=== PATIENT | male | born 1965 | race Caucasian/White ===

== ENCOUNTER 2016-03-21 06:15 | Emergency (ER) | payer OTHER, BC ==
[~2016-03-21] VITALS: Ht 177.8 cm; Wt 83.9 kg
[2016-03-21 06:28] VITALS: TEMP 36.5; Ht 177.8 cm; Wt 83.9 kg
--- NOTE | 2016-03-21 07:27 | DIAGNOSTIC IMAGING REPORT ---
CT SCAN OF THE BRAIN WITHOUT IV CONTRAST CLINICAL HISTORY: Trauma. Fall. COMPARISON STUDY: CT scan of the brain dated 04/27/2013. TECHNIQUE: Unenhanced axial CT scan of the brain is performed from the vertex to the skull base. Automated dose control exposure was utilized. CT DOSE: 537.48 mGy.cm FINDINGS: Brain parenchyma: There are age-advanced involutional changes noting mild subcortical and periventricular microangiopathic disease. There is no hemorrhage, mass effect, or evidence of acute territorial ischemia by CT criteria. Robert-white matter is preserved. No extra-axial fluid collection is seen. Cerebellar calcifications are again noted. Ventricles, sulci, cisterns: Prominent secondary to involutional change. Intracranial vasculature: There is advanced atherosclerotic calcification of the cavernous carotid and vertebral arteries. Calvarium: There is no depressed calvarial fracture. Soft tissues: There is a small frontal scalp contusion. Sinuses and mastoids: The visualized paranasal sinuses are clear. The mastoid air cells are well pneumatized. Orbits: The bony orbits are grossly intact. There are bilateral ocular lens implants. IMPRESSION: 1. There is no hemorrhage, mass effect, or evidence of acute territorial ischemia by CT criteria. 2. Frontal scalp contusion. No depressed calvarial fracture is seen. Electronically signed by: David Lindo M.D. 03/21/2016 7:24 AM
[2016-03-21 08:05] VITALS: BP 117/90; PULSE 88; O2SAT 95
--- NOTE | 2016-03-21 08:08 | EMERGENCY ROOM VISIT NOTE ---
History Report prepared by Vivianibeleuterio: Velvet Ferris Under the Supervision of: Dr. Denny Ugalde D.O. First contact with patient: 06:35 Chief Complaint: HYPOGLYCEMIA Stated Complaint: HYPOGLYCEMIA/FALL Nursing Triage Summary: Patient arrived ALS for evaluation s/p fall related to hypoglycemia. Patient had unwitnessed fall out of wheelchair. Patients found him on the floor and called 911. Upon EMS arrival, patients blood glucose was 22. Patient was given glucagon which elevated glucose and patient became alert and oriented. Patient was then given 1 bag of D10. Patient has skin tear to center of forehead, reports pain 5/10. History of Present Illness The patient is a 50 year old male who presents to the Emergency Room with complaints of sudden hypoglycemia that occurred this morning. The patient came to the ED via ambulance from home. He had an unwitnessed fall out of his wheelchair this morning. His found him on the floor and called 911. EMS reports that the patient's blood sugar was 22 upon arrival. EMS gave him glucagon and he became alert and oriented. He was also given one bag of D10. He is currently experiencing pain in his forehead where he has an abrasion from falling. Otherwise, he denies any pain. He has not eaten anything yet this morning. He adds that he had an IV placed in his artery which was removed when he got into the ED and covered with gauze. Source of History: patient, EMS Onset: this morning Position: other (generalized ) Quality: other (hypoglycemia) Timing: other (sudden) Note: pain in forehead with abrasion Review of Systems See HPI for pertinent positives & negatives. A total of 10 systems reviewed and were otherwise negative. 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 (13) End-stage renal disease on hemodialysis (14) Gram-positive cocci bacteremia (15) History of diabetic ulcer of foot (16) Hyperparathyroidism due to renal insufficiency (17) Hypertension (18) Hypothyroidism (19) infected hematoma R thigh (20) Loss of sensation (21) multipel pna, sepsis (22) multipel pna, sepsis (23) Pneumonia (24) Pulmonary edema (25) Tracheomalacia (26) venous stenosis AVF Family History FH: heart disease Social History Smoking Status: Never Smoker Alcohol Use: none Drug Use: none Marital Status: Housing Status: lives with family Occupation Status: disabled Current/Historical Medications Scheduled Amlodipine Besylate (Norvasc), 2.5 MG PO 4XWK Atorvastatin (Atorvastatin Calcium), 40 MG PO DAILY Bupropion HCl (Bupropion HCl Sr), 150 MG PO DAILY Cinacalcet (Sensipar), 30 MG PO DAILY Clopidogrel Bisulfate (Clopidogrel), 75 MG PO Q2D Fluticasone Furoate-Vilanterol (Breo Ellipta 200-25 Mcg/INH), 1 PUFF INH DAILY Furosemide (Furosemide), 80 MG PO BID Gabapentin (Gabapentin), 100 MG PO BID Insulin Aspart (novoLOG INSULIN PUMP ), 1 EA N/A UD Levothyroxine Sodium (Levothyroxine Sodium), 112 MCG PO DAILY Lidocaine-Prilocaine (Emla), 1 APPLN TOP UD Metoprolol Tartrate (Lopressor) (Lopressor), 50 MG PO BID Sevelamer Carbonate (Renvela), 1,600 MG PO TIDM Umeclidinium [place] (Incruse Ellipta), 1 PUFF INH DAILY Allergies Coded Allergies: Tigecycline (Verified Allergy, Mild, ?RASH, 03/21/16) Penicillins (Verified Allergy, Unknown, PT HAS HAD MEFOXIN W/OUT A PROBLEM , 03/21/16) HAD MEFOXIN W/O PROBLEM Ciprofloxacin (Verified Adverse Reaction, Intermediate, nausea,vomiting, generalized weakness, 03/21/16) Morphine (Verified Adverse Reaction, Intermediate, TREMBLING,NAUSEA AND VOMITING, 03/21/16) Opioid Analgesics (Verified Adverse Reaction, Intermediate, "ALL RX PAIN MEDS CAUSE SEVERE NAUSEA", 03/21/16) Codeine (Verified Adverse Reaction, Mild, NAUSEA AND VOMITING, 03/21/16) QUESTIONABLE ALLERGY Levofloxacin (Verified Adverse Reaction, Mild, Cipro/Levaquin (IV & po) = N & V, 03/21/16) Oxycodone (Verified Adverse Reaction, Unknown, N/V/D, 03/21/16) SPOKE WITH PATIENT ON 07/29/15, DOES NOT REMEMBER ANY DIFFICULTY BREATHING JUST HIT HIM HARD. Physical Exam Vital Signs Date Time Temp Pulse Resp B/P Pulse Ox O2 Delivery O2 Flow Rate FiO2 03/21/16 08:05 88 16 117/90 95 Room Air 03/21/16 06:28 36.5 82 18 164/99 94 Room Air Physical Exam CONSTITUTIONAL/VITAL SIGNS: Reviewed / noted above. GENERAL: Non-toxic in appearance. INTEGUMENTARY: Warm, dry, and [place]. HEAD: Normocephalic. 3 cm non-gaping skin tear/laceration to frontal area with underlying hematoma which does not require repair. EYES: without scleral icterus or trauma. ENT/OROPHARYNX: clear and moist. LYMPHADENOPATHY/NECK: Is supple without lymphadenopathy or meningismus. RESPIRATORY: Lungs clear and equal. CARDIOVASCULAR: Regular rate and rhythm. GI/ABDOMEN: Soft and nontender. No organomegaly or pulsatile mass. No rebound or guarding. Normal bowel sounds. EXTREMITIES: Warm and well perfused. BACK: No CVA tenderness. NEUROLOGICAL: Intact without focal deficits. PSYCHIATRIC: normal affect. MUSCULOSKELETAL: Normally developed with good muscle tone. Medical Decision & Procedures ER Provider Diagnostic Interpretation: CT results as stated below per my review and radiologist interpretation: CT SCAN OF THE BRAIN WITHOUT IV CONTRAST CLINICAL HISTORY: Trauma. Fall. COMPARISON STUDY: CT scan of the brain dated 04/27/2013. TECHNIQUE: Unenhanced axial CT scan of the brain is performed from the vertex to the skull base. Automated dose control exposure was utilized. CT DOSE: 537.48 mGy.cm FINDINGS: Brain parenchyma: There are age-advanced involutional changes noting mild subcortical and periventricular microangiopathic disease. There is no hemorrhage, mass effect, or evidence of acute territorial ischemia by CT criteria. Robert-white matter is preserved. No extra-axial fluid collection is seen. Cerebellar calcifications are again noted. Ventricles, sulci, cisterns: Prominent secondary to involutional change. Intracranial vasculature: There is advanced atherosclerotic calcification of the cavernous carotid and vertebral arteries. Calvarium: There is no depressed calvarial fracture. Soft tissues: There is a small frontal scalp contusion. Sinuses and mastoids: The visualized paranasal sinuses are clear. The mastoid air cells are well pneumatized. Orbits: The bony orbits are grossly intact. There are bilateral ocular lens implants. IMPRESSION: 1. There is no hemorrhage, mass effect, or evidence of acute territorial ischemia by CT criteria. 2. Frontal scalp contusion. No depressed calvarial fracture is seen. Electronically signed by: David Lindo M.D. 03/21/2016 7:24 AM Laboratory Results Test 03/21/16 06:26 Bedside Glucose 133 mg/dl (70-99) Laboratory results as stated above per my review. ED Course 0638: Previous medical records were reviewed. The patient was evaluated in room A2. A complete history and physical examination was performed. 0812: On reevaluation, the patient is doing well. I discussed the results and findings with the patient. He verbalized agreement of the treatment plan. He was discharged home. Medical Decision Differential includes close head injury, intracranial bleed, facial trauma, cervical spine trauma, chest and thoracic trauma, abdominal and intra-abdominal trauma, spine neurologic trauma, extremity trauma. This is a 50-year-old male who presents to the ED after falling out of his wheelchair. The patient was found to be hypoglycemic by EMS with a blood sugar of 22. He was treated for this by EMS. On my evaluation, he is awake, alert and oriented. He has a hematoma and non-gaping skin tear/laceration to the forehead. This does not require repair. The patient was fed here. A CT scan of the brain did not show any acute injury. The patient was felt stable for discharge. Impression Primary Impression: Contusion of head Additional Impressions: Traumatic hematoma of forehead, Hypoglycemia Scribe Attestation The scribe's documentation has been prepared under my direction and personally reviewed by me in its entirety. I confirm that the note above accurately reflects all work, treatment, procedures, and medical decision making performed by me. Departure Information Dispostion Home / Self-Care Referrals Devendra Bland M.D. (PCP) Forms HOME CARE DOCUMENTATION FORM, IMPORTANT VISIT INFORMATION, WORK / SCHOOL INSTRUCTIONS Patient Instructions A Signature Page, ED Contusion Face, My [facility] Additional Instructions Follow-up with your doctor for further care and evaluation in 1-2 days. Return to the emergency department for worsening or new symptoms or any concerns. You have been examined and treated today on an emergency basis only. This is not a substitute for, or an effort to provide, complete comprehensive medical care. It is impossible to recognize and treat all injuries or illnesses in a single emergency department visit. It is therefore important that you follow up closely with your doctor. Call as soon as possible for an appointment.
[2016-03-22] MEDS ORDERED: CEFD300C2 PO (20:09)
[2016-03-29] MEDS ORDERED: LIDO1CRE24 TOP (16:09)
[2016-06-07] MEDS ORDERED: FLUT1INH7 INH (06:04)
[2016-06-07] MEDS ORDERED: UMEC1INH INH (06:04)
[2016-06-07] MEDS ORDERED: CINA0.42 PO (06:04)
[2016-06-07] MEDS ORDERED: SEVE800T7 PO ×2 (08:12→17:37)
[2016-06-07] MEDS ORDERED: METO50TA16 PO (13:43)
[2016-06-07] MEDS ORDERED: LPT40 PO (14:47)
[2016-06-07] MEDS ORDERED: LEVO112T4 PO (15:25)
[2016-06-07] MEDS ORDERED: PLV75 PO (17:20)
[2016-06-07] MEDS ORDERED: NRN100 PO (17:24)
[2016-06-07] MEDS ORDERED: WLLSR150 PO (17:24)
[2016-06-07] MEDS ORDERED: INSPMPNVLG (17:30)
[2016-06-07] MEDS ORDERED: AMLO2.5T PO (17:34)
[2016-07-01] MEDS ORDERED: TRAM-10 PO (13:47)
[2017-02-21] MEDS ORDERED: AZIT-57 PO (11:04)
[2017-02-21] MEDS ORDERED: GFNSR600 PO (11:04)
== END 2016-03-21 08:23 | disposition home or self-care (01) ==
LOC: EDBD 06:15 → C.EDA 06:16
DX: S00.93XA Contusion of unspecified part of head, initial encounter (principal); E11.649 Type 2 diabetes mellitus with hypoglycemia without coma; W05.0XXA Fall from non-moving wheelchair, initial encounter; F31.9 Bipolar disorder, unspecified; E03.9 Hypothyroidism, unspecified; N18.6 End stage renal disease; I12.0 Hypertensive chronic kidney disease with stage 5 chronic kidney disease or end stage renal disease; J44.9 Chronic obstructive pulmonary disease, unspecified

== ENCOUNTER 2016-03-22 17:23 | Emergency (ER) | payer OTHER, BC ==
[~2016-03-22] VITALS: Ht 177.8 cm; Wt 80.9 kg
[2016-03-22 17:30] VITALS: TEMP 37.8; Ht 177.8 cm; Wt 80.9 kg
--- NOTE | 2016-03-22 18:22 | DIAGNOSTIC IMAGING REPORT ---
CHEST ONE VIEW PORTABLE CLINICAL HISTORY: CHEST PAIN dyspnea COMPARISON STUDY: 01/21/2016 FINDINGS: Parenchymal infiltrate left base superimposed upon pre-existing fibrotic change. Mild chronic prominence of pulmonary vasculature. Potential interstitial infiltrate right base. IMPRESSION: Small bibasilar parenchymal infiltrates. Chronic pulmonary vascular congestion. Electronically signed by: Clive Reilly M.D. 03/22/2016 6:21 PM
--- NOTE | 2016-03-22 18:29 | EMERGENCY ROOM VISIT NOTE ---
History Report prepared by Cece: Arlene Almonte Under the Supervision of: Dr. Srikanth Lyons M.D. First contact with patient: 17:37 Chief Complaint: HYPOGLYCEMIA Stated Complaint: HYPOGLYCEMIA Nursing Triage Summary: initial Bsg at home was 21, was given D10 in field, transported to hospital, refusing to have all proceedures done, refuse EKG current bsg is 91, pt. has insulin pump, bilateral fistulas, pt. bsg at 1300 today was 280 left foot dressed, Dr. Thomas took off his toes on left foot, january 20, had an appt. to see Dr. 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 The patient states that the last thing he remembers is washing his hands at the sink, knowing he needed a snack and to check his BSG. He lost consciousness and his called an ambulance. When EMS arrived the patient's BSG was 21. He was given D10 en route to the ED. The patient denies missing any meals today. He is complaining of a cough but does not have any other complaints at this time. He was here yesterday for evaluation after a fall and states that he is recovering well from that. The patient denies fevers and recent illness. He is a dialysis patient and has not missed any dialysis. 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 A total of 10 systems reviewed and were otherwise negative. 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 Nurse's notes were reviewed and I agree with. Family History FH: heart disease Social History Smoking Status: Former Smoker Alcohol Use: none Drug Use: none Marital Status: Housing Status: lives with family Occupation Status: disabled Current/Historical Medications Scheduled Amlodipine Besylate (Norvasc), 2.5 MG PO 4XWK Atorvastatin (Atorvastatin Calcium), 40 MG PO DAILY Bupropion HCl (Bupropion HCl Sr), 150 MG PO DAILY Cefdinir (Omnicef), 1 CAP PO Q2D Cinacalcet (Sensipar), 30 MG PO DAILY Clopidogrel Bisulfate (Clopidogrel), 75 MG PO Q2D Fluticasone Furoate-Vilanterol (Breo Ellipta 200-25 Mcg/INH), 1 PUFF INH DAILY Furosemide (Furosemide), 80 MG PO BID Gabapentin (Gabapentin), 100 MG PO BID Insulin Aspart (novoLOG INSULIN PUMP ), 1 EA N/A UD Levothyroxine Sodium (Levothyroxine Sodium), 112 MCG PO DAILY Lidocaine-Prilocaine (Emla), 1 APPLN TOP UD Metoprolol Tartrate (Lopressor) (Lopressor), 50 MG PO BID Sevelamer Carbonate (Renvela), 1,600 MG PO TIDM Umeclidinium [place] (Incruse Ellipta), 1 PUFF INH DAILY Allergies Coded Allergies: Tigecycline (Verified Allergy, Mild, ?RASH, 03/21/16) Penicillins (Verified Allergy, Unknown, PT HAS HAD MEFOXIN W/OUT A PROBLEM , 03/21/16) HAD MEFOXIN W/O PROBLEM Ciprofloxacin (Verified Adverse Reaction, Intermediate, nausea,vomiting, generalized weakness, 03/21/16) Morphine (Verified Adverse Reaction, Intermediate, TREMBLING,NAUSEA AND VOMITING, 03/21/16) Opioid Analgesics (Verified Adverse Reaction, Intermediate, "ALL RX PAIN MEDS CAUSE SEVERE NAUSEA", 03/21/16) Codeine (Verified Adverse Reaction, Mild, NAUSEA AND VOMITING, 03/21/16) QUESTIONABLE ALLERGY Levofloxacin (Verified Adverse Reaction, Mild, Cipro/Levaquin (IV & po) = N & V, 03/21/16) Oxycodone (Verified Adverse Reaction, Unknown, N/V/D, 03/21/16) SPOKE WITH PATIENT ON 07/29/15, DOES NOT REMEMBER ANY DIFFICULTY BREATHING JUST HIT HIM HARD. Physical Exam Vital Signs Date Time Temp Pulse Resp B/P Pulse Ox O2 Delivery O2 Flow Rate FiO2 03/22/16 20:31 82 18 157/98 96 Room Air 03/22/16 17:30 37.8 76 18 162/100 98 Room Air Physical Exam General: Well developed well nourished chronically ill appearing middle aged male in no acute distress, breathing comfortably on room air. Normal speech HEENT: Normal cephalic atraumatic. Pupils are equal round and reactive to light. Extraocular movements are intact. Oropharynx is pink with moist mucous membranes. No swelling of the mouth lips or tongue. Neck: Supple with a midline trachea. No meningeal signs or stiffness, no JVD or bruits. No Stridor. Chest: Rhonchorous breath sounds bilaterally. Good air movement. No increased work of breathing. Heart: regular rate and rhythm. Abdomen: Soft nontender, nondistended without rebound guarding or rigidity. Extremities: No cyanosis clubbing or edema. No calf tenderness or assymetry. Fistula in the left arm that has a palpable thrill. Spine/Back. Non tender to palpation. No CVA tenderness Skin: Good turgor without rashes. Neurologic exam: Cranial nerves two through 12 are intact. Motor and sensation are intact and symmetrical throughout. Medical Decision & Procedures ER Provider Diagnostic Interpretation: Radiology results as stated below per my review and radiologist interpretation: CHEST ONE VIEW PORTABLE CLINICAL HISTORY: CHEST PAIN dyspnea COMPARISON STUDY: 01/21/2016 FINDINGS: Parenchymal infiltrate left base superimposed upon pre-existing fibrotic change. Mild chronic prominence of pulmonary vasculature. Potential interstitial infiltrate right base. IMPRESSION: Small bibasilar parenchymal infiltrates. Chronic pulmonary vascular congestion. Electronically signed by: Clive Reilly M.D. 03/22/2016 6:21 PM Laboratory Results 03/22/16 18:55 Red Blood Count 4.09, Mean Corpuscular Volume 99.8, Mean Corpuscular Hemoglobin 32.8, Mean Corpuscular Hemoglobin Concent 32.8, Mean Platelet Volume 9.2, Neutrophils (%) (Auto) 66.7, Lymphocytes (%) (Auto) 17.5, Monocytes (%) (Auto) 12.2, Eosinophils (%) (Auto) 2.4, Basophils (%) (Auto) 0.9, Neutrophils # (Auto ) 7.04, Lymphocytes # (Auto) 1.84, Monocytes # (Auto) 1.28, Eosinophils # (Auto ) 0.25, Basophils # (Auto) 0.09 03/22/16 18:55 Test 03/22/16 18:55 03/22/16 20:13 White Blood Count 10.53 K/uL (4.8-10.8) Red Blood Count 4.09 M/uL (4.7-6.1) Hemoglobin 13.4 g/dL (14.0-18.0) Hematocrit 40.8 % (42-52) Mean Corpuscular Volume 99.8 fL (80-100) Mean Corpuscular Hemoglobin 32.8 pg (25-34) Mean Corpuscular Hemoglobin Concent 32.8 g/dl (32-36) Platelet Count 269 K/uL (130-400) Mean Platelet Volume 9.2 fL (7.4-10.4) Neutrophils (%) (Auto) 66.7 % Lymphocytes (%) (Auto) 17.5 % Monocytes (%) (Auto) 12.2 % Eosinophils (%) (Auto) 2.4 % Basophils (%) (Auto) 0.9 % Neutrophils # (Auto) 7.04 K/uL (1.4-6.5) Lymphocytes # (Auto) 1.84 K/uL (1.2-3.4) Monocytes # (Auto) 1.28 K/uL (0.11-0.59) Eosinophils # (Auto) 0.25 K/uL (0-0.5) Basophils # (Auto) 0.09 K/uL (0-0.2) RDW Standard Deviation 53.7 fL (36.4-46.3) RDW Coefficient of Variation 14.9 % (11.5-14.5) Immature Granulocyte % (Auto) 0.3 % Immature Granulocyte # (Auto) 0.03 K/uL (0.00-0.02) Anion Gap 14.0 mmol/L (3-11) Est Creatinine Clear Calc Drug Dose 9.7 ml/min Estimated GFR () 6.7 Estimated GFR (Non- 5.8 BUN/Creatinine Ratio 6.6 (10-20) Calcium Level 8.8 mg/dl (8.5-10.1) Total Bilirubin 0.4 mg/dl (0.2-1) Direct Bilirubin 0.1 mg/dl (0-0.2) Aspartate Amino Transf (AST/SGOT) 21 U/L (15-37) Alanine Aminotransferase (ALT/SGPT) 26 U/L (12-78) Alkaline Phosphatase 133 U/L (45-117) Total Protein 8.7 gm/dl (6.4-8.2) Albumin 3.4 gm/dl (3.4-5.0) Lipase 258 U/L (73-393) Bedside Glucose 135 mg/dl (70-99) Laboratory studies as stated above per my review. Medications Administered Medications (Trade) Dose Ordered Sig/Etta Route Start Time Stop Time Status Last Admin Dose Admin Cefdinir (Omnicef Susp) 300 mg TODAY@1999 PO 03/22/16 20:00 03/22/16 21:00 DC 03/22/16 20:29 300 MG ED Course 1737: Past medical records reviewed. The patient was evaluated in room C6, and a complete history and physical examination were performed. 1848: I reassessed the patient at this time. He is feeling fine and eating dinner. 1935: I reassessed the patient at this time. He is feeling better and resting comfortably. I updated the patient. 1937: Cefdinir 300 mg PO 1999: Cefdinir 300 mg PO 2026: I reassessed the patient at this time. He is resting comfortably. His repeat BSG was 133. I discussed the results and treatment plan with the patient. I answered all pertaining questions that he had. He expressed understanding and verbalized agreement. The patient will be discharged home. Medical Decision Differential diagnoses includes hypoglycemia, infection, dehydration, electrolyte or metabolic abnormality. This patient comes in as described above. He had a hypoglycemic episode but now feels better. He is seen very frequently with hypoglycemia and was seen yesterday in fact and had a CAT scan of his head after falling and was negative. He says he feels fine. He was given some food in the ED here and we did check some blood work. IV access had been previously established initially , he did not want to do any workup but to go home. I did convince him to have blood work and a chest x-ray and food. He was reassessed frequently. His meal tray was ordered but took a while to get here and his blood sugars seemed to drop down again on his blood work. He did eat a significant amount of food and when rechecked, his blood sugar was in the 130s and rechecked about half hour after was in the 260s. His chest x-ray shows a possible infiltrate in the base. I will put him on Omnicef 300 mg by mouth here and then 300 every other day after dialysis. This was as per recommendation of our ED pharmacist and given his dialysis status and allergies. He's done well with cephalosporins before looking through his records. He has no significant electrolyte or metabolic abnormalities otherwise. He is feeling much better and up to going home. I think he is trying to keep his blood sugar a little too tight and tends to bottom his sugar out. I told to try to run a little bit on the high side so he does not keep getting hypoglycemic. He should check his blood sugar frequently especially before bedtime and eat an extra snack before bedtime. He was encouraged to follow-up with his area captain in the next 1 -2 days for recheck and return if: worsening symptoms, any further problems with blood sugar , any new problems or concerns. Impression Primary Impression: Hypoglycemia Additional Impression: Pneumonia Scribe Attestation The scribe's documentation has been prepared under my direction and personally reviewed by me in its entirety. I confirm that the note above accurately reflects all work, treatment, procedures, and medical decision making performed by me. Departure Information Dispostion Home / Self-Care Prescriptions Cefdinir (OMNICEF) 300 Mg Cap 1 CAP PO Q2D for 10 Days, #5 CAP Prov: Srikanth Lyons M.D. 03/22/16 Referrals Devendra Bland M.D. (PCP) Forms HOME CARE DOCUMENTATION FORM, IMPORTANT VISIT INFORMATION, WORK / SCHOOL INSTRUCTIONS Patient Instructions A Signature Page, My [facility] Additional Instructions Rest. Drink plenty of fluids. Check your blood sugar frequently especially before bedtime. Run a little bit on the high side today especially before bedtime Call your area captain tomorrow to get in this week You may have an early pneumonia and I amgoing to start on Omnicef 300 mg take every other day after dialysis for 10 days Return to the ER if: Further problems with her blood sugar, fever or chills, worsening symptoms, any new problems or concerns.
[2016-03-22 19:09] LABS: BASO % 0.9 %; BASO ABS # 0.09 K/uL (0-0.2); COMPLETE YES; EOS % 2.4 %; HEMATOCRIT 40.8 % (42-52); IG% 0.3 %; LYMPH % 17.5 %; LYMPH ABS # 1.84 K/uL (1.2-3.4); MEAN CELL VOLUME 99.8 fL (80-100); MEAN CORPUSCULAR HEMOGLOBIN 32.8 pg (25-34); MEAN CORPUSCULAR HGB CONC 32.8 g/dl (32-36); MEAN PLATELET VOLUME 9.2 fL (7.4-10.4); MONO % 12.2 %; NEUT % 66.7 %; PLATELET COUNT 269 K/uL (130-400); RED BLOOD COUNT 4.09 M/uL (4.7-6.1); WHITE BLOOD COUNT 10.53 K/uL (4.8-10.8)
[2016-03-22 19:38] LABS: BUN/CREATININE RATIO 6.6 (10-20); CALCIUM 8.8 mg/dl (8.5-10.1); POTASSIUM 3.5 mmol/L (3.5-5.1)
[2016-03-22] MEDS ORDERED: CEFDINIR 125 MG/5 ML 60 ML BTL PO STA (19:38)
[2016-03-22 19:40] LABS: CREATININE 9.4 mg/dl (0.60-1.40)
[2016-03-22] MEDS ORDERED: CEFDINIR 125 MG/5 ML 60 ML BTL PO SCH (20:00)
[2016-03-22] MEDS ORDERED: CEFD300C2 PO (20:09)
[2016-03-22 20:31] VITALS: BP 157/98; PULSE 82; O2SAT 96
[2016-03-29] MEDS ORDERED: LIDO1CRE24 TOP (16:09)
[2016-06-07] MEDS ORDERED: UMEC1INH INH (06:04)
[2016-06-07] MEDS ORDERED: FLUT1INH7 INH (06:04)
[2016-06-07] MEDS ORDERED: CINA0.42 PO (06:04)
[2016-06-07] MEDS ORDERED: SEVE800T7 PO ×2 (08:12→17:37)
[2016-06-07] MEDS ORDERED: METO50TA16 PO (13:43)
[2016-06-07] MEDS ORDERED: LPT40 PO (14:47)
[2016-06-07] MEDS ORDERED: LEVO112T4 PO (15:25)
[2016-06-07] MEDS ORDERED: PLV75 PO (17:20)
[2016-06-07] MEDS ORDERED: WLLSR150 PO (17:24)
[2016-06-07] MEDS ORDERED: NRN100 PO (17:24)
[2016-06-07] MEDS ORDERED: INSPMPNVLG (17:30)
[2016-06-07] MEDS ORDERED: AMLO2.5T PO (17:34)
[2016-07-01] MEDS ORDERED: TRAM-10 PO (13:47)
[2017-02-21] MEDS ORDERED: AZIT-57 PO (11:04)
[2017-02-21] MEDS ORDERED: GFNSR600 PO (11:04)
== END 2016-03-22 21:15 | disposition home or self-care (01) ==
LOC: EDBD 17:23 → C.EDC 17:25
DX: E10.649 Type 1 diabetes mellitus with hypoglycemia without coma (principal); J18.9 Pneumonia, unspecified organism; E10.22 Type 1 diabetes mellitus with diabetic chronic kidney disease; N18.6 End stage renal disease; I12.0 Hypertensive chronic kidney disease with stage 5 chronic kidney disease or end stage renal disease; Z99.2 Dependence on renal dialysis; Z79.4 Long term (current) use of insulin; Z79.899 Other long term (current) drug therapy

== ENCOUNTER 2016-03-23 08:00 | Emergency (ER) | payer OTHER, BC ==
[~2016-03-23] VITALS: Ht 177.8 cm; Wt 76.2 kg
[~2016-03-23 08:00] MED LIST: CEFD300C2 PO
[2016-03-23 08:14] VITALS: TEMP 36.1; Ht 177.8 cm; Wt 76.2 kg
--- NOTE | 2016-03-23 08:28 | EMERGENCY ROOM VISIT NOTE ---
History First contact with patient: 08:07 Chief Complaint: HYPOGLYCEMIA Stated Complaint: HYPOGLYCEMIA History of Present Illness The patient is a 50 year old male who presents to the Emergency Room with complaints of hypoglycemia He checked his blood sugar at 3:30am, measured to be 121 He was drinking soda and half a serving of crackers (11g carb crackers + 40 g from soda), so he calculated his glucose compensation as 5.1 units of insulin as he works on a 1 unit insulin for every 10 g of carb. To be safe, he only gave himself 4.5units in attempt to prevent hypoglycemia. His pump is fixed at 0.65 units insulin per hour At 5 am, he was sitting at hos computer, ,and he remembers thinking he still had 30min to next BS testing. This is the last thing he remembers found him face down in the kitchen, fallen off his wheelchair, around ~7am Patient was confused and regained consciousness in the ambulance Currently patient feels he is shivering and has pain in head from - reopened wound (previous lesion) He is on Plavix every other day (last dose taken on Tuesday, , missed today's , next dose due Tue) Review of Systems See HPI for pertinent positives and negatives. A total of ten systems were reviewed and were otherwise negative. 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 (13) End-stage renal disease on hemodialysis (14) Gram-positive cocci bacteremia (15) History of diabetic ulcer of foot (16) Hyperparathyroidism due to renal insufficiency (17) Hypertension (18) Hypothyroidism (19) infected hematoma R thigh (20) Loss of sensation (21) multipel pna, sepsis (22) multipel pna, sepsis (23) Pneumonia (24) Pulmonary edema (25) Tracheomalacia (26) venous stenosis AVF Family History FH: heart disease Social History Smoking Status: Former Smoker Alcohol Use: none Drug Use: none Marital Status: Housing Status: lives with family Occupation Status: disabled Current/Historical Medications Scheduled Amlodipine Besylate (Norvasc), 2.5 MG PO 4XWK Atorvastatin (Atorvastatin Calcium), 40 MG PO DAILY Bupropion HCl (Bupropion HCl Sr), 150 MG PO DAILY Cefdinir (Omnicef), 1 CAP PO Q2D Cinacalcet (Sensipar), 30 MG PO DAILY Clopidogrel Bisulfate (Clopidogrel), 75 MG PO Q2D Fluticasone Furoate-Vilanterol (Breo Ellipta 200-25 Mcg/INH), 1 PUFF INH DAILY Furosemide (Furosemide), 80 MG PO BID Gabapentin (Gabapentin), 100 MG PO BID Insulin Aspart (novoLOG INSULIN PUMP ), 1 EA N/A UD Levothyroxine Sodium (Levothyroxine Sodium), 112 MCG PO DAILY Lidocaine-Prilocaine (Emla), 1 APPLN TOP UD Metoprolol Tartrate (Lopressor) (Lopressor), 50 MG PO BID Sevelamer Carbonate (Renvela), 1,600 MG PO TIDM Umeclidinium [place] (Incruse Ellipta), 1 PUFF INH DAILY Allergies Coded Allergies: Tigecycline (Verified Allergy, Mild, ?RASH, 03/23/16) Penicillins (Verified Allergy, Unknown, PT HAS HAD MEFOXIN W/OUT A PROBLEM , 03/23/16) HAD MEFOXIN W/O PROBLEM Ciprofloxacin (Verified Adverse Reaction, Intermediate, nausea,vomiting, generalized weakness, 03/23/16) Morphine (Verified Adverse Reaction, Intermediate, TREMBLING,NAUSEA AND VOMITING, 03/23/16) Opioid Analgesics (Verified Adverse Reaction, Intermediate, "ALL RX PAIN MEDS CAUSE SEVERE NAUSEA", 03/23/16) Codeine (Verified Adverse Reaction, Mild, NAUSEA AND VOMITING, 03/23/16) QUESTIONABLE ALLERGY Levofloxacin (Verified Adverse Reaction, Mild, Cipro/Levaquin (IV & po) = N & V, 03/23/16) Oxycodone (Verified Adverse Reaction, Unknown, N/V/D, 03/23/16) SPOKE WITH PATIENT ON 07/29/15, DOES NOT REMEMBER ANY DIFFICULTY BREATHING JUST HIT HIM HARD. Physical Exam Vital Signs Date Time Temp Pulse Resp B/P Pulse Ox O2 Delivery O2 Flow Rate FiO2 03/23/16 09:00 88 16 168/89 94 03/23/16 08:14 36.1 89 20 184/99 96 Nasal Cannula 4.0 Physical Exam GENERAL: alert, well appearing, thin, sitting in bed, no acute distress, non- toxic HEAD: Normocephalic, traumatic hematoma/laceration on center of forehead. No sinus tenderness. [Fontanels soft] EYES: PERRL, EOMI, normal conjunctiva OROPHARYNX: no exudate, no erythema, lips, buccal mucosa, and tongue normal and mucous membranes are dry NECK: supple, no nuchal rigidity, no adenopathy, non-tender LUNGS: Clear to auscultation. Normal chest wall mechanics, good air entry. No crepitations, crackles, or wheezes HEART: no murmurs, S1 normal and S2 normal CHEST: No reproducible tenderness. ABDOMEN: abdomen soft, non-tender, normo-active bowel sounds, no masses, no rebound or guarding. SKIN: Warm, pink, dry. No erythema, rashes, or bruising. Dry blood around laceration on forehead. EXTREMITIES: Grossly normal. No pitting edema. Calves non tender. NEURO: Alert, Ox3. No focal deficits. Normal sensorium, cranial nerves II-XII grossly intact, normal speech. PSYCH: Mood and affect appropriate. Medical Decision & Procedures Laboratory Results Test 03/23/16 08:11 Bedside Glucose 57 mg/dl (70-99) Medications Administered Medications (Trade) Dose Ordered Sig/Etta Route Start Time Stop Time Status Last Admin Dose Admin Lidocaine/ Prilocaine (Emla 2.5% Crm) 1 ea STK-MED ONCE .ROUTE 03/23/16 08:50 03/23/16 08:51 DC 03/23/16 08:55 1 EA Medical Decision 50 year old male presented with fall secondary to hypoglycemia The patient was evaluated in room A9. A complete history and physical exam was performed. Differential diagnosis includes etiologies such as vasovagal event, infection, hypoglycemia, electrolyte abnormalities, cardiac sources, intracerebral event, toxicologic, neurologic, as well as others were entertained. Patient was given three glucose tubes by EMS and on arrival to hospital, blood sugar level was 57. Patient's wound was cleaned. He was provided with a meal that should improve glucose levels. Transport to his dialysis center was re-arranged from the hospital instead of from home Advised to follow up with endocrinologists to discuss necessary changes in insulin regimen, given the number of recurrences of hypoglycemia. Patient understands and agreeable with care plan. Patient discharged home well. Impression Primary Impression: Hypoglycemia Additional Impression: Forehead laceration Departure Information Dispostion Home / Self-Care Condition FAIR Referrals Devendra Bland M.D. (PCP) Patient Instructions A Signature Page, My [facility] Additional Instructions You were seen in ED today because of a hypoglycemic episode. You were given three glucose tubes by EMS and on arrival to hospital, your blood sugar was 57. Since then we have provided you with a meal that should improve your glucose levels. Given the number of recurrences of hypoglycemia, it would be advisable to see your endocrinologists to discuss necessary changes in insulin regimen. You have been examined and treated today on an emergency basis only. This is not a substitute for, or an effort to provide, complete comprehensive medical care. It is impossible to recognize and treat all injuries or illnesses in a single emergency department visit. It is therefore important that you make a follow up with your physician for close monitoring. Return for worsening symptoms or if you develop fever, vomiting, or any other concerning symptoms.
[2016-03-23] MEDS ORDERED: LIDOCAINE/PRILOCAINE 2.5% EA CRM ONE (08:50)
[2016-03-23 09:00] VITALS: BP 168/89; PULSE 88; O2SAT 94
--- NOTE | 2016-03-23 10:41 | EMERGENCY ROOM VISIT NOTE ---
History Report prepared by Cece: Juanita Chamberlain Under the Supervision of: Dr. Denny Ugalde D.O. First contact with patient: 08:07 Chief Complaint: HYPOGLYCEMIA Stated Complaint: HYPOGLYCEMIA Nursing Triage Summary: Patient to hospital via EMS. found patient on kitchen floor face down at approximately 0630. Patient was confused. called EMS. Last BSG last night was 121. Upon EMS arrival BSG was 50. Glucose tube x2 given. BSG recheck 41. Glucose tube x1 given. BSG recheck 58. BSG check upon arrival to ED 57. Clotted and dried blood noted to patients forehead. EMS states believed laceration that was treated in ED on Tuesday reopened. EMS states patient was A&Ox4. Patient is on plavix. Dialysis patient. To get dialysis today. Left AV fistula noted. History of Present Illness The patient is a 50 year old male with a history of type 2 diabetes arriving by ambulance who presents to the Emergency Room with complaints of hypoglycemia. Patient states that he last checked his BSG at 0330 and it was at 121. He then drank soda and ate a half of a serving of crackers (51 g carbohydrates), and then gave himself 4.5 units (1 unit per 10 g carbs) of insulin at 0.65 units per hour via pump. Patient states that he was doing well and was sitting at his computer with 30 minutes until his next blood sugar testing, however, he was then found face down on the kitchen floor at 1.5 hours later (0700) by his . Upon arrival of EMS, patient's BSG was at 50. He was given tube x 2 of glucose PO but BSG still read at 41. Another tube of glucose PO was given and BSG increased to 57. Patient then regained consciousness in the ambulance. Patient states that he has pain in his head secondary to the fall. He states that his wound on his forehead that he obtained from a similar episode/fall 2 nights prior, reopened when he fell and his his head this morning. He denies other injuries or complaints secondary to this episode this morning. Patient is currently on Plavix with his last dose 2 days prior. He is a dialysis patient and is due for his procedure this morning. Source of History: patient, EMS Onset: 0700 Position: head Quality: other (hypoglycemia ) Timing: other (improving) Modifying Factors (Relieving): other (glucose) Associated Symptoms: + headache Review of Systems See HPI for pertinent positives & negatives. A total of 10 systems reviewed and were otherwise negative. 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 (13) End-stage renal disease on hemodialysis (14) Gram-positive cocci bacteremia (15) History of diabetic ulcer of foot (16) Hyperparathyroidism due to renal insufficiency (17) Hypertension (18) Hypothyroidism (19) infected hematoma R thigh (20) Loss of sensation (21) multipel pna, sepsis (22) multipel pna, sepsis (23) Pneumonia (24) Pulmonary edema (25) Tracheomalacia (26) venous stenosis AVF Family History FH: heart disease Social History Smoking Status: Former Smoker Alcohol Use: none Drug Use: none Marital Status: Housing Status: lives with family Occupation Status: disabled Current/Historical Medications Scheduled Amlodipine Besylate (Norvasc), 2.5 MG PO 4XWK Atorvastatin (Atorvastatin Calcium), 40 MG PO DAILY Bupropion HCl (Bupropion HCl Sr), 150 MG PO DAILY Cefdinir (Omnicef), 1 CAP PO Q2D Cinacalcet (Sensipar), 30 MG PO DAILY Clopidogrel Bisulfate (Clopidogrel), 75 MG PO Q2D Fluticasone Furoate-Vilanterol (Breo Ellipta 200-25 Mcg/INH), 1 PUFF INH DAILY Furosemide (Furosemide), 80 MG PO BID Gabapentin (Gabapentin), 100 MG PO BID Insulin Aspart (novoLOG INSULIN PUMP ), 1 EA N/A UD Levothyroxine Sodium (Levothyroxine Sodium), 112 MCG PO DAILY Lidocaine-Prilocaine (Emla), 1 APPLN TOP UD Metoprolol Tartrate (Lopressor) (Lopressor), 50 MG PO BID Sevelamer Carbonate (Renvela), 1,600 MG PO TIDM Umeclidinium [place] (Incruse Ellipta), 1 PUFF INH DAILY Allergies Coded Allergies: Tigecycline (Verified Allergy, Mild, ?RASH, 03/23/16) Penicillins (Verified Allergy, Unknown, PT HAS HAD MEFOXIN W/OUT A PROBLEM , 03/23/16) HAD MEFOXIN W/O PROBLEM Ciprofloxacin (Verified Adverse Reaction, Intermediate, nausea,vomiting, generalized weakness, 03/23/16) Morphine (Verified Adverse Reaction, Intermediate, TREMBLING,NAUSEA AND VOMITING, 03/23/16) Opioid Analgesics (Verified Adverse Reaction, Intermediate, "ALL RX PAIN MEDS CAUSE SEVERE NAUSEA", 03/23/16) Codeine (Verified Adverse Reaction, Mild, NAUSEA AND VOMITING, 03/23/16) QUESTIONABLE ALLERGY Levofloxacin (Verified Adverse Reaction, Mild, Cipro/Levaquin (IV & po) = N & V, 03/23/16) Oxycodone (Verified Adverse Reaction, Unknown, N/V/D, 03/23/16) SPOKE WITH PATIENT ON 07/29/15, DOES NOT REMEMBER ANY DIFFICULTY BREATHING JUST HIT HIM HARD. Physical Exam Vital Signs Date Time Temp Pulse Resp B/P Pulse Ox O2 Delivery O2 Flow Rate FiO2 03/23/16 09:00 88 16 168/89 94 03/23/16 08:14 36.1 89 20 184/99 96 Nasal Cannula 4.0 Physical Exam CONSTITUTIONAL/VITAL SIGNS: Reviewed / noted above. GENERAL: Non-toxic in appearance. INTEGUMENTARY: Warm, dry, and [place]. HEAD: Hematoma on the forehead that was present from his fall 2 days prior, although the skin wound appears to have reopened slightly. No active bleeding. No evidence of infection. EYES: without scleral icterus or trauma. ENT/OROPHARYNX: clear and moist. LYMPHADENOPATHY/NECK: Is supple without lymphadenopathy or meningismus. RESPIRATORY: Lungs clear and equal. CARDIOVASCULAR: Regular rate and rhythm. GI/ABDOMEN: Soft and nontender. No organomegaly or pulsatile mass. No rebound or guarding. Normal bowel sounds. EXTREMITIES: Warm and well perfused. BACK: No CVA tenderness. NEUROLOGICAL: Intact without focal deficits. PSYCHIATRIC: normal affect. MUSCULOSKELETAL: Normally developed with good muscle tone. Medical Decision & Procedures Laboratory Results Test 03/23/16 08:11 Bedside Glucose 57 mg/dl (70-99) Laboratory results as stated above per my review. Medications Administered Medications (Trade) Dose Ordered Sig/Etta Route Start Time Stop Time Status Last Admin Dose Admin Lidocaine/ Prilocaine (Emla 2.5% Crm) 1 ea STK-MED ONCE .ROUTE 03/23/16 08:50 03/23/16 08:51 DC 03/23/16 08:55 1 EA ED Course 0807: Previous medical records were reviewed. The patient was evaluated in room A9. A complete history and physical examination was performed. 0815: A meal tray was ordered for the patient. He will go to dialysis when he is finished eating and his BSG is stable. 0850: Lidocaine/Prilocaine 1 ea Route was ordered. 0915: Upon reevaluation, the patient was doing well and was feeling better after eating breakfast. His blood sugar has increased. He will now go to dialysis. Patient verbalized his understanding and agreement with the treatment plan, and he is now ready for disposition. Medical Decision Differential diagnosis: Etiologies such as metabolic, infection, hypo/hyperglycemia, electrolyte abnormalities, cardiac sources, intracerebral event, toxicologic, neurologic, as well as others were entertained. This is a 50-year-old male who presents to the ED with a chief complaint of hypoglycemic episode and a fall. The patient was seen 2 days ago by myself for the same symptoms. The patient became hypoglycemic and fell out of his wheelchair hitting his forehead. The patient did the same today. A CT scan was done at that time did not show any intracranial pathology. The patient's symptoms today seemed to have resolved after improving his blood glucose. He was fed here. The head wound appears about the same other than the small amount of opening of the previous skin injury. There is no active bleeding. No contamination. The patient is due for dialysis this morning. He is felt to be stable for discharge to dialysis at this time. He is awake, alert and oriented. Denies any specific complaints. Impression Primary Impression: Hypoglycemia Scribe Attestation The scribe's documentation has been prepared under my direction and personally reviewed by me in its entirety. I confirm that the note above accurately reflects all work, treatment, procedures, and medical decision making performed by me. Departure Information Dispostion Other (Dialysis) Referrals Devendra Bland M.D. (PCP) Forms HOME CARE DOCUMENTATION FORM, IMPORTANT VISIT INFORMATION Patient Instructions A Signature Page, My [facility]
[2016-03-29] MEDS ORDERED: LIDO1CRE24 TOP (16:09)
[2016-06-07] MEDS ORDERED: UMEC1INH INH (06:04)
[2016-06-07] MEDS ORDERED: FLUT1INH7 INH (06:04)
[2016-06-07] MEDS ORDERED: CINA0.42 PO (06:04)
[2016-06-07] MEDS ORDERED: SEVE800T7 PO ×2 (08:12→17:37)
[2016-06-07] MEDS ORDERED: METO50TA16 PO (13:43)
[2016-06-07] MEDS ORDERED: LPT40 PO (14:47)
[2016-06-07] MEDS ORDERED: LEVO112T4 PO (15:25)
[2016-06-07] MEDS ORDERED: PLV75 PO (17:20)
[2016-06-07] MEDS ORDERED: WLLSR150 PO (17:24)
[2016-06-07] MEDS ORDERED: NRN100 PO (17:24)
[2016-06-07] MEDS ORDERED: INSPMPNVLG (17:30)
[2016-06-07] MEDS ORDERED: AMLO2.5T PO (17:34)
[2016-07-01] MEDS ORDERED: TRAM-10 PO (13:47)
== END 2016-03-23 09:03 | disposition home or self-care (01) ==
LOC: EDBD 08:00 → C.EDA 08:01
DX: E10.649 Type 1 diabetes mellitus with hypoglycemia without coma (principal); S01.81XA Laceration without foreign body of other part of head, initial encounter; W19.XXXA Unspecified fall, initial encounter; Z96.41 Presence of insulin pump (external) (internal); F31.9 Bipolar disorder, unspecified; E10.40 Type 1 diabetes mellitus with diabetic neuropathy, unspecified; N18.6 End stage renal disease; I12.0 Hypertensive chronic kidney disease with stage 5 chronic kidney disease or end stage renal disease; E21.1 Secondary hyperparathyroidism, not elsewhere classified; E03.9 Hypothyroidism, unspecified; Z87.01 Personal history of pneumonia (recurrent); Z87.891 Personal history of nicotine dependence; Z79.4 Long term (current) use of insulin; Z79.899 Other long term (current) drug therapy

== ENCOUNTER → 2016-03-26 | Outpatient (CLI) | payer OTHER, BC ==
[~2016-03-26] MED LIST changes: +AMLO2.5T PO; +BUPR200T2 PO; +CINA0.42 PO; +FLUT1INH7 INH; +INSPMPNVLG; +LEVO112T4 PO; +LIDO1CRE16 TOP; +LIDO1CRE24 TOP; +LPT40 PO; +LSX40 PO; +LSX80 PO; +METO50TA16 PO; +NRN100 PO; +PLV75 PO; +SEVE800T7 PO; +TRAM-10 PO; +UMEC1INH INH; +WLLSR150 PO
--- NOTE | 2016-03-26 10:35 | DIAGNOSTIC IMAGING REPORT ---
CT OF THE CHEST WITHOUT IV CONTRAST CLINICAL HISTORY: Chronic bronchitis. Pseudomonas infection. COPD COMPARISON STUDY: 07/07/2015 CT DOSE: 489.88 mGy.cm TECHNIQUE: CT of the thorax was performed from the thoracic inlet to the lung bases. Images are reviewed in the axial, sagittal, and coronal planes. IV contrast was not administered for this examination. FINDINGS: Thyroid: Imaged portions of the thyroid gland are normal in appearance. Thoracic aorta: The thoracic aorta is normal in course and caliber, noting standard 3 vessel arch anatomy. Heart: The heart is mildly enlarged. There are coronary artery calcifications present. Lungs and pleural spaces: There is lower lobe bronchiectasis and dense bilateral lower lobe consolidation. There are diffuse bilateral upper lobe acinar opacities. The findings are consistent with a bilateral pneumonitis. Mediastinum: There is mild mediastinal lymphadenopathy, slightly progressive when compared the prior study and likely reactive. Hilar nodes are difficult to assess given the lack of intravenous contrast. There is no pathologic axillary adenopathy Upper abdomen: The kidneys appear atrophic and partially calcified. Skeletal structures: The bones appear somewhat chalky suggesting renal osteodystrophy. IMPRESSION: 1. Progressive bilateral pulmonary airspace opacities, with lower lobe bronchiectatic change and dense lower lobe consolidation. The findings are consistent with a pneumonitis 2. Mild mediastinal lymphadenopathy likely reactive Electronically signed by: Issac Harrell M.D. 03/26/2016 10:33 AM Dictated Date/Time: 03/26/2016 10:28 AM
[2016-03-26 11:24] LABS: PROSTATE SPECIFIC ANTIGEN 0.928 ng/ml (0.000-4.000)
--- NOTE | 2016-03-30 10:36 | CODING QUERY MEDICAL NECESSITY ---
SUPPORTING DIAGNOSIS NEEDED A supporting diagnosis is required for the test/procedure performed on this patient in order for us to be reimbursed by the patient's insurance. Please provide a supporting diagnosis for the following test/procedure listed below next to the test name along with your signature. *If there is no additional diagnosis for this patient that would support the following test/procedure please document that below next to the test/procedure. Test(s)/Procedure(s) that require a supporting diagnosis: DOS 03/26 * PSA DIAGNOSIS: * Lipids DIAGNOSIS: Provider Signature: Date: Thank you Fauzia Hannon Health Information Management Once completed, please kindly fax back to [phone] For questions please call [phone]
== END | disposition home or self-care (01) ==
LOC: C.CTS 09:49
PROVIDERS: ATTEND Internal Medicine Pulmonary Disease
DX: J42 Unspecified chronic bronchitis (principal); B96.5 Pseudomonas (aeruginosa) (mallei) (pseudomallei) as the cause of diseases classified elsewhere; J44.9 Chronic obstructive pulmonary disease, unspecified; R93.8 Abnormal findings on diagnostic imaging of other specified body structures

== ENCOUNTER 2016-06-07 17:43 | Emergency (ER) | payer OTHER, BC ==
[~2016-06-07] VITALS: Ht 2900.7 cm; Wt 82.5 kg
[~2016-06-07 17:43] MED LIST changes: -BUPR200T2 PO; -CEFD300C2 PO; -LIDO1CRE16 TOP; -LSX40 PO; -LSX80 PO; -TRAM-10 PO
[2016-06-07] MEDS ORDERED: LIDO1CRE16 TOP (17:53)
[2016-06-07 17:55] VITALS: TEMP 36.7; Ht 2900.7 cm; Wt 82.5 kg
[2016-06-07 18:32] LABS: BASO % 0.9 %; BASO ABS # 0.08 K/uL (0-0.2); COMPLETE YES; EOS % 2.5 %; HEMATOCRIT 37.9 % (42-52); IG% 0.2 %; LYMPH % 24.4 %; LYMPH ABS # 2.11 K/uL (1.2-3.4); MEAN CELL VOLUME 100.5 fL (80-100); MEAN CORPUSCULAR HEMOGLOBIN 32.9 pg (25-34); MEAN CORPUSCULAR HGB CONC 32.7 g/dl (32-36); MEAN PLATELET VOLUME 9.4 fL (7.4-10.4); PLATELET COUNT 303 K/uL (130-400); RED BLOOD COUNT 3.77 M/uL (4.7-6.1); WHITE BLOOD COUNT 8.65 K/uL (4.8-10.8)
[2016-06-07 19:05] LABS: ALB/GLOB RATIO 0.7 (0.9-2); BUN/CREATININE RATIO 3.7 (10-20); CALCIUM 8.9 mg/dl (8.5-10.1); CREATININE 8.9 mg/dl (0.60-1.40); POTASSIUM 3.2 mmol/L (3.5-5.1)
[2016-06-07] MEDS ORDERED: LSX40 PO (20:24)
[2016-06-07 21:47] VITALS: BP 116/72; PULSE 78; O2SAT 99
--- NOTE | 2016-06-08 02:23 | EMERGENCY ROOM VISIT NOTE ---
History Report prepared by Cece: Hal Coyle Under the Supervision of: Dr. Justice Shepherd M.D. First contact with patient: 17:47 Chief Complaint: HYPOGLYCEMIA Stated Complaint: HYPOGLYCEMIA History of Present Illness The patient is a 50 year old male who presents to the Emergency Room with complaints of sudden hypoglycemia occurring prior to arrival. Per the nursing staff, the patient was unresponsive when the ambulance got there, and he was given D-10 because his blood sugars were low. The patient states that he has been snacking all day. He states that he is supposed to get dialysis tomorrow, and he states that he changed his pump site today. He states that two hours after he changes his pump site, his blood sugar usually crashes, and he states that it was changed around 1100 today. He additionally states that he had a cough starting this morning. The patient states that he uses a percussion vest twice a day, and he denies using any nebulizer. Pt denies LOC, headache, fevers , chills, diaphoresis, visual changes, neck pain, chest pain, breathing difficulties, nausea, vomiting, abdominal pain, back pain, melena, hematochezia , urinary symptoms, numbness, weakness, lymphadenopathy, rash, or other complaints. Source of History: patient, nursing staff Onset: prior to arrival Position: other (global) Quality: other (hypoglycemia) Timing: other (sudden) Associated Symptoms: + cough Review of Systems See HPI for pertinent positives and negatives. A total of ten systems were reviewed and were otherwise negative. 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 (13) End-stage renal disease on hemodialysis (14) Gram-positive cocci bacteremia (15) History of diabetic ulcer of foot (16) Hyperparathyroidism due to renal insufficiency (17) Hypertension (18) Hypothyroidism (19) infected hematoma R thigh (20) Loss of sensation (21) multipel pna, sepsis (22) multipel pna, sepsis (23) Pneumonia (24) Pulmonary edema (25) Tracheomalacia (26) venous stenosis AVF Family History FH: heart disease Social History Smoking Status: Former Smoker Alcohol Use: none Drug Use: none Marital Status: Housing Status: lives with family Occupation Status: disabled Current/Historical Medications Scheduled Amlodipine Besylate (Norvasc), 2.5 MG PO 4XWK Atorvastatin (Atorvastatin Calcium), 40 MG PO DAILY Bupropion HCl (Bupropion HCl Sr), 150 MG PO DAILY Cinacalcet (Sensipar), 30 MG PO DAILY Clopidogrel Bisulfate (Clopidogrel), 75 MG PO Q2D Fluticasone Furoate-Vilanterol (Breo Ellipta 200-25 Mcg/INH), 1 PUFF INH DAILY Furosemide (Furosemide), 80 MG PO BID Gabapentin (Gabapentin), 100 MG PO BID Insulin Aspart (novoLOG INSULIN PUMP ), 1 EA N/A UD Levothyroxine Sodium (Levothyroxine Sodium), 112 MCG PO DAILY Lidocaine-Prilocaine (Lidocaine/Prilocaine), 1 APPLN TOP UD Metoprolol Tartrate (Lopressor) (Lopressor), 50 MG PO BID Sevelamer Carbonate (Renvela), 1,600 MG PO TIDM Sevelamer Carbonate (Renvela), 800 MG PO DAILY Umeclidinium [place] (Incruse Ellipta), 1 PUFF INH DAILY Allergies Coded Allergies: Tigecycline (Verified Allergy, Mild, ?RASH, 06/07/16) Penicillins (Verified Allergy, Unknown, PT HAS HAD MEFOXIN W/OUT A PROBLEM , 06/07/16) HAD MEFOXIN W/O PROBLEM Ciprofloxacin (Verified Adverse Reaction, Intermediate, nausea,vomiting, generalized weakness, 06/07/16) Morphine (Verified Adverse Reaction, Intermediate, TREMBLING,NAUSEA AND VOMITING, 06/07/16) Opioid Analgesics (Verified Adverse Reaction, Intermediate, "ALL RX PAIN MEDS CAUSE SEVERE NAUSEA", 06/07/16) Codeine (Verified Adverse Reaction, Mild, NAUSEA AND VOMITING, 06/07/16) QUESTIONABLE ALLERGY Levofloxacin (Verified Adverse Reaction, Mild, Cipro/Levaquin (IV & po) = N & V, 06/07/16) Oxycodone (Verified Adverse Reaction, Unknown, N/V/D, 06/07/16) SPOKE WITH PATIENT ON 07/29/15, DOES NOT REMEMBER ANY DIFFICULTY BREATHING JUST HIT HIM HARD. Physical Exam Vital Signs Date Time Temp Pulse Resp B/P Pulse Ox O2 Delivery O2 Flow Rate FiO2 06/07/16 21:47 78 116/72 99 Room Air 06/07/16 17:55 36.7 67 18 122/76 97 Room Air Physical Exam GENERAL: Awake, alert, tired-appearing, in no distress HENT: Normocephalic, atraumatic. Oropharynx unremarkable. EYES: Normal conjunctiva. Sclera non-icteric. NECK: Supple. No nuchal rigidity. FROM. No JVD. RESPIRATORY: Some scattered rhonchi CARDIAC: Regular rate, normal rhythm. Extremities warm and well perfused. Pulses equal. ABDOMEN: Soft, non-distended. No tenderness to palpation. No rebound or guarding. No masses. RECTAL: Deferred. MUSCULOSKELETAL: Chest examination reveals no tenderness. The back is symmetrical on inspection without obvious abnormality. There is no CVA tenderness to palpation. No joint edema. LOWER EXTREMITIES: Chronic miscoloration in the lower extremities. 1+ edema worse on the right side, and he states that this is chronic. NEURO: Normal sensorium. No sensory or motor deficits noted. SKIN: No rash or jaundice noted. Medical Decision & Procedures Laboratory Results 06/07/16 18:18 Red Blood Count 3.77, Mean Corpuscular Volume 100.5, Mean Corpuscular Hemoglobin 32.9, Mean Corpuscular Hemoglobin Concent 32.7, Mean Platelet Volume 9.4, Neutrophils (%) (Auto) 63.0, Lymphocytes (%) (Auto) 24.4, Monocytes (%) ( Auto) 9.0, Eosinophils (%) (Auto) 2.5, Basophils (%) (Auto) 0.9, Neutrophils # ( Auto) 5.44, Lymphocytes # (Auto) 2.11, Monocytes # (Auto) 0.78, Eosinophils # ( Auto) 0.22, Basophils # (Auto) 0.08 06/07/16 18:18 Test 06/07/16 18:18 06/07/16 21:25 White Blood Count 8.65 K/uL (4.8-10.8) Red Blood Count 3.77 M/uL (4.7-6.1) Hemoglobin 12.4 g/dL (14.0-18.0) Hematocrit 37.9 % (42-52) Mean Corpuscular Volume 100.5 fL (80-100) Mean Corpuscular Hemoglobin 32.9 pg (25-34) Mean Corpuscular Hemoglobin Concent 32.7 g/dl (32-36) Platelet Count 303 K/uL (130-400) Mean Platelet Volume 9.4 fL (7.4-10.4) Neutrophils (%) (Auto) 63.0 % Lymphocytes (%) (Auto) 24.4 % Monocytes (%) (Auto) 9.0 % Eosinophils (%) (Auto) 2.5 % Basophils (%) (Auto) 0.9 % Neutrophils # (Auto) 5.44 K/uL (1.4-6.5) Lymphocytes # (Auto) 2.11 K/uL (1.2-3.4) Monocytes # (Auto) 0.78 K/uL (0.11-0.59) Eosinophils # (Auto) 0.22 K/uL (0-0.5) Basophils # (Auto) 0.08 K/uL (0-0.2) RDW Standard Deviation 56.3 fL (36.4-46.3) RDW Coefficient of Variation 15.4 % (11.5-14.5) Immature Granulocyte % (Auto) 0.2 % Immature Granulocyte # (Auto) 0.02 K/uL (0.00-0.02) Anion Gap 10.0 mmol/L (3-11) Est Creatinine Clear Calc Drug Dose 11.6 ml/min Estimated GFR () 7.2 Estimated GFR (Non- 6.2 BUN/Creatinine Ratio 3.7 (10-20) Calcium Level 8.9 mg/dl (8.5-10.1) Total Bilirubin 0.6 mg/dl (0.2-1) Aspartate Amino Transf (AST/SGOT) 24 U/L (15-37) Alanine Aminotransferase (ALT/SGPT) 28 U/L (12-78) Alkaline Phosphatase 129 U/L (45-117) Total Protein 8.2 gm/dl (6.4-8.2) Albumin 3.3 gm/dl (3.4-5.0) Globulin 4.9 gm/dl (2.5-4.0) Albumin/Globulin Ratio 0.7 (0.9-2) Bedside Glucose 143 mg/dl (70-99) Laboratory results reviewed by me ED Course 1746: The patient was evaluated in room B9. A complete history and physical exam was performed. 2020: I reevaluated the patient, and he was doing well and resting. 2129: I reevaluated the patient, and he was comfortable, and his sugar was 143. Discussed results and discharge instructions: He verbalized understanding and agreement. The patient is ready for discharge. Medical Decision Triage Nursing notes reviewed. The patient's presentation and history were concerning for hypoglycemia. Etiologies such as metabolic, infection, hypo/hyperglycemia, electrolyte abnormalities, cardiac sources, intracerebral event, toxicologic, neurologic, as well as others were entertained. The patient was evaluated. He has a frequent history for hypoglycemia. He was recovering after receiving IV dextrose. He was without complaints. He states he was in good health for him prior to the episode. The patient was given dinner. His glucose was rechecked. It remained normal. He felt well. He desired discharge. His CBC showed a mild anemia. Chem panel revealed an elevated creatinine consistent with his known renal failure. Since he is doing well and desires discharge he will follow-up closely as an outpatient. By the evaluation outlined above other emergent etiologies such as those listed in the differential, as well as others, were deemed relatively unlikely. The patient was informed about the findings as listed above. All questions were answered and he was pleased with the treatment. Return instructions were outlined and the patient was discharged in stable condition. The patient was referred to his PCP for follow-up this week for a recheck of the current condition. The chart was completed utilizing [employer] Speech voice recognition software. Grammatical errors, random word insertions, pronoun errors, and incomplete sentences are an occasional consequence of this system due to software limitations, ambient noise, and hardware issues. Any formal questions or concerns about the content, text, or information contained within the body of this dictation should be directly addressed to the physician for clarification. Impression Primary Impression: Hypoglycemia Scribe Attestation The scribe's documentation has been prepared under my direction and personally reviewed by me in its entirety. I confirm that the note above accurately reflects all work, treatment, procedures, and medical decision making performed by me. Departure Information Dispostion Home / Self-Care Referrals Devendra Bland M.D. (PCP) Forms WORK / SCHOOL INSTRUCTIONS, HOME CARE DOCUMENTATION FORM, IMPORTANT VISIT INFORMATION Patient Instructions My [facility] [employer] Additional Instructions Continue current medications. Continue current diabetic care. Follow-up with your primary care physician in 2 to 3 days for a recheck of your current condition. Continue dialysis as scheduled. Return to the ER for worsening sugar problems, chest pain, difficulty breathing , fevers, vomiting, worsening of your condition, or as needed.
[2016-07-01] MEDS ORDERED: TRAM-10 PO (13:47)
== END 2016-06-07 22:12 | disposition home or self-care (01) ==
LOC: EDBD 17:43 → C.EDB 17:46
DX: E11.649 Type 2 diabetes mellitus with hypoglycemia without coma (principal); I12.0 Hypertensive chronic kidney disease with stage 5 chronic kidney disease or end stage renal disease; N18.6 End stage renal disease; F31.9 Bipolar disorder, unspecified; Z87.891 Personal history of nicotine dependence; E03.9 Hypothyroidism, unspecified

== ENCOUNTER 2016-07-01 10:18 | Day surgery (SDC) | payer OTHER, BC ==
[~2016-07-01] VITALS: Ht 177.8 cm; Wt 80.2 kg
--- NOTE | 2016-07-01 10:10 | History and Physical ---
History & Physical Date of Service Jul 01, 2016. 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 He denies any bleeding from this ulcer. Allergies: Coded Allergies: Codeine (Verified Allergy, Mild, QUESTIONABLE, 12/08/09) QUESTIONABLE ALLERGY Morphine (Verified Adverse Reaction, Intermediate, TREMBLING, 12/08/09) Penicillins (Verified Allergy, Unknown, PT HAS HAD MEFOXIN W/OUT A PROBLEM , 12/08/09) HAD MEFOXIN W/O PROBLEM Opioid Analgesics (Verified Adverse Reaction, Intermediate, "ALL RX PAIN MEDS CAUSE SEVERE NAUSEA", 12/08/09) Surgical/medical Hx: Hx Cardiac Surgery: No Hx Abdominal Surgery: Yes (APPY) Hx Cancer Surgery: No Hx Thoracic Surgery: No Hx Orthopedic: Yes (LEFT KNEE MENISCUS) Hx Urinary Tract Surgery: No HX Other Surgery: Yes (CATARACT/RETINOPATHY/L AND R ARM AVF) Past Medical History: Arthritis, Depression, Diabetes, Hypertension, Kidney Disease, Thyroid Disease Social Hx: Smoking Status: Current every day smoker Review of Systems: Constitutional: No chills, No diaphoresis, No fever, No malaise, No weakness, No weight gain, No weight loss, No sweats, No fatigue, No problem reported Skin: No change in color, No change in hair/nails, No dryness, No lesions, No lumps, No rash, No abnormal mole, No problem reported Eyes: No discharge, No blurred vision, No double vision, No eye pain, No tearing , No itching, No photophobia, No redness, No visual changes, No dryness, No irritation, No problem reported ENMT: No dental pain, No loss of hearing, No epistaxis, No ear discharge, No ear pain, No gum swelling, No mouth pain, No mouth swelling, No nasal congestion , No nasal pain, No rhinorrhea, No stridor, No tinnitus, No sore throat, No throat swelling, No problem reported Respiratory: No cough, No cyanosis, No LEE, No hemoptysis, No orthopnea, No PND , No short of breath, No sputum production, No stridor, No wheezing, No dyspnea , No problem reported Cardiovascular: No chest pain, No chest tightness, No chest pressure, No palpitations, No syncope, No diaphoresis, No edema, No intermittent claudication , No orthopnea, No cyanosis, No mumur, No lightheadedness, No paroxysmal nocturnal dyspnea, No problem reported Gastrointestinal: No abdominal pain, No constipation, No diarrhea, No nausea, No vomiting, No anorexia, No appetite changes, No belching, No flatulence, No food intolerance, No hematemesis, No hemorrhoids, No hematochezia, No stool changes, No heartburn, No indigestion, No dysphagia, No rectal bleeding, No problem reported Genitourinary - Male: + problem reported (renal failure) Musculoskeletal: No back pain, No gout, No joint pain, No joint swelling, No muscle pain, No muscle stiffness, No muscle weakness, No neck pain, No problem reported Psychiatric: No anxiety, No alcohol abuse, No auditory hallucinations, No depression, No drug abuse, No homicidal ideation, No mood changes, No suicidal ideation, No visual hallucinations, No problem reported Phsical Exam: Constitutional: General Apperance: heathly-appearing, well-nourished, well-developed Level of Distress: NAD Ambulation: ambulating normal Psychiatric: Mental Status: active & alert, normal mood, normal affect Orientation: oriented except where noted, to time, to place, to person Memory: recent memory normal, remote memory normal Eyes: EOM: EOMI ENMT: normal ENT inspection Neck: supple, trachea midline Lungs: Auscuitation: breath sounds normal Cardiovascular: Heart Auscultation: RRR Peripheral Pulses: Superficial Temporal Artery: normal on the left, normal on the right Carotid Pulse: normal on the left, normal on the right Radial Pulse: normal on the left, normal on the right Femoral Pulse: normal on the left, normal on the right Popliteal Pulse: absent on the left, absent on the right Posterior Tibialis Pulse: absent on the left, present on the right Dorsalis Pedis Pulse: absent on the left, absent on the right Abdomen: Inspection & Palpation: soft Extremities: Upper Right: no cyanosis, no edema, no varicosities, no palpable cord, no clubbing, no ulcers, no mottling Upper Left: no cyanosis, no edema, no varicosities, no palpable cord, no clubbing, no ulcers, no mottling, good thrill and bruit. large venous aneurysm with small ulcer overlying it. Lower Right: no cyanosis, no edema, no varicosities, no palpable cord, no clubbing, no ulcers, no mottling Lower Left: non healing ischemic ulcer left foot Neurologic: Cranial Nerves: grossly intact Sensation: grossly intact Assessment and Plan: Imp: Venous aneurysm of left forearm fistula Plan: Recommend a revision of his left forearm fistula. He understands the risks options and benefits and agrees to the procedure.
[~2016-07-01 10:18] MED LIST changes: +CLINDAMYCIN 600 MG/54 ML D5W IV SCH; +LIDO1CRE16 TOP; -LIDO1CRE24 TOP; +LSX40 PO; +SODIUM CHLORIDE 0.9% 1000ML 1,000 ML IV SCH
--- NOTE | 2016-07-01 10:42 | DIAGNOSTIC IMAGING REPORT ---
CHEST ONE VIEW PORTABLE HISTORY: Preop. COMPARISON: Chest 03/22/2016. FINDINGS: No pneumothorax. No pleural effusions. The heart remains mildly enlarged. Mild diffuse interstitial thickening most pronounced within the lung bases persist. Bibasilar densities remain unchanged. There is dextroscoliosis of the lumbar spine. IMPRESSION: 1. No change in the diffuse interstitial thickening with bibasilar densities. This could be chronic or due to a long-standing atypical pneumonitis. 2. Stable mild cardiomegaly. Electronically signed by: Vance Henriquez M.D. 07/01/2016 10:40 AM Dictated Date/Time: 07/01/2016 10:38 AM
[2016-07-01 10:45] VITALS: BP 94/64; PULSE 79; TEMP 36.8; O2SAT 92; Ht 177.8 cm; Wt 80.2 kg
[2016-07-01 11:11] LABS: PARTIAL THROMBOPLASTIN RATIO 1.3
[2016-07-01 11:51] LABS: CREATININE 4.8 mg/dl (0.60-1.40); POTASSIUM 3.3 mmol/L (3.5-5.1)
[2016-07-01] MEDS ORDERED: ONDANSETRON INJ 2 MG/ML 2 ML VIAL IV PRN (12:00)
[2016-07-01] MEDS ORDERED: FENTANYL CITRATE INJ 50 MCG/1 ML 2 ML VIAL IV PRN (12:00)
[2016-07-01] MEDS ORDERED: FLUMAZENIL 0.1 MG/1 ML 10 ML VIAL IV PRN (12:00)
[2016-07-01] MEDS ORDERED: EpHEDrine SULFATE INJ 50 MG/ML AMP IV PRN (12:00)
[2016-07-01] MEDS ORDERED: NALOXONE HCL 0.4 MG/1 ML VIAL/CARP IV PRN (12:00)
[2016-07-01] MEDS ORDERED: LABETALOL HCL IV 5 MG/ML 20ML IV PRN (12:00)
[2016-07-01] MEDS ORDERED: MEPERIDINE HCL 25 MG/ML CARP IV PRN (12:00)
[2016-07-01] MEDS ORDERED: ATROPINE SULFATE 0.1 MG/ML 5ML SYR IV PRN (12:00)
[2016-07-01] MEDS ORDERED: THROMBIN FOR SOLN 20000 UNIT KIT ONE (12:12)
[2016-07-01] MEDS ORDERED: BUPIVACAINE/EPINEPHRINE 0.5% MPF 1:200,000 30 ML VIAL ONE (12:12)
[2016-07-01] MEDS ORDERED: LIDOCAINE HCL 1% 20 ML VIAL ONE (12:12)
[2016-07-01] MEDS ORDERED: GELATIN SPONGE 12-7MM ONE (12:12)
[2016-07-01] MEDS ORDERED: HEPARIN SOD (PORCINE) 1000 UNIT/ML 10 ML VIAL ONE ×2 (12:13→13:55)
[2016-07-01] MEDS ORDERED: FENTANYL CITRATE INJ 50 MCG/1 ML 2 ML VIAL ONE (12:29)
[2016-07-01] MEDS ORDERED: MIDAZOLAM HCL 1 MG/ML 2ML VIAL ONE ×2 (12:29→12:32)
[2016-07-01] MEDS ORDERED: KETAMINE HCL INJ 50 MG/ML 10 ML VIAL ONE (12:55)
[2016-07-01] MEDS ORDERED: TRAM-10 PO (13:47)
--- NOTE | 2016-07-01 13:50 | [facility] Post Operative Brief Note ---
Immediate Operative Summary Operative Date Jul 01, 2016. Pre-Operative Diagnosis Malfunctioning Left Forearm Arteriovenous Fistula Post-Operative Diagnosis Malfunctioning Left Forearm Arteriovenous Fistula Procedure(s) Performed Revision Left Forearm Arteriovenous Fistula with Venorrhaphy Surgeon Dr. Noah Thomas Art Studio Teacher Surgeon(s) Martha Rea MD PGY 4 Estimated Blood Loss 50mL Findings good thrill Specimens none, Per Surgeon Anesthesia MAC Complication(s) None Disposition Recovery Room / PACU
--- NOTE | 2016-07-01 13:53 | Discharge Instructions ---
Discharge Instructions Date of Service Jul 01, 2016. Visit Reason for Visit: Venous Aneurysm Left Arm Arteriovenous Fistula Discharge Discharge Diagnosis / Problem: Venous aneurysm with ulceration Discharge Goals Goal(s): Therapeutic intervention Activity Recommendations Activity Limitations: per Instructions/Follow-up section Anesthesia . Post Anesthesia Instructions: If you have had General Anesthesia or IV Sedation: * Do not drive today. * Resume driving when surgeon permits. * Do not make important decisions or sign legal documents today. * Call surgeon for: 1. Temperature elevations greater than 101 degrees F. 2. Uncontrollable pain. 3. Excessive bleeding. 4. Persistent nausea and vomiting. 5. Medication intolerance (nausea, vomiting or rash). * For nausea and vomiting use only clear liquids such as: tea, soda, bouillon until nausea subsides, then gradually increase diet as tolerated. * If you have any concerns or questions, call your surgeon's office. If physician is unavailable and it is an emergency, call 911 or go to the nearest emergency room. . Instructions / Follow-Up Instructions / Follow-Up ACTIVITY RECOMMENDATIONS: See Above SPECIAL CARE INSTRUCTIONS: Call your doctor if: * Temperature above 101 degrees * Pain not relieved by pain medicine ordered * There is increased drainage or redness from any incision * You have any unanswered questions or concerns. Diet Recommendations Recommended Home Diet: resume previous diet Procedures Procedures Performed: Revision Left Forearm Arteriovenous Fistula with Venorrhaphy Pending Studies Studies pending at discharge: no Medical Emergencies . Who to Call and When: Medical Emergencies: If at any time you feel your situation is an emergency, please call 911 immediately. . Non-Emergent Contact Non-Emergency issues call your: Surgeon . . "Provider Documentation" section prepared by Noah Thomas. [place] Drug Monitoring Program Search Results: patient reviewed within database, no issues identified
[2016-07-01] MEDS ORDERED: LIDOCAINE HCL 2% 2 ML VIAL (20MG/ML) ONE (13:55)
[2016-07-01] MEDS ORDERED: PROPOFOL IV EMULSION 10 MG/ML 20 ML VIAL IV ONE (13:55)
[2016-07-01] MEDS ORDERED: ONDANSETRON INJ 2 MG/ML 2 ML VIAL ONE (13:55)
[2016-07-01] MEDS ORDERED: PHENYLEPHRINE 100MCG/ML 5ML SYR ONE (13:55)
--- NOTE | 2016-07-01 14:09 | Medical Student: [facility] ---
Immediate Operative Summary Operative Date Jul 01, 2016. Pre-Operative Diagnosis Malfunctioning left forearm AV fistula Post-Operative Diagnosis same Procedure(s) Performed Revision of left forearm AV fistula with venorrhaphy Surgeon Dr. Thomas Garment Fitter Surgeon(s) Dr. Rea Estimated Blood Loss 50cc Findings Left forearm AV fistula w overlying scab. Palpable thrill over left forearm AV fistula post-op. Specimens none Anesthesia general Complication(s) None Disposition Recovery Room / PACU
[2016-07-01] MEDS: PHENYLEPHRINE 100MCG/ML 5ML SYR IV PRN ×2 (14:24→14:30)
--- NOTE | 2016-07-01 14:35 | OPERATIVE REPORT ---
DATE OF OPERATION: 07/01/2016 PREOPERATIVE DIAGNOSIS: Ulcerated venous aneurysm in his left forearm arteriovenous fistula. POSTOPERATIVE DIAGNOSIS: Same. PROCEDURE: Revision of left forearm AV fistula with venography. SURGEON: Dr. Noah Thomas. DYE TUB OPERATOR: Dr. Martha Rea. ANESTHESIA: Local plus conscious sedation. FLUIDS: 400 mL. URINE OUTPUT: Not recorded. ESTIMATED BLOOD LOSS: 50 mL. COMPLICATIONS: None apparent. CONDITION: Stable to PACU. INDICATIONS: Mr. Gino Clark is a 50-year-old gentleman who has end-stage renal disease and insulin-dependent diabetes mellitus who has Tuesday, and Tuesday hemodialysis via a left forearm AV fistula. He states he has had this fistula placed for approximately 10 years. He has 2 aneurysmal portions of this fistula and he said that starting last Tuesday he developed an ulcer on the more distal aneurysm. Due to this he was told he needed urgent revision to decrease the risk of bleeding. He agreed to undergo the procedure. PROCEDURE: The patient was brought into the operative suite. He was prepped and draped in the usual fashion. A timeout occurred. Incision was made over the distal aneurysm in an ellipse that encompassed the ulceration. This was deepened through the dermis. Aneurysm was identified and dissected circumferentially. The fistula was dissected proximally and distally to have an area of clamp site; 3000 of heparin was instilled. DeBakey clamps were placed proximally and distally. The ellipse of ulceration and the portion of the aneurysm were resected out. The aneurysm was then repaired primarily. Then a venography was performed and the fistula was repaired primarily. Hemostasis was obtained and the incision was then closed with a running 3-0 and 4-0 Vicryl and Dermabond was applied. The patient was then transported to the PACU in stable condition. Dr. Noah Thomas was present and scrubbed for the entirety of this case. I attest to the content of the Intraoperative Record and any orders documented therein. Any exceptions are noted below. I, Dr. Thomas was present and scurbbed for the entire procedure. [facility]
--- NOTE | 2016-07-01 14:47 | Anesthesiology Progress Note ---
Anesthesia Post Op Note Date & Time Jul 01, 2016 at 14:47 Vital Signs Pain Intensity: 0 Vital Signs Past 12 Hours Date Time Temp Pulse Resp B/P Pulse Ox O2 Delivery O2 Flow Rate FiO2 07/01/16 14:40 36.3 68 16 101/69 96 Room Air 07/01/16 14:30 69 16 117/73 97 Room Air 07/01/16 14:20 68 16 95/65 95 Room Air 07/01/16 14:10 60 16 83/53 100 Mask 10 07/01/16 14:04 36.6 61 16 76/53 100 Mask 10 07/01/16 10:45 36.8 79 20 94/64 92 Room Air Notes Mental Status: alert / awake / arousable, participated in evaluation Pt Amnestic to Procedure: Yes Nausea / Vomiting: adequately controlled Pain: adequately controlled Airway Patency, RR, SpO2: stable & adequate BP & HR: stable & adequate Hydration State: stable & adequate Anesthetic Complications: no major complications apparent The patient is awake and at his baseline.
[2016-07-01 14:55] VITALS: BP 94/64; PULSE 69; TEMP 36.6; O2SAT 94
[2016-07-01 15:25] VITALS: BP 103/61; PULSE 67; TEMP 36.5; O2SAT 96
[2016-07-01 16:00] VITALS: BP 93/67; PULSE 63; O2SAT 96
[2017-02-21] MEDS ORDERED: AZIT-57 PO (11:04)
[2017-02-21] MEDS ORDERED: GFNSR600 PO (11:04)
== END 2016-07-01 17:45 | disposition home or self-care (01) ==
LOC: C.ACU 10:18
PROVIDERS: ATTEND Surgery Vascular Surgery
DX: T82.590A Other mechanical complication of surgically created arteriovenous fistula, initial encounter (principal); F17.210 Nicotine dependence, cigarettes, uncomplicated; Z79.899 Other long term (current) drug therapy; X58.XXXA Exposure to other specified factors, initial encounter

== ENCOUNTER → 2016-07-26 | Outpatient (CLI) | payer OTHER, BC ==
[~2016-07-26] MED LIST changes: +AZIT-57 PO; +BUPR200T2 PO; -CLINDAMYCIN 600 MG/54 ML D5W IV SCH; +GFNSR600 PO; +LSX80 PO; -SODIUM CHLORIDE 0.9% 1000ML 1,000 ML IV SCH; +TRAM-10 PO
[2016-07-26 16:42] LABS: C-REACTIVE PROTEIN 1.41 mg/dl (0-0.29); RHEUMATOID FACTOR 11.9 U/mL (0-15)
[2016-07-30 07:07] LABS: ANTI-CENTROMERE AB <1.0 NEG AI (<1.0 NEG); ANTI-SS-A <1.0 NEG AI (<1.0 NEG); ANTI-SS-B <1.0 NEG AI (<1.0 NEG); DNA ds CRITHIDIA NEGATIVE (NEGATIVE); JO-1 ANTIBODY TC 5810X <1.0 NEG AI (<1.0 NEG); MYELOPEROXIDASE AB <1.0 AI (<1.0); Sm Antibody <1.0 NEG AI (<1.0 NEG)
== END | disposition home or self-care (01) ==
LOC: C.LAB1850 14:58
PROVIDERS: ATTEND Internal Medicine Rheumatology
DX: J39.8 Other specified diseases of upper respiratory tract (principal); J84.9 Interstitial pulmonary disease, unspecified

== ENCOUNTER 2016-07-29 03:22 | Emergency (ER) | payer OTHER, BC ==
[~2016-07-29] VITALS: Ht 182.9 cm; Wt 99.3 kg
[~2016-07-29 03:22] MED LIST changes: -AZIT-57 PO; -BUPR200T2 PO; -GFNSR600 PO; -LSX80 PO
[2016-07-29 03:30] VITALS: Ht 182.9 cm; Wt 99.3 kg
[2016-07-29] MEDS ORDERED: GLUCAGON FOR INJ 1 MG VIAL ONE (03:35)
[2016-07-29] MEDS ORDERED: GLUCOSE 40% GEL 15 GM TUBE PO STA (03:49)
--- NOTE | 2016-07-29 04:02 | EMERGENCY ROOM VISIT NOTE ---
History First contact with patient: 03:23 Chief Complaint: HYPOGLYCEMIA Stated Complaint: HYPOGLYCEMIA Nursing Triage Summary: Pt doesn't think he took evening medicine. He went to bed planning on getting awake about 0100 to take meds. Slept until 3 and blood sugar is low. History of Present Illness The patient is a 50 year old male who presents to the Emergency Room with complaints of hypoglycemic episode is now resolved. Patient states this is a recurrent episode for him. He was out of his dextrose at home. Patient states his sugar dropped and he struck as well as pelvic 911. He was given IM and Dextrose by Mouth. Patient States He Had No More Dextrose in His House. Patient states he feels back to baseline own like to leave. He has dialysis at 8:30 this morning and is requesting to be able to attend this. Patient states is no current complaints and is requesting to leave. Patient denies chest pain , dyspnea, fever, chills, cough, congestion or any other medical complaints. Patient states he thought he took the extra amount of insulin today as he did have a Mountain Dew but is not sure if he took the exact dose. Review of Systems See HPI for pertinent positives & negatives. A total of 10 systems reviewed and were otherwise negative. 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 (13) End-stage renal disease on hemodialysis (14) Gram-positive cocci bacteremia (15) History of diabetic ulcer of foot (16) Hyperparathyroidism due to renal insufficiency (17) Hypertension (18) Hypothyroidism (19) infected hematoma R thigh (20) Loss of sensation (21) multipel pna, sepsis (22) multipel pna, sepsis (23) Pneumonia (24) Pulmonary edema (25) Tracheomalacia (26) venous stenosis AVF Family History FH: heart disease Social History Smoking Status: Former Smoker Alcohol Use: none Drug Use: none Marital Status: Housing Status: lives with family Occupation Status: disabled Current/Historical Medications Scheduled Amlodipine Besylate (Norvasc), 2.5 MG PO 4XWK Atorvastatin (Atorvastatin Calcium), 40 MG PO DAILY Bupropion HCl (Bupropion HCl Sr), 150 MG PO DAILY Cinacalcet (Sensipar), 30 MG PO DAILY Clopidogrel Bisulfate (Clopidogrel), 75 MG PO Q2D Fluticasone Furoate-Vilanterol (Breo Ellipta 200-25 Mcg/INH), 1 PUFF INH DAILY Furosemide (Furosemide), 80 MG PO BID Gabapentin (Gabapentin), 100 MG PO BID Insulin Aspart (novoLOG INSULIN PUMP ), 1 EA N/A UD Levothyroxine Sodium (Levothyroxine Sodium), 112 MCG PO DAILY Lidocaine-Prilocaine (Lidocaine/Prilocaine), 1 APPLN TOP UD Metoprolol Tartrate (Lopressor) (Lopressor), 50 MG PO BID Sevelamer Carbonate (Renvela), 1,600 MG PO TIDM Sevelamer Carbonate (Renvela), 800 MG PO DAILY Umeclidinium [place] (Incruse Ellipta), 1 PUFF INH DAILY Scheduled PRN Tramadol (Ultram), 50 MG PO Q4H PRN for Pain Allergies Coded Allergies: Tigecycline (Verified Allergy, Mild, ?RASH, 07/01/16) Penicillins (Verified Allergy, Unknown, PT HAS HAD MEFOXIN W/OUT A PROBLEM , 07/01/16) HAD MEFOXIN W/O PROBLEM Ciprofloxacin (Verified Adverse Reaction, Intermediate, nausea,vomiting, generalized weakness, 07/01/16) Morphine (Verified Adverse Reaction, Intermediate, TREMBLING,NAUSEA AND VOMITING, 07/01/16) Opioid Analgesics (Verified Adverse Reaction, Intermediate, "ALL RX PAIN MEDS CAUSE SEVERE NAUSEA", 07/01/16) Codeine (Verified Adverse Reaction, Mild, NAUSEA AND VOMITING, 07/01/16) QUESTIONABLE ALLERGY Levofloxacin (Verified Adverse Reaction, Mild, Cipro/Levaquin (IV & po) = N & V, 07/01/16) Oxycodone (Verified Adverse Reaction, Unknown, N/V/D, 07/01/16) SPOKE WITH PATIENT ON 07/29/15, DOES NOT REMEMBER ANY DIFFICULTY BREATHING JUST HIT HIM HARD. Physical Exam Vital Signs Date Time Temp Pulse Resp B/P Pulse Ox O2 Delivery O2 Flow Rate FiO2 07/29/16 03:30 36.6 85 16 115/69 88 Room Air 07/29/16 03:30 94 Room Air 07/29/16 03:27 85 Physical Exam VITALS: Vitals are noted on the nurse's note and reviewed by myself. Vital signs stable. GENERAL: Pleasant male answering questions appropriately, in no acute distress, nondiaphoretic, well-developed well-nourished. SKIN: The skin was without rashes, erythema, edema, or bruising. There is no tenting of the skin. Capillary reflex less than 2 seconds. HEAD: Normocephalic atraumatic. EARS: External auditory canals clear, tympanic membranes pearly ozuna without erythema or effusion bilaterally. EYES: Pupils equal round and reactive to light and accommodation. Conjunctivae without injection, sclerae without icterus. Extraocular movements intact. NOSE: Patent, turbinates without inflammation or discharge. MOUTH: Mucous membranes moist. Pharynx without erythema or exudate. Uvula midline. Airway patent. Tongue does not deviate. NECK: Supple without nuchal rigidity. No lymphadenopathy. No thyromegaly. Cervical spine is nontender. No JVD. HEART: Regular rate and rhythm without murmurs gallops or rubs. LUNGS: Clear to auscultation bilaterally without wheezes, rales or rhonchi. No dullness to percussion. No retractions or accessory muscle use. ABDOMEN: Positive bowel sounds x 4. Normal tympanic percussion. Soft, nontender, without masses or organomegaly. Trujillo sign negative. No guarding or rebound tenderness. MUSCULOSKELETAL: No muscle atrophy, erythema, or edema noted. NEURO: Patient was alert and oriented to person place and time. Normal sensation to light and sharp touch. No focal neurological deficits. Medical Decision & Procedures ED Course Prior records/ancillary studies reviewed and summarized above. Nursing notes reviewed. Additional history obtained from EMS The patient's history was concerning for hypoglycemia. Differential diagnosis: Etiologies such as metabolic, infection, hypo/hyperglycemia, electrolyte abnormalities, cardiac sources, intracerebral event, toxicologic, neurologic, as well as others were entertained. Physical examination: As above. ER treatment provided: By mouth fluids On reassessment the patient felt better. Diagnostics interpretation by me: The labs revealed glucose 101 and repeat blood sugar was stable Exam and history seem consistent with recurrent hypoglycemic episode. Patient might have accidentally taken too much insulin when he was compensating for his Mountain Dew that he drank. His blood sugars are stable here. He questioned to leave and I felt this is reasonable. He was given dextrose to go home with as he was out at home. He does have dialysis in a few hours. He was advised to attend this. Patient had no medical complaints and was back to baseline per patient. He did not want further workup and I felt this is regional. Patient is well-known to this ER for frequent hypoglycemic episodes and refusal's.By the evaluation outlined above emergent etiologies such as infection, electrolyte abnormalities, cardiac sources, intracerebral event, toxologic, neurologic, metabolic, as well as others were deemed relatively unlikely. The pt informed about the findings as listed above. All questions were answered and pleased with the treatment. Return instructions were outlined and the patient was discharged in stable condition. Outpatient prescription management: Dextrose Referral: The patient was referred back to primary care physician for follow-up in 2 to 3 days for a recheck of the current condition. Medical Decision As above Impression Primary Impression: Hypoglycemia Departure Information Dispostion Home / Self-Care Condition GOOD Referrals Devendra Bland M.D. (PCP) Patient Instructions My [email or web address] Additional Instructions Monitor your blood sugar frequently. Take your medications as directed. Go to dialysis as scheduled today. Follow-up family care or endocrinology in 1-2 days. Return to ER sooner for chest pain, difficulty breathing, problems with your blood sugar, worsening signs or symptoms or as needed.
[2016-07-29 04:14] VITALS: BP 115/69; PULSE 85; TEMP 36.6; O2SAT 94
[2017-02-21] MEDS ORDERED: AZIT-57 PO (11:04)
[2017-02-21] MEDS ORDERED: GFNSR600 PO (11:04)
== END 2016-07-29 04:16 | disposition home or self-care (01) ==
LOC: EDBD 03:22 → C.EDB 03:23
DX: E10.649 Type 1 diabetes mellitus with hypoglycemia without coma (principal); E10.22 Type 1 diabetes mellitus with diabetic chronic kidney disease; N18.6 End stage renal disease; I12.0 Hypertensive chronic kidney disease with stage 5 chronic kidney disease or end stage renal disease; E10.40 Type 1 diabetes mellitus with diabetic neuropathy, unspecified; D64.9 Anemia, unspecified; F31.9 Bipolar disorder, unspecified; J44.9 Chronic obstructive pulmonary disease, unspecified; N25.81 Secondary hyperparathyroidism of renal origin; E03.9 Hypothyroidism, unspecified; J39.8 Other specified diseases of upper respiratory tract; Z99.2 Dependence on renal dialysis; Z79.4 Long term (current) use of insulin; Z87.891 Personal history of nicotine dependence

== ENCOUNTER → 2016-08-06 | Outpatient (CLI) | payer OTHER, BC ==
[~2016-08-06] MED LIST changes: +AZIT-57 PO; +BUPR200T2 PO; +GFNSR600 PO; +LSX80 PO
--- NOTE | 2016-08-06 10:17 | DIAGNOSTIC IMAGING REPORT ---
RIGHT HAND MIN 3 VIEWS ROUTINE CLINICAL HISTORY: INTERSTITIAL LUNG DISEASE, TRACHEOMALACIA Right pain COMPARISON: None. DISCUSSION: Mild degenerative change of the interphalangeal joints throughout. Soft tissue vascular calcification. Several marginal erosions. No significant periarticular osteopenia. There is no evidence for soft tissue swelling. IMPRESSION: Moderate degenerative change including scattered periarticular and subchondral cysts. No significant osteopenia or periarticular osteopenia.. Electronically signed by: Clive Reilly M.D. 08/06/2016 10:15 AM Dictated Date/Time: 08/06/2016 10:14 AM
--- NOTE | 2016-08-06 10:23 | DIAGNOSTIC IMAGING REPORT ---
LEFT HAND MIN 3 VIEWS ROUTINE CLINICAL HISTORY: INTERSTITIAL LUNG DISEASE, TRACHEOMALACIA COMPARISON: None. DISCUSSION: Mild degenerative change of the interphalangeal joints. Several marginal erosions in the absence of articular osteopenia. Soft tissue vascular calcifications. There is no evidence for soft tissue swelling. IMPRESSION: Mild degenerative change. Electronically signed by: Clive Reilly M.D. 08/06/2016 10:22 AM Dictated Date/Time: 08/06/2016 10:16 AM
== END | disposition home or self-care (01) ==
LOC: C.RAD1850 09:53
PROVIDERS: ATTEND Internal Medicine Rheumatology
DX: J84.9 Interstitial pulmonary disease, unspecified (principal); J39.8 Other specified diseases of upper respiratory tract

== ENCOUNTER 2016-08-31 01:55 | Emergency (ER) | payer OTHER, BC ==
[~2016-08-31] VITALS: Ht 177.8 cm; Wt 88.4 kg
[~2016-08-31 01:55] MED LIST changes: -AZIT-57 PO; -BUPR200T2 PO; -GFNSR600 PO; -LSX80 PO
[2016-08-31 02:18] VITALS: TEMP 36.5; Ht 177.8 cm; Wt 88.4 kg
[2016-08-31] MEDS: LIDOCAINE/EPINEPH/TETRACAINE 1 EA SYR EXT STA ×2 (02:30→03:04)
[2016-08-31] MEDS ORDERED: LIDO/EPINEPHRINE/SOD BICARB 20 ML VIAL INFIL ONE (03:06)
[2016-08-31] MEDS ORDERED: LIDOCAINE/EPINEPHRINE 1% 20 ML VIAL INFIL ONE (03:15)
[2016-08-31 03:47] LABS: HEMATOCRIT 42.7 % (42-52); MEAN CELL VOLUME 101.2 fL (80-100); MEAN CORPUSCULAR HEMOGLOBIN 32.9 pg (25-34); MEAN CORPUSCULAR HGB CONC 32.6 g/dl (32-36); MEAN PLATELET VOLUME 9.4 fL (7.4-10.4); PLATELET COUNT 251 K/uL (130-400); RED BLOOD COUNT 4.22 M/uL (4.7-6.1); WHITE BLOOD COUNT 26.22 K/uL (4.8-10.8)
[2016-08-31] MEDS ORDERED: LSX80 PO (04:01)
[2016-08-31 04:03] LABS: BASO % 0.3 %; BASO ABS # 0.07 K/uL (0-0.2); COMPLETE YES; EOS % 0.5 %; IG% 0.4 %; LYMPH ABS # 1.06 K/uL (1.2-3.4); MONO % 6.2 %; NEUT % 88.6 %
[2016-08-31 04:19] LABS: BUN/CREATININE RATIO 4.9 (10-20); CALCIUM 8.8 mg/dl (8.5-10.1); POTASSIUM 3.6 mmol/L (3.5-5.1)
--- NOTE | 2016-08-31 04:41 | EMERGENCY ROOM VISIT NOTE ---
ED Visit Note First contact with patient: 02:02 I have personally evaluated and examined this patient. I agree with assessment and plan of Mary Sloan PA-C. 50 yr old chronically unwell patient well known to us arrives for evaluation of hypoglycemia. Aware, alert, eating food without complaint. Head injury negative for bleed. Elevated WBC though without symptoms of infection nor fever. Denies cough, shob, fevers, chills, abdominal pain. Feels fine and comfortable with discharge.
--- NOTE | 2016-08-31 04:55 | EMERGENCY ROOM VISIT NOTE ---
History First contact with patient: 02:02 Chief Complaint: HYPOGLYCEMIA Stated Complaint: HYPOGLYCEMIA Nursing Triage Summary: Pt was found unresponsive from hitting his head on table at home. Pt's BSG on scene was 30. Pt has laceration to middle forehead. Insulin pump turned off by EMS. History of Present Illness The patient is a 50 year old male who presents to the Emergency Room with complaints of hypoglycemic event. Patient has a recurrent problem with this. He is well-known to this ER for frequent hypoglycemic events and also to EMS for this. Patient states he's been eating and drinking normally. He's been taking his insulin as directed. Patient states he passed out and hit his head. EMS gave him glucagon IM. Blood sugar now is 94. On scene was 30. Patient plans of a mild 2 out of 10 headache. He states his tetanus is current. He has a laceration to his forehead. Patient denies neck pain, facial pain, dental pain, chest pain, dyspnea, abdominal pain, numbness, tingling, vision problems, fever, chills, cold symptoms. He is tolerating by mouth fluids and food. No other complains per patient. Patient states he has a history of a high white count. Review of Systems See HPI for pertinent positives & negatives. A total of 10 systems reviewed and were otherwise negative. 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 (13) End-stage renal disease on hemodialysis (14) Gram-positive cocci bacteremia (15) History of diabetic ulcer of foot (16) Hyperparathyroidism due to renal insufficiency (17) Hypertension (18) Hypothyroidism (19) infected hematoma R thigh (20) Loss of sensation (21) multipel pna, sepsis (22) multipel pna, sepsis (23) Pneumonia (24) Pulmonary edema (25) Tracheomalacia (26) venous stenosis AVF Family History FH: heart disease Social History Smoking Status: Former Smoker Alcohol Use: none Drug Use: none Marital Status: Housing Status: lives with family Occupation Status: disabled Current/Historical Medications Scheduled Amlodipine Besylate (Norvasc), 2.5 MG PO 4XWK Atorvastatin (Atorvastatin Calcium), 40 MG PO DAILY Bupropion HCl (Bupropion HCl Sr), 150 MG PO DAILY Cinacalcet (Sensipar), 30 MG PO DAILY Clopidogrel Bisulfate (Clopidogrel), 75 MG PO Q2D Fluticasone Furoate-Vilanterol (Breo Ellipta 200-25 Mcg/INH), 1 PUFF INH DAILY Furosemide (Furosemide), 80 MG PO BID Gabapentin (Gabapentin), 100 MG PO BID Insulin Aspart (novoLOG INSULIN PUMP ), 1 EA N/A UD Levothyroxine Sodium (Levothyroxine Sodium), 112 MCG PO DAILY Lidocaine-Prilocaine (Lidocaine/Prilocaine), 1 APPLN TOP UD Metoprolol Tartrate (Lopressor) (Lopressor), 50 MG PO BID Sevelamer Carbonate (Renvela), 1,600 MG PO TIDM Sevelamer Carbonate (Renvela), 800 MG PO DAILY Umeclidinium [place] (Incruse Ellipta), 1 PUFF INH DAILY Scheduled PRN Tramadol (Ultram), 50 MG PO Q4H PRN for Pain Allergies Coded Allergies: Tigecycline (Verified Allergy, Mild, ?RASH, 08/31/16) Penicillins (Verified Allergy, Unknown, PT HAS HAD MEFOXIN W/OUT A PROBLEM , 08/31/16) HAD MEFOXIN W/O PROBLEM Ciprofloxacin (Verified Adverse Reaction, Intermediate, nausea,vomiting, generalized weakness, 08/31/16) Morphine (Verified Adverse Reaction, Intermediate, TREMBLING,NAUSEA AND VOMITING, 08/31/16) Opioid Analgesics (Verified Adverse Reaction, Intermediate, "ALL RX PAIN MEDS CAUSE SEVERE NAUSEA", 08/31/16) Codeine (Verified Adverse Reaction, Mild, NAUSEA AND VOMITING, 08/31/16) QUESTIONABLE ALLERGY Levofloxacin (Verified Adverse Reaction, Mild, Cipro/Levaquin (IV & po) = N & V, 08/31/16) Oxycodone (Verified Adverse Reaction, Unknown, N/V/D, 08/31/16) SPOKE WITH PATIENT ON 07/29/15, DOES NOT REMEMBER ANY DIFFICULTY BREATHING JUST HIT HIM HARD. Physical Exam Vital Signs Date Time Temp Pulse Resp B/P (MAP) Pulse Ox O2 Delivery O2 Flow Rate FiO2 08/31/16 03:56 77 18 155/92 94 Room Air 08/31/16 02:18 36.5 71 18 152/95 94 Room Air Physical Exam PHYSICAL EXAM: VITALS: Vitals are noted on the nurse's note and reviewed by myself. Vital signs stable. GENERAL: Pleasant male, in no acute distress, nondiaphoretic, well-developed well-nourished. SKIN: 3 cm forehead laceration with contusion that is gaping and appears clean The rest of the skin was without obvious lacerations or abrasions. Capillary reflex less than 2 seconds. HEAD: Normocephalic EARS: External auditory canals clear, tympanic membranes pearly ozuna without erythema or effusion bilaterally. No hemotympanums. No winston sign. No mastoid tenderness. EYES: Pupils equal round and reactive to light and accommodation. Conjunctivae without injection, sclerae without icterus. Extraocular movements intact. NOSE: Patent, turbinates without inflammation or discharge. No sinus tenderness. No septal hematoma or bleeding. FACE: No facial bone tenderness. Full range of motion of the jaw without tenderness. MOUTH: Mucous membranes moist. Pharynx without erythema or exudate. Uvula midline. Airway patent. Tongue does not deviate. NECK: Supple without nuchal rigidity. Cervical spine is nontender. Full range of motion of the neck without tenderness. No JVD. HEART: Regular rate and rhythm LUNGS: Clear to auscultation bilaterally without wheezes, rales or rhonchi. No dullness to percussion. No retractions or accessory muscle use. No chest wall tenderness. ABDOMEN: Positive bowel sounds x 4. Normal tympanic percussion. Soft, nontender, without masses or organomegaly. No guarding or rebound tenderness. MUSCULOSKELETAL: No tenderness of the thoracic or lumbar spine. Full range of motion without tenderness to palpation in all extremities. Normal gait. Strength 5/5 throughout. Peripheral pulses 2+. NEURO: Patient was alert and oriented to person place and time. Normal Mini- Mental status exam. Normal sensation to light and sharp touch. Negative Romberg and pronator drift. Cerebellar function intact. No focal neurological deficits. Medical Decision & Procedures Laboratory Results 08/31/16 03:38 Red Blood Count 4.22, Mean Corpuscular Volume 101.2, Mean Corpuscular Hemoglobin 32.9, Mean Corpuscular Hemoglobin Concent 32.6, Mean Platelet Volume 9.4, Neutrophils (%) (Auto) 88.6, Lymphocytes (%) (Auto) 4.0, Monocytes (%) ( Auto) 6.2, Eosinophils (%) (Auto) 0.5, Basophils (%) (Auto) 0.3, Neutrophils # ( Auto) 23.24, Lymphocytes # (Auto) 1.06, Monocytes # (Auto) 1.62, Eosinophils # ( Auto) 0.12, Basophils # (Auto) 0.07 08/31/16 03:38 Test 08/31/16 03:38 08/31/16 04:40 White Blood Count 26.22 K/uL (4.8-10.8) Red Blood Count 4.22 M/uL (4.7-6.1) Hemoglobin 13.9 g/dL (14.0-18.0) Hematocrit 42.7 % (42-52) Mean Corpuscular Volume 101.2 fL (80-100) Mean Corpuscular Hemoglobin 32.9 pg (25-34) Mean Corpuscular Hemoglobin Concent 32.6 g/dl (32-36) Platelet Count 251 K/uL (130-400) Mean Platelet Volume 9.4 fL (7.4-10.4) Neutrophils (%) (Auto) 88.6 % Lymphocytes (%) (Auto) 4.0 % Monocytes (%) (Auto) 6.2 % Eosinophils (%) (Auto) 0.5 % Basophils (%) (Auto) 0.3 % Neutrophils # (Auto) 23.24 K/uL (1.4-6.5) Lymphocytes # (Auto) 1.06 K/uL (1.2-3.4) Monocytes # (Auto) 1.62 K/uL (0.11-0.59) Eosinophils # (Auto) 0.12 K/uL (0-0.5) Basophils # (Auto) 0.07 K/uL (0-0.2) RDW Standard Deviation 53.1 fL (36.4-46.3) RDW Coefficient of Variation 14.3 % (11.5-14.5) Immature Granulocyte % (Auto) 0.4 % Immature Granulocyte # (Auto) 0.11 K/uL (0.00-0.02) Anion Gap 13.0 mmol/L (3-11) Est Creatinine Clear Calc Drug Dose 9.9 ml/min Estimated GFR () 6.3 Estimated GFR (Non- 5.4 BUN/Creatinine Ratio 4.9 (10-20) Calcium Level 8.8 mg/dl (8.5-10.1) Bedside Glucose 164 mg/dl (70-99) Medications Administered Medications (Trade) Dose Ordered Sig/Etta Route Start Time Stop Time Status Last Admin Dose Admin Tetracaine/ Epinephrine/ Lidocaine (L.e.t. Gel 4%/ 1:100/0.5%) 1 ea NOW STAT EXT 08/31/16 02:06 08/31/16 02:08 DC 08/31/16 02:30 1 EA Procedure Location: Forehead Total length: 3 cm Complexity: Simple Verbal consent was obtained after the risks and benefits were explained, including but not limited to bleeding, scarring, infection, pain, and bone/joint /nerve damage. At this time, the risks of the procedure are less than the risks of NOT performing the procedure. A time out was taken and the correct patient and site identified. The skin was prepped with betadine. The target area was anesthetized with 2 ml of 1% lidocaine with epinephrine. Copious irrigation was performed using NS. The skin was re-prepped with betadine and a sterile field set. The wound was explored for foreign bodies and none found. Examination revealed no injury to deep structures such as tendons, bone, or significant blood vessels. Debridement was not performed. The wound edges were approximated using 5, 6-0 simple interrupted nylon sutures. Hemostasis and excellent approximation was achieved. Antibacterial ointment and a sterile dressing applied. Detailed wound care instructions and signs and symptoms of infection reviewed with the pt. No complications and the patient tolerated the procedure well. ED Course Prior records/ancillary studies reviewed. Triage Nursing notes reviewed. Additional history obtained from EMS. The patient's history was concerning for traumatic head injury and hypoglycemia Differential diagnosis: Etiologies such as hypoglycemia, overuse of insulin, infection, electrolyte abnormality, concussion, contusion, fracture, subdural hematoma, epidural hematoma, intraparenchymal hemorrhage, as well as other traumatic pathologies were entertained. Physical examination findings: As above. ER treatment provided: Laceration was repaired as above. Patient was given peanut butter and crackers and orange juice On reassessment the patient felt better. Diagnostics interpreted by me: The labs revealed leukocytosis, most likely stress reaction. Patient had a leukocytosis before. He is advised follow-up family care for this. No signs of sepsis or infection on exam. He had no other complaints. He felt better and requested to leave. Creatinines 10. Patient is a dialysis patient. He is due for dialysis today at 8:30 AM. He states this is weekend off. This is day #3 without dialysis. He dialyzes Tuesday and Tuesday Imaging studies: Head CT was negative for intracranial bleed per radiology It appears the patient has a hypoglycemic event which resulted in a head injury with forehead laceration. The patient did have a leukocytosis. He states he knows he has a leukocytosis. He is well aware this. He is advised to see family care for further workup for this. No signs of infection. Patient has had multiple hypoglycemic events and takes too much of his insulin. He is well- known to this ER and EMS. He is advised to follow-up with his family care doctor and ekg/ecg technician in a few days or here in the ER sooner for headache, fevers, low blood sugar, worsening signs or symptoms or as needed. By the evaluation outlined above emergent etiologies such as fracture, subdural hematoma, epidural hematoma, intraparenchymal hemorrhage, as well as others were deemed relatively unlikely. Patient was neurovascularly and neurologically intact. His blood sugar was stable. He was well-appearing. Patient states he will go to dialysis today. Patient is requesting to leave. I felt this is reasonable. He was discharged home in stable condition. The pt informed about the findings as listed above. All questions were answered and pleased with the treatment. Return instructions were outlined and the patient was discharged in stable condition. Referral: The patient was referred back to their primary care physician for follow-up in 2 to 3 days for a recheck of the current condition. Case reviewed with my attending. Medical Decision as above Impression Primary Impression: Closed head injury Additional Impressions: Hypoglycemia Forehead laceration Leukocytosis Departure Information Dispostion Home / Self-Care Condition GOOD Referrals Devendra Bland M.D. (PCP) Patient Instructions My [facility] Additional Instructions Go straight to dialysis today. Your white count as high today. Recheck this with the family care doctor. Closely monitor your blood sugars. Eat regular meals. Keep wound clean and dry. Do not allow any crusting or dried blood to accumulate on sutures. If this occurs, use a 1:1 solution of hydrogen peroxide/ water on a Q-tip to clean the wound. Use an antibiotic ointment for 3-4 days, then let wound dry. Suture removal in 5-7 days. Return sooner for any signs of infection (increasing redness, swelling, drainage). Ice and elevate for swelling and pain. Keep covered when in sun until sutures removed then SPF 50 or higher for one year. Vitamin E oil if desired two weeks after suture removal for reduction of scar Read head injury handout and return for any symptoms. Tylenol 1000 mg as needed for pain (Maximum 3000 mg Tylenol in 24 hr period). Avoid alcohol and contact sports/activities for one week and follow up with family doctor prior to returning to these activities if still symptomatic. Ice and elevate head. If your symptoms persist more than a week then follow up with the concussion clinic. Call [phone]. Return to ER sooner for headache, fevers, confusion, worsening signs or symptoms or as needed. Follow-up family care DrJosé Manuel in one to 2 days. Problem Qualifiers Primary Impression: Closed head injury Encounter type: initial encounter Qualified Codes: S09.90XA - Unspecified injury of head, initial encounter Additional Impressions: Forehead laceration Encounter type: initial encounter Qualified Codes: S01.81XA - Laceration without foreign body of other part of head, initial encounter Leukocytosis Leukocytosis type: unspecified Qualified Codes: D72.829 - Elevated white blood cell count, unspecified
[2016-08-31 05:11] VITALS: BP 134/80; PULSE 79; O2SAT 96
--- NOTE | 2016-08-31 07:15 | DIAGNOSTIC IMAGING REPORT ---
HEAD CT NONCONTRAST CT DOSE: 537.48 mGy.cm HISTORY: Trauma head injury TECHNIQUE: Multiaxial CT images of the head were performed without the use of intravenous contrast. Comparison: None. Findings: The paranasal sinuses and mastoid air cells are clear. The calvarium and skull base are intact. The ventricles and sulci are within normal limits. There is no mass, hematoma, midline shift, or acute infarct.] Frontal extracranial soft tissue edema Impression: No acute intracranial abnormality. Prefrontal extracranial soft tissue edema Electronically signed by: Clive Reilly M.D. 08/31/2016 7:14 AM Dictated Date/Time: 08/31/2016 7:12 AM
[2017-02-21] MEDS ORDERED: AZIT-57 PO (11:04)
[2017-02-21] MEDS ORDERED: GFNSR600 PO (11:04)
== END 2016-08-31 05:18 | disposition home or self-care (01) ==
LOC: EDBD 01:55 → C.EDA 01:56
DX: S01.81XA Laceration without foreign body of other part of head, initial encounter (principal); W22.8XXA Striking against or struck by other objects, initial encounter; E10.42 Type 1 diabetes mellitus with diabetic polyneuropathy; I12.0 Hypertensive chronic kidney disease with stage 5 chronic kidney disease or end stage renal disease; N18.6 End stage renal disease; E03.9 Hypothyroidism, unspecified; J44.9 Chronic obstructive pulmonary disease, unspecified; F31.9 Bipolar disorder, unspecified; N25.81 Secondary hyperparathyroidism of renal origin; D64.9 Anemia, unspecified; Z98.890 Other specified postprocedural states; Z87.891 Personal history of nicotine dependence; Z79.4 Long term (current) use of insulin; Z79.899 Other long term (current) drug therapy; Z88.0 Allergy status to penicillin; Z88.2 Allergy status to sulfonamides; Z88.5 Allergy status to narcotic agent; Z88.8 Allergy status to other drugs, medicaments and biological substances; Z82.49 Family history of ischemic heart disease and other diseases of the circulatory system

== ENCOUNTER 2016-09-02 03:30 | Emergency (ER) | payer OTHER, BC ==
[~2016-09-02] VITALS: Ht 177.8 cm; Wt 88.3 kg
[~2016-09-02 03:30] MED LIST changes: -LSX40 PO; +LSX80 PO
[2016-09-02 03:45] VITALS: TEMP 36.4; Ht 177.8 cm; Wt 88.3 kg
--- NOTE | 2016-09-02 04:12 | EMERGENCY ROOM VISIT NOTE ---
History Report prepared by Cece: Padmini Douglas Under the Supervision of: Dr. Gretel Renae D.O. First contact with patient: 03:34 Chief Complaint: HYPOGLYCEMIA Stated Complaint: UNRESPONSIVE/DIABETIC/HYPOGLYCEMIC History of Present Illness The patient is a 50 year old male who presents to the Emergency Room via EMS with complaints of hypoglycemia occurring tonight. He fell into the litter box and hit his head. Patient's blood sugar level was 31 when EMS arrived. He was given Glucagon without relief. He was also given D10 250 cc in route by EMS which increased his blood sugar level to 78. He was evaluated in the Emergency Room 2 days go for similar symptoms because he became hypoglycemia and hit his head on the computer table. He currently denies any pain. He denies fevers, chills, or any other complaints. He has a chronic cough. He is supposed to have dialysis today. Source of History: patient, EMS Onset: tonight Position: other (global) Symptom Intensity: Initial blood sugar level of 31 Quality: other (hypoglycemia) Modifying Factors (Relieving): other (Glucagon without relief; D10 250 cc with relief) Associated Symptoms: + cough (chronic ), No fevers, No chills Review of Systems See HPI for pertinent positives & negatives. A total of 10 systems reviewed and were otherwise negative. 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 (13) End-stage renal disease on hemodialysis (14) Gram-positive cocci bacteremia (15) History of diabetic ulcer of foot (16) Hyperparathyroidism due to renal insufficiency (17) Hypertension (18) Hypothyroidism (19) infected hematoma R thigh (20) Loss of sensation (21) multipel pna, sepsis (22) multipel pna, sepsis (23) Pneumonia (24) Pulmonary edema (25) Tracheomalacia (26) venous stenosis AVF Family History FH: heart disease Social History Smoking Status: Former Smoker Alcohol Use: none Drug Use: none Marital Status: Housing Status: lives with family Occupation Status: disabled Current/Historical Medications Scheduled Amlodipine Besylate (Norvasc), 2.5 MG PO 4XWK Atorvastatin (Atorvastatin Calcium), 40 MG PO DAILY Bupropion HCl (Bupropion HCl Sr), 150 MG PO DAILY Cinacalcet (Sensipar), 30 MG PO DAILY Clopidogrel Bisulfate (Clopidogrel), 75 MG PO Q2D Fluticasone Furoate-Vilanterol (Breo Ellipta 200-25 Mcg/INH), 1 PUFF INH DAILY Furosemide (Furosemide), 80 MG PO BID Gabapentin (Gabapentin), 100 MG PO BID Insulin Aspart (novoLOG INSULIN PUMP ), 1 EA N/A UD Levothyroxine Sodium (Levothyroxine Sodium), 112 MCG PO DAILY Lidocaine-Prilocaine (Lidocaine/Prilocaine), 1 APPLN TOP UD Metoprolol Tartrate (Lopressor) (Lopressor), 50 MG PO BID Sevelamer Carbonate (Renvela), 1,600 MG PO TIDM Sevelamer Carbonate (Renvela), 800 MG PO DAILY Umeclidinium Karthaus (Incruse Ellipta), 1 PUFF INH DAILY Scheduled PRN Tramadol (Ultram), 50 MG PO Q4H PRN for Pain Allergies Coded Allergies: Tigecycline (Verified Allergy, Mild, ?RASH, 09/02/16) Penicillins (Verified Allergy, Unknown, PT HAS HAD MEFOXIN W/OUT A PROBLEM , 09/02/16) HAD MEFOXIN W/O PROBLEM Ciprofloxacin (Verified Adverse Reaction, Intermediate, nausea,vomiting, generalized weakness, 09/02/16) Morphine (Verified Adverse Reaction, Intermediate, TREMBLING,NAUSEA AND VOMITING, 09/02/16) Opioid Analgesics (Verified Adverse Reaction, Intermediate, "ALL RX PAIN MEDS CAUSE SEVERE NAUSEA", 09/02/16) Codeine (Verified Adverse Reaction, Mild, NAUSEA AND VOMITING, 09/02/16) QUESTIONABLE ALLERGY Levofloxacin (Verified Adverse Reaction, Mild, Cipro/Levaquin (IV & po) = N & V, 09/02/16) Oxycodone (Verified Adverse Reaction, Unknown, N/V/D, 09/02/16) SPOKE WITH PATIENT ON 07/29/15, DOES NOT REMEMBER ANY DIFFICULTY BREATHING JUST HIT HIM HARD. Physical Exam Vital Signs Date Time Temp Pulse Resp B/P (MAP) Pulse Ox O2 Delivery O2 Flow Rate FiO2 09/02/16 05:03 84 20 129/87 93 Room Air 09/02/16 03:45 36.4 20 161/98 Room Air Physical Exam General: Covered in cat litter. HEENT: Head - normocephalic. Midline laceration to his forehead with sutures in place. Pupils are equal, round, and reactive to light. Extraocular eye muscles are intact, and sclera are anicteric. Nose - moist nasal mucosa without discharge. Mouth - moist buccal mucosa. Oropharynx is nonerythematous and there is no tonsillar exudate or edema noted. Neck: Supple; no JVD, nuchal rigidity, cervical lymphadenopathy,. Heart: Regular rate and rhythm. There is a normal S1 and S2 with no murmurs, clicks, or gallops appreciated. Lungs: Rhonchi in all lung infante. Abdomen: Soft, completely nontender, nondistended, with good bowel sounds. There are no palpable pulsatile masses or hepatosplenomegaly. There is no guarding, rigidity, or rebound noted. Extremities: No evidence of cyanosis, clubbing, or edema. There are easily palpable peripheral pulses. New contusion over his right eye. Fistula in the left arm Skin: warm and dry with good turgor and no rashes. Medical Decision & Procedures ER Provider Diagnostic Interpretation: CT results as stated below per my review and radiologist interpretation: CT HEAD Comparison: CT head 08/31/16 No acute intracranial abnormality. No ICH, mass effect or edema. No skull fracture. Mild frontal scalp swelling, similar to prior. Radiologist: Elliott Blanchard MD X-ray results as stated below per interpretation by me: CHEST X-RAY Cardiomegaly, peribronchial cuffing, chronic interstitial findings unchanged from July 15, 2016. Laboratory Results Test 09/02/16 05:09 Bedside Glucose 183 mg/dl (70-99) Laboratory results per my review. ED Course 0334: Past medical records reviewed. The patient was evaluated in room B06. A complete history and physical exam was performed. 0351: I reviewed previous lab and radiology studies from 2 days ago. The patient went for a repeat CT scan of the brain because of the new trauma today. The patient was noted to have significant cough on physical exam and therefore went for chest x-ray which was unchanged. 0504: I reviewed CT and X-ray findings with the patient. I recommended that he not dose himself with extra insulin and only use his basal rate on insulin pump. He became angry and defensive, and refused to follow my instructions. He was discharged home. 0510: The patient's blood sugar prior to discharge was 183. Medical Decision This patient presents to the Emergency Room with the chief complaint of hypoglycemia. Differential diagnosis includes but is not limited to hypoglycemia , closed head injury, skull fracture, pneumonia. I attest that I have personally reviewed the patient's current medication list. Patient was found to have an elevated blood pressure and was referred to their primary doctor for recheck and further treatment. This is a 50-year-old male patient who is very well-known to this emergency department. He's had multiple previous episodes of hypoglycemia including one just 2 days ago. Tonight, the patient had an episode of hypoglycemia and fell face first into the cat liter. EMS arrived on scene and attempted to administer glucagon to the patient but his blood sugar did not elevate significantly. In route to the emergency department, EMS was able to obtain IV access and administered D10. This improved the patient's mental status when he arrived here in the emergency department. I spent some time talking to the patient about the hazards associated with overdosing himself on insulin and having episodes of hypoglycemia which lead to head trauma. The patient was not interested in listening to my suggestions and advice. This is been ongoing problem for this patient. It does not appear that he suffered any additional head injury with the fall tonight. Impression Primary Impression: Hypoglycemia Additional Impression: Fall Scribe Attestation The scribe's documentation has been prepared under my direction and personally reviewed by me in its entirety. I confirm that the note above accurately reflects all work, treatment, procedures, and medical decision making performed by me. Departure Information Dispostion Home / Self-Care Referrals Devendra Bland M.D. (PCP) Forms HOME CARE DOCUMENTATION FORM, IMPORTANT VISIT INFORMATION, WORK / SCHOOL INSTRUCTIONS Patient Instructions My [facility] Additional Instructions I am suggestiing that you do NOT administer additional insulin because you are causing episodes of hypoglycemia. You have traumatized your head twice in one week. You may if you become hypoglycemic and no one finds you or if you hit your head hard enough Problem Qualifiers Additional Impression: Fall Encounter type: initial encounter Qualified Codes: W19.XXXA - Unspecified fall, initial encounter
[2016-09-02 05:03] VITALS: BP 129/87; PULSE 84; O2SAT 93
--- NOTE | 2016-09-02 06:33 | DIAGNOSTIC IMAGING REPORT ---
CT HEAD WITHOUT CONTRAST (CT) CLINICAL HISTORY: Head pain status post trauma COMPARISON STUDY: 08/31/2016 TECHNIQUE: Axial CT of the brain is performed from the vertex to the skull base. IV contrast was not administered for this examination. CT DOSE: 614.27 mGy.cm FINDINGS: No intra or extra-axial mass lesions are visualized. There is no CT evidence of acute cortical infarction. There is no evidence of midline shift. There is no acute hemorrhage. No calvarial fractures are visualized. There are minimal white matter hypodensities likely on a small vessel basis. There is no evidence of pathologic ventricular dilatation. There is mild frontal scalp edema. Dense bilateral cerebellar calcifications remain similar. There is no evidence of acute sinusitis IMPRESSION: No acute intracranial findings Electronically signed by: Issac Harrell M.D. 09/02/2016 6:32 AM Dictated Date/Time: 09/02/2016 6:30 AM
--- NOTE | 2016-09-02 08:16 | DIAGNOSTIC IMAGING REPORT ---
CHEST 2 VIEWS ROUTINE CLINICAL HISTORY: severe cough COMPARISON STUDY: 07/01/2016 FINDINGS: The heart remains enlarged. There is diffuse interstitial thickening. There are bilateral lower lobe bronchiectatic changes with bronchial wall thickening. There is minor blunting of the costophrenic angle suggesting small effusions.[ There is no overt failure. There is a scoliosis. IMPRESSION: 1. Slight progression in diffuse interstitial thickening. Bilateral lower lobe bronchiectasis with bronchial wall thickening. Small pleural effusions. Electronically signed by: Issac Harrell M.D. 09/02/2016 8:15 AM Dictated Date/Time: 09/02/2016 8:14 AM
[2017-02-21] MEDS ORDERED: AZIT-57 PO (11:04)
[2017-02-21] MEDS ORDERED: GFNSR600 PO (11:04)
== END 2016-09-02 05:30 | disposition home or self-care (01) ==
LOC: EDBD 03:30 → C.EDB 03:30
DX: E10.649 Type 1 diabetes mellitus with hypoglycemia without coma (principal); I12.0 Hypertensive chronic kidney disease with stage 5 chronic kidney disease or end stage renal disease; E10.22 Type 1 diabetes mellitus with diabetic chronic kidney disease; N18.6 End stage renal disease; Z99.2 Dependence on renal dialysis; E03.9 Hypothyroidism, unspecified; J44.9 Chronic obstructive pulmonary disease, unspecified; D64.9 Anemia, unspecified; F31.9 Bipolar disorder, unspecified; Z98.890 Other specified postprocedural states; Z79.4 Long term (current) use of insulin; Z79.899 Other long term (current) drug therapy; Z88.0 Allergy status to penicillin; Z88.2 Allergy status to sulfonamides; Z88.5 Allergy status to narcotic agent; Z88.8 Allergy status to other drugs, medicaments and biological substances; Z82.49 Family history of ischemic heart disease and other diseases of the circulatory system

== ENCOUNTER → 2016-09-08 | Outpatient (CLI) | payer OTHER, BC ==
[~2016-09-08] MED LIST changes: +AZIT-57 PO; +BUPR200T2 PO; +GFNSR600 PO
--- NOTE | 2016-09-08 15:10 | ECHOCARDIOGRAM REPORT ---
*NOTICE TO RECEIVING DEMOCRAT AGENCY This information is strictly Confidential and protected under [place] law. [place] law prohibits you from making any further disclosure of this information unless further disclosure is expressly permitted by the written consent of the person to whom it pertains or is authorized by law. A general authorization for the release of medical or other information is not sufficient for this purpose. Hospital accepts no responsibility if the information is made available to any other person, INCLUDING THE PATIENT. Interpretation Summary * Name: YU HOOK Study Date: 09/08/2016 12:51 PM BP: 127/79 mmHg * Patient Location: [facility] HR: 74 * : 1965 (M/d/yyyy) Gender: Male Height: 70 in * Age: 50 yrs Ethnicity: [place] Weight: 181 lb * Ordering Physician: Lizzeth Mcclellan * Referring Physician: Lizzeth Mcclellan PA-C * Performed By: Talisha Cox RDCS * * Reason For Study: * BSA: 2.0 m2 * -- Conclusions -- * There is mild concentric left ventricular hypertrophy. * Grade I diastolic dysfunction, (abnormal relaxation pattern). * There are regional wall motion abnormalities as specified. * Moderate valvular aortic stenosis. * There is moderate mitral annular calcification. * There is mild mitral stenosis. * Left ventricular systolic function is low normal. * Compared to a study from 2016, there has been no progression in the degree of aortic stenosis. * The systolic function is not as vigorous as the prior study and there appears to be an inferior wall motion abnormalitiy. Procedure Details * A complete two-dimensional transthoracic echocardiogram was performed (2D, M-mode, Doppler and color flow Doppler). Left Ventricle * The left ventricle is grossly normal size. * There is mild concentric left ventricular hypertrophy. * Ejection Fraction = 50-55%. * Grade I diastolic dysfunction, (abnormal relaxation pattern). * Left ventricular systolic function is low normal. * There are regional wall motion abnormalities as specified. * Inferior wall from base to mid-ventricle is hypokinetic Right Ventricle * The right ventricle is not well visualized. Atria * The left atrial size is normal. * Right atrium not well visualized. Mitral Valve * There is moderate mitral annular calcification. * The mitral valve leaflets appear thickened, but open well. * There is mild mitral stenosis. * There is no mitral regurgitation noted. Tricuspid Valve * The tricuspid valve is not well visualized, but is grossly normal. Aortic Valve * Moderate valvular aortic stenosis. Pericardium/Pleural * There is no pericardial effusion. MMode 2D Measurements and Calculations IVSd 1.6 cm IVSs 2.0 cm LVIDd 4.5 cm LVIDs 3.4 cm LVPWd 1.2 cm LVPWs 1.6 cm IVS/LVPW 1.3 FS 24.2 % EDV(Teich) 94.8 ml ESV(Teich) 49.0 ml EF(Teich) 48.3 % EDV(cubed) 94.1 ml ESV(cubed) 40.9 ml EF(cubed) 56.5 % % IVS thick 25.8 % % LVPW thick 28.7 % LV mass(C)d 256.7 grams LV mass(C)dI 128.4 grams/m\S\2 LV mass(C)s 257.4 grams LV mass(C)sI 128.7 grams/m\S\2 SV(Teich) 45.8 ml SI(Teich) 22.9 ml/m\S\2 SV(cubed) 53.2 ml SI(cubed) 26.6 ml/m\S\2 LA dimension 3.8 cm LVOT diam 2.0 cm LVOT area 3.2 cm\S\2 LVAd ap4 37.2 cm\S\2 LVLd ap4 8.4 cm EDV(MOD-sp4) 138.0 ml EDV(sp4-el) 140.9 ml LVAs ap4 24.7 cm\S\2 LVLs ap4 7.1 cm ESV(MOD-sp4) 71.5 ml ESV(sp4-el) 73.3 ml EF(MOD-sp4) 48.2 % EF(sp4-el) 48.0 % SV(MOD-sp4) 66.5 ml SI(MOD-sp4) 33.3 ml/m\S\2 SV(sp4-el) 67.6 ml SI(sp4-el) 33.8 ml/m\S\2 Doppler Measurements and Calculations MV E max charly 121.8 cm/sec MV A max charly 159.0 cm/sec MV E/A 0.77 MV dec time 0.34 sec Ao V2 max 296.6 cm/sec Ao max PG 35.2 mmHg Ao max PG (full) 32.4 mmHg Ao V2 mean 217.0 cm/sec Ao mean PG 20.8 mmHg Ao mean PG (full) 19.3 mmHg Ao V2 VTI 67.6 cm PETER(I,A) 0.89 cm\S\2 PETER(I,D) 0.89 cm\S\2 PETER(V,A) 0.91 cm\S\2 PETER(V,D) 0.91 cm\S\2 LV V1 max PG 2.8 mmHg LV V1 mean PG 1.4 mmHg LV V1 max 83.9 cm/sec LV V1 mean 56.6 cm/sec LV V1 VTI 18.7 cm SV(LVOT) 60.3 ml SI(LVOT) 30.2 ml/m\S\2
== END | disposition home or self-care (01) ==
LOC: C.CPL 12:25
PROVIDERS: ATTEND Physician Assistant
DX: I35.8 Other nonrheumatic aortic valve disorders (principal); J44.9 Chronic obstructive pulmonary disease, unspecified; J98.4 Other disorders of lung

== ENCOUNTER → 2016-09-10 | Outpatient (CLI) | payer OTHER, BC ==
--- NOTE | 2016-09-10 12:15 | SWALLOWING EVALUATION ---
HISTORY: This 50 year-old man, from home, who was referred for a VFSS at [facility]. He has a PMH significant for lung disease, COPD, diabetes I, and CPAP at night. Currently the patient's diet level is regular with thins. Pt reports that he doesn't thins he has a problem with aspiration but that this testing evolved from his reporting that he possibly aspirated while she was giving his meds when he was in a less than conscious state. Pt. was seen bedside 08/25/2016 with reduced laryngeal elevation, anterior spillage, oral residue with cough 1x. PROCEDURE: The patient was seen in the Radiology Department of [facility] for the VFSS. Cursory examination of the oral cavity revealed adequate dentition. Movement of the articulators was WNL. The patient was seated in a wheel chair and was viewed in both the Anterior-Posterior (A-P) and Lateral planes. Volitional phonation exercises completed in the A-P plane revealed bilateral vocal fold movement and vocal intensity within functional limits. In the lateral plane, the patient was given the following barium-infused boluses: 1 tsp thin barium with oral hold 1x, self presented single cup swallow-thin barium 1x, self presented serial cup swallow 1x. 1 tsp nectar thick barium with oral hold 1x, self presented single cup swallow- nectar thick barium 1x, 1 tsp barium pudding-self presented 2x. 1/2 Cracker with barium paste. In the A-P view, pt was given 1 tsp barium pudding with esophageal scan. Note that pt. was initially very concerned about barium consumption secondary to dialysis. He was fully educated on amounts that he will need to consume to complete this study and agreed to conduct testing. RESULTS: Oral Phase:Pt. had adequate lip closure and no labial escape of any food or liquid items presented. Pt. had adequate tongue control and bolus hold by demonstrating a cohesive bolus between tongue and palatal seal. Bolus preparation and mastication was WFL as timely and efficient chewing and mashing was observed with all consistencies. Bolus transport and lingual motion were functional as pt. demonstrated brisk tongue motion and no oral residue resulting in complete oral clearance. Initiation of pharyngeal swallow began with bolus head at posterior angle of ramus. * Overall WFL for oral phase of swallow. *Note- with large sequential swallows of thins and nectars swallow initiation was initiated when bolus head entered the pyriforms. Pharyngeal Phase:Soft Palate Elevation was complete for all boluses and no bolus was between the soft palate and the pharyngeal wall. Laryngeal elevation was WFL showing complete superior movement of the thyroid cartilage with complete approximation of arytenoids to epiglottic base. Anterior Hyoid excursion was observed with complete anterior movement as well as complete epiglottic inversion. Laryngeal Vestibular closure was complete and no air or barium was noted in laryngeal vestibule. Pharyngeal stripping wave was present and complete. Pharyngeal contraction was complete for all tested items. Pharyngoesophageal segment opening was also WFL showing complete distension and complete duration with no obstruction of flow. Tongue base retraction was noted with all consistencies and tongue base made effective contact with posterior pharyngeal wall throughout study. There was no Pharyngeal residue resulting in complete pharyngeal clearance of all tested items. *Overall WFL for pharyngeal stage of the swallow. * No aspiration or penetration was observed throughout this study. Esophageal Phase:Opening and closing of the UES was timely and efficient. Did note some mild esophageal retention with the beginning of some possible retrograde motion. SUMMARY/RECOMMENDATIONS: Overall pt. presents with NO oral or pharyngeal dysphagia. NO aspiration and NO penetration occurred throughout this study. Recommendin. Regular diet with thin liquids 2. Safe Swallow Strategies (small bites, small sips, slow rate) All results and recommendations were discussed with the pt. and he voiced understanding. Thank you for referral of this patient. Please contact me at if any additional information is needed.
--- NOTE | 2016-09-10 13:08 | DIAGNOSTIC IMAGING REPORT ---
VIDEO SWALLOW STUDY CLINICAL HISTORY: Interstitial lung disease. COMPARISON STUDY: No priors. Fluoroscopy time: 2.6 minutes. FINDINGS: Fluoroscopic guidance is provided to the Department of Speech Pathology in performing a video swallow study. The patient consumed barium-impregnated pudding, nectar thick liquid, and thin barium while the swallowing mechanism was observed in real-time. No penetration or aspiration was seen. Esophageal dysmotility is observed. IMPRESSION: 1. No penetration or aspiration was identified. 2. A subtle dysmotility is observed. 3. See dedicated speech pathology report for detailed findings and recommendations. Dictated: 09/10/2016 11:58 AM Transcribed: 09/10/2016 1:07 PM [email or web address] Electronically signed by: David Lindo M.D. 09/10/2016 1:13 PM Dictated Date/Time: 09/10/2016 11:58 AM
--- NOTE | 2016-09-15 06:06 | CODING QUERY MEDICAL NECESSITY ---
SUPPORTING DIAGNOSIS NEEDED A supporting diagnosis is required for the test/procedure performed on this patient in order for us to be reimbursed by the patient's insurance. Please provide a supporting diagnosis for the following test/procedure listed below next to the test name along with your signature. *If there is no additional diagnosis for this patient that would support the following test/procedure please document that below next to the test/procedure. Test(s)/Procedure(s) that require a supporting diagnosis: *VIDEO SWALLOW DIAGNOSIS: Provider Signature: Date: Thank you Lizzeth [employer] Once completed, please kindly fax back to [phone] For questions please call [phone]
== END | disposition home or self-care (01) ==
LOC: C.RAD 10:48
PROVIDERS: ATTEND Physician Assistant
DX: Z87.09 Personal history of other diseases of the respiratory system (principal); K22.4 Dyskinesia of esophagus; J39.8 Other specified diseases of upper respiratory tract; J42 Unspecified chronic bronchitis

== ENCOUNTER 2016-09-20 14:50 | Emergency (ER) | payer OTHER, BC ==
[~2016-09-20] VITALS: Ht 170.2 cm; Wt 85.5 kg
[~2016-09-20 14:50] MED LIST changes: -AZIT-57 PO; -BUPR200T2 PO; -GFNSR600 PO; +GLUCOSE 40% GEL 15 GM TUBE ONE
[2016-09-20] MEDS ORDERED: GLUCOSE 10 TABS/TUBE ONE (15:00)
[2016-09-20 15:02] VITALS: TEMP 36.7; Ht 170.2 cm; Wt 85.5 kg
[2016-09-20 16:20] VITALS: BP 165/87; PULSE 77; O2SAT 95
--- NOTE | 2016-09-20 17:14 | Pharmacy Progress Note ---
ED Pharmacist Counseling Note Date of Service: Sep 20, 2016. I spent 20 minutes with the patient discussing insulin regimen / pump settings. Discussed basal settings, carb ratio, sliding scale, site rotation, BSG monitoring, and day differences to regimen at length. Patient notes his basal setting has been constant for many years. Patient is followed by Dr. Savage for his diabetes care. Patient outlined his insulin regimen in detail , but also frequently noted that Dr. Savage believes that he "over-boluses" himself, which the patient denies. Hesitant to adjust settings/regimen significantly, especially as this is a chronic problem that is being managed by diabetes experts. However, strongly encouraged the patient to discuss the feeling of pain/pinching he experiences often when bolusing himself with insulin with Dr. Savage as the volume of injection should not likely cause this sensation when bolused from a pump and may indicate that his site may not be appropriate.
--- NOTE | 2016-09-20 20:29 | EMERGENCY ROOM VISIT NOTE ---
History Report prepared by Cece: Ronaldo Stone Under the Supervision of: Dr. Shadi Dennis M.D. First contact with patient: 15:59 Chief Complaint: HYPOGLYCEMIA Stated Complaint: 11 Nursing Triage Summary: in speech lab with therapy and passed out blood sugar was 23 gave him some gel and come up to 35 sent to Er History of Present Illness The patient is a 50 year old male who presents to the Emergency Room with complaints of an episode of hypoglycemia that occurred a couple hours ago. The patient says that he was eating an egg salad sandwich in the speech lab for speech therapy when his blood sugar dropped to 32. Per the speech pathologist, the patient became unresponsive at that point but did not pass out. The patient was given glucose gel there and his sugars went up to 35. He was then sent here , and when he got here, his sugars were 38. He was then given 3 sugar tablets here, per the nursing staff, as well as apple juice and a candy bar. The patient 's sugars went up to 58 after the tablets, and went up to 145 after the candy bar. The patient says that he currently feels fine, and denies any recent illnesses, fevers, chest pain, shortness of breath, abdominal pain, vomiting, or diarrhea. He did not fall when he became unresponsive. The patient states that his sugars have been dropping frequently recently, and was here 2 weeks ago for another episode. He adds that his doctor has told him that he gives himself too much insulin. The patient says that his insulin pump has been working normally. His last dialysis was 2 days ago. Source of History: patient, nursing staff, other (speech pathologist) Onset: A couple hours ago Position: other (global - hypoglycemia) Symptom Intensity: sugars dropped to 32 Timing: other (episode) Modifying Factors (Relieving): other (glucose tablets, food) Associated Symptoms: No fevers, No chest pain, No SOB, No vomiting, No abdominal pain, No diarrhea Note: Associated symptoms: Became unresponsive at speech lab. Denies recent illnesses. Review of Systems See HPI for pertinent positives & negatives. A total of 10 systems reviewed and were otherwise negative. 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 (13) End-stage renal disease on hemodialysis (14) Gram-positive cocci bacteremia (15) History of diabetic ulcer of foot (16) Hyperparathyroidism due to renal insufficiency (17) Hypertension (18) Hypothyroidism (19) infected hematoma R thigh (20) Loss of sensation (21) multipel pna, sepsis (22) multipel pna, sepsis (23) Pneumonia (24) Pulmonary edema (25) Tracheomalacia (26) venous stenosis AVF Family History FH: heart disease Social History Smoking Status: Former Smoker Alcohol Use: none Drug Use: none Marital Status: Housing Status: lives with family Occupation Status: disabled Current/Historical Medications Scheduled Amlodipine Besylate (Norvasc), 2.5 MG PO 4XWK Atorvastatin (Atorvastatin Calcium), 40 MG PO DAILY Bupropion HCl (Bupropion HCl Sr), 150 MG PO DAILY Cinacalcet (Sensipar), 30 MG PO DAILY Clopidogrel Bisulfate (Clopidogrel), 75 MG PO Q2D Fluticasone Furoate-Vilanterol (Breo Ellipta 200-25 Mcg/INH), 1 PUFF INH DAILY Furosemide (Furosemide), 80 MG PO BID Gabapentin (Gabapentin), 100 MG PO BID Insulin Aspart (novoLOG INSULIN PUMP ), 1 EA N/A UD Levothyroxine Sodium (Levothyroxine Sodium), 112 MCG PO DAILY Lidocaine-Prilocaine (Lidocaine/Prilocaine), 1 APPLN TOP UD Metoprolol Tartrate (Lopressor) (Lopressor), 50 MG PO BID Sevelamer Carbonate (Renvela), 1,600 MG PO TIDM Sevelamer Carbonate (Renvela), 800 MG PO DAILY Umeclidinium [place] (Incruse Ellipta), 1 PUFF INH DAILY Scheduled PRN Tramadol (Ultram), 50 MG PO Q4H PRN for Pain Allergies Coded Allergies: Tigecycline (Verified Allergy, Mild, ?RASH, 09/02/16) Penicillins (Verified Allergy, Unknown, PT HAS HAD MEFOXIN W/OUT A PROBLEM , 09/02/16) HAD MEFOXIN W/O PROBLEM Ciprofloxacin (Verified Adverse Reaction, Intermediate, nausea,vomiting, generalized weakness, 09/02/16) Morphine (Verified Adverse Reaction, Intermediate, TREMBLING,NAUSEA AND VOMITING, 09/02/16) Opioid Analgesics (Verified Adverse Reaction, Intermediate, "ALL RX PAIN MEDS CAUSE SEVERE NAUSEA", 09/02/16) Codeine (Verified Adverse Reaction, Mild, NAUSEA AND VOMITING, 09/02/16) QUESTIONABLE ALLERGY Levofloxacin (Verified Adverse Reaction, Mild, Cipro/Levaquin (IV & po) = N & V, 09/02/16) Oxycodone (Verified Adverse Reaction, Unknown, N/V/D, 09/02/16) SPOKE WITH PATIENT ON 07/29/15, DOES NOT REMEMBER ANY DIFFICULTY BREATHING JUST HIT HIM HARD. Physical Exam Vital Signs Date Time Temp Pulse Resp B/P (MAP) Pulse Ox O2 Delivery O2 Flow Rate FiO2 09/20/16 16:20 77 20 165/87 95 Room Air 09/20/16 15:02 36.7 74 20 162/90 97 Room Air Physical Exam Constitutional: Vital signs reviewed. Eyes: Pupils are equal round reactive to light. Conjunctiva are noninjected. ENT: Pharynx is clear without erythema or exudate. Mucous membranes are moist. Neck supple without meningeal signs. Respiratory: Clear to auscultation bilaterally. Breath sounds are equal bilaterally. Cardiovascular: Regular rate and rhythm. No rubs or gallops. GI: Soft, nondistended and nontender. Bowel sounds are present. Musculoskeletal: No peripheral edema. No lower extremity tenderness. AV fistula left forearm. Integumentary: No cyanosis. Neurological: The patient is awake and alert. No focal deficits. Psychiatric: Normal affect. Medical Decision & Procedures Laboratory Results Test 09/20/16 16:54 Bedside Glucose 337 mg/dl (70-99) Medications Administered Medications (Trade) Dose Ordered Sig/Etta Route Start Time Stop Time Status Last Admin Dose Admin Glucose (Glucose Chew Tab) 10 tabs STK-MED ONCE .ROUTE 09/20/16 15:00 09/20/16 15:01 DC 09/20/16 15:24 10 TABS ED Course 1603: The patient was evaluated in room A1. A complete history and physical exam was performed. The patient verbally expressed understanding and agreement with the treatment plan. The patient will be discharged. 1626: Repeat BSG was 243. 1629: I had the ED pharmacist talk to the patient about insulin dosing. Medical Decision This is a 50-year-old male who presents with hypoglycemia. I did perform a limited focused review of portions of the patient's old chart on the electronic medical record. The patient was here September 02 for hypoglycemia. His glucose was 31. Blood Pressure Screening: Patient was found to have an elevated blood pressure and was referred to their primary doctor for recheck and further treatment. Medication Reconciliation: I attest that I have personally reviewed the patient' s current medication list. I did evaluate the patient as noted above. His blood sugar is normal now. He was given glucose tablets here. He did not wish to have any blood work or any evaluation. We rechecked his blood sugar was over 200. He has had this problem frequently. I did have the pharmacist talked to him about insulin dosing. He was discharged and advised follow up with his doctor. He will check his blood sugars hourly today. Impression Primary Impression: Hypoglycemia Scribe Attestation The scribe's documentation has been prepared under my direct and personally reviewed by me in its entirety. I confirm that the note above accurately reflects all work, treatment, procedures, and medical decision making performed by me. Departure Information Dispostion Home / Self-Care Referrals Devendra Bland M.D. (PCP) Patient Instructions ED Diabetes Hypoglycemia Insulin React, My [facility] Additional Instructions You have been examined and treated today on an emergency basis only. This is not a substitute for, or an effort to provide, complete comprehensive medical care. It is impossible to recognize and treat all injuries or illnesses in a single emergency department visit. It is therefore important that you follow up closely with your physician. Call as soon as possible for an appointment. Return for worsening symptoms or if you develop dizziness, sweating, chest pain , shortness of breath, fever, vomiting, or any other concerning symptoms. Check your blood sugars hourly today.
== END 2016-09-20 17:10 | disposition home or self-care (01) ==
LOC: EDBD 14:50 → EDSEX 14:50 → C.ED 14:53
DX: E10.649 Type 1 diabetes mellitus with hypoglycemia without coma (principal); Z96.41 Presence of insulin pump (external) (internal); Z99.2 Dependence on renal dialysis; N18.6 End stage renal disease; I12.0 Hypertensive chronic kidney disease with stage 5 chronic kidney disease or end stage renal disease; E10.40 Type 1 diabetes mellitus with diabetic neuropathy, unspecified; N25.81 Secondary hyperparathyroidism of renal origin; Z87.01 Personal history of pneumonia (recurrent); F31.9 Bipolar disorder, unspecified; E03.9 Hypothyroidism, unspecified; Z87.891 Personal history of nicotine dependence; Z79.4 Long term (current) use of insulin; Z79.899 Other long term (current) drug therapy; R59.0 Localized enlarged lymph nodes

== ENCOUNTER → 2016-10-11 | Day surgery (SDC) | payer OTHER, BC ==
[~2016-10-11] MED LIST changes: +BUPR200T2 PO; -GLUCOSE 40% GEL 15 GM TUBE ONE
--- NOTE | 2016-10-11 08:25 | History and Physical ---
History & Physical Date Oct 11, 2016. Chief Complaint Start 50-year-old gentleman here for bronchoscopy evaluation of relapsing polychondritis/tracheobronchial malacia, progressive atelectasis, severe COPD and progressive dyspnea/atelectasis. He has a PmHx: significant for prevsiously noted illnesses as well as a PEA arrest with associated PE and cardiomyopathy. history of pulmonary embolism: 1. Atelectasis: There is progression of patient's bronchiectasis and atelectasis when comparing CTs of the chest from June 2015 to March 2016. The patient has had multiple admissions to the hospital for pneumonia and at this time we will move forward with bronchoscopy to evaluate for any under diagnosis infection as well as possible foreign body or other etiologies of progressive atelectasis. 2. Relapsing polychondritis: Patient's CT scan shows signs of tracheobronchial malacia but his most recent evaluation by Dr. Latoya culver of the Rheumatology Department shows no active signs of a rheumatologic flare. We will further evaluate tracheobronchial malacia with bronchoscopy. 3. Pulmonary embolism: Patient had a pulmonary embolism status post PEA arrest at [facility] and was treated with anticoagulation. This was discontinued in July of [address] Arias cheema of the Hematology Oncology Department. Due to the patient's severe peripheral arterial disease the patient continues on Plavix at this time. 4. Infectious Disease: The patient has grown out Achromobacter Xylosoxidans the previous cultures as well as a history of pseudomonal infection. Once again will perform bronchoscopy for further evaluation. 5. Aspiration: The patient has undergone barium swallow as well as speech pathology evaluation. At this time the speech pathologist do recommend performing video swallow evaluation for definitive workup. 6. Deconditioning: At this time I will also place a consult for physical therapy as the patient will need aggressive physical therapy to help with his unsteady gait. This will also benefit his notable atelectasis. History of Present Illness The patient is a 50 year old male with complaints of 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 (13) End-stage renal disease on hemodialysis (14) Gram-positive cocci bacteremia (15) History of diabetic ulcer of foot (16) Hyperparathyroidism due to renal insufficiency (17) Hypertension (18) Hypothyroidism (19) infected hematoma R thigh (20) Loss of sensation (21) multipel pna, sepsis (22) multipel pna, sepsis (23) Pneumonia (24) Pulmonary edema (25) Tracheomalacia (26) venous stenosis AVF Additional History Hepatic Disease: No Endocrine Disorder: Yes Kidney Disease: Yes Hypertension: Yes Heart Disease: Yes Bleeding Tendencies: Yes Infectious Diseases: Yes Allergies Coded Allergies: Tigecycline (Verified Allergy, Mild, ?RASH, 09/02/16) Penicillins (Verified Allergy, Unknown, PT HAS HAD MEFOXIN W/OUT A PROBLEM , 09/02/16) HAD MEFOXIN W/O PROBLEM Ciprofloxacin (Verified Adverse Reaction, Intermediate, nausea,vomiting, generalized weakness, 09/02/16) Morphine (Verified Adverse Reaction, Intermediate, TREMBLING,NAUSEA AND VOMITING, 09/02/16) Opioid Analgesics (Verified Adverse Reaction, Intermediate, "ALL RX PAIN MEDS CAUSE SEVERE NAUSEA", 09/02/16) Codeine (Verified Adverse Reaction, Mild, NAUSEA AND VOMITING, 09/02/16) QUESTIONABLE ALLERGY Levofloxacin (Verified Adverse Reaction, Mild, Cipro/Levaquin (IV & po) = N & V, 09/02/16) Oxycodone (Verified Adverse Reaction, Unknown, N/V/D, 09/02/16) SPOKE WITH PATIENT ON 07/29/15, DOES NOT REMEMBER ANY DIFFICULTY BREATHING JUST HIT HIM HARD. Home Medications Scheduled Amlodipine Besylate (Norvasc), 2.5 MG PO 4XWK Atorvastatin (Atorvastatin Calcium), 40 MG PO DAILY Bupropion HCl (Bupropion HCl Sr), 150 MG PO DAILY Cinacalcet (Sensipar), 30 MG PO DAILY Clopidogrel Bisulfate (Clopidogrel), 75 MG PO Q2D Fluticasone Furoate-Vilanterol (Breo Ellipta 200-25 Mcg/INH), 1 PUFF INH DAILY Furosemide (Furosemide), 80 MG PO BID Gabapentin (Gabapentin), 100 MG PO BID Insulin Aspart (novoLOG INSULIN PUMP ), 1 EA N/A UD Levothyroxine Sodium (Levothyroxine Sodium), 112 MCG PO DAILY Lidocaine-Prilocaine (Lidocaine/Prilocaine), 1 APPLN TOP UD Metoprolol Tartrate (Lopressor) (Lopressor), 50 MG PO BID Sevelamer Carbonate (Renvela), 1,600 MG PO TIDM Sevelamer Carbonate (Renvela), 800 MG PO DAILY Umeclidinium [place] (Incruse Ellipta), 1 PUFF INH DAILY Scheduled PRN Tramadol (Ultram), 50 MG PO Q4H PRN for Pain Physical Examination Skin: warm/dry Eyes: normal inspection, EOMI, sclerae normal ENT: normal ENT inspection, pharynx normal Head: normocephalic, atraumatic Neck: supple, no adenopathy, trachea midline Respiratory/Chest: + pertinent finding (decreased BS at the basis bilaterally ) Cardiovascular: + systolic murmur, + pertinent finding (LUE shunt with bruit) Abdomen / GI: normal bowel sounds, non tender Back: normal inspection Extremities: normal inspection, normal range of motion, + pertinent finding ( AKA) Genitourinary - Male: normal male genitalia Neurologic/Psych: no motor/sensory deficits, alert, normal reflexes, oriented x 3 Diagnosis Chronic cough and progressive dyspnea with associated atelectasis, mediastinal lymphadenopathy, dyspnea, possible aspiration ASA Classification: ASA Class IV Plan of Treatment Bronchoscopy with BAL
--- NOTE | 2016-10-11 09:17 | Pulmonology Progress Note ---
Pulmonary Progress Note Date of Service Oct 11, 2016. Attending Dr. Ojeda Subjective Patient noted he feels "hypoglycemic". He presented for his bronchoscopy today to [facility] and his pre-procedural finger stick glucose levels where 49 & 50. The patient noted easy irritability, fatigue but denied: fever, chills, chest pain and productive cough. Objective The patient is doing well at this time with no fever, chills, chest pain pleurisy or productive cough. PE: VS: stable with on-sight HR of 44 but no hemodynamic instability. RESPI: no changes with rhonchi in the L>>R lower lobes CARDL S1S2 RRR with 4/6 systolic murmur best appreciated over the right upper sternal border ABD: soft, nontender, no rebound SKIN: in signs of tissue break-down Assessment & Plan The patient is here for bronchoscopic evaluation of his Atelectasis, Relapsing polychondritis, chronic bronchiectasis: Plan: 1) Bronchoscopy: will d/c the bronchoscopy at this time and monitor the patient. 2) Hypoglycemia: The patient is stable at this time and as he has had numerous episodes of hypoglycemia and he notes no sever side effects I will not push and IV glucose but will feed him at this time and monitor him for the next 3-4 hours. I will also obtain a serum/blood glucose to check for correlation with his finger stick. Data Laboratory Results: Last 24 Hours Test 10/11/16 08:14 10/11/16 08:35 10/11/16 09:07 Bedside Glucose 49 mg/dl 50 mg/dl
--- NOTE | 2016-10-11 11:20 | Discharge Instructions ---
Discharge Instructions Date of Service Oct 11, 2016. Admission Reason for Admission: Pulmonary Emboli, Abnormal Ct Scan Discharge Discharge Diagnosis / Problem: chronic bronchiectasis, tracheobronchial malacia , chronic dyspnea, chronic Discharge Goals Goal(s): Diagnostic testing Activity Recommendations Activity Limitations: resume your previous activity . Current Hospital Diet Patient's current hospital diet: Renal Diet, Diabetes Type 2 Diet Discharge Diet Recommended Diet: Regular Diet Procedures Procedures Performed: None Pending Studies Studies pending at discharge: no Medical Emergencies . Who to Call and When: Medical Emergencies: If at any time you feel your situation is an emergency, please call 911 immediately. . Non-Emergent Contact Non-Emergency issues call your: Inserting Machine Operator, Principal Quality Engineer Call Non-Emergent contact if: temperature is above 101.5 . . "Provider Documentation" section prepared by Shadi Ojeda. . VTE Core Measure Inpt VTE Proph given/why not?: Other Anticoagulation
== END | disposition home or self-care (01) ==
LOC: C.ACU 07:38
PROVIDERS: ATTEND Internal Medicine Critical Care Medicine
DX: J98.11 Atelectasis (principal); Z53.8 Procedure and treatment not carried out for other reasons; M94.1 Relapsing polychondritis; J44.9 Chronic obstructive pulmonary disease, unspecified; Z86.711 Personal history of pulmonary embolism

== ENCOUNTER → 2016-10-22 | Outpatient (CLI) | payer OTHER, BC ==
--- NOTE | 2016-10-22 12:37 | DIAGNOSTIC IMAGING REPORT ---
VIDEO SWALLOW STUDY CLINICAL HISTORY: Aspiration pneumonia. COMPARISON STUDY: Video swallow study dated 09/10/2016. Fluoroscopy time: 2.8 minutes. FINDINGS: Fluoroscopic guidance provided to the department of speech pathology in performing a video swallow study. The patient consumed barium-impregnated pudding, cracker with paste, nectar thick liquids, and thin barium while the swallowing mechanism was observed in real time. No penetration or aspiration was seen with any of the sampled textures. Esophageal dysmotility was observed. IMPRESSION: No penetration or aspiration was seen with any of the sampled textures. See dedicated speech pathology report for detailed findings and recommendations. Dictated: 10/22/2016 12:14 PM Transcribed: 10/22/2016 12:36 PM [email or web address] Electronically signed by: David Lindo M.D. 10/22/2016 12:55 PM Dictated Date/Time: 10/22/2016 12:14 PM
--- NOTE | 2016-10-22 13:08 | SWALLOWING EVALUATION ---
HISTORY: This 50 year old man was referred for a video swallow study at [facility] in order to rule out aspiration and identify the safest consistencies for optimal oral intake. The patient had an unresponsive episode during an outpatient speech therapy session, where her blood sugars were found to be 23 and required treatment in the emergency department. He also participated in a previous video swallow study on 09/10/16 that reported normal oropharyngeal swallowing and evidence of esophageal dysphagia. The patient reported that the physician is concerned about possible aspiration for reflux as well. PMH is significant for DM I with insulin pump, hypoglycemia, asthma, SOB, CHF, pneumonia, hypoxia, seizures, trachea-malacia, COPD, and bipolar disorder. Current diet is regular. PROCEDURE: The patient was seen in the Radiology Department of [facility] for the VFSS. Cursory examination of the oral cavity revealed natural dentition in good condition. Oral motor function was wnl. The patient was seated in a wheelchair and was viewed in both the Anterior-Posterior (A-P) and Lateral planes. Volitional phonation exercises completed in the A-P plane revealed bilateral vocal fold movement and vocal intensity within functional limits. In the lateral plane, the patient was given the following boluses: 1 tsp. thin liquid barium x 2, single swallow thin liquid barium self-presented from a cup, sequential swallows of thin liquid barium self-presented from a cup, 1 tsp. nectar-thick liquid barium, single swallow nectar-thick liquid barium self-presented from a cup, 1 tsp. barium pudding, and 1 club cracker coated in barium pudding. The patient was then repositioned into the A-P plane and given the following boluses: 1 tsp. nectar thick barium and 1 tsp. barium pudding. RESULTS: Oral Stage: Lip closure was adequate. The patient was able to maintain a cohesive liquid bolus in the oral cavity upon command during the liquid bolus hold task. Mastication was timely and efficient. Lingual motion for bolus transport was noted to be slow. There was retention lining the tongue and palate after the swallow. The initiation of the pharyngeal swallow was delayed and triggered when the bolus head reached the valleculae. Pharyngeal Stage: Soft palate elevation was complete. Laryngeal elevation revealed complete superior movement of the thyroid cartilage with complete approximation of the arytenoids to the epiglottic base. Anterior hyoid excursion was complete as was epiglottic deflection. Laryngeal vestibular closure was complete. The pharyngeal stripping wave was present and complete. There was complete distention and duration of the opening to the pharyngoesophageal segment (PES). Tongue base retraction was wnl with complete contact of the tongue base and pharyngeal wall during the swallow. There was trace retention located along the tongue base and in the valleculae after the swallow. There was no evidence of laryngeal penetration or aspiration during the study. Esophageal stage: There was esophageal retention throughout the mid and distal esophagus. A liquid wash assisted to clear some of this retention. These findings are suggestive of esophageal dysmotility. No retrograde motion toward the PES was noted for this study. SUMMARY/RECOMMENDATIONS: This patient presents with normal nasim-pharyngeal dysphagia. He has s/s of esophageal dysfunction. The following is recommended: 1. Regular diet and thin liquids. 2. Aspiration and GERD (reflux) precautions. Fully upright while eating and 30 minutes after meals. Head of the bed should be elevated to 30 degrees at all times to include while asleep. 3. Safe swallow strategies: Avoid foods that are dry, thick, pasty, or doughy. Rest breaks while eating. Alternate solids and liquids. 4. Follow up with PCP as needed. Consider medication management for s/s of reflux along with a consultation with a floor scrubber as needed with any increased discomfort while eating. A summary of the results and recommendations was discussed with the patient immediately following the study with verbal understanding. The patient was also provided with verbal education regarding a "slippery" diet for improved comfort while eating (avoiding foods that are dry, thick, pasty, or doughy) as needed. He verbalized understanding to this and is very aware of foods he can/cannot tolerate. Thank you for referral of this patient. Please contact me at if any additional information is needed.
== END | disposition home or self-care (01) ==
LOC: C.RAD 10:32
PROVIDERS: ATTEND Internal Medicine Critical Care Medicine
DX: J69.0 Pneumonitis due to inhalation of food and vomit (principal); R93.8 Abnormal findings on diagnostic imaging of other specified body structures

== ENCOUNTER → 2016-11-05 | Day surgery (SDC) | payer OTHER, BC ==
[~2016-11-05] VITALS: Ht 177.8 cm; Wt 83.5 kg
[~2016-11-05] MED LIST changes: +CEFAZOLIN 1000MG/55 ML D5W IV SCH; +CLINDAMYCIN 600 MG/54 ML D5W IV ONE; +D5W AND 1/4NSS 1,000 ML IV SCH; +FENTANYL CITRATE INJ 50 MCG/1 ML 2 ML VIAL IV ONE; +FENTANYL CITRATE INJ 50 MCG/1 ML 2 ML VIAL ONE; +LIDOCAINE HCL 1% 20 ML VIAL INJ ONE; +MIDAZOLAM HCL 1 MG/ML 2ML VIAL IV ONE; +MIDAZOLAM HCL 1 MG/ML 2ML VIAL ONE; +NURSING VERBAL MED ORDER ONE; +OPTIRAY 300 IV ONE
--- NOTE | 2016-11-05 06:10 | History and Physical ---
History & Physical Date of Service Nov 05, 2016. History & Physical Chief Complaint: Malfunctioning left upper arm fistula History of Present Illness: The patient is a 46 year old male who has had trouble with his dialysis runs via his woody fistula. Allergies: Coded Allergies: Codeine (Verified Allergy, Mild, QUESTIONABLE, 12/08/09) QUESTIONABLE ALLERGY Morphine (Verified Adverse Reaction, Intermediate, TREMBLING, 12/08/09) Penicillins (Verified Allergy, Unknown, PT HAS HAD MEFOXIN W/OUT A PROBLEM , 12/08/09) HAD MEFOXIN W/O PROBLEM Opioid Analgesics (Verified Adverse Reaction, Intermediate, "ALL RX PAIN MEDS CAUSE SEVERE NAUSEA", 12/08/09) Surgical/medical Hx: Hx Cardiac Surgery: No Hx Abdominal Surgery: Yes (APPY) Hx Cancer Surgery: No Hx Thoracic Surgery: No Hx Orthopedic: Yes (LEFT KNEE MENISCUS) Hx Urinary Tract Surgery: No HX Other Surgery: Yes (CATARACT/RETINOPATHY/L AND R ARM AVF) Past Medical History: Arthritis, Depression, Diabetes, Hypertension, Kidney Disease, Thyroid Disease Social Hx: Smoking Status: Current every day smoker Review of Systems: Constitutional: No chills, No diaphoresis, No fever, No malaise, No weakness, No weight gain, No weight loss, No sweats, No fatigue, No problem reported Skin: No change in color, No change in hair/nails, No dryness, No lesions, No lumps, No rash, No abnormal mole, No problem reported Eyes: No discharge, No blurred vision, No double vision, No eye pain, No tearing , No itching, No photophobia, No redness, No visual changes, No dryness, No irritation, No problem reported ENMT: No dental pain, No loss of hearing, No epistaxis, No ear discharge, No ear pain, No gum swelling, No mouth pain, No mouth swelling, No nasal congestion , No nasal pain, No rhinorrhea, No stridor, No tinnitus, No sore throat, No throat swelling, No problem reported Respiratory: No cough, No cyanosis, No LEE, No hemoptysis, No orthopnea, No PND , No short of breath, No sputum production, No stridor, No wheezing, No dyspnea , No problem reported Cardiovascular: No chest pain, No chest tightness, No chest pressure, No palpitations, No syncope, No diaphoresis, No edema, No intermittent claudication , No orthopnea, No cyanosis, No mumur, No lightheadedness, No paroxysmal nocturnal dyspnea, No problem reported Gastrointestinal: No abdominal pain, No constipation, No diarrhea, No nausea, No vomiting, No anorexia, No appetite changes, No belching, No flatulence, No food intolerance, No hematemesis, No hemorrhoids, No hematochezia, No stool changes, No heartburn, No indigestion, No dysphagia, No rectal bleeding, No problem reported Genitourinary - Male: + problem reported (renal failure) Musculoskeletal: No back pain, No gout, No joint pain, No joint swelling, No muscle pain, No muscle stiffness, No muscle weakness, No neck pain, No problem reported Psychiatric: No anxiety, No alcohol abuse, No auditory hallucinations, No depression, No drug abuse, No homicidal ideation, No mood changes, No suicidal ideation, No visual hallucinations, No problem reported Phsical Exam: Constitutional: General Apperance: heathly-appearing, well-nourished, well-developed Level of Distress: NAD Ambulation: ambulating normal Psychiatric: Mental Status: active & alert, normal mood, normal affect Orientation: oriented except where noted, to time, to place, to person Memory: recent memory normal, remote memory normal Eyes: EOM: EOMI ENMT: normal ENT inspection Neck: supple, trachea midline Lungs: Auscuitation: breath sounds normal Cardiovascular: Heart Auscultation: RRR Peripheral Pulses: Superficial Temporal Artery: normal on the left, normal on the right Carotid Pulse: normal on the left, normal on the right Radial Pulse: normal on the left, normal on the right Femoral Pulse: normal on the left, normal on the right Popliteal Pulse: absent on the left, absent on the right Posterior Tibialis Pulse: absent on the left, present on the right Dorsalis Pedis Pulse: absent on the left, absent on the right Abdomen: Inspection & Palpation: soft Extremities: Upper Right: no cyanosis, no edema, no varicosities, no palpable cord, no clubbing, no ulcers, no mottling Upper Left: no cyanosis, no edema, no varicosities, no palpable cord, no clubbing, no ulcers, no mottling Lower Right: no cyanosis, no edema, no varicosities, no palpable cord, no clubbing, no ulcers, no mottling Lower Left: non healing ischemic ulcer left foot Neurologic: Cranial Nerves: grossly intact Sensation: grossly intact Assessment and Plan: Imp: Malfunctioning woody avf Plan: Recommend a fistulogram with possible intervention if needed. He understands the risks options and benefits and agrees to the procedure.
[2016-11-05 08:46] VITALS: BP 159/62; PULSE 81; TEMP 37.1; O2SAT 100; Ht 177.8 cm; Wt 83.5 kg
--- NOTE | 2016-11-05 10:05 | History & Physical Bridge Note ---
H&P Re-Evaluation Bridge Note: I have examined the patient, reviewed the History & Physical and in the interval since the performance of the History & Physical I have noted the following changes of clinical significance: No changes noted
--- NOTE | 2016-11-05 10:06 | Procedure Note ---
Pre-Mod Sedation Assessment General Date of Moderate Sedation: Nov 05, 2016. Vital Signs: Vital Signs Past 12 Hours Date Time Temp Pulse Resp B/P (MAP) Pulse Ox O2 Delivery O2 Flow Rate FiO2 11/05/16 08:46 37.1 81 18 159/62 (94) 100 Room Air Pre-Sedation Airway Assessment Smoking Status: Former Smoker Mallampati Classification: Class I ASA Classification: Class III Notes The planned sedation has been discussed with the patient and consent obtained. I have identified the patient, determined the appropriateness of sedation and have assessed the patient immediately prior to the procedure. All medicine(s) and interventions are by my order.
[2016-11-05 11:23] VITALS: PULSE 75
--- NOTE | 2016-11-05 11:25 | Procedure Note ---
Post-Moderate Sedation Plan General Date of Moderate Sedation Nov 05, 2016. Vital Signs: Vital Signs Past 12 Hours Date Time Temp Pulse Resp B/P (MAP) Pulse Ox O2 Delivery O2 Flow Rate FiO2 11/05/16 11:23 75 16 120/78 98 Nasal Cannula 4 11/05/16 08:46 37.1 81 18 159/62 (94) 100 Room Air Review - Discharge Plan Post Moderate Sedation Plan: On clinical assessment, the patient appears to have tolerated the conscious sedation without complications. Patient is recovering as anticipated. Patient will continue to be monitored by nursing and may be discharged when conscious sedation discharge criteria are met.
--- NOTE | 2016-11-05 11:26 | [facility] Post Operative Brief Note ---
Immediate Operative Summary Operative Date Nov 05, 2016. Pre-Operative Diagnosis malfunctioning fistula Post-Operative Diagnosis same Procedure(s) Performed Fistulogram, Percutaneous Transluminal Angioplasty Venous, Moderate Concious Sedation [address] Thomas Track Fitter Surgeon(s) Jose Reynolds Estimated Blood Loss 3 ml Findings stenosis outflow vein Specimens none Anesthesia Local with sedation Complication(s) None Disposition
--- NOTE | 2016-11-05 11:27 | Discharge Instructions ---
Discharge Instructions Date of Service Nov 05, 2016. Visit Reason for Visit: Malfunctioning Anterior Venous Fistula Discharge Discharge Diagnosis / Problem: Malfunctioning fistula Discharge Goals Goal(s): Therapeutic intervention Activity Recommendations Activity Limitations: resume your previous activity Anesthesia . Post Anesthesia Instructions: If you have had General Anesthesia or IV Sedation: * Do not drive today. * Resume driving when surgeon permits. * Do not make important decisions or sign legal documents today. * Call surgeon for: 1. Temperature elevations greater than 101 degrees F. 2. Uncontrollable pain. 3. Excessive bleeding. 4. Persistent nausea and vomiting. 5. Medication intolerance (nausea, vomiting or rash). * For nausea and vomiting use only clear liquids such as: tea, soda, bouillon until nausea subsides, then gradually increase diet as tolerated. * If you have any concerns or questions, call your surgeon's office. If physician is unavailable and it is an emergency, call 911 or go to the nearest emergency room. . Instructions / Follow-Up Instructions / Follow-Up Call [phone] with any questions or concerns. SPECIAL CARE INSTRUCTIONS: Medications: * Continue to take your medications as directed. If you have been given a prescription for Plavix, please fill it immediately and take as directed. Incision Care: * Your puncture site may have some bruising and minor swelling for about one week. * You will have a small dressing covering your puncture site. You may remove the dressing after 24 hours and shower. You may let the warm soapy water run over it, but be sure to dry the puncture site well and keep it dry. * DO NOT IMMERSE THE INCISION IN A TUB/POOL/etc. UNTIL HEALED. * Puncture sites should be kept covered with a band-aid until it begins to heal. Restrictions: * Depending on whether you leg or arm was punctured to access the arteries, you will be required to lay flat, hold your arm still, or both, for about 4 hours after the procedure to prevent bleeding. * Limit your activity for the first 48 hours. You may walk and go up and down steps. Avoid excessive bending or movement at the puncture site. Possible Complications: * Excessive Swelling - after blood flow is improved you may notice increased swelling in the lower legs. This is a normal response. This usually depends on the amount of blockages in the leg, how long they have been there prior to your procedure and how much blood flow was restored. Elevating your legs will help to improve this. Please notify our office ([phone] ) if the swelling does not go away after lying in bed overnight. * Infection/Drainage/Bleeding - Drainage or bleeding from the puncture site should be minimal. If you have excessive bleeding or drainage, call our office ([phone]) right away. * Pain - You may experience some mild pain or soreness at your puncture site. If your pain does not improve, please contact our office ([phone]). Call your doctor and seek emergent treatment if you develop: * Temperature above 101 degrees * Any fever or chills * Any redness or purulent drainage from the puncture site * Any new dusky/blue colored toes or feet with coolness or sharp or aching pain. SKIN IRRITATION: * You may experience some redness and/or swelling in the area where radiation was administered. If any skin irritation occurs, please contact your family physician. FOLLOW UP VISIT: Keep any scheduled doctor appointments. Diet Recommendations Recommended Home Diet: resume previous diet Procedures Procedures Performed: Fistulogram, Percutaneous Transluminal Angioplasty Venous, Moderate Concious Sedation 1059 to 1122 Pending Studies Studies pending at discharge: no Medical Emergencies . Who to Call and When: Medical Emergencies: If at any time you feel your situation is an emergency, please call 911 immediately. . Non-Emergent Contact Non-Emergency issues call your: Surgeon . . "Provider Documentation" section prepared by Noah Thomas. .
--- NOTE | 2016-11-05 11:29 | [facility] Operative Report ---
Operative Report Operative Date Nov 05, 2016. Pre-Operative Diagnosis End-stage renal disease with a malfunctioning AV fistula Post-Operative Diagnosis End-stage renal disease with a malfunctioning AV fistula Procedure(s) Performed Fistulogram, Percutaneous Transluminal Angioplasty Venous, Moderate Concious Sedation 1059 to 1122 Surgeon Thomas Environmental Management Specialist Surgeon(s) Jose Haas Estimated Blood Loss 3ml Findings Patient had a pulsatile fistula at the beginning of the case. Pulsatility significantly improved following the procedure and the patient had a good thrill in the fistula. Patient had 2 areas of stenosis in the venous outflow. Patient also had a small area of aneurysmal dilation of the AV fistula. There was no central stenosis appreciated. Contrast dose 10 mGy Fluoroscopy time 2.2 minutes Contrast dose 30 mL. Fluids 20cc Specimens none Drains none Anesthesia Concious Sedation with local Complication(s) None Disposition Recovery Room / PACU Indications 46 year old male who has had trouble with his dialysis runs via his woody fistula Description of Procedure Patient was brought to the operating room and placed on the operating table in supine position with left upper extremity extended on a side board. The left upper extremity was prepped and draped in a sterile fashion. Moderate sedation was obtained using Versed and fentanyl. The patient was on a monitor for the entirety of the procedure. Percent lidocaine was used to anesthetize the area on the left upper extremity over the AV fistula. [place] micropuncture needle was used to access the fistula and a micropuncture sheath was placed over a wire. The micropuncture sheath was used to obtain a fistulogram showing 2 areas of stenosis just distal to the AV fistula and outflow. A 0.035 angled Glidewire was advanced across the areas of stenosis in the outflow of the AV fistula. A 6 x 40 mm [place] balloon was advanced over the wire and balloon angioplasty of the stenotic areas was completed. A follow-up fistulogram was completed showing a good result however some residual stenosis was noted. A 7 x 100 mm [place] balloon was then exchanged over the wire and advanced across the areas of stenosis and inflated. A fistulogram was completed showing a excellent result with no residual stenosis. The sheath and wire were removed and light pressure over the site of the access was applied. Patient tolerated the procedure well at the end of the case had a nice thrill AV fistula. Patient was taken to the recovery room with no complications. Dr. Thomas was present for the entirety of the case. I, Dr. Thomas was present and scrubbed for the entire procedure. I attest to the content of the Intraoperative Record and any orders documented therein. Any exceptions are noted below.
[2016-11-05 11:30] VITALS: BP 140/86; TEMP 37; O2SAT 98
[2016-11-05 12:00] VITALS: BP 120/78; TEMP 37.1; O2SAT 98
== END | disposition home or self-care (01) ==
LOC: C.ACU 08:16
PROVIDERS: ATTEND Surgery Vascular Surgery
DX: T82.590A Other mechanical complication of surgically created arteriovenous fistula, initial encounter (principal); E11.22 Type 2 diabetes mellitus with diabetic chronic kidney disease; N18.9 Chronic kidney disease, unspecified; Y83.2 Surgical operation with anastomosis, bypass or graft as the cause of abnormal reaction of the patient, or of later complication, without mention of misadventure at the time of the procedure; F17.210 Nicotine dependence, cigarettes, uncomplicated; Z79.899 Other long term (current) drug therapy

== ENCOUNTER 2016-11-30 07:47 | Emergency (ER) | payer OTHER, BC ==
[~2016-11-30] VITALS: Ht 177.8 cm; Wt 87.2 kg
[~2016-11-30 07:47] MED LIST changes: -BUPR200T2 PO; -CEFAZOLIN 1000MG/55 ML D5W IV SCH; -CLINDAMYCIN 600 MG/54 ML D5W IV ONE; -D5W AND 1/4NSS 1,000 ML IV SCH; -FENTANYL CITRATE INJ 50 MCG/1 ML 2 ML VIAL IV ONE; -FENTANYL CITRATE INJ 50 MCG/1 ML 2 ML VIAL ONE; -LIDO1CRE16 TOP; -LIDOCAINE HCL 1% 20 ML VIAL INJ ONE; -MIDAZOLAM HCL 1 MG/ML 2ML VIAL IV ONE; -MIDAZOLAM HCL 1 MG/ML 2ML VIAL ONE; -NURSING VERBAL MED ORDER ONE; -OPTIRAY 300 IV ONE; -TRAM-10 PO
[2016-11-30 07:54] VITALS: TEMP 36.5; Ht 177.8 cm; Wt 87.2 kg
[2016-11-30 08:02] VITALS: O2SAT 93
--- NOTE | 2016-11-30 08:16 | EMERGENCY ROOM VISIT NOTE ---
History Report prepared by Cece: Talisha Terry Under the Supervision of: Dr. Radha Garcia M.D. First contact with patient: 07:59 Chief Complaint: HYPOGLYCEMIA Stated Complaint: HYPOGLYCEMIA Nursing Triage Summary: pt arrived via bls from home for hyperglycemia, pt found by in chair minimally responsive. EMS arrived, BSG 35 at the time, pt given 1mg glucagon in pt LUE. Pt to have dialysis this AM in [place]. History of Present Illness The patient is a 51 year old male who presents to the Emergency Room with complaints of persistent hypoglycemia that began this morning prior to arrival. Per nursing notes, the patient arrives via BLS from home. Nursing notes report that the patient was found to have a blood glucose of 35. Nursing notes report that the patient was given 1 mg of Glucagon and then brought into the emergency department. The patient denies any recent illness. He reports being on dialysis, noting that he is scheduled for dialysis this morning. The patient states that it typically takes 30-45 minutes for him to respond to Glucagon. Source of History: patient, nursing staff Onset: this morning prior to arrival Position: other (global) Symptom Intensity: 35 Quality: other (hypoglycemia) Timing: other (persistent) Review of Systems See HPI for pertinent positives & negatives. A total of 10 systems reviewed and were otherwise negative. 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 (13) End-stage renal disease on hemodialysis (14) Gram-positive cocci bacteremia (15) History of diabetic ulcer of foot (16) Hyperparathyroidism due to renal insufficiency (17) Hypertension (18) Hypothyroidism (19) infected hematoma R thigh (20) Loss of sensation (21) multipel pna, sepsis (22) multipel pna, sepsis (23) Pneumonia (24) Pulmonary edema (25) Tracheomalacia (26) venous stenosis AVF Family History FH: heart disease Social History Smoking Status: Former Smoker Alcohol Use: none Drug Use: none Marital Status: Housing Status: lives with family Occupation Status: disabled Current/Historical Medications Scheduled Amlodipine Besylate (Norvasc), 2.5 MG PO 4XWK Atorvastatin (Atorvastatin Calcium), 40 MG PO DAILY Bupropion HCl (Bupropion HCl Sr), 150 MG PO DAILY Cinacalcet (Sensipar), 30 MG PO DAILY Clopidogrel Bisulfate (Clopidogrel), 75 MG PO Q2D Fluticasone Furoate-Vilanterol (Breo Ellipta 200-25 Mcg/INH), 1 PUFF INH DAILY Furosemide (Furosemide), 80 MG PO BID Gabapentin (Gabapentin), 100 MG PO BID Insulin Aspart (novoLOG INSULIN PUMP ), 1 EA N/A UD Levothyroxine Sodium (Levothyroxine Sodium), 112 MCG PO DAILY Metoprolol Tartrate (Lopressor) (Lopressor), 50 MG PO BID Sevelamer Carbonate (Renvela), 1,600 MG PO TIDM Sevelamer Carbonate (Renvela), 800 MG PO DAILY Umeclidinium Stout (Incruse Ellipta), 1 PUFF INH DAILY Allergies Coded Allergies: Tigecycline (Verified Allergy, Mild, ?RASH, 11/30/16) Penicillins (Verified Allergy, Unknown, PT HAS HAD MEFOXIN W/OUT A PROBLEM , 11/30/16) HAD MEFOXIN W/O PROBLEM Ciprofloxacin (Verified Adverse Reaction, Intermediate, nausea,vomiting, generalized weakness, 11/30/16) Morphine (Verified Adverse Reaction, Intermediate, TREMBLING,NAUSEA AND VOMITING, 11/30/16) Opioid Analgesics (Verified Adverse Reaction, Intermediate, "ALL RX PAIN MEDS CAUSE SEVERE NAUSEA", 11/30/16) Codeine (Verified Adverse Reaction, Mild, NAUSEA AND VOMITING, 11/30/16) QUESTIONABLE ALLERGY Levofloxacin (Verified Adverse Reaction, Mild, Cipro/Levaquin (IV & po) = N & V, 11/30/16) Oxycodone (Verified Adverse Reaction, Unknown, N/V/D, 11/30/16) SPOKE WITH PATIENT ON 07/29/15, DOES NOT REMEMBER ANY DIFFICULTY BREATHING JUST HIT HIM HARD. Physical Exam Vital Signs Date Time Temp Pulse Resp B/P (MAP) Pulse Ox O2 Delivery O2 Flow Rate FiO2 11/30/16 09:42 87 20 137/78 91 11/30/16 09:03 88 20 143/93 93 Nasal Cannula 4.0 11/30/16 08:06 79 11/30/16 08:02 93 Nasal Cannula 4.0 11/30/16 08:02 93 Nasal Cannula 4.0 11/30/16 07:54 36.5 80 20 153/94 92 Nasal Cannula 4.0 Physical Exam Vital signs reviewed. General: Chronically ill-appearing male, disheveled, diaphoretic. HEENT: No scleral icterus, PERRLA, neck supple. Atraumatic. Cardiovascular: high pitched ejection murmur. Regular rate and rhythm. Pulmonary: Coarse breath sounds bilaterally, normal work of breathing. Abdomen: Soft, nontender, nondistended, positive bowel sounds. Musculoskeletal: Post surgical changes noted in bilateral upper extremities, no peripheral edema. Neurologic: Patient awake alert and oriented x 3, full strength in all 4 extremities. Cranial nerves 2 through 12 grossly intact. Skin: Warm, dry, no rash Medical Decision & Procedures Laboratory Results Test 11/30/16 07:56 Bedside Glucose 120 mg/dl (70-99) Laboratory results per my review. ED Course 0811: Past medical records reviewed. The patient was evaluated in room A3. A complete history and physical examination was performed. 0950: Case Management assisted on providing arrangements to transport the patient to dialysis. He was well at the time of discharge. Medical Decision The patient is a 51 year old male who presents to the ED with complaints of hypoglycemia. Differentials include medication noncompliance, dietary noncompliance, dehydration, infectious etiology This patient was evaluated and appeared to be in no significant distress. He did receive glucagon prior to my evaluation. The patient was alert and speaking with me. He requested clean clothes and a shower which was provided. A breakfast tray was ordered for the patient. He was feeling well and was sent directly to dialysis for treatment. The patient is frequently hypoglycemic and contacted EMS regularly for low blood sugar/AMS episodes. He is comfortable with the plan and does not wish to be hospitalized. He'll follow-up with his PCP/endocrinology and return to the ER for worsening of symptoms or any medical concerns. Medication Reconcilliation Current Medication List: was personally reviewed by me Blood Pressure Screening Patient's blood pressure: Elevated blood pressure Blood pressure disposition: Elevated BP felt to be situational Impression Primary Impression: Hypoglycemia Scribe Attestation The scribe's documentation has been prepared under my direction and personally reviewed by me in its entirety. I confirm that the note above accurately reflects all work, treatment, procedures, and medical decision making performed by me. Departure Information Dispostion Home / Self-Care Referrals Devendra Bland M.D. (PCP) Forms HOME CARE DOCUMENTATION FORM, IMPORTANT VISIT INFORMATION, WORK / SCHOOL INSTRUCTIONS Patient Instructions [facility] Additional Instructions Diagnosis: Hypoglycemia You were given glucagon by EMS today. Continue to check your blood sugar frequently and eat frequent small meals. Drink plenty of clear fluids. Go directly to dialysis for your treatment today. Return to the emergency department for worsening of symptoms or any medical concerns.
[2016-11-30 09:42] VITALS: BP 137/78; PULSE 87; O2SAT 91
== END 2016-11-30 09:43 | disposition home or self-care (01) ==
LOC: EDBD 07:47 → C.EDA 07:49
DX: E10.649 Type 1 diabetes mellitus with hypoglycemia without coma (principal); E10.22 Type 1 diabetes mellitus with diabetic chronic kidney disease; N18.6 End stage renal disease; I12.0 Hypertensive chronic kidney disease with stage 5 chronic kidney disease or end stage renal disease; E10.21 Type 1 diabetes mellitus with diabetic nephropathy; D64.9 Anemia, unspecified; F31.9 Bipolar disorder, unspecified; J44.9 Chronic obstructive pulmonary disease, unspecified; N25.81 Secondary hyperparathyroidism of renal origin; J81.1 Chronic pulmonary edema; J39.8 Other specified diseases of upper respiratory tract; I87.1 Compression of vein; Z79.4 Long term (current) use of insulin; Z87.891 Personal history of nicotine dependence; Z99.2 Dependence on renal dialysis

== ENCOUNTER 2016-12-07 03:30 | Emergency (ER) | payer OTHER, BC ==
[~2016-12-07] VITALS: Ht 177.8 cm; Wt 84.0 kg
--- NOTE | 2016-12-07 03:40 | EMERGENCY ROOM VISIT NOTE ---
History Report prepared by Vivianibeleuterio: Judy Graham Under the Supervision of: Dr. Juan Bernal M.D. First contact with patient: 03:30 Chief Complaint: HYPOGLYCEMIA Stated Complaint: HYPOGLYCEMIA History of Present Illness The patient is a 51 year old male who presents to the Emergency Room with complaints of persistent hypoglycemia. He was brought to the ED via EMS. The patient reports he passed out in his wheelchair this evening, so his checked his blood sugar and called EMS. His first BSG was in the 30's. He was given Glucagon in the field which provided relief. The patient has an insulin pump in place. He complains of feeling cold and shaky here in the ED. He notes he has chronic breathing difficulty which remains unchanged. 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 A total of 10 systems reviewed and were otherwise negative. 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 (13) End-stage renal disease on hemodialysis (14) Gram-positive cocci bacteremia (15) History of diabetic ulcer of foot (16) Hyperparathyroidism due to renal insufficiency (17) Hypertension (18) Hypothyroidism (19) infected hematoma R thigh (20) Loss of sensation (21) multipel pna, sepsis (22) multipel pna, sepsis (23) Pneumonia (24) Pulmonary edema (25) Tracheomalacia (26) venous stenosis AVF Family History FH: heart disease Social History Smoking Status: Former Smoker Alcohol Use: none Drug Use: none Marital Status: Housing Status: lives with family Occupation Status: disabled Current/Historical Medications Scheduled Amlodipine Besylate (Norvasc), 2.5 MG PO 4XWK Atorvastatin (Atorvastatin Calcium), 40 MG PO DAILY Bupropion Hcl (Wellbutrin Sr), 200 MG PO DAILY Cinacalcet (Sensipar), 30 MG PO DAILY Clopidogrel Bisulfate (Clopidogrel), 75 MG PO Q2D Fluticasone Furoate-Vilanterol (Breo Ellipta 200-25 Mcg/INH), 1 PUFF INH DAILY Furosemide (Furosemide), 80 MG PO BID Gabapentin (Gabapentin), 100 MG PO BID Insulin Aspart (novoLOG INSULIN PUMP ), 1 EA N/A UD Levothyroxine Sodium (Levothyroxine Sodium), 112 MCG PO DAILY Metoprolol Tartrate (Lopressor) (Lopressor), 50 MG PO BID Sevelamer Carbonate (Renvela), 1,600 MG PO TIDM Sevelamer Carbonate (Renvela), 800 MG PO DAILY Umeclidinium [place] (Incruse Ellipta), 1 PUFF INH DAILY Allergies Coded Allergies: Tigecycline (Verified Allergy, Mild, ?RASH, 12/07/16) Penicillins (Verified Allergy, Unknown, PT HAS HAD MEFOXIN W/OUT A PROBLEM , 12/07/16) HAD MEFOXIN W/O PROBLEM Ciprofloxacin (Verified Adverse Reaction, Intermediate, nausea,vomiting, generalized weakness, 12/07/16) Morphine (Verified Adverse Reaction, Intermediate, TREMBLING,NAUSEA AND VOMITING, 12/07/16) Opioid Analgesics (Verified Adverse Reaction, Intermediate, "ALL RX PAIN MEDS CAUSE SEVERE NAUSEA", 12/07/16) Codeine (Verified Adverse Reaction, Mild, NAUSEA AND VOMITING, 12/07/16) QUESTIONABLE ALLERGY Levofloxacin (Verified Adverse Reaction, Mild, Cipro/Levaquin (IV & po) = N & V, 12/07/16) Oxycodone (Verified Adverse Reaction, Unknown, N/V/D, 12/07/16) SPOKE WITH PATIENT ON 07/29/15, DOES NOT REMEMBER ANY DIFFICULTY BREATHING JUST HIT HIM HARD. Physical Exam Vital Signs Date Time Temp Pulse Resp B/P (MAP) Pulse Ox O2 Delivery O2 Flow Rate FiO2 12/07/16 05:45 80 16 160/97 98 Room Air 12/07/16 03:44 36.5 64 20 177/106 98 Room Air Physical Exam GENERAL: Patient is chronically unwell appearing and in minimal distress. HEENT: No acute trauma, normocephalic atraumatic, mucous membranes moist, no nasal congestion, no scleral icterus. NECK: No stridor, no adenopathy, no meningismus, trachea is midline. LUNGS: Junky breath sounds though out. Non-productive cough, states chronic. HEART: Regular rate and rhythm. No murmurs, rubs, gallops appreciated. ABDOMEN: Soft, nontender, bowel sounds positive, no masses appreciated, no peritonitis. BACK: No midline tenderness, no CVA tenderness EXTREMITIES: Normal motion all extremities, no cyanosis, no edema. NEUROLOGIC: Alert and oriented, no acute motor or sensory deficits, no focal weakness, cranial nerves grossly intact. SKIN: No rash, no jaundice, no diaphoresis. Medical Decision & Procedures Laboratory Results Test 12/07/16 06:15 Bedside Glucose 240 mg/dl (70-99) Laboratory results as reviewed by me. ED Course 0332: The patient was evaluated in room B6. A complete history and physical exam was performed. 30: I reevaluated the patient. He feels fine and would like to go home. His last BSG was 200. I discussed her results and discharge instructions and she verbalized complete understanding and agreement. Medical Decision 51 yr old male well known to department for frequent issues with hypoglycemia. Hypoglycemic this morning at home at which time EMS arrived, gave IM glucagon and patient now back to baseline. BSGs OK and eating food. Stable after several hours and wishes to go home. Declines any other testing than BSG stating this is his normal episode of hypoglycemia. Will follow up with his PCP. Well aware of things to monitor for. Medication Reconcilliation Current Medication List: was personally reviewed by me Blood Pressure Screening Patient's blood pressure: Elevated blood pressure Blood pressure disposition: Referred to PCP Impression Primary Impression: Hypoglycemia Additional Impression: Hypertension Scribe Attestation The scribe's documentation has been prepared under my direction and personally reviewed by me in its entirety. I confirm that the note above accurately reflects all work, treatment, procedures, and medical decision making performed by me. Departure Information Dispostion Home / Self-Care Referrals Devendra Bland M.D. (PCP) Patient Instructions ED Diabetes Hypoglycemia Insulin React, My [facility] Additional Instructions Your blood pressure was elevated during this visit. This is quite common in many people who are being evaluated in the Emergency Department for many reasons. However, it is important that you have your Primary Care Provider recheck your blood pressure and discuss whether treatment will be needed. senior living elevated blood pressure can lead to strokes, heart attacks, kidney failure amongst other medical issues. If you develop severe headaches, chest pain, weakness in arms or legs, or other concerning symptoms call 911. Problem Qualifiers
[2016-12-07 03:44] VITALS: TEMP 36.5; Ht 177.8 cm; Wt 84.0 kg
[2016-12-07] MEDS ORDERED: BUPR200T2 PO (04:07)
[2016-12-07 05:45] VITALS: BP 160/97; PULSE 80; O2SAT 98
== END 2016-12-07 06:37 | disposition home or self-care (01) ==
LOC: C.EDB 03:30
DX: E10.649 Type 1 diabetes mellitus with hypoglycemia without coma (principal); Z96.41 Presence of insulin pump (external) (internal); F31.9 Bipolar disorder, unspecified; N18.6 End stage renal disease; I12.0 Hypertensive chronic kidney disease with stage 5 chronic kidney disease or end stage renal disease; E10.40 Type 1 diabetes mellitus with diabetic neuropathy, unspecified; Z99.2 Dependence on renal dialysis; N25.81 Secondary hyperparathyroidism of renal origin; E03.9 Hypothyroidism, unspecified; Z87.01 Personal history of pneumonia (recurrent); Z87.891 Personal history of nicotine dependence; Z79.899 Other long term (current) drug therapy

== ENCOUNTER 2016-12-14 16:37 | Emergency (ER) | payer OTHER, BC ==
[~2016-12-14 16:37] MED LIST changes: +BUPR200T2 PO; -WLLSR150 PO
[2016-12-14 16:51] VITALS: TEMP 36.4
--- NOTE | 2016-12-14 17:16 | EMERGENCY ROOM VISIT NOTE ---
History Report prepared by Cece: Ashley Quinones Under the Supervision of: Dr. Denny Fisher M.D. 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 The patient has a history of insulin dependent diabetes. The patient was found by his son on the toilet with a blood sugar of 23. The patient was brought to the ED by EMS. He was given glucagon in route. He does not want to be here. He was diaphoretic. He denies any symptoms besides low blood sugar. 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 Review of Systems See HPI for pertinent positives & negatives. A total of 10 systems reviewed and were otherwise negative. 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 (13) End-stage renal disease on hemodialysis (14) Gram-positive cocci bacteremia (15) History of diabetic ulcer of foot (16) Hyperparathyroidism due to renal insufficiency (17) Hypertension (18) Hypothyroidism (19) infected hematoma R thigh (20) Loss of sensation (21) multipel pna, sepsis (22) multipel pna, sepsis (23) Pneumonia (24) Pulmonary edema (25) Tracheomalacia (26) venous stenosis AVF Family History FH: heart disease Social History Smoking Status: Never Smoker Alcohol Use: none Drug Use: none Marital Status: Housing Status: lives with family Occupation Status: disabled Current/Historical Medications Scheduled Amlodipine Besylate (Norvasc), 2.5 MG PO 4XWK Atorvastatin (Atorvastatin Calcium), 40 MG PO DAILY Bupropion Hcl (Wellbutrin Sr), 200 MG PO DAILY Cinacalcet (Sensipar), 30 MG PO DAILY Clopidogrel Bisulfate (Clopidogrel), 75 MG PO Q2D Fluticasone Furoate-Vilanterol (Breo Ellipta 200-25 Mcg/INH), 1 PUFF INH DAILY Furosemide (Furosemide), 80 MG PO BID Gabapentin (Gabapentin), 100 MG PO BID Insulin Aspart (novoLOG INSULIN PUMP ), 1 EA N/A UD Levothyroxine Sodium (Levothyroxine Sodium), 112 MCG PO DAILY Metoprolol Tartrate (Lopressor) (Lopressor), 50 MG PO BID Sevelamer Carbonate (Renvela), 1,600 MG PO TIDM Umeclidinium [place] (Incruse Ellipta), 1 PUFF INH DAILY Allergies Coded Allergies: Tigecycline (Verified Allergy, Mild, ?RASH, 12/14/16) Penicillins (Verified Allergy, Unknown, PT HAS HAD MEFOXIN W/OUT A PROBLEM , 12/14/16) HAD MEFOXIN W/O PROBLEM Ciprofloxacin (Verified Adverse Reaction, Intermediate, nausea,vomiting, generalized weakness, 12/14/16) Morphine (Verified Adverse Reaction, Intermediate, TREMBLING,NAUSEA AND VOMITING, 12/14/16) Opioid Analgesics (Verified Adverse Reaction, Intermediate, "ALL RX PAIN MEDS CAUSE SEVERE NAUSEA", 12/14/16) Codeine (Verified Adverse Reaction, Mild, NAUSEA AND VOMITING, 12/14/16) QUESTIONABLE ALLERGY Levofloxacin (Verified Adverse Reaction, Mild, Cipro/Levaquin (IV & po) = N & V, 12/14/16) Oxycodone (Verified Adverse Reaction, Unknown, N/V/D, 12/14/16) SPOKE WITH PATIENT ON 07/29/15, DOES NOT REMEMBER ANY DIFFICULTY BREATHING JUST HIT HIM HARD. Physical Exam Vital Signs Date Time Temp Pulse Resp B/P (MAP) Pulse Ox O2 Delivery O2 Flow Rate FiO2 12/14/16 18:36 77 16 102/75 92 12/14/16 16:51 36.4 73 18 132/70 98 Physical Exam GENERAL: Patient is a healthy-appearing well-nourished male HEAD: Normocephalic atraumatic EYES: Ocular movements intact pupils equal and react to light OROPHARYNX mucous membranes are moist no exudates present no erythema or edema present NECK: Supple no nuchal rigidity CHEST: Good equal expansion LUNGS: Clear and equal to auscultation CARDIAC: Normal S1 and S2 ABDOMEN: Soft nontender no guarding BACK: No CVA tenderness EXTREMITIES: No pain upon palpation normal muscle strength in all groups no clubbing cyanosis or edema fistula in the left arm NEURO: Patient is following commands and answering questions appropriately. Alert and oriented x3 Cranial Nerves 2-12 grossly intact Medical Decision & Procedures Laboratory Results Test 12/14/16 18:35 Bedside Glucose 218 mg/dl (70-99) Labs reviewed by ED physician. ED Course 164: Past medical records reviewed. The patient was evaluated in room C11B. A complete history and physical examination was performed. 1747: I reevaluated the patient. He is feeling better. 1839: Upon reexamination the patient is resting comfortably. I discussed results and treatment plan with the patient. He verbalizes agreement and understanding. The patient is ready for discharge. Medical Decision Differential diagnosis: Etiologies such as metabolic, infection, hypo/hyperglycemia, electrolyte abnormalities, cardiac sources, intracerebral event, toxicologic, neurologic, as well as others were entertained. This is a 51-year-old male who presents emergency department complaining of low blood sugar. The patient is angry is here and has not consented to an exam or laboratory work. He was given food. He wishes to be discharged home. I feel this is reasonable as his blood sugars continue to trend up. Medication Reconcilliation Current Medication List: was personally reviewed by me Blood Pressure Screening Patient's blood pressure: Normal blood pressure Blood pressure disposition: Did not require urgent referral Impression Primary Impression: Hypoglycemia Scribe Attestation The scribe's documentation has been prepared under my direction and personally reviewed by me in its entirety. I confirm that the note above accurately reflects all work, treatment, procedures, and medical decision making performed by me. Departure Information Dispostion Home / Self-Care Referrals Devendra Bland M.D. (PCP) Forms HOME CARE DOCUMENTATION FORM, IMPORTANT VISIT INFORMATION, WORK / SCHOOL INSTRUCTIONS Patient Instructions Hypoglycemia, My [facility] Additional Instructions Increase Protein intake You have been examined and treated today on an emergency basis only. This is not a substitute for, or an effort to provide, complete comprehensive medical care. It is impossible to recognize and treat all injuries or illnesses in a single emergency department visit. It is therefore important that you follow up closely with Dr Bland. Call as soon as possible for an appointment. Thank you for your time and consideration. I look forward to speaking with you again soon. Please don't hesitate to call us if you have any questions.
[2016-12-14 18:36] VITALS: BP 102/75; PULSE 77; O2SAT 92
== END 2016-12-14 18:44 | disposition home or self-care (01) ==
LOC: EDBD 16:37 → C.EDC 16:38
DX: E16.2 Hypoglycemia, unspecified (principal); D64.9 Anemia, unspecified; I10 Essential (primary) hypertension; E10.9 Type 1 diabetes mellitus without complications; N18.6 End stage renal disease; Z99.2 Dependence on renal dialysis; E03.9 Hypothyroidism, unspecified; Z82.49 Family history of ischemic heart disease and other diseases of the circulatory system; Z79.4 Long term (current) use of insulin

== ENCOUNTER 2016-12-17 14:27 | Emergency (ER) | payer OTHER, BC ==
[~2016-12-17] VITALS: Ht 177.8 cm; Wt 84.0 kg
[2016-12-17 14:36] VITALS: TEMP 36.6; Ht 177.8 cm; Wt 84.0 kg
--- NOTE | 2016-12-17 15:08 | EMERGENCY ROOM VISIT NOTE ---
History First contact with patient: 14:52 Chief Complaint: HYPOGLYCEMIA Stated Complaint: HYPOGLYCEMIA Nursing Triage Summary: PT HERE VIA ALS FROM HOME , FOUND PT UNRESP PER EMS BSG READ LOW, WAS GIVEN D10 IN ROUTE. PT WAS TOO COMBATIVE IN ROUTE TO RECHECK SUGAR. PT DIAPHORETIC UPON ARRIVAL, ALERT AND ORIENTED UPON ARRIVAL. PT STATES PAIN ALL OVER. History of Present Illness The patient is a 51 year old male who presents to the Emergency Room with complaints of hypoglycemia. Per EMS, the patient was found unresponsive by his and she checked his blood sugar and the meter read "low." She called 911 and the patient was given D10 en route. The patient became combative and diaphoretic. He states he is feeling much better at this time. He frequently has low blood sugars and saw his primary care provider yesterday regarding this. He recently changed his pump site due to hyperglycemia and feels this is what caused his hypoglycemia today. The patient denies any recent illnesses. He is a dialysis patient and is scheduled for dialysis tomorrow. He denies missing any of his recent dialysis appointments. He denies any chest pain, shortness of breath or headache. Review of Systems A complete 10 point review of systems was reviewed with the patient with pertinent positives and negatives as per history of present illness. All else were negative. 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 (13) End-stage renal disease on hemodialysis (14) Gram-positive cocci bacteremia (15) History of diabetic ulcer of foot (16) Hyperparathyroidism due to renal insufficiency (17) Hypertension (18) Hypothyroidism (19) infected hematoma R thigh (20) Loss of sensation (21) multipel pna, sepsis (22) multipel pna, sepsis (23) Pneumonia (24) Pulmonary edema (25) Tracheomalacia (26) venous stenosis AVF Family History FH: heart disease Social History Smoking Status: Former Smoker Alcohol Use: none Drug Use: none Marital Status: Housing Status: lives with family Occupation Status: disabled Current/Historical Medications Scheduled Amlodipine Besylate (Norvasc), 2.5 MG PO 4XWK Atorvastatin (Atorvastatin Calcium), 40 MG PO DAILY Bupropion Hcl (Wellbutrin Sr), 200 MG PO DAILY Cinacalcet (Sensipar), 30 MG PO DAILY Clopidogrel Bisulfate (Clopidogrel), 75 MG PO Q2D Fluticasone Furoate-Vilanterol (Breo Ellipta 200-25 Mcg/INH), 1 PUFF INH DAILY Furosemide (Furosemide), 80 MG PO BID Gabapentin (Gabapentin), 100 MG PO BID Insulin Aspart (novoLOG INSULIN PUMP ), 1 EA N/A UD Levothyroxine Sodium (Levothyroxine Sodium), 112 MCG PO DAILY Metoprolol Tartrate (Lopressor) (Lopressor), 50 MG PO BID Sevelamer Carbonate (Renvela), 1,600 MG PO TIDM Umeclidinium [place] (Incruse Ellipta), 1 PUFF INH DAILY Physical Exam Vital Signs Date Time Temp Pulse Resp B/P (MAP) Pulse Ox O2 Delivery O2 Flow Rate FiO2 12/17/16 17:49 83 151/89 95 12/17/16 16:26 73 176/105 98 Room Air 12/17/16 14:36 36.6 70 16 154/100 97 Room Air Physical Exam VITALS: Vitals are noted on the nurse's note and reviewed by myself. Vital signs stable. GENERAL: This is a 51-year-old male, sitting up in bed, in no acute distress, well-developed well-nourished. SKIN: The skin was without rashes, erythema, edema, or bruising. HEAD: Normocephalic atraumatic. EARS: External auditory canals clear, tympanic membranes pearly ozuna without erythema or effusion bilaterally. EYES: Pupils equal round and reactive to light and accommodation. Conjunctivae without injection, sclerae without icterus. Extraocular movements intact. MOUTH: Mucous membranes moist. Tonsils are not enlarged. Pharynx without erythema or exudate. NECK: Supple without nuchal rigidity. HEART: Regular rate and rhythm, systolic murmur noted. LUNGS: Clear to auscultation bilaterally without wheezes, rales or rhonchi. ABDOMEN: Soft, nondistended and nontender. MUSCULOSKELETAL: Full range of motion throughout. NEURO: Patient was alert and oriented to person place and time. Medical Decision & Procedures Laboratory Results Test 12/17/16 17:26 Bedside Glucose 191 mg/dl (70-99) Medications Administered Medications (Trade) Dose Ordered Sig/Etta Route Start Time Stop Time Status Last Admin Dose Admin Glucagon (Glucagon Inj) 1 mg NOW STAT SQ 12/17/16 15:51 12/17/16 15:52 DC 12/17/16 15:59 1 MG ED Course The patient was evaluated as above. A meal tray was ordered. Prior to the patient receiving a meal tray, he became diaphoretic. Blood sugar was rechecked and was 29. Glucagon was given. Patient was reevaluated and was feeling better. Blood sugar was rechecked and was 58. Patient was encouraged to eat and drink juice. Patient was reevaluated and felt much better. Blood sugar was rechecked and was 165. Blood sugar was rechecked prior to discharge and was 191. Discharge instructions were reviewed with the patient. The patient verbalized understanding of my assessment and treatment plan and was discharged home in good condition. Medical Decision Differential diagnosis includes hypoglycemia, infection, electrolyte abnormal ability, neurological disorder, among others. The patient is a 51-year-old male who presents today complaining of hypoglycemia. Patient is well-known to this emergency department and is seen here for hypoglycemia frequently. He reports that this happens frequently to him and the episode today is not different from previous episodes. On my evaluation, the patient had no complaints and was upset that he was transferred here by EMS. Blood glucose did initially drop, however after the patient had something to eat this increased and the patient remained stable for several hours. I had a very lengthy discussion with the patient regarding his frequent hypoglycemia. The patient states he changed his insulin pump site today and he feels that this causes him to become hypoglycemic. The patient does admit that he has spoken to Dr. Savage, his automation tender regarding this and was told that he over boluses himself. The patient reports to me that he feels his best when his blood sugar is 60-80, and he feels that if his blood sugar is over 100 that it is too high. The patient has been told multiple times that this is dangerous and that he needs to allow his blood sugar to run higher. Recently, the [facility] pharmacist had a conversation with the patient regarding the same things. I emphasized this with the patient and advised him to allow his blood sugars run 150-200 in order to avoid these hypoglycemic episodes. The patient states that he will try to do this, but it is very difficult for him to do mentally. He is seeing a psychologist regarding this and thinks this will help. I encouraged him to follow up with his automation tender and primary care provider regarding his hyperglycemia. Based on the patient's presentation and work up, I feel the patient is stable for outpatient treatment. The patient was educated to return to the emergency department for any worsening of their current condition or new/concerning symptoms. He will follow up with his PCP and automation tender. Medication Reconcilliation Current Medication List: was personally reviewed by me Blood Pressure Screening Patient's blood pressure: Elevated blood pressure Blood pressure disposition: Elevated BP felt to be situational Impression Primary Impression: Hypoglycemia Departure Information Dispostion Home / Self-Care Condition GOOD Referrals Devendra Bland M.D. (PCP) Patient Instructions My [facility] Additional Instructions Allow your blood sugar to run high (around 200) today and for the next few days. Follow-up with Dr. Savage to discuss your insulin dosing.
[2016-12-17] MEDS ORDERED: GLUCAGON FOR INJ 1 MG VIAL SQ STA (15:51)
[2016-12-17] MEDS ORDERED: GLUCAGON FOR INJ 1 MG VIAL ONE (15:52)
[2016-12-17 17:49] VITALS: BP 151/89; PULSE 83; O2SAT 95
== END 2016-12-17 17:50 | disposition home or self-care (01) ==
LOC: EDBD 14:27 → C.EDA 14:28
DX: E16.2 Hypoglycemia, unspecified (principal); E10.21 Type 1 diabetes mellitus with diabetic nephropathy; I12.0 Hypertensive chronic kidney disease with stage 5 chronic kidney disease or end stage renal disease; N18.6 End stage renal disease; Z99.2 Dependence on renal dialysis; N25.81 Secondary hyperparathyroidism of renal origin; E03.9 Hypothyroidism, unspecified; F31.9 Bipolar disorder, unspecified; J44.9 Chronic obstructive pulmonary disease, unspecified; Z86.19 Personal history of other infectious and parasitic diseases; Z87.891 Personal history of nicotine dependence; Z79.4 Long term (current) use of insulin; Z79.899 Other long term (current) drug therapy; Z82.49 Family history of ischemic heart disease and other diseases of the circulatory system

== ENCOUNTER 2017-02-19 12:52 | Inpatient (IN) | payer OTHER, BC ==
[~2017-02-19] VITALS: Ht 177.8 cm; Wt 87.0 kg
[2017-02-19] MEDS ORDERED: ALBUT/IPRATROP 3MG/0.5MG NEB 3 ML VIAL INH STA ×2 (13:10→16:03)
--- NOTE | 2017-02-19 13:35 | EMERGENCY ROOM VISIT NOTE ---
History First contact with patient: 13:00 Chief Complaint: SYNCOPE Stated Complaint: SYNCOPE/COUGH Nursing Triage Summary: Patient was at dialysis treatment today. Patient completed 3 hours of his 4 hour dialysis treatment. During dialysis treatment patient had multiple syncopal episodes while coughing. + LOC. No falls. Patient reports that he has had a cough for the past 2-3 weeks. BSG 102 Denies chest pain or shortness of breath. History of Present Illness The patient is a 51 year old male who presents to the Emergency Room with complaints of cough. Patient was at his routine hemodialysis treatment today, he reports that his blood pressure become low and they were laying him down flat , which he states triggered him to have coughing fits, and he reportedly blacked out four times. He is unsure how long the episodes lasted, but states "probably only a few seconds." He believes his episodes today were related to the coughing fits. He denies any syncope or falls at home. He reports that he has had this cough for the past 3 weeks, states he saw his PCP who told him that it was most likely a viral bronchitis. He has not had any recent chest x- rays, he is not on any antibiotics currently. He states that he has a nebulizer at home, but has not been using it. Cough has been productive of white mucus, he denies any hemoptysis. He denies any chest pain, increased shortness of breath from baseline, fevers or chills, abdominal pain, vomiting or diarrhea, blood in the stool, rash. Review of Systems A complete 10 point review of systems was reviewed with the patient with pertinent positives and negatives as per history of present illness. All else were negative. 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 (14) End-stage renal disease on hemodialysis (15) ESRD (end stage renal disease) (16) Gram-positive cocci bacteremia (17) History of diabetic ulcer of foot (18) Hyperparathyroidism due to renal insufficiency (19) Hypertension (20) Hypothyroidism (21) infected hematoma R thigh (22) Loss of sensation (23) multipel pna, sepsis (24) multipel pna, sepsis (25) Pneumonia (26) Pulmonary edema (27) Tracheomalacia (28) venous stenosis AVF Family History FH: heart disease Social History Smoking Status: Former Smoker Alcohol Use: none Drug Use: none Marital Status: Housing Status: lives with family Occupation Status: disabled Current/Historical Medications Scheduled Amlodipine Besylate (Norvasc), 2.5 MG PO 4XWK Atorvastatin (Atorvastatin Calcium), 40 MG PO DAILY Bupropion Hcl (Wellbutrin Sr), 200 MG PO DAILY Cinacalcet (Sensipar), 30 MG PO DAILY Clopidogrel Bisulfate (Clopidogrel), 75 MG PO Q2D Fluticasone Furoate-Vilanterol (Breo Ellipta 200-25 Mcg/INH), 1 PUFF INH DAILY Furosemide (Furosemide), 80 MG PO BID Gabapentin (Gabapentin), 100 MG PO BID Insulin Aspart (novoLOG INSULIN PUMP ), 1 EA N/A UD Levothyroxine Sodium (Levothyroxine Sodium), 112 MCG PO DAILY Metoprolol Tartrate (Lopressor) (Lopressor), 50 MG PO BID Sevelamer Carbonate (Renvela), 1,600 MG PO TIDM Umeclidinium Jarreau (Incruse Ellipta), 1 PUFF INH DAILY Allergies Reviewed in chart Physical Exam Vital Signs Date Time Temp Pulse Resp B/P (MAP) Pulse Ox O2 Delivery O2 Flow Rate FiO2 02/19/17 18:24 85 116/95 90 02/19/17 16:39 74 122/69 92 Room Air 02/19/17 14:37 81 103/63 96 Room Air 02/19/17 13:43 96 Room Air 02/19/17 13:09 79 02/19/17 13:05 96 Room Air 02/19/17 12:59 37.1 76 103/64 96 Room Air 02/19/17 12:48 107 Physical Exam CONSTITUTIONAL: No acute distress. Speaks in full sentences. Alert and oriented X 4 with normal affect. HEENT: Normocephalic, atraumatic. Pupils equal, round and reactive to light, EOMI. TMs normal. Pharynx normal. Tacky mucous membranes. NECK: Supple, full active range of motion without discomfort. RESPIRATORY: Wet, congested sounding cough. Bilateral inspiratory and expiratory wheezes and rhonchi. No stridor. Equal expansion bilaterally. CARDIOVASCULAR: Regular rate and rhythm, 4/6 loud systolic blowing murmur. Normal peripheral perfusion. No edema. Left forearm AV fistula, + thrill, + bruit. GASTROINTESTINAL: Soft, nontender, nondistended, rotund. Bowel sounds present in all quadrants. MUSCULOSKELETAL: Full range of motion of all joints without discomfort. INTEGUMENTARY: No rash or other significant dermatologic conditions noted. NEUROLOGIC: Cranial nerves II-XII grossly intact. No focal neurologic deficits noted. Moves all extremities with good strength, normal sensation, normal speech. Medical Decision & Procedures ER Provider Diagnostic Interpretation: CHEST 2 VIEWS ROUTINE HISTORY: 51 years-old Male cough, wheezing, eval PNA acute cough with wheezing COMPARISON: Chest radiograph 09/02/2016 TECHNIQUE: PA and lateral views of the chest FINDINGS: Cardiac silhouette is moderately enlarged, unchanged. Atherosclerosis of the aorta. Coarse interstitial opacities are present within the perihilar distributions and bilateral lung bases, similar to slightly improved from prior study. No overt pulmonary edema. No pneumothorax or lobar airspace consolidation. Blunting of the costophrenic angles suggests trace effusions or atelectasis, unchanged. Ductal scoliosis of the lower thoracic spine. Multilevel degenerative changes. IMPRESSION: 1. No acute cardiopulmonary process. 2. Diffuse interstitial coarsening is again seen, greatest within the perihilar distributions and lung bases, left greater than right. 3. Blunting of the costophrenic angles is unchanged suggesting scarring/atelectasis or trace effusions. Laboratory Results 02/19/17 13:40 Red Blood Count 3.51, Mean Corpuscular Volume 104.8, Mean Corpuscular Hemoglobin 35.0, Mean Corpuscular Hemoglobin Concent 33.4, Mean Platelet Volume 10.4, Neutrophils (%) (Auto) 64.2, Lymphocytes (%) (Auto) 17.8, Monocytes (%) ( Auto) 13.4, Eosinophils (%) (Auto) 3.6, Basophils (%) (Auto) 0.7, Neutrophils # (Auto) 5.72, Lymphocytes # (Auto) 1.59, Monocytes # (Auto) 1.19, Eosinophils # ( Auto) 0.32, Basophils # (Auto) 0.06 02/19/17 13:40 Test 02/19/17 13:40 02/19/17 18:44 02/19/17 19:14 White Blood Count 8.91 K/uL (4.8-10.8) Red Blood Count 3.51 M/uL (4.7-6.1) Hemoglobin 12.3 g/dL (14.0-18.0) Hematocrit 36.8 % (42-52) Mean Corpuscular Volume 104.8 fL (80-100) Mean Corpuscular Hemoglobin 35.0 pg (25-34) Mean Corpuscular Hemoglobin Concent 33.4 g/dl (32-36) Platelet Count 189 K/uL (130-400) Mean Platelet Volume 10.4 fL (7.4-10.4) Neutrophils (%) (Auto) 64.2 % Lymphocytes (%) (Auto) 17.8 % Monocytes (%) (Auto) 13.4 % Eosinophils (%) (Auto) 3.6 % Basophils (%) (Auto) 0.7 % Neutrophils # (Auto) 5.72 K/uL (1.4-6.5) Lymphocytes # (Auto) 1.59 K/uL (1.2-3.4) Monocytes # (Auto) 1.19 K/uL (0.11-0.59) Eosinophils # (Auto) 0.32 K/uL (0-0.5) Basophils # (Auto) 0.06 K/uL (0-0.2) RDW Standard Deviation 58.9 fL (36.4-46.3) RDW Coefficient of Variation 15.4 % (11.5-14.5) Immature Granulocyte % (Auto) 0.3 % Immature Granulocyte # (Auto) 0.03 K/uL (0.00-0.02) Anion Gap 7.0 mmol/L (3-11) Est Creatinine Clear Calc Drug Dose 19.7 ml/min Estimated GFR () 16.0 Estimated GFR (Non- 13.8 BUN/Creatinine Ratio 4.0 (10-20) Lactic Acid Level 1.1 mmol/L (0.4-2.0) Calcium Level 8.1 mg/dl (8.5-10.1) Total Bilirubin 0.9 mg/dl (0.2-1) Aspartate Amino Transf (AST/SGOT) 22 U/L (15-37) Alanine Aminotransferase (ALT/SGPT) 24 U/L (12-78) Alkaline Phosphatase 145 U/L (45-117) Troponin I 0.037 ng/ml (0-0.045) Total Protein 7.6 gm/dl (6.4-8.2) Albumin 3.3 gm/dl (3.4-5.0) Globulin 4.3 gm/dl (2.5-4.0) Albumin/Globulin Ratio 0.8 (0.9-2) Bedside Glucose 233 mg/dl (70-99) Medications Administered Medications (Trade) Dose Ordered Sig/Etta Route Start Time Stop Time Status Last Admin Dose Admin Albuterol/ Ipratropium (Duoneb) 3 ml NOW STAT INH 02/19/17 13:10 02/19/17 13:14 DC 02/19/17 13:10 3 ML Albuterol/ Ipratropium (Duoneb) 3 ml NOW STAT INH 02/19/17 16:03 02/19/17 16:04 DC 02/19/17 16:03 3 ML Medical Decision CC: Patient presenting with complaint of cough, syncope Interpretation of Labs: No leukocytosis, mild anemia (similar to baseline), mild hypokalemia and hypochloremia, hypercarbia, no other significant left eyelid abnormalities BUN/creatinine 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 Troponin negative. Differential Diagnosis: Includes, but not limited to vasovagal syncope, orthostatic syncope, ACS, dysrhythmia, respiratory arrest, mucous plug, bronchospasm, electrolyte abnormality, bronchitis, pneumonia, among others. Medication Reconciliation: I attest that I have personally reviewed the patient' s current medication list. Vital signs review: I reviewed the patient's vital signs and interpret them as follows: T: Afebrile; BP: Normotensive; HR: Within normal limits; RR: Within normal limits; Pulse Ox: Within normal limits on room air. Blood pressure screening: The patient was found to have normal blood pressure on screening and does not require follow-up for repeat blood pressure check. Summary: Patient was evaluated at bedside, history and physical exam performed. Patient is alert and oriented, in no acute distress, speaking in full sentences with no signs of respiratory distress. He is noted to have a very wet, congested sounding cough. Lung sounds with diffuse inspiratory/expiratory wheezing and rhonchi. Neuro exam is normal with no focal deficits. Orders were placed at bedside for labs, lactic acid, blood cultures, EKG, chest x-ray to evaluate for cardiopulmonary disease. Patient discussed with Dr. Lewis, who agrees with my assessment and plan. Labs reviewed as above, no significant abnormalities noted. Chest x-ray does not show any definite pneumonia, and appears grossly unchanged from previous imaging. Patient noted to drop sats to 87% with a good waveform during my evaluation of him on two separate occasions, placed on nasal cannula oxygen. I spoke on the phone with Makenna, the patient's dialysis nurse today, who tells me the patient has four episodes of coughing fits, after which he would become unresponsive for a few seconds and stop breathing. She states that his blood pressure and blood sugar were within normal limits for him during all of these episodes, but he did become unresponsive for a few seconds after the coughing. She reports the fourth time it happened, he coughed up a large amount of mucus. Patient has not had any further syncopal episodes, but continues to have a significant congested cough, and in setting of hypoxia, I feel the patient warrants admission for further evaluation. I spoke with Dr. Cline, hospitalist, who agrees to evaluate the patient for admission. Deferring to inpatient team regarding antibiotics, given no definite pneumonia on x-ray and patient's many allergies to antibiotics. Patient reassessed multiple times throughout ED stay, he reports he continues to feel about the same. He has been noted to drop his sats and has been placed on oxygen. His vital signs have been otherwise stable. I updated the patient on all results and plan for admission to the hospital, he verbalized understanding and is agreeable to this plan. The patient was stable at time of admission. Head Trauma GCS Score: 15 Medication Reconcilliation Current Medication List: was personally reviewed by me Blood Pressure Screening Patient's blood pressure: Normal blood pressure Impression Primary Impression: Syncope Additional Impression: Bronchitis Departure Information Dispostion Admitted as an inpatient Condition FAIR Referrals Devendra Bland M.D. (PCP) Patient Instructions My [facility] Problem Qualifiers Primary Impression: Syncope Syncope type: unspecified Qualified Codes: R55 - Syncope and collapse
[2017-02-19 14:01] LABS: BASO % 0.7 %; BASO ABS # 0.06 K/uL (0-0.2); COMPLETE YES; EOS % 3.6 %; HEMATOCRIT 36.8 % (42-52); IG% 0.3 %; LYMPH % 17.8 %; LYMPH ABS # 1.59 K/uL (1.2-3.4); MEAN CELL VOLUME 104.8 fL (80-100); MEAN CORPUSCULAR HGB CONC 33.4 g/dl (32-36); MEAN PLATELET VOLUME 10.4 fL (7.4-10.4); MONO % 13.4 %; NEUT % 64.2 %; PLATELET COUNT 189 K/uL (130-400); RED BLOOD COUNT 3.51 M/uL (4.7-6.1); WHITE BLOOD COUNT 8.91 K/uL (4.8-10.8)
[2017-02-19 14:29] LABS: ALB/GLOB RATIO 0.8 (0.9-2); CALCIUM 8.1 mg/dl (8.5-10.1); CREATININE 4.58 mg/dl (0.60-1.40); POTASSIUM 3.2 mmol/L (3.5-5.1)
--- NOTE | 2017-02-19 14:43 | DIAGNOSTIC IMAGING REPORT ---
CHEST 2 VIEWS ROUTINE HISTORY: 51 years-old Male cough, wheezing, eval PNA acute cough with wheezing COMPARISON: Chest radiograph 09/02/2016 TECHNIQUE: PA and lateral views of the chest FINDINGS: Cardiac silhouette is moderately enlarged, unchanged. Atherosclerosis of the aorta. Coarse interstitial opacities are present within the perihilar distributions and bilateral lung bases, similar to slightly improved from prior study. No overt pulmonary edema. No pneumothorax or lobar airspace consolidation. Blunting of the costophrenic angles suggests trace effusions or atelectasis, unchanged. Ductal scoliosis of the lower thoracic spine. Multilevel degenerative changes. IMPRESSION: 1. No acute cardiopulmonary process. 2. Diffuse interstitial coarsening is again seen, greatest within the perihilar distributions and lung bases, left greater than right. 3. Blunting of the costophrenic angles is unchanged suggesting scarring/atelectasis or trace effusions. The above report was generated using voice recognition software. It may contain grammatical, syntax or spelling errors. Electronically signed by: Uriah Marina M.D. 02/19/2017 2:41 PM Dictated Date/Time: 02/19/2017 2:40 PM
[2017-02-19] MEDS ORDERED: ACETAMINOPHEN 325 MG TAB PO PRN (17:00)
[2017-02-19] MEDS ORDERED: MoRPHine SULFATE 2 MG/ML CARP IV PRN (17:00)
[2017-02-19] MEDS ORDERED: GUAIFENESIN/CODEINE 100MG/10MG 5ML UDC PO PRN (17:00)
[2017-02-19] MEDS ORDERED: ONDANSETRON INJ 2 MG/ML 2 ML VIAL IV PRN (17:00)
[2017-02-19] MEDS ORDERED: LEVALBUTEROL 1.25MG/3ML NEB INH PRN (17:00)
[2017-02-19] MEDS ORDERED: NovoLOG INSULIN PUMP SCH (17:00)
--- NOTE | 2017-02-19 17:15 | History and Physical ---
History & Physical Date & Time of Service: Feb 19, 2017 at 17:05 Chief Complaint: Syncope/Cough Primary Care Physician: Devendra Bland M.D. History of Present Illness Source: patient 51 y/o M Hx ESRD, COPD, tracheal malacia, chronic atelectasis, DM, history of PE leading to cardiac arrest, bipolar disorder, hyperthyroidism. Presents from dialysis where he was having coughing fits leading to syncope. This occurred 4 separate times prior to arrival in the ER. He denies any associated CP or discernible palpitations. He does state that he has had a progressive, productive cough recently. He denies fevers, rigors or SOB above baseline. Per the ER attending, he occasionally desaturates into the mid 80s - this may be chronic. 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 12) Grade I diastolic dysfunction - preserved EF 13) History of PE leading to PEA/cardiac arrest 14) GERD Surgical: 1) Appendectomy 2) Dialysis graft L arm 2008 Family History FH: heart disease Social History Smoking Status: Former Smoker Drug Use: none Marital Status: Housing status: lives with family Occupational Status: disabled Immunizations History of Influenza Vaccine: Yes Influenza Vaccine Date: Dec 19, 2014 History of Tetanus Vaccine?: Yes Tetanus Immunization Date: Apr 02, 2013 History of Pneumococcal: 2008 and 2013 Pneumococcal Date: Mar 21, 2008 History of Hepatitis B Vaccine: Unknown Hepatitis Immunization Date: Feb 15, 2007 Multi-Drug Resistant Organisms History of MDRO: No Allergies Coded Allergies: Tigecycline (Verified Allergy, Mild, ?RASH, 02/19/17) Penicillins (Verified Allergy, Unknown, PT HAS HAD MEFOXIN W/OUT A PROBLEM , 02/19/17) HAD MEFOXIN W/O PROBLEM Ciprofloxacin (Verified Adverse Reaction, Intermediate, nausea,vomiting, generalized weakness, 02/19/17) Morphine (Verified Adverse Reaction, Intermediate, TREMBLING,NAUSEA AND VOMITING, 02/19/17) Opioid Analgesics (Verified Adverse Reaction, Intermediate, "ALL RX PAIN MEDS CAUSE SEVERE NAUSEA", 02/19/17) Codeine (Verified Adverse Reaction, Mild, NAUSEA AND VOMITING, 02/19/17) QUESTIONABLE ALLERGY Levofloxacin (Verified Adverse Reaction, Mild, Cipro/Levaquin (IV & po) = N & V, 02/19/17) Oxycodone (Verified Adverse Reaction, Unknown, N/V/D, 02/19/17) SPOKE WITH PATIENT ON 07/29/15, DOES NOT REMEMBER ANY DIFFICULTY BREATHING JUST HIT HIM HARD. Home Medications Scheduled Amlodipine Besylate (Norvasc), 2.5 MG PO 4XWK Atorvastatin (Atorvastatin Calcium), 40 MG PO DAILY Bupropion Hcl (Wellbutrin Sr), 200 MG PO DAILY Cinacalcet (Sensipar), 30 MG PO DAILY Clopidogrel Bisulfate (Clopidogrel), 75 MG PO Q2D Fluticasone Furoate-Vilanterol (Breo Ellipta 200-25 Mcg/INH), 1 PUFF INH DAILY Furosemide (Furosemide), 80 MG PO BID Gabapentin (Gabapentin), 100 MG PO BID Insulin Aspart (novoLOG INSULIN PUMP ), 1 EA N/A UD Levothyroxine Sodium (Levothyroxine Sodium), 112 MCG PO DAILY Metoprolol Tartrate (Lopressor) (Lopressor), 50 MG PO BID Sevelamer Carbonate (Renvela), 1,600 MG PO TIDM Umeclidinium Spurger (Incruse Ellipta), 1 PUFF INH DAILY Review of Systems Constitutional: No fever, No chills, No sweats Eyes: No worsening of vision ENT: No hearing loss, No unusual epistaxis Respiratory: + cough, + sputum, + shortness of breath Cardiovascular: No chest pain, No orthopnea Abdomen: No pain, No nausea, No vomiting Musculoskeletal: No joint pain Genitourinary - Male: No hematuria, No dysuria, No urinary frequency, No urinary urgency Neurologic: + problem reported (Syncope x 4 as above), No memory loss, No paralysis, No weakness Psychiatric: No depression symptoms Hematologic / Lymphatic: No abnormal bleeding/bruising Integumentary: No rash Allergic / Immunologic: No environmental allergies Physical Exam Vital Signs Date Time Temp Pulse Resp B/P (MAP) Pulse Ox O2 Delivery O2 Flow Rate FiO2 02/19/17 16:39 74 122/69 92 Room Air 02/19/17 14:37 81 103/63 96 Room Air 02/19/17 13:43 96 Room Air 02/19/17 13:09 79 02/19/17 13:05 96 Room Air 02/19/17 12:59 37.1 76 103/64 96 Room Air 02/19/17 12:48 107 General Appearance: WD/WN, no apparent distress, + pertinent finding (Ill- appearing middle-aged male - no distress) Head: normocephalic Eyes: normal inspection ENT: normal ENT inspection, pharynx normal Neck: supple, + JVD Respiratory/Chest: chest non-tender, + decreased breath sounds (decreased air movement at bases - no clear crackles) Cardiovascular: regular rate, rhythm, no edema Abdomen/GI: normal bowel sounds, non tender, soft Back: normal inspection, no CVA tenderness Extremities/Musculoskelatal: normal inspection, no calf tenderness, normal capillary refill, + pertinent finding (Dialysis graft L arm - bruit present) 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/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: 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, no motor/sensory deficits, alert, normal mood/affect, normal reflexes, oriented x 3 Skin: normal color Diagnostics Laboratory Results Results Past 24 Hours Test 02/19/17 13:09 02/19/17 13:40 Range/Units Bedside Glucose 83 70-99 mg/dl White Blood Count 8.91 4.8-10.8 K/uL Red Blood Count 3.51 4.7-6.1 M/uL Hemoglobin 12.3 14.0-18.0 g/dL Hematocrit 36.8 42-52 % Mean Corpuscular Volume 104.8 80-100 fL Mean Corpuscular Hemoglobin 35.0 25-34 pg Mean Corpuscular Hemoglobin Concent 33.4 32-36 g/dl Platelet Count 189 130-400 K/uL Mean Platelet Volume 10.4 7.4-10.4 fL Neutrophils (%) (Auto) 64.2 % Lymphocytes (%) (Auto) 17.8 % Monocytes (%) (Auto) 13.4 % Eosinophils (%) (Auto) 3.6 % Basophils (%) (Auto) 0.7 % Neutrophils # (Auto) 5.72 1.4-6.5 K/uL Lymphocytes # (Auto) 1.59 1.2-3.4 K/uL Monocytes # (Auto) 1.19 0.11-0.59 K/uL Eosinophils # (Auto) 0.32 0-0.5 K/uL Basophils # (Auto) 0.06 0-0.2 K/uL RDW Standard Deviation 58.9 36.4-46.3 fL RDW Coefficient of Variation 15.4 11.5-14.5 % Immature Granulocyte % (Auto) 0.3 % Immature Granulocyte # (Auto) 0.03 0.00-0.02 K/uL Sodium Level 136 136-145 mmol/L Potassium Level 3.2 3.5-5.1 mmol/L Chloride Level 97 98-107 mmol/L Carbon Dioxide Level 33 21-32 mmol/L Anion Gap 7.0 3-11 mmol/L Blood Urea Nitrogen 18 7-18 mg/dl Creatinine 4.58 0.60-1.40 mg/dl Est Creatinine Clear Calc Drug Dose 19.7 ml/min Estimated GFR () 16.0 Estimated GFR (Non- 13.8 BUN/Creatinine Ratio 4.0 10-20 Random Glucose 89 70-99 mg/dl Lactic Acid Level 1.1 0.4-2.0 mmol/L Calcium Level 8.1 8.5-10.1 mg/dl Total Bilirubin 0.9 0.2-1 mg/dl Aspartate Amino Transf (AST/SGOT) 22 15-37 U/L Alanine Aminotransferase (ALT/SGPT) 24 12-78 U/L Alkaline Phosphatase 145 45-117 U/L Troponin I 0.037 0-0.045 ng/ml Total Protein 7.6 6.4-8.2 gm/dl Albumin 3.3 3.4-5.0 gm/dl Globulin 4.3 2.5-4.0 gm/dl Albumin/Globulin Ratio 0.8 0.9-2 Microbiology Results 02/19/17 Blood Culture, Received Pending 02/19/17 Blood Culture, Received Pending Diagnostic Radiology CXR: 1. No acute cardiopulmonary process. 2. Diffuse interstitial coarsening is again seen, greatest within the perihilar distributions and lung bases, left greater than right. 3. Blunting of the costophrenic angles is unchanged suggesting scarring/ atelectasis or trace effusions. EKG NSR Impression Assessment and Plan 51 y/o M Hx ESRD, COPD, tracheal malacia, chronic atelectasis, DM, history of PE leading to cardiac arrest, bipolar disorder, hyperthyroidism. Presents from dialysis where he was having coughing fits leading to syncope. This occurred 4 separate times prior to arrival in the ER. He denies any associated CP or discernible palpitations. He does state that he has had a progressive, productive cough recently. He denies fevers, rigors or SOB above baseline. 1) Cough and syncope - desaturation reported - will treat as a COPD exacerbation as no clear PNM is present on XR - the XR itself has chronic changes and may limit interpretation or obscure acute findings. Syncope is likely vagal rather than related to hypoxic episodes. We will monitor on telemetry for related arrhythmias. Nebs, antibiotics, 02 protocol and cough suppressant provided. Would have low threshold for starting steroids, however, at present when not coughing, he is maintaining an adequate sat on room air and no audible wheezing is present. 2) ESRD - post-dialysis earlier in day - will contact nephrology if he remains in the hospital. Cont Renvela, Sensipar 3) DM - uses an insulin pump which will be maintained. 4) Hyperthyroidism - cont Synthroid Full code - Heparin prophylaxis Total time for this admit including review of labs, meds, imaging - discussion with pt and ER attending - 40 min Level of Care Telemetry Resuscitation Status FULL RESUSCITATION VTE Prophylaxis VTE Risk Assessment Done? Y/N: Yes Risk Level: Moderate Given or contraindicated: Unfractionated heparin SQ
[2017-02-19 18:53] VITALS: BP 146/81; PULSE 81; TEMP 36.6; O2SAT 95; BMI 27.5
[2017-02-19] MEDS: ALBUT/IPRATROP 3MG/0.5MG NEB 3 ML VIAL INH SCH (19:06)
[2017-02-19 19:38] LABS: PARTIAL THROMBOPLASTIN RATIO 1.2; PROTHROMBIN TIME (PATIENT) 11.1 SECONDS (9.0-12.0)
[2017-02-19] MEDS ORDERED: GLUCOSE 40% GEL 15 GM TUBE PO PRN (20:00)
[2017-02-19] MEDS ORDERED: NURSING VERBAL MED ORDER ONE ×2 (20:00→22:00)
[2017-02-19] MEDS ORDERED: GLUCAGON FOR INJ 1 MG VIAL SQ PRN (20:00)
[2017-02-19] MEDS ORDERED: INSULIN ASPART 100 UNITS/ML VIAL SC PRN (20:00)
[2017-02-19] MEDS ORDERED: LEVOFLOXACIN CONSULT ACTIVE PRN (20:30)
[2017-02-19] MEDS ORDERED: FUROSEMIDE 80 MG TAB PO SCH (21:00)
[2017-02-19] MEDS ORDERED: METOPROLOL TARTRATE 50 MG TAB PO SCH (21:00)
[2017-02-19] MEDS ORDERED: GABAPENTIN 100 MG CAP PO SCH (21:00)
[2017-02-19] MEDS ORDERED: LEVOFLOXACIN / D5W 750 MG in PREMIXED IN D5W 150 ML IV ONE (21:00)
[2017-02-19] MEDS ORDERED: AZITHROMYCIN IV 500 MG in DEXTROSE 5% 250ML 250 ML IV ONE (22:00)
[2017-02-19] MEDS: DEXTROSE 50% 50 ML SYR IV PRN (22:09)
[2017-02-19 23:53] VITALS: BP 119/71; PULSE 62; TEMP 36.4; O2SAT 96
[2017-02-20] VITALS (9 sets, daily range): BP systolic 103–146; BP diastolic 72–84; PULSE 67–80; TEMP 36.4–36.7; O2SAT 94–97
[2017-02-20] MEDS: GUAIFENESIN SUGAR FREE 200 MG/10 ML UDC PO PRN ×3 (00:04→17:44)
[2017-02-20] MEDS: GUAIFENESIN 600 MG TABCR PO SCH ×2 (00:05→17:44)
[2017-02-20] MEDS: HEPARIN SOD 5000 UNIT/0.5 ML CARP SQ SCH ×4 (00:19→20:26)
[2017-02-20] MEDS ORDERED: NURSING VERBAL MED ORDER ONE ×2 (00:45)
[2017-02-20] MEDS ORDERED: CLOPIDOGREL BISULFATE 75 MG TAB PO SCH ×2 (01:00→09:00)
[2017-02-20] MEDS: FUROSEMIDE 80 MG TAB PO SCH ×2 (01:19→11:58)
[2017-02-20] MEDS: LEVOTHYROXINE 112 MCG TAB PO SCH (01:19)
[2017-02-20] MEDS: GABAPENTIN 100 MG CAP PO SCH ×2 (01:20→11:58)
[2017-02-20] MEDS: ATORVASTATIN 40 MG TAB PO SCH (01:20)
[2017-02-20] MEDS: METOPROLOL TARTRATE 50 MG TAB PO SCH ×2 (01:20→11:58)
[2017-02-20] MEDS: BuPROPion SR 100 MG TABCR PO SCH (01:21)
[2017-02-20] MEDS: AMLODIPINE BESYLATE 5 MG TAB PO SCH (01:22)
[2017-02-20] MEDS: ALBUT/IPRATROP 3MG/0.5MG NEB 3 ML VIAL INH SCH ×4 (02:05→19:18)
[2017-02-20] MEDS ORDERED: LEVOTHYROXINE 112 MCG TAB PO SCH (06:00)
[2017-02-20] MEDS ORDERED: INSULIN ASPART 100 UNITS/ML 3 ML PEN SC SCH (07:00)
[2017-02-20] MEDS: SEVELAMER HYDROCH 800 MG TAB PO SCH ×5 (07:23→17:44)
[2017-02-20] MEDS ORDERED: ATORVASTATIN 40 MG TAB PO SCH (09:00)
[2017-02-20] MEDS ORDERED: CINACALCET 30 MG PO SCH (09:00)
[2017-02-20] MEDS ORDERED: AMLODIPINE BESYLATE 5 MG TAB PO SCH (09:00)
[2017-02-20] MEDS ORDERED: NON-FORMULARY MEDICATION (Fluticasone Furoate-Vilanterol (Breo Ellipta 200-25 Mcg/INH) 1 P INH SCH (09:00)
[2017-02-20] MEDS ORDERED: NON-FORMULARY MEDICATION (Umeclidinium Bromide (Incruse Ellipta) 1 PUFF) INH SCH (09:00)
[2017-02-20] MEDS ORDERED: BuPROPion SR 100 MG TABCR PO SCH (09:00)
[2017-02-20] MEDS: NovoLOG INSULIN PUMP SCH ×3 (11:00→20:26)
--- NOTE | 2017-02-20 16:20 | Progress Note ---
Subjective Date of Service: Feb 20, 2017. Subjective Pt evaluation today including: conversation w/ patient, physical exam, lab review, review of studies, review of inpatient medication list Pain: no pain PO Intake: adequate Voiding: no voiding problems discussed events from yesterday has been dealing with sinus congestion, non productive cough for a few weeks while at dialysis, they force him to lay flat and he says that it makes his cough worse with his tracheomalacia normal WBC, afebrile CXR with chronic changes he says that hypoglycemia normal after dialysis days Problem List Medical Problems: (1) Bronchitis Status: Acute (2) Contusion of head Status: Acute (3) End stage renal disease Status: Acute (4) ESRD (end stage renal disease) on dialysis Status: Acute (5) Fall Status: Acute (6) Hypoglycemia Status: Acute (7) Hypoglycemia Status: Acute (8) Hypoglycemia Status: Acute (9) Hypoglycemia Status: Acute (10) Hypoglycemia Status: Acute (11) Hypoglycemia Status: Acute (12) Hypoxemia Status: Acute (13) Right lower lobe pneumonia Status: Acute (14) Right middle lobe pneumonia Status: Acute (15) Sepsis Status: Acute (16) Syncope Status: Acute (17) Traumatic hematoma of forehead Status: Acute Review of Systems Respiratory: + cough All Other Systems: Reviewed and Negative Medications Current Inpatient Medications Medications (Trade) Dose Ordered Sig/Etta Route Start Time Stop Time Status Last Admin Dose Admin Sevelamer HCl (Renagel Tab) 1,600 mg TIDM PO 02/20/17 07:30 03/22/17 07:29 02/20/17 11:57 1,600 MG Heparin Sodium (Porcine) (Heparin Sq 5000 Unit/0.5ml) 5,000 unit Q8 SQ 02/19/17 22:00 03/21/17 21:59 Acetaminophen (Tylenol Tab) 650 mg Q4H PRN PO 02/19/17 17:00 03/21/17 16:59 Ondansetron HCl (Zofran Inj) 4 mg Q6H PRN IV 02/19/17 17:00 03/21/17 16:59 Morphine Sulfate (MoRPHine SULFATE INJ) 2 mg Q30M PRN IV 02/19/17 17:00 03/05/17 16:59 Albuterol/ Ipratropium (Duoneb) 3 ml Q6R INH 02/19/17 21:00 03/21/17 20:59 02/20/17 14:39 3 ML Levalbuterol (Xopenex 1.25MG/ 3ML Neb) 1.25 mg Q4R PRN INH 02/19/17 17:00 03/21/17 16:59 Miscellaneous Information (Order Awaiting Action) 1 ea QS N/A 02/20/17 00:00 03/22/17 00:00 Miscellaneous Information (Order Awaiting Action) 1 ea QS N/A 02/20/17 00:00 03/22/17 00:00 Miscellaneous Information (Order Awaiting Action) 1 ea QS N/A 02/20/17 00:00 03/22/17 00:00 Insulin Aspart (novoLOG INSULIN PUMP) 1 ea ACHS N/A 02/19/17 21:00 03/21/17 20:59 Future hold 02/20/17 15:59 1 EA Insulin Aspart (novoLOG ASPART) SLIDING SCALE PRN PRN SC 02/19/17 20:00 03/21/17 19:59 Future hold Glucose (Glucose 40% Gel) UD PRN PO 02/19/17 20:00 03/21/17 19:59 Glucose (Glucose Chew Tab) 1 tabs UD PRN PO 02/19/17 20:00 03/21/17 19:59 Glucagon (Glucagon Inj) 1 mg UD PRN SQ 02/19/17 20:00 03/21/17 19:59 Dextrose (Dextrose 50% 50ML Syringe) 50 ml UD PRN IV 02/19/17 20:00 03/21/17 19:59 02/19/17 22:09 50 ML Amlodipine Besylate (Norvasc Tab) 2.5 mg DAILY@0100 PO 02/20/17 01:00 03/22/17 00:59 02/20/17 01:22 2.5 MG Atorvastatin Calcium (Lipitor Tab) 40 mg DAILY@0100 PO 02/20/17 01:00 03/22/17 00:59 02/20/17 01:20 40 MG Bupropion HCl (Wellbutrin-Sr Tab) 200 mg DAILY@0100 PO 02/20/17 01:00 03/22/17 00:59 02/20/17 01:21 200 MG Clopidogrel Bisulfate (plAVix TAB) 75 mg Q2D@010 PO 02/20/17 01:00 03/22/17 00:59 02/20/17 01:22 75 MG Furosemide (Lasix Tab) 80 mg BID@0100,1300 PO 02/20/17 01:00 03/22/17 00:59 02/20/17 11:58 80 MG Gabapentin (Neurontin Cap) 100 mg BID@0100,1300 PO 02/20/17 01:00 03/22/17 00:59 02/20/17 11:58 100 MG Levothyroxine Sodium (Synthroid Tab) 112 mcg DAILY@0100 PO 02/20/17 01:00 03/22/17 00:59 02/20/17 01:19 112 MCG Metoprolol Tartrate (Lopressor Tab) 50 mg BID@0100,1300 PO 02/20/17 01:00 03/22/17 00:59 02/20/17 11:58 50 MG Insulin Aspart (novoLOG ASPART) SLIDING SCALE G... ACHS SC 02/20/17 07:00 03/22/17 06:59 Future Hold Guaifenesin (Mucinex Contr Rel Tab) 600 mg BID PO 02/20/17 09:00 03/22/17 08:59 02/20/17 00:05 600 MG Guaifenesin (Robitussin Sugar Free Syrup) 200 mg Q4H PRN PO 02/19/17 23:45 03/21/17 23:44 02/20/17 11:26 200 MG Azithromycin (Zithromax Tab) 500 mg QAM PO 02/21/17 08:00 02/27/17 08:59 Objective Vital Signs Date Time Temp Pulse Resp B/P (MAP) Pulse Ox O2 Delivery O2 Flow Rate FiO2 02/20/17 15:16 36.4 79 20 146/74 (98) 95 Room Air 02/20/17 14:40 80 16 96 Room Air 02/20/17 11:45 36.7 72 18 132/78 (96) 97 Room Air 02/20/17 11:21 36.6 76 16 95 02/20/17 08:02 76 16 95 Room Air 02/20/17 08:00 Room Air 02/20/17 07:32 36.6 67 20 137/84 (101) 96 Room Air 02/20/17 04:22 36.5 73 18 103/72 (82) 94 Room Air 02/20/17 04:00 Room Air 02/20/17 02:05 79 16 96 Room Air 02/19/17 23:59 Room Air 02/19/17 23:53 36.4 62 18 119/71 (87) 96 Room Air 02/19/17 18:53 36.6 81 20 146/81 95 Room Air 02/19/17 18:24 85 116/95 90 02/19/17 16:39 74 122/69 92 Room Air Physical Exam General Appearance: WD/WN, no apparent distress Eyes: normal inspection, EOMI, sclerae normal ENT: normal ENT inspection, hearing grossly normal, pharynx normal Neck: supple, no adenopathy, no JVD, trachea midline Respiratory/Chest: chest non-tender, no respiratory distress, no accessory muscle use, + rhonchi (left side, no wheezing) Cardiovascular: regular rate, rhythm, no edema, no gallop, no JVD, no murmur Abdomen: normal bowel sounds, non tender, soft, no organomegaly Extremities: normal range of motion, non-tender, normal inspection, no pedal edema, no calf tenderness, pelvis stable Neurologic/Psychiatric: mail officer II-XII nml as tested, no motor/sensory deficits, alert, normal mood/affect, oriented x 3 Skin: normal color, warm/dry, no rash Laboratory Results Last 24 Hours Test 02/19/17 18:44 02/19/17 20:15 02/19/17 22:00 02/19/17 22:12 Bedside Glucose 233 mg/dl 115 mg/dl 26 mg/dl 178 mg/dl Test 02/20/17 00:06 02/20/17 00:30 02/20/17 02:00 02/20/17 04:21 Bedside Glucose 94 mg/dl 151 mg/dl 139 mg/dl 79 mg/dl Test 02/20/17 04:56 02/20/17 06:33 02/20/17 10:11 02/20/17 11:48 Bedside Glucose 123 mg/dl 188 mg/dl 196 mg/dl 67 mg/dl Test 02/20/17 12:45 02/20/17 14:19 Bedside Glucose 86 mg/dl 77 mg/dl Assessment and Plan 51 y/o M Hx ESRD, COPD, tracheal malacia, chronic atelectasis, DM, history of PE leading to cardiac arrest, bipolar disorder, hyperthyroidism. Presents from dialysis where he was having coughing fits leading to syncope. This occurred 4 separate times prior to arrival in the ER. He denies any associated CP or discernible palpitations. He does state that he has had a progressive, productive cough recently. He denies fevers, rigors or SOB above baseline. - Cough and syncope: syncope likely from vagal tone with coughing no significant coughing or hypoxia while admitted rhonchi heard on the left CXR with chronic changes and normal WBC, afebrile will give Azithromycin 500mg daily for 5 days to cover Pertussis can transfer to medical floor should be d/c to home tomorrow when he has a ride ESRD - scheduled for HD on Tuesday, continue Lasix. Cont Renvela, Sensipar DM - uses an insulin pump which will be maintained. some hypoglycemic episodes today, he says that is typical post dialysis Hyperthyroidism - cont Synthroid Plan: as mentioned above, d/c tomorrow on Azithromycin to complete 5 days of 500mg
[2017-02-20] MEDS: GLUCOSE 10 TABS/TUBE PO PRN ×2 (20:34→20:56)
[2017-02-20] MEDS ORDERED: AZITHROMYCIN IV 250 MG in DEXTROSE 5% 250ML 250 ML IV SCH (22:00)
[2017-02-21 00:51] VITALS: BP 137/74; PULSE 82; TEMP 37; O2SAT 96
[2017-02-21] MEDS: METOPROLOL TARTRATE 50 MG TAB PO SCH ×2 (01:20→13:00)
[2017-02-21] MEDS: GABAPENTIN 100 MG CAP PO SCH ×2 (01:20→12:59)
[2017-02-21] MEDS: AMLODIPINE BESYLATE 5 MG TAB PO SCH (01:21)
[2017-02-21] MEDS: ATORVASTATIN 40 MG TAB PO SCH (01:22)
[2017-02-21] MEDS: FUROSEMIDE 80 MG TAB PO SCH ×2 (01:23→13:00)
[2017-02-21] MEDS: BuPROPion SR 100 MG TABCR PO SCH (01:23)
[2017-02-21] MEDS: LEVOTHYROXINE 112 MCG TAB PO SCH (01:24)
[2017-02-21 01:40] VITALS: PULSE 78; O2SAT 95
[2017-02-21] MEDS: ALBUT/IPRATROP 3MG/0.5MG NEB 3 ML VIAL INH SCH ×2 (01:40→07:00)
[2017-02-21] MEDS: GLUCOSE 10 TABS/TUBE PO PRN (01:47)
[2017-02-21] MEDS: DEXTROSE 50% 50 ML SYR IV PRN ×3 (02:21→04:37)
[2017-02-21] MEDS: HEPARIN SOD 5000 UNIT/0.5 ML CARP SQ SCH ×2 (06:00→12:50)
[2017-02-21] MEDS: NovoLOG INSULIN PUMP SCH ×2 (06:30→11:00)
[2017-02-21 06:57] VITALS: BP 138/81; PULSE 74; TEMP 36.6; O2SAT 97
[2017-02-21 07:00] VITALS: PULSE 81; O2SAT 97
[2017-02-21 08:00] VITALS: O2SAT 97
[2017-02-21] MEDS ORDERED: AZITHROMYCIN 250 MG TAB PO SCH (08:00)
[2017-02-21] MEDS: SEVELAMER HYDROCH 800 MG TAB PO SCH ×2 (08:13→11:33)
[2017-02-21] MEDS: GUAIFENESIN 600 MG TABCR PO SCH (08:14)
[2017-02-21 10:18] VITALS: BP 138/81; PULSE 81; TEMP 36.6; O2SAT 97
[2017-02-21] MEDS ORDERED: AZIT-57 PO (11:04)
[2017-02-21] MEDS ORDERED: GFNSR600 PO (11:04)
--- NOTE | 2017-02-21 11:08 | Discharge Instructions ---
Discharge Instructions Date of Service Feb 21, 2017. Admission Reason for Admission: Cough, Syncope, Esrd Discharge Discharge Diagnosis / Problem: Acute bronchitis, Syncope Discharge Goals Goal(s): Improve disease control, Diagnostic testing, Therapeutic intervention Activity Recommendations Activity Limitations: resume your previous activity PLEASE DO NOT LIE FLAT FOR ANY REASON WHILE AT DIALYSIS. This likely contributed to your passing out due to low oxygen levels because of your tracheomalacia. . Instructions / Follow-Up Instructions / Follow-Up Please follow up with your PCP, Endocrinology within 1 week. Please finish out your course of azithromycin for acute bronchitis. Current Hospital Diet Patient's current hospital diet: Diabetes Type 2 Diet, Renal Diet Discharge Diet Recommended Diet: Diabetes Type 1 Diet, Renal Diet Procedures Procedures Performed: Chest xray Pending Studies Studies pending at discharge: yes List of pending studies: Final Blood cultures 02/19/17 Laboratory Results Last 24 Hours Test 02/20/17 11:48 02/20/17 12:45 02/20/17 14:19 02/20/17 16:28 Bedside Glucose 67 mg/dl 86 mg/dl 77 mg/dl 82 mg/dl Test 02/20/17 20:08 02/20/17 20:27 02/20/17 20:52 02/20/17 21:20 Bedside Glucose 37 mg/dl 51 mg/dl 60 mg/dl 65 mg/dl Test 02/20/17 21:59 02/21/17 01:39 02/21/17 02:15 02/21/17 02:16 Bedside Glucose 125 mg/dl 37 mg/dl 29 mg/dl 33 mg/dl Test 02/21/17 02:25 02/21/17 02:42 02/21/17 02:45 02/21/17 02:48 Bedside Glucose 72 mg/dl 38 mg/dl 245 mg/dl 98 mg/dl Test 02/21/17 03:05 02/21/17 03:10 02/21/17 05:11 02/21/17 07:36 Bedside Glucose 53 mg/dl 253 mg/dl 150 mg/dl Random Glucose 40 mg/dl Medical Emergencies . Who to Call and When: Medical Emergencies: If at any time you feel your situation is an emergency, please call 911 immediately. . Non-Emergent Contact Non-Emergency issues call your: Primary Care Provider, Specialist ( Branch Employment Coordinator for any blood sugar issues) Call Non-Emergent contact if: temperature is above 100.5, you have any medication questions . . "Provider Documentation" section prepared by Melissa Guerrier. . VTE Core Measure Inpt VTE Proph given/why not?: Unfractionated heparin SQ
[2017-02-21] MEDS: GUAIFENESIN SUGAR FREE 200 MG/10 ML UDC PO PRN (11:32)
[2017-02-21 13:48] VITALS: Ht 177.8 cm; Wt 87.0 kg
[2017-02-21] MEDS ORDERED: LEVOFLOXACIN 500MG / D5W IV SCH (21:00)
--- NOTE | 2017-02-22 06:50 | Discharge Summary ---
Discharge Summary Date of Service Feb 21, 2017. Discharge Summary Admission Date: Feb 19, 2017 at 17:02 Discharge Date: Feb 21, 2017 Discharge Disposition: Home Principal Diagnosis: Syncope, Acute bronchitis Problems/Secondary Diagnoses: Hypoglycemia Hyperglycemia History of Achromobacter pneumonia Chronic anemia HTN Bipolar disorder ESRD - on hemodialysis - has been on dialysis due to diabetic nephropathy for 10 yrs COPD Type 1 DM - diagnosed in 1970s Secondary hyperparathyroidism Hyperparathyroidism due to ESRD Hypothyroidism Polychondritis with tracheomalacia Chronic diastolic CHF History of PE leading to PEA/cardiac arrest GERD Moderate Mild MS Immunizations: Have You Had Influenza Vaccine: Yes Influenza Vaccine Date: Dec 19, 2014 History of Tetanus Vaccine?: Yes Tetanus Immunization Date: Apr 02, 2013 History of Pneumococcal: 2008 and 2013 Pneumococcal Date: Mar 21, 2008 History of Hepatitis B Vaccine: Unknown Hepatitis Immunization Date: Feb 15, 2007 Procedures: CXR Consultations: None Medication Reconciliation New Medications: Azithromycin (Azithromycin) 250 Mg Tab 250 MG PO QAM for 3 Days, #3 TAB next dose due 02/22/17 Guaifenesin Ext Rel (Mucinex Ext Rel) 600 Mg Tabcr 600 MG PO BID for 7 Days OTC Continued Medications: Amlodipine Besylate (Norvasc) 2.5 Mg Tab 2.5 MG PO 4XWK TAKE THIS MEDICATION ON NON DIALYSIS DAYS-TAKES SUNDAYS, MONDAYS, WEDNESDAYS & FRIDAYS. Atorvastatin (Atorvastatin Calcium) 40 Mg Tab 40 MG PO DAILY Bupropion Hcl (Wellbutrin Sr) 200 Mg Tab 200 MG PO DAILY, TAB Cinacalcet (Sensipar) 30 Mg Tab 30 MG PO DAILY, TAB Clopidogrel Bisulfate (Clopidogrel) 75 Mg Tab 75 MG PO Q2D Fluticasone Furoate-Vilanterol (Breo Ellipta 200-25 Mcg/INH) 1 Inh Inh 1 PUFF INH DAILY Furosemide (Furosemide) 80 Mg Tab 80 MG PO BID Gabapentin (Gabapentin) 100 Mg Cap 100 MG PO BID Insulin Aspart (novoLOG INSULIN PUMP ) 1 Ea Inj 1 EA N/A UD, EA BASE RATE =.6 UNITS/HR VIA PUMP Levothyroxine Sodium (Levothyroxine Sodium) 112 Mcg Tab 112 MCG PO DAILY Metoprolol Tartrate (Lopressor) (Lopressor) 50 Mg Tab 50 MG PO BID Sevelamer Carbonate (Renvela) 800 Mg Tab 1600 MG PO TIDM Umeclidinium [place] (Incruse Ellipta) 62.5 Mcg/Inh Inh 1 PUFF INH DAILY Discharge Exam Feeling better, no syncope, not lightheaded. Cough is much improved. Glucose was labile with a high in the 400s on his home meter last night but 240 on our meter, then multiple readings of hypoglycemia. He turned his pump down from his usual 0.6 units/hr to 0.18. He feels he can adequately regulate his sugar upon discharge. He had an Endo appt today that he isidoro reschedule. Review of Systems: Constitutional: No fever, No chills Eyes: No problem reported ENT: No problem reported Respiratory: + cough, + sputum (but can't get it past the back of his throat ) Cardiovascular: No chest pain Abdomen: No problem reported Musculoskeletal: No problem reported Genitourinary - Male: No problem reported Neurologic: No problem reported Psychiatric: No problem reported Endocrine: No problem reported Hematologic / Lymphatic: No problem reported Integumentary: No problem reported Physical Exam: General Appearance: no apparent distress (appears chronically ill) Eyes: normal inspection, sclerae normal ENT: hearing grossly normal Neck: trachea midline Respiratory/Chest: no respiratory distress, no accessory muscle use, + pertinent finding (diffuse inspiratory wheeze, some faint exp wheeze, no rhonchi or crackles) Cardiovascular: regular rate, rhythm, + systolic murmur (4/6 SKIP heard best at RUSB) Abdomen / GI: normal bowel sounds, non tender, soft Extremities: no calf tenderness, no pedal edema Neurologic/Psychiatric: alert, normal mood/affect, oriented x 3 Skin: normal color, warm/dry, no rash Hospital Course 51 y/o M Hx ESRD, COPD, tracheal malacia, chronic atelectasis, DM, history of PE leading to cardiac arrest, bipolar disorder, hypothyroidism. Presents from dialysis where he was having coughing fits leading to syncope. This occurred 4 separate times prior to arrival in the ER. He denies any associated CP or discernible palpitations. He does state that he has had a progressive, productive cough recently. He denies fevers, rigors or SOB above baseline. Cough and syncope: syncope likely from vagal tone with coughing versus hypoxemia as he was hypoxic to 87% on arrival in the ER. Patient reports this is secondary to being made to lie flat when his blood pressure dropped low during dialysis. Because of his tracheomalacia, he has great difficulty breathing while lying flat Cough significantly improved, he had no further hypoxia during admission. CXR with chronic changes and normal WBC, afebrile will give Azithromycin 500mg daily for 5 days to cover for acute bronchitis Follow up with PCP as an outpatient within 1 week Advised not to lie flat during dialysis ESRD - scheduled for HD on Tuesday, continue Lasix. Cont Renvela, Sensipar DM - uses an insulin pump which will be maintained. some hypoglycemic and hyperglycemic episodes during this admission likely secondary to changes in diet and activity levels He was due for endocrinology appointment on the day of discharge-he will call to reschedule Hypothyroidism - stable, cont Synthroid Total Time Spent: Greater than 30 minutes This includes examination of the patient, discharge planning, medication reconciliation, and communication with other providers. Discharge Instructions Please refer to the electronic Patient Visit Report (Discharge Instructions) for additional information. Follow-Up PCP and Endocrine in 1 week Additional Copies To Devendra Bland M.D.
== END 2017-02-21 14:00 | disposition home or self-care (01) | DRG 190 ==
LOC: EDBD 12:52 → C.EDC 12:53 → C.2T 17:00 → C.EDC 17:02 → ENRESERV 17:13 → C.4E 02-20 11:41 → CANBEDREQ 02-20 11:43
PROVIDERS: ADMIT Internal Medicine; ATTEND Family Medicine
DX: J44.0 Chronic obstructive pulmonary disease with (acute) lower respiratory infection (principal); N18.6 End stage renal disease; I12.0 Hypertensive chronic kidney disease with stage 5 chronic kidney disease or end stage renal disease; J98.11 Atelectasis; N25.81 Secondary hyperparathyroidism of renal origin; J20.9 Acute bronchitis, unspecified; S00.93XA Contusion of unspecified part of head, initial encounter; F31.9 Bipolar disorder, unspecified; E10.40 Type 1 diabetes mellitus with diabetic neuropathy, unspecified; E10.21 Type 1 diabetes mellitus with diabetic nephropathy; Z86.718 Personal history of other venous thrombosis and embolism; Z86.74 Personal history of sudden cardiac arrest; K21.9 Gastro-esophageal reflux disease without esophagitis; Z88.0 Allergy status to penicillin; Z79.4 Long term (current) use of insulin; E03.9 Hypothyroidism, unspecified; E10.65 Type 1 diabetes mellitus with hyperglycemia; E10.649 Type 1 diabetes mellitus with hypoglycemia without coma; I35.0 Nonrheumatic aortic (valve) stenosis; Z99.2 Dependence on renal dialysis; J39.8 Other specified diseases of upper respiratory tract; W19.XXXA Unspecified fall, initial encounter; Y92.538 Other ambulatory health services establishments as the place of occurrence of the external cause

== ENCOUNTER 2017-02-22 08:09 | Emergency (ER) | payer OTHER, BC ==
[~2017-02-22] VITALS: Ht 157.5 cm; Wt 93.8 kg
[~2017-02-22 08:09] MED LIST changes: +AZIT-57 PO; +GFNSR600 PO
[2017-02-22 08:20] VITALS: Ht 157.5 cm; Wt 93.8 kg
--- NOTE | 2017-02-22 08:32 | EMERGENCY ROOM VISIT NOTE ---
History Report prepared by Cece: Talisha Terry Under the Supervision of: Dr. Denny Fisher M.D. First contact with patient: 08:16 Chief Complaint: HYPOGLYCEMIA Stated Complaint: HYPOGLYCEMIA History of Present Illness The patient is a 51 year old male who presents to the Emergency Room with complaints of persistent hypoglycemia that was found this morning. The patient states that the last thing he remembers is taking his blood sugar around 0430. He states that he found his blood sugar to be 208 mg/dL. The patient states that he must have been found by his this morning. Per nursing notes the patient was found to be hypoglycemic this morning with a BSG of 32 mg/dL. Nursing notes report that the patient was given glucagon and his blood sugar merary to 55 mg/dL. Nursing notes report that the patient was released from the emergency department less than 12 hours ago. The patient states that he is scheduled for dialysis this morning. Source of History: patient, nursing staff Onset: this morning Position: other (global) Symptom Intensity: 32-55 mg/dL Quality: other (hypoglycemia) Timing: other (persistent) Modifying Factors (Relieving): other (glucagon) Review of Systems See HPI for pertinent positives & negatives. A total of 10 systems reviewed and were otherwise negative. 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 (14) End-stage renal disease on hemodialysis (15) ESRD (end stage renal disease) (16) Gram-positive cocci bacteremia (17) History of diabetic ulcer of foot (18) Hyperparathyroidism due to renal insufficiency (19) Hypertension (20) Hypothyroidism (21) infected hematoma R thigh (22) Loss of sensation (23) multipel pna, sepsis (24) multipel pna, sepsis (25) Pneumonia (26) Pulmonary edema (27) Tracheomalacia (28) venous stenosis AVF Family History FH: heart disease Social History Smoking Status: Never Smoker Alcohol Use: none Drug Use: none Marital Status: Housing Status: lives with family Occupation Status: disabled Current/Historical Medications Scheduled Amlodipine Besylate (Norvasc), 2.5 MG PO 4XWK Atorvastatin (Atorvastatin Calcium), 40 MG PO DAILY Azithromycin (Azithromycin), 250 MG PO QAM Bupropion Hcl (Wellbutrin Sr), 200 MG PO DAILY Cinacalcet (Sensipar), 30 MG PO DAILY Clopidogrel Bisulfate (Clopidogrel), 75 MG PO Q2D Fluticasone Furoate-Vilanterol (Breo Ellipta 200-25 Mcg/INH), 1 PUFF INH DAILY Furosemide (Furosemide), 80 MG PO BID Gabapentin (Gabapentin), 100 MG PO BID Guaifenesin Ext Rel (Mucinex Ext Rel), 600 MG PO BID Insulin Aspart (novoLOG INSULIN PUMP ), 1 EA N/A UD Levothyroxine Sodium (Levothyroxine Sodium), 112 MCG PO DAILY Metoprolol Tartrate (Lopressor) (Lopressor), 50 MG PO BID Sevelamer Carbonate (Renvela), 1,600 MG PO TIDM Umeclidinium [place] (Incruse Ellipta), 1 PUFF INH DAILY Allergies Coded Allergies: Codeine (Verified Allergy, Intermediate, NAUSEA AND VOMITING, 02/22/17) QUESTIONABLE ALLERGY, STILL QUESTIONABLE BUT D/C SHONDA WITH COD 02/20/17 Tigecycline (Verified Allergy, Mild, ?RASH, 02/22/17) Penicillins (Verified Allergy, Unknown, PT HAS HAD MEFOXIN W/OUT A PROBLEM , 02/22/17) HAD MEFOXIN W/O PROBLEM Ciprofloxacin (Verified Adverse Reaction, Intermediate, nausea,vomiting, generalized weakness, 02/22/17) Morphine (Verified Adverse Reaction, Intermediate, TREMBLING,NAUSEA AND VOMITING, 02/22/17) Opioid Analgesics (Verified Adverse Reaction, Intermediate, "ALL RX PAIN MEDS CAUSE SEVERE NAUSEA", 02/22/17) Levofloxacin (Verified Adverse Reaction, Mild, Cipro/Levaquin (IV & po) = N & V, 02/22/17) Oxycodone (Verified Adverse Reaction, Unknown, N/V/D, 02/22/17) SPOKE WITH PATIENT ON 07/29/15, DOES NOT REMEMBER ANY DIFFICULTY BREATHING JUST HIT HIM HARD. Physical Exam Vital Signs Date Time Temp Pulse Resp B/P (MAP) Pulse Ox O2 Delivery O2 Flow Rate FiO2 02/22/17 10:00 36.4 70 18 160/101 93 02/22/17 08:20 36.4 66 18 174/103 98 Room Air 02/22/17 08:16 68 Physical Exam GENERAL: Patient is a healthy-appearing well-nourished male HEAD: Normocephalic atraumatic EYES: Ocular movements intact pupils equal and react to light OROPHARYNX mucous membranes are moist no exudates present no erythema or edema present NECK: Supple no nuchal rigidity CHEST: Good equal expansion LUNGS: Clear and equal to auscultation CARDIAC: Normal S1 and S2 ABDOMEN: Soft nontender no guarding BACK: No CVA tenderness EXTREMITIES: No pain upon palpation normal muscle strength in all groups no clubbing cyanosis or edema NEURO: Patient is following commands and answering questions appropriately. Alert and oriented x3 Cranial Nerves 2-12 grossly intact Medical Decision & Procedures Laboratory Results Test 02/22/17 08:21 Bedside Glucose 68 mg/dl (70-99) Labs reviewed by ED physician. ED Course 08: Past medical records reviewed. The patient was evaluated in room B2. A complete history and physical examination was performed. I discussed the treatment plan with him. He verbalized complete understanding and agreement. We will arrange transportation for the patient to go to dialysis. Medical Decision Differential diagnosis: Etiologies such as viral syndrome, otitis, pharyngitis, pneumonia, influenza, meningitis, urinary tract infection, sepsis, bacteremia, as well as others were entertained. This is a 51-year-old male who presents emergency department after a period of hypoglycemia. The patient is known to the emergency department and has had episodes like this previously. He reports feeling well today. He has not eaten. He has dialysis today. I will note he is afebrile here and has normal vital signs. He was given food here in the emergency department and discussed with case management who took care of getting the patient to dialysis. Medication Reconcilliation Current Medication List: was personally reviewed by me Impression Primary Impression: Hypoglycemia Scribe Attestation The scribe's documentation has been prepared under my direction and personally reviewed by me in its entirety. I confirm that the note above accurately reflects all work, treatment, procedures, and medical decision making performed by me. Departure Information Dispostion Home / Self-Care Referrals Devendra Bland M.D. (PCP) Forms HOME CARE DOCUMENTATION FORM, IMPORTANT VISIT INFORMATION, WORK / SCHOOL INSTRUCTIONS Patient Instructions My [facility] Additional Instructions Go Directly to Dialysis You were found to have an elevated blood pressure today (>120 sytolic or >90 diastolic). Per medicare guidelines, you need to follow up with this blood pressure screening with your Primary Care Physician (PCP). For a new PCP call [phone]. You have been examined and treated today on an emergency basis only. This is not a substitute for, or an effort to provide, complete comprehensive medical care. It is impossible to recognize and treat all injuries or illnesses in a single emergency department visit. It is therefore important that you follow up closely with Dr Bland. Call as soon as possible for an appointment. Thank you for your time and consideration. I look forward to speaking with you again soon. Please don't hesitate to call us if you have any questions.
[2017-02-22 10:00] VITALS: BP 160/101; PULSE 70; TEMP 36.4; O2SAT 93
== END 2017-02-22 10:01 | disposition home or self-care (01) ==
LOC: EDBD 08:09 → C.EDA 08:10
DX: E11.649 Type 2 diabetes mellitus with hypoglycemia without coma (principal); N18.6 End stage renal disease; I12.0 Hypertensive chronic kidney disease with stage 5 chronic kidney disease or end stage renal disease; F31.9 Bipolar disorder, unspecified; Z79.4 Long term (current) use of insulin; E03.9 Hypothyroidism, unspecified; Z99.2 Dependence on renal dialysis

== ENCOUNTER 2017-03-16 10:26 | Emergency (ER) | payer OTHER, BC ==
[2017-03-16 10:26] VITALS: TEMP 36.6
[2017-03-16] MEDS ORDERED: DEXTROSE 50% 50 ML SYR ONE (10:46)
[2017-03-16 11:14] LABS: HEMATOCRIT 40.7 % (42-52); MEAN CELL VOLUME 105.4 fL (80-100); MEAN CORPUSCULAR HEMOGLOBIN 35.2 pg (25-34); MEAN CORPUSCULAR HGB CONC 33.4 g/dl (32-36); PLATELET COUNT 208 K/uL (130-400); RED BLOOD COUNT 3.86 M/uL (4.7-6.1); WHITE BLOOD COUNT 10.56 K/uL (4.8-10.8)
--- NOTE | 2017-03-16 11:19 | EMERGENCY ROOM VISIT NOTE ---
History Report prepared by Cece: Maya Lovell Under the Supervision of: Dr. Royal Banks M.D. First contact with patient: 10:41 Chief Complaint: FALL Stated Complaint: NYPOGLYCEMIA/UNRESPONSIVE History of Present Illness The patient is a 51 year old male who presents to the Emergency Room with complaints of an episode of a fall occurring just prior to arrival. The [ patient is unresponsive. The patient has frequent episodes of hypoglycemia. Per EMS, the patient fell and they believe he aspirated. Nursing states the patient was found face down in a pool of blood. Source of History: patient History Limited By: other Onset: just prior to arrival Position: other (generalized) Quality: other (fall) Timing: other (episode) Review of Systems ROS limited secondary to the patient's unresponsive status. 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 (14) End-stage renal disease on hemodialysis (15) ESRD (end stage renal disease) (16) Gram-positive cocci bacteremia (17) History of diabetic ulcer of foot (18) Hyperparathyroidism due to renal insufficiency (19) Hypertension (20) Hypothyroidism (21) infected hematoma R thigh (22) Loss of sensation (23) multipel pna, sepsis (24) multipel pna, sepsis (25) Pneumonia (26) Pulmonary edema (27) Tracheomalacia (28) venous stenosis AVF Family History FH: heart disease Social History Smoking Status: Never Smoker Alcohol Use: none Drug Use: none Marital Status: Housing Status: lives with family Occupation Status: disabled Current/Historical Medications Scheduled Amlodipine Besylate (Norvasc), 2.5 MG PO 4XWK Atorvastatin (Atorvastatin Calcium), 40 MG PO DAILY Bupropion Hcl (Wellbutrin Sr), 200 MG PO DAILY Cinacalcet (Sensipar), 30 MG PO DAILY Clopidogrel Bisulfate (Clopidogrel), 75 MG PO Q2D Fluticasone Furoate-Vilanterol (Breo Ellipta 200-25 Mcg/INH), 1 PUFF INH DAILY Furosemide (Furosemide), 80 MG PO BID Gabapentin (Gabapentin), 100 MG PO BID Insulin Aspart (novoLOG INSULIN PUMP ), 1 EA N/A UD Levothyroxine Sodium (Levothyroxine Sodium), 112 MCG PO DAILY Metoprolol Tartrate (Lopressor) (Lopressor), 50 MG PO BID Sevelamer Carbonate (Renvela), 1,600 MG PO TIDM Umeclidinium Harshaw (Incruse Ellipta), 1 PUFF INH DAILY Allergies Coded Allergies: Codeine (Verified Allergy, Intermediate, NAUSEA AND VOMITING, 03/16/17) QUESTIONABLE ALLERGY, STILL QUESTIONABLE BUT D/C SHONDA WITH COD 02/20/17 Tigecycline (Verified Allergy, Mild, ?RASH, 03/16/17) Penicillins (Verified Allergy, Unknown, PT HAS HAD MEFOXIN W/OUT A PROBLEM , 03/16/17) HAD MEFOXIN W/O PROBLEM Ciprofloxacin (Verified Adverse Reaction, Intermediate, nausea,vomiting, generalized weakness, 03/16/17) Morphine (Verified Adverse Reaction, Intermediate, TREMBLING,NAUSEA AND VOMITING, 03/16/17) Opioid Analgesics (Verified Adverse Reaction, Intermediate, "ALL RX PAIN MEDS CAUSE SEVERE NAUSEA", 03/16/17) Levofloxacin (Verified Adverse Reaction, Mild, Cipro/Levaquin (IV & po) = N & V, 03/16/17) Oxycodone (Verified Adverse Reaction, Unknown, N/V/D, 03/16/17) SPOKE WITH PATIENT ON 07/29/15, DOES NOT REMEMBER ANY DIFFICULTY BREATHING JUST HIT HIM HARD. Physical Exam Vital Signs Date Time Temp Pulse Resp B/P (MAP) Pulse Ox O2 Delivery O2 Flow Rate FiO2 03/16/17 13:51 90 18 100/62 97 Room Air 03/16/17 13:13 79 03/16/17 13:00 77 18 127/78 97 Nasal Cannula 1.0 03/16/17 11:32 72 16 152/95 98 Nasal Cannula 4.0 03/16/17 10:37 76 03/16/17 10:26 36.6 75 14 155/96 98 Room Air Physical Exam GENERAL: Patient unresponsive to voice and painful stimuli. SKIN: Diaphoretic. HEENT: Laceration to right forehead. After the patient was stabilized and laceration was cleaned, a 2 cm superficial laceration that does not need suturing was revealed. No hemotympanum, battles's sign or raccoon sign. Small amount of blood in nose no septal hematoma, no deformity. LUNGS: Rhonchi more present on right side. Clear to auscultation. No wheezes, no rales. HEART: 4/6 systolic murmur ABDOMEN: Obese. No masses, no rebound, no hepatomegaly or splenomegaly. EXTREMITIES: Fistula in left arm. No signs of trauma. No pedal or pretibial edema. No calf or thigh tenderness. NEUROLOGIC: Cranial nerves II-XII within normal limits. No gross motor sensory function deficits. Medical Decision & Procedures ER Provider Diagnostic Interpretation: Radiology results as stated below per my review and radiologist interpretation: HEAD WITHOUT CONTRAST (CT) FINDINGS: Dance Therapist topogram: Unremarkable. Ventricles and sulci normal in size. Bilateral cerebellar calcification unchanged from prior. No mass effect or midline shift. No hemorrhage or acute territorial infarct. No extra-axial fluid collection. Paranasal sinuses and mastoid air cells clear. Calvarium intact. Bilateral [place] lenses are absent. Minimal subcutaneous infiltration in the paramedian frontal region. IMPRESSION: 1. No acute intracranial abnormality. 2. Limited contusion of the right frontal superficial subcutaneous soft tissues. Electronically signed by: Xavier Green M.D. CHEST 2 VIEWS ROUTINE FINDINGS: Cardiac silhouette mildly enlarged, unchanged. Prominence of the bilateral volodymyr. Coarsened lung markings with a basilar predominance. Persistent left basilar opacity. No large effusion or pneumothorax. Scoliotic curvature of the spine. Upper abdomen normal. IMPRESSION: 1. Left basilar opacity not significantly changed from prior. This is on a background of coarsened lung markings with a basilar predominance. This could be seen in the setting of chronic aspiration. Electronically signed by: Xavier Green M.D. Laboratory Results 03/16/17 11:00 03/16/17 11:00 Test 03/16/17 11:00 03/16/17 12:08 Red Blood Count 3.86 M/uL (4.7-6.1) Mean Corpuscular Volume 105.4 fL (80-100) Mean Corpuscular Hemoglobin 35.2 pg (25-34) Mean Corpuscular Hemoglobin Concent 33.4 g/dl (32-36) RDW Standard Deviation 60.0 fL (36.4-46.3) RDW Coefficient of Variation 15.6 % (11.5-14.5) Mean Platelet Volume 10.0 fL (7.4-10.4) Anion Gap 11.0 mmol/L (3-11) Estimated GFR () 6.3 Estimated GFR (Non- 5.4 BUN/Creatinine Ratio 4.2 (10-20) Calcium Level 8.4 mg/dl (8.5-10.1) Troponin I 0.037 ng/ml (0-0.045) Bedside Glucose 95 mg/dl (70-99) Laboratory results as stated above per my review. Medications Administered Medications (Trade) Dose Ordered Sig/Etta Route Start Time Stop Time Status Last Admin Dose Admin Dextrose (Dextrose 50% 50ML Syringe) 50 ml STK-MED ONCE .ROUTE 03/16/17 10:46 03/16/17 10:47 DC 03/16/17 10:56 50 ML ECG Indication: syncope Rate (beats per minute): 81 Rhythm: normal sinus Findings: no acute ischemic change, no ectopy, other (prolonged QT) ED Course 1041: Past medical records reviewed. The patient was evaluated in room C7. A complete history and physical examination was performed. The patient's initial blood sugar was 32 and immediate recheck of blood sugar was 17. 1046: Ordered Dextrose 50 ml .ROUTE. 1151: The patient's blood sugar is 60. 1323: The patient is awake alert and acting appropriately. He denies taking extra insulin or missing any meals. 1417: The patient is feeling much better and is ready to go home. 1422: Upon reevaluation, the patient appeared to have improvement of his symptoms. I discussed today's findings with him. He verbalized agreement of the treatment plan. The patient was discharged home. Medical Decision I considered multiple diagnoses including hypoglycemia, aspiration, facial trauma, facial laceration, closed head injury. The patient was found with aground.Medics were concerned about possible aspiration. The patient also had a laceration to his scalp.The initial blood sugar in the field was very low. The patient was given D50 and it merary to 132. On arrival the patient's blood sugar dropped again and he required additional D50. The patient was fed and felt significantly better. Multiple blood sugars were obtained following that. The patient's pump was disconnected on arrival. It was reconnected prior to his departure. This is one of many visits for this patient who has very brittle diabetes. Despite numerous queries he has no idea why his blood sugar dropped. He is not sure if he ate breakfast or not. He has not changed his insulin dose. The patient has a chronic cough. Multiple labs and imaging were performed. Please see above. The patient's potassium is low. He is a dialysis patient and therefore I will not add potassium at this time. The patient has a chronic appearing infiltrate in his left lower lobe but this is not new. His white count is not elevated. The patient would like to return home. I believe that he is safe to return home. I do not believe he requires any antibiotics at this time. The laceration on his scalp does not require repair. Medication Reconcilliation Current Medication List: was personally reviewed by me Blood Pressure Screening Patient's blood pressure: Normal blood pressure Impression Primary Impression: Hypoglycemia Additional Impression: Hypokalemia Critical Care I have personally spent greater than 30 minutes of critical care time in the direct management of this patient. This includes bedside care, interpretation of diagnostic studies, and testing, discussion with consultants, patient, and family members, and other required patient management activities. This 30 minutes is in excess of all separately billable procedures. Scribe Attestation The scribe's documentation has been prepared under my direction and personally reviewed by me in its entirety. I confirm that the note above accurately reflects all work, treatment, procedures, and medical decision making performed by me. Departure Information Dispostion Home / Self-Care Referrals Devendra Bland M.D. (PCP) Forms HOME CARE DOCUMENTATION FORM, IMPORTANT VISIT INFORMATION Patient Instructions [facility] Additional Instructions Monitor your blood sugar closely. Eat at least 5 small meals a day. Follow-up with your family physician and with dialysis as scheduled. Problem Qualifiers
--- NOTE | 2017-03-16 11:23 | DIAGNOSTIC IMAGING REPORT ---
HEAD WITHOUT CONTRAST (CT) CLINICAL HISTORY: 51 years-old Male presenting with fell hit forehead, hypoglycemia. TECHNIQUE: Multidetector CT imaging of the head was performed without the use of intravenous contrast. IV contrast: None. A dose lowering technique was used consistent with the principles of ALARA (as low as reasonably achievable). COMPARISON: 09/02/2016. CT DOSE (mGy.cm): The estimated cumulative dose is 724.83 mGy.cm. FINDINGS: Senior Net Developer topogram: Unremarkable. Ventricles and sulci normal in size. Bilateral cerebellar calcification unchanged from prior. No mass effect or midline shift. No hemorrhage or acute territorial infarct. No extra-axial fluid collection. Paranasal sinuses and mastoid air cells clear. Calvarium intact. Bilateral [place] lenses are absent. Minimal subcutaneous infiltration in the paramedian frontal region. IMPRESSION: 1. No acute intracranial abnormality. 2. Limited contusion of the right frontal superficial subcutaneous soft tissues. Electronically signed by: Xavier Green M.D. 03/16/2017 11:22 AM Dictated Date/Time: 03/16/2017 11:19 AM
[2017-03-16 11:51] LABS: BLOOD UREA NITROGEN 42 mg/dl (7-18); BUN/CREATININE RATIO 4.2 (10-20); CALCIUM 8.4 mg/dl (8.5-10.1); CARBON DIOXIDE 28 mmol/L (21-32); CHLORIDE 97 mmol/L (98-107); CREATININE 9.92 mg/dl (0.60-1.40); GLUCOSE 217 mg/dl (70-99); POTASSIUM 2.9 mmol/L (3.5-5.1); SODIUM 136 mmol/L (136-145)
--- NOTE | 2017-03-16 12:52 | DIAGNOSTIC IMAGING REPORT ---
CHEST 2 VIEWS ROUTINE CLINICAL HISTORY: 51 years-old Male presenting with ? aspiration. TECHNIQUE: Portable upright AP view of the chest was obtained. COMPARISON: 02/19/2017. FINDINGS: Cardiac silhouette mildly enlarged, unchanged. Prominence of the bilateral volodymyr. Coarsened lung markings with a basilar predominance. Persistent left basilar opacity. No large effusion or pneumothorax. Scoliotic curvature of the spine. Upper abdomen normal. IMPRESSION: 1. Left basilar opacity not significantly changed from prior. This is on a background of coarsened lung markings with a basilar predominance. This could be seen in the setting of chronic aspiration. Electronically signed by: Xavier Green M.D. 03/16/2017 12:51 PM Dictated Date/Time: 03/16/2017 12:41 PM
[2017-03-16 15:00] VITALS: BP 108/67; PULSE 90; O2SAT 96
== END 2017-03-16 15:00 | disposition home or self-care (01) ==
LOC: EDBD 10:26 → C.EDC 10:27
DX: E11.649 Type 2 diabetes mellitus with hypoglycemia without coma (principal); E87.6 Hypokalemia; S01.81XA Laceration without foreign body of other part of head, initial encounter; W19.XXXA Unspecified fall, initial encounter; R05 Cough; I12.0 Hypertensive chronic kidney disease with stage 5 chronic kidney disease or end stage renal disease; E11.43 Type 2 diabetes mellitus with diabetic autonomic (poly)neuropathy; N18.6 End stage renal disease; E11.22 Type 2 diabetes mellitus with diabetic chronic kidney disease; J44.9 Chronic obstructive pulmonary disease, unspecified; F31.9 Bipolar disorder, unspecified; N25.81 Secondary hyperparathyroidism of renal origin; E03.9 Hypothyroidism, unspecified; D64.9 Anemia, unspecified; J39.8 Other specified diseases of upper respiratory tract; Z99.2 Dependence on renal dialysis; Z79.4 Long term (current) use of insulin; Z96.41 Presence of insulin pump (external) (internal)

== ENCOUNTER 2017-03-25 06:49 | Day surgery (SDC) | payer OTHER, BC ==
[~2017-03-25] VITALS: Ht 177.8 cm; Wt 85.9 kg
--- NOTE | 2017-03-25 05:54 | History and Physical ---
History & Physical Date of Service Mar 25, 2017. History & Physical Chief Complaint: Malfunctioning left upper arm fistula History of Present Illness: The patient is a 46 year old male who has had trouble with his dialysis runs via his woody fistula. Allergies: Coded Allergies: Codeine (Verified Allergy, Mild, QUESTIONABLE, 12/08/09) QUESTIONABLE ALLERGY Morphine (Verified Adverse Reaction, Intermediate, TREMBLING, 12/08/09) Penicillins (Verified Allergy, Unknown, PT HAS HAD MEFOXIN W/OUT A PROBLEM , 12/08/09) HAD MEFOXIN W/O PROBLEM Opioid Analgesics (Verified Adverse Reaction, Intermediate, "ALL RX PAIN MEDS CAUSE SEVERE NAUSEA", 12/08/09) Surgical/medical Hx: Hx Cardiac Surgery: No Hx Abdominal Surgery: Yes (APPY) Hx Cancer Surgery: No Hx Thoracic Surgery: No Hx Orthopedic: Yes (LEFT KNEE MENISCUS) Hx Urinary Tract Surgery: No HX Other Surgery: Yes (CATARACT/RETINOPATHY/L AND R ARM AVF) Past Medical History: Arthritis, Depression, Diabetes, Hypertension, Kidney Disease, Thyroid Disease Social Hx: Smoking Status: Current every day smoker Review of Systems: Constitutional: No chills, No diaphoresis, No fever, No malaise, No weakness, No weight gain, No weight loss, No sweats, No fatigue, No problem reported Skin: No change in color, No change in hair/nails, No dryness, No lesions, No lumps, No rash, No abnormal mole, No problem reported Eyes: No discharge, No blurred vision, No double vision, No eye pain, No tearing , No itching, No photophobia, No redness, No visual changes, No dryness, No irritation, No problem reported ENMT: No dental pain, No loss of hearing, No epistaxis, No ear discharge, No ear pain, No gum swelling, No mouth pain, No mouth swelling, No nasal congestion , No nasal pain, No rhinorrhea, No stridor, No tinnitus, No sore throat, No throat swelling, No problem reported Respiratory: No cough, No cyanosis, No LEE, No hemoptysis, No orthopnea, No PND , No short of breath, No sputum production, No stridor, No wheezing, No dyspnea , No problem reported Cardiovascular: No chest pain, No chest tightness, No chest pressure, No palpitations, No syncope, No diaphoresis, No edema, No intermittent claudication , No orthopnea, No cyanosis, No mumur, No lightheadedness, No paroxysmal nocturnal dyspnea, No problem reported Gastrointestinal: No abdominal pain, No constipation, No diarrhea, No nausea, No vomiting, No anorexia, No appetite changes, No belching, No flatulence, No food intolerance, No hematemesis, No hemorrhoids, No hematochezia, No stool changes, No heartburn, No indigestion, No dysphagia, No rectal bleeding, No problem reported Genitourinary - Male: + problem reported (renal failure) Musculoskeletal: No back pain, No gout, No joint pain, No joint swelling, No muscle pain, No muscle stiffness, No muscle weakness, No neck pain, No problem reported Psychiatric: No anxiety, No alcohol abuse, No auditory hallucinations, No depression, No drug abuse, No homicidal ideation, No mood changes, No suicidal ideation, No visual hallucinations, No problem reported Phsical Exam: Constitutional: General Apperance: heathly-appearing, well-nourished, well-developed Level of Distress: NAD Ambulation: ambulating normal Psychiatric: Mental Status: active & alert, normal mood, normal affect Orientation: oriented except where noted, to time, to place, to person Memory: recent memory normal, remote memory normal Eyes: EOM: EOMI ENMT: normal ENT inspection Neck: supple, trachea midline Lungs: Auscuitation: breath sounds normal Cardiovascular: Heart Auscultation: RRR Peripheral Pulses: Superficial Temporal Artery: normal on the left, normal on the right Carotid Pulse: normal on the left, normal on the right Radial Pulse: normal on the left, normal on the right Femoral Pulse: normal on the left, normal on the right Popliteal Pulse: absent on the left, absent on the right Posterior Tibialis Pulse: absent on the left, present on the right Dorsalis Pedis Pulse: absent on the left, absent on the right Abdomen: Inspection & Palpation: soft Extremities: Upper Right: no cyanosis, no edema, no varicosities, no palpable cord, no clubbing, no ulcers, no mottling Upper Left: no cyanosis, no edema, no varicosities, no palpable cord, no clubbing, no ulcers, no mottling Lower Right: no cyanosis, no edema, no varicosities, no palpable cord, no clubbing, no ulcers, no mottling Lower Left: non healing ischemic ulcer left foot Neurologic: Cranial Nerves: grossly intact Sensation: grossly intact Assessment and Plan: Imp: Malfunctioning woody avf Plan: Recommend a fistulogram with possible intervention if needed. He understands the risks options and benefits and agrees to the procedure.
[~2017-03-25 06:49] MED LIST changes: -AZIT-57 PO; +CLINDAMYCIN 600 MG/54 ML D5W IV SCH; +D5W AND 1/4NSS 1000 ML IV SCH; -GFNSR600 PO; +SODIUM CHLORIDE 0.9% 1000ML 1,000 ML IV SCH
[2017-03-25 07:35] VITALS: BP 136/84; PULSE 88; TEMP 36.8; O2SAT 95; Ht 177.8 cm; Wt 85.9 kg
[2017-03-25 08:38] LABS: CALCIUM 8.4 mg/dl (8.5-10.1); CREATININE 10.5 mg/dl (0.60-1.40); POTASSIUM 4.5 mmol/L (3.5-5.1)
[2017-03-25] MEDS ORDERED: MIDAZOLAM HCL 1 MG/ML 2ML VIAL ONE (08:44)
[2017-03-25] MEDS ORDERED: FENTANYL CITRATE INJ 50 MCG/1 ML 2 ML VIAL ONE (08:45)
[2017-03-25] MEDS ORDERED: OPTIRAY 300 IV ONE (09:41)
[2017-03-25] MEDS ORDERED: LIDOCAINE HCL 1% 20 ML VIAL INJ ONE (09:41)
--- NOTE | 2017-03-25 09:47 | [facility] Post Operative Brief Note ---
Immediate Operative Summary Operative Date Mar 25, 2017. Pre-Operative Diagnosis Malfunctioning Fistula Post-Operative Diagnosis Same Procedure(s) Performed Fistulogram, Percutaneous Transluminal Angioplasty Venous Surgeon Dr. Thomas Senior Controller Surgeon(s) None Estimated Blood Loss 15 Findings no residual stenosis Specimens None Anesthesia Local with sedation Complication(s) None Disposition
[2017-03-25 09:55] VITALS: BP 100/68; PULSE 84; TEMP 36.8; O2SAT 95
--- NOTE | 2017-03-25 09:57 | Discharge Instructions ---
Discharge Instructions Date of Service Mar 25, 2017. Visit Reason for Visit: End Stage Renal Disease On Hemodialysis Discharge Discharge Diagnosis / Problem: Malfunctioning fistula Discharge Goals Goal(s): Therapeutic intervention Activity Recommendations Activity Limitations: per Instructions/Follow-up section Anesthesia . Post Anesthesia Instructions: If you have had General Anesthesia or IV Sedation: * Do not drive today. * Resume driving when surgeon permits. * Do not make important decisions or sign legal documents today. * Call surgeon for: 1. Temperature elevations greater than 101 degrees F. 2. Uncontrollable pain. 3. Excessive bleeding. 4. Persistent nausea and vomiting. 5. Medication intolerance (nausea, vomiting or rash). * For nausea and vomiting use only clear liquids such as: tea, soda, bouillon until nausea subsides, then gradually increase diet as tolerated. * If you have any concerns or questions, call your surgeon's office. If physician is unavailable and it is an emergency, call 911 or go to the nearest emergency room. . Instructions / Follow-Up Instructions / Follow-Up Call [phone] to schedule a follow up appointment if one not already scheduled. SPECIAL CARE INSTRUCTIONS: Medications: * Continue to take your medications as directed. If you have been given a prescription for Plavix, please fill it immediately and take as directed. Incision Care: * Your puncture site may have some bruising and minor swelling for about one week. * You will have a small dressing covering your puncture site. You may remove the dressing after 24 hours and shower. You may let the warm soapy water run over it, but be sure to dry the puncture site well and keep it dry. * DO NOT IMMERSE THE INCISION IN A TUB/POOL/etc. UNTIL HEALED. * Puncture sites should be kept covered with a band-aid until it begins to heal. Restrictions: * Depending on whether you leg or arm was punctured to access the arteries, you will be required to lay flat, hold your arm still, or both, for about 4 hours after the procedure to prevent bleeding. * Limit your activity for the first 48 hours. You may walk and go up and down steps. Avoid excessive bending or movement at the puncture site. Possible Complications: * Excessive Swelling - after blood flow is improved you may notice increased swelling in the lower legs. This is a normal response. This usually depends on the amount of blockages in the leg, how long they have been there prior to your procedure and how much blood flow was restored. Elevating your legs will help to improve this. Please notify our office ([phone] ) if the swelling does not go away after lying in bed overnight. * Infection/Drainage/Bleeding - Drainage or bleeding from the puncture site should be minimal. If you have excessive bleeding or drainage, call our office ([phone]) right away. * Pain - You may experience some mild pain or soreness at your puncture site. If your pain does not improve, please contact our office ([phone]). Call your doctor and seek emergent treatment if you develop: * Temperature above 101 degrees * Any fever or chills * Any redness or purulent drainage from the puncture site * Any new dusky/blue colored toes or feet with coolness or sharp or aching pain. SKIN IRRITATION: * You may experience some redness and/or swelling in the area where radiation was administered. If any skin irritation occurs, please contact your family physician. FOLLOW UP VISIT: Keep any scheduled doctor appointments. Diet Recommendations Recommended Home Diet: resume previous diet Procedures Procedures Performed: Fistulogram, Percutaneous Transluminal Angioplasty Venous Pending Studies Studies pending at discharge: no Medical Emergencies . Who to Call and When: Medical Emergencies: If at any time you feel your situation is an emergency, please call 911 immediately. . Non-Emergent Contact Non-Emergency issues call your: Surgeon . . "Provider Documentation" section prepared by Noah Thomas. .
[2017-03-25] MEDS ORDERED: EpHEDrine SULFATE INJ 50 MG/ML AMP IV PRN (10:00)
[2017-03-25] MEDS ORDERED: ATROPINE SULFATE 0.1 MG/ML 5ML SYR IV PRN (10:00)
--- NOTE | 2017-03-25 10:05 | [facility] Operative Report ---
Operative Report Operative Date Mar 25, 2017. Pre-Operative Diagnosis Malfunctioning Fistula Post-Operative Diagnosis Same Procedure(s) Performed Fistulogram, Percutaneous Transluminal Angioplasty Venous Surgeon Dr. Thomas Noise Tester Surgeon(s) None Estimated Blood Loss 15 Findings venous stenosis, no residual post GAMBLING COUNSELLOR Specimens None Anesthesia Local with sedation Complication(s) None Disposition Indications This is a 51-year-old male with a left forearm AV fistula. He was having decreased flows through the fistula. Fistulogram and possible intervention was recommended. I have discussed the risks options and benefits of the procedure with the patient. The patient understands the risks options and benefits and agrees to the procedure. Description of Procedure The patient was taken to the angiogram suite and placed in the supine position. The left arm was then prepped and draped in a sterile manner. Local anesthetic was administered and a percutaneous puncture was then made of the proximal portion of the left arm AV fistula using micropuncture technique. Micropuncture wire and sheath were then inserted. A fistulogram was then performed. Fistulogram showed a patent fistula from the wrist to just below the antecubital fossa. At that point there was a 4 cm long severe stenosis of 90% or greater. The rest of the outflow in the upper arm and chest was normal. The micropuncture sheath was then exchanged over a wire to a 6 Swedish sheath. An 035 Glidewire was inserted and passed through the stenosis. The stenosis was balloon first using a 5 x 8 balloon followed by a 6 by 8 and followed finally by an 8 x 6 balloon. Good results were noted. No residual stenosis was seen. The sheath was then pulled and pressure was applied. Adequate hemostasis was obtained. The patient left the angiogram suite in good condition and tolerated the procedure well. I attest to the content of the Intraoperative Record and any orders documented therein. Any exceptions are noted below.
[2017-03-25 10:25] VITALS: BP 115/71; PULSE 87; TEMP 36.5; O2SAT 94
--- NOTE | 2017-03-25 11:32 | Anesthesiology Progress Note ---
Anesthesia Post Op Note Date & Time Mar 25, 2017 at 11:32 Vital Signs Pain Intensity: 0 Vital Signs Past 12 Hours Date Time Temp Pulse Resp B/P (MAP) Pulse Ox O2 Delivery O2 Flow Rate FiO2 03/25/17 10:25 36.5 87 20 115/71 94 Room Air 03/25/17 09:55 36.8 84 20 100/68 95 Room Air 03/25/17 07:35 36.8 88 18 136/84 (101) 95 Room Air Notes Mental Status: alert / awake / arousable, participated in evaluation Pt Amnestic to Procedure: No Nausea / Vomiting: adequately controlled Pain: adequately controlled Airway Patency, RR, SpO2: stable & adequate BP & HR: stable & adequate Hydration State: stable & adequate Anesthetic Complications: no major complications apparent
== END 2017-03-25 10:50 | disposition home or self-care (01) ==
LOC: C.ACU 06:49
PROVIDERS: ATTEND Surgery Vascular Surgery
DX: T82.858A Stenosis of other vascular prosthetic devices, implants and grafts, initial encounter (principal); Y83.8 Other surgical procedures as the cause of abnormal reaction of the patient, or of later complication, without mention of misadventure at the time of the procedure; F32.9 Major depressive disorder, single episode, unspecified; F41.9 Anxiety disorder, unspecified; I10 Essential (primary) hypertension; F17.200 Nicotine dependence, unspecified, uncomplicated; I25.2 Old myocardial infarction; I25.10 Atherosclerotic heart disease of native coronary artery without angina pectoris; E11.9 Type 2 diabetes mellitus without complications; Z79.899 Other long term (current) drug therapy; Z98.890 Other specified postprocedural states; Z90.89 Acquired absence of other organs; Z88.5 Allergy status to narcotic agent; Z88.0 Allergy status to penicillin

== ENCOUNTER 2017-04-05 08:55 | Emergency (ER) | payer OTHER, BC ==
[~2017-04-05] VITALS: Ht 177.8 cm; Wt 90.0 kg
[~2017-04-05 08:55] MED LIST changes: -CLINDAMYCIN 600 MG/54 ML D5W IV SCH; -D5W AND 1/4NSS 1000 ML IV SCH; -SODIUM CHLORIDE 0.9% 1000ML 1,000 ML IV SCH
[2017-04-05 08:59] VITALS: Ht 177.8 cm; Wt 90.0 kg
[2017-04-05] MEDS ORDERED: GLUCAGON FOR INJ 1 MG VIAL ONE (09:01)
[2017-04-05] MEDS ORDERED: NZRCR TOP (09:04)
[2017-04-05] MEDS ORDERED: HYDCR25 TOP (09:04)
--- NOTE | 2017-04-05 09:20 | EMERGENCY ROOM VISIT NOTE ---
History Report prepared by Cece: Enrique Goddard Under the Supervision of: Dr. Denny Fisher M.D. First contact with patient: 08:55 Stated Complaint: DIABETIC - HYPOGLYCEMIA History of Present Illness The patient is a 51 year old male who presents to the Emergency Room via EMS with complaints of hypoglycemia that began this morning when the patient woke up. He has a past medical history of diabetes and multiple episodes of hypoglycemia. He states that when attempting to get on the bus to go to his dialysis appointment, he was unable to arrive on time to make it. He then called EMS secondary to feeling hypoglycemia. Upon arrival, medics state that his blood sugar was 28 so they gave him glucagon. The patient is now requesting food and a ride to dialysis. He feels mildly weak at this time. He denies any other abnormal symptoms at this time. Source of History: patient Onset: this morning Position: other (global) Symptom Intensity: BSG 28 Quality: other (hypoglycemia) Timing: other (improving) Modifying Factors (Relieving): other (glucagon) Associated Symptoms: + weakness Note: He denies any other abnormal symptoms at this time. Review of Systems See HPI for pertinent positives & negatives. A total of 10 systems reviewed and were otherwise negative. 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 (14) End-stage renal disease on hemodialysis (15) ESRD (end stage renal disease) (16) Gram-positive cocci bacteremia (17) History of diabetic ulcer of foot (18) Hyperparathyroidism due to renal insufficiency (19) Hypertension (20) Hypothyroidism (21) infected hematoma R thigh (22) Loss of sensation (23) multipel pna, sepsis (24) multipel pna, sepsis (25) Pneumonia (26) Pulmonary edema (27) Tracheomalacia (28) venous stenosis AVF Family History FH: heart disease Social History Smoking Status: Former Smoker Alcohol Use: none Drug Use: none Marital Status: Housing Status: lives with family Occupation Status: disabled Current/Historical Medications Scheduled Amlodipine Besylate (Norvasc), 2.5 MG PO 4XWK Atorvastatin (Lipitor), 40 MG PO DAILY Bupropion Hcl (Wellbutrin Sr), 200 MG PO DAILY Cinacalcet (Sensipar), 30 MG PO DAILY Clopidogrel Bisulfate (Clopidogrel), 75 MG PO Q2D Fluticasone Furoate-Vilanterol (Breo Ellipta 200-25 Mcg/INH), 1 PUFF INH DAILY Furosemide (Furosemide), 80 MG PO BID Gabapentin (Gabapentin), 100 MG PO BID Insulin Aspart (novoLOG INSULIN PUMP ), 1 EA N/A UD Levothyroxine Sodium (Levothyroxine Sodium), 112 MCG PO DAILY Metoprolol Tartrate (Lopressor) (Lopressor), 50 MG PO BID Sevelamer Carbonate (Renvela), 1,600 MG PO TIDM Umeclidinium [place] (Incruse Ellipta), 1 PUFF INH DAILY Miscellaneous Medications Hydrocortisone (Hydrocortisone) Ketoconazole (Ketoconazole) Allergies Coded Allergies: Codeine (Verified Allergy, Intermediate, NAUSEA AND VOMITING, 04/05/17) QUESTIONABLE ALLERGY, STILL QUESTIONABLE BUT MD D/C SHONDA WITH COD 02/20/17 Tigecycline (Verified Allergy, Mild, ?RASH, 04/05/17) Penicillins (Verified Allergy, Unknown, PT HAS HAD MEFOXIN W/OUT A PROBLEM , 04/05/17) HAD MEFOXIN W/O PROBLEM Ciprofloxacin (Verified Adverse Reaction, Intermediate, nausea,vomiting, generalized weakness, 04/05/17) Morphine (Verified Adverse Reaction, Intermediate, TREMBLING,NAUSEA AND VOMITING, 04/05/17) Opioid Analgesics (Verified Adverse Reaction, Intermediate, "ALL RX PAIN MEDS CAUSE SEVERE NAUSEA", 04/05/17) Levofloxacin (Verified Adverse Reaction, Mild, Cipro/Levaquin (IV & po) = N & V, 04/05/17) Oxycodone (Verified Adverse Reaction, Unknown, N/V/D, 04/05/17) SPOKE WITH PATIENT ON 07/29/15, DOES NOT REMEMBER ANY DIFFICULTY BREATHING JUST HIT HIM HARD. Physical Exam Vital Signs Date Time Temp Pulse Resp B/P (MAP) Pulse Ox O2 Delivery O2 Flow Rate FiO2 04/05/17 09:53 36.8 71 18 136/88 100 04/05/17 09:51 71 18 136/88 100 Room Air 04/05/17 08:59 36.8 75 18 141/99 100 Room Air Physical Exam GENERAL: Patient is a healthy-appearing well-nourished male HEAD: Normocephalic atraumatic EYES: Ocular movements intact pupils equal and react to light OROPHARYNX mucous membranes are moist no exudates present no erythema or edema present NECK: Supple no nuchal rigidity CHEST: Good equal expansion LUNGS: Clear and equal to auscultation CARDIAC: Normal S1 and S2 ABDOMEN: Soft nontender no guarding BACK: No CVA tenderness EXTREMITIES: No pain upon palpation normal muscle strength in all groups no clubbing cyanosis or edema NEURO: Patient is following commands and answering questions appropriately. Alert and oriented x3 Cranial Nerves 2-12 grossly intact Medical Decision & Procedures Laboratory Results Test 04/05/17 09:49 Bedside Glucose 123 mg/dl (70-99) ED Course 0855: Past medical records reviewed. The patient was evaluated in room A3. A complete history and physical examination was performed. 0857: After entering the room, the patient states that he does not want anything done today in the ER. He would like some food and then a ride to his Dialysis appointment. 0900: Upon reexamination the patient is resting. I discussed results and treatment plan with the patient. He verbalizes agreement and understanding. The patient is ready for discharge. Medical Decision Differential diagnosis: Etiologies such as metabolic, infection, hypo/hyperglycemia, electrolyte abnormalities, cardiac sources, intracerebral event, toxicologic, neurologic, as well as others were entertained. This is a 51-year-old male who presents emergency department after hypoglycemic episode at home. The patient does not wish for us to do anything. He is requesting breakfast and is refusing treatment. He will be given a ride to dialysis. Medication Reconcilliation Current Medication List: was personally reviewed by me Blood Pressure Screening Patient's blood pressure: Elevated blood pressure Blood pressure disposition: Referred to PCP Impression Primary Impression: Hypoglycemia Scribe Attestation The scribe's documentation has been prepared under my direction and personally reviewed by me in its entirety. I confirm that the note above accurately reflects all work, treatment, procedures, and medical decision making performed by me. Departure Information Dispostion Other Referrals Devendra Bland M.D. (PCP) Forms HOME CARE DOCUMENTATION FORM, IMPORTANT VISIT INFORMATION, WORK / SCHOOL INSTRUCTIONS Patient Instructions [facility] Additional Instructions Go directly to dialysis You have been examined and treated today on an emergency basis only. This is not a substitute for, or an effort to provide, complete comprehensive medical care. It is impossible to recognize and treat all injuries or illnesses in a single emergency department visit. It is therefore important that you follow up closely with Dr Bland. Call as soon as possible for an appointment. Thank you for your time and consideration. I look forward to speaking with you again soon. Please don't hesitate to call us if you have any questions.
[2017-04-05 09:53] VITALS: BP 136/88; PULSE 71; TEMP 36.8; O2SAT 100
== END 2017-04-05 09:54 | disposition home or self-care (01) ==
LOC: C.EDA 08:55 → EDBD 08:55 → C.EDA 09:54
DX: E10.649 Type 1 diabetes mellitus with hypoglycemia without coma (principal); I12.9 Hypertensive chronic kidney disease with stage 1 through stage 4 chronic kidney disease, or unspecified chronic kidney disease; E10.42 Type 1 diabetes mellitus with diabetic polyneuropathy; E21.3 Hyperparathyroidism, unspecified; N18.9 Chronic kidney disease, unspecified; E03.9 Hypothyroidism, unspecified; F31.9 Bipolar disorder, unspecified; J44.9 Chronic obstructive pulmonary disease, unspecified; D64.9 Anemia, unspecified; Z87.01 Personal history of pneumonia (recurrent); Z87.891 Personal history of nicotine dependence; Z99.2 Dependence on renal dialysis; Z79.4 Long term (current) use of insulin; Z79.899 Other long term (current) drug therapy

== ENCOUNTER 2017-04-18 08:15 | Day surgery (SDC) | payer OTHER, BC ==
[2017-04-18] VITALS (7 sets, daily range): BP systolic 76–150; BP diastolic 47–88; PULSE 76–88; TEMP 36.4–37.1; O2SAT 93–95; Ht 177.8 cm; Wt 83.1 kg
[~2017-04-18] VITALS: Ht 177.8 cm; Wt 83.1 kg
[~2017-04-18 08:15] MED LIST changes: +HYDCR25 TOP; +NZRCR TOP
--- NOTE | 2017-04-18 09:04 | History and Physical ---
History & Physical Date of Service Apr 18, 2017. History & Physical 51-year-old gentleman here for bronchoscopy or evaluation of relapsing polychondritis vs. tracheobronchial malacia, chronic atelectasis, severe COPD and history of pulmonary embolism: The patient is doing well today but continues to have dyspnea on exertion as well as intermittent nonproductive cough. Over the last year the patient has really worked on his physical status working with the physical therapy team in notes he is able to walk most of the day throughout his house and not uses wheelchair. He still becomes anxious when leaving the house and uses wheelchair more at this time as he is also prone to have episodes of severe hypoglycemia with associated loss of consciousness. We have attempted to perform bronchoscopy in the past but on the morning of the bronchoscopy the patient was severely hypoglycemic and I canceled the procedure. Recently the patient underwent shunt evaluation/change for his dialysis access and the patient has figured out a new regimen to help decrease his episodes of hypoglycemia which should occur during the previously stated procedure. 1) Modified Barium Swallow (09/10/16) No penetration or aspiration noted Subtle dysmotility noted 2) Speech pathology (08/25/16) Recommendations Mr. Clark is recommended to receive a videofluoroscopy to further assess swallow functioning. He is recommended to receive services weekly for 45 minutes. 3) Cardiac Echo (09/08/16) LV: EF: 50-55%, mild LVH, grade 1 diastolic dysfunction, hypokinetic inferior wall RV: poorly visualized AV: moderate stenosis 4) PFT (05/26/16) Spirometry: sever OVD FEV1: 36% Bronchodilator: no significant response noted Volumes: decreased VC at 54% DLCO: 45% with DLCO/VA: 99% 5) CT Thorax non-contrast ( 03/26/16) bilateral pulmonary consolidations in the RLL, LLL and Lingula Mild mediastinal lymphadenopathy 6) Pulmonary Microbiology Bronchial washing/right lower lobe 09/18/2014: Aurora albicans, other yeast species Bronchial washing/right and left lower lobe 08/01/2015: Achromobacter Xylosoxidans Bronchial washing/right and left lower lobe 08/01/2015: Yeast species 7) Bronchoscopy 09/18/2014 performed by Justice Almazan Upper airway structures: Showing redundant soft tissue Upper trachea: Within normal limits Lower trachea: Evidence of broad-based tracheal malacia was significant dynamic collapse at the level the bj Left tracheobronchial tree: Significant thick secretions anatomically within normal limits Right bronchial tree: Narrowing at the bj and showed thick purulent secretions of the right lower lobe 8) video swallow 09/10/2016 No penetration or aspiration noted Review of Systems Constitutional: negative. Eyes: negative. ENT: negative. Cardiovascular: negative. Respiratory: as noted in HPI. Gastrointestinal: negative. Genitourinary: negative. Musculoskeletal: negative. Integumentary: negative. Neurological: negative. Psychiatric: anxiety. Endocrine: negative. Hematologic/Lymphatic: negative. Active Problems 1. Abnormal CT scan (R93.8) 2. Acute bronchitis (J20.9) 3. Anemia (D64.9) 4. Aortic stenosis, supravalvular (Q25.3) 5. Aortic valve sclerosis (I35.8) 6. Arteriosclerosis of coronary artery (I25.10) 7. Arteriovenous fistula (I77.0) 8. Aspiration pneumonia due to food (regurgitated) (J69.0) 9. Bilateral hand pain (M79.641,M79.642) 10. Bilateral leg weakness (R29.898) 11. Bruit (R09.89) 12. Carotid artery plaque (I65.29) 13. Chronic bronchitis (J42) 14. History of Chronic foot ulcer (L97.509) 15. Chronic obstructive pulmonary disease (J44.9) 16. Conjunctivitis (H10.9) 17. Cough (R05) 18. Depression (F32.9) 19. Diabetes mellitus type 1 (E10.9) 20. Diabetic nephropathy associated with type 1 diabetes mellitus (E10.21) 21. Diabetic peripheral neuropathy associated with type 1 diabetes mellitus ( E10.42) 22. Dyslipidemia (E78.5) 23. Dysphagia (R13.10) 24. Encounter for screening for malignant neoplasm of prostate (Z12.5) 25. ESRD (end stage renal disease) (N18.6) 26. 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 Hemodialysis patient (Z99.2) 28. History of acute heart failure (Z86.79) 29. History of cardiac arrest (Z86.74) 30. Hypertension (I10) 31. Hypoglycemia unawareness in type 1 diabetes mellitus (E10.649) 32. Hypothyroidism (E03.9) 33. Impotence, organic (N52.9) 34. Loss of sensation (R20.0) 35. 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 Mediastinal adenopathy (R59.0) 37. Mitral regurgitation (I34.0) 38. 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 Obstructive sleep apnea (G47.33) 40. Other depression due to general medical condition (F06.31) 41. PAD (peripheral artery disease) (I73.9) 42. Proliferative diabetic retinopathy associated with type 1 diabetes mellitus (E10.3599) 43. Pseudomonas infection (B96.5) 44. Pulmonary emboli (I26.99) 45. Rash and nonspecific skin eruption (R21) 46. 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 Secondary hyperparathyroidism of renal origin (N25.81) 48. Severe muscle deconditioning (R29.898) 49. Sinus congestion (R09.81) 50. Status post transmetatarsal amputation of left foot (Z89.432) 51. Tracheomalacia (J39.8) 52. Ventricular septal defect (Q21.0) Past Medical History 1. History of Achromobacter pneumonia (J15.6) 2. History of Acute Osteomyelitis Of The Right Foot 3. History of Cellulitis and abscess of leg (L03.119,L02.419) 4. History of Chronic foot ulcer (L97.509) 5. History of Closed wound of head, initial encounter (S09.90XA) 6. History of Cough (R05) 7. 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 History of acute heart failure (Z86.79) 9. History of bronchitis (Z87.09) 10. History of cardiac arrest (Z86.74) 11. History of head injury (Z87.828) 12. History of osteomyelitis (Z87.39) 13. History of pneumonia (Z87.01) 14. History of pneumonia (Z87.01) 15. History of pneumonia (Z87.01) 16. History of Methicillin susceptible Staphylococcus aureus infection (A49.01) 17. History of Nasal fracture (S02.2XXA) 18. History of Open wound of foot (S91.309A) 19. History of Respiratory failure with hypoxia (J96.91) 20. History of Wound infection (T14.8XXA,L08.9) Surgical History 1. History of Amputation Of The Foot By Disarticulation At The Ankle 2. History of Appendectomy 3. History of Arteriovenous Surgery Open Revision Of AV Fistula 4. History of Arteriovenous Surgery Open Revision Of AV Fistula 5. History of Knee Surgery 6. History of Peripheral Arterial Disease (PAD) Rehabilitation 7. History of INSPECTOR WATCH ASSEMBLY Venous 8. History of PTCA 9. History of Surgery Left Foot Amputation MTP First Toe 10. History of Surgery Left Foot Amputation Transmetatarsal Family History 1. Family history of Breast Cancer 2. Family history of Prostate Cancer Social History Denied: History of Alcohol Use (History) Currently On Disability Denied: History of Drug Use Former smoker (Z87.891) Marital History - Currently Current Meds 1. Atorvastatin Calcium 40 MG Oral Tablet; TAKE 1 TABLET BY MOUTH ONCE DAILY AT BEDTIME; Therapy: 33Sui4956 to (Last Rx:[id number]) Requested for: 24Nov2016 Ordered 2. Plavix 75 MG Oral Tablet; TAKE 1 TABLET EVERY OTHER DAY; Therapy: (Recorded:15Vts4513) to Recorded 3. Breo Ellipta 200-25 MCG/INH Inhalation Aerosol Powder Breath Activated; inhale 1 puff daily; Therapy: 16Jul2015 to (Last Rx:02Sep2016) Requested for: 02Sep2016 Ordered 4. Incruse Ellipta 62.5 MCG/INH Inhalation Aerosol Powder Breath Activated; INHALE 1 PUFF DAILY; Therapy: 24Mar2015 to (Last Rx:02Sep2016) Requested for: 02Sep2016 Ordered 5. Albuterol Sulfate (2.5 MG/3ML) 0.083% Inhalation Nebulization Solution; USE 1 UNIT DOSE IN NEBULIZER 4 TIMES DAILY; Therapy: 58Gah3996 to (Last Rx:[id number]) Ordered 6. Bacitracin 500 UNIT/GM Ophthalmic Ointment; APPLY SMALL AMOUNT OF OINTMENT TO AFFECTED EYE 2-3 TIMES DAILY; Therapy: 17Feb2017 to (Last Rx:17Feb2017) Requested for: 17Feb2017 Ordered 7. BuPROPion HCl ER (SR) 200 MG Oral Tablet Extended Release 12 Hour; Take 1 tablet daily; Therapy: 46Gyz3598 to Requested for: 15Dec2016 Recorded 8. NovoLOG 100 UNIT/ML Subcutaneous Solution; 0.6 units EVERY 1 HOUR-per [facility] Discharge. TDD 60 units; Therapy: 02Aug2014 to (Evaluate:21Mar2017) Requested for: 18Feb2017; Last Rx:[id number] Ordered 9. OneTouch Ultra Blue In Vitro Strip; TEST BLOOD SUGAR 10 TIMES A DAY WITH INSULIN PUMP TYPE 1 DIABETES MELLITUS; Therapy: 21Jan2011 to (Evaluate:23Jul2017) Requested for: 24Jan2017; Last Rx:24Jan2017 Ordered 10. Gabapentin 100 MG Oral Capsule; TAKE 1 CAPSULE BY MOUTH TWO TIMES A DAY; Therapy: 03Sep2014 to (Evaluate:26Jul2017) Requested for: 27Jan2017; Last Rx:27Jan2017 Ordered 11. AmLODIPine Besylate 2.5 MG Oral Tablet; 4x a week on non-dialysis days; Therapy: (Recorded:09Sep2015) to Recorded 12. Furosemide 40 MG Oral Tablet; take 2 tablets by mouth twice a day; Therapy: 15Aug2012 to (Last Rx:[id number]) Requested for: 20Oct2015; Status: ACTIVE - Renewal Denied Ordered 13. Metoprolol Tartrate 50 MG Oral Tablet; Take 1 tablet by mouth twice a day; Therapy: 28Aug2013 to (Last Rx:[id number]) Requested for: 09Mar2017 Ordered 14. Levothyroxine Sodium 112 MCG Oral Tablet; TAKE ONE TABLET BY MOUTH DAILY; Therapy: 04Dec2013 to (Evaluate:26Jul2017) Requested for: 27Jan2017; Last Rx:27Jan2017 Ordered 15. Viagra 100 MG Oral Tablet; TAKE 1 TABLET DAILY 1 HOUR BEFORE NEEDED; Therapy: 57Teb2838 to (Evaluate:21Nov2016) Requested for: 58Otv8740; Last Rx:[id number] Ordered 16. Nasal CPAP; 13 cm water q.h.s; Therapy: 09Lnz4900 to (Last Rx:[id number]) Ordered 17. Clotrimazole-Betamethasone 1-0.05 % External Cream; APPLY TO LEFT FOREARM ONCE DAILY; Therapy: 17Feb2017 to (Last Rx:17Feb2017) Requested for: 17Feb2017 Ordered 18. Hydrocortisone 2.5 % External Cream; Apply to rash on left arm BID for 3 weeks; Therapy: 57Wkk7465 to (Last Rx:[id number]) Requested for: 59Sim9885 Ordered 19. Ketoconazole 2 % External Cream; Apply to left arm rash BID for 3 weeks; Therapy: 79Fgj6214 to (Last Rx:[id number]) Requested for: 21Egx5934 Ordered 20. Mometasone Furoate 0.1 % External Ointment; APPLY SPARINGLY LEFT FOREARM ONCE DAILY; Therapy: 17Feb2017 to (Last Rx:17Feb2017) Requested for: 17Feb2017 Ordered 21. Renvela 800 MG Oral Tablet; 1600mg po tid; Therapy: (Recorded:28Jan2016) to Recorded 22. Sensipar 30 MG Oral Tablet; TAKE 1 TABLET DAILY DIRECTED; Therapy: 51Qbq8159 to (Evaluate:27Nov2012) Requested for: 21Aug2014 Recorded 23. Lancets; testing 6-8 times daily; Therapy: 16Ner9433 to Recorded Current Orders 1. Bronchoscopy; Requested for:82Axb2599; 2. Wheelchair Repair; Requested for:38Aii7979; 3. Wheelchair Repair; Requested for:34Izy2701; 4. 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 Diabetic Foot Clinic Referral Evaluation and Treatment Evaluation and Treatment - To help us ensure continuity of care for our patients, please fax your findings/recommendations to [phone] For: Diabetic peripheral neuropathy associated with type 1 diabetes mellitus For: PAD (peripheral artery disease) Requested for: [id number] () Care Summary provided. : Yes 6. Lipid Profile - NON Fasting; Requested for:16Apr2017; Department : LAB 7. Free T4; Requested for:16Apr2017; Department : LAB 8. Ultra TSH; Requested for:16Apr2017; Department : LAB 9. Urology Referral Evaluation and Treatment Evaluation and Treatment - To help us ensure continuity of care for our patients, please fax your findings/ recommendations to [phone] For: Male erectile disorder of organic origin Requested for: 29Dwm4441 10:40AM () Care Summary provided. : Yes 10. Speech Therapy Referral Consult Only Evaluation and Treatment - To help us ensure continuity of care for our patients, please fax your findings/recommendations to [phone] Requested for: [id number] () Care Summary provided. : Yes 11. Psychology Referral Consult Only Evaluation and Treatment - To help us ensure continuity of care for our patients, please fax your findings/recommendations to [phone] Pt seeing [facility] regarding depression due to chronic physical/general medical conditions. Requested for: 73Omn2751 () Care Summary provided. : Yes Allergies 1. Penicillins 2. Percocet TABS 3. Vicodin TABS 4. Cipro TABS 5. Clindamycin 6. Codeine Derivatives 7. Levaquin TABS 8. Morphine Derivatives Immunizations Influenza --- Series1: Nov 2010; Series2: Dec 2011; Series3: Dec 2012; Series4: Dec 2013; Series5: Dec 2014; Series6: 20-Dec-2015 PCV --- Series1: 23-Jan-2014 PPSV --- Series1: 2008; Series2: 08-Jul-2016 Tdap --- Series1: 02-Apr-2013 Vitals Vital Signs Recorded: 30Mar2017 01:33PM Blood Pressure: 126 / 76, RUE, Sitting Height: 5 ft 10 in O2 Saturation: 92, RA Respiration: 20 Temperature: 98.1 F Patient Refused (Ht, wt, BP): wheelchair Heart Rate: 88 Results/Data Results 25Mar2017 07:33AM Basic Metabolic Panel SODIUM: 136 mmol/L Reference Range 136-145 mmol/L POTASSIUM: 4.5 mmol/L Reference Range 3.5-5.1 mmol/L CHLORIDE: 98 mmol/L Reference Range 98-107 mmol/L CARBON DIOXIDE: 27 mmol/L Reference Range 21-32 mmol/L ANION GAP: 11.0 mmol/L Reference Range 3-11 mmol/L GLUCOSE: 169 mg/dl Abnormal High Reference Range 70-99 mg/dl BLOOD UREA NITROGEN: 52 mg/dl Abnormal High Reference Range 7-18 mg/dl BUN/CREATININE RATIO: 4.9 Abnormal Low Reference Range 10-20 CREATININE: 10.50 mg/dl Panic H Reference Range 0.60-1.40 mg/dl CALCIUM: 8.4 mg/dl Abnormal Low Reference Range 8.5-10.1 mg/dl Estimated GFR (): 5.9 Estimated GFR (Non-): 5.1 Estimated Creatinine Clearance: 8.6 ml/min Reference Range ml/min Physical Exam Constitutional General appearance: No acute distress, well appearing and well nourished. Eyes Conjunctiva and lids: No swelling, erythema, or discharge. Pupils and irises: Equal, round and reactive to light. Ears, Nose, Mouth, and Throat External inspection of ears and nose: Normal. Otoscopic examination: Tympanic membrance translucent with normal light reflex. Canals patent without erythema. Oropharynx: Normal with no erythema, edema, exudate or lesions. Pulmonary Respiratory effort: No increased work of breathing or signs of respiratory distress. Auscultation of lungs: Abnormal. Decreased breath sounds with bronchiectatic changes most at the bases bilaterally and dullness to percussion at the bases bilaterally. Cardiovascular Palpation of heart: Normal PMI, no thrills. Auscultation of heart: Normal rate and rhythm, normal S1 and S2, without murmurs. Examination of extremities for edema and/or varicosities: Normal. Abdomen Abdomen: Non-tender, no masses. Liver and spleen: No hepatomegaly or splenomegaly. Lymphatic Palpation of lymph nodes in neck: No lymphadenopathy. Musculoskeletal Gait and station: Normal. Digits and nails: Normal without clubbing or cyanosis. Inspection/palpation of joints, bones, and muscles: Normal. Skin Skin and subcutaneous tissue: Normal without rashes or lesions. Neurologic Cranial nerves: Cranial nerves 2-12 intact. Reflexes: 2+ and symmetric. Sensation: No sensory loss. Psychiatric Orientation to person, place and time: Normal. Mood and affect: Normal.
--- NOTE | 2017-04-18 09:05 | Pre Sedation Assessment ---
Pre Sedation Assessment General Date of Sedation: Apr 18, 2017. Review Cardiovascular: + systolic murmur (3/6), + pertinent finding (1+ bilateral lower ext edema) Pre-Sedation Airway Assessment Smoking Status: Former Smoker Hx of Sleep Apnea: Yes Hx of difficult intubation: Yes Short Thick Neck: No Thyro-mental Distance: > 3 Finger Breadths Oral Cavity: WNL Mallampati Classification: Class III ASA Classification: Class III Procedure Planning Contraindications for Sedation: None Current Medications Reviewed: Yes Notes The planned sedation has been discussed with the patient. Informed Consent was obtained. I have identified the patient, determined the appropriateness of sedation and have assessed the patient immediately prior to the procedure. All medicine(s) and interventions are by my order.
[2017-04-18] MEDS ORDERED: BCTOPO OP (09:07)
[2017-04-18] MEDS ORDERED: MOME0.1O3 TOP (09:07)
[2017-04-18] MEDS ORDERED: NURSING VERBAL MED ORDER ONE (09:45)
[2017-04-18] MEDS ORDERED: LACTATED RINGER'S 1000ML 1,000 ML IV SCH (10:00)
--- NOTE | 2017-04-18 11:11 | Bronchoscopy Procedure Note ---
Bronchoscopy Procedure Note Procedure: Bronchoscopy, conscious sedation, bronchial lavage right middle lobe Consent: Obtained through the patient placed into the chart Pre-procedural diagnosis: Tracheal malacia with chronic bronchiectasis Post-procedural diagnosis: EDAC with chronic bronchiectasis Start time: 1045 End time: 1103 Total time: 18minutes Analgesia: 2% liquid lidocaine: Via nebulizer 4% gel lidocaine: Via right naris 2% liquid lidocaine: Via bronchoscopy Sedation: Versed IV: 4mg Fentanyl IV: 75g Procedure: The Olympus video bronchoscope was used for this procedure and passed down through the right naris post tooth type the passed down through the left naris Left naris/posterior naris/posterior oropharynx: Anatomically within normal limits, notable erythema of the posterior basal wall Glottis: Anatomically within normal limits, notable mucous secretions Vocal cords: Proper abduction and abduction, anatomically within normal limits Subglottis/trachea/Mary: Approximately 3 cm below the level of the cricoid cartilage was 95% posterior wall collapse/EDAC, diffuse mucous secretions Right bronchial tree: Right mainstem bronchus: 95% posterior wall collapse/EDAC Right upper lobe: Anatomically within normal limits Bronchus intermedius: 95% posterior wall collapse/EDAC Right middle lobe: Anatomically within normal limits, Right lower lobe: Anatomically within normal limits Findings: Diffuse mucous secretions throughout all subsegment of the right bronchial tree Left bronchial tree: Left mainstem bronchus: 95% posterior wall collapse/EDAC Left upper lobe: Anatomically within normal limits Lingula: Anatomically within normal limits Left lower lobe: Anatomically within normal limits Findings: Diffuse mucous secretions throughout all subsegment with bronchial epithelial irritation Bronchial alveolar lavage: Right middle lobe EBL: None Complications: None Follow-up: ASU
--- NOTE | 2017-04-18 11:14 | Discharge Instructions ---
Discharge Instructions Date of Service Apr 18, 2017. Admission Reason for Admission: Relapsing Polychondritis Discharge Discharge Diagnosis / Problem: diffuse bronchiectasis with excessive dynamic airway collapse Discharge Goals Goal(s): Diagnostic testing Activity Recommendations Activity Limitations: resume your previous activity . Instructions / Follow-Up Instructions / Follow-Up Dr. Shadi Rust at the [facility] pulmonary clinic Current Hospital Diet Patient's current hospital diet: Discharge Diet Recommended Diet: Regular Diet Procedures Procedures Performed: bronchoscopy, conscious sedation bronchial lavage of the right middle lobe Pending Studies Studies pending at discharge: no Medical Emergencies . Who to Call and When: Medical Emergencies: If at any time you feel your situation is an emergency, please call 911 immediately. . Non-Emergent Contact Non-Emergency issues call your: Clinic Office Coordinator . . "Provider Documentation" section prepared by Shadi Ojeda. . VTE Core Measure Inpt VTE Proph given/why not?: Other Anticoagulation (Plavix)
[2017-04-18] MEDS ORDERED: LIDOCAINE 4% INH SOLN 4 ML BTL TOP ONE (11:18)
[2017-04-18] MEDS ORDERED: FENTANYL CITRATE INJ 50 MCG/1 ML 2 ML VIAL IV ONE (11:18)
[2017-04-18] MEDS ORDERED: LIDOCAINE HCL 2% LOCAL 50ML VIAL INSTIL ONE (11:18)
[2017-04-18] MEDS ORDERED: MIDAZOLAM HCL 5 MG/ML 1 ML VIAL IV ONE (11:18)
[2017-04-18] MEDS ORDERED: LIDOCAINE VISCOUS 2% 100ML TOP ONE (11:18)
[2017-04-18] MEDS ORDERED: LEVALBUTEROL/IPRATROPIUM NEB INH SCH (15:00)
[2017-04-18] MEDS ORDERED: IPRATROPIUM BROMIDE NEB SOLN 0.02% 2.5 ML VIAL INH SCH (15:00)
[2017-04-18] MEDS ORDERED: LEVALBUTEROL 1.25MG/0.5ML NEB INH SCH (15:00)
== END 2017-04-18 13:39 | disposition home or self-care (01) ==
LOC: C.ACU 08:15
PROVIDERS: ATTEND Internal Medicine Critical Care Medicine
DX: J47.9 Bronchiectasis, uncomplicated (principal); J98.11 Atelectasis; J44.9 Chronic obstructive pulmonary disease, unspecified; Z86.711 Personal history of pulmonary embolism; I25.10 Atherosclerotic heart disease of native coronary artery without angina pectoris; F32.9 Major depressive disorder, single episode, unspecified; E10.9 Type 1 diabetes mellitus without complications; E78.5 Hyperlipidemia, unspecified; I10 Essential (primary) hypertension; E03.9 Hypothyroidism, unspecified; I73.9 Peripheral vascular disease, unspecified; Z99.2 Dependence on renal dialysis; Z90.89 Acquired absence of other organs; Z98.890 Other specified postprocedural states; Z89.432 Acquired absence of left foot; Z79.4 Long term (current) use of insulin; Z79.899 Other long term (current) drug therapy; G47.33 Obstructive sleep apnea (adult) (pediatric); Z88.0 Allergy status to penicillin; Z88.1 Allergy status to other antibiotic agents; Z88.5 Allergy status to narcotic agent; Z80.42 Family history of malignant neoplasm of prostate

== ENCOUNTER 2017-04-29 18:30 | Inpatient (IN) | payer OTHER, BC ==
[~2017-04-29] VITALS: Ht 177.8 cm; Wt 86.8 kg
[~2017-04-29 18:30] MED LIST changes: +BCTOPO OP; +MOME0.1O3 TOP
[2017-04-29] MEDS ORDERED: ACETAMINOPHEN 325 MG SUPP PR STA (18:35)
[2017-04-29] MEDS ORDERED: SODIUM CHLORIDE 0.9% 1000ML 500 ML IV ONE (18:35)
[2017-04-29] MEDS ORDERED: ALBUT/IPRATROP 3MG/0.5MG NEB 3 ML VIAL INH STA (18:39)
[2017-04-29] MEDS ORDERED: CEFEPIME IV 2,000 MG in DEXTROSE 5% 100ML 100 ML IV ONE (18:45)
--- NOTE | 2017-04-29 18:49 | EMERGENCY ROOM VISIT NOTE ---
History Report prepared by Cece: Enrique Goddard Under the Supervision of: Dr. David Gurrola M.D. First contact with patient: 18:29 Stated Complaint: ALTERED MENTAL STATUS History of Present Illness The patient is a 51 year old male who presents to the Emergency Room with complaints of altered mental status that was discovered this morning by the patient's . This HPI is limited secondary to the patient's current mental state. The patient's history is obtained from EMS and nursing staff who got more information from the patient's . The states that the patient seemed "off" all day. He was extremely somnolent and slept most of the day. She checked on him frequently throughout the day and noticed that his mental status was becoming increasingly altered. Having a history of hypoglycemia in the past , the patient's checked his blood sugars and found them to be normal. However, to be sure, she called EMS to evaluate the patient. His sugars were found to be 170. His initial oxygen saturation was 85% on room air. He does not having at home oxygen but does have a BiPAP/C-PAP available to him. His cough is also chronic and unchanged. His denies any falls. He receives dialysis on the Tuesday, , Tuesday schedule having received it yesterday. His notes that he is on antibiotics currently, but is unsure what they are or why he is taking them. Source of History: spouse/significant other, EMS, nursing staff History Limited By: AMS Onset: this morning Position: other (Global) Symptom Intensity: moderate Quality: other (AMS) Timing: constant Note: He has been very somnolent today. Review of Systems ROS is limited secondary to the patient's mental state. 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 (14) End-stage renal disease on hemodialysis (15) ESRD (end stage renal disease) (16) Gram-positive cocci bacteremia (17) History of diabetic ulcer of foot (18) Hyperparathyroidism due to renal insufficiency (19) Hypertension (20) Hypotension arterial (21) Hypothyroidism (22) infected hematoma R thigh (23) Loss of sensation (24) multipel pna, sepsis (25) multipel pna, sepsis (26) Pneumonia (27) Pulmonary edema (28) Tracheomalacia (29) venous stenosis AVF Family History FH: heart disease Social History Smoking Status: Former Smoker Alcohol Use: none Drug Use: none Marital Status: Housing Status: lives with family Occupation Status: disabled Current/Historical Medications Scheduled Amlodipine Besylate (Norvasc), 2.5 MG PO 4XWK Atorvastatin (Lipitor), 40 MG PO HS Bupropion Hcl (Wellbutrin Sr), 200 MG PO QPM Cinacalcet (Sensipar), 30 MG PO DAILY Clopidogrel Bisulfate (Clopidogrel), 75 MG PO Q2D Fluticasone Furoate-Vilanterol (Breo Ellipta 200-25 Mcg/INH), 1 PUFF INH DAILY Furosemide (Furosemide), 80 MG PO BID Gabapentin (Gabapentin), 100 MG PO BID Insulin Aspart (novoLOG INSULIN PUMP ), 1 EA N/A UD Levothyroxine Sodium (Levothyroxine Sodium), 112 MCG PO DAILY Metoprolol Tartrate (Lopressor) (Lopressor), 50 MG PO BID Sevelamer Carbonate (Renvela), 1,600 MG PO TID Umeclidinium [place] (Incruse Ellipta), 1 PUFF INH DAILY Allergies Coded Allergies: Codeine (Verified Allergy, Intermediate, NAUSEA AND VOMITING, 04/18/17) QUESTIONABLE ALLERGY, STILL QUESTIONABLE BUT D/C SHONDA WITH COD 02/20/17 Tigecycline (Verified Allergy, Mild, ?RASH, 04/18/17) Clindamycin (Verified Allergy, Unknown, Unknown, 04/29/17) Penicillins (Verified Allergy, Unknown, PT HAS HAD MEFOXIN W/OUT A PROBLEM , 04/18/17) HAD MEFOXIN W/O PROBLEM Ciprofloxacin (Verified Adverse Reaction, Intermediate, nausea,vomiting, generalized weakness, 04/18/17) Morphine (Verified Adverse Reaction, Intermediate, TREMBLING,NAUSEA AND VOMITING, 04/18/17) Opioid Analgesics (Verified Adverse Reaction, Intermediate, "ALL RX PAIN MEDS CAUSE SEVERE NAUSEA", 04/18/17) Levofloxacin (Verified Adverse Reaction, Mild, Cipro/Levaquin (IV & po) = N & V, 04/18/17) Oxycodone (Verified Adverse Reaction, Unknown, N/V/D, 04/18/17) SPOKE WITH PATIENT ON 07/29/15, DOES NOT REMEMBER ANY DIFFICULTY BREATHING JUST HIT HIM HARD. Physical Exam Vital Signs Date Time Temp Pulse Resp B/P (MAP) Pulse Ox O2 Delivery O2 Flow Rate FiO2 04/29/17 21:16 89 17 93 Nasal Cannula 3.0 04/29/17 21:11 86 16 93 Nasal Cannula 4.0 04/29/17 21:00 98/55 04/29/17 20:58 37.6 04/29/17 20:53 93/58 04/29/17 20:41 90 17 94 04/29/17 20:36 90 17 93 Nasal Cannula 4.0 04/29/17 20:31 90/54 04/29/17 20:06 86 16 95 04/29/17 20:00 96/62 04/29/17 20:00 93 Nasal Cannula 5.0 04/29/17 19:36 93 20 93 04/29/17 19:31 91 18 101/70 93 Nasal Cannula 5.0 04/29/17 19:13 119/68 04/29/17 19:00 94 18 93 04/29/17 18:55 94 Nasal Cannula 5.0 04/29/17 18:48 38.4 93 18 111/72 94 Nasal Cannula 5.0 04/29/17 18:40 98 04/29/17 18:38 111/72 Physical Exam GENERAL: Patient is in no acute distress. HEENT: No acute trauma, normocephalic atraumatic, mucous membranes dry, no nasal congestion, no scleral icterus. NECK: No stridor, no adenopathy, no meningismus, trachea is midline. LUNGS: Equal breath sounds with scattered wheezing and crackles bilaterally. Wet cough noted. No respiratory distress. HEART: Tachycardic rate with a 3/6 systolic murmur present. Regular rhythm. ABDOMEN: Soft, nontender, bowel sounds positive, no hernias, no peritonitis. EXTREMITIES: Chronic skin changes to the bilateral lower extremities. There is erythema and warmth to the LLE concerning for a possible cellulitis. No drainage present. NEUROLOGIC: Patient is confused. His eyes are closed, and he is refusing to open his eyes. Responds to pain or tactile stimulation, but is somewhat uncooperative. Does move all four extremities. SKIN: No rash, no jaundice, no diaphoresis. Skin is hot to the touch. Medical Decision & Procedures ER Provider Diagnostic Interpretation: Radiology results as stated below per my review and radiologist interpretation: HEAD WITHOUT CONTRAST (CT) CT DOSE: 712.55 mGy.cm HISTORY: Mental status change altered loc TECHNIQUE: Multiaxial CT images of the head were performed without the use of intravenous contrast. A dose lowering technique was utilized adhering to the principles of ALARA. Comparison: 03/16/2017 Findings: The paranasal sinuses and mastoid air cells are clear. Stable pre-existing calcification of the cerebellar hemispheres as well as tentorial regions. Density characteristics otherwise are unremarkable. There is no acute intracranial hemorrhage. There is no midline shift. Impression: Chronic change. No acute process. The above report was generated using voice recognition software. It may contain grammatical, syntax or spelling errors. Electronically signed by: Clive Reilly M.D. 04/29/2017 7:34 PM Dictated Date/Time: 04/29/2017 7:33 PM CHEST ONE VIEW PORTABLE CLINICAL HISTORY: Sepsis dyspnea COMPARISON STUDY: 03/16/2017 FINDINGS: Findings of moderate generalized bibasilar parenchymal infiltrative change. Prominent pulmonary vasculature with moderate cardiomegaly. Chronic atelectasis left base. Pulmonary apices are clear. IMPRESSION: Congestive heart failure versus bibasilar parenchymal infiltrative change. The above report was generated using voice recognition software. It may contain grammatical, syntax or spelling errors. Electronically signed by: Clive Reilly M.D. 04/29/2017 7:26 PM Dictated Date/Time: 04/29/2017 7:25 PM Laboratory Results Test 04/29/17 18:53 04/29/17 18:55 04/29/17 19:05 Magnesium Level 2.2 mg/dl (1.8-2.4) Thyroid Stimulating Hormone (TSH) 1.110 uIu/ml (0.300-4.500) Free Thyroxine 1.06 ng/dl (0.80-1.60) Influenza Type A (RT-PCR) Neg for Influ A (NEG) Influenza Type B (RT-PCR) Neg for Influ B (NEG) Bedside Lactic Acid Venous 1.42 mmol/L (0.90-1.70) Laboratory results reviewed by me. Medications Administered Medications (Trade) Dose Ordered Sig/Etta Route Start Time Stop Time Status Last Admin Dose Admin Sodium Chloride 500 ml @ 999 mls/hr Q31M ONCE IV 04/29/17 18:35 04/29/17 19:05 DC 04/29/17 19:40 999 MLS/HR Cefepime HCl 2000 mg/Dextrose 112.5 ml @ 225 mls/hr NOW ONCE IV 04/29/17 18:45 04/29/17 19:14 DC 04/29/17 19:40 225 MLS/HR Acetaminophen (Tylenol Supp) 975 mg NOW STAT KS 04/29/17 18:35 04/29/17 18:41 DC 04/29/17 19:09 975 MG Albuterol/ Ipratropium (Duoneb) 3 ml NOW STAT INH 04/29/17 18:39 04/29/17 18:41 DC 04/29/17 19:03 3 ML Aztreonam 2000 mg/ Dextrose 110 ml @ 100 mls/hr NOW STAT IV 04/29/17 19:40 04/29/17 20:45 DC 04/29/17 20:03 100 MLS/HR ECG Indication: altered mental status Rate (beats per minute): 90 Rhythm: normal sinus Findings: other (Nonspecific ST changes noted, no PVC or PAC) Change: Patient's electrocardiogram interpreted by me. ED Course 1828: The patient was evaluated in room A1. A complete history and physical exam was performed. 183: Ordered Acetaminophen 975 mg KS, Sodium Chloride 500 ml @ 999 mls/hr IV 183: Ordered DuoNeb 3 ml INH 1845: Ordered Cefepime HCl 2000 mg/Dextrose 112.5 ml @ 225 mls/hr IV 0: Ordered Aztreonam 2000 mg/Dextrose 110 ml @ 100 mls/hr IV 1943: Upon reexamination the patient is resting. I spoke with Dr. Ward of the [facility]. We discussed the patient's results and findings. The patient will be evaluated by him for further management. Medical Decision Differential diagnosis includes but is not limited to sepsis, bacteremia, pneumonia, cellulitis, intracranial bleeding, stroke, electrolyte imbalance, anemia, and influenza. There is a significant leukocytosis at 33,000, this is of course consistent with infection. No concerning anemia. Renal panel testing shows a high creatinine consistent with his dialysis need. No signs of acidosis. No evidence for hepatitis. The patient appears to be in a euthyroid state. There is no concerning coagulopathy. EKG shows a normal sinus rhythm, no acute ischemic change. Cardiac enzyme testing times one does show a mild troponin elevation, this could of course be consistent with cardiac injury or strain. Chest x-ray shows what seems to be a left lower lung pneumonia. No pneumothorax. Brain CT shows no acute bleed or mass effect. Influenza testing is negative. Blood cultures are pending. The patient was maintained on oxygen supplementation. He was given a DuoNeb. He received IV cefepime and IV aztreonam as antibiotic coverage. He was given a 500 mL saline bolus. He received rectal Tylenol for his fever. The patient's mental status improved somewhat but he was still confused. He was not able to follow a regular conversation and did not answer questions appropriately. There were no focal neurologic deficits noted. The patient is septic from pneumonia and possibly a left lower leg cellulitis. He requires time in the hospital, likely in the intensive care unit. His condition is serious. The patient has made some improvement here in the ED. His blood pressure has remained adequate. I did speak with the hospitalist and manager of case management. Admission/observation is warranted. Medication Reconcilliation Current Medication List: was personally reviewed by me Blood Pressure Screening Patient's blood pressure: Normal blood pressure Blood pressure disposition: Did not require urgent referral Consults Time Called: 1939 Consulting Physician: Dr. Ed Huynh [facility] Returned Call: 1943 Discussed the patient's case. The patient will be evaluated for further management. Impression Primary Impression: Sepsis Additional Impressions: Change in mental status Leukocytosis Critical Care I have personally spent greater than 35 minutes of critical care time in the direct management of this patient. This includes bedside care, interpretation of diagnostic studies, and testing, discussion with consultants, patient, and family members, and other required patient management activities. This 35 minutes is in excess of all separately billable procedures. Scribe Attestation The scribe's documentation has been prepared under my direction and personally reviewed by me in its entirety. I confirm that the note above accurately reflects all work, treatment, procedures, and medical decision making performed by me. Departure Information Dispostion Being Evaluated By Hospitalist Referrals Devendra Bland M.D. (PCP) Problem Qualifiers Primary Impression: Sepsis Sepsis type: sepsis due to unspecified organism Qualified Codes: A41.9 - Sepsis, unspecified organism Additional Impressions: Change in mental status Altered mental status type: unspecified Qualified Codes: R41.82 - Altered mental status, unspecified Leukocytosis Leukocytosis type: unspecified Qualified Codes: D72.829 - Elevated white blood cell count, unspecified
[2017-04-29 19:24] LABS: HEMATOCRIT 41.1 % (42-52); HEMOGLOBIN 13.6 g/dL (14.0-18.0); MEAN CELL VOLUME 105.4 fL (80-100); MEAN CORPUSCULAR HEMOGLOBIN 34.9 pg (25-34); MEAN CORPUSCULAR HGB CONC 33.1 g/dl (32-36); MEAN PLATELET VOLUME 9.7 fL (7.4-10.4); PLATELET COUNT 239 K/uL (130-400); RED CELL DISTRIBUTION WIDTH CV 14.6 % (11.5-14.5); WHITE BLOOD COUNT 33.14 K/uL (4.8-10.8)
[2017-04-29 19:25] LABS: PTT PATIENT 31.9 SECONDS (21.0-31.0)
--- NOTE | 2017-04-29 19:28 | DIAGNOSTIC IMAGING REPORT ---
CHEST ONE VIEW PORTABLE CLINICAL HISTORY: Sepsis dyspnea COMPARISON STUDY: 03/16/2017 FINDINGS: Findings of moderate generalized bibasilar parenchymal infiltrative change. Prominent pulmonary vasculature with moderate cardiomegaly. Chronic atelectasis left base. Pulmonary apices are clear. IMPRESSION: Congestive heart failure versus bibasilar parenchymal infiltrative change. The above report was generated using voice recognition software. It may contain grammatical, syntax or spelling errors. Electronically signed by: Clive Reilly M.D. 04/29/2017 7:26 PM Dictated Date/Time: 04/29/2017 7:25 PM
--- NOTE | 2017-04-29 19:36 | DIAGNOSTIC IMAGING REPORT ---
HEAD WITHOUT CONTRAST (CT) CT DOSE: 712.55 mGy.cm HISTORY: Mental status change altered loc TECHNIQUE: Multiaxial CT images of the head were performed without the use of intravenous contrast. A dose lowering technique was utilized adhering to the principles of ALARA. Comparison: 03/16/2017 Findings: The paranasal sinuses and mastoid air cells are clear. Stable pre-existing calcification of the cerebellar hemispheres as well as tentorial regions. Density characteristics otherwise are unremarkable. There is no acute intracranial hemorrhage. There is no midline shift. Impression: Chronic change. No acute process. The above report was generated using voice recognition software. It may contain grammatical, syntax or spelling errors. Electronically signed by: Clive Reilly M.D. 04/29/2017 7:34 PM Dictated Date/Time: 04/29/2017 7:33 PM
[2017-04-29] MEDS ORDERED: AZTREONAM IV 2,000 MG in DEXTROSE 5% 100ML 100 ML IV STA (19:40)
[2017-04-29 19:54] LABS: ALKALINE PHOSPHATASE 162 U/L (45-117); ALT/SGPT 27 U/L (12-78); AST/SGOT 22 U/L (15-37); BLOOD UREA NITROGEN 24 mg/dl (7-18); CALCIUM 8.6 mg/dl (8.5-10.1); CARBON DIOXIDE 27 mmol/L (21-32); CREATININE 7.32 mg/dl (0.60-1.40); GLUCOSE 151 mg/dl (70-99); POTASSIUM 4.1 mmol/L (3.5-5.1); SODIUM 131 mmol/L (136-145); TOTAL PROTEIN 7.5 gm/dl (6.4-8.2)
[2017-04-29 19:57] LABS: BASO % 0.1 %; BASO ABS # 0.04 K/uL (0-0.2); EOS ABS # 0.01 K/uL (0-0.5); IG# 0.17 K/uL (0.00-0.02); LYMPH ABS # 0.67 K/uL (1.2-3.4); MONO % 5.6 %; MONO ABS # 1.84 K/uL (0.11-0.59); NEUT % 91.8 %; NEUT ABS # 30.41 K/uL (1.4-6.5)
[2017-04-29] MEDS ORDERED: WLLSR/200 PO (20:17)
[2017-04-29 20:22] LABS: INFLUENZA A PCR Neg for Influ A (NEG); INFLUENZA B PCR Neg for Influ B (NEG)
[2017-04-29] MEDS ORDERED: CEFEPIME IV 1,000 MG in DEXTROSE 5% 100ML 100 ML IV ONE (21:24)
[2017-04-29] MEDS ORDERED: VANCOMYCIN INJ 1,000 MG in SODIUM CHLORIDE 0.9% 250ML 250 ML IV STA (21:24)
[2017-04-29] MEDS ORDERED: VANCOMYCIN CONSULT ACTIVE PRN (21:30)
[2017-04-29] MEDS ORDERED: ONDANSETRON INJ 2 MG/ML 2 ML VIAL IV PRN (21:30)
[2017-04-29] MEDS ORDERED: POLYETHYLENE (MIRALAX) 17 GM PACK PO PRN (21:30)
[2017-04-29] MEDS ORDERED: MAGNESIUM HYDROXIDE SUSP 30 ML UDC PO PRN (21:30)
[2017-04-29] MEDS ORDERED: ALUMINUM/MAGNESIUM/SIMETH (MAALOX MAX) 30 ML UDC PO PRN (21:30)
--- NOTE | 2017-04-29 21:40 | History and Physical ---
History & Physical Date & Time of Service: Apr 29, 2017 at 21:37 Chief Complaint: Altered Mental Status Primary Care Physician: No Doctor, Assigned History of Present Illness Source: patient, hospital records The patient is a 51 year old male who presented to the ED with altered mental status that was found by the patients this morning. This history is limited due to the patients currently mental status. The history is obtained through EMS, nursing staff and the emergency physician. According to records the patient had been altered all day. He was very sleepy. His checked on him throughout the day and noticed that the patient was becoming increasing altered. She checked his blood sugars which were normal as the patient usually controls his blood sugars very tightly. He was found to have a oxygen of 85% by EMS. His cough is chronic and unchanged. His says the patient has not had any falls. He gets dialysis on Tuesday, and Saturdays. His notes that he has been on Abx but is unsure why. Of note the patient had a bronchoscopy with Dr. Ojeda last week and was found to have extensive dynamic airway collapse with bronchiectasis. He also has a history of COPD for which he is on inhalers. He is not on home oxygen but does have a CPAP and BiPaP at home. 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 (11) Hyperparathyroidism due to renal insufficiency Status: Chronic (12) Hypothyroidism Status: Chronic (13) Pneumonia Status: Chronic Family History FH: heart disease Social History Smoking Status: Unknown if Ever Smoked Smokeless Tobacco Use: No Alcohol Use: none Drug Use: none Marital Status: Housing status: lives with family Occupational Status: disabled Immunizations History of Influenza Vaccine: Yes Influenza Vaccine Date: Dec 19, 2014 History of Tetanus Vaccine?: Yes Tetanus Immunization Date: Apr 02, 2013 History of Pneumococcal: 2008 and 2013 Pneumococcal Date: Mar 21, 2008 History of Hepatitis B Vaccine: Unknown Hepatitis Immunization Date: Feb 15, 2007 Multi-Drug Resistant Organisms History of MDRO: No Allergies Coded Allergies: Codeine (Verified Allergy, Intermediate, NAUSEA AND VOMITING, 04/18/17) QUESTIONABLE ALLERGY, STILL QUESTIONABLE BUT MD Villafuerte/David SHONDA WITH COD 02/20/17 Tigecycline (Verified Allergy, Mild, ?RASH, 04/18/17) Clindamycin (Verified Allergy, Unknown, Unknown, 04/29/17) Penicillins (Verified Allergy, Unknown, PT HAS HAD MEFOXIN W/OUT A PROBLEM , 04/18/17) HAD MEFOXIN W/O PROBLEM Ciprofloxacin (Verified Adverse Reaction, Intermediate, nausea,vomiting, generalized weakness, 04/18/17) Morphine (Verified Adverse Reaction, Intermediate, TREMBLING,NAUSEA AND VOMITING, 04/18/17) Opioid Analgesics (Verified Adverse Reaction, Intermediate, "ALL RX PAIN MEDS CAUSE SEVERE NAUSEA", 04/18/17) Levofloxacin (Verified Adverse Reaction, Mild, Cipro/Levaquin (IV & po) = N & V, 04/18/17) Oxycodone (Verified Adverse Reaction, Unknown, N/V/D, 04/18/17) SPOKE WITH PATIENT ON 07/29/15, DOES NOT REMEMBER ANY DIFFICULTY BREATHING JUST HIT HIM HARD. Home Medications Scheduled Amlodipine Besylate (Norvasc), 2.5 MG PO 4XWK Atorvastatin (Lipitor), 40 MG PO HS Bupropion Hcl (Wellbutrin Sr), 200 MG PO QPM Cinacalcet (Sensipar), 30 MG PO DAILY Clopidogrel Bisulfate (Clopidogrel), 75 MG PO Q2D Fluticasone Furoate-Vilanterol (Breo Ellipta 200-25 Mcg/INH), 1 PUFF INH DAILY Furosemide (Furosemide), 80 MG PO BID Gabapentin (Gabapentin), 100 MG PO BID Insulin Aspart (novoLOG INSULIN PUMP ), 1 EA N/A UD Levothyroxine Sodium (Levothyroxine Sodium), 112 MCG PO DAILY Metoprolol Tartrate (Lopressor) (Lopressor), 50 MG PO BID Sevelamer Carbonate (Renvela), 1,600 MG PO TID Umeclidinium [place] (Incruse Ellipta), 1 PUFF INH DAILY Review of Systems Unable to obtain ROS due to mental status Physical Exam Vital Signs Date Time Temp Pulse Resp B/P (MAP) Pulse Ox O2 Delivery O2 Flow Rate FiO2 04/29/17 20:58 37.6 04/29/17 20:36 90 17 93 Nasal Cannula 4.0 04/29/17 20:31 90/54 04/29/17 20:06 86 16 95 04/29/17 20:00 96/62 04/29/17 20:00 93 Nasal Cannula 5.0 04/29/17 19:36 93 20 93 04/29/17 19:31 91 18 101/70 93 Nasal Cannula 5.0 04/29/17 19:13 119/68 04/29/17 19:00 94 18 93 04/29/17 18:55 94 Nasal Cannula 5.0 04/29/17 18:48 38.4 93 18 111/72 94 Nasal Cannula 5.0 04/29/17 18:40 98 04/29/17 18:38 111/72 General Appearance: + pertinent finding (patient occasionally opens his eyes when spoken to, but says no to all questions) Head: normocephalic, atraumatic Eyes: PERRL ENT: + pertinent finding (poor) Neck: supple, thyroid normal, no JVD, trachea midline Respiratory/Chest: no respiratory distress, no accessory muscle use, + rhonchi (bilaterally), + wheezing Cardiovascular: regular rate, rhythm, no edema, + systolic murmur (3/6 with radiation to carotids) Abdomen/GI: normal bowel sounds, non tender, soft Extremities/Musculoskelatal: no pedal edema, + pertinent finding (chronic venous changes bilaterally, R foot missing 1st toe, L foot missing all 5 toes, weak peripheral pulses bilaterally) Neurologic/Psych: + disoriented Diagnostics Laboratory Results Results Past 24 Hours Test 04/29/17 18:53 04/29/17 18:55 04/29/17 19:05 04/29/17 20:16 Range/Units White Blood Count 33.14 4.8-10.8 K/uL Red Blood Count 3.90 4.7-6.1 M/uL Hemoglobin 13.6 14.0-18.0 g/dL Hematocrit 41.1 42-52 % Mean Corpuscular Volume 105.4 80-100 fL Mean Corpuscular Hemoglobin 34.9 25-34 pg Mean Corpuscular Hemoglobin Concent 33.1 32-36 g/dl Platelet Count 239 130-400 K/uL Mean Platelet Volume 9.7 7.4-10.4 fL Neutrophils (%) (Auto) 91.8 % Lymphocytes (%) (Auto) 2.0 % Monocytes (%) (Auto) 5.6 % Eosinophils (%) (Auto) 0.0 % Basophils (%) (Auto) 0.1 % Neutrophils # (Auto) 30.41 1.4-6.5 K/uL Lymphocytes # (Auto) 0.67 1.2-3.4 K/uL Monocytes # (Auto) 1.84 0.11-0.59 K/uL Eosinophils # (Auto) 0.01 0-0.5 K/uL Basophils # (Auto) 0.04 0-0.2 K/uL RDW Standard Deviation 56.0 36.4-46.3 fL RDW Coefficient of Variation 14.6 11.5-14.5 % Immature Granulocyte % (Auto) 0.5 % Immature Granulocyte # (Auto) 0.17 0.00-0.02 K/uL Prothrombin Time 11.0 9.0-12.0 SECONDS Prothromb Time International Ratio 1.0 0.9-1.1 Activated Partial Thromboplast Time 31.9 21.0-31.0 SECONDS Partial Thromboplastin Ratio 1.2 Sodium Level 131 136-145 mmol/L Potassium Level 4.1 3.5-5.1 mmol/L Chloride Level 93 98-107 mmol/L Carbon Dioxide Level 27 21-32 mmol/L Anion Gap 11.0 3-11 mmol/L Blood Urea Nitrogen 24 7-18 mg/dl Creatinine 7.32 0.60-1.40 mg/dl Estimated GFR () 9.1 Estimated GFR (Non- 7.8 BUN/Creatinine Ratio 3.3 10-20 Random Glucose 151 70-99 mg/dl Calcium Level 8.6 8.5-10.1 mg/dl Magnesium Level 2.2 1.8-2.4 mg/dl Total Bilirubin 0.8 0.2-1 mg/dl Aspartate Amino Transf (AST/SGOT) 22 15-37 U/L Alanine Aminotransferase (ALT/SGPT) 27 12-78 U/L Alkaline Phosphatase 162 45-117 U/L Troponin I 0.051 0-0.045 ng/ml Total Protein 7.5 6.4-8.2 gm/dl Albumin 3.0 3.4-5.0 gm/dl Globulin 4.5 2.5-4.0 gm/dl Albumin/Globulin Ratio 0.7 0.9-2 Thyroid Stimulating Hormone (TSH) 1.110 0.300-4.500 uIu/ml Free Thyroxine 1.06 0.80-1.60 ng/dl Influenza Type A (RT-PCR) Neg for Influ A NEG Influenza Type B (RT-PCR) Neg for Influ B NEG Bedside Lactic Acid Venous 1.42 0.90-1.70 mmol/L Test 04/29/17 21:24 Range/Units Microbiology Results 04/29/17 Blood Culture, Received Pending 04/29/17 Blood Culture, Received Pending Diagnostic Radiology FINDINGS: Findings of moderate generalized bibasilar parenchymal infiltrative change. Prominent pulmonary vasculature with moderate cardiomegaly. Chronic atelectasis left base. Pulmonary apices are clear. EKG EKG non specific ST changes, no PVC or PAC Impression Assessment and Plan 51 year old male here with a PMH of diabetes, COPD, ESRD on dialysis, hx of PE, Bipolar and hypothyroidism. Presents from home via EMS due to 1 day hx of altered mental status. In the ED he was found to have a temp of 38.4 and wcc of 33. His CXR showed bibasilar infiltrates. Sepsis secondary to HAP - IV vanc and cefepime started - lactate 1.42, repeat now - 500ml given secondary to concern for fluid overload secondary to ESRD - blood cultures x2 taken - duonebs ordered - continue home inhalers - O2 via NC as needed, maintain oxygen between 88-92% - monitor fever curve and trend cbc ESRD - Dialysis Tuesday, and Tuesday - nephrology consulted - creatinine 7.32 in the ED - trend renal function - monitor I/O's - continue renvela and sensipar Elevated trop/CAD/HTN - trop of .051 - trend trop q8 - EKG with nonspecific ST changes - last echo in August 55-60% with moderate aortic stenosis - continue metoprolol, statin and amlodipine - hold lasix for now, reassess fluid status in the AM - unable to find hx of CAD, dayteam to investigate further, on plavix? Chronic diastolic CHF - hold furosemide - last echo August 2016 showed EF 55-60 with moderate aortic stenosis - monitor I/O's DM - on insulin pump at home - insulin sliding scale ordered - hold insulin pump - check HbA1c Hx of PE leading to cardiac arrest - currently not on anticoagulation - dayteam to investigate this further Hypothyroidism - TSH and free t4 normal - continue home meds Peripheral neuropathy - continue gabapentin DVT prophylaxis - heparin Subq FULL CODE - unable to get a hold of or find living well therefore going according to last discharge summary in february Attending addendum: I have physically seen this patient, have supervised the medical residents activities, and agree with the H&P unless as otherwise noted. Assessment and Plan: Pneumonia/sepsis-- Vancomycin IV per pharmacokinetic monitoring Cefepime 1 g IV every 12 hours Duonebs every 4 hours while awake and every 2 hours when necessary. Guaifenesin extended release 600 mg by mouth twice a day Nasal cannula oxygen titrate to keep pulse ox greater than or equal to 92% Sputum Gram stain and culture. End-stage renal disease on HD-- Continue Renvela and Sensipar Consult nephrology. CAD/hypertension/elevated troponin/CHF/moderate aortic stenosis-- The patient will be admitted to telemetry for serial cardiac enzymes, serial EKG's, cardiac rhythm monitoring and a 2-D echocardiogram with Dopplers. Hold Lasix for now Level of Care Telemetry Advanced Directives Existing Advance Directive: No Existing Living Will: No Existing Power of [employer]: No Resuscitation Status FULL RESUSCITATION VTE Prophylaxis VTE Risk Assessment Done? Y/N: Yes Risk Level: High Given or contraindicated: Unfractionated heparin SQ Social Service Consult None Apply
[2017-04-29] MEDS ORDERED: VANCOMYCIN 1GM/270ML NSS ONE (21:42)
[2017-04-29] MEDS ORDERED: GLUCAGON FOR INJ 1 MG VIAL SQ PRN (22:00)
[2017-04-29] MEDS ORDERED: DEXTROSE 50% 50 ML SYR IV PRN (22:00)
[2017-04-29] MEDS ORDERED: PATIENT'S HEIGHT AND/OR WEIGHT NEEDED SCH (22:00)
[2017-04-29] MEDS ORDERED: GLUCOSE 40% GEL 15 GM TUBE PO PRN (22:00)
[2017-04-29] MEDS ORDERED: GLUCOSE 10 TABS/TUBE PO PRN (22:00)
[2017-04-29 22:11] LABS: HEMATOCRIT 40.3 % (42-52); HEMOGLOBIN 13.4 g/dL (14.0-18.0); MEAN CELL VOLUME 105.8 fL (80-100); MEAN CORPUSCULAR HEMOGLOBIN 35.2 pg (25-34); MEAN CORPUSCULAR HGB CONC 33.3 g/dl (32-36); MEAN PLATELET VOLUME 10.1 fL (7.4-10.4); PLATELET COUNT 230 K/uL (130-400); RED CELL DISTRIBUTION WIDTH CV 14.4 % (11.5-14.5); RED CELL DISTRIBUTION WIDTH SD 55.7 fL (36.4-46.3); WHITE BLOOD COUNT 28.32 K/uL (4.8-10.8)
[2017-04-29 22:24] VITALS: BP 104/71; PULSE 99; TEMP 37.2; O2SAT 93
[2017-04-29 22:37] LABS: ALBUMIN 2.9 gm/dl (3.4-5.0); ALKALINE PHOSPHATASE 152 U/L (45-117); ALT/SGPT 22 U/L (12-78); AST/SGOT 16 U/L (15-37); BLOOD UREA NITROGEN 28 mg/dl (7-18); CALCIUM 8.5 mg/dl (8.5-10.1); CARBON DIOXIDE 26 mmol/L (21-32); CREATININE 7.54 mg/dl (0.60-1.40); GLUCOSE 241 mg/dl (70-99); POTASSIUM 4.5 mmol/L (3.5-5.1); SODIUM 132 mmol/L (136-145)
[2017-04-29 22:38] LABS: BASO % 0.1 %; BASO ABS # 0.04 K/uL (0-0.2); IG# 0.12 K/uL (0.00-0.02); LYMPH % 3.4 %; LYMPH ABS # 0.96 K/uL (1.2-3.4); NEUT % 90.1 %
[2017-04-29 22:44] VITALS: BP 104/71; PULSE 95; TEMP 37.2; O2SAT 95; Ht 177.8 cm; Wt 86.8 kg
[2017-04-29 23:01] VITALS: BP 83/56; PULSE 89; O2SAT 94
[2017-04-29] MEDS ORDERED: CEFEPIME CONSULT ACTIVE PRN (23:30)
[2017-04-30] VITALS (42 sets, daily range): BP systolic 77–137; BP diastolic 50–82; PULSE 80–100; TEMP 36.2–37.2; O2SAT 79–99
[2017-04-30] MEDS ORDERED: VANCOMYCIN INJ 500 MG in SODIUM CHLORIDE 0.9% 250ML 250 ML IV SCH ×2
[2017-04-30] MEDS: LEVOTHYROXINE 112 MCG TAB PO SCH (06:00)
[2017-04-30] MEDS ORDERED: INSULIN ASPART 100 UNITS/ML 3 ML PEN SC SCH ×2 (06:45→12:00)
[2017-04-30 07:00] LABS: HEMOGLOBIN A1C 6.1 % (4.5-5.6)
[2017-04-30] MEDS: ALBUT/IPRATROP 3MG/0.5MG NEB 3 ML VIAL INH SCH ×4 (07:23→18:14)
[2017-04-30] MEDS ORDERED: [UNRECOGNIZED DRUG - REMARK] PRN (08:00)
[2017-04-30] MEDS: INCRUSE ELLIPTA~ORDER AWAITING ACTION SCH ×4 (08:00→23:30)
[2017-04-30] MEDS: SENSIPAR~ORDER AWAITING ACTION SCH ×4 (08:00→23:30)
[2017-04-30] MEDS: GABAPENTIN 100 MG CAP PO SCH (09:00)
[2017-04-30] MEDS: CLOPIDOGREL BISULFATE 75 MG TAB PO SCH (09:00)
[2017-04-30] MEDS ORDERED: AMLODIPINE BESYLATE 5 MG TAB PO SCH (09:00)
[2017-04-30] MEDS ORDERED: METOPROLOL TARTRATE 50 MG TAB PO SCH (09:00)
[2017-04-30] MEDS ORDERED: IMIPENEM/CILASTATIN CONSULT ACTIVE PRN (09:00)
[2017-04-30] MEDS: SEVELAMER HYDROCH 800 MG TAB PO SCH (09:00)
[2017-04-30] MEDS ORDERED: HEPARIN SOD 5000 UNIT/0.5 ML CARP SQ SCH (09:00)
[2017-04-30] MEDS ORDERED: CEFEPIME IV 1,000 MG in DEXTROSE 5% 100ML 100 ML IV SCH (09:00)
[2017-04-30] MEDS: FUROSEMIDE 80 MG TAB PO SCH (09:00)
[2017-04-30] MEDS ORDERED: METHYLPREDNISOLONE IV 60 MG in SYRINGE 0 ML IV ONE (09:30)
[2017-04-30] MEDS: IMIPENEM-CILASTATIN 200 MG in DEXTROSE 5% 100ML 100 ML IV SCH ×3 (09:47→20:15)
--- NOTE | 2017-04-30 09:54 | DIAGNOSTIC IMAGING REPORT ---
CHEST ONE VIEW PORTABLE CLINICAL HISTORY: 51 years-old Male presenting with Dyspnea, wheezing. TECHNIQUE: Portable upright AP view of the chest was obtained. COMPARISON: 04/29/2017. FINDINGS: Atherosclerosis of aortic arch. Cardiac silhouette mild enlarged. Pulmonary vascular prominence, unchanged. Persistent left retrocardiac hazy opacities. Decreased right lower opacities. No large pleural effusion or pneumothorax. Multiple overlying external leads to grade image quality. Dextroscoliotic curvature of the lower thoracic spine. IMPRESSION: 1. Mild cardiomegaly with volume overload. 2. Stable to slight decrease in bibasilar opacities more dense on the left. This could represent atelectasis, aspiration, or infection. A component of ulnar edema may also be present. Electronically signed by: Xavier Green M.D. 04/30/2017 9:53 AM Dictated Date/Time: 04/30/2017 9:51 AM
[2017-04-30 09:59] LABS: HEMATOCRIT 39.7 % (42-52); MEAN CELL VOLUME 107.6 fL (80-100); MEAN CORPUSCULAR HEMOGLOBIN 35.2 pg (25-34); MEAN CORPUSCULAR HGB CONC 32.7 g/dl (32-36); MEAN PLATELET VOLUME 10.4 fL (7.4-10.4); PLATELET COUNT 224 K/uL (130-400); RED CELL DISTRIBUTION WIDTH CV 14.5 % (11.5-14.5); RED CELL DISTRIBUTION WIDTH SD 57.3 fL (36.4-46.3); WHITE BLOOD COUNT 23.81 K/uL (4.8-10.8)
[2017-04-30 10:07] LABS: INR 1.3 (0.9-1.1); PTT PATIENT 33.4 SECONDS (21.0-31.0)
[2017-04-30 10:22] LABS: BASO % 0.1 %; BASO ABS # 0.03 K/uL (0-0.2); IG# 0.07 K/uL (0.00-0.02); LYMPH % 1.1 %; LYMPH ABS # 0.26 K/uL (1.2-3.4); MONO % 2.6 %; MONO ABS # 0.61 K/uL (0.11-0.59); NEUT % 95.9 %; NEUT ABS # 22.84 K/uL (1.4-6.5)
[2017-04-30] MEDS ORDERED: HEPARIN SOD (PORCINE) 1000 UNIT/ML 10 ML VIAL IV SCH ×2 (10:30)
[2017-04-30 10:32] LABS: ALBUMIN 2.9 gm/dl (3.4-5.0); CALCIUM 8.8 mg/dl (8.5-10.1); CREATININE 8.75 mg/dl (0.60-1.40); POTASSIUM 4.8 mmol/L (3.5-5.1)
[2017-04-30] MEDS ORDERED: INSULIN IV INFUSION PROTOCOL STA ×2 (10:36→10:37)
[2017-04-30] MEDS ORDERED: SODIUM CHLORIDE 0.9% 1000ML 1,000 ML IV SCH (10:37)
[2017-04-30] MEDS ORDERED: PHARMACY GLYCEMIC MGMT CONSULT PRN (10:45)
[2017-04-30] MEDS ORDERED: SEVERE STRESS LEVEL ONE (10:45)
[2017-04-30] MEDS ORDERED: DKA GOAL RANGE 150-250 mg/dl 1 EA ONE (10:45)
[2017-04-30] MEDS ORDERED: DC ALL PREVIOUSLY ORDERED DIABETES MEDS ONE (10:45)
[2017-04-30] MEDS ORDERED: NSS + 20MEQ KCL 1000ML 1,000 ML IV SCH (11:00)
[2017-04-30] MEDS ORDERED: INSULIN HUMAN REGULAR IV BOLUS 2 UNIT in SYRINGE 0 ML IV SCH (11:00)
[2017-04-30] MEDS: LINEZOLID / D5W 600 MG in PREMIXED IN D5W 300 ML IV SCH ×2 (11:05→21:14)
[2017-04-30] MEDS: INSULIN REGULAR 250 UNITS in SODIUM CHLORIDE 0.9% 250ML 250 ML IV SCH (11:20)
[2017-04-30] MEDS ORDERED: PERFLUTREN LIPID MICROSPHERE (DEFINITY) IV ONE (11:23)
--- NOTE | 2017-04-30 11:52 | Nephrology Consultation ---
Nephrology Consultation Date & Providers Date of Consultation: Apr 30, 2017. Primary Care Provider: No Doctor, Assigned Referring Provider: Reason for Consultation ESRD History of Present Illness Mr. Clark is a 51 year old white male who is seen at the request of Dr. Sorensen to provide inpatient hemodialysis and assist with medical management. Medical records in the hospital EMR were reviewed during the patient's evaluation today and are summarized as follows: Mr. Clark has a complex medical history. He has had IDDM since childhood. He has developed diabetic nephropathy and progressed to ESRD 12/25. He now dialyzes TTS at the [facility] HD unit. His medical history is significant for bipolar disorder, hypertension, anemia, secondary hyperparathyroidism, hypercholesterolemia, COPD, peripheral vascular disease w/ diabetic foot ulcers, and severe tracheal malacia with chronic bronchiectasis. Mr. Clark was found to be poorly responsive by his yesterday evening. Blood sugar was > 100. He was admitted to the hospital for presumed sepsis syndrome possibly from a pulmonary source. At the time of my evaluation Mr. Clark was poorly responsive. SBP was > 100 mm HG, BSG was > 300. Head CT was negative for CVA. CXR is suggestive of mild CHF and possible bibasilar infiltrates. Patient is on broad spectrum antibiotics. Blood cultures are pending. Critical care team has been consulted for possible transfer to the ICU. Past Medical/Surgical History Medical: # ESRD on HD ([facility] TTS 4 hrs 2K 2Ca F-180NR Qb 450 cc/min EDW 83kg) # IDDM # HTN # PVD # Anemia # sHPT # Hypothyroidism # Hypercholesterolemia # Bipolar disorder # COPD (Quit smoking ~ 2013) # Severe tracheal malacia with chronic bronchiectasis - on nocturnal CPAP therapy Surgical: # AVF creation Allergies Coded Allergies: Codeine (Verified Allergy, Intermediate, NAUSEA AND VOMITING, 04/18/17) QUESTIONABLE ALLERGY, STILL QUESTIONABLE BUT MD Villafuerte/David SHONDA WITH COD 02/20/17 Tigecycline (Verified Allergy, Mild, ?RASH, 04/18/17) Clindamycin (Verified Allergy, Unknown, Unknown, 04/29/17) Penicillins (Verified Allergy, Unknown, PT HAS HAD MEFOXIN W/OUT A PROBLEM , 04/18/17) HAD MEFOXIN W/O PROBLEM Ciprofloxacin (Verified Adverse Reaction, Intermediate, nausea,vomiting, generalized weakness, 04/18/17) Morphine (Verified Adverse Reaction, Intermediate, TREMBLING,NAUSEA AND VOMITING, 04/18/17) Opioid Analgesics (Verified Adverse Reaction, Intermediate, "ALL RX PAIN MEDS CAUSE SEVERE NAUSEA", 04/18/17) Levofloxacin (Verified Adverse Reaction, Mild, Cipro/Levaquin (IV & po) = N & V, 04/18/17) Oxycodone (Verified Adverse Reaction, Unknown, N/V/D, 04/18/17) SPOKE WITH PATIENT ON 07/29/15, DOES NOT REMEMBER ANY DIFFICULTY BREATHING JUST HIT HIM HARD. Inpatient Medications Current Inpatient Medications Medications (Trade) Dose Ordered Sig/Etta Route Start Time Stop Time Status Last Admin Dose Admin Al Hydrox/Mg Hydrox/Simethicone (Maalox Max Susp) 15 ml Q4H PRN PO 04/29/17 21:30 05/29/17 21:29 Magnesium Hydroxide (Milk Of Magnesia Susp) 30 ml Q12H PRN PO 04/29/17 21:30 05/29/17 21:29 Ondansetron HCl (Zofran Inj) 4 mg Q6H PRN IV 04/29/17 21:30 05/29/17 21:29 Polyethylene (Miralax Powder Packet) 17 gm DAILY PRN PO 04/29/17 21:30 05/29/17 21:29 Heparin Sodium (Porcine) (Heparin Sq 5000 Unit/0.5ml) 5,000 unit Q12 SQ 04/30/17 09:00 05/30/17 08:59 04/30/17 08:25 5,000 UNIT Miscellaneous Information (Consult) 1 ea UD PRN N/A 04/29/17 21:30 05/29/17 21:29 Albuterol/ Ipratropium (Duoneb) 3 ml QIDR INH 04/30/17 08:00 05/30/17 07:59 04/30/17 11:18 3 ML Glucose (Glucose 40% Gel) 15-30 GRAMS 15 GRAMS... UD PRN PO 04/29/17 22:00 05/29/17 21:59 Glucose (Glucose Chew Tab) 4-8 Tablets 4 Tabl... UD PRN PO 04/29/17 22:00 05/29/17 21:59 Dextrose (Dextrose 50% 50ML Syringe) 25-50ML OF 50% DW IV FOR... UD PRN IV 04/29/17 22:00 05/29/17 21:59 Glucagon (Glucagon Inj) 1 mg UD PRN SQ 04/29/17 22:00 05/29/17 21:59 Amlodipine Besylate (Norvasc Tab) 2.5 mg DAILY PO 04/30/17 09:00 05/30/17 08:59 Future Hold Atorvastatin Calcium (Lipitor Tab) 40 mg HS PO 04/30/17 21:00 05/30/17 20:59 Future Hold Bupropion HCl (Wellbutrin-Sr Tab) 200 mg QPM PO 04/30/17 21:00 05/30/17 20:59 Future Hold Clopidogrel Bisulfate (plAVix TAB) 75 mg Q2D@0900 PO 04/30/17 09:00 05/30/17 08:59 Future Hold Furosemide (Lasix Tab) 80 mg BID17 PO 04/30/17 09:00 05/30/17 08:59 Future Hold Gabapentin (Neurontin Cap) 100 mg BID PO 04/30/17 09:00 05/30/17 08:59 Future Hold Levothyroxine Sodium (Synthroid Tab) 112 mcg DAILYBB PO 04/30/17 06:00 05/30/17 05:59 Future Hold Metoprolol Tartrate (Lopressor Tab) 50 mg BID PO 04/30/17 09:00 05/30/17 08:59 Future Hold Miscellaneous Information (Order Awaiting Action) 1 ea QS N/A 04/30/17 00:00 05/30/17 00:00 Miscellaneous Information (Order Awaiting Action) 1 ea QS N/A 04/30/17 00:00 05/30/17 00:00 Sevelamer HCl (Renagel Tab) 1,600 mg TID PO 04/30/17 09:00 05/30/17 08:59 Future Hold Miscellaneous Information (Order Awaiting Action) 1 ea QS N/A 04/30/17 00:00 05/30/17 00:00 Imipenem/ Cilastatin Sodium 200 mg/Dextrose 108 ml @ 108 mls/hr Q6H IV 04/30/17 08:00 05/07/17 07:59 04/30/17 09:47 108 MLS/HR Imipenem/ Cilastatin Sodium (Consult) 1 ea UD PRN N/A 04/30/17 09:00 05/30/17 08:59 Linezolid 600 mg/ Prmx 300 ml @ 300 mls/hr Q12H IV 04/30/17 11:00 05/02/17 10:59 04/30/17 11:05 300 MLS/HR Insulin Aspart (novoLOG ASPART) SLIDING SCALE PCHS SC 04/30/17 12:00 05/30/17 11:59 Methylprednisolone Sodium Succinate 20 mg/Syringe 0.32 ml @ 1.5 mls/min TID IV 04/30/17 14:00 05/30/17 13:59 Miscellaneous Information (Consult Glycemic Management Pharmacy) 1 ea UD PRN N/A 04/30/17 10:45 05/30/17 10:44 Insulin Human Regular 250 units/ Sodium Chloride 252.5 ml @ 0 mls/hr Q24H IV 04/30/17 11:00 05/30/17 10:59 04/30/17 11:20 2 MLS/HR Miscellaneous Information (Pending D5nss Ivf) 1 ea Q2H N/A 04/30/17 12:00 05/30/17 11:59 Family History FH: heart disease Negative for CKD / ESRD Social History Smoking Status: Never Smoker Alcohol Use: unsure Drug Use: none Marital Status: Housing Status: lives with family Occupation: disabled . Medically disabled. Former smoker (Quit 2013) Review of Systems Patient is poorly responsive and unable to provide a ROS Physical Exam Date Time Temp Pulse Resp B/P (MAP) Pulse Ox O2 Delivery O2 Flow Rate FiO2 04/30/17 11:18 96 14 95 Room Air 04/30/17 08:10 36.6 87 20 85/53 (64) 93 Room Air 04/30/17 07:25 80 14 92 Room Air 04/30/17 04:44 91 Room Air 04/30/17 04:43 36.2 04/30/17 04:22 98 Oxymask 10.0 04/30/17 04:01 92 17 98/64 (75) 97 04/30/17 03:05 87 19 85/57 (66) 89 04/30/17 03:02 84 15 77/57 (64) 79 04/30/17 02:01 100 20 127/50 (75) 96 04/30/17 01:00 84 16 94/63 (73) 97 04/30/17 00:15 98 Oxymask 10.0 04/30/17 00:00 37.2 84 16 80/55 (63) 97 Oxymask 10.0 04/29/17 23:01 89 17 83/56 (65) 94 Nasal Cannula 4.0 04/29/17 22:44 37.2 95 20 104/71 95 Nasal Cannula 4.0 04/29/17 22:24 37.2 99 20 104/71 (82) 93 Nasal Cannula 4.0 04/29/17 22:04 37.6 84 17 94/59 93 04/29/17 21:31 94/59 04/29/17 21:16 89 17 93 Nasal Cannula 3.0 04/29/17 21:11 86 16 93 Nasal Cannula 4.0 04/29/17 21:00 98/55 04/29/17 20:58 37.6 04/29/17 20:53 93/58 04/29/17 20:41 90 17 94 04/29/17 20:36 90 17 93 Nasal Cannula 4.0 04/29/17 20:31 90/54 04/29/17 20:06 86 16 95 04/29/17 20:00 96/62 04/29/17 20:00 93 Nasal Cannula 5.0 04/29/17 19:36 93 20 93 04/29/17 19:31 91 18 101/70 93 Nasal Cannula 5.0 04/29/17 19:13 119/68 04/29/17 19:00 94 18 93 04/29/17 18:55 94 Nasal Cannula 5.0 04/29/17 18:48 38.4 93 18 111/72 94 Nasal Cannula 5.0 04/29/17 18:40 98 04/29/17 18:38 111/72 General Appearance: + pertinent finding (acutely ill appearing) Head: atraumatic (temporal muscle wasting) Eyes: PERRL, EOMI Neck: no adenopathy Respiratory/Chest: + rhonchi Cardiovascular: regular rate, rhythm Abdomen/GI: normal bowel sounds, soft Extremities/Musculoskelatal: no pedal edema, + pertinent finding (AVF + bruit) Neurologic/Psych: + pertinent finding (obtunded) Skin: warm/dry Laboratory Results Last 24 Hours Test 04/29/17 18:53 04/29/17 18:55 04/29/17 18:57 04/29/17 19:05 White Blood Count 33.14 K/uL Red Blood Count 3.90 M/uL Hemoglobin 13.6 g/dL Hematocrit 41.1 % Mean Corpuscular Volume 105.4 fL Mean Corpuscular Hemoglobin 34.9 pg Mean Corpuscular Hemoglobin Concent 33.1 g/dl Platelet Count 239 K/uL Mean Platelet Volume 9.7 fL Neutrophils (%) (Auto) 91.8 % Lymphocytes (%) (Auto) 2.0 % Monocytes (%) (Auto) 5.6 % Eosinophils (%) (Auto) 0.0 % Basophils (%) (Auto) 0.1 % Neutrophils # (Auto) 30.41 K/uL Lymphocytes # (Auto) 0.67 K/uL Monocytes # (Auto) 1.84 K/uL Eosinophils # (Auto) 0.01 K/uL Basophils # (Auto) 0.04 K/uL RDW Standard Deviation 56.0 fL RDW Coefficient of Variation 14.6 % Immature Granulocyte % (Auto) 0.5 % Immature Granulocyte # (Auto) 0.17 K/uL Prothrombin Time 11.0 SECONDS Prothromb Time International Ratio 1.0 Activated Partial Thromboplast Time 31.9 SECONDS Partial Thromboplastin Ratio 1.2 Sodium Level 131 mmol/L Potassium Level 4.1 mmol/L Chloride Level 93 mmol/L Carbon Dioxide Level 27 mmol/L Anion Gap 11.0 mmol/L Blood Urea Nitrogen 24 mg/dl Creatinine 7.32 mg/dl Estimated GFR () 9.1 Estimated GFR (Non- 7.8 BUN/Creatinine Ratio 3.3 Random Glucose 151 mg/dl Calcium Level 8.6 mg/dl Magnesium Level 2.2 mg/dl Total Bilirubin 0.8 mg/dl Aspartate Amino Transf (AST/SGOT) 22 U/L Alanine Aminotransferase (ALT/SGPT) 27 U/L Alkaline Phosphatase 162 U/L Troponin I 0.051 ng/ml Total Protein 7.5 gm/dl Albumin 3.0 gm/dl Globulin 4.5 gm/dl Albumin/Globulin Ratio 0.7 Thyroid Stimulating Hormone (TSH) 1.110 uIu/ml Free Thyroxine 1.06 ng/dl Influenza Type A (RT-PCR) Neg for Influ A Influenza Type B (RT-PCR) Neg for Influ B Bedside Glucose 146 mg/dl Bedside Lactic Acid Venous 1.42 mmol/L Test 04/29/17 21:54 04/30/17 06:08 04/30/17 09:43 04/30/17 10:12 White Blood Count 28.32 K/uL 23.81 K/uL Red Blood Count 3.81 M/uL 3.69 M/uL Hemoglobin 13.4 g/dL 13.0 g/dL Hematocrit 40.3 % 39.7 % Mean Corpuscular Volume 105.8 fL 107.6 fL Mean Corpuscular Hemoglobin 35.2 pg 35.2 pg Mean Corpuscular Hemoglobin Concent 33.3 g/dl 32.7 g/dl Platelet Count 230 K/uL 224 K/uL Mean Platelet Volume 10.1 fL 10.4 fL Neutrophils (%) (Auto) 90.1 % 95.9 % Lymphocytes (%) (Auto) 3.4 % 1.1 % Monocytes (%) (Auto) 6.0 % 2.6 % Eosinophils (%) (Auto) 0.0 % 0.0 % Basophils (%) (Auto) 0.1 % 0.1 % Neutrophils # (Auto) 25.50 K/uL 22.84 K/uL Lymphocytes # (Auto) 0.96 K/uL 0.26 K/uL Monocytes # (Auto) 1.70 K/uL 0.61 K/uL Eosinophils # (Auto) 0.00 K/uL 0.00 K/uL Basophils # (Auto) 0.04 K/uL 0.03 K/uL RDW Standard Deviation 55.7 fL 57.3 fL RDW Coefficient of Variation 14.4 % 14.5 % Immature Granulocyte % (Auto) 0.4 % 0.3 % Immature Granulocyte # (Auto) 0.12 K/uL 0.07 K/uL Sodium Level 132 mmol/L 131 mmol/L Potassium Level 4.5 mmol/L 4.8 mmol/L Chloride Level 91 mmol/L 91 mmol/L Carbon Dioxide Level 26 mmol/L 17 mmol/L Anion Gap 14.0 mmol/L 23.0 mmol/L Blood Urea Nitrogen 28 mg/dl 50 mg/dl Creatinine 7.54 mg/dl 8.75 mg/dl Estimated GFR () 8.7 7.3 Estimated GFR (Non- 7.5 6.3 BUN/Creatinine Ratio 3.7 5.7 Random Glucose 241 mg/dl 422 mg/dl Lactic Acid Level 1.5 mmol/L Calcium Level 8.5 mg/dl 8.8 mg/dl Total Bilirubin 0.8 mg/dl 1.0 mg/dl Aspartate Amino Transf (AST/SGOT) 16 U/L 21 U/L Alanine Aminotransferase (ALT/SGPT) 22 U/L 23 U/L Alkaline Phosphatase 152 U/L 162 U/L Total Protein 7.0 gm/dl 7.0 gm/dl Albumin 2.9 gm/dl 2.9 gm/dl Globulin 4.1 gm/dl 4.1 gm/dl Albumin/Globulin Ratio 0.7 0.7 Estimated Average Glucose 128 mg/dl Hemoglobin A1c 6.1 % Troponin I 0.140 ng/ml Vitamin B12 Level 680 pg/mL Folate 10.17 ng/mL Prothrombin Time 13.2 SECONDS Prothromb Time International Ratio 1.3 Activated Partial Thromboplast Time 33.4 SECONDS Partial Thromboplastin Ratio 1.3 Est Creatinine Clear Calc Drug Dose 10.3 ml/min Ammonia 27.6 umol/L Beta-Hydroxybutyric Acid 60.71 mg/dL Bedside Glucose 392 mg/dl Impression (1) Altered level of consciousness (2) Sepsis (3) Hypotension arterial (4) Tracheomalacia (5) End-stage renal disease on hemodialysis Patient admitted to the hospital w/ presumed sepsis syndrome. He has a history of severe tracheal malacia with chronic bronchiectasis. He is now on broad spectrum antibiotics. Blood cultures are pending. CXR with mild congestive changes and bibasilar infiltrates PMH - ESRD due to diabetic nephropathy on IHD since 12/25 (HD TTS at [facility] - 4 hrs 2K 2Ca F180NR Qb 450 cc/min HCO3 34 EDW 83 kg), IDDM, HTN , PVD s/p R femoral artery bypass, anemia, hypothyroidism, hypercholesterolemia , bipolar disorder, COPD w/ severe tracheomalacia and chronic bronchiectasis ( quit smoking ~ 2013). Recommendations END STAGE RENAL DISEASE: -- HD today for correction of hyponatremia and metabolic acidosis. No UF ordered due to relative hypotension. Orders entered into EMR and HD RN notified -- Recommend changing PRP to qAM monitoring HYPERTENSION: -- Blood pressure has been labile. Patient may require transfer to ICU for pressor support. Primary service has requested consultation w/ critical care team ANEMIA: -- Hgb is acceptable. No acute indication for GINO at this time. Will monitor. ID: -- Agree w/ broad spectrum antibiotics. Await blood culture results
[2017-04-30] MEDS ORDERED: PENDING D5NSS IVF SCH (12:00)
[2017-04-30] MEDS: INSULIN ASPART 100 UNITS/ML 3 ML PEN SC SCH ×3 (12:00→21:00)
--- NOTE | 2017-04-30 12:38 | Family Medicine Progress Note ---
Progress Note Date of Service Apr 30, 2017. Subjective Pt evaluation today including: physical exam, chart review, lab review, review of studies, conversation w/ event management consultant, review of inpatient medication list Patient is non verbal, response only to pain and it is moaning , unable to obtain an ROS Medications Medications Administered Medications (Trade) Dose Ordered Sig/Etta Route Start Time Stop Time Status Last Admin Dose Admin Sodium Chloride 500 ml @ 999 mls/hr Q31M ONCE IV 04/29/17 18:35 04/29/17 19:05 DC 04/29/17 19:40 999 MLS/HR Cefepime HCl 2000 mg/Dextrose 112.5 ml @ 225 mls/hr NOW ONCE IV 04/29/17 18:45 04/29/17 19:14 DC 04/29/17 19:40 225 MLS/HR Acetaminophen (Tylenol Supp) 975 mg NOW STAT ND 04/29/17 18:35 04/29/17 18:41 DC 04/29/17 19:09 975 MG Albuterol/ Ipratropium (Duoneb) 3 ml NOW STAT INH 04/29/17 18:39 04/29/17 18:41 DC 04/29/17 19:03 3 ML Aztreonam 2000 mg/ Dextrose 110 ml @ 100 mls/hr NOW STAT IV 04/29/17 19:40 04/29/17 20:45 DC 04/29/17 20:03 100 MLS/HR Heparin Sodium (Porcine) (Heparin Sq 5000 Unit/0.5ml) 5,000 unit Q12 SQ 04/30/17 09:00 05/30/17 08:59 04/30/17 08:25 5,000 UNIT Insulin Aspart (novoLOG ASPART) SLIDING SCALE G... ACHS SC 04/30/17 06:45 04/30/17 11:00 DC 04/30/17 08:16 10 UNITS Albuterol/ Ipratropium (Duoneb) 3 ml QIDR INH 04/30/17 08:00 05/30/17 07:59 04/30/17 11:18 3 ML Vancomycin HCl (Vancomycin 1gm/ 270ml Nss) 1 gm STK-MED ONCE .ROUTE 04/29/17 21:42 04/29/17 21:43 DC 04/29/17 21:44 1 GM Vancomycin HCl 500 mg/Sodium Chloride 260 ml @ 125 mls/hr TODAY@0000 IV 04/30/17 00:00 04/30/17 02:05 DC 04/30/17 00:00 125 MLS/HR Imipenem/ Cilastatin Sodium 200 mg/Dextrose 108 ml @ 108 mls/hr Q6H IV 04/30/17 08:00 05/07/17 07:59 04/30/17 09:47 108 MLS/HR Methylprednisolone Sodium Succinate 60 mg/Syringe 0.96 ml @ 1.5 mls/min 0930 ONCE IV 04/30/17 09:30 04/30/17 09:31 DC 04/30/17 09:47 1.5 MLS/MIN Linezolid 600 mg/ Prmx 300 ml @ 300 mls/hr Q12H IV 04/30/17 11:00 05/02/17 10:59 04/30/17 11:05 300 MLS/HR Insulin Human Regular 250 units/ Sodium Chloride 252.5 ml @ 0 mls/hr Q24H IV 04/30/17 11:00 05/30/17 10:59 04/30/17 11:20 2 MLS/HR Insulin Human Regular 2 unit/ Syringe 2 ml @ 1 mls/min TODAY@1100 IV 04/30/17 11:00 04/30/17 11:01 DC 04/30/17 11:21 1 MLS/MIN Perflutren Lipid Microsphere (Definity) 2 ml ONE ONCE IV 04/30/17 11:23 04/30/17 11:24 DC 04/30/17 11:23 2 ML Objective Vital Signs Date Time Temp Pulse Resp B/P (MAP) Pulse Ox O2 Delivery O2 Flow Rate FiO2 04/30/17 11:59 36.5 95 14 103/62 (76) 96 Room Air 04/30/17 11:18 96 14 95 Room Air 04/30/17 08:10 36.6 87 20 85/53 (64) 93 Room Air 04/30/17 07:25 80 14 92 Room Air 04/30/17 04:44 91 Room Air 04/30/17 04:43 36.2 04/30/17 04:22 98 Oxymask 10.0 04/30/17 04:01 92 17 98/64 (75) 97 04/30/17 03:05 87 19 85/57 (66) 89 04/30/17 03:02 84 15 77/57 (64) 79 04/30/17 02:01 100 20 127/50 (75) 96 04/30/17 01:00 84 16 94/63 (73) 97 04/30/17 00:15 98 Oxymask 10.0 04/30/17 00:00 37.2 84 16 80/55 (63) 97 Oxymask 10.0 04/29/17 23:01 89 17 83/56 (65) 94 Nasal Cannula 4.0 04/29/17 22:44 37.2 95 20 104/71 95 Nasal Cannula 4.0 04/29/17 22:24 37.2 99 20 104/71 (82) 93 Nasal Cannula 4.0 04/29/17 22:04 37.6 84 17 94/59 93 04/29/17 21:31 94/59 04/29/17 21:16 89 17 93 Nasal Cannula 3.0 04/29/17 21:11 86 16 93 Nasal Cannula 4.0 04/29/17 21:00 98/55 04/29/17 20:58 37.6 04/29/17 20:53 93/58 04/29/17 20:41 90 17 94 04/29/17 20:36 90 17 93 Nasal Cannula 4.0 04/29/17 20:31 90/54 04/29/17 20:06 86 16 95 04/29/17 20:00 96/62 04/29/17 20:00 93 Nasal Cannula 5.0 04/29/17 19:36 93 20 93 04/29/17 19:31 91 18 101/70 93 Nasal Cannula 5.0 04/29/17 19:13 119/68 04/29/17 19:00 94 18 93 04/29/17 18:55 94 Nasal Cannula 5.0 04/29/17 18:48 38.4 93 18 111/72 94 Nasal Cannula 5.0 04/29/17 18:40 98 04/29/17 18:38 111/72 Physical Exam General Appearance: + mild distress Eyes: normal inspection, PERRL, sclerae normal ENT: + pertinent finding (refuses to open mouth for inspection, clenches jaw with attempted opening) Neck: supple, no JVD, trachea midline Respiratory/Chest: + pertinent finding (coarse breath sounds throughout with exp wheezing, crackles are noted from mid lung to bases bilat, tachypnea without accessory muscle use) Cardiovascular: regular rate, rhythm, + systolic murmur (3/6) Abdomen: normal bowel sounds, + distended (mild) Extremities: + pertinent finding (multiple amputations of toes appreciated with vascular changes, no pedal pulses could be palpated) Neurologic/Psychiatric: + pertinent finding (responding to pain,moves to pain) Skin: normal color, warm/dry, no rash Lymphatic: no adenopathy Laboratory Results Results Past 24 Hours Test 04/29/17 18:53 04/29/17 18:55 04/29/17 18:57 04/29/17 19:05 Range/Units White Blood Count 33.14 4.8-10.8 K/uL Red Blood Count 3.90 4.7-6.1 M/uL Hemoglobin 13.6 14.0-18.0 g/dL Hematocrit 41.1 42-52 % Mean Corpuscular Volume 105.4 80-100 fL Mean Corpuscular Hemoglobin 34.9 25-34 pg Mean Corpuscular Hemoglobin Concent 33.1 32-36 g/dl Platelet Count 239 130-400 K/uL Mean Platelet Volume 9.7 7.4-10.4 fL Neutrophils (%) (Auto) 91.8 % Lymphocytes (%) (Auto) 2.0 % Monocytes (%) (Auto) 5.6 % Eosinophils (%) (Auto) 0.0 % Basophils (%) (Auto) 0.1 % Neutrophils # (Auto) 30.41 1.4-6.5 K/uL Lymphocytes # (Auto) 0.67 1.2-3.4 K/uL Monocytes # (Auto) 1.84 0.11-0.59 K/uL Eosinophils # (Auto) 0.01 0-0.5 K/uL Basophils # (Auto) 0.04 0-0.2 K/uL RDW Standard Deviation 56.0 36.4-46.3 fL RDW Coefficient of Variation 14.6 11.5-14.5 % Immature Granulocyte % (Auto) 0.5 % Immature Granulocyte # (Auto) 0.17 0.00-0.02 K/uL Prothrombin Time 11.0 9.0-12.0 SECONDS Prothromb Time International Ratio 1.0 0.9-1.1 Activated Partial Thromboplast Time 31.9 21.0-31.0 SECONDS Partial Thromboplastin Ratio 1.2 Sodium Level 131 136-145 mmol/L Potassium Level 4.1 3.5-5.1 mmol/L Chloride Level 93 98-107 mmol/L Carbon Dioxide Level 27 21-32 mmol/L Anion Gap 11.0 3-11 mmol/L Blood Urea Nitrogen 24 7-18 mg/dl Creatinine 7.32 0.60-1.40 mg/dl Estimated GFR () 9.1 Estimated GFR (Non- 7.8 BUN/Creatinine Ratio 3.3 10-20 Random Glucose 151 70-99 mg/dl Calcium Level 8.6 8.5-10.1 mg/dl Magnesium Level 2.2 1.8-2.4 mg/dl Total Bilirubin 0.8 0.2-1 mg/dl Aspartate Amino Transf (AST/SGOT) 22 15-37 U/L Alanine Aminotransferase (ALT/SGPT) 27 12-78 U/L Alkaline Phosphatase 162 45-117 U/L Troponin I 0.051 0-0.045 ng/ml Total Protein 7.5 6.4-8.2 gm/dl Albumin 3.0 3.4-5.0 gm/dl Globulin 4.5 2.5-4.0 gm/dl Albumin/Globulin Ratio 0.7 0.9-2 Thyroid Stimulating Hormone (TSH) 1.110 0.300-4.500 uIu/ml Free Thyroxine 1.06 0.80-1.60 ng/dl Influenza Type A (RT-PCR) Neg for Influ A NEG Influenza Type B (RT-PCR) Neg for Influ B NEG Bedside Glucose 146 70-99 mg/dl Bedside Lactic Acid Venous 1.42 0.90-1.70 mmol/L Test 04/29/17 21:54 04/30/17 06:08 04/30/17 09:43 04/30/17 10:12 Range/Units White Blood Count 28.32 23.81 4.8-10.8 K/uL Red Blood Count 3.81 3.69 4.7-6.1 M/uL Hemoglobin 13.4 13.0 14.0-18.0 g/dL Hematocrit 40.3 39.7 42-52 % Mean Corpuscular Volume 105.8 107.6 80-100 fL Mean Corpuscular Hemoglobin 35.2 35.2 25-34 pg Mean Corpuscular Hemoglobin Concent 33.3 32.7 32-36 g/dl Platelet Count 230 224 130-400 K/uL Mean Platelet Volume 10.1 10.4 7.4-10.4 fL Neutrophils (%) (Auto) 90.1 95.9 % Lymphocytes (%) (Auto) 3.4 1.1 % Monocytes (%) (Auto) 6.0 2.6 % Eosinophils (%) (Auto) 0.0 0.0 % Basophils (%) (Auto) 0.1 0.1 % Neutrophils # (Auto) 25.50 22.84 1.4-6.5 K/uL Lymphocytes # (Auto) 0.96 0.26 1.2-3.4 K/uL Monocytes # (Auto) 1.70 0.61 0.11-0.59 K/uL Eosinophils # (Auto) 0.00 0.00 0-0.5 K/uL Basophils # (Auto) 0.04 0.03 0-0.2 K/uL RDW Standard Deviation 55.7 57.3 36.4-46.3 fL RDW Coefficient of Variation 14.4 14.5 11.5-14.5 % Immature Granulocyte % (Auto) 0.4 0.3 % Immature Granulocyte # (Auto) 0.12 0.07 0.00-0.02 K/uL Sodium Level 132 131 136-145 mmol/L Potassium Level 4.5 4.8 3.5-5.1 mmol/L Chloride Level 91 91 98-107 mmol/L Carbon Dioxide Level 26 17 21-32 mmol/L Anion Gap 14.0 23.0 3-11 mmol/L Blood Urea Nitrogen 28 50 7-18 mg/dl Creatinine 7.54 8.75 0.60-1.40 mg/dl Estimated GFR () 8.7 7.3 Estimated GFR (Non- 7.5 6.3 BUN/Creatinine Ratio 3.7 5.7 10-20 Random Glucose 241 422 70-99 mg/dl Lactic Acid Level 1.5 0.4-2.0 mmol/L Calcium Level 8.5 8.8 8.5-10.1 mg/dl Total Bilirubin 0.8 1.0 0.2-1 mg/dl Aspartate Amino Transf (AST/SGOT) 16 21 15-37 U/L Alanine Aminotransferase (ALT/SGPT) 22 23 12-78 U/L Alkaline Phosphatase 152 162 45-117 U/L Total Protein 7.0 7.0 6.4-8.2 gm/dl Albumin 2.9 2.9 3.4-5.0 gm/dl Globulin 4.1 4.1 2.5-4.0 gm/dl Albumin/Globulin Ratio 0.7 0.7 0.9-2 Estimated Average Glucose 128 mg/dl Hemoglobin A1c 6.1 4.5-5.6 % Troponin I 0.140 0-0.045 ng/ml Vitamin B12 Level 680 211-911 pg/mL Folate 10.17 >5.38 ng/mL Prothrombin Time 13.2 9.0-12.0 SECONDS Prothromb Time International Ratio 1.3 0.9-1.1 Activated Partial Thromboplast Time 33.4 21.0-31.0 SECONDS Partial Thromboplastin Ratio 1.3 Est Creatinine Clear Calc Drug Dose 10.3 ml/min Ammonia 27.6 11-32 umol/L Beta-Hydroxybutyric Acid 60.71 0.2-2.81 mg/dL Bedside Glucose 392 70-99 mg/dl Test 04/30/17 12:00 04/30/17 12:19 Range/Units Microbiology Results 04/29/17 Blood Culture, Received Pending 04/29/17 Blood Culture, Received Pending 04/29/17 MRSA DNA Surveillance Screen - Final, Complete Specimen Negative for MRSA by DNA Probe Assessment and Plan 51 year old male here with a PMH of diabetes, COPD, ESRD on dialysis, hx of PE, Bipolar and hypothyroidism that presented to the ED with ALOC and changes on CXR concerning for a hospital acquired PNA Sepsis most likely secondary to infectious bronchiectasis/HAP and complicated by a history of severe tracheomalacia/ chronic bronchiectasis, COPD and positive resp culture with ESBL 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 XYLOSOXIDANS in 2016 - Blood pressure did improve after receiving a dose of steroids from 70/80s systolic to 104 systolic; currently no oxygen need - Methylpred 20 mg q8h IV - Due to ESBL transitioned to Primaxin and Zyvox; ID consulted - Pulmonary consult , greatly appreciate recs - blood cultures x2 pending results - annette Etta - ABG pending - Home Ellipta held DKA in setting of acute infection and no insulin pump; DM1 on insulin pump - patient was not receiving his BL insulin via pump and BSG became elevated - insulin infusion initiated to titrate BSG and will transition when able - glycemic consult considering complex nature of this case - once in goal will additionally add D5W with NSS IVF; considering patient is a dialysis patient will be wary about additional K in fluids with frequent Elevated troponin, possible NSTEMI ACS II in light of septic picture - trend troponin - echo pending - EKG repeat was not significantly changed - monitor on tele - Echo August 2016: * There is mild concentric left ventricular hypertrophy with EF 55-65% * Grade I diastolic dysfunction, (abnormal relaxation pattern). * Moderate valvular aortic stenosis. * There is mild mitral stenosis. * Inferior wall from base to mid-ventricle is hypokinetic - patient has a history of PE,no anticoag, nonspecific changes on EKG will r/o PE with CTA prior to his HD ESRD secondary to diabetic nephropathy - ( T,R,S) - nephrology consulted, appreciate recs - trend renal function - monitor I/O's - HD today - Hold Sensipar 20 mg daily and Sevelamer 1600 mg tid while NPO HTN/HLD/ PAD - Lopressor 50 mg bid, Amlodipine 2.5 mg 4x/wk, plavix 75 mg daily held - Atorvastatin 40 mg daily held Chronic diastolic CHF - Lasix was held on admission, no evidence of fluid overload on exam and hypotensive; taking 80 mg bid Hypothyroidism - levo 112 mcg daily PO held Peripheral neuropathy - Gabapentin 100 mg bid held Mood Disorder Wellbutrin held while NPO - NOT to be restarted while on Linezolid DVT prophylaxis - heparin Subq FULL CODE Continued [facility] stay due to: abnormal vital signs, multiple IV medications needed Discharge planning: uncertain Reviewed: Pt Seen/Exam by Me History lethargic. unarousable. Constitutional: denies: fever General Appearance: no apparent distress Respiratory: lungs clear, no respiratory distress Cardiovascular: regular rate, rhythm Neurologic/Psychiatric: other (unarousable. ) Skin Characteristics: warm/dry Assessment/Plan Resident Physician Supervision Note: I independently interviewed and examined the patient and verified the dunn history and physical, reviewed labs and image studies, discussed the case with the resident Dr. Silva and agree with the findings and care plan.
[2017-04-30] MEDS ORDERED: OPTIRAY 320 IV PRN (13:45)
[2017-04-30] MEDS ORDERED: METHYLPREDNISOLONE IV 60 MG in SYRINGE 0 ML IV SCH (14:00)
--- NOTE | 2017-04-30 14:18 | DIAGNOSTIC IMAGING REPORT ---
(CHEST FOR PE) ANGIO WITH CLINICAL HISTORY: 51 years-old Male presenting with ^ELEVATED TROPONIN, HYPOXIA, on dialysis. TECHNIQUE: Multidetector CT angiography of the chest was performed after administration of intravenous contrast. 3-D volumetric and/or maximum intensity projection (MIP) images were subsequently reconstructed for review. IV contrast: 94 mL of Optiray 320. A dose lowering technique was used consistent with the principles of ALARA (as low as reasonably achievable). COMPARISON: 03/26/2016. CT DOSE (mGy.cm): The estimated cumulative dose is 555.96 mGy.cm. FINDINGS: Nursing Assistants Teacher topogram: Left basilar opacity. Pulmonary vasculature: The study is suboptimal for the assessment of the pulmonary vascular tree secondary to respiratory motion artifact. Allowing for limited image quality, no central filling defect to suggest pulmonary embolus. Main pulmonary artery is mildly enlarged, measuring 3.2 cm in transverse dimension. No flattening of the interventricular septum. No intracardiac filling defect. No reflux of contrast into the hepatic veins. Remaining chest: On soft tissue windows, normal thyroid and thoracic inlet. Enlarged mediastinal and right hilar lymph nodes. Atherosclerosis of the aorta. Coronary artery, mitral annular, aortic valve calcification. Normal heart size. No pericardial or pleural effusion. Upper abdomen normal. On lung windows, extensive dependent peribronchovascular consolidation and volume loss. Extensive centrilobular groundglass and solid nodularity in the bilateral upper lobes. This also affects the superior segments of the lower lobes. Flattening of the lower trachea possibly due to the phase of respiration (series 4 image 199). On bone windows, sclerotic bone marrow. IMPRESSION: 1. Allowing for suboptimal image quality, no evidence of pulmonary embolus. 2. Extensive centrilobular groundglass and solid nodularity in the bilateral upper lobes and superior segments of the lower lobes. This is most consistent with infectious bronchiolitis. 3. Extensive lower lobe volume loss. 4. Apparent narrowing of the lower trachea, likely exaggerated by the phase of respiration. 5. Likely reactive mediastinal and right hilar lymph nodes. 6. Sclerotic bone marrow could relate to renal osteodystrophy. The report will be called/faxed according to standard departmental protocol. Electronically signed by: Xavier Green M.D. 04/30/2017 2:17 PM Dictated Date/Time: 04/30/2017 2:11 PM
--- NOTE | 2017-04-30 14:34 | Pharmacy Progress Note ---
Glycemic Control Intl Consult Date of Service Apr 30, 2017. Scope Glycemic Pharmacist consulted by Dr Silva on 04/30/17 for glycemic control and to write orders per [facility] inpatient glycemic control protocol Objective Weight (Kilograms): 82.400 Accuchecks BSG (last 24hrs): Test 04/29/17 18:53 04/29/17 18:57 04/29/17 21:54 04/30/17 09:43 Random Glucose 151 mg/dl (70-99) 241 mg/dl (70-99) 422 mg/dl (70-99) Bedside Glucose 146 mg/dl (70-99) Test 04/30/17 10:12 04/30/17 12:33 04/30/17 14:00 Bedside Glucose 392 mg/dl (70-99) 339 mg/dl (70-99) Laboratory Data (last 24hrs) Test 04/29/17 18:53 04/29/17 21:54 04/30/17 06:08 04/30/17 09:43 Anion Gap 11.0 mmol/L 14.0 mmol/L 23.0 mmol/L BUN/Creatinine Ratio 3.3 3.7 5.7 Blood Urea Nitrogen 24 mg/dl 28 mg/dl 50 mg/dl Creatinine 7.32 mg/dl 7.54 mg/dl 8.75 mg/dl Potassium Level 4.1 mmol/L 4.5 mmol/L 4.8 mmol/L Sodium Level 131 mmol/L 132 mmol/L 131 mmol/L White Blood Count 33.14 K/uL 28.32 K/uL 23.81 K/uL Red Blood Count 3.90 M/uL 3.81 M/uL 3.69 M/uL Hemoglobin 13.6 g/dL 13.4 g/dL 13.0 g/dL Hematocrit 41.1 % 40.3 % 39.7 % Mean Corpuscular Volume 105.4 fL 105.8 fL 107.6 fL Mean Corpuscular Hemoglobin 34.9 pg 35.2 pg 35.2 pg Mean Corpuscular Hemoglobin Concent 33.1 g/dl 33.3 g/dl 32.7 g/dl Platelet Count 239 K/uL 230 K/uL 224 K/uL Mean Platelet Volume 9.7 fL 10.1 fL 10.4 fL Neutrophils (%) (Auto) 91.8 % 90.1 % 95.9 % Lymphocytes (%) (Auto) 2.0 % 3.4 % 1.1 % Monocytes (%) (Auto) 5.6 % 6.0 % 2.6 % Eosinophils (%) (Auto) 0.0 % 0.0 % 0.0 % Basophils (%) (Auto) 0.1 % 0.1 % 0.1 % Neutrophils # (Auto) 30.41 K/uL 25.50 K/uL 22.84 K/uL Lymphocytes # (Auto) 0.67 K/uL 0.96 K/uL 0.26 K/uL Monocytes # (Auto) 1.84 K/uL 1.70 K/uL 0.61 K/uL Eosinophils # (Auto) 0.01 K/uL 0.00 K/uL 0.00 K/uL Basophils # (Auto) 0.04 K/uL 0.04 K/uL 0.03 K/uL Hemoglobin A1c 6.1 % Test 04/30/17 14:00 HbA1c Test 04/30/17 06:08 Hemoglobin A1c 6.1 % (4.5-5.6) H Recent Pertinent Medications Outpatient Anti-diabetic Regimen: * Novolog pump The patient is currently receiving: * Basal insulin: Lantus -- units every -- hours * Correctional Insulin: Novolog Correction per scale ACHS Goal Range: Low 120 mg/dL - High 160 mg/dL Correction Factor: 20 mg/dL/unit * Prandial insulin: Per carb ratio of 1 unit per 10 grams CHO consumed Risk Factors for Insulin Resistance: * Steroids: Solu-Medrol 60 mg then 20 mg IV TID * Infection: Pneumonia - on Primaxin and Zyvox * Diet: NPO Assessment & Plan ASSESSMENT: * Mr Clark is a 51 y/o M with a PMH of ESRD on dialysis TuThSa and COPD who presents with HAP and sepsis. Mr Clark was admitted yesterday evening and at some point the patient's insulin pump was removed. He is a type 1 diabetic. This morning the patient had altered mental status. He was started on aggressive steroids and antibiotics. * The patient had metabolic changes correlating with DKA (bicarb = 17, anion gap of 23, and BHA of 60.71)- most likely caused by lack of basal insulin. Insulin infusion begun per protocol. Do not recommend titrating off insulin infusion until patient has more sound mental state and able to take PO consistently. * Regarding DKA in a type 1 on ESRD... it is recommended that the patient receive fluid boluses due to the propensity for fluid overload. Potassium should be reserved until the patient demonstrates lower potassium... dextrose will be added when the patient hits his goal range since he is a type [address] Silva spoke with nephrology who was okay with a D5 at 50 mLs/hr. PLAN FOR INPATIENT GLYCEMIC CONTROL: * Starting IV insulin infusion per moderate (moderate/severe) stress protocol * Goal Range 150 - 250 mg/dl * In the critical care setting, continuous IV insulin infusion has been shown to be the best method for achieving glycemic targets. * Please note that the plan above was derived based on current level of insulin resistance and hospital stress. These recommendations are appropriate for inpatient admission only. Plan of care upon discharge will need to be reassessed to avoid potential outpatient hypo/hyperglycemia. Thank you.
--- NOTE | 2017-04-30 14:43 | PULMONARY CONSULTATION ---
DATE OF CONSULTATION: 04/30/2017 TIME: 1300 REASON FOR CONSULTATION: Altered mental status/cardiopulmonary evaluation. HISTORY OF PRESENT ILLNESS: A 51-year-old white male was admitted yesterday at 2137 onto the hospitalist service. The patient found his mental status altered and the initial history by Dr. Juan Martinez was obtained through the EMS and the ER personnel as his was not in attendance. The patient is difficult to manage diabetic, on insulin pump and usually controls his sugars very closely. He was brought in and saturations were 85%. He has been on hemodialysis Tuesday, and Saturdays, and recently was placed on antibiotics. He has been evaluated by Dr. Ojeda within the past week and found to have in addition with bronchiectasis extensive dynamic airway collapse. Bronchoscopy was carried out on 04/18/2017 and showed posterior wall collapse with/EDAC right mainstem bronchus and bronchus intermedius with diffuse secretions throughout the right tracheobronchial tree. In addition, the left mainstem bronchus showed 95% EDAC and then also right below the cricoid cartilage in the trachea 95% of the posterior wall collapse/EDAC with diffuse mucous secretions. Cultures from the bronchial washings grew out Haemophilus beta-lactamase negative in addition to a fungus to be identified later. Chest x-ray showed decreased bibasilar opacities, more dense on the left, possibly representing aspiration and mild cardiomegaly with fluid overload. Chest CT on 03/26/2017 showed bilateral airspace opacities with lower lobe bronchiectasis and dense lower lobe consolidation. The patient was seen by nephrology today, specifically Dr. Leger. Requested to do so by Dr. Sorensen. This was for inpatient hemodialysis. He has had insulin-dependent diabetes mellitus since childhood and has developed diabetic nephropathy and progressive renal failure in December 25 of this year. He dialyzes TTS at the [facility] hemodialysis unit. He has got bipolar disorder, hypertension, anemia, secondary hyperparathyroidism, dyslipidemia, and COPD along with peripheral vascular disease and diabetic foot ulcers as well as severe tracheomalacia with chronic bronchiectasis, recent infection noted, he is now on an insulin drip. He is not responding to me but will respond to pain with grimacing and withdrawal of that limb. He is on nocturnal CPAP therapy at home. For details of history of allergies, inpatient medications, family and social history, I refer you to current and past record. PHYSICAL EXAMINATION: GENERAL: Well-developed, chronically ill-appearing white male, not responding to verbal commands but with adequate saturation on room air. VITAL SIGNS: Temperature 36.5, pulse 95 and regular, respiratory rate 14, blood pressure 103/62, O2 sat 96% on room air. SKIN: Warm and dry. HEENT: Atraumatic, normocephalic, PERRLA, EOMI. Conjunctivae pale. LUNGS: Coarse rhonchi diffusely without obvious inspiratory stridor but large adventitious breath sounds heard over the trachea. CARDIAC: Regular rate and rhythm. I do not appreciate a gallop. ABDOMEN: Soft, scaphoid. EXTREMITIES: Trace pedal edema. No clubbing or peripheral cyanosis, aVF with bruit palpable and audible. NEUROLOGICAL: No obvious lateralizing signs. Not arousable to verbal commands but due to pain and stimuli, but will not open his eyes. LABORATORY DATA: ABG on room air just obtained, pH 7.44, pCO2 35, pO2 of 56 with a significant A-a gradient. Other laboratory data - white count 23,800 H&H 13 and 39. Creatinine 8.7; glucose levels in the high 300s and low 400s. Lactic acid has been 1.5. OVERALL ASSESSMENT AND PLAN: A 51-year-old with end-stage renal disease and insulin-dependent diabetes mellitus on hemodialysis schedule, admitted with altered sensorium, currently being treated for H. flu tracheobronchitis/pneumonitis with a history of severe tracheomalacia and possible sepsis, although lactic acid normalization would speak against that, but now with altered sensorium. Head CT done last night shows chronic changes with no acute process, suspect encephalopathy. I would place the patient on BiPAP therapy as per protocol and would also supplement with at least 2 liters of oxygen as patient does have an A-a gradient. The patient is currently IV linezolid and also on IV Solu-Medrol along with IV Primaxin. I certainly would make patient n.p.o. given his altered mental status and I suspect he has been chronically aspirating. In addition, I would use BiPAP rather than CPAP for his tracheomalacia and endoscopic dynamic airway collapse, which is quite prevalent and watch for signs of impending respiratory failure. The patient is certainly at a risk for additional hospital-acquired infection given his altered sensorium and multiple comorbidities. We will follow along with you. We will make Dr. Bragg, who is covering from the ICU aware of the patient is status.
[2017-04-30 15:28] LABS: CALCIUM 9.2 mg/dl (8.5-10.1); CREATININE 9.23 mg/dl (0.60-1.40); PHOSPHORUS 3.7 mg/dl (2.5-4.9); POTASSIUM 4.2 mmol/L (3.5-5.1)
--- NOTE | 2017-04-30 15:45 | ECHOCARDIOGRAM REPORT ---
*NOTICE TO RECEIVING LIBERTARIAN AGENCY This information is strictly Confidential and protected under [place] law. [place] law prohibits you from making any further disclosure of this information unless further disclosure is expressly permitted by the written consent of the person to whom it pertains or is authorized by law. A general authorization for the release of medical or other information is not sufficient for this purpose. Hospital accepts no responsibility if the information is made available to any other person, INCLUDING THE PATIENT. Interpretation Summary * Name: YU HOOK Study Date: 04/30/2017 10:50 AM BP: 85/53 mmHg * Patient Location: C.2E\S\E204\S\1 HR: 87 * : 1965 (M/d/yyyy) Gender: Male Height: 67 in * Age: 51 yrs Ethnicity: CA Weight: 181 lb * Ordering Physician: Laura Silva * Referring Physician: No Doctor, Assigned * Performed By: Gisell Baltazar RDCS * * Reason For Study: with elevated troponin * BSA: 1.9 m2 * -- Conclusions -- * Left ventricular systolic function is normal. * No regional wall motion abnormalities noted. * Ejection Fraction = 60-65%. * There is borderline concentric left ventricular hypertrophy. * Grade I diastolic dysfunction, (abnormal relaxation pattern). * No obvious valvular pathology. Procedure Details * A complete two-dimensional transthoracic echocardiogram was performed (2D, M-mode, Doppler and color flow Doppler). * A contrast injection of Definity was performed to improve assessment of LV function. * Contrast was injected into an intravenous site in the right arm. * One vial of Definity ultrasound contrast was diluted in normal saline to a total volume of 10 ml. A total of '2' ml of solution was administered during imaging. * Lot # [id number] of Definity utilized for procedure. * Expiration date may 09. * The attending nurse who injected the contrast agent was Marce Lopez RN. * The study was technically limited. * The study was technically difficult. * There were technical limitations due to patient'sinability to cooperate Left Ventricle * The left ventricle is normal in size. * There is borderline concentric left ventricular hypertrophy. * Ejection Fraction = 60-65%. * Left ventricular systolic function is normal. * No regional wall motion abnormalities noted. Right Ventricle * The right ventricle is not well visualized. * The right ventricular systolic function is normal as assessed by tricuspid annular plane systolic excursion (TAPSE) (normal >1.5 cm). Atria * The left atrium is mildly dilated. * The right atrium is mildly dilated. * There is no evidence of atrial septal defect, but resolution does not allow assessment for a patent foramen ovale. Mitral Valve * The mitral valve is grossly normal. * There is no mitral valve stenosis. * Significant mitral regurgitation is absent. Tricuspid Valve * The tricuspid valve is not well visualized, but is grossly normal. * Tricuspid stenosis is absent. * Significant tricuspid regurgitation is absent. Aortic Valve * The aortic valve is not well visualized. * The aortic valve opens well. * No hemodynamically significant valvular aortic stenosis. * There is no significant aortic regurgitation. Pulmonic Valve * The pulmonary valve is not well seen, but the Doppler examination is normal without significant regurgitation or stenosis. Great Vessels * The aortic root is normal size. * The pulmonary is not well visualized. Pericardium/Pleural * There is no pericardial effusion. Great Vessels * Dilated inferior vena cava with reduced collapsability with sniff indicates an elevated right atrial pressure of 15 mmHg Left Ventricular Diastolic Function * Grade I diastolic dysfunction, (abnormal relaxation pattern). MMode 2D Measurements and Calculations IVSd 0.77 cm LVIDd 5.2 cm LVIDs 3.6 cm LVPWd 1.1 cm IVS/LVPW 0.72 FS 32.1 % EDV(Teich) 131.6 ml ESV(Teich) 52.9 ml EF(Teich) 59.8 % EDV(cubed) 143.6 ml ESV(cubed) 45.0 ml EF(cubed) 68.7 % LV mass(C)d 175.7 grams LV mass(C)dI 90.7 grams/m\S\2 SV(Teich) 78.7 ml SI(Teich) 40.6 ml/m\S\2 SV(cubed) 98.6 ml SI(cubed) 50.9 ml/m\S\2 ACS 1.2 cm asc Aorta Diam 2.8 cm LVAd ap4 28.0 cm\S\2 LVLd ap4 7.2 cm EDV(MOD-sp4) 92.2 ml EDV(sp4-el) 92.7 ml LVAs ap4 17.1 cm\S\2 LVLs ap4 6.6 cm ESV(MOD-sp4) 36.9 ml ESV(sp4-el) 37.7 ml EF(MOD-sp4) 60.0 % EF(sp4-el) 59.3 % LVAd ap2 35.6 cm\S\2 LVLd ap2 8.0 cm EDV(MOD-sp2) 127.4 ml EDV(sp2-el) 133.9 ml LVAs ap2 19.2 cm\S\2 LVLs ap2 6.7 cm ESV(MOD-sp2) 47.6 ml ESV(sp2-el) 47.1 ml EF(MOD-sp2) 62.7 % EF(sp2-el) 64.8 % LVLd %diff 10.5 % EDV(MOD-bp) 115.7 ml LVLs %diff 0.72 % ESV(MOD-bp) 42.3 ml EF(MOD-bp) 63.5 % SV(MOD-sp4) 55.3 ml SI(MOD-sp4) 28.6 ml/m\S\2 SV(MOD-sp2) 79.9 ml SI(MOD-sp2) 41.2 ml/m\S\2 SV(MOD-bp) 73.4 ml SI(MOD-bp) 37.9 ml/m\S\2 SV(sp4-el) 55.0 ml SI(sp4-el) 28.4 ml/m\S\2 SV(sp2-el) 86.8 ml SI(sp2-el) 44.8 ml/m\S\2 Doppler Measurements and Calculations MV E max charly 143.3 cm/sec MV A max charly 142.8 cm/sec MV E/A 1.0 MV dec time 0.22 sec Ao V2 max 122.6 cm/sec Ao max PG 6.0 mmHg Ao max PG (full) 3.1 mmHg LV V1 max PG 2.9 mmHg LV V1 max 85.3 cm/sec PA V2 max 81.4 cm/sec PA max PG 2.7 mmHg PA acc slope 503.7 cm/sec\S\2 PA acc time 0.11 sec TR max charly 255.2 cm/sec PA pr(Accel) 28.3 mmHg
[2017-04-30] MEDS ORDERED: HEPARIN IV LOW DOSE NO BOLUS SCH (15:55)
[2017-04-30 16:30] LABS: INR 1.2 (0.9-1.1); PTT PATIENT 35.6 SECONDS (21.0-31.0)
[2017-04-30 16:42] LABS: HEMATOCRIT 36.2 % (42-52); MEAN CORPUSCULAR HEMOGLOBIN 34.5 pg (25-34); MEAN CORPUSCULAR HGB CONC 33.1 g/dl (32-36); MEAN PLATELET VOLUME 10.2 fL (7.4-10.4); PLATELET COUNT 211 K/uL (130-400); RED CELL DISTRIBUTION WIDTH CV 14.6 % (11.5-14.5); RED CELL DISTRIBUTION WIDTH SD 55.4 fL (36.4-46.3); WHITE BLOOD COUNT 8.48 K/uL (4.8-10.8)
[2017-04-30 16:59] LABS: CREATININE 8.62 mg/dl (0.60-1.40); PHOSPHORUS 2.9 mg/dl (2.5-4.9); POTASSIUM 3.9 mmol/L (3.5-5.1)
[2017-04-30] MEDS: HEPARIN 25,000 UNIT/500ML D5W 500 ML IV PRN ×2 (17:12→23:58)
[2017-04-30] MEDS: METHYLPREDNISOLONE IV 20 MG in SYRINGE 0 ML IV SCH ×2 (17:15→21:14)
[2017-04-30 21:44] LABS: CALCIUM 9.6 mg/dl (8.5-10.1); CREATININE 4.25 mg/dl (0.60-1.40); PHOSPHORUS 2.8 mg/dl (2.5-4.9)
[2017-04-30 23:36] LABS: PTT PATIENT 38.1 SECONDS (21.0-31.0)
[2017-04-30] MEDS ORDERED: HEPARIN IV BOLUS 4,500 UNIT in SYRINGE 0 ML IV ONE (23:45)
[2017-04-30 23:56] LABS: CALCIUM 9.3 mg/dl (8.5-10.1); CREATININE 4.58 mg/dl (0.60-1.40); PHOSPHORUS 3.2 mg/dl (2.5-4.9); POTASSIUM 3.9 mmol/L (3.5-5.1)
[2017-05-01] VITALS (13 sets, daily range): BP systolic 131–151; BP diastolic 75–90; PULSE 92–109; TEMP 36.7–37.2; O2SAT 93–100
[2017-05-01] MEDS ORDERED: D5W AND NSS 1,000 ML IV SCH (00:45)
[2017-05-01] MEDS: IMIPENEM-CILASTATIN 200 MG in DEXTROSE 5% 100ML 100 ML IV SCH ×4 (02:45→19:58)
[2017-05-01 04:17] LABS: HEMATOCRIT 38.7 % (42-52); HEMOGLOBIN 12.9 g/dL (14.0-18.0); MEAN CELL VOLUME 104.6 fL (80-100); MEAN CORPUSCULAR HEMOGLOBIN 34.9 pg (25-34); MEAN CORPUSCULAR HGB CONC 33.3 g/dl (32-36); MEAN PLATELET VOLUME 10.1 fL (7.4-10.4); PLATELET COUNT 246 K/uL (130-400); RED CELL DISTRIBUTION WIDTH CV 14.6 % (11.5-14.5); RED CELL DISTRIBUTION WIDTH SD 55.8 fL (36.4-46.3)
[2017-05-01 04:24] LABS: CALCIUM 9.8 mg/dl (8.5-10.1); CREATININE 5.26 mg/dl (0.60-1.40); PHOSPHORUS 4.2 mg/dl (2.5-4.9); POTASSIUM 4.3 mmol/L (3.5-5.1)
[2017-05-01 04:41] LABS: BASO % 0.1 %; BASO ABS # 0.02 K/uL (0-0.2); LYMPH % 2.8 %; LYMPH ABS # 0.74 K/uL (1.2-3.4); MONO % 2.9 %; MONO ABS # 0.77 K/uL (0.11-0.59); NEUT % 93.8 %; NEUT ABS # 24.97 K/uL (1.4-6.5)
[2017-05-01 07:24] LABS: PTT PATIENT 38.8 SECONDS (21.0-31.0)
[2017-05-01] MEDS: ALBUT/IPRATROP 3MG/0.5MG NEB 3 ML VIAL INH SCH ×4 (07:27→19:11)
[2017-05-01] MEDS: INCRUSE ELLIPTA~ORDER AWAITING ACTION SCH ×2 (07:45→15:04)
[2017-05-01] MEDS: INSULIN ASPART 100 UNITS/ML 3 ML PEN SC SCH ×4 (07:45→21:00)
[2017-05-01] MEDS: SENSIPAR~ORDER AWAITING ACTION SCH ×2 (07:45→15:04)
[2017-05-01 08:01] LABS: CALCIUM 9.9 mg/dl (8.5-10.1); CREATININE 5.46 mg/dl (0.60-1.40); PHOSPHORUS 4.7 mg/dl (2.5-4.9); POTASSIUM 4.2 mmol/L (3.5-5.1)
--- NOTE | 2017-05-01 09:12 | Progress Note ---
Progress Note Date of Service May 01, 2017. Progress Note ID Consult Dictated #[id number] A/P: 1. Pna -Continue abx, would check sputum culture -Will follow, thank you
--- NOTE | 2017-05-01 09:58 | Nephrology Progress Note ---
Nephrology Progress Note Date of Service May 01, 2017. Chief Complaint ESRD Subjective Mr. Clark was seen and examined in the ICU this morning. He was admitted with septic shock yesterday and required volume resuscitation. Initial Troponin was elevated due to relative hypotension. ECG was negative for acute ischemic changes and echocardiogram did not reveal WMA. Dialysis was provided for correction of electrolyte and acid/base balance. Mr. Clark dialyzed for 4 hours yesterday with no UF. He remained hemodynamically stable throughout treatment w/ SBP 120 - 140 mmHG. There were no complications. This morning Mr. Clark is alert but oriented to self only. He has a recurrent moist cough. He denies chest discomfort. Review of Systems Cardiovascular: No chest pain A complete review of systems was performed. Pertinent positives are noted above. All other systems are negative. Vital Signs Last 8 Hrs Date Time Temp Pulse Resp B/P (MAP) Pulse Ox O2 Delivery O2 Flow Rate FiO2 05/01/17 08:00 Room Air 05/01/17 07:57 98 98 35 05/01/17 07:37 36.8 93 16 151/90 (110) 93 BiPAP 05/01/17 07:28 98 14 98 BiPAP/CPAP 35 05/01/17 04:00 37.0 92 20 143/84 (103) 97 BiPAP 05/01/17 04:00 BiPAP 35 05/01/17 01:56 94 99 35 Last Recorded Weight Weight (Kilograms): 83.000 Physical Exam General Appearance: + mild distress (appears acutely ill with recurrent moist cough) Eyes: PERRL Neck: no adenopathy Respiratory/Chest: + rhonchi Cardiovascular: + tachycardia Abdomen/GI: normal bowel sounds, non tender, soft Extremities/Musculoskelatal: no pedal edema, + pertinent finding (AVF + bruit) Neurologic/Psych: alert (oriented to self only) Family History FH: heart disease Negative for CKD / ESRD Social History Smoking Status: Current every day smoker Alcohol Use: unsure Drug Use: none Marital Status: Housing Status: lives with family Occupation: disabled . Medically disabled. Former smoker (Quit 2013) Laboratory Results Past 24 Hours 04/30/17 16:09 05/01/17 03:44 Red Blood Count 3.70, Mean Corpuscular Volume 104.6, Mean Corpuscular Hemoglobin 34.9, Mean Corpuscular Hemoglobin Concent 33.3, Mean Platelet Volume 10.1, Neutrophils (%) (Auto) 93.8, Lymphocytes (%) (Auto) 2.8, Monocytes (%) ( Auto) 2.9, Eosinophils (%) (Auto) 0.0, Basophils (%) (Auto) 0.1, Neutrophils # ( Auto) 24.97, Lymphocytes # (Auto) 0.74, Monocytes # (Auto) 0.77, Eosinophils # ( Auto) 0.00, Basophils # (Auto) 0.02 04/30/17 14:48 04/30/17 16:09 04/30/17 21:16 04/30/17 23:15 05/01/17 03:44 05/01/17 07:04 Test 04/30/17 10:12 04/30/17 12:27 04/30/17 12:33 04/30/17 13:13 Bedside Glucose 392 mg/dl (70-99) 339 mg/dl (70-99) Venous Blood pH 7.38 (7.36-7.41) Blood Gas Sample Site R Brachial Bedside Blood Gas pH (LAB) 7.44 (7.35-7.45) Bedside Blood Gas pCO2 (LAB) 35 mmHg (35-46) Bedside Blood Gas pO2 (LAB) 56 mmHg (80-95) Bedside Blood Gas HCO3 (LAB) 24 meq/L (19-24) Bedside Blood Gas Total CO2 25 mEq/l (24-31) Bedside Blood Gas Base Excess (LAB) 0.0 meq/L (-9-1.8) Bedside Blood Gas O2 Saturation 91.0 % (90-95) Carl Test NA Oxygen Delivery Device Room Air Test 04/30/17 13:40 04/30/17 14:33 04/30/17 14:48 04/30/17 15:30 Bedside Glucose 413 mg/dl (70-99) 423 mg/dl (70-99) 400 mg/dl (70-99) Anion Gap 16.0 mmol/L (3-11) Est Creatinine Clear Calc Drug Dose 9.7 ml/min Estimated GFR () 6.8 Estimated GFR (Non- 5.9 BUN/Creatinine Ratio 6.1 (10-20) Calcium Level 9.2 mg/dl (8.5-10.1) Phosphorus Level 3.7 mg/dl (2.5-4.9) Magnesium Level 2.5 mg/dl (1.8-2.4) Troponin I 18.200 ng/ml (0-0.045) Beta-Hydroxybutyric Acid 16.41 mg/dL (0.2-2.81) Test 04/30/17 16:09 04/30/17 16:31 04/30/17 17:30 04/30/17 18:39 Red Blood Count 3.48 M/uL (4.7-6.1) Mean Corpuscular Volume 104.0 fL (80-100) Mean Corpuscular Hemoglobin 34.5 pg (25-34) Mean Corpuscular Hemoglobin Concent 33.1 g/dl (32-36) RDW Standard Deviation 55.4 fL (36.4-46.3) RDW Coefficient of Variation 14.6 % (11.5-14.5) Mean Platelet Volume 10.2 fL (7.4-10.4) Prothrombin Time 12.2 SECONDS (9.0-12.0) Prothromb Time International Ratio 1.2 (0.9-1.1) Activated Partial Thromboplast Time 35.6 SECONDS (21.0-31.0) Partial Thromboplastin Ratio 1.4 Venous Blood pH 7.37 (7.36-7.41) Anion Gap 11.0 mmol/L (3-11) Est Creatinine Clear Calc Drug Dose 10.4 ml/min Estimated GFR () 7.4 Estimated GFR (Non- 6.4 BUN/Creatinine Ratio 6.4 (10-20) Calcium Level 9.0 mg/dl (8.5-10.1) Phosphorus Level 2.9 mg/dl (2.5-4.9) Magnesium Level 2.5 mg/dl (1.8-2.4) Beta-Hydroxybutyric Acid 4.51 mg/dL (0.2-2.81) Bedside Glucose 364 mg/dl (70-99) 205 mg/dl (70-99) 189 mg/dl (70-99) Test 04/30/17 19:29 04/30/17 19:37 04/30/17 20:30 04/30/17 21:16 Bedside Glucose 161 mg/dl (70-99) 171 mg/dl (70-99) 186 mg/dl (70-99) Venous Blood pH 7.39 (7.36-7.41) Anion Gap 8.0 mmol/L (3-11) Est Creatinine Clear Calc Drug Dose 21.1 ml/min Estimated GFR () 17.5 Estimated GFR (Non- 15.1 BUN/Creatinine Ratio 4.7 (10-20) Calcium Level 9.6 mg/dl (8.5-10.1) Phosphorus Level 2.8 mg/dl (2.5-4.9) Magnesium Level 2.3 mg/dl (1.8-2.4) Test 04/30/17 22:33 04/30/17 23:15 05/01/17 00:29 05/01/17 02:28 Bedside Glucose 193 mg/dl (70-99) 239 mg/dl (70-99) 203 mg/dl (70-99) Activated Partial Thromboplast Time 38.1 SECONDS (21.0-31.0) Partial Thromboplastin Ratio 1.5 Venous Blood pH 7.38 (7.36-7.41) Anion Gap 11.0 mmol/L (3-11) Est Creatinine Clear Calc Drug Dose 19.6 ml/min Estimated GFR () 16.0 Estimated GFR (Non- 13.8 BUN/Creatinine Ratio 4.5 (10-20) Calcium Level 9.3 mg/dl (8.5-10.1) Phosphorus Level 3.2 mg/dl (2.5-4.9) Magnesium Level 2.2 mg/dl (1.8-2.4) Troponin I 22.200 ng/ml (0-0.045) Test 05/01/17 03:44 05/01/17 04:33 05/01/17 07:04 White Blood Count 26.60 K/uL (4.8-10.8) Red Blood Count 3.70 M/uL (4.7-6.1) Hemoglobin 12.9 g/dL (14.0-18.0) Hematocrit 38.7 % (42-52) Mean Corpuscular Volume 104.6 fL (80-100) Mean Corpuscular Hemoglobin 34.9 pg (25-34) Mean Corpuscular Hemoglobin Concent 33.3 g/dl (32-36) Platelet Count 246 K/uL (130-400) Mean Platelet Volume 10.1 fL (7.4-10.4) Neutrophils (%) (Auto) 93.8 % Lymphocytes (%) (Auto) 2.8 % Monocytes (%) (Auto) 2.9 % Eosinophils (%) (Auto) 0.0 % Basophils (%) (Auto) 0.1 % Neutrophils # (Auto) 24.97 K/uL (1.4-6.5) Lymphocytes # (Auto) 0.74 K/uL (1.2-3.4) Monocytes # (Auto) 0.77 K/uL (0.11-0.59) Eosinophils # (Auto) 0.00 K/uL (0-0.5) Basophils # (Auto) 0.02 K/uL (0-0.2) RDW Standard Deviation 55.8 fL (36.4-46.3) RDW Coefficient of Variation 14.6 % (11.5-14.5) Immature Granulocyte % (Auto) 0.4 % Immature Granulocyte # (Auto) 0.10 K/uL (0.00-0.02) Venous Blood pH 7.36 (7.36-7.41) 7.38 (7.36-7.41) Anion Gap 9.0 mmol/L (3-11) 10.0 mmol/L (3-11) Est Creatinine Clear Calc Drug Dose 17.1 ml/min 16.5 ml/min Estimated GFR () 13.5 12.9 Estimated GFR (Non- 11.7 11.1 BUN/Creatinine Ratio 5.2 (10-20) 5.2 (10-20) Calcium Level 9.8 mg/dl (8.5-10.1) 9.9 mg/dl (8.5-10.1) Phosphorus Level 4.2 mg/dl (2.5-4.9) 4.7 mg/dl (2.5-4.9) Magnesium Level 2.6 mg/dl (1.8-2.4) 2.4 mg/dl (1.8-2.4) Troponin I 18.100 ng/ml (0-0.045) Bedside Glucose 206 mg/dl (70-99) Activated Partial Thromboplast Time 38.8 SECONDS (21.0-31.0) Partial Thromboplastin Ratio 1.5 Allergies Coded Allergies: Codeine (Verified Allergy, Intermediate, NAUSEA AND VOMITING, 04/18/17) QUESTIONABLE ALLERGY, STILL QUESTIONABLE BUT MD Villafuerte/David SHONDA WITH COD 02/20/17 Tigecycline (Verified Allergy, Mild, ?RASH, 04/18/17) Clindamycin (Verified Allergy, Unknown, Unknown, 04/29/17) Penicillins (Verified Allergy, Unknown, PT HAS HAD MEFOXIN W/OUT A PROBLEM , 04/18/17) HAD MEFOXIN W/O PROBLEM Ciprofloxacin (Verified Adverse Reaction, Intermediate, nausea,vomiting, generalized weakness, 04/18/17) Morphine (Verified Adverse Reaction, Intermediate, TREMBLING,NAUSEA AND VOMITING, 04/18/17) Opioid Analgesics (Verified Adverse Reaction, Intermediate, "ALL RX PAIN MEDS CAUSE SEVERE NAUSEA", 04/18/17) Levofloxacin (Verified Adverse Reaction, Mild, Cipro/Levaquin (IV & po) = N & V, 04/18/17) Oxycodone (Verified Adverse Reaction, Unknown, N/V/D, 04/18/17) SPOKE WITH PATIENT ON 07/29/15, DOES NOT REMEMBER ANY DIFFICULTY BREATHING JUST HIT HIM HARD. Medications Current Inpatient Medications Medications (Trade) Dose Ordered Sig/Etta Route Start Time Stop Time Status Last Admin Dose Admin Al Hydrox/Mg Hydrox/Simethicone (Maalox Max Susp) 15 ml Q4H PRN PO 04/29/17 21:30 05/29/17 21:29 Magnesium Hydroxide (Milk Of Magnesia Susp) 30 ml Q12H PRN PO 04/29/17 21:30 05/29/17 21:29 Ondansetron HCl (Zofran Inj) 4 mg Q6H PRN IV 04/29/17 21:30 05/29/17 21:29 Polyethylene (Miralax Powder Packet) 17 gm DAILY PRN PO 04/29/17 21:30 05/29/17 21:29 Albuterol/ Ipratropium (Duoneb) 3 ml QIDR INH 04/30/17 08:00 05/30/17 07:59 05/01/17 07:27 3 ML Glucose (Glucose 40% Gel) 15-30 GRAMS 15 GRAMS... UD PRN PO 04/29/17 22:00 05/29/17 21:59 Glucose (Glucose Chew Tab) 4-8 Tablets 4 Tabl... UD PRN PO 04/29/17 22:00 05/29/17 21:59 Dextrose (Dextrose 50% 50ML Syringe) 25-50ML OF 50% DW IV FOR... UD PRN IV 04/29/17 22:00 05/29/17 21:59 Glucagon (Glucagon Inj) 1 mg UD PRN SQ 04/29/17 22:00 05/29/17 21:59 Amlodipine Besylate (Norvasc Tab) 2.5 mg DAILY PO 04/30/17 09:00 05/30/17 08:59 Future Hold Atorvastatin Calcium (Lipitor Tab) 40 mg HS PO 04/30/17 21:00 05/30/17 20:59 Future Hold Bupropion HCl (Wellbutrin-Sr Tab) 200 mg QPM PO 04/30/17 21:00 05/30/17 20:59 Future Hold Clopidogrel Bisulfate (plAVix TAB) 75 mg Q2D@0900 PO 04/30/17 09:00 05/30/17 08:59 Future Hold Furosemide (Lasix Tab) 80 mg BID17 PO 04/30/17 09:00 05/30/17 08:59 Future Hold Gabapentin (Neurontin Cap) 100 mg BID PO 04/30/17 09:00 05/30/17 08:59 Future Hold Levothyroxine Sodium (Synthroid Tab) 112 mcg DAILYBB PO 04/30/17 06:00 05/30/17 05:59 Future Hold Metoprolol Tartrate (Lopressor Tab) 50 mg BID PO 04/30/17 09:00 05/30/17 08:59 Future Hold Miscellaneous Information (Order Awaiting Action) 1 ea QS N/A 04/30/17 00:00 05/30/17 00:00 Miscellaneous Information (Order Awaiting Action) 1 ea QS N/A 04/30/17 00:00 05/30/17 00:00 Sevelamer HCl (Renagel Tab) 1,600 mg TID PO 04/30/17 09:00 05/30/17 08:59 Future Hold Miscellaneous Information (Order Awaiting Action) 1 ea QS N/A 04/30/17 00:00 05/30/17 00:00 Imipenem/ Cilastatin Sodium 200 mg/Dextrose 108 ml @ 108 mls/hr Q6H IV 04/30/17 08:00 05/07/17 07:59 05/01/17 07:44 108 MLS/HR Imipenem/ Cilastatin Sodium (Consult) 1 ea UD PRN N/A 04/30/17 09:00 05/30/17 08:59 Linezolid 600 mg/ Prmx 300 ml @ 300 mls/hr Q12H IV 04/30/17 11:00 05/02/17 10:59 04/30/17 21:14 300 MLS/HR Insulin Aspart (novoLOG ASPART) SLIDING SCALE PCHS SC 04/30/17 12:00 05/30/17 11:59 Methylprednisolone Sodium Succinate 20 mg/Syringe 0.32 ml @ 1.5 mls/min TID IV 04/30/17 14:00 05/30/17 13:59 04/30/17 21:14 1.5 MLS/MIN Miscellaneous Information (Consult Glycemic Management Pharmacy) 1 ea UD PRN N/A 04/30/17 10:45 05/30/17 10:44 Insulin Human Regular 250 units/ Sodium Chloride 252.5 ml @ 0 mls/hr Q24H IV 04/30/17 11:00 05/30/17 10:59 04/30/17 11:20 2 MLS/HR Ioversol (Optiray 320) 100 ml UD PRN IV 04/30/17 13:45 05/04/17 13:44 Heparin Sodium/ Dextrose 500 ml @ 20 mls/hr Q24H PRN IV 04/30/17 16:15 05/30/17 16:14 04/30/17 23:58 20 MLS/HR Dextrose/Sodium Chloride 1,000 ml @ 30 mls/hr Q24H IV 05/01/17 00:45 05/31/17 00:44 Impression (1) Altered level of consciousness (2) Sepsis (3) Hypotension arterial (4) Tracheomalacia (5) End-stage renal disease on hemodialysis Patient admitted to the hospital w/ presumed sepsis syndrome. He has a history of severe tracheal malacia with chronic bronchiectasis. He is now on broad spectrum antibiotics. Blood cultures are pending. CXR with mild congestive changes and bibasilar infiltrates PMH - ESRD due to diabetic nephropathy on IHD since 12/25 (HD TTS at [facility] - 4 hrs 2K 2Ca F180NR Qb 450 cc/min HCO3 34 EDW 83 kg), IDDM, HTN , PVD s/p R femoral artery bypass, anemia, hypothyroidism, hypercholesterolemia , bipolar disorder, COPD w/ severe tracheomalacia and chronic bronchiectasis ( quit smoking ~ 2013). Recommendations END STAGE RENAL DISEASE: -- Medical care discussed w/ primary service this am. HD provided yesterday without complication. Volume status and electrolyte balance are acceptable at this time. No acute indication for HD today. Patient will be reassessed in am. -- Monitor qAM PRP HYPERTENSION: -- Blood pressure has improved following IV hydration. SBP now 120- 140 mm HG. No acute indication for pressor therapy at this time. ANEMIA: -- Hgb is acceptable. No acute indication for GINO at this time. Will monitor. ID: -- Agree w/ broad spectrum antibiotics. Blood cultures are NGTD. -- Await further input from ID and Pulmonology
[2017-05-01] MEDS ORDERED: HEPARIN IV BOLUS 4,500 UNIT in SYRINGE 0 ML IV ONE (10:00)
[2017-05-01] MEDS: METHYLPREDNISOLONE IV 20 MG in SYRINGE 0 ML IV SCH ×3 (10:22→20:59)
[2017-05-01] MEDS: HEPARIN 25,000 UNIT/500ML D5W 500 ML IV PRN (10:26)
--- NOTE | 2017-05-01 10:55 | Family Medicine Progress Note ---
Progress Note Date of Service May 01, 2017. Subjective Pt evaluation today including: physical exam, chart review, lab review, review of studies, conversation w/ digital media sales consultant Patient is still nonverbal and responds to pain He apparently would awaken to moan and would move throughout the night no events overnight unable to obtain ROS as patient is nonverbal Medications Medications Administered Medications (Trade) Dose Ordered Sig/Etta Route Start Time Stop Time Status Last Admin Dose Admin Sodium Chloride 500 ml @ 999 mls/hr Q31M ONCE IV 04/29/17 18:35 04/29/17 19:05 DC 04/29/17 19:40 999 MLS/HR Cefepime HCl 2000 mg/Dextrose 112.5 ml @ 225 mls/hr NOW ONCE IV 04/29/17 18:45 04/29/17 19:14 DC 04/29/17 19:40 225 MLS/HR Acetaminophen (Tylenol Supp) 975 mg NOW STAT KS 04/29/17 18:35 04/29/17 18:41 DC 04/29/17 19:09 975 MG Albuterol/ Ipratropium (Duoneb) 3 ml NOW STAT INH 04/29/17 18:39 04/29/17 18:41 DC 04/29/17 19:03 3 ML Aztreonam 2000 mg/ Dextrose 110 ml @ 100 mls/hr NOW STAT IV 04/29/17 19:40 04/29/17 20:45 DC 04/29/17 20:03 100 MLS/HR Heparin Sodium (Porcine) (Heparin Sq 5000 Unit/0.5ml) 5,000 unit Q12 SQ 04/30/17 09:00 04/30/17 15:57 DC 04/30/17 08:25 5,000 UNIT Insulin Aspart (novoLOG ASPART) SLIDING SCALE G... ACHS SC 04/30/17 06:45 04/30/17 11:00 DC 04/30/17 08:16 10 UNITS Albuterol/ Ipratropium (Duoneb) 3 ml QIDR INH 04/30/17 08:00 05/30/17 07:59 05/01/17 11:08 3 ML Vancomycin HCl (Vancomycin 1gm/ 270ml Nss) 1 gm STK-MED ONCE .ROUTE 04/29/17 21:42 04/29/17 21:43 DC 04/29/17 21:44 1 GM Vancomycin HCl 500 mg/Sodium Chloride 260 ml @ 125 mls/hr TODAY@0000 IV 04/30/17 00:00 04/30/17 02:05 DC 04/30/17 00:00 125 MLS/HR Imipenem/ Cilastatin Sodium 200 mg/Dextrose 108 ml @ 108 mls/hr Q6H IV 04/30/17 08:00 05/07/17 07:59 05/01/17 07:44 108 MLS/HR Methylprednisolone Sodium Succinate 60 mg/Syringe 0.96 ml @ 1.5 mls/min 0930 ONCE IV 04/30/17 09:30 04/30/17 09:31 DC 04/30/17 09:47 1.5 MLS/MIN Linezolid 600 mg/ Prmx 300 ml @ 300 mls/hr Q12H IV 04/30/17 11:00 05/02/17 10:59 04/30/17 21:14 300 MLS/HR Methylprednisolone Sodium Succinate 20 mg/Syringe 0.32 ml @ 1.5 mls/min TID IV 04/30/17 14:00 05/30/17 13:59 05/01/17 10:22 1.5 MLS/MIN Insulin Human Regular 250 units/ Sodium Chloride 252.5 ml @ 0 mls/hr Q24H IV 04/30/17 11:00 05/30/17 10:59 04/30/17 11:20 2 MLS/HR Insulin Human Regular 2 unit/ Syringe 2 ml @ 1 mls/min TODAY@1100 IV 04/30/17 11:00 04/30/17 11:01 DC 04/30/17 11:21 1 MLS/MIN Miscellaneous Information (Pending D5nss Ivf) 1 ea Q2H N/A 04/30/17 12:00 05/01/17 07:25 DC 05/01/17 00:30 1 EA Perflutren Lipid Microsphere (Definity) 2 ml ONE ONCE IV 04/30/17 11:23 04/30/17 11:24 DC 04/30/17 11:23 2 ML Heparin Sodium/ Dextrose 500 ml @ 23 mls/hr [id number] PRN IV 04/30/17 16:15 05/30/17 16:14 05/01/17 10:26 23 MLS/HR Heparin Sodium (Porcine) 4500 unit/Syringe 4.5 ml @ 10 mls/min NOW ONCE IV 04/30/17 23:45 04/30/17 23:50 DC 04/30/17 23:57 10 MLS/MIN Heparin Sodium (Porcine) 4500 unit/Syringe 4.5 ml @ 10 mls/min NOW ONCE IV 05/01/17 10:00 05/01/17 10:01 DC 05/01/17 10:26 10 MLS/MIN Objective Vital Signs Date Time Temp Pulse Resp B/P (MAP) Pulse Ox O2 Delivery O2 Flow Rate FiO2 05/01/17 11:10 100 16 100 Nasal Cannula 2.0 05/01/17 08:00 Room Air 05/01/17 07:57 98 98 35 05/01/17 07:37 36.8 93 16 151/90 (110) 93 BiPAP 05/01/17 07:28 98 14 98 BiPAP/CPAP 35 05/01/17 04:00 37.0 92 20 143/84 (103) 97 BiPAP 05/01/17 04:00 BiPAP 35 05/01/17 01:56 94 99 35 05/01/17 00:00 BiPAP 35 04/30/17 23:45 36.8 89 20 131/76 (94) 97 BiPAP 04/30/17 21:49 92 97 35 04/30/17 20:42 36.7 97 117/68 (84) 04/30/17 20:00 BiPAP 35 04/30/17 19:55 37.1 97 20 123/69 (87) 97 BiPAP 04/30/17 19:45 95 112/67 04/30/17 19:30 99 123/69 04/30/17 19:15 99 117/67 04/30/17 19:00 94 121/68 04/30/17 18:45 96 113/66 04/30/17 18:30 97 107/59 04/30/17 18:15 93 98 35 04/30/17 18:15 95 108/63 04/30/17 18:14 93 14 98 BiPAP/CPAP 35 04/30/17 18:00 93 116/64 04/30/17 17:45 85 114/68 04/30/17 17:30 95 118/69 04/30/17 17:15 91 124/71 2/10/18 17:00 88 116/65 04/30/17 16:45 93 105/64 04/30/17 16:30 91 129/73 04/30/17 16:15 92 127/73 04/30/17 16:03 95 137/72 04/30/17 16:00 36.6 98 119/82 (94) 04/30/17 16:00 97 BiPAP 35 04/30/17 15:42 37.1 94 20 106/65 (79) 96 BiPAP 04/30/17 15:16 91 97 35 04/30/17 15:16 91 14 97 BiPAP/CPAP 35 04/30/17 13:35 98 14 99 BiPAP/CPAP 35 04/30/17 13:30 98 99 35 04/30/17 12:00 96 BiPAP 35 04/30/17 11:59 36.5 95 14 103/62 (76) 96 Room Air Physical Exam General Appearance: no apparent distress Eyes: PERRL, sclerae normal, + pertinent finding ENT: + pertinent finding (patient would not allow to open mouth to assess) Neck: supple, no JVD Respiratory/Chest: + pertinent finding (coarse breath sounds, expiratory wheezing and crackles throughout ) Cardiovascular: + tachycardia, + systolic murmur (3/6 whistling murmur) Abdomen: normal bowel sounds, soft Extremities: + pertinent finding (PAD changes and amputations noted to bilat LE below the knee) Neurologic/Psychiatric: + pertinent finding (responds to pain) Skin: normal color, warm/dry, no rash Lymphatic: no adenopathy Laboratory Results Results Past 24 Hours Test 04/30/17 12:27 04/30/17 12:33 04/30/17 13:13 04/30/17 13:40 Range/Units Venous Blood pH 7.38 7.36-7.41 Bedside Glucose 339 413 70-99 mg/dl Blood Gas Sample Site R Brachial Bedside Blood Gas pH (LAB) 7.44 7.35-7.45 Bedside Blood Gas pCO2 (LAB) 35 35-46 mmHg Bedside Blood Gas pO2 (LAB) 56 80-95 mmHg Bedside Blood Gas HCO3 (LAB) 24 19-24 meq/L Bedside Blood Gas Total CO2 25 24-31 mEq/l Bedside Blood Gas Base Excess (LAB) 0.0 -9-1.8 meq/L Bedside Blood Gas O2 Saturation 91.0 90-95 % Carl Test NA Oxygen Delivery Device Room Air Test 04/30/17 14:33 04/30/17 14:48 04/30/17 15:30 04/30/17 16:09 Range/Units Bedside Glucose 423 400 70-99 mg/dl Sodium Level 129 128 136-145 mmol/L Potassium Level 4.2 3.9 3.5-5.1 mmol/L Chloride Level 90 92 98-107 mmol/L Carbon Dioxide Level 23 25 21-32 mmol/L Anion Gap 16.0 11.0 3-11 mmol/L Blood Urea Nitrogen 56 55 7-18 mg/dl Creatinine 9.23 8.62 0.60-1.40 mg/dl Est Creatinine Clear Calc Drug Dose 9.7 10.4 ml/min Estimated GFR () 6.8 7.4 Estimated GFR (Non- 5.9 6.4 BUN/Creatinine Ratio 6.1 6.4 10-20 Random Glucose 394 384 70-99 mg/dl Calcium Level 9.2 9.0 8.5-10.1 mg/dl Phosphorus Level 3.7 2.9 2.5-4.9 mg/dl Magnesium Level 2.5 2.5 1.8-2.4 mg/dl Troponin I 18.200 0-0.045 ng/ml Beta-Hydroxybutyric Acid 16.41 4.51 0.2-2.81 mg/dL White Blood Count 8.48 4.8-10.8 K/uL Red Blood Count 3.48 4.7-6.1 M/uL Hemoglobin 12.0 14.0-18.0 g/dL Hematocrit 36.2 42-52 % Mean Corpuscular Volume 104.0 80-100 fL Mean Corpuscular Hemoglobin 34.5 25-34 pg Mean Corpuscular Hemoglobin Concent 33.1 32-36 g/dl RDW Standard Deviation 55.4 36.4-46.3 fL RDW Coefficient of Variation 14.6 11.5-14.5 % Platelet Count 211 130-400 K/uL Mean Platelet Volume 10.2 7.4-10.4 fL Prothrombin Time 12.2 9.0-12.0 SECONDS Prothromb Time International Ratio 1.2 0.9-1.1 Activated Partial Thromboplast Time 35.6 21.0-31.0 SECONDS Partial Thromboplastin Ratio 1.4 Venous Blood pH 7.37 7.36-7.41 Test 04/30/17 16:31 04/30/17 17:30 04/30/17 18:39 04/30/17 19:29 Range/Units Bedside Glucose 364 205 189 161 70-99 mg/dl Test 04/30/17 19:37 04/30/17 20:30 04/30/17 21:16 04/30/17 22:33 Range/Units Bedside Glucose 171 186 193 70-99 mg/dl Venous Blood pH 7.39 7.36-7.41 Sodium Level 137 136-145 mmol/L Potassium Level 4.0 3.5-5.1 mmol/L Chloride Level 103 98-107 mmol/L Carbon Dioxide Level 26 21-32 mmol/L Anion Gap 8.0 3-11 mmol/L Blood Urea Nitrogen 20 7-18 mg/dl Creatinine 4.25 0.60-1.40 mg/dl Est Creatinine Clear Calc Drug Dose 21.1 ml/min Estimated GFR () 17.5 Estimated GFR (Non- 15.1 BUN/Creatinine Ratio 4.7 10-20 Random Glucose 175 70-99 mg/dl Calcium Level 9.6 8.5-10.1 mg/dl Phosphorus Level 2.8 2.5-4.9 mg/dl Magnesium Level 2.3 1.8-2.4 mg/dl Test 04/30/17 23:15 05/01/17 00:29 05/01/17 02:28 05/01/17 03:44 Range/Units Activated Partial Thromboplast Time 38.1 21.0-31.0 SECONDS Partial Thromboplastin Ratio 1.5 Venous Blood pH 7.38 7.36 7.36-7.41 Sodium Level 136 135 136-145 mmol/L Potassium Level 3.9 4.3 3.5-5.1 mmol/L Chloride Level 102 101 98-107 mmol/L Carbon Dioxide Level 23 25 21-32 mmol/L Anion Gap 11.0 9.0 3-11 mmol/L Blood Urea Nitrogen 21 27 7-18 mg/dl Creatinine 4.58 5.26 0.60-1.40 mg/dl Est Creatinine Clear Calc Drug Dose 19.6 17.1 ml/min Estimated GFR () 16.0 13.5 Estimated GFR (Non- 13.8 11.7 BUN/Creatinine Ratio 4.5 5.2 10-20 Random Glucose 226 250 70-99 mg/dl Calcium Level 9.3 9.8 8.5-10.1 mg/dl Phosphorus Level 3.2 4.2 2.5-4.9 mg/dl Magnesium Level 2.2 2.6 1.8-2.4 mg/dl Troponin I 22.200 18.100 0-0.045 ng/ml Bedside Glucose 239 203 70-99 mg/dl White Blood Count 26.60 4.8-10.8 K/uL Red Blood Count 3.70 4.7-6.1 M/uL Hemoglobin 12.9 14.0-18.0 g/dL Hematocrit 38.7 42-52 % Mean Corpuscular Volume 104.6 80-100 fL Mean Corpuscular Hemoglobin 34.9 25-34 pg Mean Corpuscular Hemoglobin Concent 33.3 32-36 g/dl Platelet Count 246 130-400 K/uL Mean Platelet Volume 10.1 7.4-10.4 fL Neutrophils (%) (Auto) 93.8 % Lymphocytes (%) (Auto) 2.8 % Monocytes (%) (Auto) 2.9 % Eosinophils (%) (Auto) 0.0 % Basophils (%) (Auto) 0.1 % Neutrophils # (Auto) 24.97 1.4-6.5 K/uL Lymphocytes # (Auto) 0.74 1.2-3.4 K/uL Monocytes # (Auto) 0.77 0.11-0.59 K/uL Eosinophils # (Auto) 0.00 0-0.5 K/uL Basophils # (Auto) 0.02 0-0.2 K/uL RDW Standard Deviation 55.8 36.4-46.3 fL RDW Coefficient of Variation 14.6 11.5-14.5 % Immature Granulocyte % (Auto) 0.4 % Immature Granulocyte # (Auto) 0.10 0.00-0.02 K/uL Test 05/01/17 04:33 05/01/17 07:04 05/01/17 09:36 05/01/17 11:00 Range/Units Bedside Glucose 206 238 70-99 mg/dl Activated Partial Thromboplast Time 38.8 21.0-31.0 SECONDS Partial Thromboplastin Ratio 1.5 Venous Blood pH 7.38 7.36-7.41 Sodium Level 135 136-145 mmol/L Potassium Level 4.2 3.5-5.1 mmol/L Chloride Level 100 98-107 mmol/L Carbon Dioxide Level 25 21-32 mmol/L Anion Gap 10.0 3-11 mmol/L Blood Urea Nitrogen 28 7-18 mg/dl Creatinine 5.46 0.60-1.40 mg/dl Est Creatinine Clear Calc Drug Dose 16.5 ml/min Estimated GFR () 12.9 Estimated GFR (Non- 11.1 BUN/Creatinine Ratio 5.2 10-20 Random Glucose 258 70-99 mg/dl Calcium Level 9.9 8.5-10.1 mg/dl Phosphorus Level 4.7 2.5-4.9 mg/dl Magnesium Level 2.4 1.8-2.4 mg/dl Assessment and Plan 51 year old male here with a PMH of diabetes, COPD, ESRD on dialysis, hx of PE, Bipolar and hypothyroidism that presented to the ED with ALOC and changes on CXR concerning for a hospital acquired PNA/infectious bronchiectasis Sepsis most likely secondary to infectious bronchiectasis/HAP and complicated by a history of severe tracheomalacia/ chronic bronchiectasis, COPD and positive resp culture with ESBL 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 XYLOSOXIDANS in 2016 - Methylpred 20 mg q8h IV cont'd today - Due to ESBL transitioned to Primaxin and Zyvox; ID consulted - Pulmonary consult - appreciate recs - blood cultures x2 pending [facility] - sputum culture DKA in setting of acute infection and no insulin pump; DM1 on insulin pump; stable on infusion pump - insulin infusion initiated to titrate BSG and will transition when able - glycemic consult - appreciate recs - D5NSS @ 50cc/h while patient is NPO and considering DM1 Elevated troponin, possible NSTEMI ACS II in light of septic picture - trend troponin - echo - no regional wall motion abnormalities, no significant changes however the valves were not well visualized - EKG repeat was not significantly changed - monitor on tele, heparin initiated - Echo August 2016: * There is mild concentric left ventricular hypertrophy with EF 55-65% * Grade I diastolic dysfunction, (abnormal relaxation pattern). * Moderate valvular aortic stenosis. * There is mild mitral stenosis. * Inferior wall from base to mid-ventricle is hypokinetic - CTA suboptimal but no PE visualized ESRD secondary to diabetic nephropathy - ( T,R,S) - nephrology consulted, appreciate recs - trend renal function - monitor I/O's - Hold Sensipar 20 mg daily and Sevelamer 1600 mg tid while NPO HTN/HLD/ PAD - Lopressor 50 mg bid, Amlodipine 2.5 mg 4x/wk, plavix 75 mg daily held - Atorvastatin 40 mg daily held Chronic diastolic CHF - Lasix was held on admission, no evidence of fluid overload on exam and hypotensive; taking 80 mg bid Hypothyroidism - levo 112 mcg daily PO held Peripheral neuropathy - Gabapentin 100 mg bid held Mood Disorder Wellbutrin held while NPO - NOT to be restarted while on Linezolid DVT prophylaxis - heparin Subq to be restarted after heparin drip d/c FULL CODE Continued [facility] stay due to: abnormal vital signs, multiple IV medications needed, other Discharge planning: uncertain Reviewed: Pt Seen/Exam by Me History alert this am. walked upto the toilet. not conversing though. opens eyes to verbal command Constitutional: denies: fever Respiratory: negative: short of breath Cardiovascular: denies chest pain General Appearance: no apparent distress Respiratory: lungs clear, no respiratory distress Cardiovascular: regular rate, rhythm Gastrointestinal: soft Neurologic/Psychiatric: alert, oriented x 3 Skin Characteristics: warm/dry Assessment/Plan Resident Physician Supervision Note: I independently interviewed and examined the patient and verified the dunn history and physical, reviewed labs and image studies, discussed the case with the resident Dr. Silva and agree with the findings and care plan.
--- NOTE | 2017-05-01 11:14 | INFECT. DISEASE CONSULTATION ---
DATE OF CONSULTATION: 05/01/2017 HISTORY OF PRESENT ILLNESS: This is a 51-year-old gentleman who was admitted through the ER who has an acute change in mental status that worsened throughout the day on the . On my exam today, he is only moaning and unable to answer any questions. He recently per the H&P, had a bronchoscopy and was found to have an airway collapse. He also has a history of COPD. He does not wear oxygen at home, but does use CPAP. He is on nasal cannula oxygen on my exam. A bronch culture from the grew Haemophilus influenza. AFB culture was negative. AFB smear was negative as well. Fungal smear was negative, but there is a rare fungus growing, which has not yet been identified. It is unclear if he was on antibiotics prior to admission. He is unable to answer that question. He was found to have a white blood cell count of 33 in the Emergency Room and this has improved to 26. He was placed on Zyvox, imipenem and steroids. His troponin is elevated at 18. His creatinine is elevated at 5.2. Blood cultures so far are negative. A sputum culture has not been obtained. A CTA did not show any evidence of PE, but did show an infectious bronchiolitis. Again, he is unable to provide any review of systems at this time. PAST MEDICAL HISTORY: Significant for history of pneumonia, anemia, appendectomy, hypertension, bipolar disorder, chronic kidney disease, on dialysis, COPD, type 1 diabetes, multiple lower extremity amputations, hypothyroidism. FAMILY HISTORY: Noncontributory. SOCIAL HISTORY: Unremarkable. ALLERGIES: INCLUDE CODEINE, TETRACYCLINE, CLINDAMYCIN, PENICILLIN, CIPRO, MORPHINE, OPIOIDS AND OXYCODONE. CURRENT MEDICATIONS: Include subQ heparin, Solu-Medrol, insulin, linezolid, imipenem, albuterol, Maalox, milk of magnesia, Zofran and MiraLax. PHYSICAL EXAMINATION: VITAL SIGNS: He is currently afebrile. His T-max was 38.4 on arrival to the hospital, pulse 98, blood pressure is 151/90, oxygen saturation is 98% on BiPAP. NEUROLOGIC: He is awake, but unable to answer any questions. Mucous membranes are dry. LUNGS: Coarse bilaterally. HEART: Rate is regular and tachycardic, but difficult to auscultate due to lung sounds. ABDOMEN: Soft. EXTREMITIES: There is no lower extremity edema. Previous surgical sites are well healed. LABORATORY STUDIES: CBC today is 26.6, hemoglobin 12.9, platelets are 246. Chemistry panel reveals a sodium of 135, potassium 4.2, chloride 100, bicarbonate 25, BUN 28, creatinine 5.4, glucose is 258. Troponin was 18. This is up from 0.051 on admission. LFTs are within normal limits. Flu swab is negative. Blood cultures are negative. IMAGING: As above. He is also being followed by cardiology. Echocardiogram was done yesterday. There are no vegetations. ASSESSMENT AND PLAN: Likely pneumonia. He will remain on empiric antibiotics. A sputum culture should be obtained if able. He will continue with oxygen. Blood cultures are negative so far. We will continue to monitor. Thank you for this consultation.
[2017-05-01] MEDS: LINEZOLID / D5W 600 MG in PREMIXED IN D5W 300 ML IV SCH ×2 (12:51→23:15)
[2017-05-01] MEDS: INSULIN REGULAR 250 UNITS in SODIUM CHLORIDE 0.9% 250ML 250 ML IV SCH (12:53)
--- NOTE | 2017-05-01 13:40 | PULMONARY PROGRESS NOTE ---
DATE: 05/01/2017 CHIEF COMPLAINT: Sepsis/end-stage renal disease. SUBJECTIVE: Mr. Clark was seen and examined this morning. He received dialysis exchange yesterday and was seen by Dr. Leger this morning. He is being treated for presumed septic shock and required initially volume resuscitation. It was felt that his level elevation was from his hypotension as there were no obvious ischemic changes on EKG. The patient will open his eyes to command but will not verbalize, but moves extremities spontaneously and apparently was attempting to crawl out of bed this morning. He tolerated BIPAP with O2 supplementation last night without incident. PHYSICAL EXAMINATION: VITAL SIGNS: Currently, temperature 36.8, pulse 98 and regular, respiratory rate 16, blood pressure 151/90, O2 98%. SKIN: Without lesion. HEENT: Atraumatic, normocephalic. PERRLA. LUNGS: Scattered rhonchi over the large airway as well as bibasilar rales. CARDIAC: Regular rate and rhythm. I do not appreciate a gallop. ABDOMEN: Soft, protuberant. EXTREMITIES: +1 pitting edema. No clubbing or peripheral cyanosis. NEUROLOGICAL: No obvious lateralizing signs, no obvious meningismus. He will open his eyes to command. IMAGING DATA: CTA on April 30 was reviewed, showed obvious narrowing of the lower trachea exaggerated by the phase of respiration, extensive centrilobular ground-glass with solid nodularity in the upper lobes and superior segment lower lobes. No obvious pulmonary thromboembolic disease. Reactive mediastinal and hilar lymph nodes seen. LABORATORY DATA: Cultures were obtained. Blood cultures to date are negative. White count 26,000, was 33,000 on admission; H&H 12 and 38. OVERALL ASSESSMENT: A 51-year-old white male with end-stage renal disease from insulin-dependent diabetes mellitus and with a history of tracheomalacia, possible aspiration pneumonia and sepsis, currently receiving intravenous methylprednisolone, intravenous linezolid and imipenem along with aerosolized bronchodilator. PLAN: Would maintain current therapy and watch for any signs to suggest incipient respiratory failure. I do believe patient sounds somewhat improved today. Will repeat chest x-ray tomorrow.
--- NOTE | 2017-05-01 15:24 | CARDIOLOGY CONSULTATION ---
DATE OF CONSULTATION: 05/01/2017 PERTINENT HISTORY: Mr. Clark is a 51-year-old male, admitted on April 29 with sepsis felt to be secondary to a pulmonary source. The patient developed an elevated troponin I level and therefore, this consultation was ordered. The patient was in his usual state of health until the day of presentation. He was found unconscious by his and brought to the Emergency Room for further evaluation. Workup here suggested diffuse pulmonary infection and sepsis. The patient has demonstrated hypotension during the initial 36 hours of hospitalization. Blood pressure was as low as 77/57. The patient has not experienced any chest discomfort. I have spoken with his at length. She denies a prior cardiac history. He has never complained of exertional chest pain. He does note limiting dyspnea. He has not experienced any syncope, presyncope, PND, orthopnea, palpitations, or lower extremity edema. The patient does carry a history of moderate aortic stenosis as found on an echocardiogram in August 2016. He was also found to have left ventricular hypertrophy and evidence of diastolic dysfunction. Currently, the patient is in bed, but restless. His history does not seem reliable. PAST MEDICAL HISTORY: 1. Moderate aortic stenosis - August 2016. 2. Hypertension. 3. Moderate LVH. 4. Diastolic dysfunction. 5. Hypercholesterolemia. 6. Peripheral vascular disease. 7. Right femoral bypass - 2011. 8. Right great toe amputation. 9. Diabetes mellitus. 10. COPD. 11. Chronic bronchiectasis. 12. Tracheomalacia. 13. Hypothyroidism. 14. End-stage renal disease, on dialysis. 15. Anemia of chronic disease. 16. Right upper extremity AV fistula. 17. Appendectomy. 18. Anxiety/depression. MEDICATIONS: 1. Heparin drip. 2. Methylprednisolone 20 mg IV t.i.d. 3. Imipenem 200 mg IV q.6 hours. 4. Linezolid 600 mg IV b.i.d. MEDICATIONS ON HOLD: 1. Metoprolol tartrate 50 mg b.i.d. 2. Norvasc 2.5 mg per day. 3. Lipitor 40 mg at bedtime. 4. Lasix 80 mg per day. 5. Plavix 75 mg per daily. 6. Synthroid 0.112 mg daily. ALLERGIES: As listed. SOCIAL HISTORY: The patient is and lives with his . Currently, on disability. Quit tobacco use in 2013. Alcohol use is rare. FAMILY HISTORY: No early coronary artery disease. REVIEW OF SYSTEMS: A 10-point review of systems was negative according to the . PHYSICAL EXAMINATION: GENERAL: This is a well-developed, well-nourished white male in no acute distress. VITAL SIGNS: Blood pressure is 137/82 with a regular pulse of 80. Respiratory rate is 16. The patient is afebrile at 36.7 degrees Celsius. Saturation is 100% on 2 L nasal cannula. HEENT: Exam is negative. NECK: Supple with mildly delayed and prolonged carotid upstrokes. No obvious transmitted murmur. Jugular venous pressure is flat at 90 degrees. CARDIOVASCULAR: Exam reveals a regular rhythm with a 2/6 crescendo-decrescendo systolic murmur heard loudest at the base. No S3. LUNGS: Note decreased breath sounds at the bases, but no rales, rhonchi, or wheezes. ABDOMEN: Soft without bruits. EXTREMITIES: Reveal a bruit and fistula and a thrill over a fistula in the right upper extremity. Trace pretibial edema is noted. Right great toe is absent. DATA: CBC notes hemoglobin of 12.9, hematocrit 38.7, white count 26.6, and platelet count 246,000. Electrolytes note sodium of 135, potassium 4.2, chloride 100, bicarb 25, BUN 20, creatinine 5.46, glucose 141. Initial troponin was 0.051 with followup was 0.14, 18.2, 22.2, and now 18.1. No CKs obtained. TSH is normal at 1.11. Magnesium is normal at 2.24. Echocardiogram was technically limited, but notes normal left ventricular systolic function with an ejection fraction of 60% to 65%. There were no wall motion abnormalities. There is borderline left ventricular hypertrophy and evidence of diastolic dysfunction. The other abnormalities were difficult to assess. EKG notes sinus rhythm with a left atrial abnormality and an inferior T-wave abnormality. Chest x-ray notes cardiomegaly. CT scan of the chest noted no pulmonary embolism, but evidence of an infectious bronchiolitis. IMPRESSION: Mr. Clark was admitted with sepsis and hypertension, likely from a pulmonary source. Suspect that his elevated troponin is secondary to hypotension in the face of his previously diagnosed left ventricular hypertrophy and diastolic dysfunction. He demonstrates no wall motion abnormalities on his current echocardiogram making a large myocardial infarction unlikely. I do not feel that heparin is necessary. I would restart his cardiac medications when able. PLAN: 1. Could discontinue heparin. 2. Restart cardiac medications when able. 3. Further recommendations depending on his clinical course.
[2017-05-01 16:18] LABS: PTT PATIENT 43.7 SECONDS (21.0-31.0)
[2017-05-02] VITALS (12 sets, daily range): BP systolic 125–155; BP diastolic 74–95; PULSE 71–103; TEMP 36.4–37; O2SAT 96–100
[2017-05-02] MEDS: IMIPENEM-CILASTATIN 200 MG in DEXTROSE 5% 100ML 100 ML IV SCH ×4 (02:06→20:22)
[2017-05-02] MEDS: ALBUT/IPRATROP 3MG/0.5MG NEB 3 ML VIAL INH SCH ×4 (07:17→19:17)
[2017-05-02 07:18] LABS: BASO ABS # 0.01 K/uL (0-0.2); HEMATOCRIT 36.8 % (42-52); HEMOGLOBIN 12.2 g/dL (14.0-18.0); IG# 0.11 K/uL (0.00-0.02); LYMPH % 3.3 %; LYMPH ABS # 0.67 K/uL (1.2-3.4); MEAN CORPUSCULAR HEMOGLOBIN 34.5 pg (25-34); MEAN CORPUSCULAR HGB CONC 33.2 g/dl (32-36); MONO % 3.7 %; MONO ABS # 0.75 K/uL (0.11-0.59); NEUT % 92.5 %; NEUT ABS # 18.49 K/uL (1.4-6.5); PLATELET COUNT 234 K/uL (130-400); RED CELL DISTRIBUTION WIDTH CV 14.7 % (11.5-14.5); RED CELL DISTRIBUTION WIDTH SD 56.2 fL (36.4-46.3); WHITE BLOOD COUNT 20.03 K/uL (4.8-10.8)
--- NOTE | 2017-05-02 07:50 | DIAGNOSTIC IMAGING REPORT ---
CHEST ONE VIEW PORTABLE CLINICAL HISTORY: 51 years-old Male presenting with pneumonia. TECHNIQUE: Portable upright AP view of the chest was obtained. COMPARISON: 04/30/2017. FINDINGS: Atherosclerosis of aortic arch. Cardiac silhouette enlarged. Pulmonary vascular prominence. Dense left retrocardiac opacity. This is unchanged. Patchy nodular opacities at the right lung base, stable to increased from prior. Trace left pleural effusion may be present. No pneumothorax. Dextroscoliotic curvature of the thoracic spine. IMPRESSION: 1. Persistent dense consolidation in the left lower lobe, likely extensive atelectasis. 2. Patchy nodular opacities in the right lung consistent with bronchopneumonia, which appears stable to slightly worsened from prior. The extent of involvement was better demonstrated on recent CT from 04/30/2017. Electronically signed by: Xavier Green M.D. 05/02/2017 7:49 AM Dictated Date/Time: 05/02/2017 7:46 AM
[2017-05-02] MEDS: SENSIPAR~ORDER AWAITING ACTION SCH ×4 (08:00→23:12)
[2017-05-02] MEDS: INCRUSE ELLIPTA~ORDER AWAITING ACTION SCH ×4 (08:00→23:12)
[2017-05-02] MEDS: INSULIN ASPART 100 UNITS/ML 3 ML PEN SC SCH ×4 (08:00→22:00)
[2017-05-02 08:01] LABS: CALCIUM 9.5 mg/dl (8.5-10.1); CREATININE 7.19 mg/dl (0.60-1.40); POTASSIUM 4.1 mmol/L (3.5-5.1)
--- NOTE | 2017-05-02 09:38 | CARDIOLOGY PROGRESS NOTE ---
DATE: 05/02/2017 SUBJECTIVE: Mr. Clark is resting comfortably in the bedside chair without complaints of chest pain or dyspnea. OBJECTIVE: VITAL SIGNS: Blood pressure 145/89 with a regular pulse of 90. Respiratory rate is 16. The patient is afebrile at 36.5 degrees Celsius. Saturations 100% on 2 liters nasal cannula. NECK: Supple with delayed and prolonged carotid upstrokes. A transmitted murmur is noted bilaterally. Jugular venous pressure is difficult to assess. CARDIOVASCULAR: Reveals a regular rhythm with a 2/6 crescendo decrescendo systolic murmur heard loudest at the bases. No diastolic murmurs. No S3. LUNGS: Note coarse breath sounds throughout, but no rales. ABDOMEN: Soft without bruits. EXTREMITIES: Reveal trace pretibial edema bilaterally. LABORATORY DATA: CBC notes hemoglobin 12.2, hematocrit 36.8, white count 20.03, platelet count 234,000. Electrolytes note a sodium of 138, potassium 4.1, chloride 101, bicarb 24, BUN 42, creatinine 7.19, glucose 131. Troponin is down to 10.8 from a peak value of 22.2. front desk monitor noted one episode of nonsustained ventricular tachycardia numbering 4 beats at length. IMPRESSION AND PLAN: 1. Elevated troponin -- most likely secondary to subendocardial ischemia realizing his left ventricular hypertrophy, diastolic dysfunction, and his hypotension at the time of presentation, I do not feel this represents myocardial ischemia. Echocardiogram notes normal left ventricular systolic function without wall motion abnormalities. 2. Moderate aortic stenosis. 3. Hypertension -- moderate LVH and diastolic dysfunction. 4. Hypercholesterolemia. 5. Peripheral vascular disease. 6. Hypotension -- resolved.
[2017-05-02] MEDS ORDERED: FUROSEMIDE IV ONE (09:40)
[2017-05-02] MEDS: METHYLPREDNISOLONE IV 20 MG in SYRINGE 0 ML IV SCH ×3 (10:03→20:31)
--- NOTE | 2017-05-02 10:22 | Progress Note ---
Subjective Date of Service: May 02, 2017. Subjective Pt evaluation today including: conversation w/ patient, physical exam, chart review, lab review pt oob to chair, much more comfortable today. no overnight evens. remains on O2. afebrile. tolerating abx. no sob. Problem List Medical Problems: (1) Bronchitis Status: Acute (2) Change in mental status Status: Acute (3) Contusion of head Status: Acute (4) End stage renal disease Status: Acute (5) ESRD (end stage renal disease) on dialysis Status: Acute (6) Fall Status: Acute (7) Hypoglycemia Status: Acute (8) Hypoglycemia Status: Acute (9) Hypoglycemia Status: Acute (10) Hypoglycemia Status: Acute (11) Hypoglycemia Status: Acute (12) Hypoglycemia Status: Acute (13) Hypokalemia Status: Acute (14) Hypoxemia Status: Acute (15) Leukocytosis Status: Acute (16) Right lower lobe pneumonia Status: Acute (17) Right middle lobe pneumonia Status: Acute (18) Sepsis Status: Acute (19) Sepsis Status: Acute (20) Syncope Status: Acute (21) Traumatic hematoma of forehead Status: Acute Objective Vital Signs Date Time Temp Pulse Resp B/P (MAP) Pulse Ox O2 Delivery O2 Flow Rate FiO2 05/02/17 08:11 36.5 92 14 145/89 (107) 100 BiPAP 05/02/17 07:18 93 99 35 05/02/17 07:17 93 14 99 Nasal Cannula 2.0 05/02/17 04:00 BiPAP 05/02/17 03:35 36.5 96 19 125/74 (91) 99 Room Air 05/02/17 02:28 103 97 35 05/02/17 00:00 BiPAP 05/01/17 23:50 105 96 35 05/01/17 23:38 36.8 107 21 131/75 (93) 95 BiPAP 05/01/17 20:00 BiPAP 05/01/17 19:59 37.0 109 20 136/76 (96) 96 BiPAP 05/01/17 19:12 109 97 35 05/01/17 16:00 Nasal Cannula 2.0 05/01/17 15:20 37.2 105 20 140/76 (97) 96 Nasal Cannula 3.0 05/01/17 15:01 97 16 94 Nasal Cannula 2.0 05/01/17 13:07 Nasal Cannula 2.0 05/01/17 11:56 36.7 97 16 137/82 (100) 100 Nasal Cannula 2.0 05/01/17 11:10 100 16 100 Nasal Cannula 2.0 Physical Exam General Appearance: WD/WN, no apparent distress Eyes: normal inspection, EOMI Neck: supple Respiratory/Chest: lungs clear, normal breath sounds, no respiratory distress, + pertinent finding (lung exam much improved today) Cardiovascular: regular rate, rhythm, + systolic murmur Abdomen: non tender, soft Extremities: non-tender, no pedal edema Neurologic/Psychiatric: alert Skin: normal color Laboratory Results Item Value Date Time Blood Culture - Preliminary Resulted 04/29/171934 Blood NO GROWTH TO DATE. Blood Culture - Preliminary Resulted 04/29/171852 Blood NO GROWTH TO DATE. Last 24 Hours Test 05/01/17 11:01 05/01/17 12:29 05/01/17 15:50 05/01/17 16:17 Troponin I 10.800 ng/ml Bedside Glucose 241 mg/dl 337 mg/dl Activated Partial Thromboplast Time 43.7 SECONDS Partial Thromboplastin Ratio 1.7 Test 05/01/17 17:57 05/01/17 18:30 05/01/17 19:32 05/01/17 20:31 Bedside Glucose 305 mg/dl 277 mg/dl 243 mg/dl 210 mg/dl Test 05/01/17 22:33 05/01/17 23:32 05/02/17 00:36 05/02/17 01:28 Bedside Glucose 143 mg/dl 127 mg/dl 136 mg/dl 120 mg/dl Test 05/02/17 02:29 05/02/17 03:27 05/02/17 04:26 05/02/17 05:30 Bedside Glucose 131 mg/dl 138 mg/dl 120 mg/dl 123 mg/dl Test 05/02/17 06:26 05/02/17 06:32 05/02/17 07:40 05/02/17 09:39 White Blood Count 20.03 K/uL Red Blood Count 3.54 M/uL Hemoglobin 12.2 g/dL Hematocrit 36.8 % Mean Corpuscular Volume 104.0 fL Mean Corpuscular Hemoglobin 34.5 pg Mean Corpuscular Hemoglobin Concent 33.2 g/dl Platelet Count 234 K/uL Mean Platelet Volume 10.0 fL Neutrophils (%) (Auto) 92.5 % Lymphocytes (%) (Auto) 3.3 % Monocytes (%) (Auto) 3.7 % Eosinophils (%) (Auto) 0.0 % Basophils (%) (Auto) 0.0 % Neutrophils # (Auto) 18.49 K/uL Lymphocytes # (Auto) 0.67 K/uL Monocytes # (Auto) 0.75 K/uL Eosinophils # (Auto) 0.00 K/uL Basophils # (Auto) 0.01 K/uL RDW Standard Deviation 56.2 fL RDW Coefficient of Variation 14.7 % Immature Granulocyte % (Auto) 0.5 % Immature Granulocyte # (Auto) 0.11 K/uL Sodium Level 138 mmol/L Potassium Level 4.1 mmol/L Chloride Level 101 mmol/L Carbon Dioxide Level 24 mmol/L Anion Gap 13.0 mmol/L Blood Urea Nitrogen 42 mg/dl Creatinine 7.19 mg/dl Est Creatinine Clear Calc Drug Dose 12.5 ml/min Estimated GFR () 9.3 Estimated GFR (Non- 8.0 BUN/Creatinine Ratio 5.9 Random Glucose 131 mg/dl Calcium Level 9.5 mg/dl Phosphorus Level 5.0 mg/dl Magnesium Level 2.5 mg/dl Bedside Glucose 127 mg/dl 129 mg/dl 152 mg/dl Assessment and Plan (1) Pneumonia Assessment & Plan: much improved today, continue abx and follow culture results. sputum culture pending. Continued [facility] stay due to: abnormal vital signs, multiple IV medications needed, other Discharge planning: uncertain
--- NOTE | 2017-05-02 10:45 | Nephrology Progress Note ---
Nephrology Progress Note Date of Service May 02, 2017. Subjective Gino was seen and examined in his room this am. Overall feeling poorly and getting easily SOB while sitting in chair and talking. Seems slightly confused. BP, O2 sat stable. Review of Systems A complete review of systems was performed. Pertinent positives are noted above. All other systems are negative. Vital Signs Last 8 Hrs Date Time Temp Pulse Resp B/P (MAP) Pulse Ox O2 Delivery O2 Flow Rate FiO2 05/02/17 08:11 36.5 92 14 145/89 (107) 100 BiPAP 05/02/17 07:17 93 14 99 Nasal Cannula 2.0 05/02/17 04:00 BiPAP 05/02/17 03:35 36.5 96 19 125/74 (91) 99 Room Air 05/02/17 02:28 103 97 35 Last Recorded Weight Weight (Kilograms): 83.000 Physical Exam GENERAL: middle aged male, awake, alert, in mild to moderate distress. NECK: Supple, no JVD. RESPIRATORY: crackles b/l all over CARDIOVASCULAR: S1, S2 normal, rate rhythm regular. EXTREMITY: trace b/l lower extremity edema NEURO: speech fluent. Family History FH: heart disease Negative for CKD / ESRD Social History Smoking Status: Current every day smoker Smokeless Tobacco Use: No Alcohol Use: none Drug Use: none Marital Status: Housing Status: lives with family Occupation: disabled . Medically disabled. Former smoker (Quit 2013) Laboratory Results Past 24 Hours 05/02/17 06:26 Red Blood Count 3.54, Mean Corpuscular Volume 104.0, Mean Corpuscular Hemoglobin 34.5, Mean Corpuscular Hemoglobin Concent 33.2, Mean Platelet Volume 10.0, Neutrophils (%) (Auto) 92.5, Lymphocytes (%) (Auto) 3.3, Monocytes (%) ( Auto) 3.7, Eosinophils (%) (Auto) 0.0, Basophils (%) (Auto) 0.0, Neutrophils # ( Auto) 18.49, Lymphocytes # (Auto) 0.67, Monocytes # (Auto) 0.75, Eosinophils # ( Auto) 0.00, Basophils # (Auto) 0.01 05/02/17 06:26 Test 05/01/17 09:36 05/01/17 11:01 05/01/17 12:29 05/01/17 15:50 Bedside Glucose 238 mg/dl (70-99) 241 mg/dl (70-99) Troponin I 10.800 ng/ml (0-0.045) Activated Partial Thromboplast Time 43.7 SECONDS (21.0-31.0) Partial Thromboplastin Ratio 1.7 Test 05/01/17 16:17 05/01/17 17:57 05/01/17 18:30 05/01/17 19:32 Bedside Glucose 337 mg/dl (70-99) 305 mg/dl (70-99) 277 mg/dl (70-99) 243 mg/dl (70-99) Test 05/01/17 20:31 05/01/17 22:33 05/01/17 23:32 05/02/17 00:36 Bedside Glucose 210 mg/dl (70-99) 143 mg/dl (70-99) 127 mg/dl (70-99) 136 mg/dl (70-99) Test 05/02/17 01:28 05/02/17 02:29 05/02/17 03:27 05/02/17 04:26 Bedside Glucose 120 mg/dl (70-99) 131 mg/dl (70-99) 138 mg/dl (70-99) 120 mg/dl (70-99) Test 05/02/17 05:30 05/02/17 06:26 05/02/17 06:32 05/02/17 07:40 Bedside Glucose 123 mg/dl (70-99) 127 mg/dl (70-99) 129 mg/dl (70-99) White Blood Count 20.03 K/uL (4.8-10.8) Red Blood Count 3.54 M/uL (4.7-6.1) Hemoglobin 12.2 g/dL (14.0-18.0) Hematocrit 36.8 % (42-52) Mean Corpuscular Volume 104.0 fL (80-100) Mean Corpuscular Hemoglobin 34.5 pg (25-34) Mean Corpuscular Hemoglobin Concent 33.2 g/dl (32-36) Platelet Count 234 K/uL (130-400) Mean Platelet Volume 10.0 fL (7.4-10.4) Neutrophils (%) (Auto) 92.5 % Lymphocytes (%) (Auto) 3.3 % Monocytes (%) (Auto) 3.7 % Eosinophils (%) (Auto) 0.0 % Basophils (%) (Auto) 0.0 % Neutrophils # (Auto) 18.49 K/uL (1.4-6.5) Lymphocytes # (Auto) 0.67 K/uL (1.2-3.4) Monocytes # (Auto) 0.75 K/uL (0.11-0.59) Eosinophils # (Auto) 0.00 K/uL (0-0.5) Basophils # (Auto) 0.01 K/uL (0-0.2) RDW Standard Deviation 56.2 fL (36.4-46.3) RDW Coefficient of Variation 14.7 % (11.5-14.5) Immature Granulocyte % (Auto) 0.5 % Immature Granulocyte # (Auto) 0.11 K/uL (0.00-0.02) Anion Gap 13.0 mmol/L (3-11) Est Creatinine Clear Calc Drug Dose 12.5 ml/min Estimated GFR () 9.3 Estimated GFR (Non- 8.0 BUN/Creatinine Ratio 5.9 (10-20) Calcium Level 9.5 mg/dl (8.5-10.1) Phosphorus Level 5.0 mg/dl (2.5-4.9) Magnesium Level 2.5 mg/dl (1.8-2.4) Allergies Coded Allergies: Codeine (Verified Allergy, Intermediate, NAUSEA AND VOMITING, 04/18/17) QUESTIONABLE ALLERGY, STILL QUESTIONABLE BUT D/C SHONDA WITH COD 02/20/17 Tigecycline (Verified Allergy, Mild, ?RASH, 04/18/17) Clindamycin (Verified Allergy, Unknown, Unknown, 04/29/17) Penicillins (Verified Allergy, Unknown, PT HAS HAD MEFOXIN W/OUT A PROBLEM , 04/18/17) HAD MEFOXIN W/O PROBLEM Ciprofloxacin (Verified Adverse Reaction, Intermediate, nausea,vomiting, generalized weakness, 04/18/17) Morphine (Verified Adverse Reaction, Intermediate, TREMBLING,NAUSEA AND VOMITING, 04/18/17) Opioid Analgesics (Verified Adverse Reaction, Intermediate, "ALL RX PAIN MEDS CAUSE SEVERE NAUSEA", 04/18/17) Levofloxacin (Verified Adverse Reaction, Mild, Cipro/Levaquin (IV & po) = N & V, 04/18/17) Oxycodone (Verified Adverse Reaction, Unknown, N/V/D, 04/18/17) SPOKE WITH PATIENT ON 07/29/15, DOES NOT REMEMBER ANY DIFFICULTY BREATHING JUST HIT HIM HARD. Medications Current Inpatient Medications Medications (Trade) Dose Ordered Sig/Etta Route Start Time Stop Time Status Last Admin Dose Admin Al Hydrox/Mg Hydrox/Simethicone (Maalox Max Susp) 15 ml Q4H PRN PO 04/29/17 21:30 05/29/17 21:29 Magnesium Hydroxide (Milk Of Magnesia Susp) 30 ml Q12H PRN PO 04/29/17 21:30 05/29/17 21:29 Ondansetron HCl (Zofran Inj) 4 mg Q6H PRN IV 04/29/17 21:30 05/29/17 21:29 Polyethylene (Miralax Powder Packet) 17 gm DAILY PRN PO 04/29/17 21:30 05/29/17 21:29 Albuterol/ Ipratropium (Duoneb) 3 ml QIDR INH 04/30/17 08:00 05/30/17 07:59 05/02/17 07:17 3 ML Glucose (Glucose 40% Gel) 15-30 GRAMS 15 GRAMS... UD PRN PO 04/29/17 22:00 05/29/17 21:59 Glucose (Glucose Chew Tab) 4-8 Tablets 4 Tabl... UD PRN PO 04/29/17 22:00 05/29/17 21:59 Dextrose (Dextrose 50% 50ML Syringe) 25-50ML OF 50% DW IV FOR... UD PRN IV 04/29/17 22:00 05/29/17 21:59 Glucagon (Glucagon Inj) 1 mg UD PRN SQ 04/29/17 22:00 05/29/17 21:59 Amlodipine Besylate (Norvasc Tab) 2.5 mg DAILY PO 04/30/17 09:00 05/30/17 08:59 Future Hold Atorvastatin Calcium (Lipitor Tab) 40 mg HS PO 04/30/17 21:00 05/30/17 20:59 Future Hold Bupropion HCl (Wellbutrin-Sr Tab) 200 mg QPM PO 04/30/17 21:00 05/30/17 20:59 Future Hold Clopidogrel Bisulfate (plAVix TAB) 75 mg Q2D@0900 PO 04/30/17 09:00 05/30/17 08:59 Future Hold Furosemide (Lasix Tab) 80 mg BID17 PO 04/30/17 09:00 05/30/17 08:59 Future Hold Gabapentin (Neurontin Cap) 100 mg BID PO 04/30/17 09:00 05/30/17 08:59 Future Hold Levothyroxine Sodium (Synthroid Tab) 112 mcg DAILYBB PO 04/30/17 06:00 05/30/17 05:59 Future Hold Metoprolol Tartrate (Lopressor Tab) 50 mg BID PO 04/30/17 09:00 05/30/17 08:59 Future Hold Miscellaneous Information (Order Awaiting Action) 1 ea QS N/A 04/30/17 00:00 05/30/17 00:00 Miscellaneous Information (Order Awaiting Action) 1 ea QS N/A 04/30/17 00:00 05/30/17 00:00 Sevelamer HCl (Renagel Tab) 1,600 mg TID PO 04/30/17 09:00 05/30/17 08:59 Future Hold Miscellaneous Information (Order Awaiting Action) 1 ea QS N/A 04/30/17 00:00 05/30/17 00:00 Imipenem/ Cilastatin Sodium 200 mg/Dextrose 108 ml @ 108 mls/hr Q6H IV 04/30/17 08:00 05/07/17 07:59 05/02/17 02:06 108 MLS/HR Imipenem/ Cilastatin Sodium (Consult) 1 ea UD PRN N/A 04/30/17 09:00 05/30/17 08:59 Linezolid 600 mg/ Prmx 300 ml @ 300 mls/hr Q12H IV 04/30/17 11:00 05/07/17 10:59 05/01/17 23:15 300 MLS/HR Insulin Aspart (novoLOG ASPART) [facility] 04/30/17 12:00 05/30/17 11:59 Methylprednisolone Sodium Succinate 20 mg/Syringe 0.32 ml @ 1.5 mls/min TID IV 04/30/17 14:00 05/30/17 13:59 05/01/17 20:59 1.5 MLS/MIN Miscellaneous Information (Consult Glycemic Management Pharmacy) 1 ea UD PRN N/A 04/30/17 10:45 05/30/17 10:44 Insulin Human Regular 250 units/ Sodium Chloride 252.5 ml @ 0 mls/hr Q24H IV 04/30/17 11:00 05/30/17 10:59 05/01/17 12:53 2.8 MLS/HR Ioversol (Optiray 320) 100 ml UD PRN IV 04/30/17 13:45 05/04/17 13:44 Dextrose/Sodium Chloride 1,000 ml @ 50 mls/hr Q20H IV 05/01/17 00:45 05/31/17 00:44 Impression (1) Altered level of consciousness (2) Sepsis (3) Hypotension arterial (4) Tracheomalacia (5) End-stage renal disease on hemodialysis Patient admitted to the hospital w/ presumed sepsis syndrome. He has a history of severe tracheal malacia with chronic bronchiectasis. He is now on broad spectrum antibiotics. Blood cultures are pending. CXR with mild congestive changes and bibasilar infiltrates PMH - ESRD due to diabetic nephropathy on IHD since 12/25 (HD TTS at [facility] - 4 hrs 2K 2Ca F180NR Qb 450 cc/min HCO3 34 EDW 83 kg), IDDM, HTN , PVD s/p R femoral artery bypass, anemia, hypothyroidism, hypercholesterolemia , bipolar disorder, COPD w/ severe tracheomalacia and chronic bronchiectasis ( quit smoking ~ 2013). Recommendations -- seems volume overloaded , DC IV fluid, lasix 160 mg IV x 1 dose now. --BP and electrolyte balance are acceptable at this time. Will try to avoid HD today and plan for HD tomorrow --Avoid further IV fluid --Hgb is acceptable. No acute indication for GINO at this time. Will monitor. --on broad spectrum antibiotics. Blood cultures are NGTD.
[2017-05-02] MEDS ORDERED: METOPROLOL TARTRATE 25 MG TAB PO ONE (11:30)
[2017-05-02] MEDS: INSULIN REGULAR 250 UNITS in SODIUM CHLORIDE 0.9% 250ML 250 ML IV SCH (11:44)
[2017-05-02] MEDS: LINEZOLID / D5W 600 MG in PREMIXED IN D5W 300 ML IV SCH ×2 (11:45→23:11)
--- NOTE | 2017-05-02 14:16 | Family Medicine Progress Note ---
Progress Note Date of Service May 02, 2017. Subjective Pt evaluation today including: conversation w/ patient, physical exam, chart review, lab review, review of studies Pain: No pain reported this morning Voiding: no voiding problems, no incontinence Patient resting comfortably sitting in bedside chair with no acute complaints. Mental status of the patient appear significantly improved as patient is responding with 1-2 word phrases, whereas yesterday patient was groaning and mumbling responses. The patient is currently tolerating his diet well with no acute complaints of abdominal pain. The patient also denies any acute shortness of breath at this time but is still having a productive cough. Denies fevers, chills, nausea, vomiting. Constitutional: + fatigue, No fever, No chills, No sweats Respiratory: + cough, + sputum, + wheezing, No shortness of breath Cardiovascular: No chest pain, No edema, No palpitations Abdomen: No pain, No nausea, No vomiting, No diarrhea, No constipation Medications Current Inpatient Medications Medications (Trade) Dose Ordered Sig/Etta Route Start Time Stop Time Status Last Admin Dose Admin Al Hydrox/Mg Hydrox/Simethicone (Maalox Max Susp) 15 ml Q4H PRN PO 04/29/17 21:30 05/29/17 21:29 Magnesium Hydroxide (Milk Of Magnesia Susp) 30 ml Q12H PRN PO 04/29/17 21:30 05/29/17 21:29 Ondansetron HCl (Zofran Inj) 4 mg Q6H PRN IV 04/29/17 21:30 05/29/17 21:29 Polyethylene (Miralax Powder Packet) 17 gm DAILY PRN PO 04/29/17 21:30 05/29/17 21:29 Albuterol/ Ipratropium (Duoneb) 3 ml QIDR INH 04/30/17 08:00 05/30/17 07:59 05/02/17 11:00 3 ML Glucose (Glucose 40% Gel) 15-30 GRAMS 15 GRAMS... UD PRN PO 04/29/17 22:00 05/29/17 21:59 Glucose (Glucose Chew Tab) 4-8 Tablets 4 Tabl... UD PRN PO 04/29/17 22:00 05/29/17 21:59 Dextrose (Dextrose 50% 50ML Syringe) 25-50ML OF 50% DW IV FOR... UD PRN IV 04/29/17 22:00 05/29/17 21:59 Glucagon (Glucagon Inj) 1 mg UD PRN SQ 04/29/17 22:00 05/29/17 21:59 Amlodipine Besylate (Norvasc Tab) 2.5 mg DAILY PO 04/30/17 09:00 05/30/17 08:59 Future hold Atorvastatin Calcium (Lipitor Tab) 40 mg HS PO 04/30/17 21:00 05/30/17 20:59 Future hold Bupropion HCl (Wellbutrin-Sr Tab) 200 mg QPM PO 04/30/17 21:00 05/30/17 20:59 Future Hold Clopidogrel Bisulfate (plAVix TAB) 75 mg Q2D@0900 PO 04/30/17 09:00 05/30/17 08:59 Future Hold Furosemide (Lasix Tab) 80 mg BID17 PO 04/30/17 09:00 05/30/17 08:59 Future hold Gabapentin (Neurontin Cap) 100 mg BID PO 04/30/17 09:00 05/30/17 08:59 Future Hold Levothyroxine Sodium (Synthroid Tab) 112 mcg DAILYBB PO 04/30/17 06:00 05/30/17 05:59 Future Hold Miscellaneous Information (Order Awaiting Action) 1 ea QS N/A 04/30/17 00:00 05/30/17 00:00 Miscellaneous Information (Order Awaiting Action) 1 ea QS N/A 04/30/17 00:00 05/30/17 00:00 Sevelamer HCl (Renagel Tab) 1,600 mg TID PO 04/30/17 09:00 05/30/17 08:59 Future Hold Miscellaneous Information (Order Awaiting Action) 1 ea QS N/A 04/30/17 00:00 05/30/17 00:00 Imipenem/ Cilastatin Sodium 200 mg/Dextrose 108 ml @ 108 mls/hr Q6H IV 04/30/17 08:00 05/07/17 07:59 05/02/17 10:03 108 MLS/HR Imipenem/ Cilastatin Sodium (Consult) 1 ea UD PRN N/A 04/30/17 09:00 05/30/17 08:59 Linezolid 600 mg/ Prmx 300 ml @ 300 mls/hr Q12H IV 04/30/17 11:00 05/07/17 10:59 05/02/17 11:45 300 MLS/HR Insulin Aspart (novoLOG ASPART) SLIDING SCALE PCHS SC 04/30/17 12:00 05/30/17 11:59 Methylprednisolone Sodium Succinate 20 mg/Syringe 0.32 ml @ 1.5 mls/min TID IV 04/30/17 14:00 05/30/17 13:59 05/02/17 10:03 1.5 MLS/MIN Miscellaneous Information (Consult Glycemic Management Pharmacy) 1 ea UD PRN N/A 04/30/17 10:45 05/30/17 10:44 Insulin Human Regular 250 units/ Sodium Chloride 252.5 ml @ 0 mls/hr Q24H IV 04/30/17 11:00 05/30/17 10:59 05/02/17 11:44 1.9 MLS/HR Ioversol (Optiray 320) 100 ml UD PRN IV 04/30/17 13:45 05/04/17 13:44 Metoprolol Tartrate (Lopressor Tab) 50 mg BID PO 05/03/17 09:00 05/30/17 08:59 Metoprolol Tartrate (Lopressor Tab) 25 mg BID PO 05/02/17 21:00 05/02/17 23:59 Objective Vital Signs Date Time Temp Pulse Resp B/P (MAP) Pulse Ox O2 Delivery O2 Flow Rate FiO2 05/02/17 11:46 37.0 98 19 130/79 (96) 97 Nasal Cannula 3.0 05/02/17 11:02 101 16 97 Nasal Cannula 3.0 05/02/17 08:11 36.5 92 14 145/89 (107) 100 BiPAP 05/02/17 08:00 Nasal Cannula 2.0 05/02/17 07:18 93 99 35 05/02/17 07:17 93 14 99 Nasal Cannula 2.0 05/02/17 04:00 BiPAP 05/02/17 03:35 36.5 96 19 125/74 (91) 99 Room Air 05/02/17 02:28 103 97 35 05/02/17 00:00 BiPAP 05/01/17 23:50 105 96 35 05/01/17 23:38 36.8 107 21 131/75 (93) 95 BiPAP 05/01/17 20:00 BiPAP 05/01/17 19:59 37.0 109 20 136/76 (96) 96 BiPAP 05/01/17 19:12 109 97 35 05/01/17 16:00 Nasal Cannula 2.0 05/01/17 15:20 37.2 105 20 140/76 (97) 96 Nasal Cannula 3.0 05/01/17 15:01 97 16 94 Nasal Cannula 2.0 Physical Exam General Appearance: WD/WN, + obese Neck: supple, no carotid bruits, trachea midline Respiratory/Chest: chest non-tender, no respiratory distress, + crackles, + rales, + wheezing Cardiovascular: regular rate, rhythm, + systolic murmur (04/26 crushendo decrushendo) Abdomen: normal bowel sounds, non tender, soft Extremities: no pedal edema, no calf tenderness Neurologic/Psychiatric: alert, oriented x 3, + pertinent finding (Slowed speech ) Laboratory Results Results Past 24 Hours Test 05/01/17 15:50 05/01/17 16:17 05/01/17 17:57 05/01/17 18:30 Range/Units Activated Partial Thromboplast Time 43.7 21.0-31.0 SECONDS Partial Thromboplastin Ratio 1.7 Bedside Glucose 337 305 277 70-99 mg/dl Test 05/01/17 19:32 05/01/17 20:31 05/01/17 22:33 05/01/17 23:32 Range/Units Bedside Glucose 243 210 143 127 70-99 mg/dl Test 05/02/17 00:36 05/02/17 01:28 05/02/17 02:29 05/02/17 03:27 Range/Units Bedside Glucose 136 120 131 138 70-99 mg/dl Test 05/02/17 04:26 05/02/17 05:30 05/02/17 06:26 05/02/17 06:32 Range/Units Bedside Glucose 120 123 127 70-99 mg/dl White Blood Count 20.03 4.8-10.8 K/uL Red Blood Count 3.54 4.7-6.1 M/uL Hemoglobin 12.2 14.0-18.0 g/dL Hematocrit 36.8 42-52 % Mean Corpuscular Volume 104.0 80-100 fL Mean Corpuscular Hemoglobin 34.5 25-34 pg Mean Corpuscular Hemoglobin Concent 33.2 32-36 g/dl Platelet Count 234 130-400 K/uL Mean Platelet Volume 10.0 7.4-10.4 fL Neutrophils (%) (Auto) 92.5 % Lymphocytes (%) (Auto) 3.3 % Monocytes (%) (Auto) 3.7 % Eosinophils (%) (Auto) 0.0 % Basophils (%) (Auto) 0.0 % Neutrophils # (Auto) 18.49 1.4-6.5 K/uL Lymphocytes # (Auto) 0.67 1.2-3.4 K/uL Monocytes # (Auto) 0.75 0.11-0.59 K/uL Eosinophils # (Auto) 0.00 0-0.5 K/uL Basophils # (Auto) 0.01 0-0.2 K/uL RDW Standard Deviation 56.2 36.4-46.3 fL RDW Coefficient of Variation 14.7 11.5-14.5 % Immature Granulocyte % (Auto) 0.5 % Immature Granulocyte # (Auto) 0.11 0.00-0.02 K/uL Sodium Level 138 136-145 mmol/L Potassium Level 4.1 3.5-5.1 mmol/L Chloride Level 101 98-107 mmol/L Carbon Dioxide Level 24 21-32 mmol/L Anion Gap 13.0 3-11 mmol/L Blood Urea Nitrogen 42 7-18 mg/dl Creatinine 7.19 0.60-1.40 mg/dl Est Creatinine Clear Calc Drug Dose 12.5 ml/min Estimated GFR () 9.3 Estimated GFR (Non- 8.0 BUN/Creatinine Ratio 5.9 10-20 Random Glucose 131 70-99 mg/dl Calcium Level 9.5 8.5-10.1 mg/dl Phosphorus Level 5.0 2.5-4.9 mg/dl Magnesium Level 2.5 1.8-2.4 mg/dl Test 05/02/17 07:40 05/02/17 09:39 05/02/17 11:31 Range/Units Bedside Glucose 129 152 194 70-99 mg/dl Assessment and Plan 51 year old male with a past medical history of DM, COPD, ESRD on dialysis, hx of PE, Bipolar and hypothyroidism that presented to the ED with acute loss of consciousness and changes on CXR concerning for a hospital acquired PNA/ infectious bronchiectasis Sepsis most likely secondary to infectious bronchiectasis/HAP and complicated by a history of severe tracheomalacia/ chronic bronchiectasis, COPD and positive resp culture with ESBL 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 XYLOSOXIDANS in 2016 - Methylpred 20 mg q8h IV --> Plan to convert to PO Steroids tomorrow - Due to ESBL cultures on bronchoscopy (04/18/2017) transitioned to Primaxin and Zyvox; ID consulted - Pulmonary consulted - Blood Cultures x 2 pending --> prelim negative - Duonebs qid - Home Ellipta held - Sputum Culture preliminarily negative DKA in setting of acute infection and no insulin pump; DM1 on insulin pump; stable on infusion pump - Continuing insulin drip --> Will discuss with family about plans to resume insulin pump or convert to subq insulin - Glycemic consult - Fluids discontinued this morning --> Previously on D5NSS @ 50cc/h Elevated troponin, possible NSTEMI ACS II in light of septic picture - Troponin trending down --> Peak of 22, currently < 10 - Echo - No regional wall motion abnormalities, no significant changes - EKG NSR with no ST changes - Monitor on tele, heparin initiated - Echo August 2016: * There is mild concentric left ventricular hypertrophy with EF 55-65% * Grade I diastolic dysfunction, (abnormal relaxation pattern). * Moderate valvular aortic stenosis. * There is mild mitral stenosis. * Inferior wall from base to mid-ventricle is hypokinetic - CTA suboptimal but no PE visualized ESRD secondary to diabetic nephropathy - Nephrology consulted - Dialysis in Tuesday, , and Tuesday - Daily BMP and Monitor I/O's - Resume home Sevelamer 1600 mg tid - Holding home Sensipar 20 mg daily HTN/HLD/ PAD - Lopressor 25mg BID today and then resume home dose of Lopressor 50mg BID tomorrow - Tomorrow will resume Amlodipine 2.5 mg 4x/wk, plavix 75 mg daily, and Atorvastatin 40 mg daily Chronic diastolic CHF - Dose of 160mg IV Lasix given today, will resume home PO Lasix dose tomorrow Hypothyroidism - Resume home Synthroid 112 mcg PO qdaily Peripheral neuropathy - Hold Gabapentin 100 mg bid Mood Disorder - Continue to hold Wellbutrin --> CONTRAINDICATED WITH LINEZOLID TREATMENT DVT prophylaxis - Heparin 5,000 units Sq daily Code Status - Full Resuscitation Resident Tracking Resident Involvement: Resident Care Provided Care Provided: Adult Hospital Medicine
--- NOTE | 2017-05-02 15:27 | Pharmacy Progress Note ---
Pharmacy Glycemic Short Note 2 Date of Service May 02, 2017. OUTPATIENT ANTIDIABETIC REGIMEN: * NovoLog SQ insulin pump * Follows with Dr Sumner/[facility] [facility] * Basal rates ~ 14.4 units/day * Bolus CF = 20mg/dl/unit * CR = 1 unit for every 12g CHO consumed ASSESSMENT: * Pt continues on IV insulin infusion for baseline T1DM and steroid induced hyperglycemia. * Solumedrol continues at 20 mg IV TID. Per provider, steroids will most likely be weaned/changed to PO tomorrow. Provider prefers to continue IV insulin infusion until tomorrow. We will transition to outpatient SQ insulin pump tomorrow. * IV insulin infusion rates are stable around 2 units/hr. * PO intake is very poor PLAN FOR INPATIENT GLYCEMIC CONTROL: * Continue IV insulin infusion per protocol * Goal range 140 - 200 mg/dl * Bolus insulin * Nutritional / Prandial insulin per carb ratio as determined by IV insulin infusion calculator * Will transition to SQ insulin (pump vs basal bolus) tomorrow when steroids are tapered
--- NOTE | 2017-05-02 18:08 | Pulmonology Progress Note ---
Pulmonary Progress Note Date of Service May 02, 2017. Attending Dr. Ojeda Subjective Patient able sit up in chair saturating well on nasal cannula at this time showing no signs of respiratory insufficiency or distress. He is also unable to answer questions appropriately. Objective Patient sitting but chair looking comfortable but unable to answer questions appropriately. Vital signs: Stable on 3.5 liters Respiratory: Decreased breath sounds globally with rhonchi at the bases Cardiac: S1-S2 distant heart sounds regular rate rhythm Abdomen: Positive bowel sounds soft nontender AGENT CONTRACT CLERK: Patient orientated only to self Pulmonary Microbiology Bronchial washing/right lower lobe 09/18/2014: Aurora albicans, other yeast species Bronchial washing/right and left lower lobe 08/01/2015: Achromobacter Xylosoxidans Bronchial washing/right and left lower lobe 08/01/2015: Yeast species Bronchial washing/right middle lobe 04/18/2017: Haemophilus influenzae beta lactamase negative, penicillium species Microbiology Left foot 04/06/2010: MSSA Right 10/09/2010: Citrobacter, Klebsiella pneumonia, Pseudomonas, alpha strep Right toe 11/25/2010: Bacteroides species, Shewanella Putrefaciens Toe 01/01/2011: Chronic bacterium, Bacteroides species Right foot 02/03/2011: Corynebacterium, coag-negative staph, achromobacter Xylosoxidans Deep toe 01/01/2011: Corynebacterium, Bacteroides species Toe 08/18/2011: Proteus mirabilis, staff ACOS aureus, corynebacterium Right foot 12/22/2011: MSSA, corynebacterium Right leg 02/21/2012: Coag-negative staph Right thigh 03/16/2012: Pseudomonas aeruginosa Right foot 06/28/2012: MRSA Right leg 09/12/2012: MSSA: Pseudomonas, MRSA Right foot 10/18/2012: MSSA, MRSA Right foot 05/25/2013: Pseudomonas aeruginosa Right foot 11/23/2013: MSSA Assessment & Plan 51-year-old gentleman admitted with altered mental status and sepsis: 1. Sepsis: Patient currently on Linezolid and Primaxin with no atypical coverage with most recent bronchoscopy growing out Haemophilus influenzae beta lactamase negative organism. Infectious Disease is currently monitoring this patient and will defer antibiotics to the choice. I would remind the team's though that this patient is grown out multiple different organisms from Pseudomonas, Bacteroides, corynebacterium, MSSA, MRSA from different skin infections as well as his recent Haemophilus influenza a and Achromobacter Xylosoxidans from 2016. It should also be noted that the patient has had 2 bronchoscopy since that episode and we have never Re grown this species. Along with this the patient has had chronic bilateral lower lobe collapse on multiple CTs this Re most recent CT is not dramatic change from his previous ones. When the patient is able repeating a swallow evaluation is most likely warranted. 2. Excessive Dynamic Airway Collapse (EDAC): The patient does not have classic tracheobronchial malacia. He has notable posterior wall weakness which creates the images currently seen on CT. This is currently being defined as EDAC and is treated with CPAP as much as tolerated by the patient. At this time the patient is notably altered and this would be a difficult course of treatment. Data Medications: Current Inpatient Medications Medications (Trade) Dose Ordered Sig/Etta Route Start Time Stop Time Status Last Admin Dose Admin Al Hydrox/Mg Hydrox/Simethicone (Maalox Max Susp) 15 ml Q4H PRN PO 04/29/17 21:30 05/29/17 21:29 Magnesium Hydroxide (Milk Of Magnesia Susp) 30 ml Q12H PRN PO 04/29/17 21:30 05/29/17 21:29 Ondansetron HCl (Zofran Inj) 4 mg Q6H PRN IV 04/29/17 21:30 05/29/17 21:29 Polyethylene (Miralax Powder Packet) 17 gm DAILY PRN PO 04/29/17 21:30 05/29/17 21:29 Albuterol/ Ipratropium (Duoneb) 3 ml QIDR INH 04/30/17 08:00 05/30/17 07:59 05/02/17 11:00 3 ML Glucose (Glucose 40% Gel) 15-30 GRAMS 15 GRAMS... UD PRN PO 04/29/17 22:00 05/29/17 21:59 Glucose (Glucose Chew Tab) 4-8 Tablets 4 Tabl... UD PRN PO 04/29/17 22:00 05/29/17 21:59 Dextrose (Dextrose 50% 50ML Syringe) 25-50ML OF 50% DW IV FOR... UD PRN IV 04/29/17 22:00 05/29/17 21:59 Glucagon (Glucagon Inj) 1 mg UD PRN SQ 04/29/17 22:00 05/29/17 21:59 Amlodipine Besylate (Norvasc Tab) 2.5 mg DAILY PO 04/30/17 09:00 05/30/17 08:59 Future hold Atorvastatin Calcium (Lipitor Tab) 40 mg HS PO 04/30/17 21:00 05/30/17 20:59 Future hold Bupropion HCl (Wellbutrin-Sr Tab) 200 mg QPM PO 04/30/17 21:00 05/30/17 20:59 Future Hold Clopidogrel Bisulfate (plAVix TAB) 75 mg Q2D@0900 PO 04/30/17 09:00 05/30/17 08:59 Future hold Furosemide (Lasix Tab) 80 mg BID17 PO 04/30/17 09:00 05/30/17 08:59 Future hold Gabapentin (Neurontin Cap) 100 mg BID PO 04/30/17 09:00 05/30/17 08:59 Future Hold Levothyroxine Sodium (Synthroid Tab) 112 mcg DAILYBB PO 04/30/17 06:00 05/30/17 05:59 Future hold Miscellaneous Information (Order Awaiting Action) 1 ea QS N/A 04/30/17 00:00 05/30/17 00:00 Miscellaneous Information (Order Awaiting Action) 1 ea QS N/A 04/30/17 00:00 05/30/17 00:00 Sevelamer HCl (Renagel Tab) 1,600 mg TID PO 04/30/17 09:00 05/30/17 08:59 Future hold Miscellaneous Information (Order Awaiting Action) 1 ea QS N/A 04/30/17 00:00 05/30/17 00:00 Imipenem/ Cilastatin Sodium 200 mg/Dextrose 108 ml @ 108 mls/hr Q6H IV 04/30/17 08:00 05/07/17 07:59 05/02/17 14:32 108 MLS/HR Imipenem/ Cilastatin Sodium (Consult) 1 ea UD PRN N/A 04/30/17 09:00 05/30/17 08:59 Linezolid 600 mg/ Prmx 300 ml @ 300 mls/hr Q12H IV 04/30/17 11:00 05/07/17 10:59 05/02/17 11:45 300 MLS/HR Insulin Aspart (novoLOG ASPART) SLIDING SCALE PCHS SC 04/30/17 12:00 05/30/17 11:59 Methylprednisolone Sodium Succinate 20 mg/Syringe 0.32 ml @ 1.5 mls/min TID IV 04/30/17 14:00 05/30/17 13:59 05/02/17 14:32 1.5 MLS/MIN Miscellaneous Information (Consult Glycemic Management Pharmacy) 1 ea UD PRN N/A 04/30/17 10:45 05/30/17 10:44 Insulin Human Regular 250 units/ Sodium Chloride 252.5 ml @ 0 mls/hr Q24H IV 04/30/17 11:00 05/30/17 10:59 05/02/17 11:44 1.9 MLS/HR Ioversol (Optiray 320) 100 ml UD PRN IV 04/30/17 13:45 05/04/17 13:44 Metoprolol Tartrate (Lopressor Tab) 50 mg BID PO 05/03/17 09:00 05/30/17 08:59 Metoprolol Tartrate (Lopressor Tab) 25 mg BID PO 05/02/17 21:00 05/02/17 23:59 Amlodipine Besylate (Norvasc Tab) 2.5 mg Q48H PO 05/03/17 08:00 06/02/17 07:59 I & O: 24-Hour Column 05/03/17 08:00 Intake Total 1324 ml Balance 1324 ml Vital Signs: Date Time Temp Pulse Resp B/P (MAP) Pulse Ox O2 Delivery O2 Flow Rate FiO2 05/02/17 15:21 36.8 74 18 147/92 (110) 99 Nasal Cannula 3.5 05/02/17 14:15 Nasal Cannula 2.0 05/02/17 11:46 37.0 98 19 130/79 (96) 97 Nasal Cannula 3.0 05/02/17 11:02 101 16 97 Nasal Cannula 3.0 05/02/17 08:11 36.5 92 14 145/89 (107) 100 BiPAP 05/02/17 08:00 Nasal Cannula 2.0 05/02/17 07:18 93 99 35 05/02/17 07:17 93 14 99 Nasal Cannula 2.0 05/02/17 04:00 BiPAP 05/02/17 03:35 36.5 96 19 125/74 (91) 99 Room Air 05/02/17 02:28 103 97 35 05/02/17 00:00 BiPAP 05/01/17 23:50 105 96 35 05/01/17 23:38 36.8 107 21 131/75 (93) 95 BiPAP 05/01/17 20:00 BiPAP 05/01/17 19:59 37.0 109 20 136/76 (96) 96 BiPAP 05/01/17 19:12 109 97 35 Laboratory Results: Last 24 Hours Test 05/01/17 17:57 05/01/17 18:30 05/01/17 19:32 05/01/17 20:31 Bedside Glucose 305 mg/dl 277 mg/dl 243 mg/dl 210 mg/dl Test 05/01/17 22:33 05/01/17 23:32 05/02/17 00:36 05/02/17 01:28 Bedside Glucose 143 mg/dl 127 mg/dl 136 mg/dl 120 mg/dl Test 05/02/17 02:29 05/02/17 03:27 05/02/17 04:26 05/02/17 05:30 Bedside Glucose 131 mg/dl 138 mg/dl 120 mg/dl 123 mg/dl Test 05/02/17 06:26 05/02/17 06:32 05/02/17 07:40 05/02/17 09:39 White Blood Count 20.03 K/uL Red Blood Count 3.54 M/uL Hemoglobin 12.2 g/dL Hematocrit 36.8 % Mean Corpuscular Volume 104.0 fL Mean Corpuscular Hemoglobin 34.5 pg Mean Corpuscular Hemoglobin Concent 33.2 g/dl Platelet Count 234 K/uL Mean Platelet Volume 10.0 fL Neutrophils (%) (Auto) 92.5 % Lymphocytes (%) (Auto) 3.3 % Monocytes (%) (Auto) 3.7 % Eosinophils (%) (Auto) 0.0 % Basophils (%) (Auto) 0.0 % Neutrophils # (Auto) 18.49 K/uL Lymphocytes # (Auto) 0.67 K/uL Monocytes # (Auto) 0.75 K/uL Eosinophils # (Auto) 0.00 K/uL Basophils # (Auto) 0.01 K/uL RDW Standard Deviation 56.2 fL RDW Coefficient of Variation 14.7 % Immature Granulocyte % (Auto) 0.5 % Immature Granulocyte # (Auto) 0.11 K/uL Sodium Level 138 mmol/L Potassium Level 4.1 mmol/L Chloride Level 101 mmol/L Carbon Dioxide Level 24 mmol/L Anion Gap 13.0 mmol/L Blood Urea Nitrogen 42 mg/dl Creatinine 7.19 mg/dl Est Creatinine Clear Calc Drug Dose 12.5 ml/min Estimated GFR () 9.3 Estimated GFR (Non- 8.0 BUN/Creatinine Ratio 5.9 Random Glucose 131 mg/dl Calcium Level 9.5 mg/dl Phosphorus Level 5.0 mg/dl Magnesium Level 2.5 mg/dl Bedside Glucose 127 mg/dl 129 mg/dl 152 mg/dl Test 05/02/17 11:31 05/02/17 14:23 05/02/17 15:26 05/02/17 16:37 Bedside Glucose 194 mg/dl 293 mg/dl 226 mg/dl 164 mg/dl
[2017-05-02] MEDS ORDERED: METOPROLOL TARTRATE 25 MG TAB PO SCH (21:00)
[2017-05-02] MEDS: SEVELAMER HYDROCH 800 MG TAB PO SCH (21:59)
[2017-05-02] MEDS: ATORVASTATIN 40 MG TAB PO SCH (21:59)
[2017-05-03] VITALS (28 sets, daily range): BP systolic 136–177; BP diastolic 61–92; PULSE 66–88; TEMP 36.5–37; O2SAT 93–98
[2017-05-03 00:09] LABS: BASO % 0.1 %; BASO ABS # 0.01 K/uL (0-0.2); EOS % 0.1 %; EOS ABS # 0.01 K/uL (0-0.5); HEMATOCRIT 36.6 % (42-52); HEMOGLOBIN 12.2 g/dL (14.0-18.0); IG# 0.07 K/uL (0.00-0.02); LYMPH % 5.4 %; LYMPH ABS # 0.75 K/uL (1.2-3.4); MEAN CELL VOLUME 102.2 fL (80-100); MEAN CORPUSCULAR HEMOGLOBIN 34.1 pg (25-34); MEAN CORPUSCULAR HGB CONC 33.3 g/dl (32-36); MEAN PLATELET VOLUME 10.1 fL (7.4-10.4); NEUT % 88.9 %; NEUT ABS # 12.41 K/uL (1.4-6.5); PLATELET COUNT 227 K/uL (130-400); RED CELL DISTRIBUTION WIDTH CV 14.7 % (11.5-14.5); RED CELL DISTRIBUTION WIDTH SD 54.6 fL (36.4-46.3); WHITE BLOOD COUNT 13.95 K/uL (4.8-10.8)
[2017-05-03] MEDS: IMIPENEM-CILASTATIN 200 MG in DEXTROSE 5% 100ML 100 ML IV SCH ×4 (01:54→19:05)
[2017-05-03 07:05] LABS: CALCIUM 9.2 mg/dl (8.5-10.1); CREATININE 8.82 mg/dl (0.60-1.40); PHOSPHORUS 4.1 mg/dl (2.5-4.9)
[2017-05-03] MEDS: ALBUT/IPRATROP 3MG/0.5MG NEB 3 ML VIAL INH SCH ×4 (07:21→19:16)
[2017-05-03] MEDS: INCRUSE ELLIPTA~ORDER AWAITING ACTION SCH ×2 (08:00→15:14)
[2017-05-03] MEDS: SENSIPAR~ORDER AWAITING ACTION SCH ×2 (08:00→15:14)
[2017-05-03] MEDS: INSULIN ASPART 100 UNITS/ML 3 ML PEN SC SCH ×4 (08:00→20:16)
[2017-05-03] MEDS: SEVELAMER HYDROCH 800 MG TAB PO SCH ×3 (08:42→18:07)
[2017-05-03] MEDS: INSULIN REGULAR 250 UNITS in SODIUM CHLORIDE 0.9% 250ML 250 ML IV SCH ×8 (09:18→23:14)
--- NOTE | 2017-05-03 09:23 | CARDIOLOGY PROGRESS NOTE ---
DATE: 05/03/2017 SUBJECTIVE: Mr. Clark is resting comfortably in bed without complaints of chest pain or dyspnea. He is currently undergoing hemodialysis. OBJECTIVE: VITAL SIGNS: Blood pressure is 165/85 with a regular pulse of 80. Respiratory rate is 18. The patient is afebrile at 36.8 degrees Celsius. Saturation is 96% on 3 liters nasal cannula. NECK: Supple with delayed and prolonged carotid upstrokes. Jugular venous pressure is flat at 90 degrees. No thyromegaly. CARDIOVASCULAR: Reveals a regular rhythm with a 2/6 crescendo-decrescendo systolic murmur heard loudest at the base. No S3. LUNGS: Note coarse breath sounds throughout. ABDOMEN: Soft without bruits. EXTREMITIES: Reveal trace pretibial edema bilaterally. LABORATORY DATA: CBC notes a hemoglobin of 12.2, hematocrit 36.6, white count 13.9, and platelet count 227,000. Electrolytes note a sodium of 133, potassium 4.0, chloride 99, bicarb 21, BUN 58, creatinine 8.8, and glucose 155. monitor technician notes occasional PACs and PVCs. IMPRESSION AND PLAN: 1. Elevated troponin -- likely secondary to a supply demand mismatch at time of presentation. He has moderate left ventricular hypertrophy along with diastolic dysfunction. He had hypotension at the time of presentation, related to his sepsis syndrome. Echocardiogram notes normal left ventricular systolic function. 2. Moderate aortic stenosis. 3. Hypertension -- with moderate LVH and diastolic dysfunction. 4. Hypercholesterolemia. 5. Peripheral vascular disease. 6. Hypotension -- resolved. 7. Chronic renal failure.
[2017-05-03] MEDS ORDERED: NURSING VERBAL MED ORDER ONE (09:45)
--- NOTE | 2017-05-03 09:56 | Nephrology Progress Note ---
Nephrology Progress Note Date of Service May 03, 2017. Chief Complaint Follow-up for end-stage renal disease on hemodialysis. Subjective Gino was seen and examined in his room this morning, while he was getting dialysis. Tolerating dialysis well, denies any dizziness, lightheadedness, blood pressure and other vital sign remained stable. Tolerating ultrafiltration goal for 4 L. His speech much improved today. Review of Systems A complete review of systems was performed. Pertinent positives are noted above. All other systems are negative. Vital Signs Last 8 Hrs Date Time Temp Pulse Resp B/P (MAP) Pulse Ox O2 Delivery O2 Flow Rate FiO2 05/03/17 08:19 36.8 66 18 149/68 (95) 96 05/03/17 08:15 74 166/87 05/03/17 08:00 69 177/85 05/03/17 07:45 66 167/86 05/03/17 07:30 66 175/89 05/03/17 07:21 77 16 96 Nasal Cannula 3.0 05/03/17 07:15 68 175/91 05/03/17 07:00 79 173/84 05/03/17 06:45 76 171/62 05/03/17 06:30 88 160/61 05/03/17 06:15 72 164/80 05/03/17 06:00 72 160/92 05/03/17 05:50 36.7 71 157/82 (107) 05/03/17 04:00 Nasal Cannula 2.0 05/03/17 03:33 36.5 76 17 157/88 (111) 97 Nasal Cannula 2.0 Last Recorded Weight Weight (Kilograms): 84.500 Physical Exam GENERAL: middle aged male, awake, alert, in no distress. NECK: Supple, no JVD. RESPIRATORY: crackles b/l all over CARDIOVASCULAR: S1, S2 normal, rate rhythm regular. EXTREMITY: trace b/l lower extremity edema NEURO: speech fluent. Family History FH: heart disease Negative for CKD / ESRD Social History Smoking Status: Current every day smoker Smokeless Tobacco Use: No Alcohol Use: none Drug Use: none Marital Status: Housing Status: lives with family Occupation: disabled . Medically disabled. Former smoker (Quit 2013) Laboratory Results Past 24 Hours 05/02/17 23:50 Red Blood Count 3.58, Mean Corpuscular Volume 102.2, Mean Corpuscular Hemoglobin 34.1, Mean Corpuscular Hemoglobin Concent 33.3, Mean Platelet Volume 10.1, Neutrophils (%) (Auto) 88.9, Lymphocytes (%) (Auto) 5.4, Monocytes (%) ( Auto) 5.0, Eosinophils (%) (Auto) 0.1, Basophils (%) (Auto) 0.1, Neutrophils # ( Auto) 12.41, Lymphocytes # (Auto) 0.75, Monocytes # (Auto) 0.70, Eosinophils # ( Auto) 0.01, Basophils # (Auto) 0.01 05/03/17 06:09 Test 05/02/17 09:39 05/02/17 11:31 05/02/17 14:23 05/02/17 15:26 Bedside Glucose 152 mg/dl (70-99) 194 mg/dl (70-99) 293 mg/dl (70-99) 226 mg/dl (70-99) Test 05/02/17 16:37 05/02/17 17:32 05/02/17 18:47 05/02/17 19:31 Bedside Glucose 164 mg/dl (70-99) 227 mg/dl (70-99) 263 mg/dl (70-99) 307 mg/dl (70-99) Test 05/02/17 21:09 05/02/17 22:13 05/02/17 23:13 05/02/17 23:50 Bedside Glucose 313 mg/dl (70-99) 300 mg/dl (70-99) 288 mg/dl (70-99) White Blood Count 13.95 K/uL (4.8-10.8) Red Blood Count 3.58 M/uL (4.7-6.1) Hemoglobin 12.2 g/dL (14.0-18.0) Hematocrit 36.6 % (42-52) Mean Corpuscular Volume 102.2 fL (80-100) Mean Corpuscular Hemoglobin 34.1 pg (25-34) Mean Corpuscular Hemoglobin Concent 33.3 g/dl (32-36) Platelet Count 227 K/uL (130-400) Mean Platelet Volume 10.1 fL (7.4-10.4) Neutrophils (%) (Auto) 88.9 % Lymphocytes (%) (Auto) 5.4 % Monocytes (%) (Auto) 5.0 % Eosinophils (%) (Auto) 0.1 % Basophils (%) (Auto) 0.1 % Neutrophils # (Auto) 12.41 K/uL (1.4-6.5) Lymphocytes # (Auto) 0.75 K/uL (1.2-3.4) Monocytes # (Auto) 0.70 K/uL (0.11-0.59) Eosinophils # (Auto) 0.01 K/uL (0-0.5) Basophils # (Auto) 0.01 K/uL (0-0.2) RDW Standard Deviation 54.6 fL (36.4-46.3) RDW Coefficient of Variation 14.7 % (11.5-14.5) Immature Granulocyte % (Auto) 0.5 % Immature Granulocyte # (Auto) 0.07 K/uL (0.00-0.02) Test 05/03/17 00:22 05/03/17 01:05 05/03/17 02:14 05/03/17 03:42 Bedside Glucose 334 mg/dl (70-99) 279 mg/dl (70-99) 175 mg/dl (70-99) 185 mg/dl (70-99) Test 05/03/17 04:44 05/03/17 05:43 05/03/17 06:09 Bedside Glucose 174 mg/dl (70-99) 149 mg/dl (70-99) Venous Blood pH 7.40 (7.36-7.41) Anion Gap 13.0 mmol/L (3-11) Est Creatinine Clear Calc Drug Dose 10.3 ml/min Estimated GFR () 7.2 Estimated GFR (Non- 6.2 BUN/Creatinine Ratio 6.5 (10-20) Calcium Level 9.2 mg/dl (8.5-10.1) Phosphorus Level 4.1 mg/dl (2.5-4.9) Magnesium Level 2.5 mg/dl (1.8-2.4) Allergies Coded Allergies: Codeine (Verified Allergy, Intermediate, NAUSEA AND VOMITING, 04/18/17) QUESTIONABLE ALLERGY, STILL QUESTIONABLE BUT MD Villafuerte/David SHONDA WITH COD 02/20/17 Tigecycline (Verified Allergy, Mild, ?RASH, 04/18/17) Clindamycin (Verified Allergy, Unknown, Unknown, 04/29/17) Penicillins (Verified Allergy, Unknown, PT HAS HAD MEFOXIN W/OUT A PROBLEM , 04/18/17) HAD MEFOXIN W/O PROBLEM Ciprofloxacin (Verified Adverse Reaction, Intermediate, nausea,vomiting, generalized weakness, 04/18/17) Morphine (Verified Adverse Reaction, Intermediate, TREMBLING,NAUSEA AND VOMITING, 04/18/17) Opioid Analgesics (Verified Adverse Reaction, Intermediate, "ALL RX PAIN MEDS CAUSE SEVERE NAUSEA", 04/18/17) Levofloxacin (Verified Adverse Reaction, Mild, Cipro/Levaquin (IV & po) = N & V, 04/18/17) Oxycodone (Verified Adverse Reaction, Unknown, N/V/D, 04/18/17) SPOKE WITH PATIENT ON 07/29/15, DOES NOT REMEMBER ANY DIFFICULTY BREATHING JUST HIT HIM HARD. Medications Current Inpatient Medications Medications (Trade) Dose Ordered Sig/Etta Route Start Time Stop Time Status Last Admin Dose Admin Al Hydrox/Mg Hydrox/Simethicone (Maalox Max Susp) 15 ml Q4H PRN PO 04/29/17 21:30 05/29/17 21:29 Magnesium Hydroxide (Milk Of Magnesia Susp) 30 ml Q12H PRN PO 04/29/17 21:30 05/29/17 21:29 Ondansetron HCl (Zofran Inj) 4 mg Q6H PRN IV 04/29/17 21:30 05/29/17 21:29 Polyethylene (Miralax Powder Packet) 17 gm DAILY PRN PO 04/29/17 21:30 05/29/17 21:29 Albuterol/ Ipratropium (Duoneb) 3 ml QIDR INH 04/30/17 08:00 05/30/17 07:59 05/03/17 07:21 3 ML Glucose (Glucose 40% Gel) 15-30 GRAMS 15 GRAMS... UD PRN PO 04/29/17 22:00 05/29/17 21:59 Glucose (Glucose Chew Tab) 4-8 Tablets 4 Tabl... UD PRN PO 04/29/17 22:00 05/29/17 21:59 Dextrose (Dextrose 50% 50ML Syringe) 25-50ML OF 50% DW IV FOR... UD PRN IV 04/29/17 22:00 05/29/17 21:59 Glucagon (Glucagon Inj) 1 mg UD PRN SQ 04/29/17 22:00 05/29/17 21:59 Amlodipine Besylate (Norvasc Tab) 2.5 mg DAILY PO 04/30/17 09:00 05/30/17 08:59 Future hold Atorvastatin Calcium (Lipitor Tab) 40 mg HS PO 04/30/17 21:00 05/30/17 20:59 Future hold 05/02/17 21:59 40 MG Bupropion HCl (Wellbutrin-Sr Tab) 200 mg QPM PO 04/30/17 21:00 05/30/17 20:59 Future Hold Clopidogrel Bisulfate (plAVix TAB) 75 mg Q2D@0900 PO 04/30/17 09:00 05/30/17 08:59 Future hold Furosemide (Lasix Tab) 80 mg BID17 PO 04/30/17 09:00 05/30/17 08:59 Future hold Gabapentin (Neurontin Cap) 100 mg BID PO 04/30/17 09:00 05/30/17 08:59 Future Hold Levothyroxine Sodium (Synthroid Tab) 112 mcg DAILYBB PO 04/30/17 06:00 05/30/17 05:59 Future hold Miscellaneous Information (Order Awaiting Action) 1 ea QS N/A 04/30/17 00:00 05/30/17 00:00 Miscellaneous Information (Order Awaiting Action) 1 ea QS N/A 04/30/17 00:00 05/30/17 00:00 Sevelamer HCl (Renagel Tab) 1,600 mg TID PO 04/30/17 09:00 05/30/17 08:59 Future hold 05/02/17 21:59 1,600 MG Miscellaneous Information (Order Awaiting Action) 1 ea QS N/A 04/30/17 00:00 05/30/17 00:00 Imipenem/ Cilastatin Sodium 200 mg/Dextrose 108 ml @ 108 mls/hr Q6H IV 04/30/17 08:00 05/07/17 07:59 05/03/17 01:54 108 MLS/HR Imipenem/ Cilastatin Sodium (Consult) 1 ea UD PRN N/A 04/30/17 09:00 05/30/17 08:59 Linezolid 600 mg/ Prmx 300 ml @ 300 mls/hr Q12H IV 04/30/17 11:00 05/07/17 10:59 05/02/17 23:11 300 MLS/HR Insulin Aspart (novoLOG ASPART) SLIDING SCALE [facility] 04/30/17 12:00 05/30/17 11:59 Miscellaneous Information (Consult Glycemic Management Pharmacy) 1 ea UD PRN N/A 04/30/17 10:45 05/30/17 10:44 Insulin Human Regular 250 units/ Sodium Chloride 252.5 ml @ 0 mls/hr Q24H IV 04/30/17 11:00 05/30/17 10:59 05/02/17 11:44 1.9 MLS/HR Ioversol (Optiray 320) 100 ml UD PRN IV 04/30/17 13:45 05/04/17 13:44 Metoprolol Tartrate (Lopressor Tab) 50 mg BID PO 05/03/17 09:00 05/30/17 08:59 Amlodipine Besylate (Norvasc Tab) 2.5 mg Q48H PO 05/03/17 08:00 06/02/17 07:59 Prednisone (PredniSONE TAB) 40 mg QAM PO 05/03/17 09:00 06/02/17 08:59 Impression (1) Altered level of consciousness (2) Sepsis (3) Hypotension arterial (4) Tracheomalacia (5) End-stage renal disease on hemodialysis Patient admitted to the hospital w/ presumed sepsis syndrome. He has a history of severe tracheal malacia with chronic bronchiectasis. He is now on broad spectrum antibiotics. Blood cultures are pending. CXR with mild congestive changes and bibasilar infiltrates PMH - ESRD due to diabetic nephropathy on IHD since 12/25 (HD TTS at [facility] - 4 hrs 2K 2Ca F180NR Qb 450 cc/min HCO3 34 EDW 83 kg), IDDM, HTN , PVD s/p R femoral artery bypass, anemia, hypothyroidism, hypercholesterolemia , bipolar disorder, COPD w/ severe tracheomalacia and chronic bronchiectasis ( quit smoking ~ 2013). Recommendations --hemodialysis now with in for 4 L UF --Avoid further IV fluid --Hgb is acceptable. No acute indication for GINO at this time. Will monitor. --on broad spectrum antibiotics. Blood cultures are NGTD. Will follow
--- NOTE | 2017-05-03 09:59 | Progress Note ---
Subjective Date of Service: May 03, 2017. Subjective Pt evaluation today including: conversation w/ patient, physical exam, chart review, lab review pt continues to improve. He is currently receiving dialysis. He is much more awake than yesterday remains lethargic. When asked about his breathing he states it is relatively better. When he asks how he feels overall he states relatively better. He is afebrile overnight. He remains on empiric antibiotics. He is tolerating these well. His white blood cell count has improved significantly from 20-13. His blood cultures remain negative. There is no sputum culture to follow. He was evaluated by Pulmonary yesterday and previous bronchoscopy cultures were reviewed. Most recently he grew Haemophilus influenzae. The patient is unable to tell me if he was treated as an outpatient for this. His remaining review of systems is negative but limited as he answers relatively better to all questions. Problem List Medical Problems: (1) Bronchitis Status: Acute (2) Change in mental status Status: Acute (3) Contusion of head Status: Acute (4) End stage renal disease Status: Acute (5) ESRD (end stage renal disease) on dialysis Status: Acute (6) Fall Status: Acute (7) Hypoglycemia Status: Acute (8) Hypoglycemia Status: Acute (9) Hypoglycemia Status: Acute (10) Hypoglycemia Status: Acute (11) Hypoglycemia Status: Acute (12) Hypoglycemia Status: Acute (13) Hypokalemia Status: Acute (14) Hypoxemia Status: Acute (15) Leukocytosis Status: Acute (16) Right lower lobe pneumonia Status: Acute (17) Right middle lobe pneumonia Status: Acute (18) Sepsis Status: Acute (19) Sepsis Status: Acute (20) Syncope Status: Acute (21) Traumatic hematoma of forehead Status: Acute Objective Vital Signs Date Time Temp Pulse Resp B/P (MAP) Pulse Ox O2 Delivery O2 Flow Rate FiO2 05/03/17 09:45 81 157/77 05/03/17 09:30 81 154/71 05/03/17 09:15 85 164/83 05/03/17 09:00 81 159/85 05/03/17 08:45 80 165/85 05/03/17 08:30 81 162/87 05/03/17 08:19 36.8 66 18 149/68 (95) 96 05/03/17 08:15 74 166/87 05/03/17 08:00 Nasal Cannula 6.0 05/03/17 08:00 69 177/85 05/03/17 07:45 66 167/86 05/03/17 07:30 66 175/89 05/03/17 07:21 77 16 96 Nasal Cannula 3.0 05/03/17 07:15 68 175/91 05/03/17 07:00 79 173/84 05/03/17 06:45 76 171/62 05/03/17 06:30 88 160/61 05/03/17 06:15 72 164/80 05/03/17 06:00 72 160/92 05/03/17 05:50 36.7 71 157/82 (107) 05/03/17 04:00 Nasal Cannula 2.0 05/03/17 03:33 36.5 76 17 157/88 (111) 97 Nasal Cannula 2.0 05/03/17 00:01 Nasal Cannula 2.0 05/02/17 23:35 37.0 86 20 155/95 (115) 96 Nasal Cannula 2.0 05/02/17 22:20 71 98 35 05/02/17 20:00 Room Air 05/02/17 19:18 79 16 98 Nasal Cannula 3.0 05/02/17 19:04 36.4 79 16 150/94 (112) 98 Nasal Cannula 3.0 05/02/17 16:00 Nasal Cannula 2.0 05/02/17 15:21 36.8 74 18 147/92 (110) 99 Nasal Cannula 3.5 05/02/17 14:15 Nasal Cannula 2.0 05/02/17 11:46 37.0 98 19 130/79 (96) 97 Nasal Cannula 3.0 05/02/17 11:02 101 16 97 Nasal Cannula 3.0 Physical Exam General Appearance: WD/WN, no apparent distress Eyes: normal inspection, EOMI Neck: supple Respiratory/Chest: normal breath sounds, no respiratory distress, + rhonchi, + pertinent finding (Scattered rhonchi but significantly improved from admission) Cardiovascular: regular rate, rhythm, + systolic murmur Abdomen: soft Extremities: non-tender, no pedal edema Neurologic/Psychiatric: + pertinent finding (Remains confused but much more appropriate) Skin: normal color, warm/dry, no rash Laboratory Results Item Value Date Time Blood Culture - Preliminary Resulted 2/9/18 1935 Blood NO GROWTH TO DATE. Blood Culture - Preliminary Resulted 04/29/17 1853 Blood NO GROWTH TO DATE. Last 24 Hours Test 05/02/17 11:31 05/02/17 14:23 05/02/17 15:26 05/02/17 16:37 Bedside Glucose 194 mg/dl 293 mg/dl 226 mg/dl 164 mg/dl Test 05/02/17 17:32 05/02/17 18:47 05/02/17 19:31 05/02/17 21:09 Bedside Glucose 227 mg/dl 263 mg/dl 307 mg/dl 313 mg/dl Test 05/02/17 22:13 05/02/17 23:13 05/02/17 23:50 05/03/17 00:22 Bedside Glucose 300 mg/dl 288 mg/dl 334 mg/dl White Blood Count 13.95 K/uL Red Blood Count 3.58 M/uL Hemoglobin 12.2 g/dL Hematocrit 36.6 % Mean Corpuscular Volume 102.2 fL Mean Corpuscular Hemoglobin 34.1 pg Mean Corpuscular Hemoglobin Concent 33.3 g/dl Platelet Count 227 K/uL Mean Platelet Volume 10.1 fL Neutrophils (%) (Auto) 88.9 % Lymphocytes (%) (Auto) 5.4 % Monocytes (%) (Auto) 5.0 % Eosinophils (%) (Auto) 0.1 % Basophils (%) (Auto) 0.1 % Neutrophils # (Auto) 12.41 K/uL Lymphocytes # (Auto) 0.75 K/uL Monocytes # (Auto) 0.70 K/uL Eosinophils # (Auto) 0.01 K/uL Basophils # (Auto) 0.01 K/uL RDW Standard Deviation 54.6 fL RDW Coefficient of Variation 14.7 % Immature Granulocyte % (Auto) 0.5 % Immature Granulocyte # (Auto) 0.07 K/uL Test 05/03/17 01:05 05/03/17 02:14 05/03/17 03:42 05/03/17 04:44 Bedside Glucose 279 mg/dl 175 mg/dl 185 mg/dl 174 mg/dl Test 05/03/17 05:43 05/03/17 06:09 Bedside Glucose 149 mg/dl Venous Blood pH 7.40 Sodium Level 133 mmol/L Potassium Level 4.0 mmol/L Chloride Level 99 mmol/L Carbon Dioxide Level 21 mmol/L Anion Gap 13.0 mmol/L Blood Urea Nitrogen 58 mg/dl Creatinine 8.82 mg/dl Est Creatinine Clear Calc Drug Dose 10.3 ml/min Estimated GFR () 7.2 Estimated GFR (Non- 6.2 BUN/Creatinine Ratio 6.5 Random Glucose 155 mg/dl Calcium Level 9.2 mg/dl Phosphorus Level 4.1 mg/dl Magnesium Level 2.5 mg/dl Assessment and Plan (1) Pneumonia Assessment & Plan: At this time I will continue him on imipenem and discontinue his Zyvox. I doubt he will be able to provide a sputum culture. I suspect that he certainly could have had an aspiration event with his acute change in mental status. He is clinically improving on his current antibiotics and I do not feel that he needs any additional on coverage as he is having clinical improvement on his current course of antibiotics. Blood cultures remain negative. Continued [facility] stay due to: abnormal vital signs, multiple IV medications needed, other Discharge planning: uncertain
--- NOTE | 2017-05-03 11:45 | Pulmonology Progress Note ---
Pulmonary Progress Note Date of Service May 03, 2017. Attending Dr. Ojeda Subjective Patient notes he is greatly improved with mental and respiratory status over the last 24 hours. Objective Patient sitting but chair looking comfortable but unable to answer questions appropriately. VS: I/Os: +3.2L SaO2%: 96-97% FiO2: 2-6L RR: 16-18 HR: 66-88 Resp: rhonchi at the basis bilaterally with exp wheezing at the apices Card: S1 S2 with distant heart sounds Abd: + BS soft non-tender Ext: no break down General: oriented X2 Studies WBC: 14K Neutro#: 12.41 VB.40 corrected to 7.44 CXR 05/02/17 compared to 04/30/17 Persistent LLL infiltrate Diffuse patchy/nodular infiltrate R>L Microbiology: MRSA Nasal Swab: negative Blood x2: no growth Pulmonary Microbiology Bronchial washing/right lower lobe 09/18/2014: Aurora albicans, other yeast species Bronchial washing/right and left lower lobe 08/01/2015: Achromobacter Xylosoxidans Bronchial washing/right and left lower lobe 08/01/2015: Yeast species Bronchial washing/right middle lobe 04/18/2017: Haemophilus influenzae beta lactamase negative, penicillium species Microbiology Left foot 04/06/2010: MSSA Right 10/09/2010: Citrobacter, Klebsiella pneumonia, Pseudomonas, alpha strep Right toe 11/25/2010: Bacteroides species, Shewanella Putrefaciens Toe 01/01/2011: Chronic bacterium, Bacteroides species Right foot 02/03/2011: Corynebacterium, coag-negative staph, achromobacter Xylosoxidans Deep toe 01/01/2011: Corynebacterium, Bacteroides species Toe 08/18/2011: Proteus mirabilis, staff ACOS aureus, corynebacterium Right foot 12/22/2011: MSSA, corynebacterium Right leg 02/21/2012: Coag-negative staph Right thigh 03/16/2012: Pseudomonas aeruginosa Right foot 06/28/2012: MRSA Right leg 09/12/2012: MSSA: Pseudomonas, MRSA Right foot 10/18/2012: MSSA, MRSA Right foot 05/25/2013: Pseudomonas aeruginosa Right foot 11/23/2013: MSSA Assessment & Plan 51-year-old gentleman admitted with altered mental status and sepsis: 1. Sepsis: Patient is currently responding well to antibiotics. Infectious diseases decided to discontinue the Zyvox and continue imipenem at this time. There doesn't appear to be another source of infection other than the lungs I will send off a UA for further evaluation. Most likely will be clean after patient has been on antibiotics for multiple days. We'll continue to monitor the patient. As he is responding well we'll reevaluate for necessity of speech evaluation. 2. Excessive Dynamic Airway Collapse (EDAC): The patient does not have classic tracheobronchial malacia. He has notable posterior wall weakness which creates the images currently seen on CT. This is currently being defined as EDAC and is treated with CPAP as much as tolerated by the patient. Data Medications: Current Inpatient Medications Medications (Trade) Dose Ordered Sig/Etta Route Start Time Stop Time Status Last Admin Dose Admin Al Hydrox/Mg Hydrox/Simethicone (Maalox Max Susp) 15 ml Q4H PRN PO 04/29/17 21:30 05/29/17 21:29 Magnesium Hydroxide (Milk Of Magnesia Susp) 30 ml Q12H PRN PO 04/29/17 21:30 05/29/17 21:29 Ondansetron HCl (Zofran Inj) 4 mg Q6H PRN IV 04/29/17 21:30 05/29/17 21:29 Polyethylene (Miralax Powder Packet) 17 gm DAILY PRN PO 04/29/17 21:30 05/29/17 21:29 Albuterol/ Ipratropium (Duoneb) 3 ml QIDR INH 04/30/17 08:00 05/30/17 07:59 05/03/17 11:31 3 ML Glucose (Glucose 40% Gel) 15-30 GRAMS 15 GRAMS... UD PRN PO 04/29/17 22:00 05/29/17 21:59 Glucose (Glucose Chew Tab) 4-8 Tablets 4 Tabl... UD PRN PO 04/29/17 22:00 05/29/17 21:59 Dextrose (Dextrose 50% 50ML Syringe) 25-50ML OF 50% DW IV FOR... UD PRN IV 04/29/17 22:00 05/29/17 21:59 Glucagon (Glucagon Inj) 1 mg UD PRN SQ 04/29/17 22:00 05/29/17 21:59 Atorvastatin Calcium (Lipitor Tab) 40 mg HS PO 04/30/17 21:00 05/30/17 20:59 Future hold 05/02/17 21:59 40 MG Bupropion HCl (Wellbutrin-Sr Tab) 200 mg QPM PO 04/30/17 21:00 05/30/17 20:59 Future hold Clopidogrel Bisulfate (plAVix TAB) 75 mg Q2D@0900 PO 04/30/17 09:00 05/30/17 08:59 Future hold Furosemide (Lasix Tab) 80 mg BID17 PO 04/30/17 09:00 05/30/17 08:59 Future hold Gabapentin (Neurontin Cap) 100 mg BID PO 04/30/17 09:00 05/30/17 08:59 Future hold Levothyroxine Sodium (Synthroid Tab) 112 mcg DAILYBB PO 04/30/17 06:00 05/30/17 05:59 Future hold Miscellaneous Information (Order Awaiting Action) 1 ea QS N/A 04/30/17 00:00 05/30/17 00:00 Miscellaneous Information (Order Awaiting Action) 1 ea QS N/A 04/30/17 00:00 05/30/17 00:00 Sevelamer HCl (Renagel Tab) 1,600 mg TID PO 04/30/17 09:00 05/30/17 08:59 Future hold 05/02/17 21:59 1,600 MG Miscellaneous Information (Order Awaiting Action) 1 ea QS N/A 04/30/17 00:00 05/30/17 00:00 Imipenem/ Cilastatin Sodium 200 mg/Dextrose 108 ml @ 108 mls/hr Q6H IV 04/30/17 08:00 05/07/17 07:59 05/03/17 08:41 108 MLS/HR Imipenem/ Cilastatin Sodium (Consult) 1 ea UD PRN N/A 04/30/17 09:00 05/30/17 08:59 Insulin Aspart (novoLOG ASPART) SLIDING SCALE [facility] 04/30/17 12:00 05/30/17 11:59 Miscellaneous Information (Consult Glycemic Management Pharmacy) 1 ea UD PRN N/A 04/30/17 10:45 05/30/17 10:44 Insulin Human Regular 250 units/ Sodium Chloride 252.5 ml @ 0 mls/hr Q24H IV 04/30/17 11:00 05/30/17 10:59 05/03/17 10:16 2.2 MLS/HR Ioversol (Optiray 320) 100 ml UD PRN IV 04/30/17 13:45 05/04/17 13:44 Metoprolol Tartrate (Lopressor Tab) 50 mg BID PO 05/03/17 09:00 05/30/17 08:59 Amlodipine Besylate (Norvasc Tab) 2.5 mg Q48H PO 05/03/17 08:00 06/02/17 07:59 Prednisone (PredniSONE TAB) 40 mg QAM PO 05/03/17 09:00 06/02/17 08:59 05/03/17 08:41 40 MG I & O: 24-Hour Column 05/04/17 08:00 Output Total 4000 ml Balance -4000 ml Vital Signs: Date Time Temp Pulse Resp B/P (MAP) Pulse Ox O2 Delivery O2 Flow Rate FiO2 05/03/17 11:32 81 18 96 Nasal Cannula 2.5 05/03/17 10:10 36.5 84 151/68 (95) 05/03/17 10:00 79 148/69 05/03/17 09:45 81 157/77 05/03/17 09:30 81 154/71 05/03/17 09:15 85 164/83 05/03/17 09:00 81 159/85 05/03/17 08:45 80 165/85 05/03/17 08:30 81 162/87 05/03/17 08:19 36.8 66 18 149/68 (95) 96 05/03/17 08:15 74 166/87 05/03/17 08:00 Nasal Cannula 6.0 05/03/17 08:00 69 177/85 05/03/17 07:45 66 167/86 05/03/17 07:30 66 175/89 05/03/17 07:21 77 16 96 Nasal Cannula 3.0 05/03/17 07:15 68 175/91 05/03/17 07:00 79 173/84 05/03/17 06:45 76 171/62 05/03/17 06:30 88 160/61 05/03/17 06:15 72 164/80 05/03/17 06:00 72 160/92 05/03/17 05:50 36.7 71 157/82 (107) 05/03/17 04:00 Nasal Cannula 2.0 05/03/17 03:33 36.5 76 17 157/88 (111) 97 Nasal Cannula 2.0 05/03/17 00:01 Nasal Cannula 2.0 05/02/17 23:35 37.0 86 20 155/95 (115) 96 Nasal Cannula 2.0 05/02/17 22:20 71 98 35 05/02/17 20:00 Room Air 05/02/17 19:18 79 16 98 Nasal Cannula 3.0 05/02/17 19:04 36.4 79 16 150/94 (112) 98 Nasal Cannula 3.0 05/02/17 16:00 Nasal Cannula 2.0 05/02/17 15:21 36.8 74 18 147/92 (110) 99 Nasal Cannula 3.5 05/02/17 14:15 Nasal Cannula 2.0 05/02/17 11:46 37.0 98 19 130/79 (96) 97 Nasal Cannula 3.0 Laboratory Results: Last 24 Hours Test 05/02/17 14:23 05/02/17 15:26 05/02/17 16:37 05/02/17 17:32 Bedside Glucose 293 mg/dl 226 mg/dl 164 mg/dl 227 mg/dl Test 05/02/17 18:47 05/02/17 19:31 05/02/17 21:09 05/02/17 22:13 Bedside Glucose 263 mg/dl 307 mg/dl 313 mg/dl 300 mg/dl Test 05/02/17 23:13 05/02/17 23:50 05/03/17 00:22 05/03/17 01:05 Bedside Glucose 288 mg/dl 334 mg/dl 279 mg/dl White Blood Count 13.95 K/uL Red Blood Count 3.58 M/uL Hemoglobin 12.2 g/dL Hematocrit 36.6 % Mean Corpuscular Volume 102.2 fL Mean Corpuscular Hemoglobin 34.1 pg Mean Corpuscular Hemoglobin Concent 33.3 g/dl Platelet Count 227 K/uL Mean Platelet Volume 10.1 fL Neutrophils (%) (Auto) 88.9 % Lymphocytes (%) (Auto) 5.4 % Monocytes (%) (Auto) 5.0 % Eosinophils (%) (Auto) 0.1 % Basophils (%) (Auto) 0.1 % Neutrophils # (Auto) 12.41 K/uL Lymphocytes # (Auto) 0.75 K/uL Monocytes # (Auto) 0.70 K/uL Eosinophils # (Auto) 0.01 K/uL Basophils # (Auto) 0.01 K/uL RDW Standard Deviation 54.6 fL RDW Coefficient of Variation 14.7 % Immature Granulocyte % (Auto) 0.5 % Immature Granulocyte # (Auto) 0.07 K/uL Test 05/03/17 02:14 05/03/17 03:42 05/03/17 04:44 05/03/17 05:43 Bedside Glucose 175 mg/dl 185 mg/dl 174 mg/dl 149 mg/dl Test 05/03/17 06:09 Venous Blood pH 7.40 Sodium Level 133 mmol/L Potassium Level 4.0 mmol/L Chloride Level 99 mmol/L Carbon Dioxide Level 21 mmol/L Anion Gap 13.0 mmol/L Blood Urea Nitrogen 58 mg/dl Creatinine 8.82 mg/dl Est Creatinine Clear Calc Drug Dose 10.3 ml/min Estimated GFR () 7.2 Estimated GFR (Non- 6.2 BUN/Creatinine Ratio 6.5 Random Glucose 155 mg/dl Calcium Level 9.2 mg/dl Phosphorus Level 4.1 mg/dl Magnesium Level 2.5 mg/dl
[2017-05-03] MEDS: AMLODIPINE BESYLATE 5 MG TAB PO SCH (12:36)
[2017-05-03] MEDS: FUROSEMIDE 80 MG TAB PO SCH ×2 (12:37→18:08)
[2017-05-03] MEDS: METOPROLOL TARTRATE 50 MG TAB PO SCH ×2 (12:37→18:08)
[2017-05-03] MEDS: CLOPIDOGREL BISULFATE 75 MG TAB PO SCH (13:04)
--- NOTE | 2017-05-03 13:55 | Pharmacy Progress Note ---
Pharmacy Glycemic Short Note 2 Date of Service May 03, 2017. OUTPATIENT ANTIDIABETIC REGIMEN: * NovoLog SQ insulin pump * Follows with Dr Sumner/[facility] * Basal rates ~ 14.4 units/day * Bolus CF = 20mg/dl/unit * CR = 1 unit for every 12g CHO consumed ASSESSMENT: * Pt continues on IV insulin infusion for baseline T1DM and steroid induced hyperglycemia. * Solumedrol stopped and changed to prednisone today * RN found pt own insulin pump in patient belongings. is to bring in supplies to reconnect his insulin pump. * Will transition from IV to SQ insulin pump when pump and supplies are available. * IV insulin infusion rates are stable around 3-4 units/hr. * PO intake is very poor PLAN FOR INPATIENT GLYCEMIC CONTROL: * Continue IV insulin infusion per protocol * Goal range 140 - 200 mg/dl * Bolus insulin * Nutritional / Prandial insulin per carb ratio as determined by IV insulin infusion calculator * Will transition to SQ insulin (pump vs basal bolus) today when it is available.
[2017-05-03] MEDS ORDERED: COUGH DROP (SUGAR FREE) LOZ 24 LOZ/1 BOX LOZ ONE (15:02)
[2017-05-03] MEDS ORDERED: LANTUS PER UNIT CHARGE SQ ONE (18:00)
[2017-05-03] MEDS: ATORVASTATIN 40 MG TAB PO SCH (19:05)
[2017-05-03] MEDS: BuPROPion SR 100 MG TABCR PO SCH (20:17)
[2017-05-03] MEDS: GABAPENTIN 100 MG CAP PO SCH (20:17)
--- NOTE | 2017-05-03 21:10 | Family Medicine Progress Note ---
Progress Note Date of Service May 03, 2017. Subjective Pt evaluation today including: conversation w/ patient, physical exam, chart review, lab review, review of studies Pain: No pain reported this morning Voiding: no voiding problems, no incontinence Patient is reporting feeling better today but is still significantly fatigued. The staff was able to locate the patient's insulin pump and have contacted his regarding bringing in his materials for pump utilization. Patient was undergoing dialysis this morning during examination and is more responsive to questions this morning. Additional Comments: See HPI for pertinent positives and negatives. A total of ten systems were reviewed and were otherwise negative. Medications Current Inpatient Medications Medications (Trade) Dose Ordered Sig/Etta Route Start Time Stop Time Status Last Admin Dose Admin Al Hydrox/Mg Hydrox/Simethicone (Maalox Max Susp) 15 ml Q4H PRN PO 04/29/17 21:30 05/29/17 21:29 Magnesium Hydroxide (Milk Of Magnesia Susp) 30 ml Q12H PRN PO 04/29/17 21:30 05/29/17 21:29 Ondansetron HCl (Zofran Inj) 4 mg Q6H PRN IV 04/29/17 21:30 05/29/17 21:29 Polyethylene (Miralax Powder Packet) 17 gm DAILY PRN PO 04/29/17 21:30 05/29/17 21:29 Albuterol/ Ipratropium (Duoneb) 3 ml QIDR INH 04/30/17 08:00 05/30/17 07:59 05/03/17 19:16 3 ML Glucose (Glucose 40% Gel) 15-30 GRAMS 15 GRAMS... UD PRN PO 04/29/17 22:00 05/29/17 21:59 Glucose (Glucose Chew Tab) 4-8 Tablets 4 Tabl... UD PRN PO 04/29/17 22:00 05/29/17 21:59 Dextrose (Dextrose 50% 50ML Syringe) 25-50ML OF 50% DW IV FOR... UD PRN IV 04/29/17 22:00 05/29/17 21:59 Glucagon (Glucagon Inj) 1 mg UD PRN SQ 04/29/17 22:00 05/29/17 21:59 Atorvastatin Calcium (Lipitor Tab) 40 mg HS PO 04/30/17 21:00 05/30/17 20:59 Future hold 05/03/17 19:05 40 MG Bupropion HCl (Wellbutrin-Sr Tab) 200 mg QPM PO 04/30/17 21:00 05/30/17 20:59 Future hold Clopidogrel Bisulfate (plAVix TAB) 75 mg Q2D@0900 PO 04/30/17 09:00 05/30/17 08:59 Future hold 05/03/17 13:04 75 MG Furosemide (Lasix Tab) 80 mg BID17 PO 04/30/17 09:00 05/30/17 08:59 Future hold 05/03/17 18:08 80 MG Gabapentin (Neurontin Cap) 100 mg BID PO 04/30/17 09:00 05/30/17 08:59 Future hold Levothyroxine Sodium (Synthroid Tab) 112 mcg DAILYBB PO 04/30/17 06:00 05/30/17 05:59 Future hold Miscellaneous Information (Order Awaiting Action) 1 ea QS N/A 04/30/17 00:00 05/30/17 00:00 Miscellaneous Information (Order Awaiting Action) 1 ea QS N/A 04/30/17 00:00 05/30/17 00:00 Sevelamer HCl (Renagel Tab) 1,600 mg TID PO 04/30/17 09:00 05/30/17 08:59 Future hold 05/03/17 18:07 1,600 MG Miscellaneous Information (Order Awaiting Action) 1 ea QS N/A 04/30/17 00:00 05/30/17 00:00 Imipenem/ Cilastatin Sodium 200 mg/Dextrose 108 ml @ 108 mls/hr Q6H IV 04/30/17 08:00 05/07/17 07:59 05/03/17 19:05 108 MLS/HR Imipenem/ Cilastatin Sodium (Consult) 1 ea UD PRN N/A 04/30/17 09:00 05/30/17 08:59 Insulin Aspart (novoLOG ASPART) [facility] 04/30/17 12:00 05/30/17 11:59 Miscellaneous Information (Consult Glycemic Management Pharmacy) 1 ea UD PRN N/A 04/30/17 10:45 05/30/17 10:44 Insulin Human Regular 250 units/ Sodium Chloride 252.5 ml @ 0 mls/hr Q24H IV 04/30/17 11:00 05/30/17 10:59 05/03/17 20:16 2.4 MLS/HR Ioversol (Optiray 320) 100 ml UD PRN IV 04/30/17 13:45 05/04/17 13:44 Metoprolol Tartrate (Lopressor Tab) 50 mg BID PO 05/03/17 09:00 05/30/17 08:59 05/03/17 18:08 50 MG Amlodipine Besylate (Norvasc Tab) 2.5 mg Q48H PO 05/03/17 08:00 06/02/17 07:59 05/03/17 12:36 2.5 MG Prednisone (PredniSONE TAB) 40 mg QAM PO 05/03/17 09:00 06/02/17 08:59 05/03/17 08:41 40 MG Guaifenesin (Robitussin Sugar Free Syrup) 100 mg Q6H PRN PO 05/03/17 12:30 06/02/17 12:29 Miscellaneous Information (Pending Order) 1 ea QS N/A 05/04/17 00:00 06/03/17 00:00 Objective Vital Signs Date Time Temp Pulse Resp B/P (MAP) Pulse Ox O2 Delivery O2 Flow Rate FiO2 05/03/17 19:53 36.9 84 20 136/84 (101) 97 Nasal Cannula 3.0 05/03/17 19:18 74 16 93 Nasal Cannula 2.0 05/03/17 16:00 Nasal Cannula 2.0 05/03/17 15:15 77 16 97 Nasal Cannula 2.5 05/03/17 12:00 Nasal Cannula 6.0 05/03/17 11:44 37.0 84 18 138/82 (100) 95 Nasal Cannula 2.0 05/03/17 11:32 81 18 96 Nasal Cannula 2.5 05/03/17 10:10 36.5 84 151/68 (95) 05/03/17 10:00 79 148/69 05/03/17 09:45 81 157/77 05/03/17 09:30 81 154/71 05/03/17 09:15 85 164/83 05/03/17 09:00 81 159/85 05/03/17 08:45 80 165/85 05/03/17 08:30 81 162/87 05/03/17 08:19 36.8 66 18 149/68 (95) 96 05/03/17 08:15 74 166/87 05/03/17 08:00 Nasal Cannula 6.0 05/03/17 08:00 69 177/85 05/03/17 07:45 66 167/86 05/03/17 07:30 66 175/89 05/03/17 07:21 77 16 96 Nasal Cannula 3.0 05/03/17 07:15 68 175/91 05/03/17 07:00 79 173/84 05/03/17 06:45 76 171/62 05/03/17 06:30 88 160/61 05/03/17 06:15 72 164/80 05/03/17 06:00 72 160/92 05/03/17 05:50 36.7 71 157/82 (107) 05/03/17 04:00 Nasal Cannula 2.0 05/03/17 03:33 36.5 76 17 157/88 (111) 97 Nasal Cannula 2.0 05/03/17 00:01 Nasal Cannula 2.0 05/02/17 23:35 37.0 86 20 155/95 (115) 96 Nasal Cannula 2.0 05/02/17 22:20 71 98 35 Physical Exam General Appearance: WD/WN, no apparent distress Neck: supple, no carotid bruits Respiratory/Chest: chest non-tender, + crackles, + rales, + wheezing Cardiovascular: + systolic murmur (4/6 murmur) Abdomen: normal bowel sounds, non tender, soft Neurologic/Psychiatric: alert, oriented x 3 Laboratory Results Results Past 24 Hours Test 05/02/17 21:09 05/02/17 22:13 05/02/17 23:13 05/02/17 23:50 Range/Units Bedside Glucose 313 300 288 70-99 mg/dl White Blood Count 13.95 4.8-10.8 K/uL Red Blood Count 3.58 4.7-6.1 M/uL Hemoglobin 12.2 14.0-18.0 g/dL Hematocrit 36.6 42-52 % Mean Corpuscular Volume 102.2 80-100 fL Mean Corpuscular Hemoglobin 34.1 25-34 pg Mean Corpuscular Hemoglobin Concent 33.3 32-36 g/dl Platelet Count 227 130-400 K/uL Mean Platelet Volume 10.1 7.4-10.4 fL Neutrophils (%) (Auto) 88.9 % Lymphocytes (%) (Auto) 5.4 % Monocytes (%) (Auto) 5.0 % Eosinophils (%) (Auto) 0.1 % Basophils (%) (Auto) 0.1 % Neutrophils # (Auto) 12.41 1.4-6.5 K/uL Lymphocytes # (Auto) 0.75 1.2-3.4 K/uL Monocytes # (Auto) 0.70 0.11-0.59 K/uL Eosinophils # (Auto) 0.01 0-0.5 K/uL Basophils # (Auto) 0.01 0-0.2 K/uL RDW Standard Deviation 54.6 36.4-46.3 fL RDW Coefficient of Variation 14.7 11.5-14.5 % Immature Granulocyte % (Auto) 0.5 % Immature Granulocyte # (Auto) 0.07 0.00-0.02 K/uL Test 05/03/17 00:22 05/03/17 01:05 05/03/17 02:14 05/03/17 03:42 Range/Units Bedside Glucose 334 279 175 185 70-99 mg/dl Test 05/03/17 04:44 05/03/17 05:43 05/03/17 06:09 05/03/17 07:43 Range/Units Bedside Glucose 174 149 93 70-99 mg/dl Venous Blood pH 7.40 7.36-7.41 Sodium Level 133 136-145 mmol/L Potassium Level 4.0 3.5-5.1 mmol/L Chloride Level 99 98-107 mmol/L Carbon Dioxide Level 21 21-32 mmol/L Anion Gap 13.0 3-11 mmol/L Blood Urea Nitrogen 58 7-18 mg/dl Creatinine 8.82 0.60-1.40 mg/dl Est Creatinine Clear Calc Drug Dose 10.3 ml/min Estimated GFR () 7.2 Estimated GFR (Non- 6.2 BUN/Creatinine Ratio 6.5 10-20 Random Glucose 155 70-99 mg/dl Calcium Level 9.2 8.5-10.1 mg/dl Phosphorus Level 4.1 2.5-4.9 mg/dl Magnesium Level 2.5 1.8-2.4 mg/dl Test 05/03/17 08:11 05/03/17 08:25 05/03/17 08:42 05/03/17 08:55 Range/Units Bedside Glucose 94 111 125 136 70-99 mg/dl Test 05/03/17 09:14 05/03/17 10:10 05/03/17 11:18 05/03/17 13:07 Range/Units Bedside Glucose 172 203 190 249 70-99 mg/dl Test 05/03/17 14:02 05/03/17 15:06 05/03/17 16:14 05/03/17 17:17 Range/Units Bedside Glucose 258 205 203 200 70-99 mg/dl Test 05/03/17 19:55 Range/Units Bedside Glucose 225 70-99 mg/dl Assessment and Plan 51 year old male with a past medical history of DM, COPD, ESRD on dialysis, hx of PE, Bipolar and hypothyroidism that presented to the ED with acute loss of consciousness and changes on CXR concerning for a hospital acquired PNA/ infectious bronchiectasis Sepsis most likely secondary to infectious bronchiectasis/HAP and complicated by a history of severe tracheomalacia/ chronic bronchiectasis, COPD and positive resp culture with ESBL 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 XYLOSOXIDANS in 2016 - Prednisone 40mg PO Daily --> Previously on Methylpred 20 mg q8h IV - Today ID narrowed antibiotic spectrum to Imipenem --> Previously on Imipenem and Zyvox (5 days) Due to ESBL cultures on bronchoscopy (04/18/2017) - ID on board --> Will discuss duration of antibiotic therapy and requirement for IV antibiotics at home - Pulmonary consulted - Blood Cultures x 2 pending --> prelim negative - Duonebs qid - Home Ellipta held - Sputum Culture preliminarily negative DKA in setting of acute infection and no insulin pump; DM1 on insulin pump; stable on infusion pump - Glucose level currently well controlled - Continuing insulin drip --> Once Insulin pump materials are brought from home , will transition patient to insulin pump - Glycemic consult Elevated troponin, possible NSTEMI ACS II in light of septic picture - Troponin trending down --> Peak of 22, currently < 10 - Echo - No regional wall motion abnormalities, no significant changes - EKG NSR with no ST changes - Monitor on tele, heparin initiated - Echo August 2016: * There is mild concentric left ventricular hypertrophy with EF 55-65% * Grade I diastolic dysfunction, (abnormal relaxation pattern). * Moderate valvular aortic stenosis. * There is mild mitral stenosis. * Inferior wall from base to mid-ventricle is hypokinetic - CTA suboptimal but no PE visualized - Resume home Plavix ESRD secondary to diabetic nephropathy - Nephrology consulted - Dialysis in Tuesday, , and Tuesday - Daily BMP and Monitor I/O's - Resume home Sevelamer 1600 mg tid - Holding home Sensipar 20 mg daily HTN/HLD/ PAD - Lopressor 25mg BID today and then resume home dose of Lopressor 50mg BID tomorrow - Tomorrow will resume Amlodipine 2.5 mg 4x/wk, plavix 75 mg daily, and Atorvastatin 40 mg daily Chronic diastolic CHF - Lasix 20mg PO Daily Hypothyroidism - Resume home Synthroid 112 mcg PO qdaily Peripheral neuropathy - Resume Gabapentin 100 mg bid Mood Disorder - Resume home Wellbutrin, previously held due to interaction with Linezolid which has subsequently been discontinued DVT prophylaxis - Heparin 5,000 units Sq daily Code Status - Full Resuscitation Resident Tracking Resident Involvement: Resident Care Provided Care Provided: Adult Hospital Medicine
[2017-05-03] MEDS: GUAIFENESIN SUGAR FREE 100 MG/5 ML UDC PO PRN (22:23)
[2017-05-04] VITALS (12 sets, daily range): BP systolic 123–180; BP diastolic 67–102; PULSE 67–89; TEMP 36.7–37.2; O2SAT 91–99
[2017-05-04] MEDS: INCRUSE ELLIPTA~ORDER AWAITING ACTION SCH ×4 (00:53→23:22)
[2017-05-04] MEDS: SENSIPAR~ORDER AWAITING ACTION SCH ×4 (00:53→23:28)
[2017-05-04] MEDS: IMIPENEM-CILASTATIN 200 MG in DEXTROSE 5% 100ML 100 ML IV SCH ×3 (02:24→13:12)
[2017-05-04] MEDS: LEVOTHYROXINE 112 MCG TAB PO SCH (06:03)
[2017-05-04 06:54] LABS: BASO % 0.1 %; BASO ABS # 0.01 K/uL (0-0.2); EOS % 0.1 %; EOS ABS # 0.01 K/uL (0-0.5); HEMATOCRIT 36.4 % (42-52); HEMOGLOBIN 12.2 g/dL (14.0-18.0); IG# 0.06 K/uL (0.00-0.02); LYMPH % 12.1 %; LYMPH ABS # 1.65 K/uL (1.2-3.4); MEAN CELL VOLUME 102.5 fL (80-100); MEAN CORPUSCULAR HEMOGLOBIN 34.4 pg (25-34); MEAN CORPUSCULAR HGB CONC 33.5 g/dl (32-36); MEAN PLATELET VOLUME 9.9 fL (7.4-10.4); MONO % 10.8 %; MONO ABS # 1.47 K/uL (0.11-0.59); NEUT % 76.5 %; NEUT ABS # 10.39 K/uL (1.4-6.5); PLATELET COUNT 184 K/uL (130-400); RED CELL DISTRIBUTION WIDTH CV 14.6 % (11.5-14.5); RED CELL DISTRIBUTION WIDTH SD 55.1 fL (36.4-46.3); WHITE BLOOD COUNT 13.59 K/uL (4.8-10.8)
[2017-05-04] MEDS: ALBUT/IPRATROP 3MG/0.5MG NEB 3 ML VIAL INH SCH ×3 (07:22→14:49)
[2017-05-04 07:43] LABS: CALCIUM 9.1 mg/dl (8.5-10.1); CREATININE 6.84 mg/dl (0.60-1.40)
[2017-05-04] MEDS: INSULIN ASPART 100 UNITS/ML 3 ML PEN SC SCH ×4 (08:00→21:33)
[2017-05-04] MEDS: GABAPENTIN 100 MG CAP PO SCH ×2 (08:06→21:26)
[2017-05-04] MEDS: SEVELAMER HYDROCH 800 MG TAB PO SCH ×3 (08:06→21:26)
[2017-05-04] MEDS: FUROSEMIDE 80 MG TAB PO SCH ×2 (08:06→16:39)
[2017-05-04] MEDS: GUAIFENESIN SUGAR FREE 100 MG/5 ML UDC PO PRN (08:07)
[2017-05-04] MEDS: METOPROLOL TARTRATE 50 MG TAB PO SCH ×2 (08:07→21:26)
[2017-05-04] MEDS ORDERED: DC IV INSULIN INFUSION ONE (11:00)
--- NOTE | 2017-05-04 11:07 | Progress Note ---
Subjective Date of Service: May 04, 2017. Subjective Pt evaluation today including: conversation w/ patient, physical exam, chart review, lab review pt seen in followup, doing much better. OOB to chair, mental status back to baseline. on RA. no cough, no sob, no f/c. remains on HD. wbc improving, blood cultures negative. afebrile overnight. denies cough, sob cp, ate breakfast. states he is feeling much better but not yet 100%. All remaining ros reviewed and are negative. Problem List Medical Problems: (1) Bronchitis Status: Acute (2) Change in mental status Status: Acute (3) Contusion of head Status: Acute (4) End stage renal disease Status: Acute (5) ESRD (end stage renal disease) on dialysis Status: Acute (6) Fall Status: Acute (7) Hypoglycemia Status: Acute (8) Hypoglycemia Status: Acute (9) Hypoglycemia Status: Acute (10) Hypoglycemia Status: Acute (11) Hypoglycemia Status: Acute (12) Hypoglycemia Status: Acute (13) Hypokalemia Status: Acute (14) Hypoxemia Status: Acute (15) Leukocytosis Status: Acute (16) Right lower lobe pneumonia Status: Acute (17) Right middle lobe pneumonia Status: Acute (18) Sepsis Status: Acute (19) Sepsis Status: Acute (20) Syncope Status: Acute (21) Traumatic hematoma of forehead Status: Acute Objective Vital Signs Date Time Temp Pulse Resp B/P (MAP) Pulse Ox O2 Delivery O2 Flow Rate FiO2 05/04/17 09:32 96 Nasal Cannula 2.0 05/04/17 08:16 36.8 81 16 138/83 (101) 96 Nasal Cannula 2.0 05/04/17 08:00 Nasal Cannula 2.0 05/04/17 07:22 67 16 97 Nasal Cannula 2.0 05/04/17 04:00 Nasal Cannula 2.0 05/04/17 03:30 37.2 73 17 141/82 (101) 99 Nasal Cannula 2.0 05/04/17 00:01 Nasal Cannula 2.0 05/03/17 23:35 36.9 73 22 152/88 (109) 98 Nasal Cannula 2.0 05/03/17 20:00 Nasal Cannula 2.0 05/03/17 19:53 36.9 84 20 136/84 (101) 97 Nasal Cannula 3.0 05/03/17 19:18 74 16 93 Nasal Cannula 2.0 05/03/17 16:00 Nasal Cannula 2.0 05/03/17 15:15 77 16 97 Nasal Cannula 2.5 05/03/17 12:00 Nasal Cannula 2.0 05/03/17 11:44 37.0 84 18 138/82 (100) 95 Nasal Cannula 2.0 05/03/17 11:32 81 18 96 Nasal Cannula 2.5 Physical Exam General Appearance: WD/WN, no apparent distress Eyes: normal inspection, EOMI Neck: supple Respiratory/Chest: lungs clear, normal breath sounds, no respiratory distress Cardiovascular: regular rate, rhythm, + systolic murmur Abdomen: non tender, soft Extremities: non-tender, no pedal edema Neurologic/Psychiatric: alert, oriented x 3 Skin: normal color Laboratory Results Item Value Date Time Blood Culture - Preliminary Resulted 04/29/17 1853 Blood NO GROWTH TO DATE. Blood Culture - Preliminary Resulted 04/29/17 1935 Blood NO GROWTH TO DATE. Last 24 Hours Test 05/03/17 11:18 05/03/17 13:07 05/03/17 14:02 05/03/17 15:06 Bedside Glucose 190 mg/dl 249 mg/dl 258 mg/dl 205 mg/dl Test 05/03/17 16:14 05/03/17 17:17 05/03/17 19:55 05/03/17 21:04 Bedside Glucose 203 mg/dl 200 mg/dl 225 mg/dl 170 mg/dl Test 05/03/17 22:12 05/03/17 23:02 05/04/17 00:05 05/04/17 00:58 Bedside Glucose 148 mg/dl 125 mg/dl 115 mg/dl 126 mg/dl Test 05/04/17 02:00 05/04/17 03:02 05/04/17 03:56 05/04/17 04:56 Bedside Glucose 137 mg/dl 135 mg/dl 139 mg/dl 140 mg/dl Test 05/04/17 06:01 05/04/17 06:42 05/04/17 06:58 05/04/17 09:08 Bedside Glucose 139 mg/dl 119 mg/dl 84 mg/dl White Blood Count 13.59 K/uL Red Blood Count 3.55 M/uL Hemoglobin 12.2 g/dL Hematocrit 36.4 % Mean Corpuscular Volume 102.5 fL Mean Corpuscular Hemoglobin 34.4 pg Mean Corpuscular Hemoglobin Concent 33.5 g/dl Platelet Count 184 K/uL Mean Platelet Volume 9.9 fL Neutrophils (%) (Auto) 76.5 % Lymphocytes (%) (Auto) 12.1 % Monocytes (%) (Auto) 10.8 % Eosinophils (%) (Auto) 0.1 % Basophils (%) (Auto) 0.1 % Neutrophils # (Auto) 10.39 K/uL Lymphocytes # (Auto) 1.65 K/uL Monocytes # (Auto) 1.47 K/uL Eosinophils # (Auto) 0.01 K/uL Basophils # (Auto) 0.01 K/uL RDW Standard Deviation 55.1 fL RDW Coefficient of Variation 14.6 % Immature Granulocyte % (Auto) 0.4 % Immature Granulocyte # (Auto) 0.06 K/uL Venous Blood pH 7.43 Sodium Level 132 mmol/L Potassium Level 4.0 mmol/L Chloride Level 97 mmol/L Carbon Dioxide Level 24 mmol/L Anion Gap 11.0 mmol/L Blood Urea Nitrogen 48 mg/dl Creatinine 6.84 mg/dl Est Creatinine Clear Calc Drug Dose 13.2 ml/min Estimated GFR () 9.8 Estimated GFR (Non- 8.5 BUN/Creatinine Ratio 7.0 Random Glucose 145 mg/dl Calcium Level 9.1 mg/dl Assessment and Plan (1) Pneumonia Assessment & Plan: day 5/7 abx for suspected pna, ? aspiration. cultures negative. discussed with primary, pt can complete course of abx with po augmentin if d/c prior to end of course of abx. Continued [facility] stay due to: abnormal vital signs, multiple IV medications needed, other Discharge planning: uncertain
--- NOTE | 2017-05-04 11:41 | Nephrology Progress Note ---
Nephrology Progress Note Date of Service May 04, 2017. Chief Complaint Follow-up for end-stage renal disease on hemodialysis. Subjective Gino was seen and examined in his room this morning. Overall doing better, no speech difficulty. Blood pressure electrolyte and volume status acceptable. Had dialysis yesterday. Review of Systems A complete review of systems was performed. Pertinent positives are noted above. All other systems are negative. Vital Signs Last 8 Hrs Date Time Temp Pulse Resp B/P (MAP) Pulse Ox O2 Delivery O2 Flow Rate FiO2 05/04/17 08:16 36.8 81 16 138/83 (101) 96 Nasal Cannula 2.0 05/04/17 07:22 67 16 97 Nasal Cannula 2.0 05/04/17 04:00 Nasal Cannula 2.0 05/04/17 03:30 37.2 73 17 141/82 (101) 99 Nasal Cannula 2.0 Last Recorded Weight Weight (Kilograms): 84.000 Physical Exam GENERAL: Middle-aged male , AAA x 3, not in any distress. NECK: Supple, no JVD. RESPIRATORY: Normal breathing efforts, no accessory muscle use, coarse crackles bilaterally. CARDIOVASCULAR: S1, S2 normal, rate rhythm regular. EXTREMITY: No lower extremity edema NEURO: speech fluent. PSYCHIATRY: Normal mood and judgment Family History FH: heart disease Negative for CKD / ESRD Social History Smoking Status: Current every day smoker Smokeless Tobacco Use: No Alcohol Use: none Drug Use: none Marital Status: Housing Status: lives with family Occupation: disabled . Medically disabled. Former smoker (Quit 2013) Laboratory Results Past 24 Hours 05/04/17 06:42 Red Blood Count 3.55, Mean Corpuscular Volume 102.5, Mean Corpuscular Hemoglobin 34.4, Mean Corpuscular Hemoglobin Concent 33.5, Mean Platelet Volume 9.9, Neutrophils (%) (Auto) 76.5, Lymphocytes (%) (Auto) 12.1, Monocytes (%) ( Auto) 10.8, Eosinophils (%) (Auto) 0.1, Basophils (%) (Auto) 0.1, Neutrophils # (Auto) 10.39, Lymphocytes # (Auto) 1.65, Monocytes # (Auto) 1.47, Eosinophils # (Auto) 0.01, Basophils # (Auto) 0.01 05/04/17 06:42 Test 05/03/17 08:42 05/03/17 08:55 05/03/17 09:14 05/03/17 10:10 Bedside Glucose 125 mg/dl (70-99) 136 mg/dl (70-99) 172 mg/dl (70-99) 203 mg/dl (70-99) Test 05/03/17 11:18 05/03/17 13:07 05/03/17 14:02 05/03/17 15:06 Bedside Glucose 190 mg/dl (70-99) 249 mg/dl (70-99) 258 mg/dl (70-99) 205 mg/dl (70-99) Test 05/03/17 16:14 05/03/17 17:17 05/03/17 19:55 05/03/17 21:04 Bedside Glucose 203 mg/dl (70-99) 200 mg/dl (70-99) 225 mg/dl (70-99) 170 mg/dl (70-99) Test 05/03/17 22:12 05/03/17 23:02 05/04/17 00:05 05/04/17 00:58 Bedside Glucose 148 mg/dl (70-99) 125 mg/dl (70-99) 115 mg/dl (70-99) 126 mg/dl (70-99) Test 05/04/17 02:00 05/04/17 03:02 05/04/17 03:56 05/04/17 04:56 Bedside Glucose 137 mg/dl (70-99) 135 mg/dl (70-99) 139 mg/dl (70-99) 140 mg/dl (70-99) Test 05/04/17 06:01 05/04/17 06:42 05/04/17 06:58 Bedside Glucose 139 mg/dl (70-99) 119 mg/dl (70-99) White Blood Count 13.59 K/uL (4.8-10.8) Red Blood Count 3.55 M/uL (4.7-6.1) Hemoglobin 12.2 g/dL (14.0-18.0) Hematocrit 36.4 % (42-52) Mean Corpuscular Volume 102.5 fL (80-100) Mean Corpuscular Hemoglobin 34.4 pg (25-34) Mean Corpuscular Hemoglobin Concent 33.5 g/dl (32-36) Platelet Count 184 K/uL (130-400) Mean Platelet Volume 9.9 fL (7.4-10.4) Neutrophils (%) (Auto) 76.5 % Lymphocytes (%) (Auto) 12.1 % Monocytes (%) (Auto) 10.8 % Eosinophils (%) (Auto) 0.1 % Basophils (%) (Auto) 0.1 % Neutrophils # (Auto) 10.39 K/uL (1.4-6.5) Lymphocytes # (Auto) 1.65 K/uL (1.2-3.4) Monocytes # (Auto) 1.47 K/uL (0.11-0.59) Eosinophils # (Auto) 0.01 K/uL (0-0.5) Basophils # (Auto) 0.01 K/uL (0-0.2) RDW Standard Deviation 55.1 fL (36.4-46.3) RDW Coefficient of Variation 14.6 % (11.5-14.5) Immature Granulocyte % (Auto) 0.4 % Immature Granulocyte # (Auto) 0.06 K/uL (0.00-0.02) Venous Blood pH 7.43 (7.36-7.41) Anion Gap 11.0 mmol/L (3-11) Est Creatinine Clear Calc Drug Dose 13.2 ml/min Estimated GFR () 9.8 Estimated GFR (Non- 8.5 BUN/Creatinine Ratio 7.0 (10-20) Calcium Level 9.1 mg/dl (8.5-10.1) Allergies Coded Allergies: Codeine (Verified Allergy, Intermediate, NAUSEA AND VOMITING, 04/18/17) QUESTIONABLE ALLERGY, STILL QUESTIONABLE BUT D/C SHONDA WITH COD 02/20/17 Tigecycline (Verified Allergy, Mild, ?RASH, 04/18/17) Clindamycin (Verified Allergy, Unknown, Unknown, 04/29/17) Penicillins (Verified Allergy, Unknown, PT HAS HAD MEFOXIN W/OUT A PROBLEM , 04/18/17) HAD MEFOXIN W/O PROBLEM Ciprofloxacin (Verified Adverse Reaction, Intermediate, nausea,vomiting, generalized weakness, 04/18/17) Morphine (Verified Adverse Reaction, Intermediate, TREMBLING,NAUSEA AND VOMITING, 04/18/17) Opioid Analgesics (Verified Adverse Reaction, Intermediate, "ALL RX PAIN MEDS CAUSE SEVERE NAUSEA", 04/18/17) Levofloxacin (Verified Adverse Reaction, Mild, Cipro/Levaquin (IV & po) = N & V, 04/18/17) Oxycodone (Verified Adverse Reaction, Unknown, N/V/D, 04/18/17) SPOKE WITH PATIENT ON 07/29/15, DOES NOT REMEMBER ANY DIFFICULTY BREATHING JUST HIT HIM HARD. Medications Current Inpatient Medications Medications (Trade) Dose Ordered Sig/Etta Route Start Time Stop Time Status Last Admin Dose Admin Al Hydrox/Mg Hydrox/Simethicone (Maalox Max Susp) 15 ml Q4H PRN PO 04/29/17 21:30 05/29/17 21:29 Magnesium Hydroxide (Milk Of Magnesia Susp) 30 ml Q12H PRN PO 04/29/17 21:30 05/29/17 21:29 Ondansetron HCl (Zofran Inj) 4 mg Q6H PRN IV 04/29/17 21:30 05/29/17 21:29 Polyethylene (Miralax Powder Packet) 17 gm DAILY PRN PO 04/29/17 21:30 05/29/17 21:29 Albuterol/ Ipratropium (Duoneb) 3 ml QIDR INH 04/30/17 08:00 05/30/17 07:59 05/04/17 07:22 3 ML Glucose (Glucose 40% Gel) 15-30 GRAMS 15 GRAMS... UD PRN PO 04/29/17 22:00 05/29/17 21:59 Glucose (Glucose Chew Tab) 4-8 Tablets 4 Tabl... UD PRN PO 04/29/17 22:00 05/29/17 21:59 Dextrose (Dextrose 50% 50ML Syringe) 25-50ML OF 50% DW IV FOR... UD PRN IV 04/29/17 22:00 05/29/17 21:59 Glucagon (Glucagon Inj) 1 mg UD PRN SQ 04/29/17 22:00 05/29/17 21:59 Atorvastatin Calcium (Lipitor Tab) 40 mg HS PO 04/30/17 21:00 05/30/17 20:59 Future hold 05/03/17 19:05 40 MG Bupropion HCl (Wellbutrin-Sr Tab) 200 mg QPM PO 04/30/17 21:00 05/30/17 20:59 Future hold Clopidogrel Bisulfate (plAVix TAB) 75 mg Q2D@0900 PO 04/30/17 09:00 05/30/17 08:59 Future hold 05/03/17 13:04 75 MG Furosemide (Lasix Tab) 80 mg BID17 PO 04/30/17 09:00 05/30/17 08:59 Future hold 05/04/17 08:06 80 MG Gabapentin (Neurontin Cap) 100 mg BID PO 04/30/17 09:00 05/30/17 08:59 Future hold 05/04/17 08:06 100 MG Levothyroxine Sodium (Synthroid Tab) 112 mcg DAILYBB PO 04/30/17 06:00 05/30/17 05:59 Future hold 05/04/17 06:03 112 MCG Miscellaneous Information (Order Awaiting Action) 1 ea QS N/A 04/30/17 00:00 05/30/17 00:00 Miscellaneous Information (Order Awaiting Action) 1 ea QS N/A 04/30/17 00:00 05/30/17 00:00 Sevelamer HCl (Renagel Tab) 1,600 mg TID PO 04/30/17 09:00 05/30/17 08:59 Future hold 05/04/17 08:06 1,600 MG Miscellaneous Information (Order Awaiting Action) 1 ea QS N/A 04/30/17 00:00 05/30/17 00:00 Imipenem/ Cilastatin Sodium 200 mg/Dextrose 108 ml @ 108 mls/hr Q6H IV 04/30/17 08:00 05/07/17 07:59 05/04/17 08:05 108 MLS/HR Imipenem/ Cilastatin Sodium (Consult) 1 ea UD PRN N/A 04/30/17 09:00 05/30/17 08:59 Insulin Aspart (novoLOG ASPART) SLIDING SCALE [facility] 04/30/17 12:00 05/04/17 10:00 Miscellaneous Information (Consult Glycemic Management Pharmacy) 1 ea UD PRN N/A 04/30/17 10:45 05/30/17 10:44 Insulin Human Regular 250 units/ Sodium Chloride 252.5 ml @ 0 mls/hr Q24H IV 04/30/17 11:00 05/04/17 11:00 05/03/17 23:14 1.5 MLS/HR Ioversol (Optiray 320) 100 ml UD PRN IV 04/30/17 13:45 05/04/17 13:44 Metoprolol Tartrate (Lopressor Tab) 50 mg BID PO 05/03/17 09:00 05/30/17 08:59 05/04/17 08:07 50 MG Amlodipine Besylate (Norvasc Tab) 2.5 mg Q48H PO 05/03/17 08:00 06/02/17 07:59 05/03/17 12:36 2.5 MG Prednisone (PredniSONE TAB) 40 mg QAM PO 05/03/17 09:00 06/02/17 08:59 05/04/17 08:07 40 MG Guaifenesin (Robitussin Sugar Free Syrup) 100 mg Q6H PRN PO 05/03/17 12:30 06/02/17 12:29 05/04/17 08:07 100 MG Insulin Aspart (novoLOG ASPART) SLIDING SCALE ACHS SC 05/04/17 11:00 06/03/17 10:59 Miscellaneous Information (Dc Iv Insulin Infusion) 1 ea TODAY@1100 ONCE N/A 05/04/17 11:00 05/04/17 11:01 Insulin Glargine (Lantus Solostar Pen) 25 units QDD SC 05/04/17 16:45 06/03/17 16:44 Impression (1) Altered level of consciousness (2) Sepsis (3) Hypotension arterial (4) Tracheomalacia (5) End-stage renal disease on hemodialysis Patient admitted to the hospital w/ presumed sepsis syndrome. He has a history of severe tracheal malacia with chronic bronchiectasis. He is now on broad spectrum antibiotics. Blood cultures are pending. CXR with mild congestive changes and bibasilar infiltrates PMH - ESRD due to diabetic nephropathy on IHD since 12/25 (HD TTS at [facility] - 4 hrs 2K 2Ca F180NR Qb 450 cc/min HCO3 34 EDW 83 kg), IDDM, HTN , PVD s/p R femoral artery bypass, anemia, hypothyroidism, hypercholesterolemia , bipolar disorder, COPD w/ severe tracheomalacia and chronic bronchiectasis ( quit smoking ~ 2013). Recommendations --Currently electrolyte, volume status and blood pressure acceptable. Next dialysis tomorrow as regular schedule. --Avoid further IV fluid --Hgb is acceptable. No acute indication for GINO at this time. --on broad spectrum antibiotics. Blood cultures are NGTD. Will follow
[2017-05-04] MEDS: CLOPIDOGREL BISULFATE 75 MG TAB PO SCH (12:07)
--- NOTE | 2017-05-04 12:21 | Pulmonology Progress Note ---
Pulmonary Progress Note Date of Service May 04, 2017. Attending Dr. Ojeda Subjective The patient was off oxygen during our conversation in noted no shortness of Breath. He did note that he was still very tired and intermittently confused but is overall status especially his mental abilities have improved dramatically in the last 24-48 hours. Objective Patient is sitting up in the chair answering of questions appropriately VS: Stable on room air during our conversation Resp: Rhonchi at the bases but improved wheezing throughout the lungs Card: S1-S2 with notable systolic murmur best appreciated left upper sternal border Abd: + BS soft non-tender Ext: no break down General: oriented X2 Studies Microbiology: MRSA Nasal Swab: negative Blood x2: no growth Pulmonary Microbiology Bronchial washing/right lower lobe 09/18/2014: Aurora albicans, other yeast species Bronchial washing/right and left lower lobe 08/01/2015: Achromobacter Xylosoxidans Bronchial washing/right and left lower lobe 08/01/2015: Yeast species Bronchial washing/right middle lobe 04/18/2017: Haemophilus influenzae beta lactamase negative, penicillium species Microbiology Left foot 04/06/2010: MSSA Right 10/09/2010: Citrobacter, Klebsiella pneumonia, Pseudomonas, alpha strep Right toe 11/25/2010: Bacteroides species, Shewanella Putrefaciens Toe 01/01/2011: Chronic bacterium, Bacteroides species Right foot 02/03/2011: Corynebacterium, coag-negative staph, achromobacter Xylosoxidans Deep toe 01/01/2011: Corynebacterium, Bacteroides species Toe 08/18/2011: Proteus mirabilis, staff ACOS aureus, corynebacterium Right foot 12/22/2011: MSSA, corynebacterium Right leg 02/21/2012: Coag-negative staph Right thigh 03/16/2012: Pseudomonas aeruginosa Right foot 06/28/2012: MRSA Right leg 09/12/2012: MSSA: Pseudomonas, MRSA Right foot 10/18/2012: MSSA, MRSA Right foot 05/25/2013: Pseudomonas aeruginosa Right foot 11/23/2013: MSSA Assessment & Plan 51-year-old gentleman admitted with altered mental status and sepsis: 1. Sepsis: Patient's overall status is improved dramatically with the last 24- 48 hours. He is notably stable on room air during our conversation at this time. Will continue to defer to ID as far as antibiotics. At this time I will order speech evaluation as the patient appears cognizant enough to perform. 2. Excessive Dynamic Airway Collapse (EDAC): The patient does not have classic tracheobronchial malacia. He has notable posterior wall weakness which creates the images currently seen on CT. This is currently being defined as EDAC and is treated with CPAP as much as tolerated by the patient. Data Medications: Current Inpatient Medications Medications (Trade) Dose Ordered Sig/Etta Route Start Time Stop Time Status Last Admin Dose Admin Al Hydrox/Mg Hydrox/Simethicone (Maalox Max Susp) 15 ml Q4H PRN PO 04/29/17 21:30 05/29/17 21:29 Magnesium Hydroxide (Milk Of Magnesia Susp) 30 ml Q12H PRN PO 04/29/17 21:30 05/29/17 21:29 Ondansetron HCl (Zofran Inj) 4 mg Q6H PRN IV 04/29/17 21:30 05/29/17 21:29 Polyethylene (Miralax Powder Packet) 17 gm DAILY PRN PO 04/29/17 21:30 05/29/17 21:29 Albuterol/ Ipratropium (Duoneb) 3 ml QIDR INH 04/30/17 08:00 05/30/17 07:59 05/04/17 11:15 3 ML Glucose (Glucose 40% Gel) 15-30 GRAMS 15 GRAMS... UD PRN PO 04/29/17 22:00 05/29/17 21:59 Glucose (Glucose Chew Tab) 4-8 Tablets 4 Tabl... UD PRN PO 04/29/17 22:00 05/29/17 21:59 Dextrose (Dextrose 50% 50ML Syringe) 25-50ML OF 50% DW IV FOR... UD PRN IV 04/29/17 22:00 05/29/17 21:59 Glucagon (Glucagon Inj) 1 mg UD PRN SQ 04/29/17 22:00 05/29/17 21:59 Atorvastatin Calcium (Lipitor Tab) 40 mg HS PO 04/30/17 21:00 05/30/17 20:59 Future hold 05/03/17 19:05 40 MG Bupropion HCl (Wellbutrin-Sr Tab) 200 mg QPM PO 04/30/17 21:00 05/30/17 20:59 Future hold Clopidogrel Bisulfate (plAVix TAB) 75 mg Q2D@0900 PO 04/30/17 09:00 05/30/17 08:59 Future hold 05/04/17 12:07 75 MG Furosemide (Lasix Tab) 80 mg BID17 PO 04/30/17 09:00 05/30/17 08:59 Future hold 05/04/17 08:06 80 MG Gabapentin (Neurontin Cap) 100 mg BID PO 04/30/17 09:00 05/30/17 08:59 Future hold 05/04/17 08:06 100 MG Levothyroxine Sodium (Synthroid Tab) 112 mcg DAILYBB PO 04/30/17 06:00 05/30/17 05:59 Future hold 05/04/17 06:03 112 MCG Miscellaneous Information (Order Awaiting Action) 1 ea QS N/A 04/30/17 00:00 05/30/17 00:00 Miscellaneous Information (Order Awaiting Action) 1 ea QS N/A 04/30/17 00:00 05/30/17 00:00 Sevelamer HCl (Renagel Tab) 1,600 mg TID PO 04/30/17 09:00 05/30/17 08:59 Future hold 05/04/17 08:06 1,600 MG Miscellaneous Information (Order Awaiting Action) 1 ea QS N/A 04/30/17 00:00 05/30/17 00:00 Imipenem/ Cilastatin Sodium 200 mg/Dextrose 108 ml @ 108 mls/hr Q6H IV 04/30/17 08:00 05/07/17 07:59 05/04/17 08:05 108 MLS/HR Imipenem/ Cilastatin Sodium (Consult) 1 ea UD PRN N/A 04/30/17 09:00 05/30/17 08:59 Miscellaneous Information (Consult Glycemic Management Pharmacy) 1 ea UD PRN N/A 04/30/17 10:45 05/30/17 10:44 Ioversol (Optiray 320) 100 ml UD PRN IV 04/30/17 13:45 05/04/17 13:44 Metoprolol Tartrate (Lopressor Tab) 50 mg BID PO 05/03/17 09:00 05/30/17 08:59 05/04/17 08:07 50 MG Amlodipine Besylate (Norvasc Tab) 2.5 mg Q48H PO 05/03/17 08:00 06/02/17 07:59 05/03/17 12:36 2.5 MG Prednisone (PredniSONE TAB) 40 mg QAM PO 05/03/17 09:00 06/02/17 08:59 05/04/17 08:07 40 MG Guaifenesin (Robitussin Sugar Free Syrup) 100 mg Q6H PRN PO 05/03/17 12:30 06/02/17 12:29 05/04/17 08:07 100 MG Insulin Aspart (novoLOG ASPART) SLIDING SCALE ACHS SC 05/04/17 11:00 06/03/17 10:59 05/04/17 12:08 4 UNITS Insulin Glargine (Lantus Solostar Pen) 25 units QDD SC 05/04/17 16:45 06/03/17 16:44 Vital Signs: Date Time Temp Pulse Resp B/P (MAP) Pulse Ox O2 Delivery O2 Flow Rate FiO2 05/04/17 11:46 36.9 89 16 123/67 (85) 95 05/04/17 11:38 Nasal Cannula 2.0 05/04/17 11:15 78 18 93 Room Air 05/04/17 09:32 96 Nasal Cannula 2.0 05/04/17 08:16 36.8 81 16 138/83 (101) 96 Nasal Cannula 2.0 05/04/17 08:00 Nasal Cannula 2.0 05/04/17 07:22 67 16 97 Nasal Cannula 2.0 05/04/17 04:00 Nasal Cannula 2.0 05/04/17 03:30 37.2 73 17 141/82 (101) 99 Nasal Cannula 2.0 05/04/17 00:01 Nasal Cannula 2.0 05/03/17 23:35 36.9 73 22 152/88 (109) 98 Nasal Cannula 2.0 05/03/17 20:00 Nasal Cannula 2.0 05/03/17 19:53 36.9 84 20 136/84 (101) 97 Nasal Cannula 3.0 05/03/17 19:18 74 16 93 Nasal Cannula 2.0 05/03/17 16:00 Nasal Cannula 2.0 05/03/17 15:15 77 16 97 Nasal Cannula 2.5 Laboratory Results: Last 24 Hours Test 05/03/17 13:07 05/03/17 14:02 05/03/17 15:06 05/03/17 16:14 Bedside Glucose 249 mg/dl 258 mg/dl 205 mg/dl 203 mg/dl Test 05/03/17 17:17 05/03/17 19:55 05/03/17 21:04 05/03/17 22:12 Bedside Glucose 200 mg/dl 225 mg/dl 170 mg/dl 148 mg/dl Test 05/03/17 23:02 05/04/17 00:05 05/04/17 00:58 05/04/17 02:00 Bedside Glucose 125 mg/dl 115 mg/dl 126 mg/dl 137 mg/dl Test 05/04/17 03:02 05/04/17 03:56 05/04/17 04:56 05/04/17 06:01 Bedside Glucose 135 mg/dl 139 mg/dl 140 mg/dl 139 mg/dl Test 05/04/17 06:42 05/04/17 06:58 05/04/17 09:08 05/04/17 10:19 White Blood Count 13.59 K/uL Red Blood Count 3.55 M/uL Hemoglobin 12.2 g/dL Hematocrit 36.4 % Mean Corpuscular Volume 102.5 fL Mean Corpuscular Hemoglobin 34.4 pg Mean Corpuscular Hemoglobin Concent 33.5 g/dl Platelet Count 184 K/uL Mean Platelet Volume 9.9 fL Neutrophils (%) (Auto) 76.5 % Lymphocytes (%) (Auto) 12.1 % Monocytes (%) (Auto) 10.8 % Eosinophils (%) (Auto) 0.1 % Basophils (%) (Auto) 0.1 % Neutrophils # (Auto) 10.39 K/uL Lymphocytes # (Auto) 1.65 K/uL Monocytes # (Auto) 1.47 K/uL Eosinophils # (Auto) 0.01 K/uL Basophils # (Auto) 0.01 K/uL RDW Standard Deviation 55.1 fL RDW Coefficient of Variation 14.6 % Immature Granulocyte % (Auto) 0.4 % Immature Granulocyte # (Auto) 0.06 K/uL Venous Blood pH 7.43 Sodium Level 132 mmol/L Potassium Level 4.0 mmol/L Chloride Level 97 mmol/L Carbon Dioxide Level 24 mmol/L Anion Gap 11.0 mmol/L Blood Urea Nitrogen 48 mg/dl Creatinine 6.84 mg/dl Est Creatinine Clear Calc Drug Dose 13.2 ml/min Estimated GFR () 9.8 Estimated GFR (Non- 8.5 BUN/Creatinine Ratio 7.0 Random Glucose 145 mg/dl Calcium Level 9.1 mg/dl Bedside Glucose 119 mg/dl 84 mg/dl 92 mg/dl Test 05/04/17 11:11 Bedside Glucose 99 mg/dl
--- NOTE | 2017-05-04 15:01 | DIAGNOSTIC IMAGING REPORT ---
VIDEO SWALLOW HISTORY: Pneumonia. Possible aspiration pneumonia TECHNIQUE: Video fluoroscopic evaluation of swallowing was performed in the AP and lateral projections by the speech pathology staff. The patient is fed nectar-thick and thin liquid barium, a barium coated wafer, and barium pudding. FLUOROSCOPY TIME: 2.3 minutes. A cine loop was submitted.. COMPARISON STUDY: None. FINDINGS: There is normal hyoid excursion and epiglottic deflection. No significant penetration or aspiration identified. Swallowing function is within normal limits. IMPRESSION: 1. No aspiration identified. 2. Please see the speech pathologist report for detailed findings and recommendations. Electronically signed by: Vance Henriquez M.D. 05/04/2017 3:00 PM Dictated Date/Time: 05/04/2017 2:59 PM
--- NOTE | 2017-05-04 15:11 | Pharmacy Progress Note ---
Pharmacy Glycemic Short Note 2 Date of Service May 04, 2017. OUTPATIENT ANTIDIABETIC REGIMEN: * NovoLog SQ insulin pump * Follows with Dr Sumner/[facility] * Basal rates ~ 14.4 units/day * Bolus CF = 20mg/dl/unit * CR = 1 unit for every 12g CHO consumed * A1c of 6% is somewhat unreliable secondary to HD and altered RBC turnover rate. Regardless, it is likely somewhat accurate as patient has frequent hypoglycemia and over-treats/over boluses on his pump. Pt likes to maintain A1c of 6% despite realistic patient specific goal A1c around 8% ASSESSMENT: * Pt transitioned from IV insulin infusion to SQ basal bolus insulin regimen last night. * Pt was going to transition from IV to outpatient pump but instead was changed to SQ basal bolus secondary to concerns on his ability to manage his pump, especially with prednisone on board. * Order was for drip to stop whenever held per calculator after the dose of Lantus 25 units given. IV insulin infusion continued all night and was eventually held this morning when BSG 119, 89 mg/dl. * BSGs all remain below 100 mg/dl since stopping IV insulin infusion. Will empirically reduce next Lantus dose to prevent hypoglycemia. * Solumedrol stopped on 12 PM and changed to prednisone daily on 05/03 * PO intake remains poor PLAN FOR INPATIENT GLYCEMIC CONTROL: * Discontinue IV insulin infusion * Basal insulin * Lantus 25 units SQ Q24hrs - dose being given with dinner * Bolus insulin * NovoLog ACHS. Additional checks at 0000 & 0400 to provide extra insulin coverage if needed for lowered SQ Lantus dose today. * Goal Range 110-140 mg/dl * Correction Factor: 25mg/dl/unit * Nutritional / Prandial insulin per carb ratio of 1 unit for every 9g CHO consumed
[2017-05-04] MEDS ORDERED: INSULIN GLARGINE SOLOSTAR 100 UNITS/ML 3 ML PEN SC SCH (16:45)
[2017-05-04] MEDS: INSULIN GLARGINE SOLOSTAR 100 UNITS/ML 3 ML PEN SC SCH (16:45)
--- NOTE | 2017-05-04 16:55 | Family Medicine Progress Note ---
Progress Note Date of Service May 04, 2017. Subjective Pt evaluation today including: conversation w/ patient, physical exam, chart review, lab review Pain: Denies any pain today Voiding: no voiding problems, no incontinence Patient is resting comfortably in bedside chair this morning with no acute complaints. The patient states he continues to improve but still feels weak as compared to his baseline. Continues to have a cough that is productive but denies shortness of breath, fever, or chills. Constitutional: No fever, No chills, No sweats Respiratory: + cough, + sputum, + wheezing, No shortness of breath Cardiovascular: No chest pain, No palpitations Abdomen: No pain, No nausea, No vomiting, No diarrhea, No constipation Additional Comments: See HPI for pertinent positives and negatives. A total of ten systems were reviewed and were otherwise negative. Medications Current Inpatient Medications Medications (Trade) Dose Ordered Sig/Etta Route Start Time Stop Time Status Last Admin Dose Admin Al Hydrox/Mg Hydrox/Simethicone (Maalox Max Susp) 15 ml Q4H PRN PO 04/29/17 21:30 05/29/17 21:29 Magnesium Hydroxide (Milk Of Magnesia Susp) 30 ml Q12H PRN PO 04/29/17 21:30 05/29/17 21:29 Ondansetron HCl (Zofran Inj) 4 mg Q6H PRN IV 04/29/17 21:30 05/29/17 21:29 Polyethylene (Miralax Powder Packet) 17 gm DAILY PRN PO 04/29/17 21:30 05/29/17 21:29 Albuterol/ Ipratropium (Duoneb) 3 ml QIDR INH 04/30/17 08:00 05/30/17 07:59 05/04/17 11:15 3 ML Glucose (Glucose 40% Gel) 15-30 GRAMS 15 GRAMS... UD PRN PO 04/29/17 22:00 05/29/17 21:59 Glucose (Glucose Chew Tab) 4-8 Tablets 4 Tabl... UD PRN PO 04/29/17 22:00 05/29/17 21:59 Dextrose (Dextrose 50% 50ML Syringe) 25-50ML OF 50% DW IV FOR... UD PRN IV 04/29/17 22:00 05/29/17 21:59 Glucagon (Glucagon Inj) 1 mg UD PRN SQ 04/29/17 22:00 05/29/17 21:59 Atorvastatin Calcium (Lipitor Tab) 40 mg HS PO 04/30/17 21:00 05/30/17 20:59 Future hold 05/03/17 19:05 40 MG Bupropion HCl (Wellbutrin-Sr Tab) 200 mg QPM PO 04/30/17 21:00 05/30/17 20:59 Future hold Clopidogrel Bisulfate (plAVix TAB) 75 mg Q2D@0900 PO 04/30/17 09:00 05/30/17 08:59 Future hold 05/04/17 12:07 75 MG Furosemide (Lasix Tab) 80 mg BID17 PO 04/30/17 09:00 05/30/17 08:59 Future hold 05/04/17 08:06 80 MG Gabapentin (Neurontin Cap) 100 mg BID PO 04/30/17 09:00 05/30/17 08:59 Future hold 05/04/17 08:06 100 MG Levothyroxine Sodium (Synthroid Tab) 112 mcg DAILYBB PO 04/30/17 06:00 05/30/17 05:59 Future hold 05/04/17 06:03 112 MCG Miscellaneous Information (Order Awaiting Action) 1 ea QS N/A 04/30/17 00:00 05/30/17 00:00 Miscellaneous Information (Order Awaiting Action) 1 ea QS N/A 04/30/17 00:00 05/30/17 00:00 Sevelamer HCl (Renagel Tab) 1,600 mg TID PO 04/30/17 09:00 05/30/17 08:59 Future hold 05/04/17 13:12 1,600 MG Miscellaneous Information (Order Awaiting Action) 1 ea QS N/A 04/30/17 00:00 05/30/17 00:00 Miscellaneous Information (Consult Glycemic Management Pharmacy) 1 ea UD PRN N/A 04/30/17 10:45 05/30/17 10:44 Metoprolol Tartrate (Lopressor Tab) 50 mg BID PO 05/03/17 09:00 05/30/17 08:59 05/04/17 08:07 50 MG Amlodipine Besylate (Norvasc Tab) 2.5 mg Q48H PO 05/03/17 08:00 06/02/17 07:59 05/03/17 12:36 2.5 MG Prednisone (PredniSONE TAB) 40 mg QAM PO 05/03/17 09:00 06/02/17 08:59 05/04/17 08:07 40 MG Guaifenesin (Robitussin Sugar Free Syrup) 100 mg Q6H PRN PO 05/03/17 12:30 06/02/17 12:29 05/04/17 08:07 100 MG Insulin Aspart (novoLOG ASPART) SLIDING SCALE ACHS SC 05/04/17 11:00 06/03/17 10:59 05/04/17 12:08 4 UNITS Insulin Glargine (Lantus Solostar Pen) 20 units QDD SC 05/04/17 16:45 06/03/17 16:44 Insulin Aspart (novoLOG ASPART) SLIDING SCALE TODAY@0000,0400 SC 05/05/17 00:00 06/04/17 00:00 Amoxicillin/ Clavulanate Potassium (Augmentin Tab) 875 mg BIDM PO 05/04/17 20:00 05/11/17 19:59 UNV Objective Vital Signs Date Time Temp Pulse Resp B/P (MAP) Pulse Ox O2 Delivery O2 Flow Rate FiO2 05/04/17 15:51 36.7 77 19 134/80 (98) 91 Room Air 05/04/17 11:46 36.9 89 16 123/67 (85) 95 05/04/17 11:38 Nasal Cannula 2.0 05/04/17 11:15 78 18 93 Room Air 05/04/17 09:32 96 Nasal Cannula 2.0 05/04/17 08:16 36.8 81 16 138/83 (101) 96 Nasal Cannula 2.0 05/04/17 08:00 Nasal Cannula 2.0 05/04/17 07:22 67 16 97 Nasal Cannula 2.0 05/04/17 04:00 Nasal Cannula 2.0 05/04/17 03:30 37.2 73 17 141/82 (101) 99 Nasal Cannula 2.0 05/04/17 00:01 Nasal Cannula 2.0 05/03/17 23:35 36.9 73 22 152/88 (109) 98 Nasal Cannula 2.0 05/03/17 20:00 Nasal Cannula 2.0 05/03/17 19:53 36.9 84 20 136/84 (101) 97 Nasal Cannula 3.0 05/03/17 19:18 74 16 93 Nasal Cannula 2.0 Physical Exam General Appearance: WD/WN, no apparent distress Eyes: normal inspection, sclerae normal Neck: supple, no carotid bruits Respiratory/Chest: chest non-tender, no respiratory distress, + crackles, + rales, + wheezing Cardiovascular: regular rate, rhythm, no edema, no gallop Abdomen: normal bowel sounds, non tender, soft Extremities: + pedal edema, + swelling Neurologic/Psychiatric: alert, normal mood/affect, oriented x 3 Laboratory Results Results Past 24 Hours Test 05/03/17 17:17 05/03/17 19:55 05/03/17 21:04 05/03/17 22:12 Range/Units Bedside Glucose 200 225 170 148 70-99 mg/dl Test 05/03/17 23:02 05/04/17 00:05 05/04/17 00:58 05/04/17 02:00 Range/Units Bedside Glucose 125 115 126 137 70-99 mg/dl Test 05/04/17 03:02 05/04/17 03:56 05/04/17 04:56 05/04/17 06:01 Range/Units Bedside Glucose 135 139 140 139 70-99 mg/dl Test 05/04/17 06:42 05/04/17 06:58 05/04/17 09:08 05/04/17 10:19 Range/Units White Blood Count 13.59 4.8-10.8 K/uL Red Blood Count 3.55 4.7-6.1 M/uL Hemoglobin 12.2 14.0-18.0 g/dL Hematocrit 36.4 42-52 % Mean Corpuscular Volume 102.5 80-100 fL Mean Corpuscular Hemoglobin 34.4 25-34 pg Mean Corpuscular Hemoglobin Concent 33.5 32-36 g/dl Platelet Count 184 130-400 K/uL Mean Platelet Volume 9.9 7.4-10.4 fL Neutrophils (%) (Auto) 76.5 % Lymphocytes (%) (Auto) 12.1 % Monocytes (%) (Auto) 10.8 % Eosinophils (%) (Auto) 0.1 % Basophils (%) (Auto) 0.1 % Neutrophils # (Auto) 10.39 1.4-6.5 K/uL Lymphocytes # (Auto) 1.65 1.2-3.4 K/uL Monocytes # (Auto) 1.47 0.11-0.59 K/uL Eosinophils # (Auto) 0.01 0-0.5 K/uL Basophils # (Auto) 0.01 0-0.2 K/uL RDW Standard Deviation 55.1 36.4-46.3 fL RDW Coefficient of Variation 14.6 11.5-14.5 % Immature Granulocyte % (Auto) 0.4 % Immature Granulocyte # (Auto) 0.06 0.00-0.02 K/uL Venous Blood pH 7.43 7.36-7.41 Sodium Level 132 136-145 mmol/L Potassium Level 4.0 3.5-5.1 mmol/L Chloride Level 97 98-107 mmol/L Carbon Dioxide Level 24 21-32 mmol/L Anion Gap 11.0 3-11 mmol/L Blood Urea Nitrogen 48 7-18 mg/dl Creatinine 6.84 0.60-1.40 mg/dl Est Creatinine Clear Calc Drug Dose 13.2 ml/min Estimated GFR () 9.8 Estimated GFR (Non- 8.5 BUN/Creatinine Ratio 7.0 10-20 Random Glucose 145 70-99 mg/dl Calcium Level 9.1 8.5-10.1 mg/dl Bedside Glucose 119 84 92 70-99 mg/dl Test 05/04/17 11:11 05/04/17 15:54 Range/Units Bedside Glucose 99 193 70-99 mg/dl Assessment and Plan 51 year old male with a past medical history of DM, COPD, ESRD on dialysis, hx of PE, Bipolar and hypothyroidism that presented to the ED with acute loss of consciousness and changes on CXR concerning for a hospital acquired PNA/ infectious bronchiectasis Sepsis most likely secondary to infectious bronchiectasis/HAP and complicated by a history of severe tracheomalacia/ chronic bronchiectasis, COPD and positive resp culture with ESBL 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 XYLOSOXIDANS in 2016 - Prednisone 40mg PO Daily --> Previously on Methylpred 20 mg q8h IV - Doxycycline 100mg Day 07/25 --> Previously on Imipenem and Zyvox (5 days) Due to ESBL cultures on bronchoscopy (04/18/2017) - ID on board - Pulmonary consulted - Blood Cultures x 2 pending --> prelim negative - Duonebs qid - Home Ellipta held - Sputum Culture preliminarily negative DKA in setting of acute infection and no insulin pump; DM1 on insulin pump; stable on infusion pump - Overnight started on Subq insulin --> lantus 25 units --> Dose lowered to 20 units due to low sugars throughout the day - Will transition to insulin pump on discharge - Glycemic consult Elevated troponin, possible NSTEMI ACS II in light of septic picture - Troponin trending down --> Peak of 22, currently < 10 - Echo - No regional wall motion abnormalities, no significant changes - EKG NSR with no ST changes - Monitor on tele, heparin initiated - Echo August 2016: * There is mild concentric left ventricular hypertrophy with EF 55-65% * Grade I diastolic dysfunction, (abnormal relaxation pattern). * Moderate valvular aortic stenosis. * There is mild mitral stenosis. * Inferior wall from base to mid-ventricle is hypokinetic - CTA suboptimal but no PE visualized - Resume home Plavix ESRD secondary to diabetic nephropathy - Nephrology consulted - Dialysis in Tuesday, , and Tuesday - Daily BMP and Monitor I/O's - Resume home Sevelamer 1600 mg tid - Holding home Sensipar 20 mg daily HTN/HLD/ PAD - Lopressor 50mg BID - Amlodipine 2.5 mg 4x/wk - Plavix 75 mg daily - Atorvastatin 40 mg daily Chronic diastolic CHF - Lasix 20mg PO Daily Hypothyroidism - Synthroid 112 mcg PO qdaily Peripheral neuropathy - Gabapentin 100 mg bid Mood Disorder - Resume home Wellbutrin, previously held due to interaction with Linezolid which has subsequently been discontinued DVT prophylaxis - Heparin 5,000 units Sq daily Code Status - Full Resuscitation Resident Tracking Resident Involvement: Resident Care Provided Care Provided: Adult Hospital Medicine
[2017-05-04] MEDS: DOXYCYCLINE HYCLATE 100 MG CAP PO SCH (17:13)
[2017-05-04] MEDS ORDERED: AMOXICILLIN/CLAVULANATE TAB 875 MG TAB PO SCH (20:00)
[2017-05-04] MEDS: ATORVASTATIN 40 MG TAB PO SCH (21:26)
[2017-05-04] MEDS: BuPROPion SR 100 MG TABCR PO SCH (21:27)
[2017-05-05] VITALS (20 sets, daily range): BP systolic 98–171; BP diastolic 60–88; PULSE 70–89; TEMP 36.3–36.7; O2SAT 91–94
[2017-05-05] MEDS: INSULIN ASPART 100 UNITS/ML 3 ML PEN SC SCH ×7 (04:35→22:05)
[2017-05-05] MEDS: LEVOTHYROXINE 112 MCG TAB PO SCH (04:37)
[2017-05-05] MEDS: ALBUT/IPRATROP 3MG/0.5MG NEB 3 ML VIAL INH SCH ×2 (07:24→07:26)
[2017-05-05] MEDS ORDERED: ALBUT/IPRATROP 3MG/0.5MG NEB 3 ML VIAL INH PRN (08:30)
[2017-05-05] MEDS: SENSIPAR~ORDER AWAITING ACTION SCH ×2 (08:34→15:34)
[2017-05-05] MEDS: INCRUSE ELLIPTA~ORDER AWAITING ACTION SCH ×2 (08:34→15:34)
[2017-05-05] MEDS: SEVELAMER HYDROCH 800 MG TAB PO SCH ×3 (08:38→22:06)
[2017-05-05] MEDS: DOXYCYCLINE HYCLATE 100 MG CAP PO SCH ×2 (08:38→22:06)
[2017-05-05] MEDS ORDERED: NURSING VERBAL MED ORDER ONE (09:00)
--- NOTE | 2017-05-05 09:36 | CARDIOLOGY PROGRESS NOTE ---
DATE: 05/05/2017 SUBJECTIVE: Mr. Clark is resting comfortably in the bedside chair without complaints of chest pain or dyspnea. He continues to have a productive cough. OBJECTIVE: VITAL SIGNS: Blood pressure 138/80 with a regular pulse of 80. Respiratory rate is 18. The patient is afebrile at 36.7 degrees Celsius. Saturations 94% on room air. NECK: Supple with delayed and prolonged carotid upstrokes. No obvious bruits or transmitted murmurs. Jugular venous pressure is flat at 90 degrees. CARDIOVASCULAR: Reveals a regular rhythm with a 2/6 crescendo decrescendo systolic murmur heard loudest at the base. No S3. LUNGS: Note diffuse rhonchi and coarse breath sounds. ABDOMEN: Soft without bruits. EXTREMITIES: Reveal trace pretibial edema. DATA: CBC and PRP are pending. IMPRESSION AND PLAN: 1. Elevated troponin -- likely secondary to supply demand mismatch at presentation realizing his moderate left ventricular hypertrophy, diastolic dysfunction and his hypotension. No wall motion abnormality seen on echocardiogram. Continue medical management. 2. Moderate aortic stenosis. 3. Hypertension. 4. Moderate left ventricular hypertrophy -- with diastolic dysfunction. 5. Hypercholesterolemia. 6. Peripheral vascular disease. 7. Chronic renal failure.
[2017-05-05 09:37] LABS: BASO % 0.1 %; BASO ABS # 0.01 K/uL (0-0.2); EOS % 0.1 %; EOS ABS # 0.01 K/uL (0-0.5); HEMATOCRIT 39.9 % (42-52); HEMOGLOBIN 13.5 g/dL (14.0-18.0); IG# 0.04 K/uL (0.00-0.02); LYMPH % 9.8 %; LYMPH ABS # 1.33 K/uL (1.2-3.4); MEAN CELL VOLUME 102.6 fL (80-100); MEAN CORPUSCULAR HEMOGLOBIN 34.7 pg (25-34); MEAN CORPUSCULAR HGB CONC 33.8 g/dl (32-36); MEAN PLATELET VOLUME 10.3 fL (7.4-10.4); MONO % 9.2 %; MONO ABS # 1.24 K/uL (0.11-0.59); NEUT % 80.5 %; PLATELET COUNT 232 K/uL (130-400); RED CELL DISTRIBUTION WIDTH CV 14.4 % (11.5-14.5); RED CELL DISTRIBUTION WIDTH SD 53.4 fL (36.4-46.3); WHITE BLOOD COUNT 13.53 K/uL (4.8-10.8)
[2017-05-05] MEDS: INSULIN GLARGINE SOLOSTAR 100 UNITS/ML 3 ML PEN SC ONE ×2 (10:01→10:11)
[2017-05-05 10:10] LABS: CALCIUM 9.1 mg/dl (8.5-10.1); CREATININE 9.05 mg/dl (0.60-1.40); POTASSIUM 4.6 mmol/L (3.5-5.1)
--- NOTE | 2017-05-05 11:54 | Dialysis Progress Note ---
Hemodialysis Note Date of Service May 05, 2017. Chief Complaint Follow-up for end-stage renal disease on hemodialysis. Subjective Gino was seen and examined during hemodialysis treatment this morning. He has been tolerating dialysis well, vital signs stable. Denies any dizziness, lightheadedness, leg cramp. Review of Systems A complete review of systems was performed. Pertinent positives are noted above. All other systems are negative. Vital Signs Last 8 Hrs Date Time Temp Pulse Resp B/P (MAP) Pulse Ox O2 Delivery O2 Flow Rate FiO2 05/05/17 11:45 83 125/60 05/05/17 11:30 81 136/66 05/05/17 11:15 79 118/61 05/05/17 11:00 76 147/71 05/05/17 10:45 79 143/76 05/05/17 10:30 89 136/75 05/05/17 10:15 75 171/86 05/05/17 10:00 71 149/84 05/05/17 09:45 70 166/87 05/05/17 09:32 36.6 77 165/80 (108) 05/05/17 08:30 Room Air 05/05/17 07:13 36.7 81 18 138/88 (105) 94 Room Air Last Recorded Weight Weight (Kilograms): 88.800 Physical Exam GENERAL: Middle-aged male, AAA x 3, pleasant, ill-appearing, not in any distress. NECK: Supple, no JVD. RESPIRATORY: Normal breathing efforts, no accessory muscle use, course crackles bilaterally CARDIOVASCULAR: S1, S2 normal, rate rhythm regular. EXTREMITY: No lower extremity edema NEURO: speech fluent. PSYCHIATRY: Normal mood and judgment Family History Negative for CKD / ESRD Social History Smoking Status: Current every day smoker Smokeless Tobacco Use: No Alcohol Use: none Drug Use: none Marital Status: Housing Status: lives with family Occupation: disabled . Medically disabled. Former smoker (Quit 2013) Laboratory Results Past 24 Hours 05/05/17 08:42 Red Blood Count 3.89, Mean Corpuscular Volume 102.6, Mean Corpuscular Hemoglobin 34.7, Mean Corpuscular Hemoglobin Concent 33.8, Mean Platelet Volume 10.3, Neutrophils (%) (Auto) 80.5, Lymphocytes (%) (Auto) 9.8, Monocytes (%) ( Auto) 9.2, Eosinophils (%) (Auto) 0.1, Basophils (%) (Auto) 0.1, Neutrophils # ( Auto) 10.90, Lymphocytes # (Auto) 1.33, Monocytes # (Auto) 1.24, Eosinophils # ( Auto) 0.01, Basophils # (Auto) 0.01 05/05/17 08:42 Test 05/04/17 15:54 05/04/17 20:05 05/04/17 23:55 05/05/17 03:59 Bedside Glucose 193 mg/dl (70-99) 179 mg/dl (70-99) 157 mg/dl (70-99) 196 mg/dl (70-99) Test 05/05/17 07:35 05/05/17 08:42 Bedside Glucose 254 mg/dl (70-99) White Blood Count 13.53 K/uL (4.8-10.8) Red Blood Count 3.89 M/uL (4.7-6.1) Hemoglobin 13.5 g/dL (14.0-18.0) Hematocrit 39.9 % (42-52) Mean Corpuscular Volume 102.6 fL (80-100) Mean Corpuscular Hemoglobin 34.7 pg (25-34) Mean Corpuscular Hemoglobin Concent 33.8 g/dl (32-36) Platelet Count 232 K/uL (130-400) Mean Platelet Volume 10.3 fL (7.4-10.4) Neutrophils (%) (Auto) 80.5 % Lymphocytes (%) (Auto) 9.8 % Monocytes (%) (Auto) 9.2 % Eosinophils (%) (Auto) 0.1 % Basophils (%) (Auto) 0.1 % Neutrophils # (Auto) 10.90 K/uL (1.4-6.5) Lymphocytes # (Auto) 1.33 K/uL (1.2-3.4) Monocytes # (Auto) 1.24 K/uL (0.11-0.59) Eosinophils # (Auto) 0.01 K/uL (0-0.5) Basophils # (Auto) 0.01 K/uL (0-0.2) RDW Standard Deviation 53.4 fL (36.4-46.3) RDW Coefficient of Variation 14.4 % (11.5-14.5) Immature Granulocyte % (Auto) 0.3 % Immature Granulocyte # (Auto) 0.04 K/uL (0.00-0.02) Anion Gap 12.0 mmol/L (3-11) Est Creatinine Clear Calc Drug Dose 10.0 ml/min Estimated GFR () 7.0 Estimated GFR (Non- 6.0 BUN/Creatinine Ratio 8.1 (10-20) Calcium Level 9.1 mg/dl (8.5-10.1) Allergies Coded Allergies: Codeine (Verified Allergy, Intermediate, NAUSEA AND VOMITING, 04/18/17) QUESTIONABLE ALLERGY, STILL QUESTIONABLE BUT MD D/C SHONDA WITH COD 02/20/17 Tigecycline (Verified Allergy, Mild, ?RASH, 04/18/17) Clindamycin (Verified Allergy, Unknown, Unknown, 04/29/17) Penicillins (Verified Allergy, Unknown, PT HAS HAD MEFOXIN W/OUT A PROBLEM , 04/18/17) HAD MEFOXIN W/O PROBLEM Ciprofloxacin (Verified Adverse Reaction, Intermediate, nausea,vomiting, generalized weakness, 04/18/17) Morphine (Verified Adverse Reaction, Intermediate, TREMBLING,NAUSEA AND VOMITING, 04/18/17) Opioid Analgesics (Verified Adverse Reaction, Intermediate, "ALL RX PAIN MEDS CAUSE SEVERE NAUSEA", 04/18/17) Levofloxacin (Verified Adverse Reaction, Mild, Cipro/Levaquin (IV & po) = N & V, 04/18/17) Oxycodone (Verified Adverse Reaction, Unknown, N/V/D, 04/18/17) SPOKE WITH PATIENT ON 07/29/15, DOES NOT REMEMBER ANY DIFFICULTY BREATHING JUST HIT HIM HARD. Medications Current Inpatient Medications Medications (Trade) Dose Ordered Sig/Etta Route Start Time Stop Time Status Last Admin Dose Admin Al Hydrox/Mg Hydrox/Simethicone (Maalox Max Susp) 15 ml Q4H PRN PO 04/29/17 21:30 05/29/17 21:29 Magnesium Hydroxide (Milk Of Magnesia Susp) 30 ml Q12H PRN PO 04/29/17 21:30 05/29/17 21:29 Ondansetron HCl (Zofran Inj) 4 mg Q6H PRN IV 04/29/17 21:30 05/29/17 21:29 Polyethylene (Miralax Powder Packet) 17 gm DAILY PRN PO 04/29/17 21:30 05/29/17 21:29 Glucose (Glucose 40% Gel) 15-30 GRAMS 15 GRAMS... UD PRN PO 04/29/17 22:00 05/29/17 21:59 Glucose (Glucose Chew Tab) 4-8 Tablets 4 Tabl... UD PRN PO 04/29/17 22:00 05/29/17 21:59 Dextrose (Dextrose 50% 50ML Syringe) 25-50ML OF 50% DW IV FOR... UD PRN IV 04/29/17 22:00 05/29/17 21:59 Glucagon (Glucagon Inj) 1 mg UD PRN SQ 04/29/17 22:00 05/29/17 21:59 Atorvastatin Calcium (Lipitor Tab) 40 mg HS PO 04/30/17 21:00 05/30/17 20:59 Future hold 05/04/17 21:26 40 MG Bupropion HCl (Wellbutrin-Sr Tab) 200 mg QPM PO 04/30/17 21:00 05/30/17 20:59 Future hold 05/04/17 21:27 200 MG Clopidogrel Bisulfate (plAVix TAB) 75 mg Q2D@0900 PO 04/30/17 09:00 05/30/17 08:59 Future hold 05/04/17 12:07 75 MG Levothyroxine Sodium (Synthroid Tab) 112 mcg DAILYBB PO 04/30/17 06:00 05/30/17 05:59 Future hold 05/05/17 04:37 112 MCG Miscellaneous Information (Order Awaiting Action) 1 ea QS N/A 04/30/17 00:00 05/30/17 00:00 Miscellaneous Information (Order Awaiting Action) 1 ea QS N/A 04/30/17 00:00 05/30/17 00:00 Sevelamer HCl (Renagel Tab) 1,600 mg TID PO 04/30/17 09:00 05/30/17 08:59 Future hold 05/05/17 08:38 1,600 MG Miscellaneous Information (Order Awaiting Action) 1 ea QS N/A 04/30/17 00:00 05/30/17 00:00 Miscellaneous Information (Consult Glycemic Management Pharmacy) 1 ea UD PRN N/A 04/30/17 10:45 05/30/17 10:44 Amlodipine Besylate (Norvasc Tab) 2.5 mg Q48H PO 05/03/17 08:00 06/02/17 07:59 05/03/17 12:36 2.5 MG Prednisone (PredniSONE TAB) 40 mg QAM PO 05/03/17 09:00 06/02/17 08:59 05/05/17 08:38 40 MG Guaifenesin (Robitussin Sugar Free Syrup) 100 mg Q6H PRN PO 05/03/17 12:30 06/02/17 12:29 05/04/17 08:07 100 MG Insulin Aspart (novoLOG ASPART) SLIDING SCALE ACHS SC 05/04/17 11:00 06/03/17 10:59 05/05/17 08:44 13 UNITS Insulin Glargine (Lantus Solostar Pen) 20 units QDD SC 05/04/17 16:45 06/03/17 16:44 05/04/17 16:45 20 UNITS Insulin Aspart (novoLOG ASPART) SLIDING SCALE TODAY@0000,0400 SC 05/05/17 00:00 06/04/17 00:00 05/05/17 04:35 2 UNITS Doxycycline Hyclate (Vibramycin Cap) 100 mg BID PO 05/04/17 18:00 05/06/17 17:59 05/05/17 08:38 100 MG Albuterol/ Ipratropium (Combivent Respimat Inh) 1 puffs QID INH 05/05/17 13:00 06/04/17 12:59 Albuterol/ Ipratropium (Duoneb) 3 ml Q2H PRN INH 05/05/17 08:30 06/04/17 08:29 Furosemide (Lasix Tab) 80 mg Q12H PO 05/05/17 13:00 06/04/17 12:59 Metoprolol Tartrate (Lopressor Tab) 50 mg BID@0100,1300 PO 05/05/17 13:00 06/04/17 12:59 Gabapentin (Neurontin Cap) 100 mg BID@0100,1300 PO 05/05/17 13:00 06/04/17 12:59 Impression (1) Altered level of consciousness (2) Sepsis (3) Hypotension arterial (4) Tracheomalacia (5) End-stage renal disease on hemodialysis Patient admitted to the hospital w/ presumed sepsis syndrome. He has a history of severe tracheal malacia with chronic bronchiectasis. He is now on broad spectrum antibiotics. Blood cultures are pending. CXR with mild congestive changes and bibasilar infiltrates PMH - ESRD due to diabetic nephropathy on IHD since 12/25 (HD TTS at [facility] - 4 hrs 2K 2Ca F180NR Qb 450 cc/min HCO3 34 EDW 83 kg), IDDM, HTN , PVD s/p R femoral artery bypass, anemia, hypothyroidism, hypercholesterolemia , bipolar disorder, COPD w/ severe tracheomalacia and chronic bronchiectasis ( quit smoking ~ 2013). Recommendations --getting dialysis is regular schedule with 2 K bath, aim for UF 3 liters. --Avoid further IV fluid --continue on Nephrocaps and oral phosphate binders. --Hgb is acceptable. No acute indication for GINO at this time. --on broad spectrum antibiotics. Blood cultures are NGTD. Overall clinically significantly improved. Will follow
[2017-05-05] MEDS: AMLODIPINE BESYLATE 5 MG TAB PO SCH (14:22)
[2017-05-05] MEDS: FUROSEMIDE 80 MG TAB PO SCH (14:23)
[2017-05-05] MEDS: GABAPENTIN 100 MG CAP PO SCH (14:23)
[2017-05-05] MEDS: METOPROLOL TARTRATE 50 MG TAB PO SCH (14:23)
[2017-05-05] MEDS: IPRATROPIUM BROMIDE/ALBUTEROL respimat INH INH SCH ×3 (14:23→21:38)
--- NOTE | 2017-05-05 14:36 | Pharmacy Progress Note ---
Pharmacy Glycemic Short Note 2 Date of Service May 05, 2017. OUTPATIENT ANTIDIABETIC REGIMEN: * NovoLog SQ insulin pump * Follows with Dr Sumner/[facility] Endocrinology * Basal rates ~ 14.4 units/day * Bolus CF = 20mg/dl/unit * CR = 1 unit for every 12g CHO consumed * A1c of 6% is somewhat unreliable secondary to HD and altered RBC turnover rate. Regardless, it is likely somewhat accurate as patient has frequent hypoglycemia and over-treats/over boluses on his pump. Pt likes to maintain A1c of 6% despite realistic patient specific goal A1c around 8% ASSESSMENT: 05/04/17 * Pt transitioned from IV insulin infusion to SQ basal bolus insulin regimen last night. * Pt was going to transition from IV to outpatient pump but instead was changed to SQ basal bolus secondary to concerns on his ability to manage his pump, especially with prednisone on board. * Order was for drip to stop whenever held per calculator after the dose of Lantus 25 units given. IV insulin infusion continued all night and was eventually held this morning when BSG 119, 89 mg/dl. * BSGs all remain below 100 mg/dl since stopping IV insulin infusion. Will empirically reduce next Lantus dose to prevent hypoglycemia. * Solumedrol stopped on 05/02 PM and changed to prednisone daily on 05/03 * PO intake remains poor 05/05/17 * Mr. Clark was transitioned off the insulin drip yesterday and received 33 units of SQ insulin yesterday with BSGs 98-296 mg/dL * Changes to insulin resistance: * PO intake increased significantly * Fasting BSG 254 mg/dL - will give additional 5 units of Lantus, especially since once daily prednisone still on board * Postprandial BSGs okay - continue same CF/CR for now as they are already fairly aggressive PLAN FOR INPATIENT GLYCEMIC CONTROL: * Basal insulin * Continue Lantus 20 units with dinner - extra 5 units this AM * Will re-evaluate further changes tomorrow depending on po intake * Bolus insulin * NovoLog ACHS. Additional check at 0200 only to assess if extra basal needed * Goal Range 110-140 mg/dl * Correction Factor: 25mg/dl/unit * Nutritional / Prandial insulin per carb ratio of 1 unit for every 9g CHO consumed
[2017-05-05] MEDS: INSULIN GLARGINE SOLOSTAR 100 UNITS/ML 3 ML PEN SC SCH (17:00)
--- NOTE | 2017-05-05 17:04 | Family Medicine Progress Note ---
Progress Note Date of Service May 05, 2017. Subjective Pt evaluation today including: conversation w/ patient, physical exam, chart review, lab review, review of studies Pain: No Voiding: no voiding problems, no incontinence Patient resting comfortably in bed this morning with no acute complaints. Patient states he continues to improve and is feeling stronger. He has been using a wheelchair at home for the past year and would like to improve his strength with rehab. He denies any shortness of breath at this time. Constitutional: No fever, No chills, No sweats Respiratory: + cough, + sputum, + wheezing, No shortness of breath Cardiovascular: No chest pain, No palpitations Abdomen: No pain, No nausea, No vomiting, No diarrhea Endo: + fatigue Medications Current Inpatient Medications Medications (Trade) Dose Ordered Sig/Etta Route Start Time Stop Time Status Last Admin Dose Admin Al Hydrox/Mg Hydrox/Simethicone (Maalox Max Susp) 15 ml Q4H PRN PO 04/29/17 21:30 05/29/17 21:29 Magnesium Hydroxide (Milk Of Magnesia Susp) 30 ml Q12H PRN PO 04/29/17 21:30 05/29/17 21:29 Ondansetron HCl (Zofran Inj) 4 mg Q6H PRN IV 04/29/17 21:30 05/29/17 21:29 Polyethylene (Miralax Powder Packet) 17 gm DAILY PRN PO 04/29/17 21:30 05/29/17 21:29 Glucose (Glucose 40% Gel) 15-30 GRAMS 15 GRAMS... UD PRN PO 04/29/17 22:00 05/29/17 21:59 Glucose (Glucose Chew Tab) 4-8 Tablets 4 Tabl... UD PRN PO 04/29/17 22:00 05/29/17 21:59 Dextrose (Dextrose 50% 50ML Syringe) 25-50ML OF 50% DW IV FOR... UD PRN IV 04/29/17 22:00 05/29/17 21:59 Glucagon (Glucagon Inj) 1 mg UD PRN SQ 04/29/17 22:00 05/29/17 21:59 Atorvastatin Calcium (Lipitor Tab) 40 mg HS PO 04/30/17 21:00 05/30/17 20:59 Future hold 05/04/17 21:26 40 MG Bupropion HCl (Wellbutrin-Sr Tab) 200 mg QPM PO 04/30/17 21:00 05/30/17 20:59 Future hold 05/04/17 21:27 200 MG Clopidogrel Bisulfate (plAVix TAB) 75 mg Q2D@0900 PO 04/30/17 09:00 05/30/17 08:59 Future hold 05/04/17 12:07 75 MG Levothyroxine Sodium (Synthroid Tab) 112 mcg DAILYBB PO 04/30/17 06:00 05/30/17 05:59 Future hold 05/05/17 04:37 112 MCG Miscellaneous Information (Order Awaiting Action) 1 ea QS N/A 04/30/17 00:00 05/30/17 00:00 Miscellaneous Information (Order Awaiting Action) 1 ea QS N/A 04/30/17 00:00 05/30/17 00:00 Sevelamer HCl (Renagel Tab) 1,600 mg TID PO 04/30/17 09:00 05/30/17 08:59 Future hold 05/05/17 14:22 1,600 MG Miscellaneous Information (Order Awaiting Action) 1 ea QS N/A 04/30/17 00:00 05/30/17 00:00 Miscellaneous Information (Consult Glycemic Management Pharmacy) 1 ea UD PRN N/A 04/30/17 10:45 05/30/17 10:44 Amlodipine Besylate (Norvasc Tab) 2.5 mg Q48H PO 05/03/17 08:00 06/02/17 07:59 05/05/17 14:22 2.5 MG Prednisone (PredniSONE TAB) 40 mg QAM PO 05/03/17 09:00 06/02/17 08:59 05/05/17 08:38 40 MG Guaifenesin (Robitussin Sugar Free Syrup) 100 mg Q6H PRN PO 05/03/17 12:30 06/02/17 12:29 05/04/17 08:07 100 MG Insulin Aspart (novoLOG ASPART) SLIDING SCALE ACHS SC 05/04/17 11:00 06/03/17 10:59 05/05/17 14:28 7 UNITS Insulin Glargine (Lantus Solostar Pen) 20 units QDD SC 05/04/17 16:45 06/03/17 16:44 05/04/17 16:45 20 UNITS Doxycycline Hyclate (Vibramycin Cap) 100 mg BID PO 05/04/17 18:00 05/06/17 17:59 05/05/17 08:38 100 MG Albuterol/ Ipratropium (Combivent Respimat Inh) 1 puffs QID INH 05/05/17 13:00 06/04/17 12:59 05/05/17 14:23 1 PUFFS Albuterol/ Ipratropium (Duoneb) 3 ml Q2H PRN INH 05/05/17 08:30 06/04/17 08:29 Furosemide (Lasix Tab) 80 mg Q12H PO 05/05/17 13:00 06/04/17 12:59 05/05/17 14:23 80 MG Metoprolol Tartrate (Lopressor Tab) 50 mg BID@0100,1300 PO 05/05/17 13:00 06/04/17 12:59 05/05/17 14:23 50 MG Gabapentin (Neurontin Cap) 100 mg BID@0100,1300 PO 05/05/17 13:00 06/04/17 12:59 05/05/17 14:23 100 MG Insulin Aspart (novoLOG ASPART) SLIDING SCALE 0200 SC 05/06/17 02:00 06/05/17 01:59 Calcium Acetate (Phoslo Cap) 667 mg TIDM PO 05/05/17 17:00 06/04/17 16:59 Objective Vital Signs Date Time Temp Pulse Resp B/P (MAP) Pulse Ox O2 Delivery O2 Flow Rate FiO2 05/05/17 15:36 36.3 88 18 121/78 (92) 91 Room Air 05/05/17 13:45 36.4 79 159/83 (108) 05/05/17 13:30 86 119/72 05/05/17 13:15 79 141/75 05/05/17 13:00 88 98/60 05/05/17 12:45 88 111/71 05/05/17 12:30 84 116/67 05/05/17 12:15 81 129/69 05/05/17 12:00 85 115/66 05/05/17 11:45 83 125/60 05/05/17 11:30 81 136/66 05/05/17 11:15 79 118/61 05/05/17 11:00 76 147/71 05/05/17 10:45 79 143/76 05/05/17 10:30 89 136/75 05/05/17 10:15 75 171/86 05/05/17 10:00 71 149/84 05/05/17 09:45 70 166/87 05/05/17 09:32 36.6 77 165/80 (108) 05/05/17 08:30 Room Air 05/05/17 07:13 36.7 81 18 138/88 (105) 94 Room Air 05/05/17 00:00 Room Air 05/04/17 23:32 36.7 74 21 131/77 (95) 95 Room Air 05/04/17 21:43 81 149/75 (99) 05/04/17 20:33 74 18 95 Room Air 05/04/17 19:49 36.7 77 18 180/102 (128) 95 Room Air 05/04/17 18:57 36.7 77 19 91 2.0 Physical Exam General Appearance: WD/WN, no apparent distress Eyes: normal inspection, sclerae normal Neck: supple, trachea midline Respiratory/Chest: chest non-tender, no respiratory distress, no accessory muscle use, + crackles, + wheezing Cardiovascular: regular rate, rhythm, + systolic murmur (4/6) Abdomen: normal bowel sounds, non tender, soft Extremities: no calf tenderness Neurologic/Psychiatric: alert, normal mood/affect, oriented x 3 Laboratory Results Results Past 24 Hours Test 05/04/17 20:05 05/04/17 23:55 05/05/17 03:59 05/05/17 07:35 Range/Units Bedside Glucose 179 157 196 254 70-99 mg/dl Test 05/05/17 08:42 05/05/17 14:16 Range/Units White Blood Count 13.53 4.8-10.8 K/uL Red Blood Count 3.89 4.7-6.1 M/uL Hemoglobin 13.5 14.0-18.0 g/dL Hematocrit 39.9 42-52 % Mean Corpuscular Volume 102.6 80-100 fL Mean Corpuscular Hemoglobin 34.7 25-34 pg Mean Corpuscular Hemoglobin Concent 33.8 32-36 g/dl Platelet Count 232 130-400 K/uL Mean Platelet Volume 10.3 7.4-10.4 fL Neutrophils (%) (Auto) 80.5 % Lymphocytes (%) (Auto) 9.8 % Monocytes (%) (Auto) 9.2 % Eosinophils (%) (Auto) 0.1 % Basophils (%) (Auto) 0.1 % Neutrophils # (Auto) 10.90 1.4-6.5 K/uL Lymphocytes # (Auto) 1.33 1.2-3.4 K/uL Monocytes # (Auto) 1.24 0.11-0.59 K/uL Eosinophils # (Auto) 0.01 0-0.5 K/uL Basophils # (Auto) 0.01 0-0.2 K/uL RDW Standard Deviation 53.4 36.4-46.3 fL RDW Coefficient of Variation 14.4 11.5-14.5 % Immature Granulocyte % (Auto) 0.3 % Immature Granulocyte # (Auto) 0.04 0.00-0.02 K/uL Sodium Level 130 136-145 mmol/L Potassium Level 4.6 3.5-5.1 mmol/L Chloride Level 95 98-107 mmol/L Carbon Dioxide Level 23 21-32 mmol/L Anion Gap 12.0 3-11 mmol/L Blood Urea Nitrogen 75 7-18 mg/dl Creatinine 9.05 0.60-1.40 mg/dl Est Creatinine Clear Calc Drug Dose 10.0 ml/min Estimated GFR () 7.0 Estimated GFR (Non- 6.0 BUN/Creatinine Ratio 8.1 10-20 Random Glucose 296 70-99 mg/dl Calcium Level 9.1 8.5-10.1 mg/dl Bedside Glucose 98 70-99 mg/dl Assessment and Plan 51 year old male with a past medical history of DM, COPD, ESRD on dialysis, hx of PE, Bipolar and hypothyroidism that presented to the ED with acute loss of consciousness and changes on CXR concerning for a hospital acquired PNA/ infectious bronchiectasis Sepsis most likely secondary to infectious bronchiectasis/HAP and complicated by a history of severe tracheomalacia/ chronic bronchiectasis, COPD and positive resp culture with ESBL 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 XYLOSOXIDANS in 2016 - Prednisone 40mg PO Daily (Day 3) --> Taper to 30mg Prednisone tomorrow --> Previously on Methylpred 20 mg q8h IV - Doxycycline 100mg Day 6/7 --> Previously on Imipenem and Zyvox (5 days) Due to ESBL cultures on bronchoscopy (04/18/2017) - ID on board - Pulmonary consulted - Blood Cultures x 2 pending --> prelim negative - Duonebs qid - Home Ellipta held - Sputum Culture preliminarily negative DKA in setting of acute infection and no insulin pump; DM1 on insulin pump; stable on infusion pump - Lantus 20 units - Will transition to insulin pump on discharge - Glycemic consult Elevated troponin, possible NSTEMI ACS II in light of septic picture - Troponin trending down --> Peak of 22, currently < 10 - Echo - No regional wall motion abnormalities, no significant changes - EKG NSR with no ST changes - Monitor on tele, heparin initiated - Echo August 2016: * There is mild concentric left ventricular hypertrophy with EF 55-65% * Grade I diastolic dysfunction, (abnormal relaxation pattern). * Moderate valvular aortic stenosis. * There is mild mitral stenosis. * Inferior wall from base to mid-ventricle is hypokinetic - CTA suboptimal but no PE visualized - Resume home Plavix ESRD secondary to diabetic nephropathy - Nephrology consulted - Dialysis in Tuesday, , and Tuesday - Daily BMP and Monitor I/O's - Resume home Sevelamer 1600 mg tid - Holding home Sensipar 20 mg daily HTN/HLD/ PAD - Lopressor 50mg BID - Amlodipine 2.5 mg 4x/wk - Plavix 75 mg daily - Atorvastatin 40 mg daily Chronic diastolic CHF - Lasix 20mg PO Daily Hypothyroidism - Synthroid 112 mcg PO qdaily Peripheral neuropathy - Gabapentin 100 mg bid Mood Disorder - Resume home Wellbutrin, previously held due to interaction with Linezolid which has subsequently been discontinued DVT prophylaxis - Heparin 5,000 units Sq daily Code Status - Full Resuscitation Disposition - Acute Rehab Placement Resident Tracking Resident Involvement: Resident Care Provided Care Provided: Adult Hospital Medicine
[2017-05-05] MEDS: CALCIUM ACETATE 667MG GELCAP PO SCH (17:30)
[2017-05-05] MEDS: ATORVASTATIN 40 MG TAB PO SCH (22:06)
[2017-05-05] MEDS: BuPROPion SR 100 MG TABCR PO SCH (22:06)
[2017-05-06] MEDS: FUROSEMIDE 80 MG TAB PO SCH ×2 (01:29→12:19)
[2017-05-06] MEDS: GABAPENTIN 100 MG CAP PO SCH ×2 (01:29→12:19)
[2017-05-06 01:32] VITALS: BP 125/81; PULSE 72
[2017-05-06] MEDS: METOPROLOL TARTRATE 50 MG TAB PO SCH ×2 (01:33→12:19)
[2017-05-06 01:34] VITALS: BP 165/90; PULSE 74; TEMP 36.4; O2SAT 92
[2017-05-06] MEDS ORDERED: INSULIN ASPART 100 UNITS/ML 3 ML PEN SC SCH (02:00)
[2017-05-06] MEDS: LEVOTHYROXINE 112 MCG TAB PO SCH (05:59)
[2017-05-06 08:00] VITALS: O2SAT 92
[2017-05-06] MEDS: SENSIPAR~ORDER AWAITING ACTION SCH ×3 (08:00→15:19)
[2017-05-06] MEDS ORDERED: INSULIN GLARGINE SOLOSTAR 100 UNITS/ML 3 ML PEN SC SCH (08:00)
[2017-05-06] MEDS: INCRUSE ELLIPTA~ORDER AWAITING ACTION SCH ×3 (08:00→15:19)
[2017-05-06 08:25] LABS: CALCIUM 8.9 mg/dl (8.5-10.1); CREATININE 6.58 mg/dl (0.60-1.40); POTASSIUM 4.1 mmol/L (3.5-5.1)
[2017-05-06] MEDS: CALCIUM ACETATE 667MG GELCAP PO SCH ×3 (08:26→17:08)
[2017-05-06] MEDS: SEVELAMER HYDROCH 800 MG TAB PO SCH ×2 (08:26→12:20)
[2017-05-06] MEDS: IPRATROPIUM BROMIDE/ALBUTEROL respimat INH INH SCH ×3 (08:26→17:08)
[2017-05-06] MEDS: CLOPIDOGREL BISULFATE 75 MG TAB PO SCH (08:26)
[2017-05-06] MEDS: DOXYCYCLINE HYCLATE 100 MG CAP PO SCH (08:26)
[2017-05-06] MEDS: INSULIN ASPART 100 UNITS/ML 3 ML PEN SC SCH (08:33)
[2017-05-06 08:34] VITALS: BP 149/93; PULSE 74; TEMP 36.8; O2SAT 93
[2017-05-06] MEDS ORDERED: INSULIN ASPART 100 UNITS/ML VIAL SC PRN (09:30)
[2017-05-06] MEDS: NovoLOG INSULIN PUMP SCH ×3 (10:40→16:30)
--- NOTE | 2017-05-06 11:36 | Nephrology Progress Note ---
Nephrology Progress Note Date of Service May 06, 2017. Chief Complaint Follow-up for end-stage renal disease on hemodialysis. Subjective Gino was seen examined in his room this morning. He just walked in the hallway with physical therapy tolerated well and he feels like is ready for discharge. Had dialysis yesterday for uneventful, currently blood pressure volume status and electrolyte acceptable. Review of Systems A complete review of systems was performed. Pertinent positives are noted above. All other systems are negative. Vital Signs Last 8 Hrs Date Time Temp Pulse Resp B/P (MAP) Pulse Ox O2 Delivery O2 Flow Rate FiO2 05/06/17 08:34 36.8 74 18 149/93 (111) 93 Room Air 05/06/17 08:00 92 Room Air Last Recorded Weight Weight (Kilograms): 86.800 Physical Exam GENERAL: Middle-aged male , AAA x 3, not in any distress. NECK: Supple, no JVD. RESPIRATORY: Normal breathing efforts, no accessory muscle use, coarse crackles bilaterally. CARDIOVASCULAR: S1, S2 normal, rate rhythm regular. EXTREMITY: No lower extremity edema NEURO: speech fluent. PSYCHIATRY: Normal mood and judgment Family History FH: heart disease Negative for CKD / ESRD Social History Smoking Status: Current every day smoker Smokeless Tobacco Use: No Alcohol Use: none Drug Use: none Marital Status: Housing Status: lives with family Occupation: disabled . Medically disabled. Former smoker (Quit 2013) Laboratory Results Past 24 Hours 05/06/17 07:20 Test 05/05/17 14:16 05/05/17 17:17 05/05/17 20:16 05/06/17 02:00 Bedside Glucose 98 mg/dl (70-99) 73 mg/dl (70-99) 237 mg/dl (70-99) 269 mg/dl (70-99) Test 05/06/17 07:20 05/06/17 08:00 05/06/17 11:16 Anion Gap 12.0 mmol/L (3-11) Est Creatinine Clear Calc Drug Dose 14.0 ml/min Estimated GFR () 10.3 Estimated GFR (Non- 8.9 BUN/Creatinine Ratio 7.2 (10-20) Calcium Level 8.9 mg/dl (8.5-10.1) Magnesium Level 2.5 mg/dl (1.8-2.4) Bedside Glucose 209 mg/dl (70-99) 116 mg/dl (70-99) Allergies Coded Allergies: Codeine (Verified Allergy, Intermediate, NAUSEA AND VOMITING, 04/18/17) QUESTIONABLE ALLERGY, STILL QUESTIONABLE BUT MD Villafuerte/David SHONDA WITH COD 02/20/17 Tigecycline (Verified Allergy, Mild, ?RASH, 04/18/17) Clindamycin (Verified Allergy, Unknown, Unknown, 04/29/17) Penicillins (Verified Allergy, Unknown, PT HAS HAD MEFOXIN W/OUT A PROBLEM , 04/18/17) HAD MEFOXIN W/O PROBLEM Ciprofloxacin (Verified Adverse Reaction, Intermediate, nausea,vomiting, generalized weakness, 04/18/17) Morphine (Verified Adverse Reaction, Intermediate, TREMBLING,NAUSEA AND VOMITING, 04/18/17) Opioid Analgesics (Verified Adverse Reaction, Intermediate, "ALL RX PAIN MEDS CAUSE SEVERE NAUSEA", 04/18/17) Levofloxacin (Verified Adverse Reaction, Mild, Cipro/Levaquin (IV & po) = N & V, 04/18/17) Oxycodone (Verified Adverse Reaction, Unknown, N/V/D, 04/18/17) SPOKE WITH PATIENT ON 07/29/15, DOES NOT REMEMBER ANY DIFFICULTY BREATHING JUST HIT HIM HARD. Medications Current Inpatient Medications Medications (Trade) Dose Ordered Sig/Etta Route Start Time Stop Time Status Last Admin Dose Admin Al Hydrox/Mg Hydrox/Simethicone (Maalox Max Susp) 15 ml Q4H PRN PO 04/29/17 21:30 05/29/17 21:29 Magnesium Hydroxide (Milk Of Magnesia Susp) 30 ml Q12H PRN PO 04/29/17 21:30 05/29/17 21:29 Ondansetron HCl (Zofran Inj) 4 mg Q6H PRN IV 04/29/17 21:30 05/29/17 21:29 Polyethylene (Miralax Powder Packet) 17 gm DAILY PRN PO 04/29/17 21:30 05/29/17 21:29 Glucose (Glucose 40% Gel) 15-30 GRAMS 15 GRAMS... UD PRN PO 04/29/17 22:00 05/29/17 21:59 Glucose (Glucose Chew Tab) 4-8 Tablets 4 Tabl... UD PRN PO 04/29/17 22:00 05/29/17 21:59 05/05/17 17:31 4 TABS Dextrose (Dextrose 50% 50ML Syringe) 25-50ML OF 50% DW IV FOR... UD PRN IV 04/29/17 22:00 05/29/17 21:59 Glucagon (Glucagon Inj) 1 mg UD PRN SQ 04/29/17 22:00 05/29/17 21:59 Atorvastatin Calcium (Lipitor Tab) 40 mg HS PO 04/30/17 21:00 05/30/17 20:59 Future hold 05/05/17 22:06 40 MG Bupropion HCl (Wellbutrin-Sr Tab) 200 mg QPM PO 04/30/17 21:00 05/30/17 20:59 Future hold 05/05/17 22:06 200 MG Clopidogrel Bisulfate (plAVix TAB) 75 mg Q2D@0900 PO 04/30/17 09:00 05/30/17 08:59 Future hold 05/06/17 08:26 75 MG Levothyroxine Sodium (Synthroid Tab) 112 mcg DAILYBB PO 04/30/17 06:00 05/30/17 05:59 Future hold 05/06/17 05:59 112 MCG Miscellaneous Information (Order Awaiting Action) 1 ea QS N/A 04/30/17 00:00 05/30/17 00:00 Miscellaneous Information (Order Awaiting Action) 1 ea QS N/A 04/30/17 00:00 05/30/17 00:00 Sevelamer HCl (Renagel Tab) 1,600 mg TID PO 04/30/17 09:00 05/30/17 08:59 Future hold 05/06/17 08:26 1,600 MG Miscellaneous Information (Order Awaiting Action) 1 ea QS N/A 04/30/17 00:00 05/30/17 00:00 Miscellaneous Information (Consult Glycemic Management Pharmacy) 1 ea UD PRN N/A 04/30/17 10:45 05/30/17 10:44 Amlodipine Besylate (Norvasc Tab) 2.5 mg Q48H PO 05/03/17 08:00 06/02/17 07:59 05/05/17 14:22 2.5 MG Guaifenesin (Robitussin Sugar Free Syrup) 100 mg Q6H PRN PO 05/03/17 12:30 06/02/17 12:29 05/04/17 08:07 100 MG Doxycycline Hyclate (Vibramycin Cap) 100 mg BID PO 05/04/17 18:00 05/06/17 17:59 05/06/17 08:26 100 MG Albuterol/ Ipratropium (Combivent Respimat Inh) 1 puffs QID INH 05/05/17 13:00 06/04/17 12:59 05/06/17 08:26 1 PUFFS Albuterol/ Ipratropium (Duoneb) 3 ml Q2H PRN INH 05/05/17 08:30 06/04/17 08:29 Furosemide (Lasix Tab) 80 mg Q12H PO 05/05/17 13:00 06/04/17 12:59 05/06/17 01:29 80 MG Metoprolol Tartrate (Lopressor Tab) 50 mg BID@0100,1300 PO 05/05/17 13:00 06/04/17 12:59 05/06/17 01:33 50 MG Gabapentin (Neurontin Cap) 100 mg BID@0100,1300 PO 05/05/17 13:00 06/04/17 12:59 05/06/17 01:29 100 MG Calcium Acetate (Phoslo Cap) 667 mg TIDM PO 05/05/17 17:00 06/04/17 16:59 05/06/17 08:26 667 MG Prednisone (PredniSONE TAB) 30 mg QAM PO 05/06/17 09:00 06/05/17 08:59 05/06/17 08:26 30 MG Insulin Aspart (novoLOG INSULIN PUMP) 1 ea ACHS N/A 05/06/17 09:30 06/05/17 09:29 05/06/17 10:40 1 EA Insulin Aspart (novoLOG ASPART) SLIDING SCALE PRN PRN SC 05/06/17 09:30 06/05/17 09:29 Impression (1) Altered level of consciousness (2) Sepsis (3) Hypotension arterial (4) Tracheomalacia (5) End-stage renal disease on hemodialysis Patient admitted to the hospital w/ presumed sepsis syndrome. He has a history of severe tracheal malacia with chronic bronchiectasis. He is now on broad spectrum antibiotics. Blood cultures are pending. CXR with mild congestive changes and bibasilar infiltrates PMH - ESRD due to diabetic nephropathy on IHD since 12/25 (HD TTS at [facility] - 4 hrs 2K 2Ca F180NR Qb 450 cc/min HCO3 34 EDW 83 kg), IDDM, HTN , PVD s/p R femoral artery bypass, anemia, hypothyroidism, hypercholesterolemia , bipolar disorder, COPD w/ severe tracheomalacia and chronic bronchiectasis ( quit smoking ~ 2013). Recommendations --had dialysis yesterday, currently blood pressure electrolyte and volume status acceptable --Avoid further IV fluid --continue on Nephrocaps and oral phosphate binders. --Hgb is acceptable. No acute indication for GINO at this time. --will have dialysis tomorrow hopefully at as an outpatient if discharged today --antibiotic switched to doxycycline 100 b.i.d. and on taper dose of prednisone Will follow
--- NOTE | 2017-05-06 14:23 | Pharmacy Progress Note ---
Pharmacy Glycemic Short Note 2 Date of Service May 06, 2017. OUTPATIENT ANTIDIABETIC REGIMEN: * NovoLog SQ insulin pump * [place] Sumner[place] * Basal rates ~ 14.4 units/day * Bolus CF = 20mg/dl/unit * CR = 1 unit for every 12g CHO consumed * A1c of 6% is somewhat unreliable secondary to HD and altered RBC turnover rate. Regardless, it is likely somewhat accurate as patient has frequent hypoglycemia and over-treats/over boluses on his pump. Pt likes to maintain A1c of 6% despite realistic patient specific goal A1c around 8% ASSESSMENT: 05/04/17 * Pt transitioned from IV insulin infusion to SQ basal bolus insulin regimen last night. * Pt was going to transition from IV to outpatient pump but instead was changed to SQ basal bolus secondary to concerns on his ability to manage his pump, especially with prednisone on board. * Order was for drip to stop whenever held per calculator after the dose of Lantus 25 units given. IV insulin infusion continued all night and was eventually held this morning when BSG 119, 89 mg/dl. * BSGs all remain below 100 mg/dl since stopping IV insulin infusion. Will empirically reduce next Lantus dose to prevent hypoglycemia. * Solumedrol stopped on 05/02 PM and changed to prednisone daily on 05/03 * PO intake remains poor 05/05/17 * Mr. Clark was transitioned off the insulin drip yesterday and received 33 units of SQ insulin yesterday with BSGs 98-296 mg/dL * Changes to insulin resistance: * PO intake increased significantly * Fasting BSG 254 mg/dL - will give additional 5 units of Lantus, especially since once daily prednisone still on board * Postprandial BSGs okay - continue same CF/CR for now as they are already fairly aggressive 05/06/17 * Mr. Clark received only 5 units of Lantus yesterday b/c he refused his 20 units in the evening * His BSGs were elevated this AM secondary to above * I scheduled a dose of Lantus for this AM but the nurse reported that he was refusing it because he wanted his pump back on. We held his pump a few days ago because he was unable to manage it on his own (dropping things, etc). The nurse reports today that he is up walking the halls and should be able to manage it without difficulties. I am okay with resuming it at this point since he is able to manage it. Will just need to monitor BSGs closely with the prednisone still on board. PLAN FOR INPATIENT GLYCEMIC CONTROL: * Hold off on basal insulin this AM - patient refusing * Resume insulin pump with patient's own settings. Patient to sign patient agreement as per policy.
[2017-05-06 15:07] VITALS: BP 159/92; PULSE 81; TEMP 36.4; O2SAT 93
[2017-05-06] MEDS ORDERED: IPRASOL4 INH (16:36)
[2017-05-06] MEDS ORDERED: PRD10 PO (16:36)
--- NOTE | 2017-05-06 16:52 | Discharge Instructions ---
Discharge Instructions Date of Service May 06, 2017. Admission Reason for Admission: Change In Mental Status Discharge Discharge Diagnosis / Problem: Sepsis secondary to HCAP Discharge Goals Goal(s): Decrease discomfort, Improve function, Therapeutic intervention Activity Recommendations Activity Limitations: as noted below Lifting Limitations: gradually increase as tolerated Exercise/Sports Limitations: until after follow-up appointment Shower/Bathe: no limitations . Instructions / Follow-Up Instructions / Follow-Up You were treated in the hospital for a severe infection that most likely originated in your lungs. You were treated with strong antibiotics for a total of 7 days and completed the last dose this evening. You also required inhalers and steroids to help with your breath. Your sugars were also significantly elevated and to control them you needed to be on around the clock intravenous insulin. We were able to get your sugars under control and have you leave back on your insulin pump. You also received all your regular Dialysis visits and will resume your regular dialysis schedule when you leave the hospital. Follow Up: - Please follow up with Dr. Bland on Tuesday or the earliest possible time for a follow up appointment - Please follow up with Dr. Ojeda from Pulmonology in the next 1-2 weeks - Go to your regular Dialysis appointments starting tomorrow Medications: - You have completed your course of antibiotics at this time - Duonebs 0.5mg/3ml - treatment 4 times daily --> You were provided with 40 vials - Prednisone 10mg Tablets- Take 3 pills each morning for the next 2 days, Take 2 pills each morning for the following 3 days, and Take 1 pill each morning the following 3 days --> Best to take with breakfast because it can be hard on your stomach Return to the ER immediately for worsening or persistent chest pain, abdominal pain, vomiting, fevers, chest pains, difficulty breathing, worsening of your condition, or as needed. Current Hospital Diet Patient's current hospital diet: Renal Diet, Diabetes Type 1 Diet Discharge Diet Recommended Diet: AHA Diet (Heart Healthy), Low Sodium Diet (2gm Na), Diabetes Type 2 Diet Pending Studies Studies pending at discharge: no Laboratory Results Hemoglobin A1c Test 04/30/17 06:08 Range/Units Estimated Average Glucose 128 mg/dl Hemoglobin A1c 6.1 H 4.5-5.6 % Medical Emergencies . Who to Call and When: Medical Emergencies: If at any time you feel your situation is an emergency, please call 911 immediately. . Non-Emergent Contact Non-Emergency issues call your: Primary Care Provider . . "Provider Documentation" section prepared by Raad Gibson. . VTE Core Measure Inpt VTE Proph given/why not?: Unfractionated heparin SQ
[2017-05-06 16:53] VITALS: BP 159/92; PULSE 81; TEMP 36.4; O2SAT 93
[2017-05-07] MEDS ORDERED: NovoLOG INSULIN PUMP ONE (02:00)
--- NOTE | 2017-05-07 18:25 | Progress Note ---
Progress Note Date of Service May 06, 2017. Progress Note This note will be attached to resident's discharge note on May 06, 2017 Attending Resident Physician Supervision Note: I independently interviewed and examined the patient and verified the dunn history and physical, reviewed labs and image studies, discussed the case with the resident and agree with the findings and care plan with some clarifications in below: Subjective: Generally feeling better, less fatigue, cough and wheezing is much better, deny fevers, has been up and walk independently with his walker on the hallway, he is awake alert orientated, 3, conversational, seems has good insight of his medical conditions ROS: Constitutional: denies: fever Respiratory: no obvious shortness of breath Cardiovascular: denies chest pain Gastrointestinal/Abdominal: no abdominal pain Objective: Vital Signs Reviewed General Appearance: no apparent distress, conversational Neck: supple, no carotid bruits Respiratory/Chest: chest non-tender, + rales, + wheezing, but is better Cardiovascular: + systolic murmur (4/6 murmur) Abdomen: normal bowel sounds, non tender, soft Neurologic/Psychiatric: alert, oriented x 3 Labs and Images reviewed and discussed Assessment/Plan 51 year old male admitted because of sepsis likely secondary to pneumonia with acute loss of consciousness and changes on CXR concerning for a hospital acquired PNA/infectious bronchiectasis Past medical history of DM, COPD, ESRD on dialysis, hx of PE, Bipolar and hypothyroidism Sepsis most likely secondary to infectious bronchiectasis/HAP , stable improving history of severe tracheomalacia/ chronic bronchiectasis, COPD and positive resp culture with ESBL 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 XYLOSOXIDANS in 2016 DKA in setting of acute infection and no insulin pump; insulin pump restarted , blood glucose fairly controlled Elevated troponin, possible NSTEMI ACS II , stable Chronic diastolic CHF, stable Antibiotic adjusted by an infectious disease, continue oral Doxy upon discharge , continue tapering steroid, continue DuoNeb, Per therapist the patient initially need rehab, has requested briefcase sewer helpful in a discharge plan, has discussed with patient and family, on the day of discharge patient significant improving he was up and walk by himself with his walker, awake alert and orientated, he definitely requests to go home, we have tried to contact patient's several times yesterday and the day on discharge, left message for her to call back, we never get her call back. Patient is high risk for readmission, he is potential good for the rehab, however patient wanted to go home with risk of readmission and conditions getting worse. Patient was discharged on May 06, 2017
== END 2017-05-06 18:09 | disposition home health service (06) | DRG 871 ==
LOC: EDBD 18:30 → C.EDC 18:31 → C.MSICU 21:24 → ENRESERV 21:34 → C.2E 04-30 04:19 → ENRESERV 05-04 18:10 → C.MS2W 05-04 19:35
PROVIDERS: ADMIT Hospitalist; ATTEND Hospitalist
DX: A41.9 Sepsis, unspecified organism (principal); J18.9 Pneumonia, unspecified organism; N18.6 End stage renal disease; I21.A1 Myocardial infarction type 2; E10.10 Type 1 diabetes mellitus with ketoacidosis without coma; J47.0 Bronchiectasis with acute lower respiratory infection; J44.0 Chronic obstructive pulmonary disease with (acute) lower respiratory infection; I13.2 Hypertensive heart and chronic kidney disease with heart failure and with stage 5 chronic kidney disease, or end stage renal disease; I50.32 Chronic diastolic (congestive) heart failure; J39.8 Other specified diseases of upper respiratory tract; Y95 Nosocomial condition; Z99.2 Dependence on renal dialysis; I25.10 Atherosclerotic heart disease of native coronary artery without angina pectoris; I35.0 Nonrheumatic aortic (valve) stenosis; E10.22 Type 1 diabetes mellitus with diabetic chronic kidney disease; E10.42 Type 1 diabetes mellitus with diabetic polyneuropathy; E10.51 Type 1 diabetes mellitus with diabetic peripheral angiopathy without gangrene; E03.9 Hypothyroidism, unspecified; E78.00 Pure hypercholesterolemia, unspecified; D64.9 Anemia, unspecified; F31.9 Bipolar disorder, unspecified; Z86.711 Personal history of pulmonary embolism; Z86.74 Personal history of sudden cardiac arrest; Z87.01 Personal history of pneumonia (recurrent); Z86.19 Personal history of other infectious and parasitic diseases; Z87.891 Personal history of nicotine dependence; Z95.820 Peripheral vascular angioplasty status with implants and grafts; Z89.411 Acquired absence of right great toe; Z90.49 Acquired absence of other specified parts of digestive tract; Z79.02 Long term (current) use of antithrombotics/antiplatelets; Z79.4 Long term (current) use of insulin; Z79.51 Long term (current) use of inhaled steroids; Z79.899 Other long term (current) drug therapy; Z88.0 Allergy status to penicillin; Z88.1 Allergy status to other antibiotic agents; Z88.5 Allergy status to narcotic agent; Z82.49 Family history of ischemic heart disease and other diseases of the circulatory system; N25.81 Secondary hyperparathyroidism of renal origin; E10.621 Type 1 diabetes mellitus with foot ulcer; R65.21 Severe sepsis with septic shock

== ENCOUNTER 2017-05-07 15:52 | Emergency (ER) | payer OTHER, BC ==
[~2017-05-07] VITALS: Ht 175.3 cm; Wt 79.6 kg
[~2017-05-07 15:52] MED LIST changes: -BCTOPO OP; -BUPR200T2 PO; -HYDCR25 TOP; +IPRASOL4 INH; -MOME0.1O3 TOP; -NZRCR TOP; +PRD10 PO; +WLLSR/200 PO
[2017-05-07 16:05] VITALS: TEMP 37; Ht 175.3 cm; Wt 79.6 kg
[2017-05-07 16:11] VITALS: O2SAT 93
[2017-05-07 17:00] LABS: BASO % 0.1 %; BASO ABS # 0.01 K/uL (0-0.2); EOS % 2.3 %; EOS ABS # 0.26 K/uL (0-0.5); HEMATOCRIT 36.7 % (42-52); HEMOGLOBIN 12.5 g/dL (14.0-18.0); IG# 0.07 K/uL (0.00-0.02); LYMPH % 6.6 %; LYMPH ABS # 0.74 K/uL (1.2-3.4); MEAN CELL VOLUME 100.8 fL (80-100); MEAN CORPUSCULAR HEMOGLOBIN 34.3 pg (25-34); MEAN CORPUSCULAR HGB CONC 34.1 g/dl (32-36); MEAN PLATELET VOLUME 10.2 fL (7.4-10.4); MONO % 7.2 %; MONO ABS # 0.81 K/uL (0.11-0.59); NEUT % 83.2 %; NEUT ABS # 9.32 K/uL (1.4-6.5); PLATELET COUNT 222 K/uL (130-400); RED CELL DISTRIBUTION WIDTH CV 14.2 % (11.5-14.5); RED CELL DISTRIBUTION WIDTH SD 52.7 fL (36.4-46.3); WHITE BLOOD COUNT 11.21 K/uL (4.8-10.8)
--- NOTE | 2017-05-07 17:05 | EMERGENCY ROOM VISIT NOTE ---
History Report prepared by Cece: Ashley Quinones Under the Supervision of: Dr. Choco Junior D.O. First contact with patient: 15:54 Stated Complaint: AMS History of Present Illness The patient is a 51 year old male who presents to the Emergency Room with complaints of persistent illness starting yesterday. The patient was discharged from the hospital yesterday after being admitted with pneumonia. He feels that he should not have been discharged yet and is still not feeling well. He reports difficulty controlling his blood sugar. He has a history of diabetes. He is still feeling SOB and has a cough. He denies any abdominal pain, vomiting , or increased leg swelling. He denies any tobacco use. He had dialysis today. He is currently not on antibiotics. Source of History: patient Onset: yesterday Position: other (global) Quality: other (illness) Timing: other (persistent) Associated Symptoms: + cough, + SOB, No vomiting, No abdominal pain Review of Systems See HPI for pertinent positives & negatives. A total of 10 systems reviewed and were otherwise negative. 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 (14) End-stage renal disease on hemodialysis (15) ESRD (end stage renal disease) (16) Gram-positive cocci bacteremia (17) History of diabetic ulcer of foot (18) Hyperparathyroidism due to renal insufficiency (19) Hypertension (20) Hypotension arterial (21) Hypothyroidism (22) infected hematoma R thigh (23) Loss of sensation (24) multipel pna, sepsis (25) multipel pna, sepsis (26) Pneumonia (27) Pulmonary edema (28) Tracheomalacia (29) venous stenosis AVF (30) Weakness Family History FH: heart disease Social History Smoking Status: Never Smoker Alcohol Use: none Drug Use: none Marital Status: Housing Status: lives with family Occupation Status: disabled Current/Historical Medications Scheduled Amlodipine Besylate (Norvasc), 2.5 MG PO 4XWK Atorvastatin (Lipitor), 40 MG PO HS Bupropion Hcl (Wellbutrin Sr), 200 MG PO QPM Cinacalcet (Sensipar), 30 MG PO DAILY Clopidogrel Bisulfate (Clopidogrel), 75 MG PO Q2D Fluticasone Furoate-Vilanterol (Breo Ellipta 200-25 Mcg/INH), 1 PUFF INH DAILY Furosemide (Furosemide), 80 MG PO BID Gabapentin (Gabapentin), 100 MG PO BID Insulin Aspart (novoLOG INSULIN PUMP ), 1 EA N/A UD Levothyroxine Sodium (Levothyroxine Sodium), 112 MCG PO DAILY Metoprolol Tartrate (Lopressor) (Lopressor), 50 MG PO BID Prednisone (Prednisone), 10 MG PO DIRECTED Sevelamer Carbonate (Renvela), 1,600 MG PO TID Umeclidinium [place] (Incruse Ellipta), 1 PUFF INH DAILY Scheduled PRN Ipratropium-Albuterol (Duoneb), 3 ML INH QID PRN for SOB/Wheezing Allergies Coded Allergies: Codeine (Verified Allergy, Intermediate, NAUSEA AND VOMITING, 05/07/17) QUESTIONABLE ALLERGY, STILL QUESTIONABLE BUT MD D/C SHONDA WITH COD 02/20/17 Tigecycline (Verified Allergy, Mild, ?RASH, 05/07/17) Clindamycin (Verified Allergy, Unknown, Unknown, 05/07/17) Penicillins (Verified Allergy, Unknown, PT HAS HAD MEFOXIN W/OUT A PROBLEM , 05/07/17) HAD MEFOXIN W/O PROBLEM Ciprofloxacin (Verified Adverse Reaction, Intermediate, nausea,vomiting, generalized weakness, 05/07/17) Morphine (Verified Adverse Reaction, Intermediate, TREMBLING,NAUSEA AND VOMITING, 05/07/17) Opioid Analgesics (Verified Adverse Reaction, Intermediate, "ALL RX PAIN MEDS CAUSE SEVERE NAUSEA", 05/07/17) Levofloxacin (Verified Adverse Reaction, Mild, Cipro/Levaquin (IV & po) = N & V, 05/07/17) Oxycodone (Verified Adverse Reaction, Unknown, N/V/D, 05/07/17) SPOKE WITH PATIENT ON 07/29/15, DOES NOT REMEMBER ANY DIFFICULTY BREATHING JUST HIT HIM HARD. Physical Exam Vital Signs Date Time Temp Pulse Resp B/P (MAP) Pulse Ox O2 Delivery O2 Flow Rate FiO2 05/07/17 19:32 92 22 132/71 92 05/07/17 18:38 97 22 126/69 94 Nasal Cannula 4.0 05/07/17 17:27 90 22 113/69 92 Nasal Cannula 4.0 05/07/17 16:28 89 05/07/17 16:11 93 Nasal Cannula 4.0 05/07/17 16:05 37.0 91 22 122/77 85 Room Air 05/07/17 16:05 85 Room Air Physical Exam GENERAL: Patient is awake, alert, non anxious appearing and comfortable. EYES: The conjunctivae are clear. The pupils are round and reactive. EARS, NOSE, MOUTH AND THROAT: The nose is without any evidence of any deformity. Mucous membranes are moist tongue is midline NECK: The neck is nontender and supple. RESPIRATORY: Lung sounds diminished throughout with rales in all lung infante. CARDIOVASCULAR: Regular rate and rhythm noted to auscultation. Blowing systolic murmur was appreciated. GASTROINTESTINAL: Abdomen is mildly distended, but soft. There was no guarding, tenderness, or rigidity. MUSCULOSKELETAL/EXTREMITIES: There is no evidence of gross deformity full range of motion is noted in the hips and shoulders SKIN: Pedal edema bilaterally. Dialysis fistula was in the left forearm. There was a palpable thrill and bruit noted to auscultation. NEUROLOGIC: Patient is awake alert and oriented x3 Medical Decision & Procedures ER Provider Diagnostic Interpretation: X-ray results as stated below per interpretation by me and the radiologist. CHEST ONE VIEW PORTABLE CLINICAL HISTORY: Sepsis COMPARISON STUDY: Chest CT April 30, 2017 and chest radiograph May 02, 2017. FINDINGS: There is no pneumothorax. Scoliosis of the thoracolumbar spine is incidentally noted. Cardiomediastinal silhouette is stable. Reticulonodular interstitial thickening has slightly improved. Bibasilar opacities persist. IMPRESSION: 1. Persistent bibasilar airspace opacities which may reflect pneumonia or atelectasis. Radiographic follow up to ensure resolution is recommended. 2. Interval improvement in reticulonodular interstitial thickening. Electronically signed by: Nav Rausch M.D. 05/07/2017 5:45 PM Dictated Date/Time: 05/07/2017 5:43 PM Laboratory Results 05/07/17 16:29 Red Blood Count 3.64, Mean Corpuscular Volume 100.8, Mean Corpuscular Hemoglobin 34.3, Mean Corpuscular Hemoglobin Concent 34.1, Mean Platelet Volume 10.2, Neutrophils (%) (Auto) 83.2, Lymphocytes (%) (Auto) 6.6, Monocytes (%) ( Auto) 7.2, Eosinophils (%) (Auto) 2.3, Basophils (%) (Auto) 0.1, Neutrophils # ( Auto) 9.32, Lymphocytes # (Auto) 0.74, Monocytes # (Auto) 0.81, Eosinophils # ( Auto) 0.26, Basophils # (Auto) 0.01 05/07/17 16:29 Test 05/07/17 16:29 05/07/17 16:37 White Blood Count 11.21 K/uL (4.8-10.8) Red Blood Count 3.64 M/uL (4.7-6.1) Hemoglobin 12.5 g/dL (14.0-18.0) Hematocrit 36.7 % (42-52) Mean Corpuscular Volume 100.8 fL (80-100) Mean Corpuscular Hemoglobin 34.3 pg (25-34) Mean Corpuscular Hemoglobin Concent 34.1 g/dl (32-36) Platelet Count 222 K/uL (130-400) Mean Platelet Volume 10.2 fL (7.4-10.4) Neutrophils (%) (Auto) 83.2 % Lymphocytes (%) (Auto) 6.6 % Monocytes (%) (Auto) 7.2 % Eosinophils (%) (Auto) 2.3 % Basophils (%) (Auto) 0.1 % Neutrophils # (Auto) 9.32 K/uL (1.4-6.5) Lymphocytes # (Auto) 0.74 K/uL (1.2-3.4) Monocytes # (Auto) 0.81 K/uL (0.11-0.59) Eosinophils # (Auto) 0.26 K/uL (0-0.5) Basophils # (Auto) 0.01 K/uL (0-0.2) RDW Standard Deviation 52.7 fL (36.4-46.3) RDW Coefficient of Variation 14.2 % (11.5-14.5) Immature Granulocyte % (Auto) 0.6 % Immature Granulocyte # (Auto) 0.07 K/uL (0.00-0.02) Erythrocyte Sedimentation Rate 11 mm/hr (0-14) Prothrombin Time 10.7 SECONDS (9.0-12.0) Prothromb Time International Ratio 1.0 (0.9-1.1) Activated Partial Thromboplast Time 28.3 SECONDS (21.0-31.0) Partial Thromboplastin Ratio 1.1 Venous Blood pH 7.42 (7.36-7.41) Venous Blood Partial Pressure CO2 51 mmHg (38.0-50.0) Venous Blood Partial Pressure O2 28 mmHg Venous Blood HCO3 32 mmol/L Venous Blood Oxygen Saturation < 60.0 % Venous Blood Base Excess 6.4 mEq/L Anion Gap 12.0 mmol/L (3-11) Est Creatinine Clear Calc Drug Dose 18.2 ml/min Estimated GFR () 15.1 Estimated GFR (Non- 13.0 BUN/Creatinine Ratio 5.7 (10-20) Calcium Level 7.8 mg/dl (8.5-10.1) Phosphorus Level 2.6 mg/dl (2.5-4.9) Magnesium Level 2.2 mg/dl (1.8-2.4) Total Bilirubin 0.7 mg/dl (0.2-1) Aspartate Amino Transf (AST/SGOT) 26 U/L (15-37) Alanine Aminotransferase (ALT/SGPT) 19 U/L (12-78) Alkaline Phosphatase 146 U/L (45-117) Total Creatine Kinase 65 U/L (39-308) Creatine Kinase MB 3.5 ng/ml (0.5-3.6) Creatine Kinase MB Ratio 5.4 (0-3.0) Troponin I 1.130 ng/ml (0-0.045) C-Reactive Protein 1.29 mg/dl (0-0.29) Pro-B-Type Natriuretic Peptide > 74144 pg/ml (0-900) Total Protein 6.4 gm/dl (6.4-8.2) Albumin 2.7 gm/dl (3.4-5.0) Globulin 3.7 gm/dl (2.5-4.0) Albumin/Globulin Ratio 0.7 (0.9-2) Bedside Lactic Acid Venous 2.00 mmol/L (0.90-1.70) Laboratory results per my review. ECG Per My Interpretation Indication: SOB/dyspnea Rate (beats per minute): 87 Rhythm: normal sinus Findings: ST depression (Inferior, Lateral), no ectopy Comparison ECG Date: 01-May-2017 Change: no significant change ED Course 1556: The patient was evaluated in room C9. A complete history and physical examination were performed. 174: I discussed the patient's case with MARINA Godinez hospitalist. The patient will be evaluated for further management. 175: Upon reevaluation, the patient is stable. I discussed results and treatment plan with him. He verbalizes agreement and understanding. The patient will be evaluated for further management and care. 1900: The patient was discharged home at the request of the evaluating team. Medical Decision Prior records/ancillary studies reviewed. Triage Nursing notes reviewed. The patient's history was concerning for respiratory difficulties. Differential diagnosis: Etiologies such as infections, reactive airway disease, pneumonia, pneumothorax , COPD, CHF, cardiac ischemia, pulmonary embolism, musculoskeletal, gastrointestinal, as well as others were entertained. The patient is a 51-year-old male who presented to the emergency department for evaluation of generalized weakness and shortness of breath. The patient is well known to our department. He was recently our facility and was admitted for pneumonia. The patient was discharged yesterday but returns today after dialysis because of feeling ill. The patient has multiple medical problems and is normally very ill. The patient appears to be in pulmonary edema but he recently had dialysis so I am unsure if he would respond to diuretics at this time. The patient was also concerned because his blood sugar was elevated. Normally this patient does have low blood sugars I feel that he is concerned about the level of the blood sugar at this time. I discussed the patient's laboratory and radiographic studies with him. He was treated with supplemental oxygen. He was feeling much better on subsequent reevaluation. I discussed his case with the on-call [facility] hospitalist group. They evaluated the patient but felt he was stable for discharge. The patient was encouraged to follow-up for dialysis and continue all medications as prescribed. He was also encouraged to return to the emergency department immediately if symptoms change worsen or the need arises. Medication Reconcilliation Current Medication List: was personally reviewed by me Blood Pressure Screening Patient's blood pressure: Normal blood pressure Blood pressure disposition: Did not require urgent referral Consults Time Called: 1746 Consulting Physician: MARINA Godinez hospitalist Returned Call: [phone] I discussed the patient's case with him. The patient will be evaluated for further management. Impression Primary Impression: SOB (shortness of breath) Additional Impressions: Pulmonary edema Hypoxia NSTEMI (non-ST elevated myocardial infarction) Heart murmur Scribe Attestation The scribe's documentation has been prepared under my direction and personally reviewed by me in its entirety. I confirm that the note above accurately reflects all work, treatment, procedures, and medical decision making performed by me. Departure Information Dispostion Home / Self-Care Referrals No Doctor, Assigned (PCP) Forms HOME CARE DOCUMENTATION FORM, IMPORTANT VISIT INFORMATION Patient Instructions ED Dyspnea Shortness of Breath, Kidney Disease Chronic Dc, My [facility] Additional Instructions Follow-up with your family doctor as scheduled. Rest and avoid any strenuous activity. Continue all medications as prescribed including her oxygen. Return to the emergency department immediately if symptoms worsen or if need arises. Problem Qualifiers Additional Impressions: Pulmonary edema Chronicity: acute Qualified Codes: J81.0 - Acute pulmonary edema
[2017-05-07 17:06] LABS: PTT PATIENT 28.3 SECONDS (21.0-31.0)
[2017-05-07 17:40] LABS: ALBUMIN 2.7 gm/dl (3.4-5.0); ALKALINE PHOSPHATASE 146 U/L (45-117); ALT/SGPT 19 U/L (12-78); AST/SGOT 26 U/L (15-37); BLOOD UREA NITROGEN 27 mg/dl (7-18); CALCIUM 7.8 mg/dl (8.5-10.1); CARBON DIOXIDE 30 mmol/L (21-32); CKMB 3.5 ng/ml (0.5-3.6); GLUCOSE 289 mg/dl (70-99); PHOSPHORUS 2.6 mg/dl (2.5-4.9); SODIUM 132 mmol/L (136-145); TOTAL PROTEIN 6.4 gm/dl (6.4-8.2)
--- NOTE | 2017-05-07 17:46 | DIAGNOSTIC IMAGING REPORT ---
CHEST ONE VIEW PORTABLE CLINICAL HISTORY: Sepsis COMPARISON STUDY: Chest CT April 30, 2017 and chest radiograph May 02, 2017. FINDINGS: There is no pneumothorax. Scoliosis of the thoracolumbar spine is incidentally noted. Cardiomediastinal silhouette is stable. Reticulonodular interstitial thickening has slightly improved. Bibasilar opacities persist. IMPRESSION: 1. Persistent bibasilar airspace opacities which may reflect pneumonia or atelectasis. Radiographic follow up to ensure resolution is recommended. 2. Interval improvement in reticulonodular interstitial thickening. Electronically signed by: Nav Rausch M.D. 05/07/2017 5:45 PM Dictated Date/Time: 05/07/2017 5:43 PM
[2017-05-07 19:32] VITALS: BP 132/71; PULSE 92; O2SAT 92
--- NOTE | 2017-05-08 07:10 | Medical Consult ---
Consultation Note Date of Service May 07, 2017. (Divya Nassar MD) Consultation Note This is a 51 y/o M with h/o of COPD, Type 1 DM, ESRD on hD, PE, Bipolar, Hypothyroidism who presents with complaints of "not feeling well" and trouble managing his blood sugars with his insulin pump. He was discharged yesterday after admission for sepsis 2/2 Pneumonia/infectious bronchiectasis and DKA. On discharge he was at baseline. There were discussions of rehab but patient declined. Today he presents after dialysis where he reports his blood sugars being in the 100s. He says he turned off his pump because his blood sugars were too high while being on the prednisone taper. Overall he feels "not right." He called 911 after he got home from dialysis. He says his shortness of breath is at baseline and "is as good as it's going to get." He denies any new complaints. ROS: Denies chest pain, worsening shortness of breath, abdominal pain, nausea, vomiting. PMH: COPD Type 1 DM ESRD on hD PE Bipolar Hypothyroidism Chronic Diastolic CHF P/E Vitals: HR; 90, RR: 22, B/P: 113/69, PulseOx: 93%, 4L General Appearance: No acute distress Neck: supple, no carotid bruits Respiratory/Chest: Ronchi at the bases, no wheezing Cardiovascular: + blowing systolic murmur (4/6 murmur) Abdomen: normal bowel sounds, non tender, soft Extremities: No edema Neurologic/Psychiatric: awake, alert, oriented x 3 A/P 51 y/o M with multiple comorbidities who presents with general malaise. This is likely secondary to combination of pneumonia, dialysis and other comorbidities. On further discussion, he is most concerned about his blood sugars. In the ED his blood sugar was 289. He is on steroids which would contribute to elevated blood sugars. However, this could be managed at home with his insulin pump. I explained that it may take several weeks to recover from this past admission. Blood work and imaging were reviewed. Patient with minimal white count (11). Troponin elevation to 1.1 is likely secondary to demand mismatch (patient also did have significant troponin elevation, up to 22, this past admission and was trending down prior to admission. He denies chest pain. Elevated BNP is likely chronic with ESRD as opposed to worsening CHF and volume overload. Lung exam is reassuring as is his Chest Xray. I discussed with the patient that he may be able to go home and recover. His blood sugars are manageable and will improve as he weans off his steroids completely. He agrees that he was anxious about his bsg's but would be able to manage them at home. He also agrees that his respiratory status is at baseline. Patient was advised that if bsg continue to increase and become unmanageable with his pump, that he should come back to the ER. He was also advised of the same if he experiences worsening shortness of breath/ wheezing etc. Patient agrees with the plan to go home. He was advised to follow up with his PCP on Tuesday. (Divya Nassar MD) Supervising Note Dr. Dubose I performed a history and physical examination on the patient. I reviewed above note and agree with it. I discussed plan with APC and patient. During my face to face encounter with the patient, I answered all of the patient's questions. Only difference from above was that my exam showed clear breath sounds. Patient recently discharged for pneumonia. Patient reports he is back to his baseline in regards to his breathing. Patient came in mainly concerned over his blood surgar. I explained to hm that his blood sugar will be elevated due to his prednisone, but that this should improve as he tapers the prednsione down. Once this was explained, patient stated that he would like to be sent home. Recommended that he see his PCP next week. (Richard Dubose M.D.)
== END 2017-05-07 19:34 | disposition home or self-care (01) ==
LOC: EDBD 15:52 → C.EDC 15:53
DX: E10.65 Type 1 diabetes mellitus with hyperglycemia (principal); J18.9 Pneumonia, unspecified organism; R01.1 Cardiac murmur, unspecified; I13.2 Hypertensive heart and chronic kidney disease with heart failure and with stage 5 chronic kidney disease, or end stage renal disease; I50.32 Chronic diastolic (congestive) heart failure; E10.22 Type 1 diabetes mellitus with diabetic chronic kidney disease; N18.6 End stage renal disease; Z99.2 Dependence on renal dialysis; J44.9 Chronic obstructive pulmonary disease, unspecified; F31.9 Bipolar disorder, unspecified; E10.42 Type 1 diabetes mellitus with diabetic polyneuropathy; N25.81 Secondary hyperparathyroidism of renal origin; E03.9 Hypothyroidism, unspecified; Z79.02 Long term (current) use of antithrombotics/antiplatelets; Z79.4 Long term (current) use of insulin; Z96.41 Presence of insulin pump (external) (internal); Z88.6 Allergy status to analgesic agent; Z88.1 Allergy status to other antibiotic agents; Z88.0 Allergy status to penicillin; Z88.5 Allergy status to narcotic agent; Z82.49 Family history of ischemic heart disease and other diseases of the circulatory system

== ENCOUNTER 2017-05-17 16:21 | Inpatient (IN) | payer OTHER, BC ==
[~2017-05-17] VITALS: Ht 177.8 cm; Wt 91.3 kg
[2017-05-17] MEDS ORDERED: ALBUT/IPRATROP 3MG/0.5MG NEB 3 ML VIAL INH ONE (16:45)
--- NOTE | 2017-05-17 16:46 | EMERGENCY ROOM VISIT NOTE ---
History Report prepared by Cece: Ronaldo Stone Under the Supervision of: Dr. Dexter Coto M.D. First contact with patient: 16:31 Chief Complaint: SHORTNESS OF BREATH Stated Complaint: SOB History of Present Illness The patient is a 51 year old white male with a past medical history of tracheomalacia, anemia, HTN, bipolar disorder, diabetes, CKD with ERSD, hypothyroidism, pneumonia who presents to the ED with a cc of worsening shortness of breath beginning prior to arrival this afternoon. Positive dry cough. Negative chest pain, worsening leg swelling. He states that he was recently treated for bacterial pneumonia, and was released from the hospital a week ago. The patient notes that he gets dialysis 3 times per week, and he had dialysis earlier this afternoon, but after being brought home after that, his breathing became "exceptionally labored". 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 He states that he is a non-smoker currently. The patient has not been on antibiotics since his discharge a week ago. He states that he wears 4 liters of oxygen at home. Source of History: patient Onset: Earlier this afternoon Position: other (global) Symptom Intensity: "exceptionally labored" Quality: other (shortness of breath) Timing: worsening Associated Symptoms: + cough (dry), No chest pain Note: Negative worsening leg swelling. Review of Systems See HPI for pertinent positives and negatives. A total of ten systems were reviewed and were otherwise negative. 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 (15) End-stage renal disease on hemodialysis (16) ESRD (end stage renal disease) (17) Gram-positive cocci bacteremia (18) History of diabetic ulcer of foot (19) Hyperparathyroidism due to renal insufficiency (20) Hypertension (21) Hypotension arterial (22) Hypothyroidism (23) infected hematoma R thigh (24) Loss of sensation (25) multipel pna, sepsis (26) multipel pna, sepsis (27) Pneumonia (28) Pulmonary edema (29) Septic shock (30) Tracheomalacia (31) venous stenosis AVF (32) Weakness Family History FH: heart disease Social History Smoking Status: Never Smoker Alcohol Use: none Drug Use: none Marital Status: Housing Status: lives with family Occupation Status: disabled Current/Historical Medications Scheduled Amlodipine Besylate (Norvasc), 2.5 MG PO 4XWK Atorvastatin (Lipitor), 40 MG PO HS Bupropion Hcl (Wellbutrin Sr), 200 MG PO QPM Cinacalcet (Sensipar), 30 MG PO DAILY Clopidogrel Bisulfate (Clopidogrel), 75 MG PO Q2D Fluticasone Furoate-Vilanterol (Breo Ellipta 200-25 Mcg/INH), 1 PUFF INH DAILY Furosemide (Furosemide), 80 MG PO BID Gabapentin (Gabapentin), 100 MG PO BID Insulin Aspart (novoLOG INSULIN PUMP ), 1 EA N/A UD Levothyroxine Sodium (Levothyroxine Sodium), 112 MCG PO DAILY Metoprolol Tartrate (Lopressor) (Lopressor), 50 MG PO BID Prednisone (Prednisone), 10 MG PO DIRECTED Sevelamer Carbonate (Renvela), 1,600 MG PO TID Umeclidinium [place] (Incruse Ellipta), 1 PUFF INH DAILY Scheduled PRN Ipratropium-Albuterol (Duoneb), 3 ML INH QID PRN for SOB/Wheezing Allergies Coded Allergies: Codeine (Verified Allergy, Intermediate, NAUSEA AND VOMITING, 05/07/17) QUESTIONABLE ALLERGY, STILL QUESTIONABLE BUT D/C SHONDA WITH COD 02/20/17 Tigecycline (Verified Allergy, Mild, ?RASH, 05/07/17) Clindamycin (Verified Allergy, Unknown, Unknown, 05/07/17) Penicillins (Verified Allergy, Unknown, PT HAS HAD MEFOXIN W/OUT A PROBLEM , 05/07/17) HAD MEFOXIN W/O PROBLEM Ciprofloxacin (Verified Adverse Reaction, Intermediate, nausea,vomiting, generalized weakness, 05/07/17) Morphine (Verified Adverse Reaction, Intermediate, TREMBLING,NAUSEA AND VOMITING, 05/07/17) Opioid Analgesics (Verified Adverse Reaction, Intermediate, "ALL RX PAIN MEDS CAUSE SEVERE NAUSEA", 05/07/17) Levofloxacin (Verified Adverse Reaction, Mild, Cipro/Levaquin (IV & po) = N & V, 05/07/17) Oxycodone (Verified Adverse Reaction, Unknown, N/V/D, 05/07/17) SPOKE WITH PATIENT ON 07/29/15, DOES NOT REMEMBER ANY DIFFICULTY BREATHING JUST HIT HIM HARD. Physical Exam Vital Signs Date Time Temp Pulse Resp B/P (MAP) Pulse Ox O2 Delivery O2 Flow Rate FiO2 05/17/17 20:20 87 22 82/46 100 Nasal Cannula 4.0 05/17/17 19:52 89 22 93/57 100 Nasal Cannula 4.0 05/17/17 19:44 91 22 86/57 99 Nasal Cannula 4.0 05/17/17 19:34 36.8 05/17/17 19:27 87 22 80/51 97 Nasal Cannula 4.0 05/17/17 19:11 88 21 91 Nasal Cannula 4.0 05/17/17 19:01 69/41 05/17/17 19:00 70/47 05/17/17 18:58 69/43 05/17/17 18:57 67/44 05/17/17 18:49 76/52 05/17/17 18:41 92 20 91 05/17/17 18:39 88 20 76/52 92 Nasal Cannula 4.0 05/17/17 18:11 111 26 05/17/17 17:41 111 32 05/17/17 17:36 113 20 100 05/17/17 17:35 110 24 99 Nasal Cannula 3.0 05/17/17 17:01 159/99 05/17/17 16:56 103 20 97 05/17/17 16:53 97 Nasal Cannula 4.0 05/17/17 16:51 104 23 97 05/17/17 16:40 174/94 05/17/17 16:30 103 05/17/17 16:26 169/104 05/17/17 16:21 98 Room Air 05/17/17 16:21 98 Nasal Cannula 4.0 05/17/17 16:21 36.6 101 18 169/104 98 Nasal Cannula 4.0 Physical Exam GENERAL: Awake, alert, NAD, coarse breath sounds. HENT: Normocephalic, atraumatic. EYES: Normal conjunctiva. Sclera non-icteric. NECK: Supple. No nuchal rigidity. FROM. RESPIRATORY: Diffuse rales throughout. Rales heard over anterior neck. No stridor. CARDIAC: RRR, no MRG ABDOMEN: Soft, NTND, BS+ MSK: No chest wall TTP. Some bilateral lower extremity edema, right greater than left. Incisional scar over right medial lower leg consistent with graft harvest. Good palpable thrill in AVR in LUE. NEURO: GCS 15, CN 2-12 intact, moves all 4s on command SKIN: No rash or jaundice noted. Medical Decision & Procedures ER Provider Diagnostic Interpretation: X-ray: Per my interpretation, radiologist review. CHEST 2 VIEWS ROUTINE HISTORY: EVALUATE RESPIRATORY DISTRESS.DYSPNEA COMPARISON: Chest 05/07/2017. FINDINGS: No pneumothorax. Trace right and small left pleural effusion. Slight progression of the diffuse reticulonodular interstitial thickening most pronounced at the lung bases. The heart is mildly enlarged. No pneumothorax. Bibasilar densities, unchanged. IMPRESSION: Slight progression of the diffuse reticulonodular interstitial thickening most pronounced at the lung bases. This suggests an infectious bronchiolitis. There is now a trace right and small left pleural effusion. Bibasilar densities, unchanged. Electronically signed by: Vance Henriquez M.D. 05/17/2017 5:40 PM Dictated Date/Time: 05/17/2017 5:36 PM Laboratory Results Test 05/17/17 17:41 05/17/17 19:57 Pro-B-Type Natriuretic Peptide > 78448 pg/ml (0-900) Globulin 4.7 gm/dl (2.5-4.0) Albumin/Globulin Ratio 0.7 (0.9-2) Procalcitonin 0.51 ng/ml (0-0.5) Random Cortisol 20.67 mcg/dl Ammonia 20.3 umol/L (11-32) Date/Time Source Procedure Growth Status 05/17/17 00:00 Nasal MRSA DNA Surveillance Screen - Final Specimen Negative for MRSA by DNA Probe Complete Laboratory results reviewed by me Medications Administered Medications (Trade) Dose Ordered Sig/Etta Route Start Time Stop Time Status Last Admin Dose Admin Albuterol/ Ipratropium (Duoneb) 12 ml ONE ONCE INH 05/17/17 16:45 05/17/17 16:46 DC 05/17/17 17:35 12 ML Sodium Chloride 500 ml @ 999 mls/hr Q31M STAT IV 05/17/17 18:57 05/17/17 19:27 DC 05/17/17 18:57 999 MLS/HR Cefepime HCl 2000 mg/Dextrose 112.5 ml @ 200 mls/hr ONE STAT IV 05/17/17 18:57 05/17/17 19:30 DC 05/17/17 19:45 200 MLS/HR Levofloxacin (Levaquin / D5W) 750 mg NOW ONCE IV 05/17/17 19:00 05/17/17 19:01 DC 05/17/17 19:25 750 MG Vancomycin HCl 1750 mg/Sodium Chloride 535 ml @ 200 mls/hr ONE ONCE IV 05/17/17 19:45 05/17/17 22:25 DC 05/17/17 20:04 200 MLS/HR Albuterol/ Ipratropium (Duoneb) 3 ml QID PRN INH 05/17/17 20:15 06/16/17 20:14 05/19/17 04:00 3 ML Miscellaneous Information (Dc All Previously Ordered Diabetes Meds) 1 ea ONE ONCE N/A 05/17/17 20:15 05/17/17 20:53 DC 05/17/17 23:52 1 EA Dextrose (Dextrose 50% 50ML Syringe) 25-50ML OF 50% DW IV FOR... UD PRN IV 05/17/17 20:15 06/16/17 20:14 05/19/17 01:05 25 ML Norepinephrine Bitartrate 8 mg/ Dextrose 508 ml @ 0 mls/hr Q0M PRN IV 05/17/17 20:31 06/16/17 23:59 05/19/17 09:49 128 MLS/HR ECG Per My Interpretation Indication: SOB/dyspnea Rate (beats per minute): 99 Rhythm: normal sinus Findings: T-wave inversion (Inferior), other (normal intervals, normal axis) Change: no significant change (from 05/07/17) ED Course 1636: The patient was evaluated in room B5. A complete history and physical exam was performed. 0: Upon reexamination, the patient was resting. I discussed the test results and treatment plan with the patient and family. The patient will be evaluated for further management. 1925: Dr. Hyde - [facility] environmental property assessor - was made aware of the patient. The patient will be evaluated for further treatment and disposition. Medical Decision The patient is a 51 year old white male with a past medical history of tracheomalacia, anemia, HTN, bipolar disorder, diabetes, CKD with ERSD, hypothyroidism, pneumonia who presents to the ED with a cc of worsening shortness of breath beginning prior to arrival this afternoon. Positive dry cough. Negative chest pain, worsening leg swelling. Differential diagnosis: Etiologies such as infections, reactive airway disease, pneumonia, pneumothorax , COPD, CHF, cardiac ischemia, pulmonary embolism, musculoskeletal, gastrointestinal, as well as others were entertained. Patient was seen and evaluated at the bedside. Patient does have a fairly complex past medical history. Patient is a dialysis patient does receive a Tuesday. Patient did receive dialysis today which is for the normal course of time. Patient did complain of some shortness of breath. Patient does complain of difficulty with complete inspiration at baseline. Patient does have mild lower extremity swelling which is chronic at baseline. Patient does have some mild asymmetry in his lower extremity swelling however this is normal for him as he did have a vein graft harvest what he describes as some sort of bypass in his right lower extremity. Patient's extremities are warm. The patient does have coarse rhonchi on exam and audible gurgling at the bedside. Patient had blood work completed, EKG, troponin, chest x-ray, BNP. Patient also did receive a breathing treatment. Patient did have an episode of hypotension. Patient was given 500 cc bolus. Of note the patient did receive his full amount of dialysis which may be contributory. Given the patient's productive sputum, coarse rhonchi on exam, and elevated white count did treat the patient for possible healthcare associated pneumonia as the patient is high risk. The medicine service was paged. Medicine service saw patient. Discussed w/ residence life director. CVC line placed and admitted to ICU. Medication Reconcilliation Current Medication List: was personally reviewed by me Blood Pressure Screening Patient's blood pressure: Elevated blood pressure Blood pressure disposition: Elevated BP felt to be situational Consults Time Called: 1909 Consulting Physician: Dr. Barrett Benoit environmental property assessor Returned Call: 1914 Dr. Barrett Benoit environmental property assessor - was made aware of the patient. The patient will be evaluated for further treatment and disposition. Impression Primary Impression: HCAP (healthcare-associated pneumonia) Additional Impressions: Hypotension SOB (shortness of breath) Sepsis Critical Care I have personally spent greater than 35 minutes of critical care time in the direct management of this patient. This includes bedside care, interpretation of diagnostic studies, and testing, discussion with consultants, patient, and family members, and other required patient management activities. This 35 minutes is in excess of all separately billable procedures. Scribe Attestation The scribe's documentation has been prepared under my direction and personally reviewed by me in its entirety. I confirm that the note above accurately reflects all work, treatment, procedures, and medical decision making performed by me. Departure Information Dispostion Being Evaluated By Hospitalist Referrals No Doctor, Assigned (PCP) Patient Instructions My [facility] Problem Qualifiers Additional Impressions: Hypotension Hypotension type: unspecified hypotension type Qualified Codes: I95.9 - Hypotension, unspecified Sepsis Sepsis type: sepsis due to unspecified organism Qualified Codes: A41.9 - Sepsis, unspecified organism
[2017-05-17 17:35] VITALS: PULSE 110; O2SAT 99
--- NOTE | 2017-05-17 17:42 | DIAGNOSTIC IMAGING REPORT ---
CHEST 2 VIEWS ROUTINE HISTORY: EVALUATE RESPIRATORY DISTRESS.DYSPNEA COMPARISON: Chest 05/07/2017. FINDINGS: No pneumothorax. Trace right and small left pleural effusion. Slight progression of the diffuse reticulonodular interstitial thickening most pronounced at the lung bases. The heart is mildly enlarged. No pneumothorax. Bibasilar densities, unchanged. IMPRESSION: Slight progression of the diffuse reticulonodular interstitial thickening most pronounced at the lung bases. This suggests an infectious bronchiolitis. There is now a trace right and small left pleural effusion. Bibasilar densities, unchanged. Electronically signed by: Vance Henriquez M.D. 05/17/2017 5:40 PM Dictated Date/Time: 05/17/2017 5:36 PM
[2017-05-17 18:14] LABS: BASO % 0.6 %; BASO ABS # 0.11 K/uL (0-0.2); EOS % 0.8 %; EOS ABS # 0.14 K/uL (0-0.5); HEMATOCRIT 36.3 % (42-52); HEMOGLOBIN 11.7 g/dL (14.0-18.0); IG# 0.05 K/uL (0.00-0.02); LYMPH % 8.5 %; LYMPH ABS # 1.48 K/uL (1.2-3.4); MEAN CELL VOLUME 104.9 fL (80-100); MEAN CORPUSCULAR HEMOGLOBIN 33.8 pg (25-34); MEAN CORPUSCULAR HGB CONC 32.2 g/dl (32-36); MEAN PLATELET VOLUME 9.7 fL (7.4-10.4); MONO % 5.8 %; MONO ABS # 1.01 K/uL (0.11-0.59); NEUT ABS # 14.71 K/uL (1.4-6.5); PLATELET COUNT 258 K/uL (130-400); RED CELL DISTRIBUTION WIDTH CV 14.7 % (11.5-14.5); RED CELL DISTRIBUTION WIDTH SD 55.8 fL (36.4-46.3)
[2017-05-17 18:22] LABS: PTT PATIENT 28.9 SECONDS (21.0-31.0)
[2017-05-17 18:47] LABS: ALBUMIN 3.1 gm/dl (3.4-5.0); ALKALINE PHOSPHATASE 161 U/L (45-117); ALT/SGPT 28 U/L (12-78); AST/SGOT 21 U/L (15-37); BLOOD UREA NITROGEN 15 mg/dl (7-18); CALCIUM 8.5 mg/dl (8.5-10.1); CARBON DIOXIDE 27 mmol/L (21-32); CREATININE 4.77 mg/dl (0.60-1.40); GLUCOSE 236 mg/dl (70-99); POTASSIUM 3.7 mmol/L (3.5-5.1); SODIUM 135 mmol/L (136-145); TOTAL PROTEIN 7.8 gm/dl (6.4-8.2)
[2017-05-17] MEDS ORDERED: SODIUM CHLORIDE 0.9% IV STA ×2 (18:57→19:25)
[2017-05-17] MEDS ORDERED: VANCOMYCIN IV STA ×2 (18:57→19:25)
[2017-05-17] MEDS ORDERED: SODIUM CHLORIDE 0.9% 500ML 500 ML IV STA (18:57)
[2017-05-17] MEDS ORDERED: CEFEPIME IV 2,000 MG in DEXTROSE 5% 100ML 100 ML IV STA (18:57)
[2017-05-17] MEDS ORDERED: LEVAQUIN 750MG / 150ML D5W IV ONE (19:00)
[2017-05-17] MEDS ORDERED: VANCOMYCIN CONSULT ACTIVE PRN ×2 (19:00→20:15)
[2017-05-17] MEDS ORDERED: VANCOMYCIN IV 1,750 MG in SODIUM CHLORIDE 0.9% 500ML 500 ML IV ONE (19:45)
[2017-05-17] MEDS ORDERED: DEXAMETHASONE INJ 6 MG in SYRINGE 0 ML IV SCH (20:12)
[2017-05-17] MEDS ORDERED: VANCOMYCIN IV SCH (20:15)
[2017-05-17] MEDS ORDERED: GLUCAGON FOR INJ 1 MG VIAL SQ PRN (20:15)
[2017-05-17] MEDS ORDERED: ICU PROTOCOL FOR HYPERGLYCEMIA PRN (20:15)
[2017-05-17] MEDS ORDERED: SODIUM CHLORIDE 0.9% IV SCH (20:15)
[2017-05-17] MEDS ORDERED: ACETAMINOPHEN 325 MG TAB PO PRN (20:15)
[2017-05-17] MEDS ORDERED: DC ALL PREVIOUSLY ORDERED DIABETES MEDS ONE (20:15)
[2017-05-17] MEDS ORDERED: GLUCOSE 10 TABS/TUBE PO PRN (20:15)
--- NOTE | 2017-05-17 20:43 | Procedure Note ---
Procedure Note Date of Service May 17, 2017. Procedure Note Critical Care Medicine Point of Care Bedside Ultrasound Procedure: Limited Bedside Lung Ultrasound Procedure Date: May 17, 2017 Indication: severe sepsis Attending: Ector Gutierrez DO Resident/Physician Patient Access Coordinator: Donna Randhawa Organs Examined: Lung BLUE point (upper), BLUE point (lower), Phrenic Point (axillary), PLAPS point ( posterior) A lines visualized: absent, Hemithorax: Bilateral B lines visualized: Present, Hemithorax: Bilateral Lung Sliding: Present, Hemithorax: Bilateral Tissue-like Sign: Present, Hemithorax: Left Shred Sign: absent, Hemithorax: bilateral Quad Sign: absent, Hemithorax: bilateral Sinusoid Sign: absent, Hemithorax: bilateral Type of effusions: absent, Hemithorax: bilateral Interpleural distance: NA Impression: indications of interstitial edema and tissue like sign concerning for infiltrative process and possible volume overload Plan: limit crystalloid administration and start vasoactive medications Images obtained are saved for permanent record
[2017-05-17] MEDS ORDERED: DEXAMETHASONE **PF** INJ 10 MG/ML VIAL ONE (20:44)
[2017-05-17] MEDS ORDERED: PHARMACY GLYCEMIC MGMT CONSULT PRN (20:52)
[2017-05-17] MEDS ORDERED: INSULIN ASPART 100 UNITS/ML 3 ML PEN SC SCH (21:00)
--- NOTE | 2017-05-17 21:00 | History and Physical ---
History & Physical Date & Time of Service: May 17, 2017 at 20:38 Chief Complaint: SOB Primary Care Physician: No Doctor, Assigned History of Present Illness Source: patient, family, hospital records 51 years old man with past medical history of insulin-dependent diabetes mellitus with neuropathy and peripheral vascular disease status post left foot metatarsal amputation, hypertension, diastolic congestive heart failure, hypothyroidism, mood disorder and dyslipidemia. Patient was recently discharged from the hospital 10 days ago after being treated for H CAP, he received Zyvox and meropenem 5 days when he was in the hospital and was discharged on doxycycline and tapering dose of prednisone. Patient has a baseline chronic respiratory failure as per patient he uses 3-4 L of oxygen at home. Since his discharge from the hospital 10 days ago he has not been feeling well. Required more oxygen without specification of the mouth. Very lethargic and shortness of breath. He goes to dialysis every Tuesday and Tuesday. He had dialysis today and after dialysis he went home and felt extremely tired and fatigued with labored breathing. He was brought to the ED and was found to have hypotension and significant scattered rhonchi. Chest x-ray showed increased cephalization but the penetration was very strong. Patient received 500 cc IV normal saline followed by another bolus of 500 cc in ED which led to slight improvement in his blood pressure. On arrival it was 60/40, now it is 90/50. Denies any diarrhea or blood in the stool, he makes very small amount of urine denies any new urinary symptoms. Denies any chest pain but admits to worsening shortness of breath. Recently finished his tapering dose of prednisone. Last admission he had a CT angiogram on April 30 that showed no pulmonary embolism, illustrated the bilateral significant pulmonary infiltrate Last echo was done April 30 and showed ejection fraction of 60%, grade 1 diastolic dysfunction Last admission patient had a bronchoscopy cultures grew Haemophilus influenza beta-lactamase negative and yeast penicillium species Family History FH: heart disease Social History Smoking Status: Former Smoker Drug Use: none Marital Status: Housing status: lives with family Occupational Status: disabled Immunizations History of Influenza Vaccine: Yes Influenza Vaccine Date: Dec 19, 2014 History of Tetanus Vaccine?: Yes Tetanus Immunization Date: Apr 02, 2013 History of Pneumococcal: 2008 and 2013 Pneumococcal Date: Mar 21, 2008 History of Hepatitis B Vaccine: Unknown Hepatitis Immunization Date: Feb 15, 2007 Multi-Drug Resistant Organisms History of MDRO: No Allergies Coded Allergies: Codeine (Verified Allergy, Intermediate, NAUSEA AND VOMITING, 05/07/17) QUESTIONABLE ALLERGY, STILL QUESTIONABLE BUT MD Villafuerte/David SHONDA WITH COD 02/20/17 Tigecycline (Verified Allergy, Mild, ?RASH, 05/07/17) Clindamycin (Verified Allergy, Unknown, Unknown, 05/07/17) Penicillins (Verified Allergy, Unknown, PT HAS HAD MEFOXIN W/OUT A PROBLEM , 05/07/17) HAD MEFOXIN W/O PROBLEM Ciprofloxacin (Verified Adverse Reaction, Intermediate, nausea,vomiting, generalized weakness, 05/07/17) Morphine (Verified Adverse Reaction, Intermediate, TREMBLING,NAUSEA AND VOMITING, 05/07/17) Opioid Analgesics (Verified Adverse Reaction, Intermediate, "ALL RX PAIN MEDS CAUSE SEVERE NAUSEA", 05/07/17) Levofloxacin (Verified Adverse Reaction, Mild, Cipro/Levaquin (IV & po) = N & V, 05/07/17) Oxycodone (Verified Adverse Reaction, Unknown, N/V/D, 05/07/17) SPOKE WITH PATIENT ON 07/29/15, DOES NOT REMEMBER ANY DIFFICULTY BREATHING JUST HIT HIM HARD. Home Medications Scheduled Amlodipine Besylate (Norvasc), 2.5 MG PO 4XWK Atorvastatin (Lipitor), 40 MG PO HS Bupropion Hcl (Wellbutrin Sr), 200 MG PO QPM Cinacalcet (Sensipar), 30 MG PO DAILY Clopidogrel Bisulfate (Clopidogrel), 75 MG PO Q2D Fluticasone Furoate-Vilanterol (Breo Ellipta 200-25 Mcg/INH), 1 PUFF INH DAILY Furosemide (Furosemide), 80 MG PO BID Gabapentin (Gabapentin), 100 MG PO BID Insulin Aspart (novoLOG INSULIN PUMP ), 1 EA N/A UD Levothyroxine Sodium (Levothyroxine Sodium), 112 MCG PO DAILY Metoprolol Tartrate (Lopressor) (Lopressor), 50 MG PO BID Prednisone (Prednisone), 10 MG PO DIRECTED Sevelamer Carbonate (Renvela), 1,600 MG PO TID Umeclidinium [place] (Incruse Ellipta), 1 PUFF INH DAILY Scheduled PRN Ipratropium-Albuterol (Duoneb), 3 ML INH QID PRN for SOB/Wheezing Review of Systems Review of system Constitutional: No fever / no chills / no sweats /significant generalized weakness and fatigue Eyes: no blurring of vision / no eye pain / no discharge / no redness ENT: no hearing loss / no epistaxis /no swallowing problems Respiratory: Significant shortness of breath, decreased air entry bilaterally, positive wheezing, positive for cough Cardiovascular: no Chest pain / no lower extremity edema / no palpitation Abdomen: no pain / no nausea / no vomiting / no constipation Musculoskeletal: no joint pain / no muscle pain / no joint swelling Genitourinary: no dysuria / no incontinence / no urinary retention Neurologic: no focal weakness / no numbness/tingling / no ataxia Psychiatric: no depression symptoms / no anxiety / no insomnia Endocrine: no excessive thirst / no excessive urination Hematologic: no abnormal bleeding / no bruising / no LN swelling Skin: No rash / no pallor Physical Exam Vital Signs Date Time Temp Pulse Resp B/P (MAP) Pulse Ox O2 Delivery O2 Flow Rate FiO2 05/17/17 19:52 89 22 93/57 100 Nasal Cannula 4.0 05/17/17 19:44 91 22 86/57 99 Nasal Cannula 4.0 05/17/17 19:34 36.8 05/17/17 19:27 87 22 80/51 97 Nasal Cannula 4.0 05/17/17 19:11 88 21 91 Nasal Cannula 4.0 05/17/17 19:01 69/41 05/17/17 19:00 70/47 05/17/17 18:58 69/43 05/17/17 18:57 67/44 05/17/17 18:49 76/52 05/17/17 18:41 92 20 91 05/17/17 18:39 88 20 76/52 92 Nasal Cannula 4.0 05/17/17 18:11 111 26 05/17/17 17:41 111 32 05/17/17 17:36 113 20 100 05/17/17 17:35 110 24 99 Nasal Cannula 3.0 05/17/17 17:01 159/99 05/17/17 16:56 103 20 97 05/17/17 16:53 97 Nasal Cannula 4.0 05/17/17 16:51 104 23 97 05/17/17 16:40 174/94 05/17/17 16:30 103 05/17/17 16:26 169/104 05/17/17 16:21 98 Room Air 05/17/17 16:21 98 Nasal Cannula 4.0 05/17/17 16:21 36.6 101 18 169/104 98 Nasal Cannula 4.0 Physical examination General patient appears to be in moderate acute distress HEENT: Atraumatic , normocephalic /no jaundice /no pallor /anicteric /no dry mucous membrane /normal external ear inspection Neck: Supple /no swelling /central trach Heart: S1/S2 normal/regular rate and rhythm/no gallop /no rub /no murmur Lungs: Decreased air entry bilaterally, significant scattered rhonchi, bilateral basal rales, using accessory muscles of respiration Abdomen: Soft/nontender/no guarding/no rebound/no organomegaly/no pulsatile mass Musculoskeletal: No swelling/no edema/no tenderness/normal range of motion Neuro exam: Awake alert oriented 3/cranial nerves II through XII appear to be intact/sensation intact/moves all extremities/no abnormal movements Psychiatric evaluation: No depressed mood/normal affect Skin: No rash on exposed skin area/no erythema Extremity: Normal pulse/no pitting edema/no clubbing or cyanosis Endocrine/lymphatic: No obvious lymphadenopathy /no lymphedema Diagnostics Laboratory Results Results Past 24 Hours Test 05/17/17 17:41 05/17/17 18:43 05/17/17 19:57 05/17/17 20:12 Range/Units White Blood Count 17.50 4.8-10.8 K/uL Red Blood Count 3.46 4.7-6.1 M/uL Hemoglobin 11.7 14.0-18.0 g/dL Hematocrit 36.3 42-52 % Mean Corpuscular Volume 104.9 80-100 fL Mean Corpuscular Hemoglobin 33.8 25-34 pg Mean Corpuscular Hemoglobin Concent 32.2 32-36 g/dl Platelet Count 258 130-400 K/uL Mean Platelet Volume 9.7 7.4-10.4 fL Neutrophils (%) (Auto) 84.0 % Lymphocytes (%) (Auto) 8.5 % Monocytes (%) (Auto) 5.8 % Eosinophils (%) (Auto) 0.8 % Basophils (%) (Auto) 0.6 % Neutrophils # (Auto) 14.71 1.4-6.5 K/uL Lymphocytes # (Auto) 1.48 1.2-3.4 K/uL Monocytes # (Auto) 1.01 0.11-0.59 K/uL Eosinophils # (Auto) 0.14 0-0.5 K/uL Basophils # (Auto) 0.11 0-0.2 K/uL RDW Standard Deviation 55.8 36.4-46.3 fL RDW Coefficient of Variation 14.7 11.5-14.5 % Immature Granulocyte % (Auto) 0.3 % Immature Granulocyte # (Auto) 0.05 0.00-0.02 K/uL Prothrombin Time 10.3 9.0-12.0 SECONDS Prothromb Time International Ratio 1.0 0.9-1.1 Activated Partial Thromboplast Time 28.9 21.0-31.0 SECONDS Partial Thromboplastin Ratio 1.1 Sodium Level 135 136-145 mmol/L Potassium Level 3.7 3.5-5.1 mmol/L Chloride Level 94 98-107 mmol/L Carbon Dioxide Level 27 21-32 mmol/L Anion Gap 14.0 3-11 mmol/L Blood Urea Nitrogen 15 7-18 mg/dl Creatinine 4.77 0.60-1.40 mg/dl Est Creatinine Clear Calc Drug Dose 20.9 ml/min Estimated GFR () 15.2 Estimated GFR (Non- 13.1 BUN/Creatinine Ratio 3.1 10-20 Random Glucose 236 70-99 mg/dl Calcium Level 8.5 8.5-10.1 mg/dl Total Bilirubin 1.0 0.2-1 mg/dl Aspartate Amino Transf (AST/SGOT) 21 15-37 U/L Alanine Aminotransferase (ALT/SGPT) 28 12-78 U/L Alkaline Phosphatase 161 45-117 U/L Troponin I 0.043 0-0.045 ng/ml Pro-B-Type Natriuretic Peptide > 89365 0-900 pg/ml Total Protein 7.8 6.4-8.2 gm/dl Albumin 3.1 3.4-5.0 gm/dl Globulin 4.7 2.5-4.0 gm/dl Albumin/Globulin Ratio 0.7 0.9-2 Bedside Glucose 273 70-99 mg/dl Venous Blood pH 7.27 7.36-7.41 Venous Blood Partial Pressure CO2 42 38.0-50.0 mmHg Venous Blood Partial Pressure O2 30 mmHg Venous Blood HCO3 19 mmol/L Venous Blood Oxygen Saturation < 60.0 % Venous Blood Base Excess -7.5 mEq/L Lactic Acid Level 2.7 0.4-2.0 mmol/L Ammonia 20.3 11-32 umol/L Impression Assessment and Plan 51 years old man with past medical history of insulin-dependent diabetes mellitus with neuropathy and peripheral vascular disease status post left foot metatarsal amputation, hypertension, diastolic congestive heart failure, hypothyroidism, mood disorder and dyslipidemia. Patient was recently discharged from the hospital 10 days ago after being treated for H CAP, he received Zyvox and meropenem 5 days when he was in the hospital and was discharged on doxycycline and tapering dose of prednisone. Presented to the ED with septic shock and shortness of breath Assessment Acute on chronic hypoxic respiratory failure secondary to below Healthcare associated pneumonia Septic shock secondary to above Acute on chronic diastolic congestive heart failure Possible relative adrenal insufficiency End-stage renal disease on hemodialysis every Tuesday, last dialyzed yesterday Insulin-dependent diabetes mellitus Hypertension, currently hypotensive dyslipidemia Peripheral vascular disease Hypothyroidism Peripheral neuropathy Mood disorder Plan Admit patient to ICU already received 1 L of fluids, will hold IV fluids since he is becoming fluid overloaded Oxygen supplement as per protocol Blood culture/sputum culture/urine cultures(he does make small amount of urine) Influenza virus screen and PCR, empiric Tamiflu Urine legionella antigen Initiate broad-spectrum antibiotics covering typical and atypical microorganisms , including cefepime/Vanco/levofloxacin Check lactic acid and pro calcitonin Stress there is steroid with dexamethasone until cortisol level is taking then can switch to hydrocortisone Start patient on lactobacillus to prevent C. difficile Continue home medications IV fluid hydration as needed Monitor labs in a.m. Bronchodilators Monitor oxygen saturation DVT prophylaxis/heparin subcutaneous Last admission he had a CT angiogram on April 30 that showed no pulmonary embolism, illustrated the bilateral significant pulmonary infiltrate Last echo was done April 30 and showed ejection fraction of 60%, grade 1 diastolic dysfunction Last admission patient had a bronchoscopy cultures grew Haemophilus influenza beta-lactamase negative and yeast penicillium species Patient is full code based on my discussion with him and his father Resuscitation Status FULL RESUSCITATION VTE Prophylaxis VTE Risk Assessment Done? Y/N: Yes Risk Level: Moderate Given or contraindicated: Unfractionated heparin SQ
--- NOTE | 2017-05-17 21:17 | Procedure Note ---
Procedure Note Procedure Date May 17, 2017. Central Line Procedure time out: side/site verified, patient ID confirmed, sterile procedure used Consent obtained: written Time of procedure: 21:00 Performed by: attending Indications: poor venous access, central drug admin. Contraindications: h/o venous thrombosis Prep: chlorhexadine prep, sterile drape, sterile procedures used Anesthesia: lidocaine 1% without epi Volume anesthetic (ml's): 4 Central line lumen: triple Central line location: internal jugular (R) Additional details: ultrasound guidance, Selinger technique used, line sutured , good blood return Complications: none Patient tolerated procedure: well Post-procedure vital signs: reviewed and stable Comments: Critical Care Medicine Point of Care Bedside Ultrasound Procedure: Procedural Ultrasound Procedure Date: Indication: central venous access Artery AND Vein visualized: Y Compressible Vein: Y Guidewire or Short Catheter seen in vein prior to dilation: Y Line confirmed in Vein with ultrasound: Y Lung Sliding on side of attempt (if applicable): Y If no lung sliding or not obtained has CXR been ordered: ordered Impression: Successful R IJ CVL placement Images obtained are saved for permanent record
--- NOTE | 2017-05-17 21:28 | DIAGNOSTIC IMAGING REPORT ---
CHEST ONE VIEW PORTABLE CLINICAL HISTORY: cvl placement COMPARISON STUDY: Chest CT April 30, 2017 and chest radiograph May 17, 2017. FINDINGS: The tip of the right internal jugular central line projects over the mid SVC. There is no pneumothorax. Small left and trace right pleural effusions persist. Bibasilar opacities are unchanged. Interstitial thickening is unchanged. Increased sclerosis of visualized skeletal structures is again noted. This may be related to chronic renal failure. IMPRESSION: 1. No pneumothorax following placement of right internal jugular central line. 2. No change in small left and trace right pleural effusions. 3. Mild interstitial thickening which favors pulmonary edema although an infectious process could appear similar. Electronically signed by: Nav Rausch M.D. 05/17/2017 9:26 PM Dictated Date/Time: 05/17/2017 9:24 PM
[2017-05-17] MEDS: NOREPINEPHRINE BIT INJ 8 MG in DEXTROSE 5% 500ML 500 ML IV PRN (21:41)
[2017-05-17 22:13] LABS: INFLUENZA A PCR Neg for Influ A (NEG); INFLUENZA B PCR Neg for Influ B (NEG)
[2017-05-17 22:20] VITALS: BP 140/80; PULSE 110; TEMP 36.8; O2SAT 99; BMI 26.3
[2017-05-17] MEDS ORDERED: INSULIN IV INFUSION PROTOCOL STA (22:30)
[2017-05-17] MEDS ORDERED: NovoLIN R BOLUS FROM BAG IV ONE (22:45)
[2017-05-17] MEDS: INSULIN REGULAR 250 UNITS in SODIUM CHLORIDE 0.9% 250ML 250 ML IV SCH (22:54)
[2017-05-17 23:14] VITALS: BP 123/74; PULSE 113; O2SAT 98
[2017-05-17 23:25] VITALS: PULSE 114; O2SAT 96
[2017-05-17] MEDS: LEVALBUTEROL 1.25MG/0.5ML NEB INH SCH (23:25)
--- NOTE | 2017-05-17 23:25 | Critical Care Consultation ---
Critical Care Consultation Date of Consultation: May 17, 2017. Attending Physician: Taqueria Nieto MD Reason for Consultation: Severe Pneumonia History of Present Illness Gino Clark is a 51yo male with PMHxx of tracheomalacia, anemia, HTN, bipolar disorder, diabetes, CKD with ERSD on dialysis for 10 years, and hypothyroidism. Patient states that after being dialyzed this afternoon he arrived home and began to have increasing shortness of breath. Patient was released from the hospital for bacterial pneumonia approximately 10 days ago. 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 Patient does complain of exceptionally labored breathing, dry cough. He denies chest pain or increased leg swelling. Patient is chronically on 2 L oxygen at home and CPAP at night. In the emergency department patient was noted to be hypotensive and received (3 ) 500 mL fluid bolus per ED nursing report with some effect. SBP increased from 67/44 to 93/57. I arrived with Dr. Gutierrez and performed a bedside ultrasound which demonstrated some degree of fluid overload. Patient also underwent right internal jugular triple lumen catheterization and levophed was started. Patient has been extremely anxious and repeating that he cannot breathe and apologizes profusely. However, his oxygen saturations have remained above 96%. During the last admission patient did undergo CT angiogram to rule out pulmonary embolism which was negative. Patient also underwent cardiac echo which demonstrated an EF of 60% and grade 1 diastolic failure. Patient follows with Dr. Ojeda. Bronchoscopy cultures on last admission grew H. flu beta- lactamase negative and yeast penicillium species. Pt has experience fatigue and malaise. Leg swelling is common and currently at his baseline per pt. The patient denies weight loss, fever, dizziness, headache , numbness, change in vision, sore throat, chest pain, palpitations, awareness of tachyarrhythmias, shortness of breath, cough, nausea, vomiting, bloody stools , diarrhea, constipation, abdominal pain, other changes in urine or bowel habits. Past Medical/Surgical History Medical Problems: Achromobacter pneumonia Anemia Bipolar disorder Chronic kidney disease with end stage renal failure on dialysis Chronic obstructive lung disease Cough Syncope Diabetes mellitus type 1 Diabetic peripheral neuropathy associated with type 1 diabetes mellitus Gram-positive cocci bacteremia History of diabetic ulcer of foot Hyperparathyroidism due to renal insufficiency Hypertension Hypotension arterial Hypothyroidism infected hematoma R thigh Loss of sensation Pneumonia Pulmonary edema Septic shock Tracheomalacia venous stenosis AVF Weakness Surgical Hx: Bypass Grafting Appendectomy Multiple Lower Extremity digit amputation Fistula Formation Family History FH: heart disease Social History Smoking Status: Former Smoker Drug Use: none Marital Status: Housing Status: lives with family Occupation Status: disabled Allergies Coded Allergies: Codeine (Verified Allergy, Intermediate, NAUSEA AND VOMITING, 05/07/17) QUESTIONABLE ALLERGY, STILL QUESTIONABLE BUT D/David SHONDA WITH COD 02/20/17 Tigecycline (Verified Allergy, Mild, ?RASH, 05/07/17) Clindamycin (Verified Allergy, Unknown, Unknown, 05/07/17) Penicillins (Verified Allergy, Unknown, PT HAS HAD MEFOXIN W/OUT A PROBLEM , 05/07/17) HAD MEFOXIN W/O PROBLEM Ciprofloxacin (Verified Adverse Reaction, Intermediate, nausea,vomiting, generalized weakness, 05/07/17) Morphine (Verified Adverse Reaction, Intermediate, TREMBLING,NAUSEA AND VOMITING, 05/07/17) Opioid Analgesics (Verified Adverse Reaction, Intermediate, "ALL RX PAIN MEDS CAUSE SEVERE NAUSEA", 05/07/17) Levofloxacin (Verified Adverse Reaction, Mild, Cipro/Levaquin (IV & po) = N & V, 05/07/17) Oxycodone (Verified Adverse Reaction, Unknown, N/V/D, 05/07/17) SPOKE WITH PATIENT ON 07/29/15, DOES NOT REMEMBER ANY DIFFICULTY BREATHING JUST HIT HIM HARD. Home Medications Scheduled Amlodipine Besylate (Norvasc), 2.5 MG PO 4XWK Atorvastatin (Lipitor), 40 MG PO HS Bupropion Hcl (Wellbutrin Sr), 200 MG PO QPM Cinacalcet (Sensipar), 30 MG PO DAILY Clopidogrel Bisulfate (Clopidogrel), 75 MG PO Q2D Fluticasone Furoate-Vilanterol (Breo Ellipta 200-25 Mcg/INH), 1 PUFF INH DAILY Furosemide (Furosemide), 80 MG PO BID Gabapentin (Gabapentin), 100 MG PO BID Insulin Aspart (novoLOG INSULIN PUMP ), 1 EA N/A UD Levothyroxine Sodium (Levothyroxine Sodium), 112 MCG PO DAILY Metoprolol Tartrate (Lopressor) (Lopressor), 50 MG PO BID Prednisone (Prednisone), 10 MG PO DIRECTED Sevelamer Carbonate (Renvela), 1,600 MG PO TID Umeclidinium [place] (Incruse Ellipta), 1 PUFF INH DAILY Scheduled PRN Ipratropium-Albuterol (Duoneb), 3 ML INH QID PRN for SOB/Wheezing Current Inpatient Medications Current Inpatient Medications Medications (Trade) Dose Ordered Sig/Etta Route Start Time Stop Time Status Last Admin Dose Admin Miscellaneous Information (Consult) 1 ea UD PRN N/A 05/17/17 19:00 06/16/17 18:59 Atorvastatin Calcium (Lipitor Tab) 40 mg HS PO 05/17/17 21:00 06/16/17 20:59 Bupropion HCl (Wellbutrin-Sr Tab) 200 mg QPM PO 05/17/17 21:00 06/16/17 20:59 Clopidogrel Bisulfate (plAVix TAB) 75 mg Q2D@0900 PO 05/18/17 09:00 06/17/17 08:59 Gabapentin (Neurontin Cap) 100 mg BID PO 05/17/17 21:00 06/16/17 20:59 Albuterol/ Ipratropium (Duoneb) 3 ml QID PRN INH 05/17/17 20:15 06/16/17 20:14 Levothyroxine Sodium (Synthroid Tab) 112 mcg DAILYBB PO 05/18/17 06:00 06/17/17 05:59 Miscellaneous Information (Order Awaiting Action) 1 ea QS N/A 05/18/17 00:00 06/17/17 00:00 Sevelamer HCl (Renagel Tab) 1,600 mg TIDM PO 05/18/17 07:15 06/17/17 07:14 Lactobacillus Acidophilus (Floranex Tab) 4 tab TIDM PO 05/18/17 07:15 06/17/17 07:59 Heparin Sodium (Porcine) (Heparin Sq 5000 Unit/0.5ml) 5,000 unit Q12 SQ 05/17/17 23:00 06/16/17 22:59 Acetaminophen (Tylenol Tab) 650 mg Q4H PRN PO 05/17/17 20:15 06/16/17 20:14 Pantoprazole Sodium 40 mg/ Syringe 10 ml @ 5 mls/min DAILY IV 05/18/17 09:00 05/21/17 09:01 Levalbuterol (Xopenex 1.25MG/ 0.5ML Neb) 1.25 mg Q8R INH 05/18/17 00:00 06/17/17 00:00 Miscellaneous Information (Icu Protocol For Hyperglycemia) 1 ea PRN PRN N/A 05/17/17 20:15 05/19/17 20:14 Glucose (Glucose 40% Gel) 15-30 GRAMS 15 GRAMS... UD PRN PO 05/17/17 20:15 06/16/17 20:14 Glucose (Glucose Chew Tab) 4-8 Tablets 4 Tabl... UD PRN PO 05/17/17 20:15 06/16/17 20:14 Dextrose (Dextrose 50% 50ML Syringe) 25-50ML OF 50% DW IV FOR... UD PRN IV 05/17/17 20:15 06/16/17 20:14 Glucagon (Glucagon Inj) 1 mg UD PRN SQ 05/17/17 20:15 06/16/17 20:14 Miscellaneous Information (Consult Glycemic Management Pharmacy) 1 ea UD PRN N/A 05/17/17 20:52 06/16/17 20:51 Vancomycin HCl 1000 mg/Sodium Chloride 520 ml @ 200 mls/hr ONE IV 05/17/17 20:15 05/24/17 20:14 UNV Cefepime HCl 1000 mg/Syringe 13.75 ml @ 5 mls/min DAILY IV 05/18/17 09:00 05/25/17 08:59 UNV Levofloxacin 500 mg/Prmx 100 ml @ 100 mls/hr Q48H IV 05/19/17 20:00 05/24/17 19:59 Norepinephrine Bitartrate 8 mg/ Dextrose 508 ml @ 0 mls/hr Q0M PRN IV 05/17/17 20:31 06/16/17 20:30 05/17/17 21:41 34.5 MLS/HR Methylprednisolone Sodium Succinate 40 mg/Syringe 0.64 ml @ 1.5 mls/min Q6H IV 05/18/17 02:00 06/17/17 01:59 Insulin Human Regular 250 units/ Sodium Chloride 252.5 ml @ 0 mls/hr Q24H IV 05/17/17 22:45 06/16/17 22:44 05/17/17 22:54 3.4 MLS/HR Insulin Aspart (novoLOG ASPART) [facility] 05/18/17 08:00 06/17/17 07:59 Review of Systems 12 systems reviewed and negative other than previously mentioned in the HPI. Physical Exam Date Time Temp Pulse Resp B/P (MAP) Pulse Ox O2 Delivery O2 Flow Rate FiO2 05/17/17 22:20 36.8 110 26 140/80 99 Nasal Cannula 3.0 05/17/17 21:42 96 20 115/71 100 Oxymask 4.0 05/17/17 21:15 96 22 82/58 100 Oxymask 4.0 05/17/17 20:42 94 05/17/17 20:20 87 22 82/46 100 Nasal Cannula 4.0 05/17/17 19:52 89 22 93/57 100 Nasal Cannula 4.0 05/17/17 19:44 91 22 86/57 99 Nasal Cannula 4.0 05/17/17 19:34 36.8 05/17/17 19:27 87 22 80/51 97 Nasal Cannula 4.0 05/17/17 19:11 88 21 91 Nasal Cannula 4.0 05/17/17 19:01 69/41 05/17/17 19:00 70/47 05/17/17 18:58 69/43 05/17/17 18:57 67/44 05/17/17 18:49 76/52 05/17/17 18:41 92 20 91 05/17/17 18:39 88 20 76/52 92 Nasal Cannula 4.0 05/17/17 18:11 111 26 05/17/17 17:41 111 32 05/17/17 17:36 113 20 100 05/17/17 17:35 110 24 99 Nasal Cannula 3.0 05/17/17 17:01 159/99 05/17/17 16:56 103 20 97 05/17/17 16:53 97 Nasal Cannula 4.0 05/17/17 16:51 104 23 97 05/17/17 16:40 174/94 05/17/17 16:30 103 05/17/17 16:26 169/104 05/17/17 16:21 98 Room Air 05/17/17 16:21 98 Nasal Cannula 4.0 05/17/17 16:21 36.6 101 18 169/104 98 Nasal Cannula 4.0 Vital Signs - as noted Laboratory Data - as noted Physical Exam: General - Mild distress, anxious, repeating "I cant breath" Eyes - PERRL, EOMI No icterus, gaze conjugate ENT - Mucosa moist, no lesions or candidiasis Neck - Supple, trachea midline, no masses or lymphadenopathy, no JVD or bruits Lungs - No paradoxical chest wall movement, very coarse with rhonchi throughout , no wheezes or rales Heart - Reg rate and rhythm, No murmur, rubs, clicks, or gallops appreciated Abdomen - Absent BS, no bruits noted, tympanic to percussion, soft, nontender, nondistended, no organomegaly Extremities - Edema present, pedal pulses intact, multiple missing toes, skin warm but discolored bilaterally Neuro - A&O x 3 Strength extremities equal and appropriate bilaterally CN:PERRL, EOMI, no facial asymmetry, uvula/tongue midline Laboratory Results Last 24 Hours Test 05/17/17 17:41 05/17/17 18:43 05/17/17 19:57 05/17/17 21:22 White Blood Count 17.50 K/uL Red Blood Count 3.46 M/uL Hemoglobin 11.7 g/dL Hematocrit 36.3 % Mean Corpuscular Volume 104.9 fL Mean Corpuscular Hemoglobin 33.8 pg Mean Corpuscular Hemoglobin Concent 32.2 g/dl Platelet Count 258 K/uL Mean Platelet Volume 9.7 fL Neutrophils (%) (Auto) 84.0 % Lymphocytes (%) (Auto) 8.5 % Monocytes (%) (Auto) 5.8 % Eosinophils (%) (Auto) 0.8 % Basophils (%) (Auto) 0.6 % Neutrophils # (Auto) 14.71 K/uL Lymphocytes # (Auto) 1.48 K/uL Monocytes # (Auto) 1.01 K/uL Eosinophils # (Auto) 0.14 K/uL Basophils # (Auto) 0.11 K/uL RDW Standard Deviation 55.8 fL RDW Coefficient of Variation 14.7 % Immature Granulocyte % (Auto) 0.3 % Immature Granulocyte # (Auto) 0.05 K/uL Prothrombin Time 10.3 SECONDS Prothromb Time International Ratio 1.0 Activated Partial Thromboplast Time 28.9 SECONDS Partial Thromboplastin Ratio 1.1 Sodium Level 135 mmol/L Potassium Level 3.7 mmol/L Chloride Level 94 mmol/L Carbon Dioxide Level 27 mmol/L Anion Gap 14.0 mmol/L Blood Urea Nitrogen 15 mg/dl Creatinine 4.77 mg/dl Est Creatinine Clear Calc Drug Dose 20.9 ml/min Estimated GFR () 15.2 Estimated GFR (Non- 13.1 BUN/Creatinine Ratio 3.1 Random Glucose 236 mg/dl Calcium Level 8.5 mg/dl Total Bilirubin 1.0 mg/dl Aspartate Amino Transf (AST/SGOT) 21 U/L Alanine Aminotransferase (ALT/SGPT) 28 U/L Alkaline Phosphatase 161 U/L Troponin I 0.043 ng/ml Pro-B-Type Natriuretic Peptide > 31767 pg/ml Total Protein 7.8 gm/dl Albumin 3.1 gm/dl Globulin 4.7 gm/dl Albumin/Globulin Ratio 0.7 Procalcitonin 0.51 ng/ml Random Cortisol 20.67 mcg/dl Bedside Glucose 273 mg/dl Venous Blood pH 7.27 Venous Blood Partial Pressure CO2 42 mmHg Venous Blood Partial Pressure O2 30 mmHg Venous Blood HCO3 19 mmol/L Venous Blood Oxygen Saturation < 60.0 % Venous Blood Base Excess -7.5 mEq/L Lactic Acid Level 2.7 mmol/L Ammonia 20.3 umol/L Influenza Type A (RT-PCR) Neg for Influ A Influenza Type B (RT-PCR) Neg for Influ B Test 05/17/17 22:12 05/17/17 22:50 Bedside Glucose 335 mg/dl Blood Gas Sample Site R Radial Bedside Blood Gas pH (LAB) 7.38 Bedside Blood Gas pCO2 (LAB) 30 mmHg Bedside Blood Gas pO2 (LAB) 80 mmHg Bedside Blood Gas HCO3 (LAB) 18 meq/L Bedside Blood Gas Total CO2 19 mEq/l Bedside Blood Gas Base Excess (LAB) -7.0 meq/L Bedside Blood Gas O2 Saturation 96.0 % Carl Test Pass Oxygen Delivery Device Cannula Diagnostic Results CHEST ONE VIEW PORTABLE CLINICAL HISTORY: cvl placement COMPARISON STUDY: Chest CT April 30, 2017 and chest radiograph May 17, 2017. FINDINGS: The tip of the right internal jugular central line projects over the mid SVC. There is no pneumothorax. Small left and trace right pleural effusions persist. Bibasilar opacities are unchanged. Interstitial thickening is unchanged. Increased sclerosis of visualized skeletal structures is again noted. This may be related to chronic renal failure. IMPRESSION: 1. No pneumothorax following placement of right internal jugular central line. 2. No change in small left and trace right pleural effusions. 3. Mild interstitial thickening which favors pulmonary edema although an infectious process could appear similar. Electronically signed by: Nav Rausch M.D. 05/17/2017 9:26 PM Dictated Date/Time: 05/17/2017 9:24 PM CHEST 2 VIEWS ROUTINE HISTORY: EVALUATE RESPIRATORY DISTRESS.DYSPNEA COMPARISON: Chest 05/07/2017. FINDINGS: No pneumothorax. Trace right and small left pleural effusion. Slight progression of the diffuse reticulonodular interstitial thickening most pronounced at the lung bases. The heart is mildly enlarged. No pneumothorax. Bibasilar densities, unchanged. IMPRESSION: Slight progression of the diffuse reticulonodular interstitial thickening most pronounced at the lung bases. This suggests an infectious bronchiolitis. There is now a trace right and small left pleural effusion. Bibasilar densities, unchanged. Electronically signed by: Vance Henriquez M.D. 05/17/2017 5:40 PM Dictated Date/Time: 05/17/2017 5:36 PM Assessment & Plan (1) Shortness of breath (2) CHF (congestive heart failure) (3) Pneumonia (4) Chronic renal failure (5) Insulin dependent diabetes mellitus (6) ESRD (end stage renal disease) (7) Tracheomalacia (8) HCAP (healthcare-associated pneumonia) (9) Septic shock (10) Productive cough (11) Hypothyroidism (12) Bipolar disorder (13) Chronic obstructive lung disease Reason Critically Ill: Patient is an 51-year-old male who is transferred to the ICU for severe sepsis secondary to hypotension. PLAN: Resp: * Shortness of breath * Supplemental oxygen as required * Will try Hi-Flow O2 overnight as tolerated * Air hunger: Confirmed that morphine adverse reaction was nausea and vomiting ; pt willing to try. Respiratory much improved. * Severe PNA: HAP * Continue Cefepime, Vanco, and Levaquin at this time * Recent Hospitalization for PNA on Zyvox and Meropenem and d/c on Doxy * Monitor Troughs and QTc * Obtain Sputum for culture and gram stain * Urine Legionella pending * Bronchodilators in place * Continue home regimen * Consult Pulmonology group * Goal O2 Saturations >94% * Repeat CXR in AM Neuro: * Will continue Morphine for Air hunger as needed * Continue home medications: Gabapentin, Sensipar, and Wellbutrin * Monitor for neuro changes per protocol CV: * Septic Shock * Requiring Levophed for pressure support; GOAL MAP > 65 * Random Cortisol 20.67 * Troponin Neg * Last ECHO: EF 60% Grade 1 diastolic dysfunction * Fluid overload noted * Continue home medications including: * Norvasc, Lipitor, Lopressor * Monitor on telemetry Fluids/Renal: * ESRD on HD, HD today, Now fluid overloaded * Consult Renal for possible HD * BUN/Cr: 15/4.77 (Cr on discharge 05/07: 4.80) * Strict I&Os * Daily PRP * Minimize fluids; Concentrate where possible ID: * Severe PNA * Continue Abx: Cefepime, Vanco, and Levaquin (first day of tx: 05/17) * Septic Shock * Lactic Acid: 2.7, trend q8h * Procalcitonin: 0.51 Repeat q 72h * WBC elevated, trend * Afebrile GI/Nutrition: * LFTs: Alk Phos Elevated, Ammonia WNL * Chips and Sips while on Vasoactive medication * No indication for GI Prophylaxis currently Heme: * DVT prophylaxis in place: Pt refusing * Continue Pts Plavix * Daily CBC Endocrine: * DM1 with hyperglycemia * Pt entered hospital with insulin pump off * Insulin infusion started as glucose was 236-273 * Hypothyroidism * Continue Synthroid 112mcg CCT: 60 Minutes; This time is exclusive of all separately billable procedures. Thank you for involving us in the care of this patient. Please refer to Dr. Srikanth Gutierrez's addendum for further recommendations. I have personally evaluated and examined this patient. I agree with assessment and plan of Donna Randhawa PA-C. During my independent evaluation the patient was exhibiting signs of perseveration, did not appear to have clear insight into his disease process. There is mild increase in the reticular pattern in the patient's chest x-ray I am concerned for possible cryptogenic pneumonia versus interstitial pneumonia versus interstitial lung disease. Patient appears to be volume resuscitated at this time we will place a central line to administer vasoactive medications. I have personally spent 35 minutes of critical care time in the direct management of this patient. This is a life/limb threatening event. This includes time spent evaluating patient, direct bedside care, chart review, placing orders, interpretation of diagnostic studies, discussion with consultants, patient, and/or family members regarding treatment decisions, as well as other required patient management activities. This time is exclusive of all separately billable procedures, and teaching time and separate from and in addition to any other critical care service time.
[2017-05-17 23:31] VITALS: BP 130/80; PULSE 119; O2SAT 97
[2017-05-17 23:59] VITALS: TEMP 36.7; O2SAT 96
[2017-05-18] VITALS (29 sets, daily range): BP systolic 98–127; BP diastolic 57–79; PULSE 91–119; TEMP 36.7–37.2; O2SAT 90–98; BMI 26.4
[2017-05-18] MEDS ORDERED: MoRPHine SULFATE 2 MG/ML CARP IV STA
[2017-05-18] MEDS ORDERED: MoRPHine SULFATE 2 MG/ML CARP ONE (00:09)
[2017-05-18] MEDS: HEPARIN SOD 5000 UNIT/0.5 ML CARP SQ SCH ×2 (00:11→07:46)
[2017-05-18] MEDS: ATORVASTATIN 40 MG TAB PO SCH ×2 (00:11→21:09)
[2017-05-18] MEDS: BuPROPion SR 100 MG TABCR PO SCH ×2 (00:11→21:11)
[2017-05-18] MEDS: GABAPENTIN 100 MG CAP PO SCH ×3 (00:11→21:10)
[2017-05-18] MEDS: BREO ELLIPTA: ORDER AWAITING ACTION SCH ×3 (01:03→15:21)
[2017-05-18] MEDS: METHYLPREDNISOLONE IV 40 MG in SYRINGE 0 ML IV SCH ×3 (01:57→14:18)
[2017-05-18 05:06] LABS: ALBUMIN 2.7 gm/dl (3.4-5.0); ALKALINE PHOSPHATASE 134 U/L (45-117); ALT/SGPT 25 U/L (12-78); AST/SGOT 31 U/L (15-37); CALCIUM 8.5 mg/dl (8.5-10.1); CARBON DIOXIDE 25 mmol/L (21-32); GLUCOSE 251 mg/dl (70-99); PHOSPHORUS 3.1 mg/dl (2.5-4.9); POTASSIUM 3.5 mmol/L (3.5-5.1); SODIUM 135 mmol/L (136-145); TOTAL PROTEIN 6.9 gm/dl (6.4-8.2)
[2017-05-18 05:12] LABS: BASO % 0.2 %; BASO ABS # 0.03 K/uL (0-0.2); HEMATOCRIT 29.9 % (42-52); HEMOGLOBIN 9.8 g/dL (14.0-18.0); IG# 0.03 K/uL (0.00-0.02); LYMPH % 3.3 %; LYMPH ABS # 0.44 K/uL (1.2-3.4); MEAN CELL VOLUME 103.8 fL (80-100); MEAN CORPUSCULAR HGB CONC 32.8 g/dl (32-36); MEAN PLATELET VOLUME 9.8 fL (7.4-10.4); MONO % 1.7 %; MONO ABS # 0.23 K/uL (0.11-0.59); NEUT % 94.6 %; NEUT ABS # 12.42 K/uL (1.4-6.5); PLATELET COUNT 245 K/uL (130-400); RED CELL DISTRIBUTION WIDTH CV 14.6 % (11.5-14.5); RED CELL DISTRIBUTION WIDTH SD 54.9 fL (36.4-46.3); WHITE BLOOD COUNT 13.15 K/uL (4.8-10.8)
[2017-05-18 05:31] LABS: BLOOD UREA NITROGEN 27 mg/dl (7-18)
[2017-05-18] MEDS: LACTOBACILLUS ACIDOPHILUS (FLORANEX) TAB PO SCH ×3 (06:37→15:56)
[2017-05-18] MEDS: LEVOTHYROXINE 112 MCG TAB PO SCH (06:37)
[2017-05-18 07:04] LABS: HEMOGLOBIN A1C 6.6 % (4.5-5.6)
--- NOTE | 2017-05-18 07:17 | DIAGNOSTIC IMAGING REPORT ---
CHEST ONE VIEW PORTABLE HISTORY: 51 years-old Male Severe PNA follow-up study in a patient with pneumonia COMPARISON: Chest radiograph 05/17/2017 TECHNIQUE: Portable AP view of the chest FINDINGS: Cardiac silhouette is mildly enlarged, unchanged. Right internal jugular central venous catheter is unchanged terminating within the region of the SVC. No pneumothorax. Trace right and small left pleural effusions with persistent patchy left basilar consolidation. There is improved aeration of the bilateral lungs with decreased interstitial coarsening No overt pulmonary edema. Bones of the chest appear grossly intact. Dextroscoliosis of the lower thoracic spine. IMPRESSION: 1. Trace right and small left pleural effusions with persistent patchy left basilar airspace consolidation. 2. Improved aeration of the bilateral lungs with decreased interstitial coarsening. The above report was generated using voice recognition software. It may contain grammatical, syntax or spelling errors. Electronically signed by: Uriah Marina M.D. 05/18/2017 7:15 AM Dictated Date/Time: 05/18/2017 6:59 AM
[2017-05-18] MEDS: LEVALBUTEROL 1.25MG/0.5ML NEB INH SCH ×3 (07:27→23:28)
[2017-05-18] MEDS: CLOPIDOGREL BISULFATE 75 MG TAB PO SCH (07:43)
[2017-05-18] MEDS: SEVELAMER HYDROCH 800 MG TAB PO SCH ×3 (07:43→15:56)
[2017-05-18] MEDS ORDERED: INSULIN ASPART 100 UNITS/ML 3 ML PEN SC SCH (08:00)
[2017-05-18] MEDS: INSULIN ASPART 100 UNITS/ML 3 ML PEN SC SCH ×4 (08:18→21:00)
[2017-05-18] MEDS ORDERED: PANTOprazole INJ 40 MG in SYRINGE 0 ML IV SCH (09:00)
[2017-05-18] MEDS: DEXTROSE 50% 50 ML SYR IV PRN (10:42)
--- NOTE | 2017-05-18 11:20 | Progress Note ---
Progress Note Date of Service May 18, 2017. Progress Note ID Consult Dictated #[id number] A/P: 1. Leukocytosis 2. Resp Distress -continue abx, suggest sputum, blood cultures -pulm eval pending, unclear significance of yeast in broch from 04/18, not + until 05/16, may need repeat -thank you
--- NOTE | 2017-05-18 11:30 | INFECT. DISEASE CONSULTATION ---
DATE OF CONSULTATION: 05/18/2017 HISTORY OF PRESENT ILLNESS: This is a 51-year-old gentleman who was recently discharged from the hospital after he was found to be acidotic and had a questionable pneumonia. He did complete a course of antibiotics as well as a prednisone taper with resolution of his symptoms and was subsequently discharged to home. His last positive sputum cultures were from an outpatient bronchoscopy that was performed on April 18. At that time, he grew H influenza and was treated for this on the 16 of May. His fungal culture now is showing rare penicillium species. This was not evident during his most recent hospitalization. He currently is on Levaquin, cefepime, vancomycin, Solu-Medrol, and norepinephrine. He states his breathing is significantly improved since admission. He is currently on high flow nasal oxygen. He has been afebrile since admission. His white blood cell count was 17 yesterday, it has improved to 13 today. His procalcitonin is negative. He was found to have a gap acidosis and elevated lactate and elevated troponins in the range of 5. He is due for dialysis tomorrow. No micro has been ordered this admission. A pulmonary evaluation is pending. He currently denies any cough or chest pain. He denies any fevers or chills. He denies any abdominal pain, nausea, vomiting or diarrhea. His remaining review of systems is unremarkable. FAMILY HISTORY: Noncontributory. PAST MEDICAL HISTORY: Significant for insulin-dependent diabetes with subsequent neuropathy, left foot amputation, hypertension, congestive heart failure, hypothyroidism, dyslipidemia, mood disorder and valve replacement. SOCIAL HISTORY: Significant for history of tobacco use. He denies any alcohol or drug use. He lives with his family. He denies any recent sick contacts. ALLERGIES: HE HAS MULTIPLE ALLERGIES INCLUDING CODEINE, TETRACYCLINE, CLINDAMYCIN, PENICILLIN, CIPRO, MORPHINE, OPIATES AND OXYCODONE. CURRENT MEDICATIONS: Include Levaquin, Plavix, Protonix, cefepime, insulin, Renagel, Floranex, Synthroid, Solu-Medrol, Xopenex, subQ heparin, Lipitor, Wellbutrin, Neurontin, norepinephrine, DuoNebs, and Tylenol. He has also received vancomycin and cefepime. PHYSICAL EXAMINATION: VITAL SIGNS: He is afebrile, pulse 100, respiratory rate is in the 20s. Blood pressure is 113/64, oxygen saturation is 94% on high-flow oxygen. GENERAL: He is awake, alert and oriented x3 on my examination. His mental status is much improved from his last admission. HEENT: Mucous membranes are moist. HEART: Regular. Murmur is present. LUNGS: Clear bilaterally. ABDOMEN: Soft and nondistended. EXTREMITIES: There is no lower extremity edema. Surgical changes are noted. LABORATORY STUDIES: CBC today reveals a white blood cell count of 13.1, hemoglobin 9.8, platelets are 245. Chemistry panel reveals a sodium of 135, potassium 3.5, chloride 96, bicarbonate 25, BUN 27, creatinine 6.3, glucose is 251. Lactic acid this morning is 5.7. Troponin is 5.8. LFTs are within normal limits. Flu swab was negative. MRSA swab was negative. IMAGING DATA: A chest x-ray this morning shows trace effusions. ASSESSMENT AND PLAN: Leukocytosis. There is concern for infection. Blood cultures, urine cultures and sputum culture should be obtained; however, the patient has been on broad spectrum antibiotics. I do not know the significance of rare penicillium on bronchoscopy from over a month ago as he has not had any worsening radiographic findings. If this is of concern, I would suggest repeat bronchoscopy, pulmonary evaluation is pending. Thank you for this consultation.
[2017-05-18 13:29] LABS: CKMB 39.5 ng/ml (0.5-3.6)
--- NOTE | 2017-05-18 14:51 | PULMONARY CONSULTATION ---
DATE OF CONSULTATION: 05/18/2017 TIME: 1:10 p.m. HISTORY OF PRESENT ILLNESS: The patient was seen in the ICU room 108. He is a 51-year-old male who is usually cared for through Dr. Ojeda. He has a history of severe bronchiectasis. He has had multiple nodules in the upper lung infante. He has a history of tracheobronchomalacia, which is actually EDAC. The patient was admitted on 05/17/2017 with complaints of progressive shortness of breath. The patient has been hospitalized recently from April 29 through May 06 with possible pneumonia. He had had bronchoscopy done on 04/18/[address] Ojeda. This cultured out Haemophilus influenza, which was beta lactamase negative and they grew a small amount of fungus. He has had bronchoscopy previously in 2014 and 2015. The patient has been under a lot of stress. His very recently, approximately a week ago. This apparently was unexpected. He has been feeling weak. He was requiring more oxygen at home. He usually wears oxygen by nasal cannula at 4 liters. The patient goes to dialysis Tuesday, , Tuesday. He had dialysis yesterday and was brought to the ER following dialysis with labored breathing and fatigue. He was hypotensive with a blood pressure of 60/40. That has improved. At present, the patient feels much better. He is less short of breath. He is on high flow nasal oxygen at 40%. He is coughing some. He states he is not bringing up phlegm. He is not having chills, fevers or sweats. PAST SURGICAL HISTORY: 1. The patient has had multiple vascular surgeries to his legs and for dialysis access. 2. Appendectomy. 3. Multiple bronchoscopies. PAST MEDICAL HISTORY: 1. Hypertension. 2. Diabetes. 3. Chronic kidney disease. 4. Bipolar disorder. 5. Hypothyroidism. 6. Tracheomalacia as noted. 7. Relapsing polychondritis. 8. Anemia. 9. COPD. 10. Foot ulceration. 11. Prior pulmonary embolism. 12. Peripheral arterial disease. 13. Prior lung infections with pseudomonas and achromobacter. SOCIAL HISTORY: The patient is a former smoker. He quit in 2013. OCCUPATIONAL HISTORY: The patient is disabled. FAMILY HISTORY: Positive for heart disease. ALLERGIES: 1. CODEINE CAUSES NAUSEA AND VOMITING. 2. TIGECYCLINE POSSIBLE RASH. 3. CLINDAMYCIN UNCERTAIN SIDE EFFECT. 4. PENICILLINS. 5. CIPROFLOXACIN. 6. MORPHINE. 7. LEVOFLOXACIN. 8. OXYCODONE. REVIEW OF SYSTEMS: The patient has been generally weak. His appetite has been decreased. Energy level is low. He has not been sleeping as well. The patient wears CPAP. He has had some difficulty wearing it recently. He states he has had frequent air leaks from his mask. He gets his equipment through [employer]. He has had more trouble sleeping since his passed on. The remainder of the review of systems is negative. PHYSICAL EXAMINATION: GENERAL: The patient is a 51-year-old male who was cooperative and alert. He was not short of breath. VITAL SIGNS: Temperature 36.8. HEENT: Eye exam suggested prior cataract surgeries bilaterally. He has the high flow nasal in place. Mouth exam shows a fairly large tongue. Pharynx was at least a Mallampati grade 2. NECK: Palpation of the neck reveals no lymph nodes. HEART: Heart rate was 100 per minute. The rhythm was regular. Blood pressure 125/68. LUNGS: Lung infante revealed scattered rales and rhonchi bilaterally. The respiratory rate was 22 breaths per minute. Saturation is 94% on the high-flow oxygen. ABDOMEN: Soft. Bowel sounds were present. A bruit can be heard throughout the abdomen. No masses were palpable. EXTREMITIES: The lower leg shows evidence of severe peripheral vascular disease with multiple scars from prior surgeries. He has had a total of 6 toes amputated. LABORATORY AND DIAGNOSTIC DATA: The patient's chest x-ray shows trace effusions. There is still some residual basilar infiltrate on the left side. There are increased reticular nodular changes in both lungs. This is not new. His CAT scan from 04/30/2017 showed bilateral upper lobe nodules and ground-glass changes with bibasilar infiltrates and atelectasis. He is known to have bronchiectasis in this area from a prior CAT scan. EKG showed sinus rhythm. There were T-wave inversions in III and AVF. IMPRESSIONS: 1. Acute respiratory failure with hypoxia. 2. Chronic lung infiltrates with known bronchiectasis. 3. Multiple lung nodules. 4. Excessive dynamic airway collapse (EDAC). 5. Obstructive sleep apnea, on nasal CPAP at 13 cm. COMMENTS AND RECOMMENDATIONS: The patient overall is feeling much better. Infectious disease is following the case. He is on levofloxacin, cefepime, methylprednisolone, Xopenex by nebulizer and his other usual medicines. I agree with the above. I believe the patient should be on his CPAP at night if he can tolerate it. I will order that. I did review the infectious disease note. The question was raised as to possible bronchoscopy again. I do not think it is necessary right now. I will discuss the case with Dr. Ojeda, who knows this patient well. Thank you for asking me to assist in his care.
--- NOTE | 2017-05-18 15:18 | Pharmacy Progress Note ---
Pharmacy Antibiotic Consult Date of Service: May 18, 2017. Pharmacy Dosing Scope Pharmacy is consulted to initiate vancomycin IV dosing therapy, order appropriate labs and adjust drug dose/frequency. Subjective The patient is a 51 year old male admitted on May 17, 2017 at 20:31. Objective Height (Feet): 5 Height (Inches): 10.00 Weight (Kilograms): 83.300 Lab Results (24hrs): Test 05/17/17 17:41 05/17/17 19:57 05/17/17 21:22 05/17/17 22:50 White Blood Count 17.50 K/uL (4.8-10.8) Red Blood Count 3.46 M/uL (4.7-6.1) Hemoglobin 11.7 g/dL (14.0-18.0) Hematocrit 36.3 % (42-52) Mean Corpuscular Volume 104.9 fL (80-100) Mean Corpuscular Hemoglobin 33.8 pg (25-34) Mean Corpuscular Hemoglobin Concent 32.2 g/dl (32-36) Platelet Count 258 K/uL (130-400) Mean Platelet Volume 9.7 fL (7.4-10.4) Neutrophils (%) (Auto) 84.0 % Lymphocytes (%) (Auto) 8.5 % Monocytes (%) (Auto) 5.8 % Eosinophils (%) (Auto) 0.8 % Basophils (%) (Auto) 0.6 % Neutrophils # (Auto) 14.71 K/uL (1.4-6.5) Lymphocytes # (Auto) 1.48 K/uL (1.2-3.4) Monocytes # (Auto) 1.01 K/uL (0.11-0.59) Eosinophils # (Auto) 0.14 K/uL (0-0.5) Basophils # (Auto) 0.11 K/uL (0-0.2) RDW Standard Deviation 55.8 fL (36.4-46.3) RDW Coefficient of Variation 14.7 % (11.5-14.5) Immature Granulocyte % (Auto) 0.3 % Immature Granulocyte # (Auto) 0.05 K/uL (0.00-0.02) Prothrombin Time 10.3 SECONDS (9.0-12.0) Prothromb Time International Ratio 1.0 (0.9-1.1) Activated Partial Thromboplast Time 28.9 SECONDS (21.0-31.0) Partial Thromboplastin Ratio 1.1 Sodium Level 135 mmol/L (136-145) Potassium Level 3.7 mmol/L (3.5-5.1) Chloride Level 94 mmol/L (98-107) Carbon Dioxide Level 27 mmol/L (21-32) Anion Gap 14.0 mmol/L (3-11) Blood Urea Nitrogen 15 mg/dl (7-18) Creatinine 4.77 mg/dl (0.60-1.40) Est Creatinine Clear Calc Drug Dose 20.9 ml/min Estimated GFR () 15.2 Estimated GFR (Non- 13.1 BUN/Creatinine Ratio 3.1 (10-20) Random Glucose 236 mg/dl (70-99) Calcium Level 8.5 mg/dl (8.5-10.1) Total Bilirubin 1.0 mg/dl (0.2-1) Aspartate Amino Transf (AST/SGOT) 21 U/L (15-37) Alanine Aminotransferase (ALT/SGPT) 28 U/L (12-78) Alkaline Phosphatase 161 U/L (45-117) Pro-B-Type Natriuretic Peptide > 47274 pg/ml (0-900) Total Protein 7.8 gm/dl (6.4-8.2) Albumin 3.1 gm/dl (3.4-5.0) Globulin 4.7 gm/dl (2.5-4.0) Albumin/Globulin Ratio 0.7 (0.9-2) Procalcitonin 0.51 ng/ml (0-0.5) Random Cortisol 20.67 mcg/dl Venous Blood pH 7.27 (7.36-7.41) Venous Blood Partial Pressure CO2 42 mmHg (38.0-50.0) Venous Blood Partial Pressure O2 30 mmHg Venous Blood HCO3 19 mmol/L Venous Blood Oxygen Saturation < 60.0 % Venous Blood Base Excess -7.5 mEq/L Ammonia 20.3 umol/L (11-32) Influenza Type A (RT-PCR) Neg for Influ A (NEG) Influenza Type B (RT-PCR) Neg for Influ B (NEG) Blood Gas Sample Site R Radial Bedside Blood Gas pH (LAB) 7.38 (7.35-7.45) Bedside Blood Gas pCO2 (LAB) 30 mmHg (35-46) Bedside Blood Gas pO2 (LAB) 80 mmHg (80-95) Bedside Blood Gas HCO3 (LAB) 18 meq/L (19-24) Bedside Blood Gas Total CO2 19 mEq/l (24-31) Bedside Blood Gas Base Excess (LAB) -7.0 meq/L (-9-1.8) Bedside Blood Gas O2 Saturation 96.0 % (90-95) Carl Test Pass Oxygen Delivery Device Cannula Test 05/18/17 04:10 05/18/17 04:12 05/18/17 06:16 05/18/17 10:21 White Blood Count 13.15 K/uL (4.8-10.8) Red Blood Count 2.88 M/uL (4.7-6.1) Hemoglobin 9.8 g/dL (14.0-18.0) Hematocrit 29.9 % (42-52) Mean Corpuscular Volume 103.8 fL (80-100) Mean Corpuscular Hemoglobin 34.0 pg (25-34) Mean Corpuscular Hemoglobin Concent 32.8 g/dl (32-36) Platelet Count 245 K/uL (130-400) Mean Platelet Volume 9.8 fL (7.4-10.4) Neutrophils (%) (Auto) 94.6 % Lymphocytes (%) (Auto) 3.3 % Monocytes (%) (Auto) 1.7 % Eosinophils (%) (Auto) 0.0 % Basophils (%) (Auto) 0.2 % Neutrophils # (Auto) 12.42 K/uL (1.4-6.5) Lymphocytes # (Auto) 0.44 K/uL (1.2-3.4) Monocytes # (Auto) 0.23 K/uL (0.11-0.59) Eosinophils # (Auto) 0.00 K/uL (0-0.5) Basophils # (Auto) 0.03 K/uL (0-0.2) RDW Standard Deviation 54.9 fL (36.4-46.3) RDW Coefficient of Variation 14.6 % (11.5-14.5) Immature Granulocyte % (Auto) 0.2 % Immature Granulocyte # (Auto) 0.03 K/uL (0.00-0.02) Venous Blood pH 7.40 (7.36-7.41) Venous Blood Partial Pressure CO2 45 mmHg (38.0-50.0) Venous Blood Partial Pressure O2 42 mmHg Venous Blood HCO3 27 mmol/L Venous Blood Oxygen Saturation 73.7 % Venous Blood Base Excess 2.0 mEq/L Sodium Level 135 mmol/L (136-145) Potassium Level 3.5 mmol/L (3.5-5.1) Chloride Level 96 mmol/L (98-107) Carbon Dioxide Level 25 mmol/L (21-32) Anion Gap 14.0 mmol/L (3-11) Blood Urea Nitrogen 27 mg/dl (7-18) Creatinine 6.30 mg/dl (0.60-1.40) Est Creatinine Clear Calc Drug Dose 15.8 ml/min Estimated GFR () 10.9 Estimated GFR (Non- 9.4 BUN/Creatinine Ratio 4.3 (10-20) Random Glucose 251 mg/dl (70-99) Estimated Average Glucose 143 mg/dl Hemoglobin A1c 6.6 % (4.5-5.6) Lactic Acid Level 5.7 mmol/L (0.4-2.0) 2.3 mmol/L (0.4-2.0) Calcium Level 8.5 mg/dl (8.5-10.1) Phosphorus Level 3.1 mg/dl (2.5-4.9) Magnesium Level 2.0 mg/dl (1.8-2.4) Total Bilirubin 1.0 mg/dl (0.2-1) Direct Bilirubin 0.3 mg/dl (0-0.2) Aspartate Amino Transf (AST/SGOT) 31 U/L (15-37) Alanine Aminotransferase (ALT/SGPT) 25 U/L (12-78) Alkaline Phosphatase 134 U/L (45-117) Creatine Kinase MB 24.0 ng/ml (0.5-3.6) Troponin I 5.890 ng/ml (0-0.045) Total Protein 6.9 gm/dl (6.4-8.2) Albumin 2.7 gm/dl (3.4-5.0) Creatine Kinase MB Ratio (0-3.0) Bedside Glucose (other) 183 mg/dl (70-99) Test 05/18/17 10:36 05/18/17 11:12 05/18/17 11:52 05/18/17 12:12 Bedside Glucose 66 mg/dl (70-99) 139 mg/dl (70-99) Bedside Glucose (other) 120 mg/dl (70-99) Creatine Kinase MB Ratio (0-3.0) Test 05/18/17 12:32 Creatine Kinase MB 39.5 ng/ml (0.5-3.6) Troponin I 19.100 ng/ml (0-0.045) Random Vancomycin Level 24.9 mcg/ml Assessment & Plan Assessment * 51 yo M in ICU with sepsis * Possible penicillin, clindamycin allergies (unknown reaction). Nausea/ vomiting to ciprofloxacin, levofloxacin * Recent admission 04/29-05/06 for sepsis * Completed 7 day course of antibiotics on last admission as follows: * Cefepime, aztreonam, vancomycin x1 on 04/29 * Imipenem 04/30-05/04 * Linezolid 04/30-05/02 * Doxycycline po 05/04-05/06 * Renal * On HD as outpatient - last session yesterday (05/17) * No HD anticipated today per ICU rounds. 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 Regimen may need to be adjusted if patient * ID consult - continue current antibiotics Vancomycin * Goal pre-HD level 15-20 mcg/mL * Vancomycin 1750 mg (21 mg/kg) received last night @ 1999 * Random level today 24.9 mcg/mL * Will order repeat random level prior to anticipated HD session tomorrow - would like two consecutive levels ~24 hours apart with no HD or vancomycin doses in-between to assess patient-specific non-HD clearance Plan * No additional vancomycin at this time * Random vancomycin level in AM Pharmacy will continue to follow and will adjust dose/frequency as necessary. Thank you
--- NOTE | 2017-05-18 15:30 | Pharmacy Progress Note ---
Glycemic Control Intl Consult Date of Service May 18, 2017. Scope Glycemic Pharmacist consulted by Dr Astudillo on 05/17 for glycemic control and to write orders per [facility] within [facility] inpatient glycemic control protocol Objective Weight (Kilograms): 83.300 Accuchecks BSG (last 24hrs): Test 05/17/17 17:41 05/17/17 18:43 05/17/17 19:22 05/17/17 22:12 Random Glucose 236 mg/dl (70-99) Bedside Glucose 273 mg/dl (70-99) 279 mg/dl (70-99) 335 mg/dl (70-99) Test 05/18/17 04:10 05/18/17 07:54 05/18/17 10:36 05/18/17 11:52 Random Glucose 251 mg/dl (70-99) Bedside Glucose 133 mg/dl (70-99) 66 mg/dl (70-99) 139 mg/dl (70-99) Laboratory Data (last 24hrs) Test 05/17/17 17:41 05/18/17 04:10 Anion Gap 14.0 mmol/L 14.0 mmol/L BUN/Creatinine Ratio 3.1 4.3 Blood Urea Nitrogen 15 mg/dl 27 mg/dl Creatinine 4.77 mg/dl 6.30 mg/dl Potassium Level 3.7 mmol/L 3.5 mmol/L Sodium Level 135 mmol/L 135 mmol/L White Blood Count 17.50 K/uL 13.15 K/uL Red Blood Count 3.46 M/uL 2.88 M/uL Hemoglobin 11.7 g/dL 9.8 g/dL Hematocrit 36.3 % 29.9 % Mean Corpuscular Volume 104.9 fL 103.8 fL Mean Corpuscular Hemoglobin 33.8 pg 34.0 pg Mean Corpuscular Hemoglobin Concent 32.2 g/dl 32.8 g/dl Platelet Count 258 K/uL 245 K/uL Mean Platelet Volume 9.7 fL 9.8 fL Neutrophils (%) (Auto) 84.0 % 94.6 % Lymphocytes (%) (Auto) 8.5 % 3.3 % Monocytes (%) (Auto) 5.8 % 1.7 % Eosinophils (%) (Auto) 0.8 % 0.0 % Basophils (%) (Auto) 0.6 % 0.2 % Neutrophils # (Auto) 14.71 K/uL 12.42 K/uL Lymphocytes # (Auto) 1.48 K/uL 0.44 K/uL Monocytes # (Auto) 1.01 K/uL 0.23 K/uL Eosinophils # (Auto) 0.14 K/uL 0.00 K/uL Basophils # (Auto) 0.11 K/uL 0.03 K/uL Hemoglobin A1c 6.6 % HbA1c Test 05/18/17 04:10 Hemoglobin A1c 6.6 % (4.5-5.6) H Recent Pertinent Medications Outpatient Anti-diabetic Regimen: * Novolog pump * A1c = 6.6 % [date] Risk Factors for Insulin Resistance: * Steroids: Methylprednisolone 40 mg IV q6h * Infection: Sepsis * Pressors: Norepinephrine (on hold since 05/18 @ 0600) * Diet: yes Assessment & Plan ASSESSMENT: * 51 yo brittle Type 1 diabetic known to our service * Significant stressors in brittle type 1 diabetic in ICU - insulin drip is best to manage BSG's at this time * Note: insulin drip *must* continue in type 1 diabetics as they require at least some basal insulin. Pending order written for RN to call pharmacy or cashier self service gasoline if insulin drip protocol indicates to hold drip for longer than 30 minutes. Patient may require dextrose administration to allow for continued insulin administration without hypoglycemia PLAN FOR INPATIENT GLYCEMIC CONTROL: * Continue IV insulin infusion * Goal Range 110 - 180 mg/dl * In the critical care setting, continuous IV insulin infusion has been shown to be the best method for achieving glycemic targets. * Novolog HS for CHO coverage only per insulin drip calculator * Please note that the plan above was derived based on current level of insulin resistance and hospital stress. These recommendations are appropriate for inpatient admission only. Plan of care upon discharge will need to be reassessed to avoid potential outpatient hypo/hyperglycemia. Thank you.
--- NOTE | 2017-05-18 16:16 | Nephrology Consultation ---
Nephrology Consultation Date & Providers Date of Consultation: May 18, 2017. Primary Care Provider: No Doctor, Assigned Referring Provider: Reason for Consultation ESRD History of Present Illness Mr. Clark was seen & examined in the ICU at the request of Dr. Gutierrez to provide inpatient hemodialysis and assist with medical management. Medical records in the hospital EMR were reviewed during the patient's evaluation today and are summarized as follows: Mr. Clark has a complex medical history. He has had IDDM since childhood. He has developed diabetic nephropathy and progressed to ESRD 12/25. He now dialyzes TTS at the [facility] HD unit. His medical history is significant for bipolar disorder, hypertension, anemia, secondary hyperparathyroidism, hypercholesterolemia, COPD, peripheral vascular disease w/ diabetic foot ulcers, and severe tracheomalacia w/ chronic bronchiectasis. Mr. Clark was dialyzed yesterday without complication. Following dialysis he developed progressive dyspnea. He presented to the ED yesterday evening. He was admitted to the ICU for recurrent bronchitis w/ labored respirations. Mr. Clark was relatively hypotensive at the time of presentation. He received 1 L 0.9 NS and was started on antibiotic therapy. Influenza was negative. Mycoplasma testing and blood cultures are pending. Past Medical/Surgical History Medical: # ESRD on HD ([facility] TTS 4 hrs 2K 2Ca F-180NR Qb 450 cc/min EDW 83kg) # IDDM # HTN # PVD # Anemia # sHPT # Hypothyroidism # Hypercholesterolemia # Bipolar disorder # COPD (Quit smoking ~ 2013) # Severe tracheal malacia with chronic bronchiectasis - on nocturnal CPAP therapy Surgical: # AVF creation Allergies Coded Allergies: Codeine (Verified Allergy, Intermediate, NAUSEA AND VOMITING, 05/07/17) QUESTIONABLE ALLERGY, STILL QUESTIONABLE BUT D/David SHONDA WITH COD 02/20/17 Tigecycline (Verified Allergy, Mild, ?RASH, 05/07/17) Clindamycin (Verified Allergy, Unknown, Unknown, 05/07/17) Penicillins (Verified Allergy, Unknown, PT HAS HAD MEFOXIN W/OUT A PROBLEM , 05/07/17) HAD MEFOXIN W/O PROBLEM Ciprofloxacin (Verified Adverse Reaction, Intermediate, nausea,vomiting, generalized weakness, 05/07/17) Morphine (Verified Adverse Reaction, Intermediate, TREMBLING,NAUSEA AND VOMITING, 05/07/17) Opioid Analgesics (Verified Adverse Reaction, Intermediate, "ALL RX PAIN MEDS CAUSE SEVERE NAUSEA", 05/07/17) Levofloxacin (Verified Adverse Reaction, Mild, Cipro/Levaquin (IV & po) = N & V, 05/07/17) Oxycodone (Verified Adverse Reaction, Unknown, N/V/D, 05/07/17) SPOKE WITH PATIENT ON 07/29/15, DOES NOT REMEMBER ANY DIFFICULTY BREATHING JUST HIT HIM HARD. Inpatient Medications Current Inpatient Medications Medications (Trade) Dose Ordered Sig/Etta Route Start Time Stop Time Status Last Admin Dose Admin Miscellaneous Information (Consult) 1 ea UD PRN N/A 05/17/17 19:00 06/16/17 18:59 Atorvastatin Calcium (Lipitor Tab) 40 mg HS PO 05/17/17 21:00 06/16/17 20:59 05/18/17 00:11 40 MG Bupropion HCl (Wellbutrin-Sr Tab) 200 mg QPM PO 05/17/17 21:00 06/16/17 20:59 05/18/17 00:11 200 MG Clopidogrel Bisulfate (plAVix TAB) 75 mg Q2D@0900 PO 05/18/17 09:00 06/17/17 08:59 05/18/17 07:43 75 MG Gabapentin (Neurontin Cap) 100 mg BID PO 05/17/17 21:00 06/16/17 20:59 05/18/17 07:43 100 MG Albuterol/ Ipratropium (Duoneb) 3 ml QID PRN INH 05/17/17 20:15 06/16/17 20:14 Levothyroxine Sodium (Synthroid Tab) 112 mcg DAILYBB PO 05/18/17 06:00 06/17/17 05:59 05/18/17 06:37 112 MCG Miscellaneous Information (Order Awaiting Action) 1 ea QS N/A 05/18/17 00:00 06/17/17 00:00 Sevelamer HCl (Renagel Tab) 1,600 mg TIDM PO 05/18/17 07:15 06/17/17 07:14 05/18/17 07:43 1,600 MG Lactobacillus Acidophilus (Floranex Tab) 4 tab TIDM PO 05/18/17 07:15 06/17/17 07:59 05/18/17 06:37 4 TAB Heparin Sodium (Porcine) (Heparin Sq 5000 Unit/0.5ml) 5,000 unit Q12 SQ 05/17/17 23:00 06/16/17 22:59 05/18/17 07:46 5,000 UNIT Acetaminophen (Tylenol Tab) 650 mg Q4H PRN PO 05/17/17 20:15 06/16/17 20:14 Pantoprazole Sodium 40 mg/ Syringe 10 ml @ 5 mls/min DAILY IV 05/18/17 09:00 05/21/17 09:01 05/18/17 07:43 5 MLS/MIN Levalbuterol (Xopenex 1.25MG/ 0.5ML Neb) 1.25 mg Q8R INH 05/18/17 00:00 06/17/17 00:00 05/18/17 15:04 1.25 MG Miscellaneous Information (Icu Protocol For Hyperglycemia) 1 ea PRN PRN N/A 05/17/17 20:15 05/19/17 20:14 Glucose (Glucose 40% Gel) 15-30 GRAMS 15 GRAMS... UD PRN PO 05/17/17 20:15 06/16/17 20:14 Glucose (Glucose Chew Tab) 4-8 Tablets 4 Tabl... UD PRN PO 05/17/17 20:15 06/16/17 20:14 Dextrose (Dextrose 50% 50ML Syringe) 25-50ML OF 50% DW IV FOR... UD PRN IV 05/17/17 20:15 06/16/17 20:14 05/18/17 10:42 50 ML Glucagon (Glucagon Inj) 1 mg UD PRN SQ 05/17/17 20:15 06/16/17 20:14 Miscellaneous Information (Consult Glycemic Management Pharmacy) 1 ea UD PRN N/A 05/17/17 20:52 06/16/17 20:51 Levofloxacin 500 mg/Prmx 100 ml @ 100 mls/hr Q48H IV 05/19/17 20:00 05/24/17 19:59 Norepinephrine Bitartrate 8 mg/ Dextrose 508 ml @ 0 mls/hr Q0M PRN IV 05/17/17 20:31 06/16/17 20:30 05/17/17 21:41 34.5 MLS/HR Methylprednisolone Sodium Succinate 40 mg/Syringe 0.64 ml @ 1.5 mls/min Q6H IV 05/18/17 02:00 06/17/17 01:59 05/18/17 14:18 1.5 MLS/MIN Insulin Human Regular 250 units/ Sodium Chloride 252.5 ml @ 0 mls/hr Q24H IV 05/17/17 22:45 06/16/17 22:44 05/17/17 22:54 3.4 MLS/HR Insulin Aspart (novoLOG ASPART) SLIDING SCALE PCHS SC 05/18/17 08:00 06/17/17 07:59 05/18/17 08:18 2 UNITS Miscellaneous Information (Pending Order) 1 ea QS N/A 05/18/17 16:00 06/17/17 15:59 Cefepime HCl 1000 mg/Syringe 11 ml @ 5.5 mls/min DAILY@1999 IV 05/18/17 20:00 05/24/17 19:59 Family History FH: heart disease Negative for CKD / ESRD Social History Smoking Status: Former Smoker Drug Use: none Marital Status: Housing Status: lives with family Occupation: disabled . Medically disabled. Former smoker (Quit 2013) Review of Systems Constitutional: No fever Respiratory: + shortness of breath Cardiovascular: No chest pain Abdomen: No nausea, No vomiting A complete review of systems was performed. Pertinent positives are noted above. All other systems are negative. Physical Exam Date Time Temp Pulse Resp B/P (MAP) Pulse Ox O2 Delivery O2 Flow Rate FiO2 05/18/17 15:05 108 22 95 Nasal Cannula 3.0 05/18/17 14:00 108 22 127/72 (90) 93 High Flow Oxygen 40.0 05/18/17 12:00 109 30 106/59 (75) 92 High Flow Oxygen 40.0 05/18/17 12:00 High Flow Oxygen 40.0 05/18/17 10:00 100 22 113/64 (80) 94 High Flow Oxygen 40.0 05/18/17 08:00 92 High Flow Oxygen 40.0 05/18/17 08:00 High Flow Oxygen 30 05/18/17 08:00 36.8 96 22 111/61 (78) 92 High Flow Oxygen 40.0 05/18/17 07:27 98 22 95 Nasal Cannula 3.0 05/18/17 07:00 36.9 100 20 99/58 (71) 92 05/18/17 06:31 100 20 99/58 (71) 92 05/18/17 06:01 96 13 104/61 (74) 94 05/18/17 05:31 99 20 98/57 (66) 92 05/18/17 05:06 105 26 117/63 (74) 95 05/18/17 04:31 95 24 102/57 (74) 93 05/18/17 04:01 97 18 113/60 (86) 98 05/18/17 04:00 36.9 05/18/17 04:00 96 High Flow Oxygen 30 05/18/17 03:31 102 21 107/62 (74) 96 05/18/17 03:01 117 29 119/74 (82) 95 05/18/17 02:31 108 27 117/63 (87) 96 05/18/17 02:01 112 27 116/70 (87) 95 05/18/17 01:31 108 19 114/64 (88) 96 05/18/17 01:01 113 29 114/63 (79) 95 05/18/17 00:31 112 25 109/66 (78) 95 05/18/17 00:01 119 29 122/74 (87) 95 05/17/17 23:59 36.7 05/17/17 23:59 96 Nasal Cannula 3.0 05/17/17 23:31 119 37 130/80 (88) 97 05/17/17 23:25 114 26 96 Nasal Cannula 3.0 05/17/17 23:14 113 32 123/74 (87) 98 05/17/17 22:20 36.8 110 26 140/80 99 Nasal Cannula 3.0 05/17/17 21:42 96 20 115/71 100 Oxymask 4.0 05/17/17 21:15 96 22 82/58 100 Oxymask 4.0 05/17/17 20:42 94 05/17/17 20:20 87 22 82/46 100 Nasal Cannula 4.0 05/17/17 19:52 89 22 93/57 100 Nasal Cannula 4.0 05/17/17 19:44 91 22 86/57 99 Nasal Cannula 4.0 05/17/17 19:34 36.8 05/17/17 19:27 87 22 80/51 97 Nasal Cannula 4.0 05/17/17 19:11 88 21 91 Nasal Cannula 4.0 05/17/17 19:01 69/41 05/17/17 19:00 70/47 05/17/17 18:58 69/43 05/17/17 18:57 67/44 05/17/17 18:49 76/52 05/17/17 18:41 92 20 91 05/17/17 18:39 88 20 76/52 92 Nasal Cannula 4.0 05/17/17 18:11 111 26 05/17/17 17:41 111 32 05/17/17 17:36 113 20 100 05/17/17 17:35 110 24 99 Nasal Cannula 3.0 05/17/17 17:01 159/99 05/17/17 16:56 103 20 97 05/17/17 16:53 97 Nasal Cannula 4.0 05/17/17 16:51 104 23 97 05/17/17 16:40 174/94 05/17/17 16:30 103 05/17/17 16:26 169/104 05/17/17 16:21 98 Room Air 05/17/17 16:21 98 Nasal Cannula 4.0 05/17/17 16:21 36.6 101 18 169/104 98 Nasal Cannula 4.0 General Appearance: no apparent distress Head: normocephalic, atraumatic Eyes: PERRL, EOMI Neck: no adenopathy Respiratory/Chest: + rhonchi Cardiovascular: + tachycardia Abdomen/GI: normal bowel sounds, non tender, soft Extremities/Musculoskelatal: + swelling (trace pretibial pitting edema) Neurologic/Psych: alert, oriented x 3 Laboratory Results Last 24 Hours Test 05/17/17 17:41 05/17/17 18:43 05/17/17 19:22 05/17/17 19:57 White Blood Count 17.50 K/uL Red Blood Count 3.46 M/uL Hemoglobin 11.7 g/dL Hematocrit 36.3 % Mean Corpuscular Volume 104.9 fL Mean Corpuscular Hemoglobin 33.8 pg Mean Corpuscular Hemoglobin Concent 32.2 g/dl Platelet Count 258 K/uL Mean Platelet Volume 9.7 fL Neutrophils (%) (Auto) 84.0 % Lymphocytes (%) (Auto) 8.5 % Monocytes (%) (Auto) 5.8 % Eosinophils (%) (Auto) 0.8 % Basophils (%) (Auto) 0.6 % Neutrophils # (Auto) 14.71 K/uL Lymphocytes # (Auto) 1.48 K/uL Monocytes # (Auto) 1.01 K/uL Eosinophils # (Auto) 0.14 K/uL Basophils # (Auto) 0.11 K/uL RDW Standard Deviation 55.8 fL RDW Coefficient of Variation 14.7 % Immature Granulocyte % (Auto) 0.3 % Immature Granulocyte # (Auto) 0.05 K/uL Prothrombin Time 10.3 SECONDS Prothromb Time International Ratio 1.0 Activated Partial Thromboplast Time 28.9 SECONDS Partial Thromboplastin Ratio 1.1 Sodium Level 135 mmol/L Potassium Level 3.7 mmol/L Chloride Level 94 mmol/L Carbon Dioxide Level 27 mmol/L Anion Gap 14.0 mmol/L Blood Urea Nitrogen 15 mg/dl Creatinine 4.77 mg/dl Est Creatinine Clear Calc Drug Dose 20.9 ml/min Estimated GFR () 15.2 Estimated GFR (Non- 13.1 BUN/Creatinine Ratio 3.1 Random Glucose 236 mg/dl Calcium Level 8.5 mg/dl Total Bilirubin 1.0 mg/dl Aspartate Amino Transf (AST/SGOT) 21 U/L Alanine Aminotransferase (ALT/SGPT) 28 U/L Alkaline Phosphatase 161 U/L Troponin I 0.043 ng/ml Pro-B-Type Natriuretic Peptide > 51171 pg/ml Total Protein 7.8 gm/dl Albumin 3.1 gm/dl Globulin 4.7 gm/dl Albumin/Globulin Ratio 0.7 Procalcitonin 0.51 ng/ml Random Cortisol 20.67 mcg/dl Bedside Glucose 273 mg/dl 279 mg/dl Venous Blood pH 7.27 Venous Blood Partial Pressure CO2 42 mmHg Venous Blood Partial Pressure O2 30 mmHg Venous Blood HCO3 19 mmol/L Venous Blood Oxygen Saturation < 60.0 % Venous Blood Base Excess -7.5 mEq/L Lactic Acid Level 2.7 mmol/L Ammonia 20.3 umol/L Test 05/17/17 21:22 05/17/17 22:12 05/17/17 22:50 05/18/17 00:04 Influenza Type A (RT-PCR) Neg for Influ A Influenza Type B (RT-PCR) Neg for Influ B Bedside Glucose 335 mg/dl Blood Gas Sample Site R Radial Bedside Blood Gas pH (LAB) 7.38 Bedside Blood Gas pCO2 (LAB) 30 mmHg Bedside Blood Gas pO2 (LAB) 80 mmHg Bedside Blood Gas HCO3 (LAB) 18 meq/L Bedside Blood Gas Total CO2 19 mEq/l Bedside Blood Gas Base Excess (LAB) -7.0 meq/L Bedside Blood Gas O2 Saturation 96.0 % Carl Test Pass Oxygen Delivery Device Cannula Bedside Glucose (other) 428 mg/dl Test 05/18/17 01:01 05/18/17 02:06 05/18/17 03:03 05/18/17 04:10 Bedside Glucose (other) 394 mg/dl 352 mg/dl 305 mg/dl White Blood Count 13.15 K/uL Red Blood Count 2.88 M/uL Hemoglobin 9.8 g/dL Hematocrit 29.9 % Mean Corpuscular Volume 103.8 fL Mean Corpuscular Hemoglobin 34.0 pg Mean Corpuscular Hemoglobin Concent 32.8 g/dl Platelet Count 245 K/uL Mean Platelet Volume 9.8 fL Neutrophils (%) (Auto) 94.6 % Lymphocytes (%) (Auto) 3.3 % Monocytes (%) (Auto) 1.7 % Eosinophils (%) (Auto) 0.0 % Basophils (%) (Auto) 0.2 % Neutrophils # (Auto) 12.42 K/uL Lymphocytes # (Auto) 0.44 K/uL Monocytes # (Auto) 0.23 K/uL Eosinophils # (Auto) 0.00 K/uL Basophils # (Auto) 0.03 K/uL RDW Standard Deviation 54.9 fL RDW Coefficient of Variation 14.6 % Immature Granulocyte % (Auto) 0.2 % Immature Granulocyte # (Auto) 0.03 K/uL Venous Blood pH 7.40 Venous Blood Partial Pressure CO2 45 mmHg Venous Blood Partial Pressure O2 42 mmHg Venous Blood HCO3 27 mmol/L Venous Blood Oxygen Saturation 73.7 % Venous Blood Base Excess 2.0 mEq/L Sodium Level 135 mmol/L Potassium Level 3.5 mmol/L Chloride Level 96 mmol/L Carbon Dioxide Level 25 mmol/L Anion Gap 14.0 mmol/L Blood Urea Nitrogen 27 mg/dl Creatinine 6.30 mg/dl Est Creatinine Clear Calc Drug Dose 15.8 ml/min Estimated GFR () 10.9 Estimated GFR (Non- 9.4 BUN/Creatinine Ratio 4.3 Random Glucose 251 mg/dl Estimated Average Glucose 143 mg/dl Hemoglobin A1c 6.6 % Lactic Acid Level 5.7 mmol/L Calcium Level 8.5 mg/dl Phosphorus Level 3.1 mg/dl Magnesium Level 2.0 mg/dl Total Bilirubin 1.0 mg/dl Direct Bilirubin 0.3 mg/dl Aspartate Amino Transf (AST/SGOT) 31 U/L Alanine Aminotransferase (ALT/SGPT) 25 U/L Alkaline Phosphatase 134 U/L Creatine Kinase MB 24.0 ng/ml Troponin I 5.890 ng/ml Total Protein 6.9 gm/dl Albumin 2.7 gm/dl Test 05/18/17 04:12 05/18/17 04:13 05/18/17 05:03 05/18/17 06:16 Creatine Kinase MB Ratio Bedside Glucose (other) 257 mg/dl 225 mg/dl 183 mg/dl Test 05/18/17 07:54 05/18/17 10:21 05/18/17 10:36 05/18/17 11:12 Bedside Glucose 133 mg/dl 66 mg/dl Lactic Acid Level 2.3 mmol/L Bedside Glucose (other) 120 mg/dl Test 05/18/17 11:52 05/18/17 12:12 05/18/17 12:32 Bedside Glucose 139 mg/dl Creatine Kinase MB Ratio Creatine Kinase MB 39.5 ng/ml Troponin I 19.100 ng/ml Random Vancomycin Level 24.9 mcg/ml Impression (1) End-stage renal disease on hemodialysis (2) Bronchitis (3) Tracheomalacia (4) Diabetes mellitus (5) Anemia Patient admitted to the hospital w/ recurrent bronchitis. He has a history of severe tracheal malacia with chronic bronchiectasis. He tested negative for Influenza. He is now on broad spectrum antibiotics. Blood cultures and Mycoplasma testing are pending. CXR is negative for infiltrates. PMH - ESRD due to diabetic nephropathy on IHD since 12/25 (HD TTS at [facility] - 4 hrs 2K 2Ca F180NR Qb 450 cc/min HCO3 34 EDW 83 kg), IDDM, HTN , PVD s/p R femoral artery bypass, anemia, hypothyroidism, hypercholesterolemia , bipolar disorder, COPD w/ severe tracheomalacia and chronic bronchiectasis ( quit smoking ~ 2013). Recommendations END STAGE RENAL DISEASE: -- Volume status and electrolyte balance are acceptable. No acute indication for HD today -- Will schedule HD for am -- Protect L arm AVF for HD ID: -- Cefipime and Levaquin doses are appropriate for ESRD -- Await blood and Mycoplasma cultures ANEMIA: -- Low grade. Will monitor and provide GINO w/ HD 60 minutes critical care time provided. This was necessary to review records, examine patient, discuss management w/ ICU team and coordinate dialysis services.
[2017-05-18] MEDS ORDERED: METOPROLOL TARTRATE 25 MG TAB PO ONE (17:38)
[2017-05-18 18:05] LABS: PTT PATIENT 28.8 SECONDS (21.0-31.0)
[2017-05-18] MEDS: HEPARIN 25,000 UNIT/500ML D5W 500 ML IV PRN (18:23)
[2017-05-18] MEDS ORDERED: CEFEPIME IV SCH (20:00)
[2017-05-18] MEDS ORDERED: CEFEPIME IV 1,000 MG in SYRINGE 0 ML IV SCH (20:00)
[2017-05-18] MEDS ORDERED: METOPROLOL TARTRATE 25 MG TAB PO SCH (21:00)
--- NOTE | 2017-05-18 23:54 | Critical Care Progress Note ---
Critical Care Progress Note Date of Service May 18, 2017. ICU Day ICU Day Number: [address] Gutierrez Subjective Patient refusing DVT prophylaxis as well as to wear SCD stockings. Patient not giving sufficient teach back in terms of risks and benefits of accepting or refusing medical treatment. I question what the patient has capacity, patient continued to perseverate on medical conditions, it does not appear to either exhibited clear understanding, or appreciation of the risks and benefits. There is not adequate teach back to fully evaluate the rationalization reasoning. Objective General -on high flow nasal cannula Eyes - PERRL, EOMI No icterus, gaze conjugate ENT - Mucosa moist, Neck - Supple, trachea midline, no masses or lymphadenopathy, no JVD or bruits Lungs -coarse breath sounds throughout Heart - Reg rate and rhythm, No murmur, rubs, clicks, or gallops appreciated, normal peripheral perfusion Abdomen - Absent BS, no bruits noted, tympanic to percussion, soft, nontender, nondistended, no organomegaly Extremities - Edema present, pedal pulses intact, multiple missing toes, skin warm but discolored bilaterally Neuro - A&O x 3 Strength extremities equal and appropriate bilaterally CN: No evidence of focal deficit Assessment & Plan PLAN: Resp: * Shortness of breath * Discontinue high flow oxygen which was utilized for mild PEEP * Recommend CPAP as recommended by pulmonary for sleep at night * Severe PNA: HAP * Continue Cefepime, Vanco, and Levaquin at this time * Recent Hospitalization for PNA on Zyvox and Meropenem and d/c on Doxy * Monitor Troughs and QTc * Patient unable to produce sputum specimen * Urine Legionella pending * Bronchodilators in place * Continue home regimen * Discussed with Dr. stone of pulmonary service * Goal O2 Saturations >94% * Repeat CXR in AM Neuro/PSYCH * Continue home medications: Gabapentin, Sensipar, and Wellbutrin * Concern regarding capacity to consent. * Patient recently lost who is primary caregiver * This could represent grief reaction, adjustment disorder, major depressive disorder * Would benefit from a home safety eval as well as multi specialty care review to ensure patient has adequate follow-up and family appreciates medical decisions as well as refuses medical care CV: * Septic Shock * Hypotension resolved * Troponin elevated, similar to previous admission * Last ECHO: EF 60% Grade 1 diastolic dysfunction * Continue home medications including: * Norvasc, Lipitor, Lopressor * Monitor on telemetry Fluids/Renal: * ESRD on HD, HD today * Reviewed a renal consultation * Minimize fluids; Concentrate where possible ID: * Continue Abx: Cefepime, Vanco, and Levaquin (first day of tx: 05/17) * Septic Shock: Resolved * Lactic Acid: Improved * WBC elevated, trend * Afebrile GI/Nutrition: * Renal diet Heme: * DVT prophylaxis in place: Pt refusing * Continue Pts Plavix Endocrine: * DM1 with hyperglycemia * Pt entered hospital with insulin pump off * Insulin infusion * Hypothyroidism * Continue Synthroid 112mcg Patient medically complex however hypotension from possible severe sepsis has improved. He has been off vasoactive for 8+ hours stable for downgrade to telemetry status. I discussed this case with the hospitalist Data Medications: Current Inpatient Medications Medications (Trade) Dose Ordered Sig/Etta Route Start Time Stop Time Status Last Admin Dose Admin Miscellaneous Information (Consult) 1 ea UD PRN N/A 05/17/17 19:00 06/16/17 18:59 Atorvastatin Calcium (Lipitor Tab) 40 mg HS PO 05/17/17 21:00 06/16/17 20:59 05/18/17 21:09 40 MG Bupropion HCl (Wellbutrin-Sr Tab) 200 mg QPM PO 05/17/17 21:00 06/16/17 20:59 05/18/17 21:11 200 MG Clopidogrel Bisulfate (plAVix TAB) 75 mg Q2D@0900 PO 05/18/17 09:00 06/17/17 08:59 05/18/17 07:43 75 MG Gabapentin (Neurontin Cap) 100 mg BID PO 05/17/17 21:00 06/16/17 20:59 05/18/17 21:10 100 MG Albuterol/ Ipratropium (Duoneb) 3 ml QID PRN INH 05/17/17 20:15 06/16/17 20:14 Levothyroxine Sodium (Synthroid Tab) 112 mcg DAILYBB PO 05/18/17 06:00 06/17/17 05:59 05/18/17 06:37 112 MCG Miscellaneous Information (Order Awaiting Action) 1 ea QS N/A 05/18/17 00:00 06/17/17 00:00 Sevelamer HCl (Renagel Tab) 1,600 mg TIDM PO 05/18/17 07:15 06/17/17 07:14 05/18/17 15:56 1,600 MG Lactobacillus Acidophilus (Floranex Tab) 4 tab TIDM PO 05/18/17 07:15 06/17/17 07:59 05/18/17 15:56 4 TAB Acetaminophen (Tylenol Tab) 650 mg Q4H PRN PO 05/17/17 20:15 06/16/17 20:14 Levalbuterol (Xopenex 1.25MG/ 0.5ML Neb) 1.25 mg Q8R INH 05/18/17 00:00 06/17/17 00:00 05/18/17 23:28 1.25 MG Miscellaneous Information (Icu Protocol For Hyperglycemia) 1 ea PRN PRN N/A 05/17/17 20:15 05/19/17 20:14 Glucose (Glucose 40% Gel) 15-30 GRAMS 15 GRAMS... UD PRN PO 05/17/17 20:15 06/16/17 20:14 Glucose (Glucose Chew Tab) 4-8 Tablets 4 Tabl... UD PRN PO 05/17/17 20:15 06/16/17 20:14 Dextrose (Dextrose 50% 50ML Syringe) 25-50ML OF 50% DW IV FOR... UD PRN IV 05/17/17 20:15 06/16/17 20:14 05/18/17 10:42 50 ML Glucagon (Glucagon Inj) 1 mg UD PRN SQ 05/17/17 20:15 06/16/17 20:14 Miscellaneous Information (Consult Glycemic Management Pharmacy) 1 ea UD PRN N/A 05/17/17 20:52 06/16/17 20:51 Levofloxacin 500 mg/Prmx 100 ml @ 100 mls/hr Q48H IV 05/19/17 20:00 05/24/17 19:59 Insulin Human Regular 250 units/ Sodium Chloride 252.5 ml @ 0 mls/hr Q24H IV 05/17/17 22:45 06/16/17 22:44 05/17/17 22:54 3.4 MLS/HR Insulin Aspart (novoLOG ASPART) SLIDING SCALE PCHS SD 05/18/17 08:00 06/17/17 07:59 05/18/17 17:14 5 UNITS Miscellaneous Information (Pending Order) 1 ea QS N/A 05/18/17 16:00 06/17/17 15:59 Cefepime HCl 1000 mg/Syringe 11 ml @ 5.5 mls/min DAILY@2000 IV 05/18/17 20:00 05/24/17 19:59 05/18/17 19:39 5.5 MLS/MIN Heparin Sodium (Porcine) (Heparin Iv Bolus) 2,000 unit TODAY@0600 IV 05/19/17 06:00 05/19/17 18:00 Heparin Sodium (Porcine) (Heparin Iv Bolus) 500 unit Q1H IV 05/19/17 06:00 05/19/17 08:01 Epoetin Diaz (Procrit Inj) 10,000 units TODAY@0600 IV. 05/19/17 06:00 05/19/17 18:00 Paricalcitol (Zemplar Inj) 3 mcg ONE IV. 05/19/17 06:00 05/19/17 18:00 Metoprolol Tartrate (Lopressor Tab) 12.5 mg BID PO 05/18/17 21:00 06/17/17 20:59 05/18/17 21:10 12.5 MG Heparin Sodium/ Dextrose 500 ml @ 28 mls/hr [id number] PRN IV 05/18/17 18:15 06/17/17 18:14 05/18/17 18:23 28 MLS/HR I & O: 24-Hour Column 05/19/17 08:00 Intake Total 805 ml Balance 805 ml Vital Signs: Date Time Temp Pulse Resp B/P (MAP) Pulse Ox O2 Delivery O2 Flow Rate FiO2 05/18/17 23:29 91 90 5.0 05/18/17 23:28 91 18 90 BiPAP/CPAP 5.0 05/18/17 22:25 105 95 5.0 05/18/17 20:02 37.2 101 23 120/70 (87) 94 High Flow Oxygen 40.0 30 05/18/17 20:00 94 High Flow Oxygen 40.0 30 05/18/17 18:00 105 40 127/79 (95) 94 High Flow Oxygen 40.0 05/18/17 16:00 91 High Flow Oxygen 40.0 05/18/17 16:00 36.7 111 22 123/71 (88) 91 High Flow Oxygen 40.0 05/18/17 15:05 108 22 95 Nasal Cannula 3.0 05/18/17 14:00 108 22 127/72 (90) 93 High Flow Oxygen 40.0 05/18/17 12:00 109 30 106/59 (75) 92 High Flow Oxygen 40.0 05/18/17 12:00 High Flow Oxygen 40.0 05/18/17 10:00 100 22 113/64 (80) 94 High Flow Oxygen 40.0 05/18/17 08:00 92 High Flow Oxygen 40.0 05/18/17 08:00 High Flow Oxygen 30 05/18/17 08:00 36.8 96 22 111/61 (78) 92 High Flow Oxygen 40.0 05/18/17 07:27 98 22 95 Nasal Cannula 3.0 05/18/17 07:00 36.9 100 20 99/58 (71) 92 05/18/17 06:31 100 20 99/58 (71) 92 05/18/17 06:01 96 13 104/61 (74) 94 05/18/17 05:31 99 20 98/57 (66) 92 05/18/17 05:06 105 26 117/63 (74) 95 05/18/17 04:31 95 24 102/57 (74) 93 05/18/17 04:01 97 18 113/60 (86) 98 05/18/17 04:00 36.9 05/18/17 04:00 96 High Flow Oxygen 30 05/18/17 03:31 102 21 107/62 (74) 96 05/18/17 03:01 117 29 119/74 (82) 95 05/18/17 02:31 108 27 117/63 (87) 96 05/18/17 02:01 112 27 116/70 (87) 95 05/18/17 01:31 108 19 114/64 (88) 96 05/18/17 01:01 113 29 114/63 (79) 95 05/18/17 00:31 112 25 109/66 (78) 95 05/18/17 00:01 119 29 122/74 (87) 95 05/17/17 23:59 36.7 05/17/17 23:59 96 Nasal Cannula 3.0 Laboratory Results: Last 24 Hours Test 05/18/17 00:04 05/18/17 01:01 05/18/17 02:06 05/18/17 03:03 Bedside Glucose (other) 428 mg/dl 394 mg/dl 352 mg/dl 305 mg/dl Test 05/18/17 04:10 05/18/17 04:12 05/18/17 04:13 05/18/17 05:03 White Blood Count 13.15 K/uL Red Blood Count 2.88 M/uL Hemoglobin 9.8 g/dL Hematocrit 29.9 % Mean Corpuscular Volume 103.8 fL Mean Corpuscular Hemoglobin 34.0 pg Mean Corpuscular Hemoglobin Concent 32.8 g/dl Platelet Count 245 K/uL Mean Platelet Volume 9.8 fL Neutrophils (%) (Auto) 94.6 % Lymphocytes (%) (Auto) 3.3 % Monocytes (%) (Auto) 1.7 % Eosinophils (%) (Auto) 0.0 % Basophils (%) (Auto) 0.2 % Neutrophils # (Auto) 12.42 K/uL Lymphocytes # (Auto) 0.44 K/uL Monocytes # (Auto) 0.23 K/uL Eosinophils # (Auto) 0.00 K/uL Basophils # (Auto) 0.03 K/uL RDW Standard Deviation 54.9 fL RDW Coefficient of Variation 14.6 % Immature Granulocyte % (Auto) 0.2 % Immature Granulocyte # (Auto) 0.03 K/uL Venous Blood pH 7.40 Venous Blood Partial Pressure CO2 45 mmHg Venous Blood Partial Pressure O2 42 mmHg Venous Blood HCO3 27 mmol/L Venous Blood Oxygen Saturation 73.7 % Venous Blood Base Excess 2.0 mEq/L Sodium Level 135 mmol/L Potassium Level 3.5 mmol/L Chloride Level 96 mmol/L Carbon Dioxide Level 25 mmol/L Anion Gap 14.0 mmol/L Blood Urea Nitrogen 27 mg/dl Creatinine 6.30 mg/dl Est Creatinine Clear Calc Drug Dose 15.8 ml/min Estimated GFR () 10.9 Estimated GFR (Non- 9.4 BUN/Creatinine Ratio 4.3 Random Glucose 251 mg/dl Estimated Average Glucose 143 mg/dl Hemoglobin A1c 6.6 % Lactic Acid Level 5.7 mmol/L Calcium Level 8.5 mg/dl Phosphorus Level 3.1 mg/dl Magnesium Level 2.0 mg/dl Total Bilirubin 1.0 mg/dl Direct Bilirubin 0.3 mg/dl Aspartate Amino Transf (AST/SGOT) 31 U/L Alanine Aminotransferase (ALT/SGPT) 25 U/L Alkaline Phosphatase 134 U/L Creatine Kinase MB 24.0 ng/ml Troponin I 5.890 ng/ml Total Protein 6.9 gm/dl Albumin 2.7 gm/dl Creatine Kinase MB Ratio Bedside Glucose (other) 257 mg/dl 225 mg/dl Test 05/18/17 06:16 05/18/17 07:54 05/18/17 09:59 05/18/17 10:21 Bedside Glucose (other) 183 mg/dl Bedside Glucose 133 mg/dl 83 mg/dl Lactic Acid Level 2.3 mmol/L Test 05/18/17 10:36 05/18/17 11:12 05/18/17 11:52 05/18/17 12:12 Bedside Glucose 66 mg/dl 139 mg/dl Bedside Glucose (other) 120 mg/dl Creatine Kinase MB Ratio Test 05/18/17 12:32 05/18/17 13:10 05/18/17 14:05 05/18/17 15:17 Creatine Kinase MB 39.5 ng/ml Troponin I 19.100 ng/ml Random Vancomycin Level 24.9 mcg/ml Bedside Glucose 145 mg/dl 120 mg/dl 116 mg/dl Test 05/18/17 15:58 05/18/17 17:01 05/18/17 17:44 05/18/17 18:07 Bedside Glucose 104 mg/dl 97 mg/dl 121 mg/dl Prothrombin Time 11.0 SECONDS Prothromb Time International Ratio 1.0 Activated Partial Thromboplast Time 28.8 SECONDS Partial Thromboplastin Ratio 1.1 Test 05/18/17 19:00 05/18/17 20:03 05/18/17 22:05 05/18/17 22:11 Bedside Glucose 123 mg/dl 117 mg/dl 114 mg/dl Troponin I 14.100 ng/ml
[2017-05-19] VITALS (41 sets, daily range): BP systolic 100–148; BP diastolic 67–94; PULSE 79–138; TEMP 36.3–36.8; O2SAT 90–100
--- NOTE | 2017-05-19 00:52 | Hospitalist Progress Note ---
Hospitalist Progress Note Date of Service May 18, 2017. Subjective Pt evaluation today including: conversation w/ patient, conversation w/ clinical sales consultant (Paper Tube Cutter) Patient feeling much better on high flow nasal cannula. He is coughing up mucus. Troponin trended upward and started on heparin drip today. He denies any chest pain. He has been off of vasopressors since this morning and blood pressures have remained stable throughout the day. Paper Tube Cutter recommends downgrade out of the intensive care unit. Patient reports his 1 week ago and he has been very upset and stressed out. All Other Systems: Reviewed and Negative Objective Vital Signs Date Time Temp Pulse Resp B/P (MAP) Pulse Ox O2 Delivery O2 Flow Rate FiO2 05/18/17 23:29 91 90 5.0 05/18/17 23:28 91 18 90 BiPAP/CPAP 5.0 05/18/17 22:25 105 95 5.0 05/18/17 20:02 37.2 101 23 120/70 (87) 94 High Flow Oxygen 40.0 30 05/18/17 20:00 94 High Flow Oxygen 40.0 30 05/18/17 18:00 105 40 127/79 (95) 94 High Flow Oxygen 40.0 05/18/17 16:00 91 High Flow Oxygen 40.0 05/18/17 16:00 36.7 111 22 123/71 (88) 91 High Flow Oxygen 40.0 05/18/17 15:05 108 22 95 Nasal Cannula 3.0 05/18/17 14:00 108 22 127/72 (90) 93 High Flow Oxygen 40.0 05/18/17 12:00 109 30 106/59 (75) 92 High Flow Oxygen 40.0 05/18/17 12:00 High Flow Oxygen 40.0 05/18/17 10:00 100 22 113/64 (80) 94 High Flow Oxygen 40.0 05/18/17 08:00 92 High Flow Oxygen 40.0 05/18/17 08:00 High Flow Oxygen 30 05/18/17 08:00 36.8 96 22 111/61 (78) 92 High Flow Oxygen 40.0 05/18/17 07:27 98 22 95 Nasal Cannula 3.0 05/18/17 07:00 36.9 100 20 99/58 (71) 92 05/18/17 06:31 100 20 99/58 (71) 92 05/18/17 06:01 96 13 104/61 (74) 94 05/18/17 05:31 99 20 98/57 (66) 92 05/18/17 05:06 105 26 117/63 (74) 95 05/18/17 04:31 95 24 102/57 (74) 93 05/18/17 04:01 97 18 113/60 (86) 98 05/18/17 04:00 36.9 05/18/17 04:00 96 High Flow Oxygen 30 05/18/17 03:31 102 21 107/62 (74) 96 05/18/17 03:01 117 29 119/74 (82) 95 05/18/17 02:31 108 27 117/63 (87) 96 05/18/17 02:01 112 27 116/70 (87) 95 05/18/17 01:31 108 19 114/64 (88) 96 05/18/17 01:01 113 29 114/63 (79) 95 05/18/17 00:31 112 25 109/66 (78) 95 Physical Exam General Appearance: no apparent distress (Appears chronically ill and older than given age) Eyes: normal inspection, sclerae normal ENT: hearing grossly normal, pharynx normal Neck: trachea midline Respiratory/Chest: no respiratory distress, no accessory muscle use, + pertinent finding (High flow nasal cannula in place, diffuse coarse rhonchi and some crackles at the bases, with prominent upper airway sounds as well) Cardiovascular: no edema, + tachycardia (With regular rhythm), + systolic murmur (3/6 harsh at the RUSB) Abdomen: normal bowel sounds, non tender, soft Extremities: no calf tenderness, + pertinent finding (All toes on left foot are amputated, right great toe is amputated, a few small scabbed over lesions on the right third and fourth toes dorsally) Neurologic/Psychiatric: alert, normal mood/affect, oriented x 3 Skin: normal color, warm/dry, no rash Laboratory Results Last 24 Hours Test 05/18/17 01:01 05/18/17 02:06 05/18/17 03:03 05/18/17 04:10 Bedside Glucose (other) 394 mg/dl 352 mg/dl 305 mg/dl White Blood Count 13.15 K/uL Red Blood Count 2.88 M/uL Hemoglobin 9.8 g/dL Hematocrit 29.9 % Mean Corpuscular Volume 103.8 fL Mean Corpuscular Hemoglobin 34.0 pg Mean Corpuscular Hemoglobin Concent 32.8 g/dl Platelet Count 245 K/uL Mean Platelet Volume 9.8 fL Neutrophils (%) (Auto) 94.6 % Lymphocytes (%) (Auto) 3.3 % Monocytes (%) (Auto) 1.7 % Eosinophils (%) (Auto) 0.0 % Basophils (%) (Auto) 0.2 % Neutrophils # (Auto) 12.42 K/uL Lymphocytes # (Auto) 0.44 K/uL Monocytes # (Auto) 0.23 K/uL Eosinophils # (Auto) 0.00 K/uL Basophils # (Auto) 0.03 K/uL RDW Standard Deviation 54.9 fL RDW Coefficient of Variation 14.6 % Immature Granulocyte % (Auto) 0.2 % Immature Granulocyte # (Auto) 0.03 K/uL Venous Blood pH 7.40 Venous Blood Partial Pressure CO2 45 mmHg Venous Blood Partial Pressure O2 42 mmHg Venous Blood HCO3 27 mmol/L Venous Blood Oxygen Saturation 73.7 % Venous Blood Base Excess 2.0 mEq/L Sodium Level 135 mmol/L Potassium Level 3.5 mmol/L Chloride Level 96 mmol/L Carbon Dioxide Level 25 mmol/L Anion Gap 14.0 mmol/L Blood Urea Nitrogen 27 mg/dl Creatinine 6.30 mg/dl Est Creatinine Clear Calc Drug Dose 15.8 ml/min Estimated GFR () 10.9 Estimated GFR (Non- 9.4 BUN/Creatinine Ratio 4.3 Random Glucose 251 mg/dl Estimated Average Glucose 143 mg/dl Hemoglobin A1c 6.6 % Lactic Acid Level 5.7 mmol/L Calcium Level 8.5 mg/dl Phosphorus Level 3.1 mg/dl Magnesium Level 2.0 mg/dl Total Bilirubin 1.0 mg/dl Direct Bilirubin 0.3 mg/dl Aspartate Amino Transf (AST/SGOT) 31 U/L Alanine Aminotransferase (ALT/SGPT) 25 U/L Alkaline Phosphatase 134 U/L Creatine Kinase MB 24.0 ng/ml Troponin I 5.890 ng/ml Total Protein 6.9 gm/dl Albumin 2.7 gm/dl Test 05/18/17 04:12 05/18/17 04:13 05/18/17 05:03 05/18/17 06:16 Creatine Kinase MB Ratio Bedside Glucose (other) 257 mg/dl 225 mg/dl 183 mg/dl Test 05/18/17 07:54 05/18/17 09:59 05/18/17 10:21 05/18/17 10:36 Bedside Glucose 133 mg/dl 83 mg/dl 66 mg/dl Lactic Acid Level 2.3 mmol/L Test 05/18/17 11:12 05/18/17 11:52 05/18/17 12:12 05/18/17 12:32 Bedside Glucose (other) 120 mg/dl Bedside Glucose 139 mg/dl Creatine Kinase MB Ratio Creatine Kinase MB 39.5 ng/ml Troponin I 19.100 ng/ml Random Vancomycin Level 24.9 mcg/ml Test 05/18/17 13:10 05/18/17 14:05 05/18/17 15:17 05/18/17 15:58 Bedside Glucose 145 mg/dl 120 mg/dl 116 mg/dl 104 mg/dl Test 05/18/17 17:01 05/18/17 17:44 05/18/17 18:07 05/18/17 19:00 Bedside Glucose 97 mg/dl 121 mg/dl 123 mg/dl Prothrombin Time 11.0 SECONDS Prothromb Time International Ratio 1.0 Activated Partial Thromboplast Time 28.8 SECONDS Partial Thromboplastin Ratio 1.1 Test 05/18/17 20:03 05/18/17 22:05 05/18/17 22:11 05/19/17 00:06 Bedside Glucose 117 mg/dl 114 mg/dl 103 mg/dl Troponin I 14.100 ng/ml Assessment and Plan TSH was 1.11 this patient is a 51 yr old male with past medical history of type I diabetes mellitus with neuropathy, excessive dynamic airway collapse and chronic bronchiectasis, on CPAP nocturnally, PAD and right s/p post left and right foot toe amputation femoropopliteal graft, hypertension, chronic diastolic congestive heart failure, hypothyroidism, COPD and previous smoker, mood disorder and dyslipidemia. Patient was recently discharged from the hospital 10 days ago after being treated for HCAP, he received Zyvox and meropenem 5 days when he was in the hospital and was discharged on doxycycline and tapering dose of prednisone. Presented to the ED with septic shock and shortness of breath shortly after receiving hemodialysis. He was found to have acute on chronic hypoxic respiratory failure with tachypnea and increased oxygen requirement at 4 L, sepsis, pneumonia in the left lower lobe, and with septic shock and profound hypotension requiring admission to the intensive care unit for vasopressors. Acute on chronic hypoxic respiratory failure/sepsis and septic shock/HCAP LLL/ EDAC-improving, now off vasopressors, being treated with broad-spectrum antibiotics, improved dyspnea on high flow nasal cannula. Pro-calcitonin minimally elevated at 0.51. Leukocytosis has improved 17 down to 13 today. -Continue cefepime, Levaquin, vancomycin, appreciate ID consult -Appreciate inlayer silver management -Continue HF NC during the daytime and CPAP at nighttime -Appreciate pulmonology consultation -Continue bronchodilators -Is on IV steroids but these can be discontinued as per pulmonology recommendation to inlayer silver, random cortisol level was acceptable at 20.6 -Sputum culture ordered but never collected, blood cultures not collected on admission, would not be useful to collect at this time -Follow CBC Elevated troponin-suspect demand ischemia in the setting of profound hypotension. Troponin was normal initially and has since climbed to 19. He has no chest pain. Had the exact same presentation 2 weeks ago during hospitalization. ECGs with nonspecific ST changes in the inferior leads -Will commence heparin drip and trend troponin, check echocardiogram in the morning -Discontinue heparin drip if troponin is trending downward and no wall motion abnormalities on echocardiogram -Consult cardiology -Continue Plavix, statin -Resume metoprolol for tachycardia now that blood pressures are improved-we will do low-dose of 12.5 mg twice daily and increase to home dose as tolerated Chronic diastolic congestive heart failure-stable, volume status to be managed with dialysis -Holding home Lasix for now End-stage renal disease on hemodialysis every Tuesday, last dialyzed on 05/17/anemia of chronic renal disease -Appreciate nephrology consultation for inpatient dialysis management -Follow PRP -Continue binders -Receiving Procrit here Insulin-dependent diabetes mellitus-normally is on insulin pump at home but has been having great difficulty managing and has turned the basal rate off in the last week and is only doing boluses. -On insulin drip here and will continue this throughout hospitalization with pharmacy management Hypertension/dyslipidemia/Peripheral vascular disease-hypotension as above -Restarting metoprolol as above -Continue Plavix, statin Hypothyroidism-TSH was 1.11 in the last month -Continue levothyroxine home dose Peripheral neuropathy-stable -Continue gabapentin Mood disorder/normal grieving over loss of his 1 week ago -Consider psychiatric consult -Continue bupropion Prophylaxis-heparin drip Disposition-stable for transfer to telemetry
[2017-05-19] MEDS: DEXTROSE 50% 50 ML SYR IV PRN (01:05)
[2017-05-19 01:18] LABS: PTT PATIENT 50.5 SECONDS (21.0-31.0)
[2017-05-19] MEDS: ALBUT/IPRATROP 3MG/0.5MG NEB 3 ML VIAL INH PRN ×2 (04:00→04:36)
[2017-05-19 05:20] LABS: HEMATOCRIT 31.6 % (42-52); HEMOGLOBIN 10.4 g/dL (14.0-18.0); MEAN CELL VOLUME 101.9 fL (80-100); MEAN CORPUSCULAR HEMOGLOBIN 33.5 pg (25-34); MEAN CORPUSCULAR HGB CONC 32.9 g/dl (32-36); MEAN PLATELET VOLUME 9.7 fL (7.4-10.4); PLATELET COUNT 230 K/uL (130-400); RED CELL DISTRIBUTION WIDTH CV 14.4 % (11.5-14.5); RED CELL DISTRIBUTION WIDTH SD 53.7 fL (36.4-46.3); WHITE BLOOD COUNT 22.55 K/uL (4.8-10.8)
[2017-05-19] MEDS ORDERED: MoRPHine SULFATE 2 MG/ML CARP ONE (05:32)
[2017-05-19] MEDS ORDERED: MoRPHine SULFATE 2 MG/ML CARP IV STA (05:39)
[2017-05-19] MEDS ORDERED: LORAZEPAM 2 MG/ML 1 ML VIAL IV STA ×2 (05:51→06:07)
[2017-05-19] MEDS ORDERED: LORAZEPAM 2 MG/ML 1 ML VIAL ONE (05:52)
[2017-05-19 05:54] LABS: BASO ABS # 0.01 K/uL (0-0.2); IG# 0.06 K/uL (0.00-0.02); LYMPH ABS # 0.23 K/uL (1.2-3.4); MONO % 2.6 %; MONO ABS # 0.58 K/uL (0.11-0.59); NEUT % 96.1 %; NEUT ABS # 21.67 K/uL (1.4-6.5)
[2017-05-19] MEDS ORDERED: EPOETIN ALFA 10,000 UNITS/ML VIAL IV. SCH (06:00)
[2017-05-19] MEDS ORDERED: PARICALCITOL 5 MCG/ML VIAL (ZEMPLAR) IV. SCH (06:00)
[2017-05-19] MEDS ORDERED: HEPARIN SOD (PORCINE) 1000 UNIT/ML 10 ML VIAL IV SCH ×2 (06:00)
[2017-05-19 06:02] LABS: ALBUMIN 2.9 gm/dl (3.4-5.0); CALCIUM 8.6 mg/dl (8.5-10.1); CREATININE 8.09 mg/dl (0.60-1.40); POTASSIUM 3.6 mmol/L (3.5-5.1); TOTAL PROTEIN 7.3 gm/dl (6.4-8.2)
[2017-05-19] MEDS ORDERED: DexMEDEtomidine HCL IV 200 MCG in SODIUM CHLORIDE 0.9% 50ML 48 ML IV PRN (06:07)
[2017-05-19] MEDS ORDERED: METOPROLOL TARTRATE 1 MG/ML VIAL ONE (06:32)
--- NOTE | 2017-05-19 06:37 | Critical Care Progress Note ---
Critical Care Progress Note Date of Service May 19, 2017. Attending Dr. Brenda Cruz Gino Clark is a 51yo male who was transferred out of the ICU yesterday evening after being stabilized and off vasoactive medication since 6am. Over the night the pt asked to be taken off his CPAP and returned to hi-flow O2. Pt decompensated and was placed on Bipap. Pt repeated similiar behaviors from prior night. He was shouting out that he can not breath. Repeat CXR demonstrated increase in interstitial thickening in addition to small left and trace right pleural effusions with increasing bibasilar opacities in the setting of a ESRD on HD. Pt received (2) 1mg iv ativan doses as well as 2mg of IV Morphine. ABG demonstrated 7.223/65.1//27. Pt was transferred to the ICU for closer monitoring. The patient denies fever, dizziness, headache, muscle weakness, change in vision , sore throat, chest pain, palpitations, awareness of tachyarrhythmias, cough, nausea, vomiting, bloody stools, diarrhea, constipation, abdominal pain, other changes in urine or bowel habits. Objective Laboratory Data - as noted Physical Exam: General - Mild distress, anxious, repeating "I cant breath, I'm scared. I want the ventilator." Eyes - EOMI No icterus, gaze conjugate ENT - Mucosa dry, no lesions or candidiasis Neck - Supple, trachea midline, no masses or lymphadenopathy, no JVD or bruits Lungs - No paradoxical chest wall movement, very coarse with rhonchi throughout , no wheezes or rales Heart - Reg rate and rhythm, Murmur present without rubs, clicks, or gallops appreciated Abdomen - BS present, no bruits noted, tympanic to percussion, soft, nontender , nondistended, no organomegaly Extremities - Edema present, pedal pulses intact, multiple missing toes, skin warm but discolored bilaterally Neuro - A&O x 3 Strength extremities equal and appropriate bilaterally CN: EOMI, no facial asymmetry, uvula/tongue midline Assessment & Plan (1) Shortness of breath (2) CHF (congestive heart failure) (3) Pneumonia (4) Chronic renal failure (5) Insulin dependent diabetes mellitus (6) ESRD (end stage renal disease) (7) Tracheomalacia (8) HCAP (healthcare-associated pneumonia) (9) Septic shock (10) Productive cough (11) Hypothyroidism (12) Bipolar disorder (13) Chronic obstructive lung disease PLAN: Resp: * Shortness of breath * Continue CPAP with pressure support of 13 * Repeat AB.187/73.5/89/27.8 * Severe PNA: HAP * Continue Cefepime, Vanco, and Levaquin at this time * Recent Hospitalization for PNA on Zyvox and Meropenem and d/c on Doxy * Monitor Troughs and QTc * Patient unable to produce sputum specimen * Urine Legionella: Anuric, uncollected * Bronchodilators in place * Continue home regimen * Dr. stone following * Goal O2 Saturations >94% Neuro/PSYCH * Continue home medications: Gabapentin, Sensipar, and Wellbutrin * Per Dr. Gutierrez: Concern regarding capacity to consent. * Patient recently lost who is primary caregiver * This could represent grief reaction, adjustment disorder, major depressive disorder * Would benefit from a home safety eval as well as multi specialty care review to ensure patient has adequate follow-up and family appreciates medical decisions as well as refuses medical care CV: * Tachycardia: HR running 150's * 5mg of Metoprolol * Pt anxiety decreasing, will monitor * Septic Shock 2/2 HAP * Hypotension resolved * Troponin elevated, similar to previous admission, possibly due to demand ischemia 2/2 hypotension. * Currently on heparin infusion * Cardiology consult in place * Last ECHO: EF 60% Grade 1 diastolic dysfunction * Continue home medications including: * Norvasc, Lipitor, Lopressor * Monitor on telemetry Fluids/Renal: * ESRD on HD, HD planned for today * Minimize fluids; Concentrate where possible * Pt positive 1.3L ID: * Continue Abx: Cefepime, Vanco, and Levaquin (first day of tx: 05/17) * Septic Shock: Hypotension resolved * WBC elevated to 22.55, trend * Afebrile to date GI/Nutrition: * Renal diet as tolerated Heme: * DVT prophylaxis in place: Heparin infusion in place currently * Continue Pts Plavix * H&H: 10.4/31.6 improved from prior days labs Endocrine: * DM1 with hyperglycemia * Insulin infusion * Does have insulin pump; however, pt had it off when he came to the hospital * Hypothyroidism * Continue Synthroid 112mcg Critical Care Time: 45 Minutes; This time is exclusive of all separately billable procedures. Thank you for involving us in the care of this patient. Please refer to Dr. Srikanth Gutierrez's addendum for further recommendations. I have personally evaluated and examined this patient. I agree with assessment and plan of Donna Randhawa PA-C. During my additional an independent evaluation and management, the patient required titration of his vasoactive medication. I also completed a bronchoscopy. I had a family meeting with the patient's father, brother, son who is still 17, regarding prognosis and goals of care. The particularly nuance discussion about the patient's decisional capacity. The father stated the patient has not appreciated the consequences of his decisions for "a very long time". Delving further in depth it has appears the patient has not had the ability to rationalize his decisions and as far as he has been unable to effectively compare treatment options and consequences, and does not give indication of a value structure to his decisions. During my evaluation this morning, as well as my concern on my initial evaluation in the emergency department, I question the ability of insight into his lung disease pathology. At no point during my evaluations has the patient been able to "teach back" the information regarding his clinical condition. I do agree that the patient has remained alert and oriented through these conversations. Both the patient's brother and son are also in agreement with the opinion of the father. Additionally we discussed goals of care should the patient undergo a cardiac arrest. He has end-stage renal disease and has been on dialysis for 10 years. He has severe profound dynamic airway collapse, as a consequence of his anatomic lung disease as well as severe COPD. He has moderate aortic stenosis. He is at risk for multidrug-resistant infections. It is generally accepted that successful cardiac resuscitation in event of cardiac arrest is approximately 10%. In a patient with his multiple organ system failures 10% is unlikely a reasonable probability. I explained the procedures of CPR with the patient's father, brother, son and likelihood of additional complications should we be successful in resuscitating the patient should he undergo a cardiac arrest. When put in that framework all family members are in agreement that he would in fact not want to undergo heroic measures in event of cardiac arrest. Therefore the patient's CODE STATUS will be DO NOT RESUSCITATE in event of cardiac arrest. 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 The patient's son is not yet of legal age and his father is willing to accept these responsibilities. I have discussed the risks and benefits of arterial line placement with the father and he agrees with placement of an arterial line should further invasive monitoring be required. I discussed his care and coordination with Dr. Ontiveros of cardiology, Dr. Kolb of infectious disease, Dr. stone of pulmonology, and Dr. Medina of nephrology. I have personally spent 120 minutes of critical care time in the direct management of this patient. This is a life/limb threatening event. This includes time spent evaluating patient, direct bedside care, chart review, placing orders, interpretation of diagnostic studies, discussion with consultants, patient, and/or family members regarding treatment decisions, as well as other required patient management activities. This time is exclusive of all separately billable procedures, and teaching time and separate from and in addition to any other critical care service time. Consults & Procedures Consultants: Cardiology: Marv Mental Health: Tian Pulmonology: Suzy Nephrology: Ruslan Data Medications: Current Inpatient Medications Medications (Trade) Dose Ordered Sig/Etta Route Start Time Stop Time Status Last Admin Dose Admin Miscellaneous Information (Consult) 1 ea UD PRN N/A 05/17/17 19:00 06/16/17 18:59 Atorvastatin Calcium (Lipitor Tab) 40 mg HS PO 05/17/17 21:00 06/16/17 20:59 05/18/17 21:09 40 MG Bupropion HCl (Wellbutrin-Sr Tab) 200 mg QPM PO 05/17/17 21:00 06/16/17 20:59 05/18/17 21:11 200 MG Clopidogrel Bisulfate (plAVix TAB) 75 mg Q2D@0900 PO 05/18/17 09:00 06/17/17 08:59 05/18/17 07:43 75 MG Gabapentin (Neurontin Cap) 100 mg BID PO 05/17/17 21:00 06/16/17 20:59 05/18/17 21:10 100 MG Albuterol/ Ipratropium (Duoneb) 3 ml QID PRN INH 05/17/17 20:15 06/16/17 20:14 05/19/17 04:00 3 ML Levothyroxine Sodium (Synthroid Tab) 112 mcg DAILYBB PO 05/18/17 06:00 06/17/17 05:59 05/18/17 06:37 112 MCG Miscellaneous Information (Order Awaiting Action) 1 ea QS N/A 05/18/17 00:00 06/17/17 00:00 Sevelamer HCl (Renagel Tab) 1,600 mg TIDM PO 05/18/17 07:15 06/17/17 07:14 05/18/17 15:56 1,600 MG Lactobacillus Acidophilus (Floranex Tab) 4 tab TIDM PO 05/18/17 07:15 06/17/17 07:59 05/18/17 15:56 4 TAB Acetaminophen (Tylenol Tab) 650 mg Q4H PRN PO 05/17/17 20:15 06/16/17 20:14 Levalbuterol (Xopenex 1.25MG/ 0.5ML Neb) 1.25 mg Q8R INH 05/18/17 00:00 06/17/17 00:00 05/18/17 23:28 1.25 MG Miscellaneous Information (Icu Protocol For Hyperglycemia) 1 ea PRN PRN N/A 05/17/17 20:15 05/19/17 20:14 Glucose (Glucose 40% Gel) 15-30 GRAMS 15 GRAMS... UD PRN PO 05/17/17 20:15 06/16/17 20:14 Glucose (Glucose Chew Tab) 4-8 Tablets 4 Tabl... UD PRN PO 05/17/17 20:15 06/16/17 20:14 Dextrose (Dextrose 50% 50ML Syringe) 25-50ML OF 50% DW IV FOR... UD PRN IV 05/17/17 20:15 06/16/17 20:14 05/19/17 01:05 25 ML Glucagon (Glucagon Inj) 1 mg UD PRN SQ 05/17/17 20:15 06/16/17 20:14 Miscellaneous Information (Consult Glycemic Management Pharmacy) 1 ea UD PRN N/A 05/17/17 20:52 06/16/17 20:51 Levofloxacin 500 mg/Prmx 100 ml @ 100 mls/hr Q48H IV 05/19/17 20:00 05/24/17 19:59 Insulin Human Regular 250 units/ Sodium Chloride 252.5 ml @ 0 mls/hr Q24H IV 05/17/17 22:45 06/16/17 22:44 05/17/17 22:54 3.4 MLS/HR Insulin Aspart (novoLOG ASPART) SLIDING SCALE PCHS SC 05/18/17 08:00 06/17/17 07:59 05/18/17 17:14 5 UNITS Miscellaneous Information (Pending Order) 1 ea QS N/A 05/18/17 16:00 06/17/17 15:59 Cefepime HCl 1000 mg/Syringe 11 ml @ 5.5 mls/min DAILY@2000 IV 05/18/17 20:00 05/24/17 19:59 05/18/17 19:39 5.5 MLS/MIN Heparin Sodium (Porcine) (Heparin Iv Bolus) 2,000 unit TODAY@0600 IV 05/19/17 06:00 05/19/17 18:00 Heparin Sodium (Porcine) (Heparin Iv Bolus) 500 unit Q1H IV 05/19/17 06:00 05/19/17 08:01 Epoetin Diaz (Procrit Inj) 10,000 units TODAY@0600 IV. 05/19/17 06:00 05/19/17 18:00 Paricalcitol (Zemplar Inj) 3 mcg ONE IV. 05/19/17 06:00 05/19/17 18:00 Metoprolol Tartrate (Lopressor Tab) 12.5 mg BID PO 05/18/17 21:00 06/17/17 20:59 05/18/17 21:10 12.5 MG Heparin Sodium/ Dextrose 500 ml @ 28 mls/hr [id number] PRN IV 05/18/17 18:15 06/17/17 18:14 05/18/17 18:23 28 MLS/HR Dexmedetomidine HCl 200 mcg/ Sodium Chloride 50 ml @ 0 mls/hr Q0M PRN IV 05/19/17 06:07 05/23/17 06:06 Vital Signs: Date Time Temp Pulse Resp B/P (MAP) Pulse Ox O2 Delivery O2 Flow Rate FiO2 05/19/17 04:00 High Flow Oxygen 50.0 50 05/19/17 04:00 99 24 90 Nasal Cannula 50.0 50 05/19/17 00:00 36.7 95 26 129/86 (100) 94 CPAP 5.0 05/19/17 00:00 94 CPAP 5.0 05/18/17 23:29 91 90 5.0 05/18/17 23:28 91 18 90 BiPAP/CPAP 5.0 05/18/17 22:25 105 95 5.0 05/18/17 20:02 37.2 101 23 120/70 (87) 94 High Flow Oxygen 40.0 30 05/18/17 20:00 94 High Flow Oxygen 40.0 30 05/18/17 18:00 105 40 127/79 (95) 94 High Flow Oxygen 40.0 05/18/17 16:00 91 High Flow Oxygen 40.0 05/18/17 16:00 36.7 111 22 123/71 (88) 91 High Flow Oxygen 40.0 05/18/17 15:05 108 22 95 Nasal Cannula 3.0 05/18/17 14:00 108 22 127/72 (90) 93 High Flow Oxygen 40.0 05/18/17 12:00 109 30 106/59 (75) 92 High Flow Oxygen 40.0 05/18/17 12:00 High Flow Oxygen 40.0 05/18/17 10:00 100 22 113/64 (80) 94 High Flow Oxygen 40.0 05/18/17 08:00 92 High Flow Oxygen 40.0 05/18/17 08:00 High Flow Oxygen 30 05/18/17 08:00 36.8 96 22 111/61 (78) 92 High Flow Oxygen 40.0 05/18/17 07:27 98 22 95 Nasal Cannula 3.0 05/18/17 07:00 36.9 100 20 99/58 (71) 92 05/18/17 06:31 100 20 99/58 (71) 92 Laboratory Results: Last 24 Hours Test 05/18/17 07:54 05/18/17 09:59 05/18/17 10:21 05/18/17 10:36 Bedside Glucose 133 mg/dl 83 mg/dl 66 mg/dl Lactic Acid Level 2.3 mmol/L Test 05/18/17 11:12 05/18/17 11:52 05/18/17 12:12 05/18/17 12:32 Bedside Glucose (other) 120 mg/dl Bedside Glucose 139 mg/dl Creatine Kinase MB Ratio Creatine Kinase MB 39.5 ng/ml Troponin I 19.100 ng/ml Random Vancomycin Level 24.9 mcg/ml Test 05/18/17 13:10 05/18/17 14:05 05/18/17 15:17 05/18/17 15:58 Bedside Glucose 145 mg/dl 120 mg/dl 116 mg/dl 104 mg/dl Test 05/18/17 17:01 05/18/17 17:44 05/18/17 18:07 05/18/17 19:00 Bedside Glucose 97 mg/dl 121 mg/dl 123 mg/dl Prothrombin Time 11.0 SECONDS Prothromb Time International Ratio 1.0 Activated Partial Thromboplast Time 28.8 SECONDS Partial Thromboplastin Ratio 1.1 Test 05/18/17 20:03 05/18/17 22:05 05/18/17 22:11 05/19/17 00:06 Bedside Glucose 117 mg/dl 114 mg/dl 103 mg/dl Troponin I 14.100 ng/ml Test 05/19/17 00:44 05/19/17 00:54 05/19/17 01:14 05/19/17 02:12 Activated Partial Thromboplast Time 50.5 SECONDS Partial Thromboplastin Ratio 1.9 Bedside Glucose 78 mg/dl 119 mg/dl 105 mg/dl Test 05/19/17 03:12 05/19/17 04:07 05/19/17 05:07 05/19/17 05:09 Bedside Glucose 119 mg/dl 118 mg/dl 148 mg/dl White Blood Count 22.55 K/uL Red Blood Count 3.10 M/uL Hemoglobin 10.4 g/dL Hematocrit 31.6 % Mean Corpuscular Volume 101.9 fL Mean Corpuscular Hemoglobin 33.5 pg Mean Corpuscular Hemoglobin Concent 32.9 g/dl Platelet Count 230 K/uL Mean Platelet Volume 9.7 fL Neutrophils (%) (Auto) 96.1 % Lymphocytes (%) (Auto) 1.0 % Monocytes (%) (Auto) 2.6 % Eosinophils (%) (Auto) 0.0 % Basophils (%) (Auto) 0.0 % Neutrophils # (Auto) 21.67 K/uL Lymphocytes # (Auto) 0.23 K/uL Monocytes # (Auto) 0.58 K/uL Eosinophils # (Auto) 0.00 K/uL Basophils # (Auto) 0.01 K/uL RDW Standard Deviation 53.7 fL RDW Coefficient of Variation 14.4 % Immature Granulocyte % (Auto) 0.3 % Immature Granulocyte # (Auto) 0.06 K/uL Sodium Level 135 mmol/L Potassium Level 3.6 mmol/L Chloride Level 97 mmol/L Carbon Dioxide Level 25 mmol/L Anion Gap 13.0 mmol/L Blood Urea Nitrogen 42 mg/dl Creatinine 8.09 mg/dl Est Creatinine Clear Calc Drug Dose 11.2 ml/min Estimated GFR () 8.0 Estimated GFR (Non- 6.9 BUN/Creatinine Ratio 5.2 Random Glucose 156 mg/dl Calcium Level 8.6 mg/dl Total Bilirubin 1.0 mg/dl Direct Bilirubin 0.2 mg/dl Aspartate Amino Transf (AST/SGOT) 51 U/L Alanine Aminotransferase (ALT/SGPT) 26 U/L Alkaline Phosphatase 136 U/L Troponin I 11.700 ng/ml Total Protein 7.3 gm/dl Albumin 2.9 gm/dl Random Vancomycin Level 23.2 mcg/ml Test 05/19/17 05:50 Blood Gas Sample Site R Brachial Bedside Blood Gas pH (LAB) 7.22 Bedside Blood Gas pCO2 (LAB) 65 mmHg Bedside Blood Gas pO2 (LAB) 55 mmHg Bedside Blood Gas HCO3 (LAB) 27 meq/L Bedside Blood Gas Total CO2 29 mEq/l Bedside Blood Gas Base Excess (LAB) -1.0 meq/L Bedside Blood Gas O2 Saturation 82.0 % Carl Test NA Oxygen Delivery Device BIPAP Bedside Oxygen Rate (breaths/min) 34 Bedside FiO2 0 % Blood Gas IPAP 14
[2017-05-19] MEDS ORDERED: METOPROLOL TARTRATE 1 MG/ML VIAL IV ONE (06:45)
--- NOTE | 2017-05-19 06:46 | DIAGNOSTIC IMAGING REPORT ---
CHEST ONE VIEW PORTABLE CLINICAL HISTORY: change in breathing status decreased o2 levels COMPARISON STUDY: Chest radiograph May 18, 2017. FINDINGS: Right internal jugular central line is in place. Mild cardiomegaly is unchanged. There is no pneumothorax. Small left and trace right pleural effusions are noted. There are associated bibasilar opacities. These have increased. Interstitial thickening has increased. IMPRESSION: 1. Increase in interstitial thickening which may reflect pulmonary edema or an infectious process. 2. Small left and trace right pleural effusions with increasing bibasilar opacities. Electronically signed by: Nav Rausch M.D. 05/19/2017 6:45 AM Dictated Date/Time: 05/19/2017 6:44 AM
[2017-05-19] MEDS: LEVALBUTEROL 1.25MG/0.5ML NEB INH SCH (07:00)
[2017-05-19] MEDS ORDERED: RAPID SEQUENCE INDUCTION BAG ONE (07:05)
[2017-05-19] MEDS ORDERED: VECURONIUM BROMIDE 10 MG VIAL IV PRN (07:15)
--- NOTE | 2017-05-19 07:41 | DIAGNOSTIC IMAGING REPORT ---
CHEST ONE VIEW PORTABLE CLINICAL HISTORY: ett placement tube position COMPARISON STUDY: 05/19/2017 FINDINGS: Placement of a nasogastric tube within the stomach. Endotracheal tube positioned 7 cm above the bj. Somewhat progressive left lower lobe infiltrative and consolidative change. Unchanging right midlung and right basilar infiltrative change. Potential early consolidative change right midlung. Central catheter remains in the superior vena cava. IMPRESSION: 1. Endotracheal tube 7 cm above the bj. 2. Nasogastric tube within the stomach. 3. Mildly progressive bilateral parenchymal infiltrates 4. Slightly progressive consolidative change left base. The above report was generated using voice recognition software. It may contain grammatical, syntax or spelling errors. Electronically signed by: Clive Reilly M.D. 05/19/2017 7:40 AM Dictated Date/Time: 05/19/2017 7:37 AM
[2017-05-19] MEDS: INSULIN ASPART 100 UNITS/ML 3 ML PEN SC SCH ×4 (08:00→20:43)
[2017-05-19] MEDS: BREO ELLIPTA: ORDER AWAITING ACTION SCH ×2 (08:00)
[2017-05-19] MEDS ORDERED: OPTIRAY 320 IV PRN (08:15)
--- NOTE | 2017-05-19 08:18 | DIAGNOSTIC IMAGING REPORT ---
CT OF THE HEAD WITHOUT CONTRAST CLINICAL HISTORY: confusion, repetitive speech, SOB h/o ESRD on HD COMPARISON STUDY: Head CT May 09, 2017. TECHNIQUE: Helical axial images of the head were obtained without IV contrast. Automated exposure control was utilized for the study. A dose lowering technique was utilized adhering to the principles of ALARA. FINDINGS: Exam is mildly compromised by motion artifact. No acute intracranial hemorrhage, midline shift or mass effect is present. Bilateral cerebellar calcification is chronic. Ventricular system is normal. Basilar cisterns are patent. There are no extra-axial collections. There are no findings to suggest acute dural sinus thrombosis or acute territorial infarct. There are small air-fluid levels within the bilateral maxillary sinuses. Increased sclerosis of visualized skeletal structures is nonspecific but may be related to chronic renal failure. IMPRESSION: 1. No acute intracranial findings. 2. Study mildly compromised by motion artifact. 2. Bilateral maxillary sinus air-fluid levels which may be related to intubation or reflect acute sinusitis. Electronically signed by: Nav Rausch M.D. 05/19/2017 8:17 AM Dictated Date/Time: 05/19/2017 8:13 AM
--- NOTE | 2017-05-19 08:25 | DIAGNOSTIC IMAGING REPORT ---
(CHEST FOR PE) ANGIO WITH CT DOSE: 1913.24 mGy.cm HISTORY: Hypoxia. Septic shock. TECHNIQUE: Multiaxial CT images of the chest were performed following the intravenous administration of contrast to evaluate the pulmonary arteries. Maximal intensity projection images were also obtained. A dose lowering technique was utilized adhering to the principles of ALARA. COMPARISON STUDY: 04/30/2017 FINDINGS: Thoracic aorta shows minimal atherosclerotic change. It is negative for aneurysm or dissection. Pulmonary vasculature enhances appropriately. There are no significant pulmonary emboli or filling defects. There is a nasogastric tube within the proximal stomach. There is an endotracheal tube 6 cm above the bj. There are bilateral consolidative infiltrative changes. These are progressive compared to the prior exam. There are small associated bilateral pleural effusions. Mild nonspecific increase in bone density, associated with several defects of the vertebral endplates. These have been described previously and potentially relate to metabolic bone disease versus renal osteodystrophy. IMPRESSION: 1. Study is negative for pulmonary embolus. 2. Extensive bilateral consolidative infiltrative change. 3. Small bilateral pleural effusions. 4. Endotracheal tube 6 cm above the bj. 5. Nasogastric tube within the stomach. 6. Bony changes previously described is suggestive of metabolic bone disease or renal osteodystrophy. The above report was generated using voice recognition software. It may contain grammatical, syntax or spelling errors. Electronically signed by: Clive Reilly M.D. 05/19/2017 8:23 AM Dictated Date/Time: 05/19/2017 8:12 AM
[2017-05-19] MEDS ORDERED: MIDAZOLAM 125MG/250ML D5W 250 ML IV PRN (08:30)
[2017-05-19] MEDS ORDERED: FENTANYL CITRATE 1250MCG/250ML NSS ONE (08:38)
[2017-05-19] MEDS ORDERED: FENTANYL CITRATE INJ 50 MCG/1 ML 2 ML VIAL IV ONE (08:45)
[2017-05-19] MEDS: SEVELAMER HYDROCH 800 MG TAB PO SCH ×3 (08:52→16:30)
[2017-05-19] MEDS: LACTOBACILLUS ACIDOPHILUS (FLORANEX) TAB PO SCH ×3 (08:52→16:30)
[2017-05-19] MEDS: GABAPENTIN 100 MG CAP PO SCH ×2 (09:00→20:42)
[2017-05-19] MEDS: VASOPRESSIN INJ 50 UNITS in SODIUM CHLORIDE 0.9% 500ML 500 ML IV SCH (09:45)
[2017-05-19] MEDS: NOREPINEPHRINE BIT INJ 8 MG in DEXTROSE 5% 500ML 500 ML IV PRN ×2 (09:49→15:49)
--- NOTE | 2017-05-19 09:49 | Cardiology Consultation ---
Cardiology Consultation Date of Consultation: May 19, 2017. Requesting Physician: Dr. Guerrier Reason for Consultation: Elevated troponin Pt evaluation today including: conversation w/ family, physical exam, lab review, review of studies, review of inpatient medication list, conversation w/ attending History of Present Illness This is a 51-year-old gentleman with a history of diabetes, end-stage renal disease on dialysis and peripheral vascular disease. He presented with pulseless electrical activity in March 2014 along with elevated troponins, echocardiography demonstrated normal left ventricular function. He did have troponin elevation but was not felt to have an acute myocardial infarction although coronary artery disease was suspected. He received TPA for suspected pulmonary embolism (although it sounds like the specific diagnosis was not made) . He improved subsequently. Echocardiography on July 29, 2015 showed normal left ventricular size and function, moderate left ventricular hypertrophy, diastolic dysfunction and moderate aortic stenosis. He was then admitted on April 29, 2017 with hypotension and probable sepsis, he developed significant troponin elevation however once again it did not appear to be an acute coronary event and echocardiography showed left ventricular hypertrophy with diastolic dysfunction, no significant wall motion abnormalities and moderate aortic stenosis. He was discharged on May 06, 2017 however presented on May 17, 2017 to the emergency room with worsening shortness of breath and a cough. He had received dialysis that day but became short of breath after being brought home. He was admitted with sepsis including hypotension, his troponin once again elevated and he was treated with broad-spectrum antibiotics, he recovered well enough to be transferred out of the ICU however quickly decompensated and required BiPAP due to shortness of breath and then intubation this morning. He is currently intubated in the intensive care unit. His troponin peaked at 19.1 on May 18, 2017, this morning it was down to 11.7. Electrocardiography does not show an acute infarct pattern. I cannot talk to him as he is intubated and sedated. Past Medical/Surgical History (1) Diabetes mellitus (2) Benign hypertension (3) Chronic obstructive lung disease (4) Bipolar disorder (5) Anemia (6) Chronic kidney disease with end stage renal failure on dialysis (7) Hyperparathyroidism due to renal insufficiency (8) Hypothyroidism Family History FH: heart disease Social History Smoking Status: Former Smoker History of Alcohol Use: No Review of Systems Respiratory: + cough, + sputum, + wheezing Cannot be obtained due to intubation and sedation Allergies Coded Allergies: Codeine (Verified Allergy, Intermediate, NAUSEA AND VOMITING, 05/07/17) QUESTIONABLE ALLERGY, STILL QUESTIONABLE BUT MD Villafuerte/David SHONDA WITH COD 02/20/17 Tigecycline (Verified Allergy, Mild, ?RASH, 05/07/17) Clindamycin (Verified Allergy, Unknown, Unknown, 05/07/17) Penicillins (Verified Allergy, Unknown, PT HAS HAD MEFOXIN W/OUT A PROBLEM , 05/07/17) HAD MEFOXIN W/O PROBLEM Ciprofloxacin (Verified Adverse Reaction, Intermediate, nausea,vomiting, generalized weakness, 05/07/17) Morphine (Verified Adverse Reaction, Intermediate, TREMBLING,NAUSEA AND VOMITING, 05/07/17) Opioid Analgesics (Verified Adverse Reaction, Intermediate, "ALL RX PAIN MEDS CAUSE SEVERE NAUSEA", 05/07/17) Levofloxacin (Verified Adverse Reaction, Mild, Cipro/Levaquin (IV & po) = N & V, 05/07/17) Oxycodone (Verified Adverse Reaction, Unknown, N/V/D, 05/07/17) SPOKE WITH PATIENT ON 07/29/15, DOES NOT REMEMBER ANY DIFFICULTY BREATHING JUST HIT HIM HARD. Medications Current Inpatient Medications Medications (Trade) Dose Ordered Sig/Etta Route Start Time Stop Time Status Last Admin Dose Admin Miscellaneous Information (Consult) 1 ea UD PRN N/A 05/17/17 19:00 06/16/17 18:59 Atorvastatin Calcium (Lipitor Tab) 40 mg HS PO 05/17/17 21:00 06/16/17 20:59 05/18/17 21:09 40 MG Bupropion HCl (Wellbutrin-Sr Tab) 200 mg QPM PO 05/17/17 21:00 06/16/17 20:59 05/18/17 21:11 200 MG Clopidogrel Bisulfate (plAVix TAB) 75 mg Q2D@0900 PO 05/18/17 09:00 06/17/17 08:59 05/18/17 07:43 75 MG Gabapentin (Neurontin Cap) 100 mg BID PO 05/17/17 21:00 06/16/17 20:59 05/18/17 21:10 100 MG Albuterol/ Ipratropium (Duoneb) 3 ml QID PRN INH 05/17/17 20:15 06/16/17 20:14 05/19/17 04:00 3 ML Levothyroxine Sodium (Synthroid Tab) 112 mcg DAILYBB PO 05/18/17 06:00 06/17/17 05:59 05/18/17 06:37 112 MCG Miscellaneous Information (Order Awaiting Action) 1 ea QS N/A 05/18/17 00:00 06/17/17 00:00 Sevelamer HCl (Renagel Tab) 1,600 mg TIDM PO 05/18/17 07:15 06/17/17 07:14 05/18/17 15:56 1,600 MG Lactobacillus Acidophilus (Floranex Tab) 4 tab TIDM PO 05/18/17 07:15 06/17/17 07:59 05/18/17 15:56 4 TAB Acetaminophen (Tylenol Tab) 650 mg Q4H PRN PO 05/17/17 20:15 06/16/17 20:14 Levalbuterol (Xopenex 1.25MG/ 0.5ML Neb) 1.25 mg Q8R INH 05/18/17 00:00 06/17/17 00:00 05/18/17 23:28 1.25 MG Miscellaneous Information (Icu Protocol For Hyperglycemia) 1 ea PRN PRN N/A 05/17/17 20:15 05/19/17 20:14 Glucose (Glucose 40% Gel) 15-30 GRAMS 15 GRAMS... UD PRN PO 05/17/17 20:15 06/16/17 20:14 Glucose (Glucose Chew Tab) 4-8 Tablets 4 Tabl... UD PRN PO 05/17/17 20:15 06/16/17 20:14 Dextrose (Dextrose 50% 50ML Syringe) 25-50ML OF 50% DW IV FOR... UD PRN IV 05/17/17 20:15 06/16/17 20:14 05/19/17 01:05 25 ML Glucagon (Glucagon Inj) 1 mg UD PRN SQ 05/17/17 20:15 06/16/17 20:14 Miscellaneous Information (Consult Glycemic Management Pharmacy) 1 ea UD PRN N/A 05/17/17 20:52 06/16/17 20:51 Levofloxacin 500 mg/Prmx 100 ml @ 100 mls/hr Q48H IV 05/19/17 20:00 05/24/17 19:59 Norepinephrine Bitartrate 8 mg/ Dextrose 508 ml @ 0 mls/hr Q0M PRN IV 05/17/17 20:31 06/16/17 23:59 05/17/17 21:41 34.5 MLS/HR Insulin Human Regular 250 units/ Sodium Chloride 252.5 ml @ 0 mls/hr Q24H IV 05/17/17 22:45 06/16/17 22:44 05/17/17 22:54 3.4 MLS/HR Insulin Aspart (novoLOG ASPART) SLIDING SCALE PCHS SC 05/18/17 08:00 06/17/17 07:59 05/18/17 17:14 5 UNITS Miscellaneous Information (Pending Order) 1 ea QS N/A 05/18/17 16:00 06/17/17 15:59 05/19/17 08:00 1 EA Cefepime HCl 1000 mg/Syringe 11 ml @ 5.5 mls/min DAILY@2000 IV 05/18/17 20:00 05/24/17 19:59 05/18/17 19:39 5.5 MLS/MIN Heparin Sodium (Porcine) (Heparin Iv Bolus) 2,000 unit TODAY@0600 IV 05/19/17 06:00 05/19/17 18:00 Epoetin Diaz (Procrit Inj) 10,000 units TODAY@0600 IV. 05/19/17 06:00 05/19/17 18:00 Paricalcitol (Zemplar Inj) 3 mcg ONE IV. 05/19/17 06:00 05/19/17 18:00 Metoprolol Tartrate (Lopressor Tab) 12.5 mg BID PO 05/18/17 21:00 06/17/17 20:59 05/18/17 21:10 12.5 MG Heparin Sodium/ Dextrose 500 ml @ 28 mls/hr [id number] PRN IV 05/18/17 18:15 06/17/17 18:14 05/18/17 18:23 28 MLS/HR Midazolam HCl (Versed Inj) 2 mg Q2H PRN IV 05/19/17 07:15 06/18/17 07:14 Fentanyl Citrate (Fentanyl Inj) 50 mcg Q2H PRN IV 05/19/17 07:15 06/02/17 07:14 Vecuronium Kincheloe (Vecuronium Kincheloe Inj) 8 mg ONE PRN IV 05/19/17 07:15 Ioversol (Optiray 320) 100 ml UD PRN IV 05/19/17 08:15 05/23/17 08:14 Physical Exam Vital Signs Past 12 Hours Date Time Temp Pulse Resp B/P (MAP) Pulse Ox O2 Delivery O2 Flow Rate FiO2 05/19/17 07:25 100 05/19/17 06:40 156 148/86 05/19/17 06:22 92 100 05/19/17 04:00 36.7 109 37 148/94 (112) 90 High Flow Oxygen 50.0 50 CPAP 05/19/17 04:00 High Flow Oxygen 50.0 50 05/19/17 04:00 99 24 90 Nasal Cannula 50.0 50 05/19/17 00:00 36.7 95 26 129/86 (100) 94 CPAP 5.0 05/19/17 00:00 94 CPAP 5.0 05/18/17 23:29 91 90 5.0 05/18/17 23:28 91 18 90 BiPAP/CPAP 5.0 05/18/17 22:25 105 95 5.0 Constitutional: Level of Distress: NAD, chronically ill Head: normocephalic Eyes: Pupils: PERRLA ENMT: normal ENT inspection Neck: supple, no masses Lungs: Respiratory effort: good air movement Auscultation: no wheezing, rales/crackles on the left, rales/crackles on the right, pertinent finding (Intubated) Cardiovascular: Heart Auscultation: RRR, no rubs, no gallops, III/ SKIP ([place] throughout the precordium, loudest at base) Peripheral Pulses: Bruits: none appreciated Abdomen: Bowel Sounds: normal Inspection & Palpation: soft, no tenderness, guarding & rebound, no masses Musculoskeletal: normal strength (5/5 throughout) Extremities: no edema Neurologic: Cranial Nerves: grossly intact Sensation: grossly intact Data Laboratory Results: Last 24 Hours Test 05/18/17 09:59 05/18/17 10:21 05/18/17 10:36 05/18/17 11:12 Bedside Glucose 83 mg/dl 66 mg/dl Lactic Acid Level 2.3 mmol/L Bedside Glucose (other) 120 mg/dl Test 05/18/17 11:52 05/18/17 12:12 05/18/17 12:32 05/18/17 13:10 Bedside Glucose 139 mg/dl 145 mg/dl Creatine Kinase MB Ratio Creatine Kinase MB 39.5 ng/ml Troponin I 19.100 ng/ml Random Vancomycin Level 24.9 mcg/ml Test 05/18/17 14:05 05/18/17 15:17 05/18/17 15:58 05/18/17 17:01 Bedside Glucose 120 mg/dl 116 mg/dl 104 mg/dl 97 mg/dl Test 05/18/17 17:44 05/18/17 18:07 05/18/17 19:00 05/18/17 20:03 Prothrombin Time 11.0 SECONDS Prothromb Time International Ratio 1.0 Activated Partial Thromboplast Time 28.8 SECONDS Partial Thromboplastin Ratio 1.1 Bedside Glucose 121 mg/dl 123 mg/dl 117 mg/dl Test 05/18/17 22:05 05/18/17 22:11 05/19/17 00:06 05/19/17 00:44 Troponin I 14.100 ng/ml Bedside Glucose 114 mg/dl 103 mg/dl Activated Partial Thromboplast Time 50.5 SECONDS Partial Thromboplastin Ratio 1.9 Test 05/19/17 00:54 05/19/17 01:14 05/19/17 02:12 05/19/17 03:12 Bedside Glucose 78 mg/dl 119 mg/dl 105 mg/dl 119 mg/dl Test 05/19/17 04:07 05/19/17 05:07 05/19/17 05:09 05/19/17 05:50 Bedside Glucose 118 mg/dl 148 mg/dl White Blood Count 22.55 K/uL Red Blood Count 3.10 M/uL Hemoglobin 10.4 g/dL Hematocrit 31.6 % Mean Corpuscular Volume 101.9 fL Mean Corpuscular Hemoglobin 33.5 pg Mean Corpuscular Hemoglobin Concent 32.9 g/dl Platelet Count 230 K/uL Mean Platelet Volume 9.7 fL Neutrophils (%) (Auto) 96.1 % Lymphocytes (%) (Auto) 1.0 % Monocytes (%) (Auto) 2.6 % Eosinophils (%) (Auto) 0.0 % Basophils (%) (Auto) 0.0 % Neutrophils # (Auto) 21.67 K/uL Lymphocytes # (Auto) 0.23 K/uL Monocytes # (Auto) 0.58 K/uL Eosinophils # (Auto) 0.00 K/uL Basophils # (Auto) 0.01 K/uL RDW Standard Deviation 53.7 fL RDW Coefficient of Variation 14.4 % Immature Granulocyte % (Auto) 0.3 % Immature Granulocyte # (Auto) 0.06 K/uL Sodium Level 135 mmol/L Potassium Level 3.6 mmol/L Chloride Level 97 mmol/L Carbon Dioxide Level 25 mmol/L Anion Gap 13.0 mmol/L Blood Urea Nitrogen 42 mg/dl Creatinine 8.09 mg/dl Est Creatinine Clear Calc Drug Dose 11.2 ml/min Estimated GFR () 8.0 Estimated GFR (Non- 6.9 BUN/Creatinine Ratio 5.2 Random Glucose 156 mg/dl Calcium Level 8.6 mg/dl Total Bilirubin 1.0 mg/dl Direct Bilirubin 0.2 mg/dl Aspartate Amino Transf (AST/SGOT) 51 U/L Alanine Aminotransferase (ALT/SGPT) 26 U/L Alkaline Phosphatase 136 U/L Troponin I 11.700 ng/ml Total Protein 7.3 gm/dl Albumin 2.9 gm/dl Random Vancomycin Level 23.2 mcg/ml Blood Gas Sample Site R Brachial Bedside Blood Gas pH (LAB) 7.22 Bedside Blood Gas pCO2 (LAB) 65 mmHg Bedside Blood Gas pO2 (LAB) 55 mmHg Bedside Blood Gas HCO3 (LAB) 27 meq/L Bedside Blood Gas Total CO2 29 mEq/l Bedside Blood Gas Base Excess (LAB) -1.0 meq/L Bedside Blood Gas O2 Saturation 82.0 % Carl Test NA Oxygen Delivery Device BIPAP Bedside Oxygen Rate (breaths/min) 34 Bedside FiO2 0 % Blood Gas IPAP 14 Test 05/19/17 06:24 05/19/17 06:50 05/19/17 07:37 05/19/17 08:31 Bedside Glucose 196 mg/dl 143 mg/dl 151 mg/dl Blood Gas Sample Site R Brachial Bedside Blood Gas pH (LAB) 7.19 Bedside Blood Gas pCO2 (LAB) 74 mmHg Bedside Blood Gas pO2 (LAB) 89 mmHg Bedside Blood Gas HCO3 (LAB) 28 meq/L Bedside Blood Gas Total CO2 30 mEq/l Bedside Blood Gas Base Excess (LAB) 0.0 meq/L Bedside Blood Gas O2 Saturation 94.0 % Carl Test NA Oxygen Delivery Device BIPAP Bedside Oxygen Rate (breaths/min) 31 Bedside FiO2 100 % Imaging: CXR: Bilateral infiltrates, probably no CHF EKG: Sinus tachycardia, inferolateral ST-T abnormalities. No ST elevation. Telemetry reviewed: Sinus rhythm and sinus tachycardia, went into acute distress his heart rate was quite fast. It does not appear to be an abnormal rhythm however. Limited echo: The echo was reviewed at the bedside, he has probably moderate aortic stenosis and reasonably good left ventricular function, with the tachycardia it is hard to tell but he does not have poor left ventricular function. Assessment & Plan 1. Troponin elevation: I suspect this was demand ischemia, there is not appear to be an acute infarction pattern. I suspect he has underlying coronary disease due to his risk factors including peripheral vascular disease, however invasive evaluation is not warranted at this time. I would like to get an echocardiogram (even though he just had one) specifically to look for wall motion abnormalities or LV dysfunction. The troponin is falling despite his ongoing illness which would go along with this being demand ischemia from hypotension and hypoxia as a cause. 2. Aortic stenosis: He does have some degree of aortic stenosis, the echocardiograms suggests moderate but not severe stenosis. On exam it sounds significant. Certainly there is no role for intervention currently. Thank you for allowing me to participate in his care.
[2017-05-19] MEDS ORDERED: MIDAZOLAM HCL 5 MG/ML 1 ML VIAL ONE (09:53)
--- NOTE | 2017-05-19 10:13 | Progress Note ---
Subjective Date of Service: May 19, 2017. Subjective Pt evaluation today including: physical exam, chart review, lab review, conversation w/ [facility] consultant Patient seen in follow-up visit donation. This morning patient respiratory distress high CO2 levels and was subsequently intubated. A CT scan of the chest was also obtained this morning which shows significant infiltration. He is for bronchoscopy this morning. He is sedated on the ventilator during my examination. He remains afebrile. He remains on and cefepime. He did receive a dose of vancomycin and his level this morning is 23. He was initially scheduled for dialysis today. His creatinine is elevated. His troponins continued increase from 5 yesterday to 11 7. There were also elevated during his last admission in early April and an echo at that was negative. Cardiology is to do a limited echo today as well. He appears to be tolerating antibiotics well. No cultures have been obtained. His white blood cell count has increased to 22,000 today. Problem List Medical Problems: (1) Bronchitis Status: Acute (2) Change in mental status Status: Acute (3) Contusion of head Status: Acute (4) End stage renal disease Status: Acute (5) ESRD (end stage renal disease) on dialysis Status: Acute (6) Fall Status: Acute (7) HCAP (healthcare-associated pneumonia) Status: Acute (8) Heart murmur Status: Acute (9) Hypoglycemia Status: Acute (10) Hypoglycemia Status: Acute (11) Hypoglycemia Status: Acute (12) Hypoglycemia Status: Acute (13) Hypoglycemia Status: Acute (14) Hypoglycemia Status: Acute (15) Hypokalemia Status: Acute (16) Hypotension Status: Acute (17) Hypoxemia Status: Acute (18) Hypoxia Status: Acute (19) NSTEMI (non-ST elevated myocardial infarction) Status: Acute (20) Right lower lobe pneumonia Status: Acute (21) Right middle lobe pneumonia Status: Acute (22) Sepsis Status: Acute (23) Sepsis Status: Acute (24) SOB (shortness of breath) Status: Acute (25) SOB (shortness of breath) Status: Acute (26) Syncope Status: Acute (27) Traumatic hematoma of forehead Status: Acute Objective Vital Signs Date Time Temp Pulse Resp B/P (MAP) Pulse Ox O2 Delivery O2 Flow Rate FiO2 05/19/17 07:25 100 05/19/17 06:40 156 148/86 05/19/17 06:22 92 100 05/19/17 04:00 36.7 109 37 148/94 (112) 90 High Flow Oxygen 50.0 50 CPAP 05/19/17 04:00 High Flow Oxygen 50.0 50 05/19/17 04:00 99 24 90 Nasal Cannula 50.0 50 05/19/17 00:00 36.7 95 26 129/86 (100) 94 CPAP 5.0 05/19/17 00:00 94 CPAP 5.0 05/18/17 23:29 91 90 5.0 05/18/17 23:28 91 18 90 BiPAP/CPAP 5.0 05/18/17 22:25 105 95 5.0 05/18/17 20:02 37.2 101 23 120/70 (87) 94 High Flow Oxygen 40.0 30 05/18/17 20:00 94 High Flow Oxygen 40.0 30 05/18/17 18:00 105 40 127/79 (95) 94 High Flow Oxygen 40.0 05/18/17 16:00 91 High Flow Oxygen 40.0 05/18/17 16:00 36.7 111 22 123/71 (88) 91 High Flow Oxygen 40.0 05/18/17 15:05 108 22 95 Nasal Cannula 3.0 05/18/17 14:00 108 22 127/72 (90) 93 High Flow Oxygen 40.0 05/18/17 12:00 109 30 106/59 (75) 92 High Flow Oxygen 40.0 05/18/17 12:00 High Flow Oxygen 40.0 Physical Exam General Appearance: + pertinent finding (Sedated on ventilator) Neck: supple Respiratory/Chest: + decreased breath sounds Cardiovascular: no edema, + systolic murmur Abdomen: soft Extremities: non-tender, no pedal edema, + pertinent finding (Previous amputations noted and well-healed) Skin: normal color Laboratory Results Last 24 Hours Test 05/18/17 10:21 05/18/17 10:36 05/18/17 11:12 05/18/17 11:52 Lactic Acid Level 2.3 mmol/L Bedside Glucose 66 mg/dl 139 mg/dl Bedside Glucose (other) 120 mg/dl Test 05/18/17 12:12 05/18/17 12:32 05/18/17 13:10 05/18/17 14:05 Creatine Kinase MB Ratio Creatine Kinase MB 39.5 ng/ml Troponin I 19.100 ng/ml Random Vancomycin Level 24.9 mcg/ml Bedside Glucose 145 mg/dl 120 mg/dl Test 05/18/17 15:17 05/18/17 15:58 05/18/17 17:01 05/18/17 17:44 Bedside Glucose 116 mg/dl 104 mg/dl 97 mg/dl Prothrombin Time 11.0 SECONDS Prothromb Time International Ratio 1.0 Activated Partial Thromboplast Time 28.8 SECONDS Partial Thromboplastin Ratio 1.1 Test 05/18/17 18:07 05/18/17 19:00 05/18/17 20:03 05/18/17 22:05 Bedside Glucose 121 mg/dl 123 mg/dl 117 mg/dl Troponin I 14.100 ng/ml Test 05/18/17 22:11 05/19/17 00:06 05/19/17 00:44 05/19/17 00:54 Bedside Glucose 114 mg/dl 103 mg/dl 78 mg/dl Activated Partial Thromboplast Time 50.5 SECONDS Partial Thromboplastin Ratio 1.9 Test 05/19/17 01:14 05/19/17 02:12 05/19/17 03:12 05/19/17 04:07 Bedside Glucose 119 mg/dl 105 mg/dl 119 mg/dl 118 mg/dl Test 05/19/17 05:07 05/19/17 05:09 05/19/17 05:50 05/19/17 06:24 White Blood Count 22.55 K/uL Red Blood Count 3.10 M/uL Hemoglobin 10.4 g/dL Hematocrit 31.6 % Mean Corpuscular Volume 101.9 fL Mean Corpuscular Hemoglobin 33.5 pg Mean Corpuscular Hemoglobin Concent 32.9 g/dl Platelet Count 230 K/uL Mean Platelet Volume 9.7 fL Neutrophils (%) (Auto) 96.1 % Lymphocytes (%) (Auto) 1.0 % Monocytes (%) (Auto) 2.6 % Eosinophils (%) (Auto) 0.0 % Basophils (%) (Auto) 0.0 % Neutrophils # (Auto) 21.67 K/uL Lymphocytes # (Auto) 0.23 K/uL Monocytes # (Auto) 0.58 K/uL Eosinophils # (Auto) 0.00 K/uL Basophils # (Auto) 0.01 K/uL RDW Standard Deviation 53.7 fL RDW Coefficient of Variation 14.4 % Immature Granulocyte % (Auto) 0.3 % Immature Granulocyte # (Auto) 0.06 K/uL Sodium Level 135 mmol/L Potassium Level 3.6 mmol/L Chloride Level 97 mmol/L Carbon Dioxide Level 25 mmol/L Anion Gap 13.0 mmol/L Blood Urea Nitrogen 42 mg/dl Creatinine 8.09 mg/dl Est Creatinine Clear Calc Drug Dose 11.2 ml/min Estimated GFR () 8.0 Estimated GFR (Non- 6.9 BUN/Creatinine Ratio 5.2 Random Glucose 156 mg/dl Calcium Level 8.6 mg/dl Total Bilirubin 1.0 mg/dl Direct Bilirubin 0.2 mg/dl Aspartate Amino Transf (AST/SGOT) 51 U/L Alanine Aminotransferase (ALT/SGPT) 26 U/L Alkaline Phosphatase 136 U/L Troponin I 11.700 ng/ml Total Protein 7.3 gm/dl Albumin 2.9 gm/dl Random Vancomycin Level 23.2 mcg/ml Bedside Glucose 148 mg/dl 196 mg/dl Blood Gas Sample Site R Brachial Bedside Blood Gas pH (LAB) 7.22 Bedside Blood Gas pCO2 (LAB) 65 mmHg Bedside Blood Gas pO2 (LAB) 55 mmHg Bedside Blood Gas HCO3 (LAB) 27 meq/L Bedside Blood Gas Total CO2 29 mEq/l Bedside Blood Gas Base Excess (LAB) -1.0 meq/L Bedside Blood Gas O2 Saturation 82.0 % Carl Test NA Oxygen Delivery Device BIPAP Bedside Oxygen Rate (breaths/min) 34 Bedside FiO2 0 % Blood Gas IPAP 14 Test 05/19/17 06:50 05/19/17 07:37 05/19/17 08:31 05/19/17 09:26 Blood Gas Sample Site R Brachial R Brachial Bedside Blood Gas pH (LAB) 7.19 7.33 Bedside Blood Gas pCO2 (LAB) 74 mmHg 48 mmHg Bedside Blood Gas pO2 (LAB) 89 mmHg 60 mmHg Bedside Blood Gas HCO3 (LAB) 28 meq/L 25 meq/L Bedside Blood Gas Total CO2 30 mEq/l 27 mEq/l Bedside Blood Gas Base Excess (LAB) 0.0 meq/L -1.0 meq/L Bedside Blood Gas O2 Saturation 94.0 % 89.0 % Carl Test NA NA Oxygen Delivery Device BIPAP Ventilator Bedside Oxygen Rate (breaths/min) 31 16 Bedside FiO2 100 % 80 % Bedside Glucose 143 mg/dl 151 mg/dl Blood Gas Minute Ventilation 14.1 Blood Gas Tidal Volume 550 Blood Gas PEEP 10 Test 05/19/17 09:28 Bedside Glucose 173 mg/dl Assessment and Plan (1) Pneumonia Assessment & Plan: CT findings worsening from previous. Bronchoscopy is pending. He will remain on empiric antibiotics blood and sputum culture should be obtained. There was a discussion with the ICU team about end-stage on multi organ disease and potential for family discussion. the patient's primary care provider a [id number], his , has recently .
[2017-05-19] MEDS ORDERED: IMIPENEM/CILASTATIN IV 500 MG in D5W 100ML IV STA (10:24)
[2017-05-19] MEDS ORDERED: CASPOFUNGIN INJ 70 MG in SODIUM CHLORIDE 0.9% 250ML 250 ML IV STA (10:24)
[2017-05-19] MEDS: FENTANYL CITRATE INJ 50 MCG/1 ML 2 ML VIAL IV PRN ×6 (10:36→23:39)
[2017-05-19] MEDS ORDERED: NURSING VERBAL MED ORDER ONE (10:45)
--- NOTE | 2017-05-19 10:56 | PULMONARY PROGRESS NOTE ---
DATE: 05/19/2017 TIME: 10:30 a.m. SUBJECTIVE: The patient deteriorated over nighttime. He had been transferred out of the surgical ICU. He developed progressive worsening of his shortness of breath. He became very restless and agitated. The patient was shouting he could not breathe. Saturations were decreased. He ultimately refused to wear the CPAP or BiPAP. High flow nasal was started. In spite of that he could not be well oxygenated. The patient was transferred back to surgical ICU. Ultimately, he was intubated and is now on mechanical ventilation. Within the past half hour, Dr. Gutierrez has done bronchoscopy on the patient and found large amounts of allen secretions. OBJECTIVE: GENERAL: The patient is sedated. He is on mechanical ventilation. There is an oral endotracheal tube in place. Temperature is 36.7. There has been no significant fevers in the past 24 hours. The maximum temperature was 37.2. HEART: The heart rate currently is 115. The rhythm is sinus tachycardia. Blood pressure 120/79. LUNGS: Auscultation of the lung infante reveals tubular breath sounds in both lower lung infante, but greater on the left than the right. There were minimal rhonchi heard. Current oxygen saturation 100%, but he is on 100% oxygen. ABDOMEN: Auscultation of the abdomen again reveals a loud bruit. Bowel sounds were faint but were present. The abdomen was soft. EXTREMITIES: Shows evidence of severe peripheral arterial disease as had been noted yesterday. IMAGING DATA: The patient had a chest x-ray done that showed marked worsening of the bilateral lung infiltrates. CAT scan of the chest was done. This showed the endotracheal tube 6 cm above the bj. There is a nasogastric tube in place in the proximal stomach. Bilateral consolidative infiltrative changes are noted that are markedly progressed. There are very small pleural effusions. No pulmonary emboli was seen. LABORATORY DATA: White count today is 22.55, hemoglobin 10.4, and platelets 230,000. PTT was 50.5. Blood gas at 5:50 a.m. showed a pH of 7.22 with a pCO2 of 65 and a pO2 of 55 on BiPAP. Repeat gas in 1 hour showed a pH of 7.19 with a pCO2 of 74 and a pO2 of 89 on BiPAP with 100% oxygen. Blood gas was done on mechanical ventilation at 9:26 a.m. showing a pH 7.33 with a pCO2 of 48 and a pO2 of 60. IMPRESSION: 1. Acute respiratory failure with hypoxia and hypercarbia. 2. Extensive bilateral lower lung field infiltrates, likely due to pneumonia. 3. Bronchiectasis. 4. Multiple nodules, mainly in the upper lobes by history. 5. Excessive dynamic airway collapse. 6. Obstructive sleep apnea by history. COMMENTS: Status is poor. He now has progressive respiratory failure and lung infiltrates. Bronchial washings are being sent to the lab. ID is on the case. The [employer] team is actively managing the ventilator. No patient's family members were present during this evaluation. Dr. Gutierrez indicated he is trying to set up a meeting with family members to let them know about the severity of this patient's disorder. Condition obviously critical.
[2017-05-19] MEDS: LEVOTHYROXINE 112 MCG TAB PO SCH (11:31)
[2017-05-19] MEDS: METHYLPREDNISOLONE IV 40 MG in SYRINGE 0 ML IV SCH ×3 (12:24→23:39)
[2017-05-19] MEDS: THIAMINE HCL INJ 200 MG in NSS 50ML IV SCH ×2 (12:25→21:21)
--- NOTE | 2017-05-19 12:32 | Psych Management Progress Note ---
Psychiatry Miscellaneous Date of Service: May 19, 2017. Consult received to evaluate for depression and capacity to refuse recommended treatment. Unfortunately, overnight the patient's condition deteriorated and he is now intubated. As he can no longer participate in treatment decisions, recommend an alternative decision maker be appointed by the primary team. Please contact the liaison nurse if and when he is able to be extubated to participate in an interview and assessment.
[2017-05-19] MEDS: HEPARIN 25,000 UNIT/500ML D5W 500 ML IV PRN (13:00)
[2017-05-19] MEDS: ASCORBIC ACID INJ 1,500 MG in NSS 100 ML IV SCH ×3 (13:01→23:39)
--- NOTE | 2017-05-19 14:26 | Procedure Note ---
Procedure Note Date of Service May 19, 2017. Procedure Note Procedure date: May 19, 2017 Procedure: fiberoptic bronchoscopy Pre-procedure Diagnosis: Hypoxic respiratory failure Post-procedure Diagnosis: same as above Prior to Procedure: Informed Consent: Emergency consent implied Attending Staff: Ector Gutierrez DO Resident/APC: Not applicable Skin Prep: Not applicable Anesthesia: Patient had a secured airway, was administered 100 mcg fentanyl, 8 mg Versed and had been given 10 mg vecuronium Indications: Patient is a 51-year-old male with a significant past medical history of end-stage renal disease, severe COPD, dynamic airway collapse with a history of polychondritis who had worsening hypercarbic and hypoxic respiratory failure requiring intubation. CT scan revealed worsening progression of bilateral lower lobe infiltrates and history of multiple organisms retrieved via bronchoscopy specimens in the past. The identity of the patient was confirmed and a bedside time out was performed. Description of Procedure: Fiberoptic bronchoscopy was performed via endotracheal tube. Bronchioalveolar lavage of the bilateral lower lobes was performed. Findings included: Copious allen secretions from the bilateral lower lobes, inflamed hyperemic airways bilaterally and significant dynamic airway collapse greater than 50% despite ventilator settings of 10 cm of water of PEEP Complications: None Specimens: Bronchial washings sent for culture and Gram stain, cytology, fungal elements, and AFB stain and culture. Estimated blood loss: Zero
--- NOTE | 2017-05-19 14:31 | Pharmacy Progress Note ---
Glycemic Control Progress Note Date of Service May 19, 2017. Scope Glycemic Pharmacist consulted for glycemic control to write orders per [facility] inpatient glycemic control protocol. Objective Accuchecks BSG (last 24hrs): Test 05/18/17 15:17 05/18/17 15:58 05/18/17 17:01 05/18/17 18:07 Bedside Glucose 116 mg/dl (70-99) 104 mg/dl (70-99) 97 mg/dl (70-99) 121 mg/dl (70-99) Test 05/18/17 19:00 05/18/17 20:03 05/18/17 22:11 05/19/17 00:06 Bedside Glucose 123 mg/dl (70-99) 117 mg/dl (70-99) 114 mg/dl (70-99) 103 mg/dl (70-99) Test 05/19/17 00:54 05/19/17 01:14 05/19/17 02:12 05/19/17 03:12 Bedside Glucose 78 mg/dl (70-99) 119 mg/dl (70-99) 105 mg/dl (70-99) 119 mg/dl (70-99) Test 05/19/17 04:07 05/19/17 05:07 05/19/17 05:09 05/19/17 06:24 Bedside Glucose 118 mg/dl (70-99) 148 mg/dl (70-99) 196 mg/dl (70-99) Random Glucose 156 mg/dl (70-99) Test 05/19/17 07:37 05/19/17 08:31 05/19/17 09:28 05/19/17 10:31 Bedside Glucose 143 mg/dl (70-99) 151 mg/dl (70-99) 173 mg/dl (70-99) 179 mg/dl (70-99) Test 05/19/17 11:28 05/19/17 12:32 05/19/17 13:26 Bedside Glucose 175 mg/dl (70-99) 177 mg/dl (70-99) 179 mg/dl (70-99) HbA1c: Test 05/18/17 04:10 Hemoglobin A1c 6.6 % (4.5-5.6) H Recent Pertinent Medications Outpatient Anti-diabetic Regimen: * Novolog pump * A1c = 6.6 % 05/18/17 Outpatient Anti-Diabetic Meds Basal Insulin Bolus Insulin Assessment & Plan ASSESSMENT: 05/18 * 51 yo brittle Type 1 diabetic known to our service * Significant stressors in brittle type 1 diabetic in ICU - insulin drip is best to manage BSG's at this time 05/19 * Changes to stressors * Intubated * Norepinephrine resumed for significant hypotension * Antibiotics broadened * Patient should be continued on insulin drip * Note: insulin drip *must* continue in type 1 diabetics as they require at least some basal insulin. Pending order written for RN to call pharmacy or academic vice president if insulin drip protocol indicates to hold drip for longer than 30 minutes. Patient may require dextrose administration to allow for continued insulin administration without hypoglycemia PLAN FOR INPATIENT GLYCEMIC CONTROL: * Continue IV insulin infusion * Goal Range 110 - 180 mg/dl * In the critical care setting, continuous IV insulin infusion has been shown to be the best method for achieving glycemic targets. * [facility] per insulin drip calculator * Please note that the plan above was derived based on current level of insulin resistance and hospital stress. These recommendations are appropriate for inpatient admission only. Plan of care upon discharge will need to be reassessed to avoid potential outpatient hypo/hyperglycemia. Thank you.
--- NOTE | 2017-05-19 14:32 | Procedure Note ---
Procedure Note Date of Service May 19, 2017. Procedure Note Procedure Date: May 19, 2017 Procedure: Endotracheal intubation Pre-procedure Diagnosis: Hypercarbic hypoxic respiratory failure Post-procedure Diagnosis: same as above Prior to Procedure: Informed Consent: emergent Attending Staff: Ector Gutierrez DO Indications: Patient is a 51-year-old male who has a history of COPD and dynamic airway collapse and end-stage renal disease who had progressive worsening hypercarbic hypoxic respiratory failure failed noninvasive ventilation requiring mechanical ventilation. The identity of the patient was confirmed and a bedside time out was performed. Description of Procedure: Patient was evaluated and required intubation for impending respiratory failure. The patient was prepared in the usual fashion. A 3 MAC laryngoscope was used. Initial visualization, the 3 MAC was not long enough to achieve adequate visualization of the cords, patient's oxygen saturation decreased to 89 %, he was subsequently bags to approximately 95% and repeat attempt was undertaken with a 4 MAC laryngoscope. A 8 Fr endotrachial tube was placed endotracheally to 26 cm at the teeth. A grade 1 view was obtained. The endotracheal tube was noted to pass through the vocal cords. Chest rise was bilateral. Bilateral breath sounds were heard without air sounds in the abdomen. Mist was noted in the endotracheal tube. End-tidal CO2 measurement was positive. Chest x-ray was reported to show a high endotracheal tube, this position was later confirmed as adequate via direct visualization achieved during bronchoscopy. Complications: Temporary oxygen desaturated to 89% as noted above Findings: not applicable Specimens: not applicable Estimated blood loss: Zero
[2017-05-19] MEDS: LEValbuterol HFA 15GM INHALER INH SCH ×2 (14:45→23:45)
--- NOTE | 2017-05-19 15:20 | Pharmacy Progress Note ---
Pharmacy Antibiotic Prog Note Date of Service May 19, 2017. Objective Height (Feet): 5 Height (Inches): 10.00 Weight (Kilograms): 85.000 Lab Results (24hrs): Test 05/18/17 17:44 05/19/17 00:44 05/19/17 05:07 05/19/17 05:50 Prothrombin Time 11.0 SECONDS (9.0-12.0) Prothromb Time International Ratio 1.0 (0.9-1.1) Activated Partial Thromboplast Time 28.8 SECONDS (21.0-31.0) 50.5 SECONDS (21.0-31.0) Partial Thromboplastin Ratio 1.1 1.9 White Blood Count 22.55 K/uL (4.8-10.8) Red Blood Count 3.10 M/uL (4.7-6.1) Hemoglobin 10.4 g/dL (14.0-18.0) Hematocrit 31.6 % (42-52) Mean Corpuscular Volume 101.9 fL (80-100) Mean Corpuscular Hemoglobin 33.5 pg (25-34) Mean Corpuscular Hemoglobin Concent 32.9 g/dl (32-36) Platelet Count 230 K/uL (130-400) Mean Platelet Volume 9.7 fL (7.4-10.4) Neutrophils (%) (Auto) 96.1 % Lymphocytes (%) (Auto) 1.0 % Monocytes (%) (Auto) 2.6 % Eosinophils (%) (Auto) 0.0 % Basophils (%) (Auto) 0.0 % Neutrophils # (Auto) 21.67 K/uL (1.4-6.5) Lymphocytes # (Auto) 0.23 K/uL (1.2-3.4) Monocytes # (Auto) 0.58 K/uL (0.11-0.59) Eosinophils # (Auto) 0.00 K/uL (0-0.5) Basophils # (Auto) 0.01 K/uL (0-0.2) RDW Standard Deviation 53.7 fL (36.4-46.3) RDW Coefficient of Variation 14.4 % (11.5-14.5) Immature Granulocyte % (Auto) 0.3 % Immature Granulocyte # (Auto) 0.06 K/uL (0.00-0.02) Sodium Level 135 mmol/L (136-145) Potassium Level 3.6 mmol/L (3.5-5.1) Chloride Level 97 mmol/L (98-107) Carbon Dioxide Level 25 mmol/L (21-32) Anion Gap 13.0 mmol/L (3-11) Blood Urea Nitrogen 42 mg/dl (7-18) Creatinine 8.09 mg/dl (0.60-1.40) Est Creatinine Clear Calc Drug Dose 11.2 ml/min Estimated GFR () 8.0 Estimated GFR (Non- 6.9 BUN/Creatinine Ratio 5.2 (10-20) Random Glucose 156 mg/dl (70-99) Calcium Level 8.6 mg/dl (8.5-10.1) Total Bilirubin 1.0 mg/dl (0.2-1) Direct Bilirubin 0.2 mg/dl (0-0.2) Aspartate Amino Transf (AST/SGOT) 51 U/L (15-37) Alanine Aminotransferase (ALT/SGPT) 26 U/L (12-78) Alkaline Phosphatase 136 U/L (45-117) Troponin I 11.700 ng/ml (0-0.045) Total Protein 7.3 gm/dl (6.4-8.2) Albumin 2.9 gm/dl (3.4-5.0) Random Vancomycin Level 23.2 mcg/ml Blood Gas IPAP 14 Test 05/19/17 06:50 05/19/17 09:26 05/19/17 12:32 05/19/17 13:26 Blood Gas Sample Site R Brachial R Brachial Bedside Blood Gas pH (LAB) 7.19 (7.35-7.45) 7.33 (7.35-7.45) Bedside Blood Gas pCO2 (LAB) 74 mmHg (35-46) 48 mmHg (35-46) Bedside Blood Gas pO2 (LAB) 89 mmHg (80-95) 60 mmHg (80-95) Bedside Blood Gas HCO3 (LAB) 28 meq/L (19-24) 25 meq/L (19-24) Bedside Blood Gas Total CO2 30 mEq/l (24-31) 27 mEq/l (24-31) Bedside Blood Gas Base Excess (LAB) 0.0 meq/L (-9-1.8) -1.0 meq/L (-9-1.8) Bedside Blood Gas O2 Saturation 94.0 % (90-95) 89.0 % (90-95) Carl Test NA NA Oxygen Delivery Device BIPAP Ventilator Bedside Oxygen Rate (breaths/min) 31 16 Bedside FiO2 100 % 80 % Blood Gas Minute Ventilation 14.1 Blood Gas Tidal Volume 550 Blood Gas PEEP 10 Bedside Glucose 177 mg/dl (70-99) 179 mg/dl (70-99) Test 05/19/17 14:43 Assessment & Plan Assessment * 51 yo M in ICU with sepsis * Patient intubated this AM * Norepinephrine resumed * Bronch performed * WBC increasing * Possible penicillin, clindamycin allergies (unknown reaction). 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 Will then give vancomycin 500 mg Pharmacy will continue to follow and will adjust dose/frequency as necessary. Thank you
[2017-05-19] MEDS: MIDAZOLAM HCL 1 MG/ML 2ML VIAL IV PRN ×5 (15:45→23:39)
--- NOTE | 2017-05-19 15:49 | Nephrology Progress Note ---
Nephrology Progress Note Date of Service May 19, 2017. Chief Complaint ESRD Subjective Mr. Clark was seen & examined in the ICU this morning. His medical management was discussed w/ the ICU team. Mr. Clark developed hypercarbic respiratory failure last night requiring transfer back to the ICU and mechanical ventilation. CXR shows bilateral infiltrates. HD was scheduled for this morning however at the time of my evaluation patient was hypotensive w/ SBP 60's. nursing staffing coordinator was in the process of starting pressor support. Review of Systems Mechanically ventilated Vital Signs Last 8 Hrs Date Time Temp Pulse Resp B/P (MAP) Pulse Ox O2 Delivery O2 Flow Rate FiO2 05/19/17 14:49 60 05/19/17 14:00 118 16 120/81 (94) 94 Mechanical Ventilator 100 05/19/17 12:00 94 Mechanical Ventilator 100 05/19/17 12:00 36.8 106 16 114/78 (90) 95 Mechanical Ventilator 100 05/19/17 12:00 100 05/19/17 11:05 100 05/19/17 10:13 110 113/77 (89) 100 05/19/17 10:12 110 100 05/19/17 10:11 110 119/72 (97) 100 05/19/17 10:10 111 100 05/19/17 10:09 111 117/79 (89) 100 05/19/17 10:08 110 100 05/19/17 10:07 111 119/77 (87) 100 05/19/17 10:06 108 100 05/19/17 10:05 109 117/80 (92) 100 05/19/17 10:04 107 100 05/19/17 10:03 107 120/79 (92) 100 05/19/17 10:02 110 100 05/19/17 10:01 108 126/83 (94) 100 05/19/17 10:00 111 100 05/19/17 10:00 112 16 129/78 (95) 97 Mechanical Ventilator 100 05/19/17 09:59 119 137/81 (99) 100 05/19/17 09:58 129 129/78 (98) 98 05/19/17 09:57 138 97 05/19/17 09:56 119 100/67 (73) 97 05/19/17 09:55 113 97 05/19/17 08:00 Mechanical Ventilator 80 05/19/17 08:00 100 05/19/17 08:00 96 High Flow Oxygen 100 Mechanical Ventilator 05/19/17 08:00 36.3 128 16 128/93 (105) 95 Mechanical Ventilator 100 I & O 24-Hour Column 05/20/17 08:00 Intake Total 1422 ml Balance 1422 ml Last Recorded Weight Weight (Kilograms): 85.000 Physical Exam General Appearance: + pertinent finding (acutely ill, mechanically ventilated) Head: normocephalic, atraumatic Eyes: PERRL, EOMI Respiratory/Chest: + rhonchi Cardiovascular: + tachycardia Abdomen/GI: soft Extremities/Musculoskelatal: no pedal edema, + pertinent finding (L arm AVF w/ faint bruit) Family History FH: heart disease Negative for CKD / ESRD Social History Smoking Status: Current every day smoker Drug Use: none Marital Status: Housing Status: lives with family Occupation: disabled . Medically disabled. Former smoker (Quit 2013) Laboratory Results Past 24 Hours 05/19/17 05:07 Red Blood Count 3.10, Mean Corpuscular Volume 101.9, Mean Corpuscular Hemoglobin 33.5, Mean Corpuscular Hemoglobin Concent 32.9, Mean Platelet Volume 9.7, Neutrophils (%) (Auto) 96.1, Lymphocytes (%) (Auto) 1.0, Monocytes (%) ( Auto) 2.6, Eosinophils (%) (Auto) 0.0, Basophils (%) (Auto) 0.0, Neutrophils # ( Auto) 21.67, Lymphocytes # (Auto) 0.23, Monocytes # (Auto) 0.58, Eosinophils # ( Auto) 0.00, Basophils # (Auto) 0.01 05/19/17 05:07 Test 05/18/17 15:58 05/18/17 17:01 05/18/17 17:44 05/18/17 18:07 Bedside Glucose 104 mg/dl (70-99) 97 mg/dl (70-99) 121 mg/dl (70-99) Prothrombin Time 11.0 SECONDS (9.0-12.0) Prothromb Time International Ratio 1.0 (0.9-1.1) Activated Partial Thromboplast Time 28.8 SECONDS (21.0-31.0) Partial Thromboplastin Ratio 1.1 Test 05/18/17 19:00 05/18/17 20:03 05/18/17 22:05 05/18/17 22:11 Bedside Glucose 123 mg/dl (70-99) 117 mg/dl (70-99) 114 mg/dl (70-99) Troponin I 14.100 ng/ml (0-0.045) Test 05/19/17 00:06 05/19/17 00:44 05/19/17 00:54 05/19/17 01:14 Bedside Glucose 103 mg/dl (70-99) 78 mg/dl (70-99) 119 mg/dl (70-99) Activated Partial Thromboplast Time 50.5 SECONDS (21.0-31.0) Partial Thromboplastin Ratio 1.9 Test 05/19/17 02:12 05/19/17 03:12 05/19/17 04:07 05/19/17 05:07 Bedside Glucose 105 mg/dl (70-99) 119 mg/dl (70-99) 118 mg/dl (70-99) White Blood Count 22.55 K/uL (4.8-10.8) Red Blood Count 3.10 M/uL (4.7-6.1) Hemoglobin 10.4 g/dL (14.0-18.0) Hematocrit 31.6 % (42-52) Mean Corpuscular Volume 101.9 fL (80-100) Mean Corpuscular Hemoglobin 33.5 pg (25-34) Mean Corpuscular Hemoglobin Concent 32.9 g/dl (32-36) Platelet Count 230 K/uL (130-400) Mean Platelet Volume 9.7 fL (7.4-10.4) Neutrophils (%) (Auto) 96.1 % Lymphocytes (%) (Auto) 1.0 % Monocytes (%) (Auto) 2.6 % Eosinophils (%) (Auto) 0.0 % Basophils (%) (Auto) 0.0 % Neutrophils # (Auto) 21.67 K/uL (1.4-6.5) Lymphocytes # (Auto) 0.23 K/uL (1.2-3.4) Monocytes # (Auto) 0.58 K/uL (0.11-0.59) Eosinophils # (Auto) 0.00 K/uL (0-0.5) Basophils # (Auto) 0.01 K/uL (0-0.2) RDW Standard Deviation 53.7 fL (36.4-46.3) RDW Coefficient of Variation 14.4 % (11.5-14.5) Immature Granulocyte % (Auto) 0.3 % Immature Granulocyte # (Auto) 0.06 K/uL (0.00-0.02) Anion Gap 13.0 mmol/L (3-11) Est Creatinine Clear Calc Drug Dose 11.2 ml/min Estimated GFR () 8.0 Estimated GFR (Non- 6.9 BUN/Creatinine Ratio 5.2 (10-20) Calcium Level 8.6 mg/dl (8.5-10.1) Total Bilirubin 1.0 mg/dl (0.2-1) Direct Bilirubin 0.2 mg/dl (0-0.2) Aspartate Amino Transf (AST/SGOT) 51 U/L (15-37) Alanine Aminotransferase (ALT/SGPT) 26 U/L (12-78) Alkaline Phosphatase 136 U/L (45-117) Troponin I 11.700 ng/ml (0-0.045) Total Protein 7.3 gm/dl (6.4-8.2) Albumin 2.9 gm/dl (3.4-5.0) Random Vancomycin Level 23.2 mcg/ml Test 05/19/17 05:09 05/19/17 05:50 05/19/17 06:24 05/19/17 06:50 Bedside Glucose 148 mg/dl (70-99) 196 mg/dl (70-99) Blood Gas Sample Site R Brachial R Brachial Bedside Blood Gas pH (LAB) 7.22 (7.35-7.45) 7.19 (7.35-7.45) Bedside Blood Gas pCO2 (LAB) 65 mmHg (35-46) 74 mmHg (35-46) Bedside Blood Gas pO2 (LAB) 55 mmHg (80-95) 89 mmHg (80-95) Bedside Blood Gas HCO3 (LAB) 27 meq/L (19-24) 28 meq/L (19-24) Bedside Blood Gas Total CO2 29 mEq/l (24-31) 30 mEq/l (24-31) Bedside Blood Gas Base Excess (LAB) -1.0 meq/L (-9-1.8) 0.0 meq/L (-9-1.8) Bedside Blood Gas O2 Saturation 82.0 % (90-95) 94.0 % (90-95) Carl Test NA NA Oxygen Delivery Device BIPAP BIPAP Bedside Oxygen Rate (breaths/min) 34 31 Bedside FiO2 0 % 100 % Blood Gas IPAP 14 Test 05/19/17 07:37 05/19/17 08:31 05/19/17 09:26 05/19/17 09:28 Bedside Glucose 143 mg/dl (70-99) 151 mg/dl (70-99) 173 mg/dl (70-99) Blood Gas Sample Site R Brachial Bedside Blood Gas pH (LAB) 7.33 (7.35-7.45) Bedside Blood Gas pCO2 (LAB) 48 mmHg (35-46) Bedside Blood Gas pO2 (LAB) 60 mmHg (80-95) Bedside Blood Gas HCO3 (LAB) 25 meq/L (19-24) Bedside Blood Gas Total CO2 27 mEq/l (24-31) Bedside Blood Gas Base Excess (LAB) -1.0 meq/L (-9-1.8) Bedside Blood Gas O2 Saturation 89.0 % (90-95) Carl Test NA Oxygen Delivery Device Ventilator Bedside Oxygen Rate (breaths/min) 16 Blood Gas Minute Ventilation 14.1 Bedside FiO2 80 % Blood Gas Tidal Volume 550 Blood Gas PEEP 10 Test 05/19/17 10:31 05/19/17 11:28 05/19/17 12:32 05/19/17 13:26 Bedside Glucose 179 mg/dl (70-99) 175 mg/dl (70-99) 177 mg/dl (70-99) 179 mg/dl (70-99) Test 05/19/17 14:43 Allergies Coded Allergies: Codeine (Verified Allergy, Intermediate, NAUSEA AND VOMITING, 05/07/17) QUESTIONABLE ALLERGY, STILL QUESTIONABLE BUT D/C SHONDA WITH COD 02/20/17 Tigecycline (Verified Allergy, Mild, ?RASH, 05/07/17) Clindamycin (Verified Allergy, Unknown, Unknown, 05/07/17) Penicillins (Verified Allergy, Unknown, PT HAS HAD MEFOXIN W/OUT A PROBLEM , 05/07/17) HAD MEFOXIN W/O PROBLEM Ciprofloxacin (Verified Adverse Reaction, Intermediate, nausea,vomiting, generalized weakness, 05/07/17) Morphine (Verified Adverse Reaction, Intermediate, TREMBLING,NAUSEA AND VOMITING, 05/07/17) Opioid Analgesics (Verified Adverse Reaction, Intermediate, "ALL RX PAIN MEDS CAUSE SEVERE NAUSEA", 05/07/17) Levofloxacin (Verified Adverse Reaction, Mild, Cipro/Levaquin (IV & po) = N & V, 05/07/17) Oxycodone (Verified Adverse Reaction, Unknown, N/V/D, 05/07/17) SPOKE WITH PATIENT ON 07/29/15, DOES NOT REMEMBER ANY DIFFICULTY BREATHING JUST HIT HIM HARD. Medications Current Inpatient Medications Medications (Trade) Dose Ordered Sig/Etta Route Start Time Stop Time Status Last Admin Dose Admin Miscellaneous Information (Consult) 1 ea UD PRN N/A 05/17/17 19:00 06/16/17 18:59 Atorvastatin Calcium (Lipitor Tab) 40 mg HS PO 05/17/17 21:00 06/16/17 20:59 05/18/17 21:09 40 MG Bupropion HCl (Wellbutrin-Sr Tab) 200 mg QPM PO 05/17/17 21:00 06/16/17 20:59 05/18/17 21:11 200 MG Clopidogrel Bisulfate (plAVix TAB) 75 mg Q2D@0900 PO 05/18/17 09:00 06/17/17 08:59 05/18/17 07:43 75 MG Gabapentin (Neurontin Cap) 100 mg BID PO 05/17/17 21:00 06/16/17 20:59 05/18/17 21:10 100 MG Albuterol/ Ipratropium (Duoneb) 3 ml QID PRN INH 05/17/17 20:15 06/16/17 20:14 05/19/17 04:00 3 ML Levothyroxine Sodium (Synthroid Tab) 112 mcg DAILYBB PO 05/18/17 06:00 06/17/17 05:59 05/18/17 06:37 112 MCG Miscellaneous Information (Order Awaiting Action) 1 ea QS N/A 05/18/17 00:00 06/17/17 00:00 Sevelamer HCl (Renagel Tab) 1,600 mg TIDM PO 05/18/17 07:15 06/17/17 07:14 05/18/17 15:56 1,600 MG Lactobacillus Acidophilus (Floranex Tab) 4 tab TIDM PO 05/18/17 07:15 06/17/17 07:59 05/18/17 15:56 4 TAB Acetaminophen (Tylenol Tab) 650 mg Q4H PRN PO 05/17/17 20:15 06/16/17 20:14 Glucose (Glucose 40% Gel) 15-30 GRAMS 15 GRAMS... UD PRN PO 05/17/17 20:15 06/16/17 20:14 Glucose (Glucose Chew Tab) 4-8 Tablets 4 Tabl... UD PRN PO 05/17/17 20:15 06/16/17 20:14 Dextrose (Dextrose 50% 50ML Syringe) 25-50ML OF 50% DW IV FOR... UD PRN IV 05/17/17 20:15 06/16/17 20:14 05/19/17 01:05 25 ML Glucagon (Glucagon Inj) 1 mg UD PRN SQ 05/17/17 20:15 06/16/17 20:14 Miscellaneous Information (Consult Glycemic Management Pharmacy) 1 ea UD PRN N/A 05/17/17 20:52 06/16/17 20:51 Levofloxacin 500 mg/Prmx 100 ml @ 100 mls/hr Q48H IV 05/19/17 20:00 05/24/17 19:59 Norepinephrine Bitartrate 8 mg/ Dextrose 508 ml @ 0 mls/hr Q0M PRN IV 05/17/17 20:31 06/16/17 23:59 05/19/17 09:49 128 MLS/HR Insulin Human Regular 250 units/ Sodium Chloride 252.5 ml @ 0 mls/hr Q24H IV 05/17/17 22:45 06/16/17 22:44 05/17/17 22:54 3.4 MLS/HR Insulin Aspart (novoLOG ASPART) SLIDING SCALE HS SC 05/18/17 08:00 06/17/17 07:59 05/18/17 17:14 5 UNITS Miscellaneous Information (Pending Order) 1 ea QS N/A 05/18/17 16:00 06/17/17 15:59 05/19/17 08:00 1 EA Heparin Sodium (Porcine) (Heparin Iv Bolus) 2,000 unit TODAY@0600 IV 05/19/17 06:00 05/19/17 18:00 Epoetin Diaz (Procrit Inj) 10,000 units TODAY@0600 IV. 05/19/17 06:00 05/19/17 18:00 Paricalcitol (Zemplar Inj) 3 mcg ONE IV. 05/19/17 06:00 05/19/17 18:00 Heparin Sodium/ Dextrose 500 ml @ 28 mls/hr [id number] PRN IV 05/18/17 18:15 06/17/17 18:14 05/19/17 13:00 28 MLS/HR Midazolam HCl (Versed Inj) 2 mg Q2H PRN IV 05/19/17 07:15 06/18/17 07:14 Fentanyl Citrate (Fentanyl Inj) 50 mcg Q2H PRN IV 05/19/17 07:15 06/02/17 07:14 05/19/17 14:49 50 MCG Ioversol (Optiray 320) 100 ml UD PRN IV 05/19/17 08:15 05/23/17 08:14 Vasopressin 50 units/Sodium Chloride 502.5 ml @ 24 mls/hr [id number] IV 05/19/17 09:45 06/18/17 09:44 Imipenem/ Cilastatin Sodium 500 mg/Dextrose 110 ml @ 110 mls/hr Q12@1000,2200 IV 05/19/17 22:00 05/26/17 21:59 Caspofungin 50 mg/ Sodium Chloride 260 ml @ 260 mls/hr DAILY@0900 IV 05/20/17 09:00 06/19/17 08:59 Thiamine HCl 200 mg/Sodium Chloride 52 ml @ 210 mls/hr Q12@1000,2200 IV 05/19/17 11:00 05/22/17 22:15 05/19/17 12:25 210 MLS/HR Ascorbic Acid 1500 mg/Sodium Chloride 103 ml @ 206 mls/hr Q6 IV 05/19/17 12:00 05/23/17 06:29 05/19/17 13:01 206 MLS/HR Methylprednisolone Sodium Succinate 40 mg/Syringe 0.64 ml @ 1.5 mls/min Q6 IV 05/19/17 12:00 06/18/17 11:59 05/19/17 12:24 1.5 MLS/MIN Levalbuterol (Xopenex Hfa Inhaler) 4 puffs Q8R INH 05/19/17 16:00 06/18/17 15:59 05/19/17 14:45 4 PUFFS Miscellaneous Information (Pending Order) 1 ea TODAY@1999 ONCE N/A 05/19/17 20:00 05/19/17 20:01 Impression (1) End-stage renal disease on hemodialysis (2) Bronchitis (3) Tracheomalacia (4) Diabetes mellitus (5) Anemia Patient admitted to the hospital w/ recurrent bronchitis. He has a history of severe tracheal malacia with chronic bronchiectasis. He tested negative for Influenza. He is now on broad spectrum antibiotics. Blood cultures and Mycoplasma testing are pending. CXR is negative for infiltrates. PMH - ESRD due to diabetic nephropathy on IHD since 12/25 (HD TTS at [facility] - 4 hrs 2K 2Ca F180NR Qb 450 cc/min HCO3 34 EDW 83 kg), IDDM, HTN , PVD s/p R femoral artery bypass, anemia, hypothyroidism, hypercholesterolemia , bipolar disorder, COPD w/ severe tracheomalacia and chronic bronchiectasis ( quit smoking ~ 2013). Recommendations END STAGE RENAL DISEASE: -- HD cancelled today due to hemodynamic instability. Electrolyte balance remains acceptable. Will reassess need for HD in am -- Protect L arm AVF for HD ID: -- Cefipime and Levaquin doses are appropriate for ESRD -- Await blood and Mycoplasma cultures -- Patient underwent bronchoscopy this afternoon. Await bronchoscopy culture results. ANEMIA: -- Low grade. Will monitor and provide GINO w/ HD 30 minutes critical care time provided. This was necessary to review records, examine patient, discuss management w/ ICU team and coordinate dialysis services.
--- NOTE | 2017-05-19 16:25 | ECHOCARDIOGRAM REPORT ---
*NOTICE TO RECEIVING CONSTITUTION PARTY AGENCY This information is strictly Confidential and protected under [place] law. [place] law prohibits you from making any further disclosure of this information unless further disclosure is expressly permitted by the written consent of the person to whom it pertains or is authorized by law. A general authorization for the release of medical or other information is not sufficient for this purpose. Hospital accepts no responsibility if the information is made available to any other person, INCLUDING THE PATIENT. Interpretation Summary * Name: YU HOOK Study Date: 05/19/2017 01:43 PM BP: 129/86 mmHg * Patient Location: .MSICU\S\E108\S\1 HR: 99 * : 1965 (M/d/yyyy) Gender: Male Height: 70 in * Age: 51 yrs Ethnicity: [place] Weight: 183 lb * Ordering Physician: Melsisa Guerrier * Referring Physician: Self, Referred * Performed By: Tita Lugo RCS * * Reason For Study: Eval LV Function and Aortic Valve * BSA: 2.0 m2 * -- Conclusions -- * Limited views were obtained. * The left ventricular ejection fraction is grossly normal. * Regional wall motion abnormalities cannot be excluded due to limited visualization. * Moderate valvular aortic stenosis. Procedure Details * A two-dimensional transthoracic echocardiogram was performed. * A two-dimensional transthoracic echocardiogram with pulsed and continuous Doppler was performed. * Limited views were obtained. * There were technical limitations due to patient'ssupine positioning while on mechanical ventilation Left Ventricle * Ejection Fraction = 60-65%. * The left ventricular ejection fraction is grossly normal. * Regional wall motion abnormalities cannot be excluded due to limited visualization. Mitral Valve * Mitral valve leaflets and apparatus is calcified. Aortic Valve * Heavily calcified aortic valve. Immobile right coronary cusp * Moderate valvular aortic stenosis. Pericardium/Pleural * There is no pericardial effusion. MMode 2D Measurements and Calculations IVSd 1.3 cm IVSs 1.9 cm LVIDd 5.3 cm LVIDs 3.7 cm LVPWd 1.2 cm LVPWs 1.3 cm IVS/LVPW 1.0 FS 31.3 % EDV(Teich) 137.1 ml ESV(Teich) 56.6 ml EF(Teich) 58.7 % EDV(cubed) 151.4 ml ESV(cubed) 49.0 ml EF(cubed) 67.6 % % IVS thick 52.2 % % LVPW thick 2.9 % LV mass(C)d 277.4 grams LV mass(C)dI 138.0 grams/m\S\2 LV mass(C)s 231.4 grams LV mass(C)sI 115.1 grams/m\S\2 SV(Teich) 80.5 ml SI(Teich) 40.0 ml/m\S\2 SV(cubed) 102.4 ml SI(cubed) 50.9 ml/m\S\2 LVOT diam 1.9 cm LVOT area 2.9 cm\S\2 LVAd ap4 41.9 cm\S\2 LVLd ap4 8.6 cm EDV(MOD-sp4) 166.2 ml EDV(sp4-el) 173.4 ml LVAs ap4 26.6 cm\S\2 LVLs ap4 7.4 cm ESV(MOD-sp4) 79.4 ml ESV(sp4-el) 81.4 ml EF(MOD-sp4) 52.2 % EF(sp4-el) 53.0 % LVAd ap2 40.7 cm\S\2 LVLd ap2 9.0 cm EDV(MOD-sp2) 149.9 ml EDV(sp2-el) 155.2 ml LVAs ap2 23.5 cm\S\2 LVLs ap2 7.1 cm ESV(MOD-sp2) 67.1 ml ESV(sp2-el) 65.8 ml EF(MOD-sp2) 55.2 % EF(sp2-el) 57.6 % LVLd %diff 5.1 % EDV(MOD-bp) 161.8 ml LVLs %diff -3.93 % ESV(MOD-bp) 74.4 ml EF(MOD-bp) 54.0 % SV(MOD-sp4) 86.8 ml SI(MOD-sp4) 43.2 ml/m\S\2 SV(MOD-sp2) 82.8 ml SI(MOD-sp2) 41.2 ml/m\S\2 SV(MOD-bp) 87.4 ml SI(MOD-bp) 43.5 ml/m\S\2 SV(sp4-el) 92.0 ml SI(sp4-el) 45.8 ml/m\S\2 SV(sp2-el) 89.4 ml SI(sp2-el) 44.5 ml/m\S\2 Doppler Measurements and Calculations Ao V2 max 345.3 cm/sec Ao max PG 47.7 mmHg Ao max PG (full) 40.6 mmHg Ao V2 mean 245.6 cm/sec Ao mean PG 27.5 mmHg Ao mean PG (full) 23.8 mmHg Ao V2 VTI 61.0 cm PETER(I,A) 0.93 cm\S\2 PETER(I,D) 0.93 cm\S\2 PETER(V,A) 1.1 cm\S\2 PETER(V,D) 1.1 cm\S\2 LV V1 max PG 7.1 mmHg LV V1 mean PG 3.7 mmHg LV V1 max 133.4 cm/sec LV V1 mean 89.3 cm/sec LV V1 VTI 19.8 cm SV(LVOT) 57.0 ml SI(LVOT) 28.4 ml/m\S\2
[2017-05-19] MEDS ORDERED: MIDAZOLAM HCL 1 MG/ML 2ML VIAL IV ONE (18:00)
--- NOTE | 2017-05-19 19:07 | Hospitalist Progress Note ---
Hospitalist Progress Note Date of Service May 19, 2017. Subjective Pt evaluation today including: conversation w/ family, conversation w/ field service consultant (Heat Seal Operator, Nephrology) Pt had acute respiratory failure again overnight and was brought back to ICU and subsequently intubated. Bronchoscopy performed which revealed copious allen secretions in lower lobes bilat and cultures sent. He is back on Levophed as well. HD could not be performed today. Family friends that seem semi-versed in medical lingo have concerns that pt is frequently "bucking the vent." Want to have pt be on continuous sedation rather than intermittent. I discussed this with Heat Seal Operator who then d/w family and friends at bedside. Pt appears comfortable at this time but is intubated, sedated. Additional Comments: unobtainable due to sedation and intubation Objective Vital Signs Date Time Temp Pulse Resp B/P (MAP) Pulse Ox O2 Delivery O2 Flow Rate FiO2 05/19/17 18:00 100 16 138/90 (106) 98 Mechanical Ventilator 50 05/19/17 17:42 60 05/19/17 16:00 36.6 100 16 128/82 (97) 98 Mechanical Ventilator 100 05/19/17 15:59 100 05/19/17 15:59 99 Mechanical Ventilator 100 05/19/17 14:49 60 05/19/17 14:00 118 16 120/81 (94) 94 Mechanical Ventilator 100 05/19/17 12:00 94 Mechanical Ventilator 100 05/19/17 12:00 36.8 106 16 114/78 (90) 95 Mechanical Ventilator 100 05/19/17 12:00 100 05/19/17 11:05 100 05/19/17 10:13 110 113/77 (89) 100 05/19/17 10:12 110 100 05/19/17 10:11 110 119/72 (97) 100 05/19/17 10:10 111 100 05/19/17 10:09 111 117/79 (89) 100 05/19/17 10:08 110 100 05/19/17 10:07 111 119/77 (87) 100 05/19/17 10:06 108 100 05/19/17 10:05 109 117/80 (92) 100 05/19/17 10:04 107 100 05/19/17 10:03 107 120/79 (92) 100 05/19/17 10:02 110 100 05/19/17 10:01 108 126/83 (94) 100 05/19/17 10:00 111 100 05/19/17 10:00 112 16 129/78 (95) 97 Mechanical Ventilator 100 05/19/17 09:59 119 137/81 (99) 100 05/19/17 09:58 129 129/78 (98) 98 05/19/17 09:57 138 97 05/19/17 09:56 119 100/67 (73) 97 05/19/17 09:55 113 97 05/19/17 08:00 Mechanical Ventilator 80 05/19/17 08:00 100 05/19/17 08:00 96 High Flow Oxygen 100 Mechanical Ventilator 05/19/17 08:00 36.3 128 16 128/93 (105) 95 Mechanical Ventilator 100 05/19/17 07:25 100 05/19/17 06:40 156 148/86 05/19/17 06:22 92 100 05/19/17 04:00 36.7 109 37 148/94 (112) 90 High Flow Oxygen 50.0 50 CPAP 05/19/17 04:00 High Flow Oxygen 50.0 50 05/19/17 04:00 99 24 90 Nasal Cannula 50.0 50 05/19/17 00:00 36.7 95 26 129/86 (100) 94 CPAP 5.0 05/19/17 00:00 94 CPAP 5.0 05/18/17 23:29 91 90 5.0 05/18/17 23:28 91 18 90 BiPAP/CPAP 5.0 05/18/17 22:25 105 95 5.0 05/18/17 20:02 37.2 101 23 120/70 (87) 94 High Flow Oxygen 40.0 30 05/18/17 20:00 94 High Flow Oxygen 40.0 30 Physical Exam General Appearance: no apparent distress (lying in bed at 30 degrees, sedated, intubated) Eyes: + pertinent finding (eyes closed) ENT: + pertinent finding (ET tube in place, OGT in place) Neck: trachea midline Respiratory/Chest: no respiratory distress, no accessory muscle use, + pertinent finding (diffuse rhonchi and crackles although imporved from previous) Cardiovascular: regular rate, rhythm, no edema, + systolic murmur (3/6 at RUSB ) Abdomen: normal bowel sounds, non tender, soft Extremities: no pedal edema Neurologic/Psychiatric: + pertinent finding (sedated) Skin: warm/dry Laboratory Results Last 24 Hours Test 05/18/17 20:03 05/18/17 22:05 05/18/17 22:11 05/19/17 00:06 Bedside Glucose 117 mg/dl 114 mg/dl 103 mg/dl Troponin I 14.100 ng/ml Test 05/19/17 00:44 05/19/17 00:54 05/19/17 01:14 05/19/17 02:12 Activated Partial Thromboplast Time 50.5 SECONDS Partial Thromboplastin Ratio 1.9 Bedside Glucose 78 mg/dl 119 mg/dl 105 mg/dl Test 05/19/17 03:12 05/19/17 04:07 05/19/17 05:07 05/19/17 05:09 Bedside Glucose 119 mg/dl 118 mg/dl 148 mg/dl White Blood Count 22.55 K/uL Red Blood Count 3.10 M/uL Hemoglobin 10.4 g/dL Hematocrit 31.6 % Mean Corpuscular Volume 101.9 fL Mean Corpuscular Hemoglobin 33.5 pg Mean Corpuscular Hemoglobin Concent 32.9 g/dl Platelet Count 230 K/uL Mean Platelet Volume 9.7 fL Neutrophils (%) (Auto) 96.1 % Lymphocytes (%) (Auto) 1.0 % Monocytes (%) (Auto) 2.6 % Eosinophils (%) (Auto) 0.0 % Basophils (%) (Auto) 0.0 % Neutrophils # (Auto) 21.67 K/uL Lymphocytes # (Auto) 0.23 K/uL Monocytes # (Auto) 0.58 K/uL Eosinophils # (Auto) 0.00 K/uL Basophils # (Auto) 0.01 K/uL RDW Standard Deviation 53.7 fL RDW Coefficient of Variation 14.4 % Immature Granulocyte % (Auto) 0.3 % Immature Granulocyte # (Auto) 0.06 K/uL Sodium Level 135 mmol/L Potassium Level 3.6 mmol/L Chloride Level 97 mmol/L Carbon Dioxide Level 25 mmol/L Anion Gap 13.0 mmol/L Blood Urea Nitrogen 42 mg/dl Creatinine 8.09 mg/dl Est Creatinine Clear Calc Drug Dose 11.2 ml/min Estimated GFR () 8.0 Estimated GFR (Non- 6.9 BUN/Creatinine Ratio 5.2 Random Glucose 156 mg/dl Calcium Level 8.6 mg/dl Total Bilirubin 1.0 mg/dl Direct Bilirubin 0.2 mg/dl Aspartate Amino Transf (AST/SGOT) 51 U/L Alanine Aminotransferase (ALT/SGPT) 26 U/L Alkaline Phosphatase 136 U/L Troponin I 11.700 ng/ml Total Protein 7.3 gm/dl Albumin 2.9 gm/dl Random Vancomycin Level 23.2 mcg/ml Test 05/19/17 05:50 05/19/17 06:24 05/19/17 06:50 05/19/17 07:37 Blood Gas Sample Site R Brachial R Brachial Bedside Blood Gas pH (LAB) 7.22 7.19 Bedside Blood Gas pCO2 (LAB) 65 mmHg 74 mmHg Bedside Blood Gas pO2 (LAB) 55 mmHg 89 mmHg Bedside Blood Gas HCO3 (LAB) 27 meq/L 28 meq/L Bedside Blood Gas Total CO2 29 mEq/l 30 mEq/l Bedside Blood Gas Base Excess (LAB) -1.0 meq/L 0.0 meq/L Bedside Blood Gas O2 Saturation 82.0 % 94.0 % Carl Test NA NA Oxygen Delivery Device BIPAP BIPAP Bedside Oxygen Rate (breaths/min) 34 31 Bedside FiO2 0 % 100 % Blood Gas IPAP 14 Bedside Glucose 196 mg/dl 143 mg/dl Test 05/19/17 08:31 05/19/17 09:26 05/19/17 09:28 05/19/17 10:31 Bedside Glucose 151 mg/dl 173 mg/dl 179 mg/dl Blood Gas Sample Site R Brachial Bedside Blood Gas pH (LAB) 7.33 Bedside Blood Gas pCO2 (LAB) 48 mmHg Bedside Blood Gas pO2 (LAB) 60 mmHg Bedside Blood Gas HCO3 (LAB) 25 meq/L Bedside Blood Gas Total CO2 27 mEq/l Bedside Blood Gas Base Excess (LAB) -1.0 meq/L Bedside Blood Gas O2 Saturation 89.0 % Carl Test NA Oxygen Delivery Device Ventilator Bedside Oxygen Rate (breaths/min) 16 Blood Gas Minute Ventilation 14.1 Bedside FiO2 80 % Blood Gas Tidal Volume 550 Blood Gas PEEP 10 Test 05/19/17 11:28 05/19/17 12:32 05/19/17 13:26 05/19/17 14:43 Bedside Glucose 175 mg/dl 177 mg/dl 179 mg/dl Troponin I 16.800 ng/ml Assessment and Plan This patient is a 51 yr old male with past medical history of DMI with neuropathy, excessive dynamic airway collapse and chronic bronchiectasis, on CPAP nocturnally, PAD s/p left and right foot toe amputation and right femoropopliteal graft, HTN, chronic diastolic CHF, hypothyroidism, COPD and previous smoker, mood disorder and dyslipidemia. Patient was recently discharged from the hospital 10 days prior after being treated for HCAP, he received Zyvox and meropenem 5 days when he was in the hospital and was discharged on doxycycline and tapering dose of prednisone. Presented to the ED with septic shock and shortness of breath shortly after receiving hemodialysis. He was found to have acute on chronic hypoxic respiratory failure with tachypnea and increased oxygen requirement at 4 L, sepsis, pneumonia in the left lower lobe, and with septic shock and profound hypotension requiring admission to the intensive care unit for vasopressors. He improved and was transferred out of ICU the evening of 05/18, but overnight he decompensated again from a respiratory standpoint and was transferred back to ICU where he was intubated for acute on chronic hypercarbic and hypoxic respiratory failure. Acute on chronic hypercarbic and hypoxic respiratory failure/sepsis and septic shock/HCAP LLL/EDAC/COPD -worsening, infiltrates worsened. Now intubated. S/p bronchoscopy in ICU with copious allen secretions lavaged, cultures taken. Back on vasopressors. Prognosis not good given significant underlying lung disease, presumed CAD, DMI. Family aware of poor prognosis after d/w Heat Seal Operator and Father is the designated decision maker. Changed to DNR today. Continues on broad-spectrum antibiotics, Leukocytosis worsening but was on steroids. -cefepime and Vanco now discontinued, neg MRSA nasal swab -continues now on Levaquin, Imipenem, and Caspofungin, appreciate ID consult -Appreciate mold designer management -Appreciate pulmonology consultation -Continue bronchodilators -continue IV steroids -follow sputum, BAL,and Blood Cxs -Follow CBC -on IV thiamine and Vit C for severe sepsis Elevated troponin/Presumed underlying CAD-suspect demand ischemia in the setting of profound hypotension. Troponin was normal initially and has since peaked at 19. Trop trended downward, now back up again in setting of recurrent shock. He had no chest pain when was awake previously. Had the exact same presentation 2 weeks ago during hospitalization. ECGs with nonspecific ST changes in the inferior leads ECHO with normal LV function, difficult to assess for WMAs, moderate -continue heparin drip and continue to trend troponin -Consult cardiology appreciated -Continue Plavix, statin -holding metoprolol for hypotension Chronic diastolic congestive heart failure-stable, volume status to be managed with dialysis -Holding home Lasix for now ESRD on HD every Tuesday, last dialyzed on 05/17/Anemia of chronic renal disease -Appreciate nephrology consultation for inpatient dialysis management-could not tolerate HD today due to hypotension -Follow PRP, CBC -Continue binders -Receiving Procrit here Insulin-dependent diabetes mellitus type 1 since childhood, controlled with HgbA1C 6.6%, with hyperglycemia-normally is on insulin pump at home but has been having great difficulty managing and has turned the basal rate off in the last week and is only doing boluses. -On insulin drip here and will continue this throughout hospitalization with pharmacy management Hypertension/dyslipidemia/Peripheral vascular disease-hypotension as above -holding metoprolol as above -Continue Plavix, statin Hypothyroidism-TSH was 1.11 in the last month -Continue levothyroxine home dose Peripheral neuropathy-stable -Continue gabapentin Mood disorder/normal grieving over loss of his 1 week ago -Consider psychiatric consult when awake -Continue bupropion Prophylaxis-heparin drip Disposition-remains in critical condition in ICU DNR Critical care time spent 35 minutes evaluating, interpreting studies, discussing with specialists, and medical decision making
[2017-05-19] MEDS: LEVOFLOXACIN / D5W 500 MG in PREMIXED IN D5W 100 ML IV SCH (20:03)
[2017-05-19] MEDS: ATORVASTATIN 40 MG TAB PO SCH (20:42)
[2017-05-19] MEDS: BuPROPion SR 100 MG TABCR PO SCH (20:42)
[2017-05-19] MEDS: IMIPENEM/CILASTATIN IV 500 MG in D5W 100ML IV SCH (21:20)
[2017-05-19] MEDS ORDERED: ROCURONIUM BROMIDE 10 MG/ML 10 ML VIAL IV ONE (21:31)
[2017-05-19] MEDS ORDERED: ETOMIDATE 2 MG/ML 20 ML VIAL IV ONE (21:31)
[2017-05-19] MEDS: INSULIN REGULAR 250 UNITS in SODIUM CHLORIDE 0.9% 250ML 250 ML IV SCH ×3 (22:06→22:09)
[2017-05-20] VITALS (43 sets, daily range): BP systolic 102–142; BP diastolic 67–93; PULSE 66–84; TEMP 36–36.8; O2SAT 75–100; Ht 177.8 cm; Wt 91.3 kg
[2017-05-20] MEDS: FENTANYL CITRATE INJ 50 MCG/1 ML 2 ML VIAL IV PRN ×5 (02:57→16:41)
[2017-05-20] MEDS: MIDAZOLAM HCL 1 MG/ML 2ML VIAL IV PRN ×4 (02:59→23:08)
[2017-05-20] MEDS: NOREPINEPHRINE BIT INJ 8 MG in DEXTROSE 5% 500ML 500 ML IV PRN (02:59)
[2017-05-20] MEDS: HEPARIN 25,000 UNIT/500ML D5W 500 ML IV PRN (05:32)
[2017-05-20] MEDS: METHYLPREDNISOLONE IV 40 MG in SYRINGE 0 ML IV SCH ×3 (05:32→20:54)
[2017-05-20] MEDS: LEVOTHYROXINE 112 MCG TAB PO SCH (05:33)
[2017-05-20] MEDS: ASCORBIC ACID INJ 1,500 MG in NSS 100 ML IV SCH ×4 (05:33→23:08)
[2017-05-20 06:27] LABS: HEMATOCRIT 27.8 % (42-52); HEMOGLOBIN 9.1 g/dL (14.0-18.0); IG# 0.05 K/uL (0.00-0.02); LYMPH % 1.7 %; MEAN CELL VOLUME 103.3 fL (80-100); MEAN CORPUSCULAR HEMOGLOBIN 33.8 pg (25-34); MEAN CORPUSCULAR HGB CONC 32.7 g/dl (32-36); MEAN PLATELET VOLUME 10.2 fL (7.4-10.4); MONO % 2.4 %; MONO ABS # 0.29 K/uL (0.11-0.59); NEUT % 95.5 %; PLATELET COUNT 154 K/uL (130-400); RED CELL DISTRIBUTION WIDTH CV 14.4 % (11.5-14.5); RED CELL DISTRIBUTION WIDTH SD 53.9 fL (36.4-46.3); WHITE BLOOD COUNT 12.04 K/uL (4.8-10.8)
[2017-05-20] MEDS: VASOPRESSIN INJ 50 UNITS in SODIUM CHLORIDE 0.9% 500ML 500 ML IV SCH (06:42)
[2017-05-20 06:58] LABS: CALCIUM 7.8 mg/dl (8.5-10.1)
[2017-05-20 07:00] LABS: CREATININE 9.3 mg/dl (0.60-1.40); POTASSIUM 4.4 mmol/L (3.5-5.1)
[2017-05-20 07:01] LABS: TOTAL PROTEIN 5.9 gm/dl (6.4-8.2)
[2017-05-20] MEDS: SEVELAMER HYDROCH 800 MG TAB PO SCH ×4 (07:15→16:30)
--- NOTE | 2017-05-20 07:15 | DIAGNOSTIC IMAGING REPORT ---
CHEST ONE VIEW PORTABLE CLINICAL HISTORY: Respiratory Failure COMPARISON STUDY: 05/19/2017 FINDINGS: There is a nasogastric tube which passes into the stomach. There is an endotracheal tube positioned approximate 5.5 cm above the bj. There is a right internal jugular central venous catheter which terminates within the superior vena cava. There are left lower lobe airspace opacities with air bronchograms. There is been slight improvement in the bilateral perihilar airspace opacities.[ IMPRESSION: 1. Persistent left lower lobe pulmonary consolidation with air bronchograms 2. Slight interval improvement in the bilateral perihilar airspace opacities Electronically signed by: Issac Harrell M.D. 05/20/2017 7:13 AM Dictated Date/Time: 05/20/2017 7:12 AM
[2017-05-20 07:17] LABS: PHOSPHORUS 7.5 mg/dl (2.5-4.9)
[2017-05-20] MEDS: LEValbuterol HFA 15GM INHALER INH SCH ×3 (07:47→23:08)
[2017-05-20] MEDS: INSULIN ASPART 100 UNITS/ML 3 ML PEN SC SCH ×4 (08:00→20:55)
[2017-05-20] MEDS: BREO ELLIPTA: ORDER AWAITING ACTION SCH ×3 (08:00→23:41)
[2017-05-20] MEDS: CLOPIDOGREL BISULFATE 75 MG TAB PO SCH (08:01)
[2017-05-20] MEDS: LACTOBACILLUS ACIDOPHILUS (FLORANEX) TAB PO SCH ×3 (08:01→17:55)
[2017-05-20] MEDS: GABAPENTIN 100 MG CAP PO SCH ×2 (08:03→20:56)
[2017-05-20] MEDS: CASPOFUNGIN INJ 50 MG in SODIUM CHLORIDE 0.9% 250ML 250 ML IV SCH (08:05)
[2017-05-20 08:24] LABS: PTT PATIENT > 300.0 SECONDS (21.0-31.0)
[2017-05-20] MEDS ORDERED: EPOETIN ALFA 10,000 UNITS/ML VIAL IV. SCH (10:00)
[2017-05-20] MEDS ORDERED: HEPARIN SOD (PORCINE) 1000 UNIT/ML 10 ML VIAL IV SCH (10:00)
[2017-05-20 10:11] LABS: PTT PATIENT 159.2 SECONDS (21.0-31.0)
--- NOTE | 2017-05-20 10:43 | Nephrology Progress Note ---
Nephrology Progress Note Date of Service May 20, 2017. Chief Complaint ESRD Subjective Mr. Clark was seen & examined in the ICU this morning. His brother was present at bedside. Mr. Clark was awake and appeared comfortable on the ventilator. SBP has improved to the low 100's off pressor support. FiO2 has been reduced to 35% and patient is oxygenating well. Bronchoscopy yesterday revealed copious secretions. Cultures are pending. Patient remains on broad spectrum antibiotics and empiric antifungal therapy. Review of Systems Unable to participate in ROS Vital Signs Last 8 Hrs Date Time Temp Pulse Resp B/P (MAP) Pulse Ox O2 Delivery O2 Flow Rate FiO2 05/20/17 07:47 35 05/20/17 06:01 67 17 110/71 (89) 98 05/20/17 05:31 72 21 102/67 (78) 98 05/20/17 05:16 35 05/20/17 05:01 73 17 117/77 (88) 96 05/20/17 04:32 80 17 107/69 (80) 75 05/20/17 04:01 72 19 103/68 (79) 98 05/20/17 04:00 36.7 05/20/17 04:00 35 05/20/17 04:00 97 Mechanical Ventilator 35 05/20/17 03:31 70 20 121/75 (88) 98 05/20/17 03:01 72 17 107/74 (79) 95 05/20/17 02:31 73 19 108/71 (89) 98 Last Recorded Weight Weight (Kilograms): 87.300 Physical Exam General Appearance: + pertinent finding (acutely ill appearing, requires mechanical ventilation) Head: normocephalic, atraumatic Eyes: PERRL, EOMI Neck: no adenopathy Respiratory/Chest: + rhonchi Cardiovascular: regular rate, rhythm Abdomen/GI: normal bowel sounds, non tender, soft Extremities/Musculoskelatal: no pedal edema, + pertinent finding (L arm AVF w/ soft bruit) Neurologic/Psych: alert Family History FH: heart disease Negative for CKD / ESRD Social History Smoking Status: Current every day smoker Drug Use: none Marital Status: Housing Status: lives with family Occupation: disabled . Medically disabled. Former smoker (Quit 2013) Laboratory Results Past 24 Hours 05/20/17 05:47 Red Blood Count 2.69, Mean Corpuscular Volume 103.3, Mean Corpuscular Hemoglobin 33.8, Mean Corpuscular Hemoglobin Concent 32.7, Mean Platelet Volume 10.2, Neutrophils (%) (Auto) 95.5, Lymphocytes (%) (Auto) 1.7, Monocytes (%) ( Auto) 2.4, Eosinophils (%) (Auto) 0.0, Basophils (%) (Auto) 0.0, Neutrophils # ( Auto) 11.50, Lymphocytes # (Auto) 0.20, Monocytes # (Auto) 0.29, Eosinophils # ( Auto) 0.00, Basophils # (Auto) 0.00 05/20/17 05:47 Test 05/19/17 10:31 05/19/17 11:28 05/19/17 12:32 05/19/17 13:26 Bedside Glucose 179 mg/dl (70-99) 175 mg/dl (70-99) 177 mg/dl (70-99) 179 mg/dl (70-99) Test 05/19/17 14:43 05/19/17 15:25 05/19/17 17:41 05/19/17 18:24 Troponin I 16.800 ng/ml (0-0.045) Bedside Glucose 168 mg/dl (70-99) 251 mg/dl (70-99) 254 mg/dl (70-99) Test 05/19/17 19:36 05/19/17 20:46 05/19/17 21:14 05/19/17 21:23 Bedside Glucose (other) 254 mg/dl (70-99) 246 mg/dl (70-99) 243 mg/dl (70-99) Troponin I 17.100 ng/ml (0-0.045) Test 05/19/17 23:29 05/20/17 01:36 05/20/17 03:39 05/20/17 05:15 Bedside Glucose (other) 234 mg/dl (70-99) 202 mg/dl (70-99) 176 mg/dl (70-99) Blood Gas Sample Site R Brachial Bedside Blood Gas pH (LAB) 7.31 (7.35-7.45) Bedside Blood Gas pCO2 (LAB) 52 mmHg (35-46) Bedside Blood Gas pO2 (LAB) < 32 mmHg (80-95) Bedside Blood Gas HCO3 (LAB) 27 meq/L (19-24) Bedside Blood Gas Total CO2 28 mEq/l (24-31) Bedside Blood Gas Base Excess (LAB) 0.0 meq/L (-9-1.8) Bedside Blood Gas O2 Saturation 45.0 % (90-95) Carl Test NA Test 05/20/17 05:19 05/20/17 05:35 05/20/17 05:47 05/20/17 07:40 Blood Gas Sample Site R Radial Bedside Blood Gas pH (LAB) 7.34 (7.35-7.45) Bedside Blood Gas pCO2 (LAB) 47 mmHg (35-46) Bedside Blood Gas pO2 (LAB) 71 mmHg (80-95) Bedside Blood Gas HCO3 (LAB) 25 meq/L (19-24) Bedside Blood Gas Total CO2 27 mEq/l (24-31) Bedside Blood Gas Base Excess (LAB) -1.0 meq/L (-9-1.8) Bedside Blood Gas O2 Saturation 93.0 % (90-95) Carl Test Pass Oxygen Delivery Device Ventilator Bedside Oxygen Rate (breaths/min) 16 Blood Gas Minute Ventilation 7.6 Bedside FiO2 35 % Blood Gas Tidal Volume 450 Blood Gas PEEP 10 Bedside Glucose (other) 159 mg/dl (70-99) White Blood Count 12.04 K/uL (4.8-10.8) Red Blood Count 2.69 M/uL (4.7-6.1) Hemoglobin 9.1 g/dL (14.0-18.0) Hematocrit 27.8 % (42-52) Mean Corpuscular Volume 103.3 fL (80-100) Mean Corpuscular Hemoglobin 33.8 pg (25-34) Mean Corpuscular Hemoglobin Concent 32.7 g/dl (32-36) Platelet Count 154 K/uL (130-400) Mean Platelet Volume 10.2 fL (7.4-10.4) Neutrophils (%) (Auto) 95.5 % Lymphocytes (%) (Auto) 1.7 % Monocytes (%) (Auto) 2.4 % Eosinophils (%) (Auto) 0.0 % Basophils (%) (Auto) 0.0 % Neutrophils # (Auto) 11.50 K/uL (1.4-6.5) Lymphocytes # (Auto) 0.20 K/uL (1.2-3.4) Monocytes # (Auto) 0.29 K/uL (0.11-0.59) Eosinophils # (Auto) 0.00 K/uL (0-0.5) Basophils # (Auto) 0.00 K/uL (0-0.2) RDW Standard Deviation 53.9 fL (36.4-46.3) RDW Coefficient of Variation 14.4 % (11.5-14.5) Immature Granulocyte % (Auto) 0.4 % Immature Granulocyte # (Auto) 0.05 K/uL (0.00-0.02) Anion Gap 14.0 mmol/L (3-11) Est Creatinine Clear Calc Drug Dose 9.7 ml/min Estimated GFR () 6.8 Estimated GFR (Non- 5.9 BUN/Creatinine Ratio 5.6 (10-20) Calcium Level 7.8 mg/dl (8.5-10.1) Phosphorus Level 7.5 mg/dl (2.5-4.9) Magnesium Level 2.1 mg/dl (1.8-2.4) Total Bilirubin 0.5 mg/dl (0.2-1) Direct Bilirubin 0.2 mg/dl (0-0.2) Aspartate Amino Transf (AST/SGOT) 36 U/L (15-37) Alanine Aminotransferase (ALT/SGPT) 20 U/L (12-78) Alkaline Phosphatase 107 U/L (45-117) Troponin I 11.800 ng/ml (0-0.045) Total Protein 5.9 gm/dl (6.4-8.2) Albumin 2.0 gm/dl (3.4-5.0) Activated Partial Thromboplast Time > 300.0 SECONDS Partial Thromboplastin Ratio > 11.0 Test 05/20/17 09:25 05/20/17 10:00 Activated Partial Thromboplast Time 159.2 SECONDS (21.0-31.0) Partial Thromboplastin Ratio 6.1 Allergies Coded Allergies: Codeine (Verified Allergy, Intermediate, NAUSEA AND VOMITING, 05/07/17) QUESTIONABLE ALLERGY, STILL QUESTIONABLE BUT MD Villafuerte/David SHONDA WITH COD 02/20/17 Tigecycline (Verified Allergy, Mild, ?RASH, 05/07/17) Clindamycin (Verified Allergy, Unknown, Unknown, 05/07/17) Penicillins (Verified Allergy, Unknown, PT HAS HAD MEFOXIN W/OUT A PROBLEM , 05/07/17) HAD MEFOXIN W/O PROBLEM Ciprofloxacin (Verified Adverse Reaction, Intermediate, nausea,vomiting, generalized weakness, 05/07/17) Morphine (Verified Adverse Reaction, Intermediate, TREMBLING,NAUSEA AND VOMITING, 05/07/17) Opioid Analgesics (Verified Adverse Reaction, Intermediate, "ALL RX PAIN MEDS CAUSE SEVERE NAUSEA", 05/07/17) Levofloxacin (Verified Adverse Reaction, Mild, Cipro/Levaquin (IV & po) = N & V, 05/07/17) Oxycodone (Verified Adverse Reaction, Unknown, N/V/D, 05/07/17) SPOKE WITH PATIENT ON 07/29/15, DOES NOT REMEMBER ANY DIFFICULTY BREATHING JUST HIT HIM HARD. Medications Current Inpatient Medications Medications (Trade) Dose Ordered Sig/Etta Route Start Time Stop Time Status Last Admin Dose Admin Miscellaneous Information (Consult) 1 ea UD PRN N/A 05/17/17 19:00 06/16/17 18:59 Atorvastatin Calcium (Lipitor Tab) 40 mg HS PO 05/17/17 21:00 06/16/17 20:59 05/19/17 20:42 40 MG Bupropion HCl (Wellbutrin-Sr Tab) 200 mg QPM PO 05/17/17 21:00 06/16/17 20:59 05/19/17 20:42 200 MG Clopidogrel Bisulfate (plAVix TAB) 75 mg Q2D@0900 PO 05/18/17 09:00 06/17/17 08:59 05/20/17 08:01 75 MG Gabapentin (Neurontin Cap) 100 mg BID PO 05/17/17 21:00 06/16/17 20:59 05/20/17 08:03 100 MG Albuterol/ Ipratropium (Duoneb) 3 ml QID PRN INH 05/17/17 20:15 06/16/17 20:14 05/19/17 04:00 3 ML Levothyroxine Sodium (Synthroid Tab) 112 mcg DAILYBB PO 05/18/17 06:00 06/17/17 05:59 05/20/17 05:33 112 MCG Miscellaneous Information (Order Awaiting Action) 1 ea QS N/A 05/18/17 00:00 06/17/17 00:00 Sevelamer HCl (Renagel Tab) 1,600 mg TIDM PO 05/18/17 07:15 06/17/17 07:14 05/18/17 15:56 1,600 MG Lactobacillus Acidophilus (Floranex Tab) 4 tab TIDM PO 05/18/17 07:15 06/17/17 07:59 05/20/17 08:01 4 TAB Acetaminophen (Tylenol Tab) 650 mg Q4H PRN PO 05/17/17 20:15 06/16/17 20:14 Glucose (Glucose 40% Gel) 15-30 GRAMS 15 GRAMS... UD PRN PO 05/17/17 20:15 06/16/17 20:14 Glucose (Glucose Chew Tab) 4-8 Tablets 4 Tabl... UD PRN PO 05/17/17 20:15 06/16/17 20:14 Dextrose (Dextrose 50% 50ML Syringe) 25-50ML OF 50% DW IV FOR... UD PRN IV 05/17/17 20:15 06/16/17 20:14 05/19/17 01:05 25 ML Glucagon (Glucagon Inj) 1 mg UD PRN SQ 05/17/17 20:15 06/16/17 20:14 Miscellaneous Information (Consult Glycemic Management Pharmacy) 1 ea UD PRN N/A 05/17/17 20:52 06/16/17 20:51 Levofloxacin 500 mg/Prmx 100 ml @ 100 mls/hr Q48H IV 05/19/17 20:00 05/24/17 19:59 05/19/17 20:03 100 MLS/HR Norepinephrine Bitartrate 8 mg/ Dextrose 508 ml @ 0 mls/hr Q0M PRN IV 05/17/17 20:31 06/16/17 23:59 05/20/17 02:59 9.6 MLS/HR Insulin Human Regular 250 units/ Sodium Chloride 252.5 ml @ 0 mls/hr Q24H IV 05/17/17 22:45 06/16/17 22:44 05/19/17 22:09 1.3 MLS/HR Insulin Aspart (novoLOG ASPART) [facility] 05/18/17 08:00 06/17/17 07:59 05/18/17 17:14 5 UNITS Miscellaneous Information (Pending Order) 1 ea QS N/A 05/18/17 16:00 06/17/17 15:59 05/19/17 08:00 1 EA Heparin Sodium/ Dextrose 500 ml @ 28 mls/hr [id number] PRN IV 05/18/17 18:15 06/17/17 18:14 05/20/17 05:32 28 MLS/HR Midazolam HCl (Versed Inj) 2 mg Q2H PRN IV 05/19/17 07:15 06/18/17 07:14 05/20/17 02:59 2 MG Fentanyl Citrate (Fentanyl Inj) 50 mcg Q2H PRN IV 05/19/17 07:15 06/02/17 07:14 05/20/17 07:59 50 MCG Ioversol (Optiray 320) 100 ml UD PRN IV 05/19/17 08:15 05/23/17 08:14 Imipenem/ Cilastatin Sodium 500 mg/Dextrose 110 ml @ 110 mls/hr Q12@1000,2200 IV 05/19/17 22:00 05/26/17 21:59 05/19/17 21:20 110 MLS/HR Caspofungin 50 mg/ Sodium Chloride 260 ml @ 260 mls/hr DAILY@0900 IV 05/20/17 09:00 06/19/17 08:59 05/20/17 08:05 260 MLS/HR Thiamine HCl 200 mg/Sodium Chloride 52 ml @ 210 mls/hr Q12@1000,2200 IV 05/19/17 11:00 05/22/17 22:15 05/19/17 21:21 210 MLS/HR Ascorbic Acid 1500 mg/Sodium Chloride 103 ml @ 206 mls/hr Q6 IV 05/19/17 12:00 05/23/17 06:29 05/20/17 05:33 206 MLS/HR Methylprednisolone Sodium Succinate 40 mg/Syringe 0.64 ml @ 1.5 mls/min Q6 IV 05/19/17 12:00 06/18/17 11:59 05/20/17 05:32 1.5 MLS/MIN Levalbuterol (Xopenex Hfa Inhaler) 4 puffs Q8R INH 05/19/17 16:00 06/18/17 15:59 05/20/17 07:47 4 PUFFS Heparin Sodium (Porcine) (Heparin Iv Bolus) 2,000 unit TODAY@1000 IV 05/20/17 10:00 05/20/17 23:59 Heparin Sodium (Porcine) (Heparin Iv Bolus) 500 unit TODAY@1000,1100 IV 05/20/17 10:00 05/20/17 23:59 Epoetin Diaz (Procrit Inj) 10,000 units TODAY@1000 IV. 05/20/17 10:00 05/20/17 23:59 Impression (1) End-stage renal disease on hemodialysis (2) Bronchitis (3) Tracheomalacia (4) Diabetes mellitus (5) Anemia Patient admitted to the hospital w/ recurrent bronchitis. He has a history of severe tracheal malacia with chronic bronchiectasis. He tested negative for Influenza. He is now on broad spectrum antibiotics. Blood cultures and Mycoplasma testing are pending. CXR is negative for infiltrates. PMH - ESRD due to diabetic nephropathy on IHD since 12/25 (HD TTS at [facility] - 4 hrs 2K 2Ca F180NR Qb 450 cc/min HCO3 34 EDW 83 kg), IDDM, HTN , PVD s/p R femoral artery bypass, anemia, hypothyroidism, hypercholesterolemia , bipolar disorder, COPD w/ severe tracheomalacia and chronic bronchiectasis ( quit smoking ~ 2013). Recommendations END STAGE RENAL DISEASE: -- HD today for correction of electrolyte balance and azotemia. No UF due to relative hypotension -- HD orders entered into EMR and HD RN notified -- Protect L arm AVF for HD ID: -- Imipenem, Levaquin and Caspofungin doses are appropriate for ESRD -- Await blood and Mycoplasma cultures -- Patient underwent bronchoscopy yesterday. Await bronchoscopy culture results. ANEMIA: -- Low grade. Will monitor and provide GINO w/ HD 30 minutes critical care time provided. This was necessary to review records, examine patient, discuss management w/ ICU team and coordinate dialysis services.
[2017-05-20 11:04] LABS: PTT PATIENT 98.9 SECONDS (21.0-31.0)
[2017-05-20] MEDS: HEPARIN SOD (PORCINE) 1000 UNIT/ML 10 ML VIAL IV SCH ×2 (11:46→12:46)
[2017-05-20] MEDS: THIAMINE HCL INJ 200 MG in NSS 50ML IV SCH ×2 (12:13→22:35)
--- NOTE | 2017-05-20 12:52 | Critical Care Progress Note ---
Critical Care Progress Note Date of Service May 20, 2017. Critical Care Progress Note I had an extensive discussion with the patient's father and brother regarding prognosis and goals of care this was done in conjunction with Alley Mcgill, the patient is unable to participate in his medical decisions secondary to intubation, critical illness, acute respiratory failure, lack of capacity. Patient's father states the patient has not had the ability to rationalizes decisions for an extended period. The patient is of the belief that he will live forever discussing with the patient's brother, the patient has made several statements over the last several months that the patient is extremely tired of all the medical interventions. Both the brother and father agree the patient is of the believe he needs to be present for his son, however he does not want to undergo any sort of medical interventions, attempts to quantify prognosis and future medical decisions have been unsuccessful in family discussions. Patient's was a previously significant caregiver to him. Now that she has , the father strongly believes his son cannot complete needed activities of daily living such as managing finances, attending to his medical needs and the like. The father believes regardless if the patient was able to be discharged he would still remain unsafe to be living independently. I am of agreement that the patient is not exhibiting clear insight and certainly question the patient's safety and ability to live independently. Placement is just 1 of the issues discussed today. Regarding long-term goals, the patient's father states the 2 biggest things his son would want to attend would be his 's next week, and his son's graduation in July. With regards to prognosis, the patient's respiratory failure has improved and is on minimal vent settings. However, the patient has significant anatomical pathology and his ability to clear his secretions is greatly limited secondary to his dynamic airway collapse. This is ultimately not correctable and runs a risk of airway occlusion attempting to clear his secretions and creates the perfect situation to allow for pneumonia. I discussed extubating the patient and possible need for reintubation should he have accumulation of his secretions and bronchiectasis which has been a long- standing issue. I discussed extubating the patient and not reintubating the patient as he states he is becoming tired of the long-term medical interventions and transition to comfort care only. I also discussed proceeding with tracheostomy which would allow for ease of secretion clearance, bronchoscopy, as well as facilitation of mechanical ventilation should the patient have acute hypoxic hypercarbic respiratory failure, albeit with an increased risk for pneumonia secondary to bypassing natural humidification systems. The father and brother are in agreement that the best course of action is to proceed with tracheostomy at this time as this would give him the highest likelihood of success in reaching both long-term goals. They understand that a tracheostomy can certainly be temporary and could be removed at any point should the decision to stop all medical interventions be made. I discussed the case with Dr. Francis Ojeda his primary courtesy car driver who is in agreement with the assessment. Patient's father provided consent for percutaneous tracheostomy and we will proceed with that procedure later today. Total time spent discussing prognosis, treatment options, and management 60 minutes
[2017-05-20] MEDS ORDERED: FENTANYL CITRATE INJ 50 MCG/1 ML 2 ML VIAL IV PRN (13:00)
[2017-05-20] MEDS ORDERED: MIDAZOLAM HCL 5 MG/ML 1 ML VIAL IV PRN (13:00)
[2017-05-20] MEDS ORDERED: VECURONIUM BROMIDE 10 MG VIAL IV PRN (13:00)
--- NOTE | 2017-05-20 13:15 | Pre Sedation Assessment ---
Pre Sedation Assessment General Date of Sedation: May 20, 2017. Vital Signs Past 12 Hours Date Time Temp Pulse Resp B/P (MAP) Pulse Ox O2 Delivery O2 Flow Rate FiO2 05/20/17 12:30 72 117/72 05/20/17 12:15 70 118/73 05/20/17 12:00 70 121/74 05/20/17 11:45 68 113/75 05/20/17 11:30 66 118/75 05/20/17 11:15 71 107/72 05/20/17 11:00 72 112/72 05/20/17 10:58 35 05/20/17 10:46 36.4 68 112/76 (88) 05/20/17 10:00 77 13 118/79 (92) 99 Mechanical Ventilator 35 05/20/17 08:00 36.7 74 17 117/77 (90) 100 Mechanical Ventilator 35 05/20/17 08:00 35 05/20/17 08:00 Mechanical Ventilator 35 05/20/17 07:47 35 05/20/17 06:01 67 17 110/71 (89) 98 05/20/17 05:31 72 21 102/67 (78) 98 05/20/17 05:16 35 05/20/17 05:01 73 17 117/77 (88) 96 05/20/17 04:32 80 17 107/69 (80) 75 05/20/17 04:01 72 19 103/68 (79) 98 05/20/17 04:00 36.7 05/20/17 04:00 35 05/20/17 04:00 97 Mechanical Ventilator 35 05/20/17 03:31 70 20 121/75 (88) 98 05/20/17 03:01 72 17 107/74 (79) 95 05/20/17 02:31 73 19 108/71 (89) 98 05/20/17 02:01 72 17 103/73 (93) 97 05/20/17 01:49 35 05/20/17 01:31 74 21 121/79 (88) 100 Review Cardiovascular: regular rate, rhythm, no edema, no gallop, no JVD, normal peripheral pulses Lungs: + rhonchi Pre-Sedation Airway Assessment Smoking Status: Former Smoker Hx of Sleep Apnea: No Hx of difficult intubation: No Short Thick Neck: No Thyro-mental Distance: > 3 Finger Breadths Oral Cavity: WNL Mallampati Classification: Class II ASA Classification: Class IV NPO Status Date of Last Intake of Fluids: May 19, 2017 Time of Last Intake of Fluids: 0100 Date of Last Intake of Solids: May 19, 2017 Time of Last Intake of Solids: 01:00 Procedure Planning Contraindications for Sedation: None (Patient with secure airway, current medical management in ICU) Current Medications Reviewed: Yes Notes The planned sedation has been discussed with the patient. Informed Consent was obtained by the patient's healthcare surrogate, father. I have identified the patient, determined the appropriateness of sedation and have assessed the patient immediately prior to the procedure. All medicine(s) and interventions are by my order.
--- NOTE | 2017-05-20 13:25 | Critical Care Progress Note ---
Critical Care Progress Note Date of Service May 20, 2017. ICU Day ICU Day Number: [address] Gutierrez Subjective No overnight events, ventilator and vasoactive medication wean through the night Objective Laboratory Data - as noted Physical Exam: General -no obvious distress Eyes - EOMI No icterus, ENT -the tracheal tube present Neck - Supple, trachea midline, no masses or lymphadenopathy, no no rash Lungs - No paradoxical chest wall movement, very coarse with rhonchi throughout , no wheezes or rales Heart - Reg rate and rhythm, Murmur present without rubs, clicks, or gallops appreciated Abdomen -soft nondistended Extremities - Edema present, pedal pulses intact, multiple missing toes, skin warm with normal peripheral perfusion Neuro - A alert Assessment & Plan PLAN: Resp: * Shortness of breath * Severe PNA: HAP * Continue Invanz, Vanco, and Levaquin at this time * Recent Hospitalization for PNA on Zyvox and Meropenem and d/c on Doxy * Monitor Troughs and QTc * Follow-up BAL results * Urine Legionella: Anuric, uncollected and canceled * Bronchodilators in place * Continue home regimen * Dr. stone following * Goal O2 Saturations >94% * Dynamic airway collapse, severe tracheomalacia * Planned trach percutaneous today Neuro/PSYCH * Continue home medications: Gabapentin, Sensipar, and Wellbutrin * Extensive discussion with patient and family regarding prognosis, treatment plan. * Will require extensive social work resources and placement CV: * Tachycardia: Resolved * Septic Shock 2/2 HAP * Hypotension resolved * Troponin elevated, similar to previous admission, possibly due to demand ischemia 2/2 hypotension. * Discontinuing heparin infusion * Cardiology consult in place * Last ECHO: EF 60% Grade 1 diastolic dysfunction * Continue home medications including: * Norvasc, Lipitor, Lopressor * Monitor on telemetry Fluids/Renal: * ESRD on HD, HD planned for today * Minimize fluids; Concentrate where possible ID: * Continue Abx: Invanz, caspofungin, Vanco, and Levaquin * Septic Shock: Hypotension resolved * Afebrile to date GI/Nutrition: * N.p.o. * Patient likely to be able to tolerate swallow study tomorrow, if he can tolerate trach with cuff deflated Heme: * DVT prophylaxis: 5000 heparin twice daily * Continue Pts Plavix Endocrine: * DM1 with hyperglycemia * Insulin infusion * Does have insulin pump; however, pt had it off when he came to the hospital * Hypothyroidism * Continue Synthroid 112mcg CODE STATUS: DO NOT RESUSCITATE in event of cardiac arrest I have personally spent 65 minutes of critical care time in the direct management of this patient. This is a life/limb threatening event. This includes time spent evaluating patient, direct bedside care, chart review, placing orders, interpretation of diagnostic studies, discussion with consultants, patient, and/or family members regarding treatment decisions, as well as other required patient management activities. This time is exclusive of all separately billable procedures, and teaching time and separate from and in addition to any other critical care service time. Consults & Procedures Consultants: Cardiology: Marv [facility] Health: Tian Pulmonology: Suzy Nephrology: Ruslan Data Medications: Current Inpatient Medications Medications (Trade) Dose Ordered Sig/Etta Route Start Time Stop Time Status Last Admin Dose Admin Miscellaneous Information (Consult) 1 ea UD PRN N/A 05/17/17 19:00 06/16/17 18:59 Atorvastatin Calcium (Lipitor Tab) 40 mg HS PO 05/17/17 21:00 06/16/17 20:59 05/19/17 20:42 40 MG Bupropion HCl (Wellbutrin-Sr Tab) 200 mg QPM PO 05/17/17 21:00 06/16/17 20:59 05/19/17 20:42 200 MG Clopidogrel Bisulfate (plAVix TAB) 75 mg Q2D@0900 PO 05/18/17 09:00 06/17/17 08:59 05/20/17 08:01 75 MG Gabapentin (Neurontin Cap) 100 mg BID PO 05/17/17 21:00 06/16/17 20:59 05/20/17 08:03 100 MG Albuterol/ Ipratropium (Duoneb) 3 ml QID PRN INH 05/17/17 20:15 06/16/17 20:14 05/19/17 04:00 3 ML Levothyroxine Sodium (Synthroid Tab) 112 mcg DAILYBB PO 05/18/17 06:00 06/17/17 05:59 05/20/17 05:33 112 MCG Miscellaneous Information (Order Awaiting Action) 1 ea QS N/A 05/18/17 00:00 06/17/17 00:00 Sevelamer HCl (Renagel Tab) 1,600 mg TIDM PO 05/18/17 07:15 06/17/17 07:14 05/18/17 15:56 1,600 MG Lactobacillus Acidophilus (Floranex Tab) 4 tab TIDM PO 05/18/17 07:15 06/17/17 07:59 05/20/17 08:01 4 TAB Acetaminophen (Tylenol Tab) 650 mg Q4H PRN PO 05/17/17 20:15 06/16/17 20:14 Glucose (Glucose 40% Gel) 15-30 GRAMS 15 GRAMS... UD PRN PO 05/17/17 20:15 06/16/17 20:14 Glucose (Glucose Chew Tab) 4-8 Tablets 4 Tabl... UD PRN PO 05/17/17 20:15 06/16/17 20:14 Dextrose (Dextrose 50% 50ML Syringe) 25-50ML OF 50% DW IV FOR... UD PRN IV 05/17/17 20:15 06/16/17 20:14 05/19/17 01:05 25 ML Glucagon (Glucagon Inj) 1 mg UD PRN SQ 05/17/17 20:15 06/16/17 20:14 Miscellaneous Information (Consult Glycemic Management Pharmacy) 1 ea UD PRN N/A 05/17/17 20:52 06/16/17 20:51 Levofloxacin 500 mg/Prmx 100 ml @ 100 mls/hr Q48H IV 05/19/17 20:00 05/24/17 19:59 05/19/17 20:03 100 MLS/HR Norepinephrine Bitartrate 8 mg/ Dextrose 508 ml @ 0 mls/hr Q0M PRN IV 05/17/17 20:31 06/16/17 23:59 05/20/17 02:59 9.6 MLS/HR Insulin Human Regular 250 units/ Sodium Chloride 252.5 ml @ 0 mls/hr Q24H IV 05/17/17 22:45 06/16/17 22:44 05/19/17 22:09 1.3 MLS/HR Insulin Aspart (novoLOG ASPART) [facility] 05/18/17 08:00 06/17/17 07:59 05/18/17 17:14 5 UNITS Miscellaneous Information (Pending Order) 1 ea QS N/A 05/18/17 16:00 06/17/17 15:59 05/19/17 08:00 1 EA Midazolam HCl (Versed Inj) 2 mg Q2H PRN IV 05/19/17 07:15 06/18/17 07:14 05/20/17 02:59 2 MG Fentanyl Citrate (Fentanyl Inj) 50 mcg Q2H PRN IV 05/19/17 07:15 06/02/17 07:14 05/20/17 12:23 50 MCG Ioversol (Optiray 320) 100 ml UD PRN IV 05/19/17 08:15 05/23/17 08:14 Imipenem/ Cilastatin Sodium 500 mg/Dextrose 110 ml @ 110 mls/hr Q12@1000,2200 IV 05/19/17 22:00 05/26/17 21:59 05/19/17 21:20 110 MLS/HR Caspofungin 50 mg/ Sodium Chloride 260 ml @ 260 mls/hr DAILY@0900 IV 05/20/17 09:00 06/19/17 08:59 05/20/17 08:05 260 MLS/HR Thiamine HCl 200 mg/Sodium Chloride 52 ml @ 210 mls/hr Q12@1000,2200 IV 05/19/17 11:00 05/22/17 22:15 05/20/17 12:13 210 MLS/HR Ascorbic Acid 1500 mg/Sodium Chloride 103 ml @ 206 mls/hr Q6 IV 05/19/17 12:00 05/23/17 06:29 05/20/17 05:33 206 MLS/HR Levalbuterol (Xopenex Hfa Inhaler) 4 puffs Q8R INH 05/19/17 16:00 06/18/17 15:59 05/20/17 07:47 4 PUFFS Heparin Sodium (Porcine) (Heparin Iv Bolus) 2,000 unit TODAY@1000 IV 05/20/17 10:00 05/20/17 23:59 Heparin Sodium (Porcine) (Heparin Iv Bolus) 500 unit TODAY@1000,1100 IV 05/20/17 10:00 05/20/17 23:59 Epoetin Diaz (Procrit Inj) 10,000 units TODAY@1000 IV. 05/20/17 10:00 05/20/17 23:59 Methylprednisolone Sodium Succinate 40 mg/Syringe 0.64 ml @ 1.5 mls/min Q8 IV 05/20/17 14:00 06/19/17 13:59 Heparin Sodium (Porcine) (Heparin Sq 5000 Unit/0.5ml) 5,000 unit BID SC 05/20/17 21:00 06/19/17 20:59 Fentanyl Citrate (Fentanyl Inj) 300 mcg PRN PRN IV 05/20/17 13:00 06/03/17 12:59 UNV Midazolam HCl (Versed Inj) 20 mg PRN PRN IV 05/20/17 13:00 06/19/17 12:59 UNV Vecuronium Ludowici (Vecuronium Lud[place]ici Inj) 10 mg NOW PRN IV 05/20/17 13:00 06/19/17 12:59 UNV Vital Signs: Date Time Temp Pulse Resp B/P (MAP) Pulse Ox O2 Delivery O2 Flow Rate FiO2 05/20/17 12:30 72 117/72 05/20/17 12:15 70 118/73 05/20/17 12:00 70 121/74 05/20/17 11:45 68 113/75 05/20/17 11:30 66 118/75 05/20/17 11:15 71 107/72 05/20/17 11:00 72 112/72 05/20/17 10:58 35 05/20/17 10:46 36.4 68 112/76 (88) 05/20/17 10:00 77 13 118/79 (92) 99 Mechanical Ventilator 35 05/20/17 08:00 36.7 74 17 117/77 (90) 100 Mechanical Ventilator 35 05/20/17 08:00 35 05/20/17 08:00 Mechanical Ventilator 35 05/20/17 07:47 35 05/20/17 06:01 67 17 110/71 (89) 98 05/20/17 05:31 72 21 102/67 (78) 98 05/20/17 05:16 35 05/20/17 05:01 73 17 117/77 (88) 96 05/20/17 04:32 80 17 107/69 (80) 75 05/20/17 04:01 72 19 103/68 (79) 98 05/20/17 04:00 36.7 05/20/17 04:00 35 05/20/17 04:00 97 Mechanical Ventilator 35 05/20/17 03:31 70 20 121/75 (88) 98 318 03:01 72 17 107/74 (79) 95 18 02:31 73 19 108/71 (89) 98 05/20/17 02:01 72 17 103/73 (93) 97 05/20/17 01:49 35 05/20/17 01:31 74 21 121/79 (88) 100 05/20/17 01:01 71 15 110/79 (85) 98 05/20/17 00:31 74 16 121/82 (95) 99 05/20/17 00:01 36.7 05/20/17 00:01 77 18 115/82 (89) 99 05/19/17 23:59 40 05/19/17 23:59 99 Mechanical Ventilator 40 05/19/17 23:31 93 18 118/78 (93) 95 05/19/17 23:31 40 05/19/17 23:01 79 18 125/80 (97) 99 05/19/17 22:31 83 17 123/79 (89) 99 05/19/17 22:30 83 16 123/79 (89) 99 05/19/17 22:01 86 16 126/80 (99) 98 05/19/17 21:31 86 16 126/83 (91) 99 05/19/17 21:01 87 16 129/85 (97) 99 05/19/17 20:31 89 16 134/85 (103) 99 05/19/17 20:29 50 05/19/17 20:01 95 15 129/85 (101) 99 05/19/17 20:00 36.7 05/19/17 20:00 50 05/19/17 20:00 99 Mechanical Ventilator 50 05/19/17 19:31 94 21 141/90 (103) 99 05/19/17 19:01 96 21 136/90 (110) 99 05/19/17 18:00 100 16 138/90 (106) 98 Mechanical Ventilator 50 05/19/17 17:42 60 05/19/17 16:00 36.6 100 16 128/82 (97) 98 Mechanical Ventilator 100 05/19/17 15:59 100 05/19/17 15:59 99 Mechanical Ventilator 100 05/19/17 14:49 60 05/19/17 14:00 118 16 120/81 (94) 94 Mechanical Ventilator 100 Laboratory Results: Last 24 Hours Test 05/19/17 13:26 05/19/17 14:43 05/19/17 15:25 05/19/17 17:41 Bedside Glucose 179 mg/dl 168 mg/dl 251 mg/dl Troponin I 16.800 ng/ml Test 05/19/17 18:24 05/19/17 19:36 05/19/17 20:46 05/19/17 21:14 Bedside Glucose 254 mg/dl Bedside Glucose (other) 254 mg/dl 246 mg/dl Troponin I 17.100 ng/ml Test 05/19/17 21:23 05/19/17 23:29 05/20/17 01:36 05/20/17 03:39 Bedside Glucose (other) 243 mg/dl 234 mg/dl 202 mg/dl 176 mg/dl Test 05/20/17 05:15 05/20/17 05:19 05/20/17 05:35 05/20/17 05:47 Blood Gas Sample Site R Brachial R Radial Bedside Blood Gas pH (LAB) 7.31 7.34 Bedside Blood Gas pCO2 (LAB) 52 mmHg 47 mmHg Bedside Blood Gas pO2 (LAB) < 32 mmHg 71 mmHg Bedside Blood Gas HCO3 (LAB) 27 meq/L 25 meq/L Bedside Blood Gas Total CO2 28 mEq/l 27 mEq/l Bedside Blood Gas Base Excess (LAB) 0.0 meq/L -1.0 meq/L Bedside Blood Gas O2 Saturation 45.0 % 93.0 % Carl Test NA Pass Oxygen Delivery Device Ventilator Bedside Oxygen Rate (breaths/min) 16 Blood Gas Minute Ventilation 7.6 Bedside FiO2 35 % Blood Gas Tidal Volume 450 Blood Gas PEEP 10 Bedside Glucose (other) 159 mg/dl White Blood Count 12.04 K/uL Red Blood Count 2.69 M/uL Hemoglobin 9.1 g/dL Hematocrit 27.8 % Mean Corpuscular Volume 103.3 fL Mean Corpuscular Hemoglobin 33.8 pg Mean Corpuscular Hemoglobin Concent 32.7 g/dl Platelet Count 154 K/uL Mean Platelet Volume 10.2 fL Neutrophils (%) (Auto) 95.5 % Lymphocytes (%) (Auto) 1.7 % Monocytes (%) (Auto) 2.4 % Eosinophils (%) (Auto) 0.0 % Basophils (%) (Auto) 0.0 % Neutrophils # (Auto) 11.50 K/uL Lymphocytes # (Auto) 0.20 K/uL Monocytes # (Auto) 0.29 K/uL Eosinophils # (Auto) 0.00 K/uL Basophils # (Auto) 0.00 K/uL RDW Standard Deviation 53.9 fL RDW Coefficient of Variation 14.4 % Immature Granulocyte % (Auto) 0.4 % Immature Granulocyte # (Auto) 0.05 K/uL Sodium Level 133 mmol/L Potassium Level 4.4 mmol/L Chloride Level 94 mmol/L Carbon Dioxide Level 25 mmol/L Anion Gap 14.0 mmol/L Blood Urea Nitrogen 52 mg/dl Creatinine 9.30 mg/dl Est Creatinine Clear Calc Drug Dose 9.7 ml/min Estimated GFR () 6.8 Estimated GFR (Non- 5.9 BUN/Creatinine Ratio 5.6 Random Glucose 153 mg/dl Calcium Level 7.8 mg/dl Phosphorus Level 7.5 mg/dl Magnesium Level 2.1 mg/dl Total Bilirubin 0.5 mg/dl Direct Bilirubin 0.2 mg/dl Aspartate Amino Transf (AST/SGOT) 36 U/L Alanine Aminotransferase (ALT/SGPT) 20 U/L Alkaline Phosphatase 107 U/L Troponin I 11.800 ng/ml Total Protein 5.9 gm/dl Albumin 2.0 gm/dl Test 05/20/17 07:40 05/20/17 09:25 05/20/17 10:25 Activated Partial Thromboplast Time > 300.0 SECONDS 159.2 SECONDS 98.9 SECONDS Partial Thromboplastin Ratio > 11.0 6.1 3.8
--- NOTE | 2017-05-20 14:01 | Palliative Care Consultation ---
Consultation Date of Consultation: May 20, 2017. Requesting Physician: Dr. Gutierrez Attending Physician: Dr. Hill Reason for Consultation: Goals of care History of Present Illness This 51 year old male patient with PMH IDDM, neuropathy, ESRD on dialysis, toe amputation, PVD, Htn, diastolic CHF, mood disorder, and others listed below, presented to the hospital four days ago with c/o SOB, lethargy, and not feeling well. he was just discharged from the hospital after being treated for HCAP 10 days prior to arrival. In ED, patient was very lethargic and SOB with scattered rhonchi and hypotension. Blood pressure did respond to fluid bolus. Patient was admitted to ICU and eventually required intubation with a known history of tracheomalacia. Patient has improved today and is critically ill, but stable. His family (father Julio, brother Hugh, and son Silvestre) have been very involved in patient's care and decision making. Unfortunately, patient's just two weeks ago and patient has been doing poorly since then. Patient's family is making decisions for him and it now needs to be decided whether or not patient will undergo aggressive treatment vs. focusing on comfort. Palliative care is consulted. This patient is very well known to [facility] as he has had innumerable hospital visits in the last decade. Patient is normally admitted for problems with his diabetes management and hypoglycemia. He has had several stays in the ICU over the years with hypoglycemia, cardiac arrest, and other problems. On every admission, it is documented that patient is distrusting of healthcare professionals and is very non-compliant with medical management. Patient has even been evaluated by psychiatry for concerns of patient being of danger to himself as he makes poor decisions regarding his care and disease management. In 2014, Dr. Collins evaluated patient for psychiatry and stated that patient does have impaired insight and comprehension. During that same year, EMS approached [facility] social services coordinator with concerns for patient's well-being as he had called them over 50 times in one calendar year for hypoglycemia but would refuse to come to the hospital after he was treated on sight. I met first with Dr. Gutierrez and patient's brother, Hugh, in room 108. Patient is intubated and receiving intermittent fentanyl and versed. He was awake the second time I was in room, but orientation status is difficult to assess, patient unable to participate in conversation. We discussed patient's current medical condition and options for treatment: tracheostomy as treatment of the tracheomalacia with airway collapse, COPD, and inability to manage secretions vs. extubation and reintubation when respiratory failure recurred with further discussion of trach at that time vs. extubation with no plan of reintubation and focusing on comfort and end of life care when respiratory failure recurred. Patient's brother wanted to wait for his father to arrive. I went back to patient's room after father, Julio, arrived. Dr. Gutierrez and I held family meeting in separate consultation room with Julio and Hugh. Julio states that his son has had difficulty with non-compliance for many years and in his opinion has not had the faculties to make rational decisions or understand long- term effects and consequences of his actions. It has been a concern of the family's for years and it seems to be worsening. Hugh agrees as well. When presented with the three options above, patient's father Julio made the decision to move forward with placing trach. Again, brother Hugh is in agreement. Past Medical/Surgical History Medical History: Achromobacter pneumonia Anemia Bipolar disorder Chronic kidney disease with end stage renal failure on dialysis Chronic obstructive lung disease Cough Syncope Diabetes mellitus type 1 Diabetic peripheral neuropathy associated with type 1 diabetes mellitus Gram-positive cocci bacteremia History of diabetic ulcer of foot Hyperparathyroidism due to renal insufficiency Hypertension Hypotension arterial Hypothyroidism infected hematoma R thigh Loss of sensation Pneumonia Pulmonary edema Septic shock Tracheomalacia venous stenosis AVF Weakness Surgical History: Bypass Grafting Appendectomy Multiple Lower Extremity digit amputation Fistula Formation Social History Smoking Status: Former Smoker History of Alcohol Use: No Drug Use: none Marital Status: Housing Status: lives with family Occupation Status: disabled Review of Systems unable to obtain due to patient condition Allergies Coded Allergies: Codeine (Verified Allergy, Intermediate, NAUSEA AND VOMITING, 05/07/17) QUESTIONABLE ALLERGY, STILL QUESTIONABLE BUT D/David SHONDA WITH COD 02/20/17 Tigecycline (Verified Allergy, Mild, ?RASH, 05/07/17) Clindamycin (Verified Allergy, Unknown, Unknown, 05/07/17) Penicillins (Verified Allergy, Unknown, PT HAS HAD MEFOXIN W/OUT A PROBLEM , 05/07/17) HAD MEFOXIN W/O PROBLEM Ciprofloxacin (Verified Adverse Reaction, Intermediate, nausea,vomiting, generalized weakness, 05/07/17) Morphine (Verified Adverse Reaction, Intermediate, TREMBLING,NAUSEA AND VOMITING, 05/07/17) Opioid Analgesics (Verified Adverse Reaction, Intermediate, "ALL RX PAIN MEDS CAUSE SEVERE NAUSEA", 05/07/17) Levofloxacin (Verified Adverse Reaction, Mild, Cipro/Levaquin (IV & po) = N & V, 05/07/17) Oxycodone (Verified Adverse Reaction, Unknown, N/V/D, 05/07/17) SPOKE WITH PATIENT ON 07/29/15, DOES NOT REMEMBER ANY DIFFICULTY BREATHING JUST HIT HIM HARD. Medications Current Inpatient Medications Medications (Trade) Dose Ordered Sig/Etta Route Start Time Stop Time Status Last Admin Dose Admin Miscellaneous Information (Consult) 1 ea UD PRN N/A 05/17/17 19:00 06/16/17 18:59 Atorvastatin Calcium (Lipitor Tab) 40 mg HS PO 05/17/17 21:00 06/16/17 20:59 05/19/17 20:42 40 MG Bupropion HCl (Wellbutrin-Sr Tab) 200 mg QPM PO 05/17/17 21:00 06/16/17 20:59 05/19/17 20:42 200 MG Clopidogrel Bisulfate (plAVix TAB) 75 mg Q2D@0900 PO 05/18/17 09:00 06/17/17 08:59 05/20/17 08:01 75 MG Gabapentin (Neurontin Cap) 100 mg BID PO 05/17/17 21:00 06/16/17 20:59 05/20/17 08:03 100 MG Albuterol/ Ipratropium (Duoneb) 3 ml QID PRN INH 05/17/17 20:15 06/16/17 20:14 05/19/17 04:00 3 ML Levothyroxine Sodium (Synthroid Tab) 112 mcg DAILYBB PO 05/18/17 06:00 06/17/17 05:59 05/20/17 05:33 112 MCG Miscellaneous Information (Order Awaiting Action) 1 ea QS N/A 05/18/17 00:00 06/17/17 00:00 Sevelamer HCl (Renagel Tab) 1,600 mg TIDM PO 05/18/17 07:15 06/17/17 07:14 05/18/17 15:56 1,600 MG Lactobacillus Acidophilus (Floranex Tab) 4 tab TIDM PO 05/18/17 07:15 06/17/17 07:59 05/20/17 08:01 4 TAB Acetaminophen (Tylenol Tab) 650 mg Q4H PRN PO 05/17/17 20:15 06/16/17 20:14 Glucose (Glucose 40% Gel) 15-30 GRAMS 15 GRAMS... UD PRN PO 05/17/17 20:15 06/16/17 20:14 Glucose (Glucose Chew Tab) 4-8 Tablets 4 Tabl... UD PRN PO 05/17/17 20:15 06/16/17 20:14 Dextrose (Dextrose 50% 50ML Syringe) 25-50ML OF 50% DW IV FOR... UD PRN IV 05/17/17 20:15 06/16/17 20:14 05/19/17 01:05 25 ML Glucagon (Glucagon Inj) 1 mg UD PRN SQ 05/17/17 20:15 06/16/17 20:14 Miscellaneous Information (Consult Glycemic Management Pharmacy) 1 ea UD PRN N/A 05/17/17 20:52 06/16/17 20:51 Levofloxacin 500 mg/Prmx 100 ml @ 100 mls/hr Q48H IV 05/19/17 20:00 05/24/17 19:59 05/19/17 20:03 100 MLS/HR Norepinephrine Bitartrate 8 mg/ Dextrose 508 ml @ 0 mls/hr Q0M PRN IV 05/17/17 20:31 06/16/17 23:59 05/20/17 02:59 9.6 MLS/HR Insulin Human Regular 250 units/ Sodium Chloride 252.5 ml @ 0 mls/hr Q24H IV 05/17/17 22:45 06/16/17 22:44 05/19/17 22:09 1.3 MLS/HR Insulin Aspart (novoLOG ASPART) SLIDING SCALE PCHS SC 05/18/17 08:00 06/17/17 07:59 05/18/17 17:14 5 UNITS Miscellaneous Information (Pending Order) 1 ea QS N/A 05/18/17 16:00 06/17/17 15:59 05/19/17 08:00 1 EA Midazolam HCl (Versed Inj) 2 mg Q2H PRN IV 05/19/17 07:15 06/18/17 07:14 05/20/17 02:59 2 MG Fentanyl Citrate (Fentanyl Inj) 50 mcg Q2H PRN IV 05/19/17 07:15 06/02/17 07:14 05/20/17 07:59 50 MCG Ioversol (Optiray 320) 100 ml UD PRN IV 05/19/17 08:15 05/23/17 08:14 Imipenem/ Cilastatin Sodium 500 mg/Dextrose 110 ml @ 110 mls/hr Q12@1000,2200 IV 05/19/17 22:00 05/26/17 21:59 05/19/17 21:20 110 MLS/HR Caspofungin 50 mg/ Sodium Chloride 260 ml @ 260 mls/hr DAILY@0900 IV 05/20/17 09:00 06/19/17 08:59 05/20/17 08:05 260 MLS/HR Thiamine HCl 200 mg/Sodium Chloride 52 ml @ 210 mls/hr Q12@1000,2200 IV 05/19/17 11:00 05/22/17 22:15 05/19/17 21:21 210 MLS/HR Ascorbic Acid 1500 mg/Sodium Chloride 103 ml @ 206 mls/hr Q6 IV 05/19/17 12:00 05/23/17 06:29 05/20/17 05:33 206 MLS/HR Levalbuterol (Xopenex Hfa Inhaler) 4 puffs Q8R INH 05/19/17 16:00 06/18/17 15:59 05/20/17 07:47 4 PUFFS Heparin Sodium (Porcine) (Heparin Iv Bolus) 2,000 unit TODAY@1000 IV 05/20/17 10:00 05/20/17 23:59 Heparin Sodium (Porcine) (Heparin Iv Bolus) 500 unit TODAY@1000,1100 IV 05/20/17 10:00 05/20/17 23:59 Epoetin Diaz (Procrit Inj) 10,000 units TODAY@1000 IV. 05/20/17 10:00 05/20/17 23:59 Methylprednisolone Sodium Succinate 40 mg/Syringe 0.64 ml @ 1.5 mls/min Q8 IV 05/20/17 14:00 06/19/17 13:59 Heparin Sodium (Porcine) (Heparin Sq 5000 Unit/0.5ml) 5,000 unit BID SC 05/20/17 21:00 06/19/17 20:59 Physical Exam Date Time Temp Pulse Resp B/P (MAP) Pulse Ox O2 Delivery O2 Flow Rate FiO2 05/20/17 10:58 35 05/20/17 10:00 77 13 118/79 (92) 99 Mechanical Ventilator 35 05/20/17 08:00 36.7 74 17 117/77 (90) 100 Mechanical Ventilator 35 05/20/17 08:00 35 05/20/17 08:00 Mechanical Ventilator 35 05/20/17 07:47 35 05/20/17 06:01 67 17 110/71 (89) 98 05/20/17 05:31 72 21 102/67 (78) 98 05/20/17 05:16 35 05/20/17 05:01 73 17 117/77 (88) 96 05/20/17 04:32 80 17 107/69 (80) 75 05/20/17 04:01 72 19 103/68 (79) 98 05/20/17 04:00 36.7 05/20/17 04:00 35 05/20/17 04:00 97 Mechanical Ventilator 35 05/20/17 03:31 70 20 121/75 (88) 98 05/20/17 03:01 72 17 107/74 (79) 95 05/20/17 02:31 73 19 108/71 (89) 98 05/20/17 02:01 72 17 103/73 (93) 97 05/20/17 01:49 35 05/20/17 01:31 74 21 121/79 (88) 100 05/20/17 01:01 71 15 110/79 (85) 98 05/20/17 00:31 74 16 121/82 (95) 99 05/20/17 00:01 36.7 05/20/17 00:01 77 18 115/82 (89) 99 05/19/17 23:59 40 05/19/17 23:59 99 Mechanical Ventilator 40 05/19/17 23:31 93 18 118/78 (93) 95 05/19/17 23:31 40 05/19/17 23:01 79 18 125/80 (97) 99 05/19/17 22:31 83 17 123/79 (89) 99 05/19/17 22:30 83 16 123/79 (89) 99 05/19/17 22:01 86 16 126/80 (99) 98 05/19/17 21:31 86 16 126/83 (91) 99 05/19/17 21:01 87 16 129/85 (97) 99 05/19/17 20:31 89 16 134/85 (103) 99 05/19/17 20:29 50 05/19/17 20:01 95 15 129/85 (101) 99 05/19/17 20:00 36.7 05/19/17 20:00 50 05/19/17 20:00 99 Mechanical Ventilator 50 05/19/17 19:31 94 21 141/90 (103) 99 05/19/17 19:01 96 21 136/90 (110) 99 05/19/17 18:00 100 16 138/90 (106) 98 Mechanical Ventilator 50 05/19/17 17:42 60 05/19/17 16:00 36.6 100 16 128/82 (97) 98 Mechanical Ventilator 100 05/19/17 15:59 100 05/19/17 15:59 99 Mechanical Ventilator 100 05/19/17 14:49 60 05/19/17 14:00 118 16 120/81 (94) 94 Mechanical Ventilator 100 05/19/17 12:00 94 Mechanical Ventilator 100 05/19/17 12:00 36.8 106 16 114/78 (90) 95 Mechanical Ventilator 100 05/19/17 12:00 100 General Appearance: no apparent distress, + pertinent finding (chronically ill appearing) ENT: + pertinent finding (ETT present) Neck: supple, no JVD Respiratory: no respiratory distress, no accessory muscle use, + decreased breath sounds, + pertinent finding (on mechanical vent) Cardiovascular: regular rate, rhythm, + pertinent finding (weak peripheral pulses) Abdomen: normal bowel sounds, soft Neurologic/Psychiatric: + pertinent finding (intubated and unable to particpate in conversation) Laboratory Results Last 24 Hours Test 05/19/17 12:32 05/19/17 13:26 05/19/17 14:43 05/19/17 15:25 Bedside Glucose 177 mg/dl 179 mg/dl 168 mg/dl Troponin I 16.800 ng/ml Test 05/19/17 17:41 05/19/17 18:24 05/19/17 19:36 05/19/17 20:46 Bedside Glucose 251 mg/dl 254 mg/dl Bedside Glucose (other) 254 mg/dl 246 mg/dl Test 05/19/17 21:14 05/19/17 21:23 05/19/17 23:29 05/20/17 01:36 Troponin I 17.100 ng/ml Bedside Glucose (other) 243 mg/dl 234 mg/dl 202 mg/dl Test 05/20/17 03:39 05/20/17 05:15 05/20/17 05:19 05/20/17 05:35 Bedside Glucose (other) 176 mg/dl 159 mg/dl Blood Gas Sample Site R Brachial R Radial Bedside Blood Gas pH (LAB) 7.31 7.34 Bedside Blood Gas pCO2 (LAB) 52 mmHg 47 mmHg Bedside Blood Gas pO2 (LAB) < 32 mmHg 71 mmHg Bedside Blood Gas HCO3 (LAB) 27 meq/L 25 meq/L Bedside Blood Gas Total CO2 28 mEq/l 27 mEq/l Bedside Blood Gas Base Excess (LAB) 0.0 meq/L -1.0 meq/L Bedside Blood Gas O2 Saturation 45.0 % 93.0 % Carl Test NA Pass Oxygen Delivery Device Ventilator Bedside Oxygen Rate (breaths/min) 16 Blood Gas Minute Ventilation 7.6 Bedside FiO2 35 % Blood Gas Tidal Volume 450 Blood Gas PEEP 10 Test 05/20/17 05:47 05/20/17 07:40 05/20/17 09:25 05/20/17 10:25 White Blood Count 12.04 K/uL Red Blood Count 2.69 M/uL Hemoglobin 9.1 g/dL Hematocrit 27.8 % Mean Corpuscular Volume 103.3 fL Mean Corpuscular Hemoglobin 33.8 pg Mean Corpuscular Hemoglobin Concent 32.7 g/dl Platelet Count 154 K/uL Mean Platelet Volume 10.2 fL Neutrophils (%) (Auto) 95.5 % Lymphocytes (%) (Auto) 1.7 % Monocytes (%) (Auto) 2.4 % Eosinophils (%) (Auto) 0.0 % Basophils (%) (Auto) 0.0 % Neutrophils # (Auto) 11.50 K/uL Lymphocytes # (Auto) 0.20 K/uL Monocytes # (Auto) 0.29 K/uL Eosinophils # (Auto) 0.00 K/uL Basophils # (Auto) 0.00 K/uL RDW Standard Deviation 53.9 fL RDW Coefficient of Variation 14.4 % Immature Granulocyte % (Auto) 0.4 % Immature Granulocyte # (Auto) 0.05 K/uL Sodium Level 133 mmol/L Potassium Level 4.4 mmol/L Chloride Level 94 mmol/L Carbon Dioxide Level 25 mmol/L Anion Gap 14.0 mmol/L Blood Urea Nitrogen 52 mg/dl Creatinine 9.30 mg/dl Est Creatinine Clear Calc Drug Dose 9.7 ml/min Estimated GFR () 6.8 Estimated GFR (Non- 5.9 BUN/Creatinine Ratio 5.6 Random Glucose 153 mg/dl Calcium Level 7.8 mg/dl Phosphorus Level 7.5 mg/dl Magnesium Level 2.1 mg/dl Total Bilirubin 0.5 mg/dl Direct Bilirubin 0.2 mg/dl Aspartate Amino Transf (AST/SGOT) 36 U/L Alanine Aminotransferase (ALT/SGPT) 20 U/L Alkaline Phosphatase 107 U/L Troponin I 11.800 ng/ml Total Protein 5.9 gm/dl Albumin 2.0 gm/dl Activated Partial Thromboplast Time > 300.0 SECONDS 159.2 SECONDS 98.9 SECONDS Partial Thromboplastin Ratio > 11.0 6.1 3.8 Assessment & Plan Problem list: SOB/LEE Acute on chronic hypercarbic and hypoxic respiratory failure Sepsis/septic shock HCAP COPD ESRD on dialysis Elevated troponin/underlying CAD Chronic diastolic CHF Tracheomalacia Goals of care Palliative care recs: -Patient is DNR in the setting of cardiac arrest. This decision was already made previously by patient's family. -In the setting of patient's acute illness and inability to make medical decisions, decision making is deferred to patient's next of kin, his father, Julio , with the help of patient's brother Hugh. See HPI for full discussion of goals of care and treatment options. After lengthy discussion, Julio and Hugh made decision to move forward with tracheostomy. They wanted the option that would give the patient the best chance of getting to see his son, Silvestre, graduate from high school in July. -Family states that patient is not capable of caring for himself any more and they anticipate that he will need placement after this hospitalization. Case management is following. -There is no official POA or advance directive paperwork. IF patient becomes able to make decisions or participate in conversation, can discuss completing this paperwork. Thank you kindly for this consult. I will follow as needed for palliative needs. Total time spent 70 minutes. Greater than 50% of time with the patient was spent on counseling and coordinating care.
[2017-05-20 14:12] LABS: PTT PATIENT 43.7 SECONDS (21.0-31.0)
--- NOTE | 2017-05-20 15:09 | Pharmacy Progress Note ---
Glycemic Control Progress Note Date of Service May 20, 2017. Scope Glycemic Pharmacist consulted for glycemic control to write orders per [facility] inpatient glycemic control protocol. Objective Accuchecks BSG (last 24hrs): Test 05/19/17 15:25 05/19/17 17:41 05/19/17 18:24 05/20/17 05:47 Bedside Glucose 168 mg/dl (70-99) 251 mg/dl (70-99) 254 mg/dl (70-99) Random Glucose 153 mg/dl (70-99) HbA1c: Test 05/18/17 04:10 Hemoglobin A1c 6.6 % (4.5-5.6) H Recent Pertinent Medications Outpatient Anti-diabetic Regimen: * Novolog pump * A1c = 6.6 % 05/18/17 Outpatient Anti-Diabetic Meds Basal Insulin Bolus Insulin Assessment & Plan ASSESSMENT: 05/18 * 51 yo brittle Type 1 diabetic known to our service * Significant stressors in brittle type 1 diabetic in ICU - insulin drip is best to manage BSG's at this time 05/19 * Changes to stressors * Intubated * Norepinephrine resumed for significant hypotension * Antibiotics broadened * Patient should be continued on insulin drip 05/20 * Stressors * Trach planned for today * Norepinephrine continues * Steroids tapered * Antibiotics/antifungal agents continued * Continue insulin drip * Note: insulin drip *must* continue in type 1 diabetics as they require at least some basal insulin. Pending order written for RN to call pharmacy or blackjack supervisor if insulin drip protocol indicates to hold drip for longer than 30 minutes. Patient may require dextrose administration to allow for continued insulin administration without hypoglycemia PLAN FOR INPATIENT GLYCEMIC CONTROL: * Continue IV insulin infusion * Goal Range 110 - 180 mg/dl * In the critical care setting, continuous IV insulin infusion has been shown to be the best method for achieving glycemic targets. * Novolog HS for CHO coverage only per insulin drip calculator * Please note that the plan above was derived based on current level of insulin resistance and hospital stress. These recommendations are appropriate for inpatient admission only. Plan of care upon discharge will need to be reassessed to avoid potential outpatient hypo/hyperglycemia. Thank you.
[2017-05-20] MEDS: IMIPENEM/CILASTATIN IV 500 MG in D5W 100ML IV SCH ×2 (15:12→20:54)
--- NOTE | 2017-05-20 15:31 | Pharmacy Progress Note ---
Pharmacy Antibiotic Prog Note Date of Service May 20, 2017. Objective Height (Feet): 5 Height (Inches): 10.00 Weight (Kilograms): 87.300 Lab Results (24hrs): Test 05/19/17 17:41 05/19/17 18:24 05/19/17 21:14 05/20/17 03:39 Bedside Glucose 251 mg/dl (70-99) 254 mg/dl (70-99) Troponin I 17.100 ng/ml (0-0.045) Bedside Glucose (other) 176 mg/dl (70-99) Test 05/20/17 05:15 05/20/17 05:19 05/20/17 05:35 05/20/17 05:47 Blood Gas Sample Site R Brachial R Radial Bedside Blood Gas pH (LAB) 7.31 (7.35-7.45) 7.34 (7.35-7.45) Bedside Blood Gas pCO2 (LAB) 52 mmHg (35-46) 47 mmHg (35-46) Bedside Blood Gas pO2 (LAB) < 32 mmHg (80-95) 71 mmHg (80-95) Bedside Blood Gas HCO3 (LAB) 27 meq/L (19-24) 25 meq/L (19-24) Bedside Blood Gas Total CO2 28 mEq/l (24-31) 27 mEq/l (24-31) Bedside Blood Gas Base Excess (LAB) 0.0 meq/L (-9-1.8) -1.0 meq/L (-9-1.8) Bedside Blood Gas O2 Saturation 45.0 % (90-95) 93.0 % (90-95) Carl Test NA Pass Oxygen Delivery Device Ventilator Bedside Oxygen Rate (breaths/min) 16 Blood Gas Minute Ventilation 7.6 Bedside FiO2 35 % Blood Gas Tidal Volume 450 Blood Gas PEEP 10 Bedside Glucose (other) 159 mg/dl (70-99) White Blood Count 12.04 K/uL (4.8-10.8) Red Blood Count 2.69 M/uL (4.7-6.1) Hemoglobin 9.1 g/dL (14.0-18.0) Hematocrit 27.8 % (42-52) Mean Corpuscular Volume 103.3 fL (80-100) Mean Corpuscular Hemoglobin 33.8 pg (25-34) Mean Corpuscular Hemoglobin Concent 32.7 g/dl (32-36) Platelet Count 154 K/uL (130-400) Mean Platelet Volume 10.2 fL (7.4-10.4) Neutrophils (%) (Auto) 95.5 % Lymphocytes (%) (Auto) 1.7 % Monocytes (%) (Auto) 2.4 % Eosinophils (%) (Auto) 0.0 % Basophils (%) (Auto) 0.0 % Neutrophils # (Auto) 11.50 K/uL (1.4-6.5) Lymphocytes # (Auto) 0.20 K/uL (1.2-3.4) Monocytes # (Auto) 0.29 K/uL (0.11-0.59) Eosinophils # (Auto) 0.00 K/uL (0-0.5) Basophils # (Auto) 0.00 K/uL (0-0.2) RDW Standard Deviation 53.9 fL (36.4-46.3) RDW Coefficient of Variation 14.4 % (11.5-14.5) Immature Granulocyte % (Auto) 0.4 % Immature Granulocyte # (Auto) 0.05 K/uL (0.00-0.02) Sodium Level 133 mmol/L (136-145) Potassium Level 4.4 mmol/L (3.5-5.1) Chloride Level 94 mmol/L (98-107) Carbon Dioxide Level 25 mmol/L (21-32) Anion Gap 14.0 mmol/L (3-11) Blood Urea Nitrogen 52 mg/dl (7-18) Creatinine 9.30 mg/dl (0.60-1.40) Est Creatinine Clear Calc Drug Dose 9.7 ml/min Estimated GFR () 6.8 Estimated GFR (Non- 5.9 BUN/Creatinine Ratio 5.6 (10-20) Random Glucose 153 mg/dl (70-99) Calcium Level 7.8 mg/dl (8.5-10.1) Phosphorus Level 7.5 mg/dl (2.5-4.9) Magnesium Level 2.1 mg/dl (1.8-2.4) Total Bilirubin 0.5 mg/dl (0.2-1) Direct Bilirubin 0.2 mg/dl (0-0.2) Aspartate Amino Transf (AST/SGOT) 36 U/L (15-37) Alanine Aminotransferase (ALT/SGPT) 20 U/L (12-78) Alkaline Phosphatase 107 U/L (45-117) Troponin I 11.800 ng/ml (0-0.045) Total Protein 5.9 gm/dl (6.4-8.2) Albumin 2.0 gm/dl (3.4-5.0) Test 05/20/17 10:25 05/20/17 13:48 Activated Partial Thromboplast Time 98.9 SECONDS (21.0-31.0) 43.7 SECONDS (21.0-31.0) Partial Thromboplastin Ratio 3.8 1.7 Assessment & Plan Assessment * 51 yo M in ICU with sepsis * Trach planned for today * Possible penicillin, clindamycin allergies (unknown reaction). 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 Thank you
[2017-05-20] MEDS ORDERED: VANCOMYCIN IV 500 MG in SODIUM CHLORIDE 0.9% 250ML 250 ML IV SCH (16:00)
[2017-05-20] MEDS: ATORVASTATIN 40 MG TAB PO SCH (20:55)
[2017-05-20] MEDS: BuPROPion SR 100 MG TABCR PO SCH (20:55)
[2017-05-20] MEDS: HEPARIN SOD 5000 UNIT/0.5 ML CARP SC SCH (20:57)
[2017-05-21] VITALS (40 sets, daily range): BP systolic 81–198; BP diastolic 65–138; PULSE 68–158; TEMP 36.5–36.7; O2SAT 66–100
[2017-05-21] MEDS: INSULIN REGULAR 250 UNITS in SODIUM CHLORIDE 0.9% 250ML 250 ML IV SCH (00:20)
[2017-05-21] MEDS: ASCORBIC ACID INJ 1,500 MG in NSS 100 ML IV SCH ×3 (05:21→17:51)
[2017-05-21] MEDS: METHYLPREDNISOLONE IV 40 MG in SYRINGE 0 ML IV SCH ×2 (05:24→18:18)
[2017-05-21] MEDS: LEVOTHYROXINE 112 MCG TAB PO SCH (05:24)
[2017-05-21 06:09] LABS: PTT PATIENT 40.4 SECONDS (21.0-31.0)
[2017-05-21 06:35] LABS: ALBUMIN 2.1 gm/dl (3.4-5.0); CALCIUM 7.9 mg/dl (8.5-10.1); CREATININE 5.98 mg/dl (0.60-1.40); POTASSIUM 4.6 mmol/L (3.5-5.1)
[2017-05-21] MEDS: LEValbuterol HFA 15GM INHALER INH SCH ×3 (07:03→23:11)
[2017-05-21] MEDS: BREO ELLIPTA: ORDER AWAITING ACTION SCH ×3 (07:31→23:51)
[2017-05-21] MEDS: INSULIN ASPART 100 UNITS/ML 3 ML PEN SC SCH ×4 (08:00→21:02)
[2017-05-21] MEDS: CASPOFUNGIN INJ 50 MG in SODIUM CHLORIDE 0.9% 250ML 250 ML IV SCH (08:16)
[2017-05-21] MEDS: LACTOBACILLUS ACIDOPHILUS (FLORANEX) TAB PO SCH ×3 (08:16→16:14)
[2017-05-21] MEDS: GABAPENTIN 100 MG CAP PO SCH ×2 (08:16→20:53)
[2017-05-21] MEDS: HEPARIN SOD 5000 UNIT/0.5 ML CARP SC SCH ×3 (08:18→20:56)
[2017-05-21] MEDS: SEVELAMER HYDROCH 800 MG TAB PO SCH ×3 (08:18→16:14)
--- NOTE | 2017-05-21 08:36 | Hospitalist Progress Note ---
Hospitalist Progress Note Date of Service May 20, 2017. Subjective Pt evaluation today including: conversation w/ patient, conversation w/ spa consultant (Piping Engineer) Pt remains intubated, but is more alert today with minimal verbal stimulation, remains calm on the vent. Points to where his insulin pump usually is located on his body and points to a paper where he wrote a questions asking where his insulin pump is. He has already been told by staff sonographer that his insulin pump is off and he is on insulin gtt. Discussed care with Piping Engineer and plans for tracheostomy are for tomorrow possibly. Additional Comments: difficult to obtain due to intubation Objective Vital Signs Date Time Temp Pulse Resp B/P (MAP) Pulse Ox O2 Delivery O2 Flow Rate FiO2 05/21/17 06:58 35 05/21/17 05:31 85 18 137/92 (107) 99 05/21/17 05:16 35 05/21/17 05:01 71 18 136/85 (102) 100 05/21/17 04:02 36.7 82 16 140/96 (111) 99 Mechanical Ventilator 35 05/21/17 04:00 98 Mechanical Ventilator 35 05/21/17 04:00 35 05/21/17 03:01 71 20 130/85 (100) 100 Mechanical Ventilator 35 05/21/17 02:23 35 05/21/17 02:01 68 16 135/82 (99) 100 Mechanical Ventilator 35 05/21/17 01:01 69 17 121/78 (92) 100 Mechanical Ventilator 35 05/21/17 00:01 36.5 72 20 126/78 (94) 100 Mechanical Ventilator 35 05/20/17 23:59 98 Mechanical Ventilator 35 05/20/17 23:59 35 05/20/17 23:08 35 05/20/17 23:01 70 18 113/67 (82) 99 Mechanical Ventilator 35 05/20/17 22:01 79 16 140/85 (103) 100 Mechanical Ventilator 35 05/20/17 21:01 80 17 119/74 (89) 99 Mechanical Ventilator 35 05/20/17 20:10 35 05/20/17 20:01 36.7 84 20 129/76 (93) 100 Mechanical Ventilator 35 05/20/17 20:00 98 Mechanical Ventilator 35 05/20/17 20:00 35 05/20/17 19:01 72 16 131/73 (92) 98 Mechanical Ventilator 35 3/2/18 18:00 77 16 127/76 (93) 97 Mechanical Ventilator 35 18 17:51 35 18 16:00 Mechanical Ventilator 35 18 16:00 36.7 80 12 142/93 (109) 98 Mechanical Ventilator 35 18 16:00 35 18 14:57 36.0 71 133/77 (95) 05/20/17 14:45 68 114/73 18 14:30 71 109/69 18 14:15 68 122/73 18 14:07 35 18 14:00 68 122/77 18 14:00 71 17 122/77 (92) 99 Mechanical Ventilator 35 05/20/17 13:45 75 115/76 18 13:30 76 127/77 18 13:15 76 117/71 18 13:00 79 125/82 05/20/17 12:45 80 116/72 05/20/17 12:30 72 117/72 18 12:15 70 118/73 18 12:00 35 18 12:00 Mechanical Ventilator 35 05/20/17 12:00 36.8 67 15 121/74 (90) 100 Mechanical Ventilator 35 05/20/17 12:00 70 121/74 18 11:45 68 113/75 18 11:30 66 118/75 18 11:15 71 107/72 18 11:00 72 112/72 18 10:58 35 18 10:46 36.4 68 112/76 (88) 18 10:00 77 13 118/79 (92) 99 Mechanical Ventilator 35 Physical Exam General Appearance: WD/WN, no apparent distress (intubated) Eyes: normal inspection, sclerae normal ENT: hearing grossly normal Neck: trachea midline Respiratory/Chest: no respiratory distress, no accessory muscle use, + decreased breath sounds (at bases bilat, but rhonchi improved) Cardiovascular: regular rate, rhythm, no edema, + systolic murmur (3/6 in RUSB) Abdomen: normal bowel sounds Extremities: no pedal edema, + pertinent finding (left toes all amputated) Neurologic/Psychiatric: + pertinent finding (awake but drowsy) Skin: normal color, warm/dry Laboratory Results Last 24 Hours Test 05/20/17 09:25 05/20/17 09:38 05/20/17 10:25 05/20/17 13:48 Activated Partial Thromboplast Time 159.2 SECONDS 98.9 SECONDS 43.7 SECONDS Partial Thromboplastin Ratio 6.1 3.8 1.7 Bedside Glucose 132 mg/dl Test 05/20/17 14:45 05/20/17 15:58 05/20/17 16:48 05/20/17 17:58 Bedside Glucose 91 mg/dl 100 mg/dl 113 mg/dl 105 mg/dl Test 05/20/17 19:22 05/20/17 19:58 05/20/17 20:59 05/20/17 22:05 Bedside Glucose 109 mg/dl 138 mg/dl 145 mg/dl 131 mg/dl Test 05/20/17 23:09 05/21/17 00:09 05/21/17 02:06 05/21/17 04:01 Bedside Glucose 163 mg/dl 135 mg/dl 165 mg/dl 129 mg/dl Test 05/21/17 05:31 05/21/17 08:14 Activated Partial Thromboplast Time 40.4 SECONDS Partial Thromboplastin Ratio 1.6 Sodium Level 136 mmol/L Potassium Level 4.6 mmol/L Chloride Level 101 mmol/L Carbon Dioxide Level 26 mmol/L Anion Gap 9.0 mmol/L Blood Urea Nitrogen 31 mg/dl Creatinine 5.98 mg/dl Est Creatinine Clear Calc Drug Dose 16.5 ml/min Estimated GFR () 11.6 Estimated GFR (Non- 10.0 BUN/Creatinine Ratio 5.2 Random Glucose 133 mg/dl Calcium Level 7.9 mg/dl Total Bilirubin 0.6 mg/dl Direct Bilirubin 0.1 mg/dl Aspartate Amino Transf (AST/SGOT) 31 U/L Alanine Aminotransferase (ALT/SGPT) 22 U/L Alkaline Phosphatase 115 U/L Total Protein 6.0 gm/dl Albumin 2.1 gm/dl Random Vancomycin Level 19.4 mcg/ml Bedside Glucose 155 mg/dl Assessment and Plan This patient is a 51 yr old male with past medical history of DMI with neuropathy, excessive dynamic airway collapse and chronic bronchiectasis, on CPAP nocturnally, PAD s/p left and right foot toe amputation and right femoropopliteal graft, HTN, chronic diastolic CHF, hypothyroidism, COPD and previous smoker, mood disorder and dyslipidemia. Patient was recently discharged from the hospital 10 days prior after being treated for HCAP, he received Zyvox and meropenem 5 days when he was in the hospital and was discharged on doxycycline and tapering dose of prednisone. Presented to the ED with septic shock and shortness of breath shortly after receiving hemodialysis. He was found to have acute on chronic hypoxic respiratory failure with tachypnea and increased oxygen requirement at 4 L, sepsis, pneumonia in the left lower lobe, and with septic shock and profound hypotension requiring admission to the intensive care unit for vasopressors. He improved and was transferred out of ICU the evening of 05/18, but overnight he decompensated again from a respiratory standpoint and was transferred back to ICU where he was intubated for acute on chronic hypercarbic and hypoxic respiratory failure. Acute on chronic hypercarbic and hypoxic respiratory failure/sepsis and septic shock/HCAP LLL/EDAC/COPD -worsening, infiltrates worsened. Now intubated. S/p bronchoscopy in ICU with copious allen secretions lavaged, cultures taken and pending Now off vasopressors. Prognosis not good given significant underlying lung disease, presumed CAD, DMI. Family aware of poor prognosis after d/w Piping Engineer and Father is the designated decision maker. Changed to DNR Continues on broad-spectrum antibiotics, Leukocytosis worsening but was on steroids, now improved -cefepime and Vanco now discontinued, neg MRSA nasal swab -continues now on Levaquin, Imipenem, and Caspofungin, appreciate ID consult -Appreciate house rn management -Appreciate pulmonology consultation -Plan for tracheostomy tomorrow to assist with future needs for recurrent mech ventilation and suctioning of frequent copious secretions causing recurrent PNAs due to airway collapse -Continue bronchodilators -continue IV steroids and taper down -follow sputum, BAL,and Blood Cxs -Follow CBC -on IV thiamine and Vit C for severe sepsis Elevated troponin/Presumed underlying CAD/Moderate aortic stenosis-suspect demand ischemia in the setting of profound hypotension. Troponin was normal initially and has since peaked at 19. Trop trended downward, then back up again in setting of recurrent shock, and now down again. He had no chest pain when was awake previously. Had the exact same presentation 2 weeks ago during hospitalization. ECGs with nonspecific ST changes in the inferior leads ECHO with normal LV function, difficult to assess for WMAs, moderate -continue heparin drip and continue to trend troponin -Consult cardiology appreciated -Continue Plavix, statin -holding metoprolol for hypotension Chronic diastolic congestive heart failure-stable, volume status to be managed with dialysis -Holding home Lasix for now ESRD on HD every Tuesday/Anemia of chronic renal disease -Appreciate nephrology consultation for inpatient dialysis management-HD today -Follow PRP, CBC -Continue binders -Receiving Procrit here Insulin-dependent diabetes mellitus type 1 since childhood, controlled with HgbA1C 6.6%, with hyperglycemia-normally is on insulin pump at home but has been having great difficulty managing and has turned the basal rate off in the last week and is only doing boluses. -On insulin drip here and will continue this throughout hospitalization with pharmacy management Hypertension/dyslipidemia/Peripheral vascular disease-hypotension as above now improved -holding metoprolol as above -Continue Plavix, statin Hypothyroidism-TSH was 1.11 in the last month -Continue levothyroxine home dose Peripheral neuropathy-stable -Continue gabapentin Mood disorder/normal grieving over loss of his 1 week ago -Consider psychiatric consult when awake -Continue bupropion Prophylaxis-heparin drip Disposition-remains in critical condition in ICU DNR Critical care time spent 35 minutes evaluating, interpreting studies, discussing with specialists, and medical decision making
[2017-05-21] MEDS: IMIPENEM/CILASTATIN IV 500 MG in D5W 100ML IV SCH (09:58)
[2017-05-21] MEDS: THIAMINE HCL INJ 200 MG in NSS 50ML IV SCH ×2 (09:58→21:04)
--- NOTE | 2017-05-21 10:29 | Pre Sedation Assessment ---
Pre Sedation Assessment General Date of Sedation: May 21, 2017. Vital Signs Past 12 Hours Date Time Temp Pulse Resp B/P (MAP) Pulse Ox O2 Delivery O2 Flow Rate FiO2 05/21/17 10:00 83 20 147/85 (105) 100 Mechanical Ventilator 35 05/21/17 08:00 100 Mechanical Ventilator 35 05/21/17 08:00 35 05/21/17 08:00 36.7 89 22 155/96 (115) 100 Mechanical Ventilator 35 05/21/17 06:58 35 05/21/17 05:31 85 18 137/92 (107) 99 05/21/17 05:16 35 05/21/17 05:01 71 18 136/85 (102) 100 05/21/17 04:02 36.7 82 16 140/96 (111) 99 Mechanical Ventilator 35 05/21/17 04:00 98 Mechanical Ventilator 35 05/21/17 04:00 35 05/21/17 03:01 71 20 130/85 (100) 100 Mechanical Ventilator 35 05/21/17 02:23 35 05/21/17 02:01 68 16 135/82 (99) 100 Mechanical Ventilator 35 05/21/17 01:01 69 17 121/78 (92) 100 Mechanical Ventilator 35 05/21/17 00:01 36.5 72 20 126/78 (94) 100 Mechanical Ventilator 35 05/20/17 23:59 98 Mechanical Ventilator 35 05/20/17 23:59 35 05/20/17 23:08 35 05/20/17 23:01 70 18 113/67 (82) 99 Mechanical Ventilator 35 Review Cardiovascular: regular rate, rhythm, no edema, no gallop, no JVD, normal peripheral pulses Lungs: + rhonchi Pre-Sedation Airway Assessment Smoking Status: Former Smoker Hx of Sleep Apnea: No Hx of difficult intubation: No Short Thick Neck: No Thyro-mental Distance: > 3 Finger Breadths Oral Cavity: WNL Mallampati Classification: Class II ASA Classification: Class IV NPO Status Date of Last Intake of Fluids: May 19, 2017 Time of Last Intake of Fluids: 0100 Date of Last Intake of Solids: May 19, 2017 Time of Last Intake of Solids: 0100 Procedure Planning Contraindications for Sedation: None (Patient with secure airway, current medical management in ICU) Current Medications Reviewed: Yes Notes The planned sedation has been discussed with the patient. Informed Consent was obtained. I have identified the patient, determined the appropriateness of sedation and have assessed the patient immediately prior to the procedure. All medicine(s) and interventions are by my order. This presedation assessment was repeated and completed on May 21, 2017
[2017-05-21] MEDS ORDERED: VECURONIUM BROMIDE 10 MG VIAL IV ONE (10:30)
[2017-05-21] MEDS ORDERED: FENTANYL CITRATE INJ 50 MCG/1 ML 2 ML VIAL ONE ×3 (10:33→11:35)
[2017-05-21] MEDS ORDERED: MIDAZOLAM HCL 1 MG/ML 2ML VIAL ONE (10:34)
[2017-05-21] MEDS: FENTANYL CITRATE INJ 50 MCG/1 ML 2 ML VIAL IV PRN ×4 (10:55→15:37)
[2017-05-21] MEDS: MIDAZOLAM HCL 1 MG/ML 2ML VIAL IV PRN ×5 (10:55→21:59)
[2017-05-21] MEDS ORDERED: NURSING VERBAL MED ORDER ONE ×4 (11:00→17:30)
[2017-05-21] MEDS ORDERED: LIDOCAINE/EPINEPHRINE 1% 20 ML VIAL INFIL STA (11:09)
--- NOTE | 2017-05-21 11:18 | Nephrology Progress Note ---
Nephrology Progress Note Date of Service May 21, 2017. Chief Complaint Follow-up for end-stage renal disease hemodialysis. Anthony Christian was seen and examined in ICU this morning. He remained intubated but awake, alert. Blood pressure stable. Had dialysis yesterday, currently electrolyte acceptable. Review of Systems A complete review of systems was performed. Pertinent positives are noted above. All other systems are negative. Vital Signs Last 8 Hrs Date Time Temp Pulse Resp B/P (MAP) Pulse Ox O2 Delivery O2 Flow Rate FiO2 05/21/17 08:00 36.7 89 22 155/96 (115) 100 Mechanical Ventilator 35 05/21/17 06:58 35 05/21/17 05:31 85 18 137/92 (107) 99 05/21/17 05:16 35 05/21/17 05:01 71 18 136/85 (102) 100 05/21/17 04:02 36.7 82 16 140/96 (111) 99 Mechanical Ventilator 35 05/21/17 04:00 98 Mechanical Ventilator 35 05/21/17 04:00 35 05/21/17 03:01 71 20 130/85 (100) 100 Mechanical Ventilator 35 05/21/17 02:23 35 05/21/17 02:01 68 16 135/82 (99) 100 Mechanical Ventilator 35 Last Recorded Weight Weight (Kilograms): 90.200 Physical Exam GENERAL: Middle-aged male, intubated but awake, alert NECK: Supple, no JVD. RESPIRATORY: Coarse crackles bilaterally CARDIOVASCULAR: S1, S2 normal, rate rhythm regular. EXTREMITY: No lower extremity edema NEURO: speech fluent. PSYCHIATRY: Normal mood and judgment Family History FH: heart disease Negative for CKD / ESRD Social History Smoking Status: Current every day smoker Drug Use: none Marital Status: Housing Status: lives with family Occupation: disabled . Medically disabled. Former smoker (Quit 2013) Laboratory Results Past 24 Hours 05/21/17 05:31 Test 05/20/17 09:25 05/20/17 09:38 05/20/17 10:25 05/20/17 13:48 Activated Partial Thromboplast Time 159.2 SECONDS (21.0-31.0) 98.9 SECONDS (21.0-31.0) 43.7 SECONDS (21.0-31.0) Partial Thromboplastin Ratio 6.1 3.8 1.7 Bedside Glucose 132 mg/dl (70-99) Test 05/20/17 14:45 05/20/17 15:58 05/20/17 16:48 05/20/17 17:58 Bedside Glucose 91 mg/dl (70-99) 100 mg/dl (70-99) 113 mg/dl (70-99) 105 mg/dl (70-99) Test 05/20/17 19:22 05/20/17 19:58 05/20/17 20:59 05/20/17 22:05 Bedside Glucose 109 mg/dl (70-99) 138 mg/dl (70-99) 145 mg/dl (70-99) 131 mg/dl (70-99) Test 05/20/17 23:09 05/21/17 00:09 05/21/17 02:06 05/21/17 04:01 Bedside Glucose 163 mg/dl (70-99) 135 mg/dl (70-99) 165 mg/dl (70-99) 129 mg/dl (70-99) Test 05/21/17 05:31 05/21/17 08:14 Activated Partial Thromboplast Time 40.4 SECONDS (21.0-31.0) Partial Thromboplastin Ratio 1.6 Anion Gap 9.0 mmol/L (3-11) Est Creatinine Clear Calc Drug Dose 16.5 ml/min Estimated GFR () 11.6 Estimated GFR (Non- 10.0 BUN/Creatinine Ratio 5.2 (10-20) Calcium Level 7.9 mg/dl (8.5-10.1) Total Bilirubin 0.6 mg/dl (0.2-1) Direct Bilirubin 0.1 mg/dl (0-0.2) Aspartate Amino Transf (AST/SGOT) 31 U/L (15-37) Alanine Aminotransferase (ALT/SGPT) 22 U/L (12-78) Alkaline Phosphatase 115 U/L (45-117) Total Protein 6.0 gm/dl (6.4-8.2) Albumin 2.1 gm/dl (3.4-5.0) Random Vancomycin Level 19.4 mcg/ml Bedside Glucose 155 mg/dl (70-99) Allergies Coded Allergies: Codeine (Verified Allergy, Intermediate, NAUSEA AND VOMITING, 05/07/17) QUESTIONABLE ALLERGY, STILL QUESTIONABLE BUT MD Villafuerte/C SHONDA WITH COD 02/20/17 Tigecycline (Verified Allergy, Mild, ?RASH, 05/07/17) Clindamycin (Verified Allergy, Unknown, Unknown, 05/07/17) Penicillins (Verified Allergy, Unknown, PT HAS HAD MEFOXIN W/OUT A PROBLEM , 05/07/17) HAD MEFOXIN W/O PROBLEM Ciprofloxacin (Verified Adverse Reaction, Intermediate, nausea,vomiting, generalized weakness, 05/07/17) Morphine (Verified Adverse Reaction, Intermediate, TREMBLING,NAUSEA AND VOMITING, 05/07/17) Opioid Analgesics (Verified Adverse Reaction, Intermediate, "ALL RX PAIN MEDS CAUSE SEVERE NAUSEA", 05/07/17) Levofloxacin (Verified Adverse Reaction, Mild, Cipro/Levaquin (IV & po) = N & V, 05/07/17) Oxycodone (Verified Adverse Reaction, Unknown, N/V/D, 05/07/17) SPOKE WITH PATIENT ON 07/29/15, DOES NOT REMEMBER ANY DIFFICULTY BREATHING JUST HIT HIM HARD. Medications Current Inpatient Medications Medications (Trade) Dose Ordered Sig/Etta Route Start Time Stop Time Status Last Admin Dose Admin Miscellaneous Information (Consult) 1 ea UD PRN N/A 05/17/17 19:00 06/16/17 18:59 Atorvastatin Calcium (Lipitor Tab) 40 mg HS PO 05/17/17 21:00 06/16/17 20:59 05/20/17 20:55 40 MG Bupropion HCl (Wellbutrin-Sr Tab) 200 mg QPM PO 05/17/17 21:00 06/16/17 20:59 05/20/17 20:55 200 MG Clopidogrel Bisulfate (plAVix TAB) 75 mg Q2D@0900 PO 05/18/17 09:00 06/17/17 08:59 05/20/17 08:01 75 MG Gabapentin (Neurontin Cap) 100 mg BID PO 05/17/17 21:00 06/16/17 20:59 05/21/17 08:16 100 MG Albuterol/ Ipratropium (Duoneb) 3 ml QID PRN INH 05/17/17 20:15 06/16/17 20:14 05/19/17 04:00 3 ML Levothyroxine Sodium (Synthroid Tab) 112 mcg DAILYBB PO 05/18/17 06:00 06/17/17 05:59 05/21/17 05:24 112 MCG Miscellaneous Information (Order Awaiting Action) 1 ea QS N/A 05/18/17 00:00 06/17/17 00:00 Sevelamer HCl (Renagel Tab) 1,600 mg TIDM PO 05/18/17 07:15 06/17/17 07:14 05/18/17 15:56 1,600 MG Lactobacillus Acidophilus (Floranex Tab) 4 tab TIDM PO 05/18/17 07:15 06/17/17 07:59 05/21/17 08:16 4 TAB Acetaminophen (Tylenol Tab) 650 mg Q4H PRN PO 05/17/17 20:15 06/16/17 20:14 Glucose (Glucose 40% Gel) 15-30 GRAMS 15 GRAMS... UD PRN PO 05/17/17 20:15 06/16/17 20:14 Glucose (Glucose Chew Tab) 4-8 Tablets 4 Tabl... UD PRN PO 05/17/17 20:15 06/16/17 20:14 Dextrose (Dextrose 50% 50ML Syringe) 25-50ML OF 50% DW IV FOR... UD PRN IV 05/17/17 20:15 06/16/17 20:14 05/19/17 01:05 25 ML Glucagon (Glucagon Inj) 1 mg UD PRN SQ 05/17/17 20:15 06/16/17 20:14 Miscellaneous Information (Consult Glycemic Management Pharmacy) 1 ea UD PRN N/A 05/17/17 20:52 06/16/17 20:51 Levofloxacin 500 mg/Prmx 100 ml @ 100 mls/hr Q48H IV 05/19/17 20:00 05/24/17 19:59 05/19/17 20:03 100 MLS/HR Norepinephrine Bitartrate 8 mg/ Dextrose 508 ml @ 0 mls/hr Q0M PRN IV 05/17/17 20:31 06/16/17 23:59 05/20/17 02:59 9.6 MLS/HR Insulin Human Regular 250 units/ Sodium Chloride 252.5 ml @ 0 mls/hr Q24H IV 05/17/17 22:45 06/16/17 22:44 05/21/17 00:20 1 MLS/HR Insulin Aspart (novoLOG ASPART) SLIDING SCALE PCHS SC 05/18/17 08:00 06/17/17 07:59 05/18/17 17:14 5 UNITS Miscellaneous Information (Pending Order) 1 ea QS N/A 05/18/17 16:00 06/17/17 15:59 05/19/17 08:00 1 EA Midazolam HCl (Versed Inj) 2 mg Q2H PRN IV 05/19/17 07:15 06/18/17 07:14 05/20/17 23:08 2 MG Fentanyl Citrate (Fentanyl Inj) 50 mcg Q2H PRN IV 05/19/17 07:15 06/02/17 07:14 05/20/17 16:41 50 MCG Ioversol (Optiray 320) 100 ml UD PRN IV 05/19/17 08:15 05/23/17 08:14 Imipenem/ Cilastatin Sodium 500 mg/Dextrose 110 ml @ 110 mls/hr Q12@1000,2200 IV 05/19/17 22:00 05/26/17 21:59 05/20/17 20:54 110 MLS/HR Caspofungin 50 mg/ Sodium Chloride 260 ml @ 260 mls/hr DAILY@0900 IV 05/20/17 09:00 06/19/17 08:59 05/21/17 08:16 260 MLS/HR Thiamine HCl 200 mg/Sodium Chloride 52 ml @ 210 mls/hr Q12@1000,2200 IV 05/19/17 11:00 05/22/17 22:15 05/20/17 22:35 210 MLS/HR Ascorbic Acid 1500 mg/Sodium Chloride 103 ml @ 206 mls/hr Q6 IV 05/19/17 12:00 05/23/17 06:29 05/21/17 05:21 206 MLS/HR Levalbuterol (Xopenex Hfa Inhaler) 4 puffs Q8R INH 05/19/17 16:00 06/18/17 15:59 05/21/17 07:03 4 PUFFS Methylprednisolone Sodium Succinate 40 mg/Syringe 0.64 ml @ 1.5 mls/min Q8 IV 05/20/17 14:00 06/19/17 13:59 05/21/17 05:24 1.5 MLS/MIN Heparin Sodium (Porcine) (Heparin Sq 5000 Unit/0.5ml) 5,000 unit BID SC 05/20/17 21:00 06/19/17 20:59 05/21/17 08:18 5,000 UNIT Impression (1) End-stage renal disease on hemodialysis (2) Bronchitis (3) Tracheomalacia (4) Diabetes mellitus (5) Anemia Patient admitted to the hospital w/ recurrent bronchitis. He has a history of severe tracheal malacia with chronic bronchiectasis. He tested negative for Influenza. He is now on broad spectrum antibiotics. Blood cultures and Mycoplasma testing are pending. CXR is negative for infiltrates. PMH - ESRD due to diabetic nephropathy on IHD since 12/25 (HD TTS at [facility] - 4 hrs 2K 2Ca F180NR Qb 450 cc/min HCO3 34 EDW 83 kg), IDDM, HTN , PVD s/p R femoral artery bypass, anemia, hypothyroidism, hypercholesterolemia , bipolar disorder, COPD w/ severe tracheomalacia and chronic bronchiectasis ( quit smoking ~ 2013). Recommendations -- HD had hemodialysis yesterday, currently electrolyte and volume status stable. No need for dialysis today, will monitor over the weekend. -- limit IV fluid -- Imipenem, Levaquin and Caspofungin doses are appropriate for ESRD -- Awaiting tracheostomy this morning Will follow.
--- NOTE | 2017-05-21 11:58 | Procedure Note ---
Procedure Note Date of Service May 21, 2017. Procedure Note Procedure Name: Fiberoptic bronchoscopy for placement of percutaneous tracheostomy tube Procedure time out: side/site verified, patient ID confirmed, correct procedure Consent obtained: written (The risks, benefits, indications, potential complications, and alternatives were explained to the family and informed consent obtained by Dr. Gutierrez.) Time of procedure: 11:00 Performed by: physician link cutter Indications: diagnostic, therapeutic Contraindications: other patient had been on heparin prior to procedure. This was held the day before and pTT was monitored prior to the procedure Description: Indication: Patient requiring percutaneous placement of tracheostomy tube. Fiberoptic bronchoscopy required for clearance of secretions prior to the procedure, visualization of cannulization, and verification of airways status post procedure. After positioning of the endotracheal tube, the fiberoptic bronchoscope was introduced to the distal end of the endotracheal tube. The needle entry site in the trachea midline was visualized as was the placement of the guidewire into the distal trachea. Photographs were taken to confirm placement of the guidewire After placement of the tracheostomy tube, the bronchoscope was withdrawn from the endotracheal tube and introduced through the tracheostomy tube to confirm correct placement. The bronchoscope was then withdrawn to allow suturing of the tracheostomy tube into position. The bronchoscope was then introduced into the tracheostomy tube. There was considerable tracheal and bronchial collapse in all segments of the right and left lung. Bronchioalveolar lavage was performed using a total of 20 mL of saline. A small blood-tinged mucous plug was removed from the right main bronchus. The right and main left bronchus as well as the segmental branches of the right middle and right lower lobe and left upper, lingula and left lower lobes were examined with no blood or other mucous plugging. There were minimal secretions at the bj. There was no evidence of bronchial trauma on the final examination with the fiberoptic bronchoscope. After confirmation of position and securement of the tracheostomy tube the endotracheal tube was removed. The patient experienced no desaturation or complication during the procedure. Dr. Gutierrez was present for the entire procedure as he was performing a percutaneous tracheostomy placement Complications: none Patient tolerated procedure: well Post-procedure vital signs: reviewed and stable Comments: The patient received fentanyl and versed for conscious sedation with a secured airway. Once the patient was adequately sedated and with continuous BIS monitoring, vecuronium was administered for neuromuscular blockade. This was ordered, administered, and monitored by Dr. Gutierrez during my portion of the procedure
--- NOTE | 2017-05-21 12:02 | Procedure Note ---
Procedure Note Date of Service May 21, 2017. Procedure Note Critical Care Medicine Point of Care Bedside Ultrasound Procedure: Limited soft tissue ultrasound of the neck Procedure Date: May 21, 2017 Indication: Preoperative planning of percutaneous tracheostomy, evaluation for aberrant vasculature. Attending: Ector Gutierrez DO Resident/Physician Director [employer]: Not applicable Organs Examined: Trachea, laryngeal cartilage, tracheal cartilages, carotid, internal jugular, thyroid. The anterior neck was evaluated in the sagittal and transverse planes. The thyroid cartilage worsens were identified and inferior to those the first through fifth tracheal cartilages were identified. Utilizing color-flow evaluation no vasculature was noted in the sagittal plane or transverse plane Impression: No apparent vasculature in planned surgical location Images obtained are saved for permanent record
--- NOTE | 2017-05-21 12:07 | Procedure Note ---
Procedure Note Date of Service May 21, 2017. Procedure Note Critical Care Medicine Procedure Date: May 21, 2017 Procedure: percutaneous tracheostomy Pre-procedure Diagnosis: Acute on chronic respiratory failure, severe tracheomalacia, severe COPD Post-procedure Diagnosis: same as above Prior to Procedure: Informed Consent: The risks, benefits, indications, potential complications, and alternatives were explained to the patient/family and informed consent obtained. Attending Staff: Ector Gutierrez DO Resident/Physician Patient Care Secretary: Vaishnavi Ramirez Skin Prep: Cleansed with chlorhexidine. Anesthesia: 1% lidocaine with epinephrine Indications: Gino Clark is a 51-year-old male patient with severe COPD and end-stage tracheomalacia with recurrent acute on chronic respiratory failure, hypercarbic and hypoxic with bronchiectasis and severe atelectasis. Patient is undergoing elective percutaneous tracheostomy to facilitate clearing of airway secretions, easy mechanical ventilation, and facilitation of positive pressure ventilation secondary to intolerance of noninvasive ventilation. The identity of the patient was confirmed and a bedside time out was performed. Description of Procedure: After positioning and induction of IV general anesthesia, the neck was prepped with chlorhexidine and draped in a sterile fashion. The skin and subcutaneous tissue was infiltrated with 1% lidocaine with epinephrine. A needle was introduced into the third tracheal interspace under direct bronchoscopic visualization. A wire was then introduced through the needle and the needle removed. Dilation of the tract about the wire was then completed using the percutaneous dilators. A 6-0 Portex tracheostomy tube was then introduced over the wire into the trachea. After cuff inflation the ventilator circuit was connected to the tracheostomy tube. Breath sounds were present bilaterally. There was positive end-tidal confirmation the tracheostomy tube was secured to the neck with sutures and at tracheal tie. The patient's oral tube was removed. Complications: Brief desaturation into 80% when disconnecting from endotracheal tube to tracheostomy tube this immediately improved upon reconnection of the ventilator circuit. Findings: Severe tracheomalacia was again noted, there was no obvious postoperative bleeding externally nor internally on bronchoscopic examination, one small blood clot was suctioned from the distal airways Specimens: not applicable Estimated blood loss: Trace
--- NOTE | 2017-05-21 12:35 | DIAGNOSTIC IMAGING REPORT ---
KUB CLINICAL HISTORY: 51 years-old Male presenting with Verify placement of Coresafe NGT. TECHNIQUE: Single supine view of the chest and abdomen was obtained. COMPARISON: 07/19/2014. FINDINGS: A feeding catheter containing a guidewire descends below the diaphragm. Tip of the central venous catheter terminates in the mid SVC. Mild prominence of the cardiac silhouette as well as the pulmonary vasculature. Bibasilar hazy opacities. No gross evidence of bowel obstruction allowing for limited visualization of the abdomen. Dextrocurvature of the thoracolumbar junction. IMPRESSION: 1. Feeding catheter containing a guidewire distends below the diaphragm, incompletely visualized in the abdomen. Electronically signed by: Xavier Green M.D. 05/21/2017 12:33 PM Dictated Date/Time: 05/21/2017 12:32 PM
--- NOTE | 2017-05-21 12:44 | Critical Care Progress Note ---
Critical Care Progress Note Date of Service May 21, 2017. ICU Day ICU Day Number: [address] Gutierrez Subjective No overnight events, father and discussed with patient tracheostomy. Patient nods affirmatively with regard to proceeding with tracheostomy. Admits to irritated throat pain, denies additional pain Objective Laboratory Data - as noted Physical Exam: General -no obvious distress Eyes - EOMI No icterus, ENT -the tracheal tube present Lungs - No paradoxical chest wall movement, very coarse with rhonchi throughout , no wheezes or rales Heart - Reg rate and rhythm, Murmur present without rubs, clicks, or gallops appreciated Abdomen -soft nondistended Extremities - Edema present, pedal pulses intact, multiple missing toes, skin warm with normal peripheral perfusion Neuro - Alert Assessment & Plan PLAN: Resp: * Shortness of breath * Improved P to F ratio * Respiratory culture negative for bacteria at this time however patient had been on 24 hours of antibiotics * Will empirically treat with 10 days of Levaquin based on prior respiratory cultures, and treatment length secondary to structural lung disease * Monitor Troughs and QTc * Follow-up BAL results * Urine Legionella: Anuric, uncollected and canceled * Bronchodilators in place * Continue home regimen * Dr. stone following * Goal O2 Saturations >88% * Dynamic airway collapse, severe tracheomalacia * Trach percutaneous today Neuro/PSYCH * Continue home medications: Gabapentin, Sensipar, and Wellbutrin * Extensive discussion with patient and family regarding prognosis, treatment plan. * Will require extensive social work resources and placement CV: * Tachycardia: Resolved * Septic Shock 2/2 HAP * Hypotension resolved * Troponin elevated, similar to previous admission, possibly due to demand ischemia 2/2 hypotension. * Cardiology consult in place * Last ECHO: EF 60% Grade 1 diastolic dysfunction * Continue home medications including: * Norvasc, Lipitor, Lopressor * Monitor on telemetry Fluids/Renal: * ESRD on HD, HD completed yesterday * Minimize fluids; Concentrate where possible ID: * ABX discontinued to Levaquin Levaquin * Septic Shock: Hypotension resolved * Afebrile to date GI/Nutrition: * Cor safe tube placed * In adequate position * Start nova source renal , titrated to goal of 30 * Blanchard body weight 65 kg Heme: * DVT prophylaxis: 5000 heparin twice daily: Held this morning * Continue Pts Plavix Endocrine: * DM1 with hyperglycemia * Insulin infusion * Does have insulin pump; however, pt had it off when he came to the hospital * Transitioned to subcutaneous insulin * Hypothyroidism * Continue Synthroid 112mcg * Solu-Medrol initially started during acute decompensation of respiratory failure * Will attempt rapid wean over the next days for total of 5 days of effective therapy secondary to difficulties with wound healing as patient is postop day 0 from percutaneous tracheostomy CODE STATUS: DO NOT RESUSCITATE in event of cardiac arrest I have personally spent 35 minutes of critical care time in the direct management of this patient. This is a life/limb threatening event. This includes time spent evaluating patient, direct bedside care, chart review, placing orders, interpretation of diagnostic studies, discussion with consultants, patient, and/or family members regarding treatment decisions, as well as other required patient management activities. This time is exclusive of all separately billable procedures, and teaching time and separate from and in addition to any other critical care service time. Consults & Procedures Consultants: Cardiology: Marv Mental Health: Tian Pulmonology: Suzy Nephrology: Ruslan Data Medications: Current Inpatient Medications Medications (Trade) Dose Ordered Sig/Etta Route Start Time Stop Time Status Last Admin Dose Admin Miscellaneous Information (Consult) 1 ea UD PRN N/A 05/17/17 19:00 06/16/17 18:59 Atorvastatin Calcium (Lipitor Tab) 40 mg HS PO 05/17/17 21:00 06/16/17 20:59 05/20/17 20:55 40 MG Bupropion HCl (Wellbutrin-Sr Tab) 200 mg QPM PO 05/17/17 21:00 06/16/17 20:59 05/20/17 20:55 200 MG Clopidogrel Bisulfate (plAVix TAB) 75 mg Q2D@0900 PO 05/18/17 09:00 06/17/17 08:59 05/20/17 08:01 75 MG Gabapentin (Neurontin Cap) 100 mg BID PO 05/17/17 21:00 06/16/17 20:59 05/21/17 08:16 100 MG Albuterol/ Ipratropium (Duoneb) 3 ml QID PRN INH 05/17/17 20:15 06/16/17 20:14 05/19/17 04:00 3 ML Levothyroxine Sodium (Synthroid Tab) 112 mcg DAILYBB PO 05/18/17 06:00 06/17/17 05:59 05/21/17 05:24 112 MCG Miscellaneous Information (Order Awaiting Action) 1 ea QS N/A 05/18/17 00:00 06/17/17 00:00 Sevelamer HCl (Renagel Tab) 1,600 mg TIDM PO 05/18/17 07:15 06/17/17 07:14 05/18/17 15:56 1,600 MG Lactobacillus Acidophilus (Floranex Tab) 4 tab TIDM PO 05/18/17 07:15 06/17/17 07:59 05/21/17 08:16 4 TAB Acetaminophen (Tylenol Tab) 650 mg Q4H PRN PO 05/17/17 20:15 06/16/17 20:14 Glucose (Glucose 40% Gel) 15-30 GRAMS 15 GRAMS... UD PRN PO 05/17/17 20:15 06/16/17 20:14 Glucose (Glucose Chew Tab) 4-8 Tablets 4 Tabl... UD PRN PO 05/17/17 20:15 06/16/17 20:14 Dextrose (Dextrose 50% 50ML Syringe) 25-50ML OF 50% DW IV FOR... UD PRN IV 05/17/17 20:15 06/16/17 20:14 05/19/17 01:05 25 ML Glucagon (Glucagon Inj) 1 mg UD PRN SQ 05/17/17 20:15 06/16/17 20:14 Miscellaneous Information (Consult Glycemic Management Pharmacy) 1 ea UD PRN N/A 05/17/17 20:52 06/16/17 20:51 Levofloxacin 500 mg/Prmx 100 ml @ 100 mls/hr Q48H IV 05/19/17 20:00 05/24/17 19:59 05/19/17 20:03 100 MLS/HR Norepinephrine Bitartrate 8 mg/ Dextrose 508 ml @ 0 mls/hr Q0M PRN IV 05/17/17 20:31 06/16/17 23:59 05/20/17 02:59 9.6 MLS/HR Insulin Human Regular 250 units/ Sodium Chloride 252.5 ml @ 0 mls/hr Q24H IV 05/17/17 22:45 06/16/17 22:44 05/21/17 00:20 1 MLS/HR Insulin Aspart (novoLOG ASPART) SLIDING SCALE PCHS SC 05/18/17 08:00 06/17/17 07:59 05/18/17 17:14 5 UNITS Miscellaneous Information (Pending Order) 1 ea QS N/A 05/18/17 16:00 06/17/17 15:59 05/19/17 08:00 1 EA Midazolam HCl (Versed Inj) 2 mg Q2H PRN IV 05/19/17 07:15 06/18/17 07:14 05/21/17 10:55 2 MG Fentanyl Citrate (Fentanyl Inj) 50 mcg Q2H PRN IV 05/19/17 07:15 06/02/17 07:14 05/21/17 10:55 100 MCG Ioversol (Optiray 320) 100 ml UD PRN IV 05/19/17 08:15 05/23/17 08:14 Imipenem/ Cilastatin Sodium 500 mg/Dextrose 110 ml @ 110 mls/hr Q12@1000,2200 IV 05/19/17 22:00 05/26/17 21:59 05/21/17 09:58 110 MLS/HR Caspofungin 50 mg/ Sodium Chloride 260 ml @ 260 mls/hr DAILY@0900 IV 05/20/17 09:00 06/19/17 08:59 05/21/17 08:16 260 MLS/HR Thiamine HCl 200 mg/Sodium Chloride 52 ml @ 210 mls/hr Q12@1000,2200 IV 05/19/17 11:00 05/22/17 22:15 05/21/17 09:58 210 MLS/HR Ascorbic Acid 1500 mg/Sodium Chloride 103 ml @ 206 mls/hr Q6 IV 05/19/17 12:00 05/23/17 06:29 05/21/17 05:21 206 MLS/HR Levalbuterol (Xopenex Hfa Inhaler) 4 puffs Q8R INH 05/19/17 16:00 06/18/17 15:59 05/21/17 07:03 4 PUFFS Methylprednisolone Sodium Succinate 40 mg/Syringe 0.64 ml @ 1.5 mls/min Q8 IV 05/20/17 14:00 06/19/17 13:59 05/21/17 05:24 1.5 MLS/MIN Heparin Sodium (Porcine) (Heparin Sq 5000 Unit/0.5ml) 5,000 unit BID SC 05/20/17 21:00 06/19/17 20:59 05/20/17 20:57 5,000 UNIT Epinephrine HCl (Adrenalin Inj) 30 mg UD PRN IV 05/21/17 11:30 05/21/17 18:00 Vital Signs: Date Time Temp Pulse Resp B/P (MAP) Pulse Ox O2 Delivery O2 Flow Rate FiO2 05/21/17 11:50 89 114/74 100 Mechanical Ventilator 100 05/21/17 11:45 92 114/74 100 Mechanical Ventilator 100 05/21/17 11:40 90 110/74 100 Mechanical Ventilator 100 05/21/17 11:38 99 136/83 100 Mechanical Ventilator 100 05/21/17 11:35 107 185/108 100 Mechanical Ventilator 100 05/21/17 11:33 121 184/108 92 Mechanical Ventilator 100 05/21/17 11:32 126 184/108 66 Mechanical Ventilator 100 05/21/17 11:30 138 160/104 87 Mechanical Ventilator 100 05/21/17 11:25 100 154/100 100 Mechanical Ventilator 100 05/21/17 11:20 96 117/71 100 Mechanical Ventilator 100 05/21/17 11:15 77 113/74 100 Mechanical Ventilator 100 05/21/17 11:10 80 16 109/72 94 Mechanical Ventilator 100 05/21/17 11:00 80 16 93 Mechanical Ventilator 100 05/21/17 10:00 83 20 147/85 (105) 100 Mechanical Ventilator 35 05/21/17 08:00 100 Mechanical Ventilator 35 05/21/17 08:00 35 05/21/17 08:00 36.7 89 22 155/96 (115) 100 Mechanical Ventilator 35 05/21/17 06:58 35 05/21/17 05:31 85 18 137/92 (107) 99 05/21/17 05:16 35 05/21/17 05:01 71 18 136/85 (102) 100 05/21/17 04:02 36.7 82 16 140/96 (111) 99 Mechanical Ventilator 35 05/21/17 04:00 98 Mechanical Ventilator 35 05/21/17 04:00 35 05/21/17 03:01 71 20 130/85 (100) 100 Mechanical Ventilator 35 3/3/18 02:23 35 3/3/18 02:01 68 16 135/82 (99) 100 Mechanical Ventilator 35 3/3/18 01:01 69 17 121/78 (92) 100 Mechanical Ventilator 35 3//18 00:01 36.5 72 20 126/78 (94) 100 Mechanical Ventilator 35 3/2/18 23:59 98 Mechanical Ventilator 35 3/2/18 23:59 35 3/2/18 23:08 35 3/2/18 23:01 70 18 113/67 (82) 99 Mechanical Ventilator 35 3/2/18 22:01 79 16 140/85 (103) 100 Mechanical Ventilator 35 3/2/18 21:01 80 17 119/74 (89) 99 Mechanical Ventilator 35 3/2/18 20:10 35 //18 20:01 36.7 84 20 129/76 (93) 100 Mechanical Ventilator 35 /2/18 20:00 98 Mechanical Ventilator 35 /2/18 20:00 35 3/2/18 19:01 72 16 131/73 (92) 98 Mechanical Ventilator 35 /2/18 18:00 77 16 127/76 (93) 97 Mechanical Ventilator 35 /2/18 17:51 35 /2/18 16:00 Mechanical Ventilator 35 /2/18 16:00 36.7 80 12 142/93 (109) 98 Mechanical Ventilator 35 /18 16:00 35 /2/18 14:57 36.0 71 133/77 (95) 18 14:45 68 114/73 /2/18 14:30 71 109/69 18 14:15 68 122/73 2/18 14:07 35 /2/18 14:00 68 122/77 3/2/18 14:00 71 17 122/77 (92) 99 Mechanical Ventilator 35 218 13:45 75 115/76 2/18 13:30 76 127/77 18 13:15 76 117/71 218 13:00 79 125/82 218 12:45 80 116/72 218 12:30 72 117/72 /2/18 12:15 70 118/73 Laboratory Results: Last 24 Hours Test 05/20/17 13:48 05/20/17 14:45 05/20/17 15:58 05/20/17 16:48 Activated Partial Thromboplast Time 43.7 SECONDS Partial Thromboplastin Ratio 1.7 Bedside Glucose 91 mg/dl 100 mg/dl 113 mg/dl Test 05/20/17 17:58 05/20/17 19:22 05/20/17 19:58 05/20/17 20:59 Bedside Glucose 105 mg/dl 109 mg/dl 138 mg/dl 145 mg/dl Test 05/20/17 22:05 05/20/17 23:09 05/21/17 00:09 05/21/17 02:06 Bedside Glucose 131 mg/dl 163 mg/dl 135 mg/dl 165 mg/dl Test 05/21/17 04:01 05/21/17 05:31 05/21/17 08:14 Bedside Glucose 129 mg/dl 155 mg/dl Activated Partial Thromboplast Time 40.4 SECONDS Partial Thromboplastin Ratio 1.6 Sodium Level 136 mmol/L Potassium Level 4.6 mmol/L Chloride Level 101 mmol/L Carbon Dioxide Level 26 mmol/L Anion Gap 9.0 mmol/L Blood Urea Nitrogen 31 mg/dl Creatinine 5.98 mg/dl Est Creatinine Clear Calc Drug Dose 16.5 ml/min Estimated GFR () 11.6 Estimated GFR (Non- 10.0 BUN/Creatinine Ratio 5.2 Random Glucose 133 mg/dl Calcium Level 7.9 mg/dl Total Bilirubin 0.6 mg/dl Direct Bilirubin 0.1 mg/dl Aspartate Amino Transf (AST/SGOT) 31 U/L Alanine Aminotransferase (ALT/SGPT) 22 U/L Alkaline Phosphatase 115 U/L Total Protein 6.0 gm/dl Albumin 2.1 gm/dl Random Vancomycin Level 19.4 mcg/ml
--- NOTE | 2017-05-21 12:50 | DIAGNOSTIC IMAGING REPORT ---
CHEST ONE VIEW PORTABLE CLINICAL HISTORY: 51 years-old Male presenting with hypoxia. TECHNIQUE: Portable semiupright AP view of the chest was obtained. COMPARISON: 05/20/2017. FINDINGS: Tracheostomy tube now in place terminating in the upper thoracic trachea. Right internal jugular central venous catheter remains in the mid SVC. Feeding catheter containing guidewire descends below the diaphragm. Mild prominence of the cardiac silhouette, unchanged. Dense consolidation in the left retrocardiac region as on prior exam. Less extensive perihilar central opacities. Small left pleural effusion suspected. No pneumothorax. Scoliosis. Upper abdomen normal. IMPRESSION: 1. Interval tracheostomy tube placement. Feeding catheter containing guidewire descends below the diaphragm, terminus not visualized. 2. Unchanged dense left lower lobe consolidation with left pleural effusion. 3. Mild superimposed pulmonary edema suspected. Electronically signed by: Xavier Green M.D. 05/21/2017 12:49 PM Dictated Date/Time: 05/21/2017 12:47 PM
--- NOTE | 2017-05-21 14:04 | Post Sedation Assessment ---
Post Sedation Assessment General Date of Sedation May 21, 2017. Vital Signs: Vital Signs Past 12 Hours Date Time Temp Pulse Resp B/P (MAP) Pulse Ox O2 Delivery O2 Flow Rate FiO2 05/21/17 12:20 158 198/138 98 Mechanical Ventilator 30 05/21/17 12:15 86 120/74 96 Mechanical Ventilator 30 05/21/17 12:10 87 103/67 96 Mechanical Ventilator 30 05/21/17 12:07 40 05/21/17 12:05 86 105/67 98 Mechanical Ventilator 30 05/21/17 12:00 85 103/69 100 Mechanical Ventilator 100 05/21/17 12:00 35 05/21/17 12:00 100 Mechanical Ventilator 35 05/21/17 12:00 36.7 85 16 105/67 (80) 100 Mechanical Ventilator 35 05/21/17 11:55 84 109/71 100 Mechanical Ventilator 100 05/21/17 11:50 89 114/74 100 Mechanical Ventilator 100 05/21/17 11:45 92 114/74 100 Mechanical Ventilator 100 05/21/17 11:40 90 110/74 100 Mechanical Ventilator 100 05/21/17 11:38 99 136/83 100 Mechanical Ventilator 100 05/21/17 11:35 107 185/108 100 Mechanical Ventilator 100 05/21/17 11:33 121 184/108 92 Mechanical Ventilator 100 05/21/17 11:32 126 184/108 66 Mechanical Ventilator 100 05/21/17 11:30 138 160/104 87 Mechanical Ventilator 100 05/21/17 11:25 100 154/100 100 Mechanical Ventilator 100 05/21/17 11:20 96 117/71 100 Mechanical Ventilator 100 05/21/17 11:15 77 113/74 100 Mechanical Ventilator 100 05/21/17 11:10 80 16 109/72 94 Mechanical Ventilator 100 05/21/17 11:00 80 16 93 Mechanical Ventilator 100 05/21/17 10:00 83 20 147/85 (105) 100 Mechanical Ventilator 35 05/21/17 08:00 100 Mechanical Ventilator 35 05/21/17 08:00 35 05/21/17 08:00 36.7 89 22 155/96 (115) 100 Mechanical Ventilator 35 05/21/17 06:58 35 05/21/17 05:31 85 18 137/92 (107) 99 05/21/17 05:16 35 05/21/17 05:01 71 18 136/85 (102) 100 05/21/17 04:02 36.7 82 16 140/96 (111) 99 Mechanical Ventilator 35 05/21/17 04:00 98 Mechanical Ventilator 35 05/21/17 04:00 35 05/21/17 03:01 71 20 130/85 (100) 100 Mechanical Ventilator 35 05/21/17 02:23 35 Post Procedure Recovery Score Activity: (0) Moves 0 extremities * Respiration: (2) Deep breath/cough Circulation: (2) +/-20% PreAnes Value Consciousness: (0) Nonresponsive Oxygen Saturation: (1) O2 needed for >90% Post Anesthesia Score: 5 Discharge Sedation Level of Care: Higher Level of Care Post Sedation Plan Patient is discharged to the ICU continue mechanical ventilation Procedure start time 1110 procedural end time 1145 total time 35 minutes
[2017-05-21] MEDS ORDERED: INSULIN GLARGINE SOLOSTAR 100 UNITS/ML 3 ML PEN SC ONE (14:30)
--- NOTE | 2017-05-21 14:30 | Pharmacy Progress Note ---
Pharmacy Glycemic Short Note 2 Date of Service May 21, 2017. OUTPATIENT ANTIDIABETIC REGIMEN: * NovoLog insulin pump * Basal = 14.4 units/day * CF = 20mg/dl/unit * CR = 1 unit for every 12g CHO consumes * [place] Dr Sum[place] [facility] [place] ASSESS[place]: * 51yo Type 1 diabetic male well known to pharmacy from previous admissions/ glycemic consults. Most recently during his 04/30/17 admission. * Pt was initiated on IV insulin infusion for both admissions. Successful transition last admission with Lantus 25 units Q24hrs while on Solumedrol 20mg IV Q8hrs and then tapered to prednisone 40mg PO daily. * Currently, IV insulin infusion rate is stable at 1 unit/hr. No change for almost 24hrs. * 1 unit hr * 24 hrs = ~ 25 units of basal insulin * No PO intake over the past 24hrs therefore IV insulin infusion is serving as "stressed" basal insulin dosing. * Will initiate transition from IV insulin infusion to SQ basal bolus insulin regimen per protocol PLAN FOR INPATIENT GLYCEMIC CONTROL: * Transition from IV insulin infusion to SQ basal bolus insulin regimen * Basal insulin * Give Lantus 25 units SQ Q24hrs - first dose NOW while IV insulin infusion is still running * D/C IV Insulin Infusion when held per calculator or 6 hrs after first Lantus dose given, whichever happens sooner. * Bolus insulin {stressed outpatient CR dosing for steroid induced hyperglycemia } * NovoLog per scale ACHS or Q6hrs while NPO * Goal Range: Low 120 mg/dL - High 150 mg/dL * Correction Factor: 20 mg/dL/unit * Nutritional / Prandial insulin per carb ratio of 1 unit per 9 grams CHO consumed
[2017-05-21] MEDS ORDERED: FENTANYL CITRATE INJ 50 MCG/1 ML 2 ML VIAL IV ONE (15:45)
[2017-05-21] MEDS ORDERED: INSULIN ASPART 100 UNITS/ML 3 ML PEN SC SCH (16:00)
[2017-05-21] MEDS ORDERED: METOPROLOL TARTRATE 1 MG/ML VIAL ONE (16:07)
[2017-05-21] MEDS ORDERED: METOPROLOL TARTRATE 1 MG/ML VIAL IV STA (16:13)
[2017-05-21] MEDS ORDERED: MIDAZOLAM HCL 5 MG/ML 1 ML VIAL IV STA (16:13)
[2017-05-21] MEDS ORDERED: HYDROmorphone INJ 1 MG/ML SYR ONE (17:46)
[2017-05-21 18:11] LABS: BASO % 0.1 %; BASO ABS # 0.01 K/uL (0-0.2); HEMATOCRIT 34.4 % (42-52); HEMOGLOBIN 11.1 g/dL (14.0-18.0); IG# 0.07 K/uL (0.00-0.02); LYMPH % 2.6 %; LYMPH ABS # 0.43 K/uL (1.2-3.4); MEAN CELL VOLUME 104.9 fL (80-100); MEAN CORPUSCULAR HEMOGLOBIN 33.8 pg (25-34); MEAN CORPUSCULAR HGB CONC 32.3 g/dl (32-36); MEAN PLATELET VOLUME 10.2 fL (7.4-10.4); MONO % 3.6 %; MONO ABS # 0.59 K/uL (0.11-0.59); NEUT % 93.3 %; NEUT ABS # 15.35 K/uL (1.4-6.5); PLATELET COUNT 222 K/uL (130-400); RED CELL DISTRIBUTION WIDTH CV 14.7 % (11.5-14.5); RED CELL DISTRIBUTION WIDTH SD 56.5 fL (36.4-46.3); WHITE BLOOD COUNT 16.45 K/uL (4.8-10.8)
[2017-05-21] MEDS: NITROGLYCERIN 2% OINTMENT 30GM TUBE EXT SCH (18:18)
--- NOTE | 2017-05-21 18:19 | DIAGNOSTIC IMAGING REPORT ---
CHEST ONE VIEW PORTABLE CLINICAL HISTORY: 51 years-old Male presenting with recent trach placement, distress, eval infiltrates/pneumo/etc. TECHNIQUE: Portable upright AP view of the chest was obtained. COMPARISON: 05/21/2017 at 12:12 PM. FINDINGS: The guidewire for the feeding catheter has been removed. Right IJ central line and tracheostomy tube unchanged. Persistent mild prominence of the cardiac silhouette. Patchy mid to basilar predominant opacities more dense on the left. These are unchanged. No pneumothorax. Scoliotic curvature of the spine. Upper abdomen normal. IMPRESSION: 1. No significant change since the prior exam. Persistent mid to basilar predominant infiltrates greater on the left. 2. Suspected left pleural effusion. 3. Possible superimposed pulmonary edema. Electronically signed by: Xavier Green M.D. 05/21/2017 6:18 PM Dictated Date/Time: 05/21/2017 6:15 PM
--- NOTE | 2017-05-21 18:28 | Progress Note ---
Subjective Date of Service: May 21, 2017. Subjective Pt evaluation today including: physical exam, chart review, lab review, review of studies (EKG, cxr, procedure notes), conversation w/ bus info consultant (critical care), review of inpatient medication list Pain: neck pain PO Intake: enteral tube feedings events of last 24 hours noted patient underwent trach placement via bronchoscopic guidance this am by Dr. Gutierrez I saw the patient in the early afternoon and he seemed very uncomfortable he was mouthing "help, help" when asked where he was hurting he reported that it was his neck during the visit he suddenly developed tachycardia to HR of about 155 BPM I could not see p waves he had received copious amounts of fentanyl throughout the day for his procedure and despite such was still uncomfortable unable to obtain ROS otherwise due to trach/intubated status Problem List Medical Problems: (1) Bronchitis Status: Acute (2) Change in mental status Status: Acute (3) Contusion of head Status: Acute (4) End stage renal disease Status: Acute (5) ESRD (end stage renal disease) on dialysis Status: Acute (6) Fall Status: Acute (7) HCAP (healthcare-associated pneumonia) Status: Acute (8) Heart murmur Status: Acute (9) Hypoglycemia Status: Acute (10) Hypoglycemia Status: Acute (11) Hypoglycemia Status: Acute (12) Hypoglycemia Status: Acute (13) Hypoglycemia Status: Acute (14) Hypoglycemia Status: Acute (15) Hypokalemia Status: Acute (16) Hypotension Status: Acute (17) Hypoxemia Status: Acute (18) Hypoxia Status: Acute (19) NSTEMI (non-ST elevated myocardial infarction) Status: Acute (20) Right lower lobe pneumonia Status: Acute (21) Right middle lobe pneumonia Status: Acute (22) Sepsis Status: Acute (23) Sepsis Status: Acute (24) SOB (shortness of breath) Status: Acute (25) SOB (shortness of breath) Status: Acute (26) Syncope Status: Acute (27) Traumatic hematoma of forehead Status: Acute Objective Vital Signs Date Time Temp Pulse Resp B/P (MAP) Pulse Ox O2 Delivery O2 Flow Rate FiO2 05/21/17 16:47 40 05/21/17 16:13 152 159/96 05/21/17 16:00 40 05/21/17 16:00 110 18 159/96 (117) 96 Mechanical Ventilator 40 05/21/17 16:00 96 Mechanical Ventilator 40 05/21/17 14:00 120 16 122/75 (91) 97 Mechanical Ventilator 35 05/21/17 12:20 158 198/138 98 Mechanical Ventilator 30 05/21/17 12:15 86 120/74 96 Mechanical Ventilator 30 05/21/17 12:10 87 103/67 96 Mechanical Ventilator 30 05/21/17 12:07 40 05/21/17 12:05 86 105/67 98 Mechanical Ventilator 30 05/21/17 12:00 85 103/69 100 Mechanical Ventilator 100 05/21/17 12:00 35 05/21/17 12:00 100 Mechanical Ventilator 35 05/21/17 12:00 36.7 85 16 105/67 (80) 100 Mechanical Ventilator 35 05/21/17 11:55 84 109/71 100 Mechanical Ventilator 100 05/21/17 11:50 89 114/74 100 Mechanical Ventilator 100 05/21/17 11:45 92 114/74 100 Mechanical Ventilator 100 05/21/17 11:40 90 110/74 100 Mechanical Ventilator 100 05/21/17 11:38 99 136/83 100 Mechanical Ventilator 100 05/21/17 11:35 107 185/108 100 Mechanical Ventilator 100 05/21/17 11:33 121 184/108 92 Mechanical Ventilator 100 05/21/17 11:32 126 184/108 66 Mechanical Ventilator 100 05/21/17 11:30 138 160/104 87 Mechanical Ventilator 100 05/21/17 11:25 100 154/100 100 Mechanical Ventilator 100 05/21/17 11:20 96 117/71 100 Mechanical Ventilator 100 05/21/17 11:15 77 113/74 100 Mechanical Ventilator 100 05/21/17 11:10 80 16 109/72 94 Mechanical Ventilator 100 05/21/17 11:00 80 16 93 Mechanical Ventilator 100 05/21/17 10:00 83 20 147/85 (105) 100 Mechanical Ventilator 35 05/21/17 08:00 100 Mechanical Ventilator 35 05/21/17 08:00 35 05/21/17 08:00 36.7 89 22 155/96 (115) 100 Mechanical Ventilator 35 05/21/17 06:58 35 05/21/17 05:31 85 18 137/92 (107) 99 05/21/17 05:16 35 05/21/17 05:01 71 18 136/85 (102) 100 05/21/17 04:02 36.7 82 16 140/96 (111) 99 Mechanical Ventilator 35 05/21/17 04:00 98 Mechanical Ventilator 35 05/21/17 04:00 35 05/21/17 03:01 71 20 130/85 (100) 100 Mechanical Ventilator 35 05/21/17 02:23 35 05/21/17 02:01 68 16 135/82 (99) 100 Mechanical Ventilator 35 05/21/17 01:01 69 17 121/78 (92) 100 Mechanical Ventilator 35 05/21/17 00:01 36.5 72 20 126/78 (94) 100 Mechanical Ventilator 35 05/20/17 23:59 98 Mechanical Ventilator 35 05/20/17 23:59 35 05/20/17 23:08 35 05/20/17 23:01 70 18 113/67 (82) 99 Mechanical Ventilator 35 05/20/17 22:01 79 16 140/85 (103) 100 Mechanical Ventilator 35 05/20/17 21:01 80 17 119/74 (89) 99 Mechanical Ventilator 35 05/20/17 20:10 35 05/20/17 20:01 36.7 84 20 129/76 (93) 100 Mechanical Ventilator 35 05/20/17 20:00 98 Mechanical Ventilator 35 05/20/17 20:00 35 05/20/17 19:01 72 16 131/73 (92) 98 Mechanical Ventilator 35 Physical Exam General Appearance: + pertinent finding (chronically ill-appearing, looks older than stated age, in distress due to suspected pain) ENT: + pertinent finding (MMM in the oral cavity) Neck: + pertinent finding (no JVD; trach in place, no hematoma or obvious bleeding noted) Respiratory/Chest: + pertinent finding (course BS b/l, no obvious rales ) Cardiovascular: no gallop, + tachycardia, + systolic murmur (2/6 LSB) Abdomen: no organomegaly, + abnormal bowel sounds (mildly decreased ), + distended Extremities: no pedal edema, + pertinent finding (TMA of left foot, multiple toes absent right foot; pulses at best 1+ b/l ) Neurologic/Psychiatric: + pertinent finding (awake, trying to mouth certain words, moving all 4 limbs spontaneously ) Skin: + pallor Laboratory Results Last 24 Hours Test 05/20/17 19:22 05/20/17 19:58 05/20/17 20:59 05/20/17 22:05 Bedside Glucose 109 mg/dl 138 mg/dl 145 mg/dl 131 mg/dl Test 05/20/17 23:09 05/21/17 00:09 05/21/17 02:06 05/21/17 04:01 Bedside Glucose 163 mg/dl 135 mg/dl 165 mg/dl 129 mg/dl Test 05/21/17 05:31 05/21/17 08:14 05/21/17 12:05 05/21/17 16:20 Activated Partial Thromboplast Time 40.4 SECONDS Partial Thromboplastin Ratio 1.6 Sodium Level 136 mmol/L Potassium Level 4.6 mmol/L Chloride Level 101 mmol/L Carbon Dioxide Level 26 mmol/L Anion Gap 9.0 mmol/L Blood Urea Nitrogen 31 mg/dl Creatinine 5.98 mg/dl Est Creatinine Clear Calc Drug Dose 16.5 ml/min Estimated GFR () 11.6 Estimated GFR (Non- 10.0 BUN/Creatinine Ratio 5.2 Random Glucose 133 mg/dl Calcium Level 7.9 mg/dl Total Bilirubin 0.6 mg/dl Direct Bilirubin 0.1 mg/dl Aspartate Amino Transf (AST/SGOT) 31 U/L Alanine Aminotransferase (ALT/SGPT) 22 U/L Alkaline Phosphatase 115 U/L Total Protein 6.0 gm/dl Albumin 2.1 gm/dl Random Vancomycin Level 19.4 mcg/ml Bedside Glucose 155 mg/dl 176 mg/dl 289 mg/dl Test 05/21/17 17:54 Assessment and Plan 51yo male with numerous medical problems - T1DM on pump, tracheomalacia/ bronchiectasis/COPD, PAD, chronic diastolic CHF - [facility] hospital admission for HCAP. Readmitted for acute/chronic hypoxic/hypercarbic respiratory failure and septic shock 2nd to LLL pneumonia. After weaning of pressors he was transferred to the tele floor on 05/18/17. Unfortunately he had worsening respiratory status shortly after transfer to the floor, requiring intubation and transfer back to the ICU. 1. acute/chronic hypercarbic/hypoxic respiratory failure - 2nd to LLL pneumonia , presumably gram negative etiology, as well as COPD exacerbation/ bronchiectasis exacerbation. He remains on broad-spectrum IV abx including levaquin, Imipenem, and Caspofungin. All cultures to date are w/o a specific pathogen. He is s/p tracheostomy placement today by Dr. Gutierrez due to severe tracheomalacia and dynamic airway collapse. He remains on IV solumedrol as well. Defer vent management to Dr. Gutierrez. 2. T1DM - currently on insulin drip; transitioning to basal/bolus insulin per recommendations of pharmacy glycemic bus info consultant. 3. NSTEMI - unclear if type 1 or type 2 GA. Given his PAD, ESRD, etc he likely does have underlying CAD. He continues with inferior wall T wave inversions. Echo with grossly normal LV function. Completed 48 hours of heparin infusion. Remains on plavix, statin. Consider restarting low-dose beta piedad. 4. ESRD on HD //Tue - appreciate nephrology assistance with HD needs. 5. chronic diastolic CHF - cxr and clinically he is w/o decompensation. 6. HTN - consider resuming home dose of metoprolol, especially in light of elevated troponin. 7. PAD - noted - plavix, statin, BB. 8. hypothyroidism - compensated; normal TSH; cont synthroid. 9. DVT proph - heparin BID. 10. diabetic peripheral neuropathy - gabapentin low-dose. 11. depression - would resume wellbutrin. 12. tachycardia - EKG - suspect 2:1 a. flutter. ICU attending gave lopressor 5mg IV x1 with mild improvement. Consider diltiazem drip for rate control. 13. recent septic shock - resolved. 14. protein calorie malnutrition - likely at least moderate - receiving tube feedings. Continued [facility] stay due to: abnormal vital signs, inadequate po fluid intake, inadequate oral pain control, ambulation difficulties, multiple IV medications needed, other (s/p trach placement) Discharge planning: uncertain
[2017-05-21 18:40] LABS: CALCIUM 7.9 mg/dl (8.5-10.1); CREATININE 6.86 mg/dl (0.60-1.40); POTASSIUM 5.2 mmol/L (3.5-5.1)
[2017-05-21] MEDS ORDERED: DC IV INSULIN INFUSION ONE (20:30)
[2017-05-21] MEDS: LEVOFLOXACIN / D5W 500 MG in PREMIXED IN D5W 100 ML IV SCH (20:51)
[2017-05-21] MEDS: ATORVASTATIN 40 MG TAB PO SCH (20:53)
[2017-05-21] MEDS: BuPROPion SR 100 MG TABCR PO SCH (20:54)
[2017-05-22] VITALS (21 sets, daily range): BP systolic 107–153; BP diastolic 72–97; PULSE 76–102; TEMP 36.4–36.9; O2SAT 91–99
[2017-05-22] MEDS: ASCORBIC ACID INJ 1,500 MG in NSS 100 ML IV SCH ×2 (00:52→05:44)
[2017-05-22] MEDS: INSULIN ASPART 100 UNITS/ML 3 ML PEN SC SCH ×6 (00:58→20:00)
[2017-05-22] MEDS ORDERED: INSULIN GLARGINE SOLOSTAR 100 UNITS/ML 3 ML PEN SC ONE (04:45)
[2017-05-22] MEDS: MIDAZOLAM HCL 1 MG/ML 2ML VIAL IV PRN ×2 (04:58→21:24)
[2017-05-22] MEDS: LEVOTHYROXINE 112 MCG TAB PO SCH (05:43)
[2017-05-22] MEDS: METHYLPREDNISOLONE IV 40 MG in SYRINGE 0 ML IV SCH (05:43)
[2017-05-22 05:50] LABS: BASO % 0.1 %; BASO ABS # 0.01 K/uL (0-0.2); HEMATOCRIT 29.8 % (42-52); HEMOGLOBIN 9.7 g/dL (14.0-18.0); IG# 0.04 K/uL (0.00-0.02); LYMPH % 4.8 %; LYMPH ABS # 0.44 K/uL (1.2-3.4); MEAN CELL VOLUME 102.8 fL (80-100); MEAN CORPUSCULAR HEMOGLOBIN 33.4 pg (25-34); MEAN CORPUSCULAR HGB CONC 32.6 g/dl (32-36); MEAN PLATELET VOLUME 10.2 fL (7.4-10.4); MONO % 5.9 %; MONO ABS # 0.54 K/uL (0.11-0.59); NEUT % 88.8 %; NEUT ABS # 8.12 K/uL (1.4-6.5); NUCLEATED RED BLOOD CELL ABS 0.02 K/uL (0-0); PLATELET COUNT 167 K/uL (130-400); RED CELL DISTRIBUTION WIDTH CV 14.7 % (11.5-14.5); WHITE BLOOD COUNT 9.15 K/uL (4.8-10.8)
[2017-05-22 05:55] LABS: PTT PATIENT 35.9 SECONDS (21.0-31.0)
[2017-05-22] MEDS: NITROGLYCERIN 2% OINTMENT 30GM TUBE EXT SCH ×4 (06:00→18:23)
[2017-05-22 06:19] LABS: ALBUMIN 2.3 gm/dl (3.4-5.0); CALCIUM 8.3 mg/dl (8.5-10.1); CREATININE 7.46 mg/dl (0.60-1.40); POTASSIUM 4.9 mmol/L (3.5-5.1); TOTAL PROTEIN 6.2 gm/dl (6.4-8.2)
[2017-05-22] MEDS: LEValbuterol HFA 15GM INHALER INH SCH ×3 (07:30→23:22)
[2017-05-22] MEDS: BREO ELLIPTA: ORDER AWAITING ACTION SCH ×2 (08:00→16:00)
[2017-05-22] MEDS: SEVELAMER HYDROCH 800 MG TAB PO SCH ×3 (08:14→16:16)
[2017-05-22] MEDS: LACTOBACILLUS ACIDOPHILUS (FLORANEX) TAB PO SCH ×3 (08:15→16:16)
[2017-05-22] MEDS: CLOPIDOGREL BISULFATE 75 MG TAB PO SCH (08:16)
[2017-05-22] MEDS: HEPARIN SOD 5000 UNIT/0.5 ML CARP SC SCH ×2 (08:16→20:14)
[2017-05-22] MEDS: GABAPENTIN 100 MG CAP PO SCH ×2 (08:16→20:13)
[2017-05-22] MEDS ORDERED: NOVASOURCE RENAL 1000ML BAG PO PRN (09:00)
[2017-05-22] MEDS ORDERED: INSULIN GLARGINE SOLOSTAR 100 UNITS/ML 3 ML PEN SC SCH (09:00)
[2017-05-22] MEDS: FENTANYL CITRATE INJ 50 MCG/1 ML 2 ML VIAL IV PRN ×2 (09:29→23:38)
[2017-05-22] MEDS: THIAMINE HCL INJ 200 MG in NSS 50ML IV SCH (09:32)
--- NOTE | 2017-05-22 10:52 | Critical Care Progress Note ---
Critical Care Progress Note Date of Service May 22, 2017. ICU Day ICU Day Number: [address] Gutierrez Subjective Episode of tachycardia yesterday, this occurs when he is extremely anxious. Reviewed prior notes. In reviewint has had over 100 EMS calls in 2017, and over 75 EMS calls in 2016 reportedly secondary to hypoglycemia with coma. After receiving treatment the patient repeatedly refuses transport to medical facility. Reviewed January 12, 2017 outpatient communication notes:"Please consult pediatric social worker.~ He clearly is a danger to himself and has been for years, but I doubt that he could be committed by a psychiatrist to long-term care against his will.~ " Currently patient tolerating aerosol trach mask with cuffed tracheostomy tube deflated. Complaints of neck pain secondary to tracheostomy tube reports this is improved compared to endotracheal intubation. Objective Laboratory Data - as noted Physical Exam: General -no obvious distress Eyes - EOMI No icterus, ENT -tracheostomy tube present, no losing Lungs - No paradoxical chest wall movement, very coarse with rhonchi throughout , no wheezes or rales Heart - Reg rate and rhythm, Murmur present without rubs, clicks, or gallops appreciated Abdomen -soft nondistended Extremities - multiple missing toes, skin warm with normal peripheral perfusion Neuro - Alert, following complex commands Assessment & Plan PLAN: Resp: Acute on chronic hypoxic and hypercarbic respiratory failure * Empirically treat with 10 days of Levaquin based on prior respiratory cultures , and treatment length secondary to structural lung disease * Bronchodilators in place Severe tracheomalacia Postop day 1 percutaneous tracheostomy * Patient may have cuff deflated and be on aerosol trach mask during the day * Patient to be on 10 cm PEEP via ventilator at night with cuff inflated * Prevention of anxiety provoking situations, this will help prevent tachypnea and worsening of dynamic airway collapse * Dr. stone following: May benefit from pulmonary rehab * Goal O2 Saturations >88% * Will require placement for multiple medical issues and possible/probable neuropsychiatric disease Neuro/PSYCH * Continue home medications: Gabapentin, Sensipar, and Wellbutrin * Added BuSpar 5 mg twice daily for anxiety * Mental health evaluation pending, patient should be able to be interviewed during daylight hours on aerosol trach mask with cuff deflated * Patient has already been able to vocalize * Cognitive decline * Probable neurovascular injury in the sending of long-standing chronic stage V kidney disease * Possible/probable cognitive impairment secondary to recurrent bouts of hypoglycemia induced coma Limited social resources History of noncompliant behavior (reviewed in outpatient record) * Patient's was primary caregiver in the last 2 weeks * Was living at home with and 17-year-old son * Currently patient's father who lives out of state is visiting son secondary to spouse's passing * Father reports patient has not had cognitive insight into disease process for "long time" he does not feel the patient can care for himself at home * Father currently healthcare proxy * Patient would likely benefit from LTAC placement where insulin regimen can be better controlled and respiratory hygiene needs can be met CV: * Tachycardia: * Occurs during episodes of high sympathetic output * Increase metoprolol from 50 twice daily to 75 twice daily * Possible atrial flutter with 2-1 conduction * Septic Shock 2/2 HAP * Hypotension resolved * Troponin elevated, similar to previous admission, possibly due to demand ischemia 2/2 hypotension. * Cardiology consult in place * Last ECHO: EF 60% Grade 1 diastolic dysfunction * Continue home medications including: * Norvasc, Lipitor, Lopressor increased to 75 twice daily * Monitor on telemetry Fluids/Renal: * ESRD on HD * Electrolytes managed per nephrology, within acceptable limits * Minimize fluids; Concentrate where possible ID: * ABX Levaquin every 48 hours stop after May 25 dose * Septic Shock: Hypotension resolved * Discontinued vitamin C, thiamine * Afebrile to date GI/Nutrition: * Cor safe tube placed * Nova source renal , titrated to goal of 30 * [place] body weight 65 kg * Speech therapy, swallowing evaluation today Heme: * DVT prophylaxis: 5000 heparin twice daily: Held this morning * Continue Plavix * Patient previously had been on long-term anticoagulation following a PEA arrest April 18, 2014, and review of outpatient records patient was eventually taken off anticoagulation on July 16, 2015 per hematology oncology office visit notes * In reviewing the patient's prior laboratory values from March 2014 until discontinuation of the warfarin on July 16, 2015 it appears the patient was unable to achieve a consistent therapeutic INR with INR is ranging from 1.2 to 5.5 during the. He was supposed to be goal range 2-3 * With regards to possible atrial flutter and systemic anticoagulation, I believe the patient is not an appropriate candidate given an extensive history of noncompliance with diabetic medication and previous experience while on warfarin therapy and additional history of extensive bleeding while on dialysis per hematology oncology notes. Endocrine: * DM1 with hyperglycemia * Insulin infusion * Does have insulin pump; however, pt had it off when he came to the hospital * Transitioned to subcutaneous insulin * Hypothyroidism * Continue Synthroid 112mcg * Solu-Medrol * Initial indication severe community-acquired pneumonia, later indication, worsening acute on chronic respiratory failure concern for severe sepsis transitioned to dosing consistent with vitamin C, thiamine, steroid protocol * Tolerating aerosol trach mask, no indication of severe ARDS, no organisms resulted on BAL, will continue empiric antibiotics secondary to structural lung disease and severe COPD * Will discontinue steroids today secondary to surgical procedure and implications for wound healing CODE STATUS: DO NOT RESUSCITATE in event of cardiac arrest I have personally spent 120 minutes of critical care time in the direct management of this patient. This is a life/limb threatening event. This includes time spent evaluating patient, direct bedside care, chart review, placing orders, interpretation of diagnostic studies, discussion with consultants, patient, and/or family members regarding treatment decisions, as well as other required patient management activities. This time is exclusive of all separately billable procedures, and teaching time and separate from and in addition to any other critical care service time. Consults & Procedures Consultants: Cardiology: Marv Mental Health: Tian Pulmonology: Suzy Nephrology: [place] Data Medications: Current Inpatient Medications Medications (Trade) Dose Ordered Sig/Etta Route Start Time Stop Time Status Last Admin Dose Admin Atorvastatin Calcium (Lipitor Tab) 40 mg HS PO 05/17/17 21:00 06/16/17 20:59 05/21/17 20:53 40 MG Bupropion HCl (Wellbutrin-Sr Tab) 200 mg QPM PO 05/17/17 21:00 06/16/17 20:59 05/21/17 20:54 200 MG Clopidogrel Bisulfate (plAVix TAB) 75 mg Q2D@0900 PO 05/18/17 09:00 06/17/17 08:59 05/22/17 08:16 75 MG Gabapentin (Neurontin Cap) 100 mg BID PO 05/17/17 21:00 06/16/17 20:59 05/22/17 08:16 100 MG Albuterol/ Ipratropium (Duoneb) 3 ml QID PRN INH 05/17/17 20:15 06/16/17 20:14 05/19/17 04:00 3 ML Levothyroxine Sodium (Synthroid Tab) 112 mcg DAILYBB PO 05/18/17 06:00 06/17/17 05:59 05/22/17 05:43 112 MCG Miscellaneous Information (Order Awaiting Action) 1 ea QS N/A 05/18/17 00:00 06/17/17 00:00 Sevelamer HCl (Renagel Tab) 1,600 mg TIDM PO 05/18/17 07:15 06/17/17 07:14 05/18/17 15:56 1,600 MG Lactobacillus Acidophilus (Floranex Tab) 4 tab TIDM PO 05/18/17 07:15 06/17/17 07:59 05/22/17 08:15 4 TAB Acetaminophen (Tylenol Tab) 650 mg Q4H PRN PO 05/17/17 20:15 06/16/17 20:14 Glucose (Glucose 40% Gel) 15-30 GRAMS 15 GRAMS... UD PRN PO 05/17/17 20:15 06/16/17 20:14 Glucose (Glucose Chew Tab) 4-8 Tablets 4 Tabl... UD PRN PO 05/17/17 20:15 06/16/17 20:14 Dextrose (Dextrose 50% 50ML Syringe) 25-50ML OF 50% DW IV FOR... UD PRN IV 05/17/17 20:15 06/16/17 20:14 05/19/17 01:05 25 ML Glucagon (Glucagon Inj) 1 mg UD PRN SQ 05/17/17 20:15 06/16/17 20:14 Miscellaneous Information (Consult Glycemic Management Pharmacy) 1 ea UD PRN N/A 05/17/17 20:52 06/16/17 20:51 Levofloxacin 500 mg/Prmx 100 ml @ 100 mls/hr Q48H IV 05/19/17 20:00 05/24/17 19:59 05/21/17 20:51 100 MLS/HR Midazolam HCl (Versed Inj) 2 mg Q2H PRN IV 05/19/17 07:15 06/18/17 07:14 05/22/17 04:58 2 MG Fentanyl Citrate (Fentanyl Inj) 50 mcg Q2H PRN IV 05/19/17 07:15 06/02/17 07:14 05/22/17 09:29 50 MCG Ioversol (Optiray 320) 100 ml UD PRN IV 05/19/17 08:15 05/23/17 08:14 Thiamine HCl 200 mg/Sodium Chloride 52 ml @ 210 mls/hr Q12@1000,2200 IV 05/19/17 11:00 05/22/17 22:15 05/22/17 09:32 210 MLS/HR Ascorbic Acid 1500 mg/Sodium Chloride 103 ml @ 206 mls/hr Q6 IV 05/19/17 12:00 05/23/17 06:29 05/22/17 05:44 206 MLS/HR Levalbuterol (Xopenex Hfa Inhaler) 4 puffs Q8R INH 05/19/17 16:00 06/18/17 15:59 05/22/17 07:30 4 PUFFS Heparin Sodium (Porcine) (Heparin Sq 5000 Unit/0.5ml) 5,000 unit BID SC 05/20/17 21:00 06/19/17 20:59 05/22/17 08:16 5,000 UNIT Methylprednisolone Sodium Succinate 40 mg/Syringe 0.64 ml @ 1.5 mls/min Q12H IV 05/21/17 18:00 05/23/17 13:59 05/22/17 05:43 1.5 MLS/MIN Enteral Nutritional Formula (Novasource Renal) 1,000 ml UD PRN PO 05/22/17 09:00 06/21/17 08:59 05/21/17 14:16 1,000 ML Buspirone HCl (Buspar Tab) 5 mg BID PO 05/21/17 21:00 06/20/17 20:59 05/22/17 08:15 5 MG Insulin Aspart (novoLOG ASPART) SLIDING SCALE If CARB RA... Q4H SC 05/21/17 16:00 06/20/17 15:59 05/22/17 08:19 4 UNITS Nitroglycerin (Nitroglycerin 2% Oint) 0.5 inch Q6H EXT 05/21/17 18:00 06/20/17 17:59 05/22/17 06:00 0.5 INCH Insulin Glargine (Lantus Solostar Pen) 25 units DAILY SC 05/23/17 09:00 06/22/17 08:59 Vital Signs: Date Time Temp Pulse Resp B/P (MAP) Pulse Ox O2 Delivery O2 Flow Rate FiO2 05/22/17 08:07 35 05/22/17 08:00 35 05/22/17 08:00 97 Trach Collar 35 05/22/17 08:00 36.9 96 18 121/76 (91) 97 Trach Collar 35 05/22/17 07:45 40 05/22/17 05:01 89 18 122/82 (95) 98 Mechanical Ventilator 05/22/17 04:23 40 05/22/17 04:01 36.6 88 13 122/81 (95) 99 Mechanical Ventilator 05/22/17 04:00 40 05/22/17 04:00 98 Mechanical Ventilator 40 05/22/17 03:01 97 18 121/89 (100) 96 Mechanical Ventilator 05/22/17 02:01 85 15 123/86 (98) 99 Mechanical Ventilator 05/22/17 01:27 40 05/22/17 01:01 83 10 109/72 (84) 99 Mechanical Ventilator 05/22/17 00:01 36.4 82 13 111/76 (88) 99 Mechanical Ventilator 05/21/17 23:59 40 05/21/17 23:59 98 Mechanical Ventilator 40 05/21/17 23:11 85 21 99 Mechanical Ventilator 40 05/21/17 23:01 82 15 101/71 (81) 99 Mechanical Ventilator 05/21/17 22:09 40 05/21/17 22:01 98 17 119/84 (96) 100 Mechanical Ventilator 05/21/17 21:01 81 12 90/69 (76) 100 Mechanical Ventilator 05/21/17 20:01 36.5 91 14 81/65 (70) 95 Mechanical Ventilator 05/21/17 20:00 97 Mechanical Ventilator 40 05/21/17 20:00 40 05/21/17 19:06 40 05/21/17 19:01 102 15 94/65 (75) 89 Mechanical Ventilator 05/21/17 18:00 120 16 114/73 (87) 96 Mechanical Ventilator 40 05/21/17 16:47 40 05/21/17 16:13 152 159/96 05/21/17 16:00 40 05/21/17 16:00 110 18 159/96 (117) 96 Mechanical Ventilator 40 05/21/17 16:00 96 Mechanical Ventilator 40 05/21/17 15:30 40 05/21/17 14:00 120 16 122/75 (91) 97 Mechanical Ventilator 35 05/21/17 12:20 158 198/138 98 Mechanical Ventilator 30 05/21/17 12:15 86 120/74 96 Mechanical Ventilator 30 05/21/17 12:10 87 103/67 96 Mechanical Ventilator 30 05/21/17 12:07 40 05/21/17 12:05 86 105/67 98 Mechanical Ventilator 30 05/21/17 12:00 85 103/69 100 Mechanical Ventilator 100 05/21/17 12:00 35 05/21/17 12:00 100 Mechanical Ventilator 35 05/21/17 12:00 36.7 85 16 105/67 (80) 100 Mechanical Ventilator 35 05/21/17 11:55 84 109/71 100 Mechanical Ventilator 100 05/21/17 11:50 89 114/74 100 Mechanical Ventilator 100 05/21/17 11:45 92 114/74 100 Mechanical Ventilator 100 05/21/17 11:40 90 110/74 100 Mechanical Ventilator 100 05/21/17 11:38 99 136/83 100 Mechanical Ventilator 100 05/21/17 11:35 107 185/108 100 Mechanical Ventilator 100 05/21/17 11:33 121 184/108 92 Mechanical Ventilator 100 05/21/17 11:32 126 184/108 66 Mechanical Ventilator 100 05/21/17 11:30 138 160/104 87 Mechanical Ventilator 100 05/21/17 11:25 100 154/100 100 Mechanical Ventilator 100 05/21/17 11:20 96 117/71 100 Mechanical Ventilator 100 05/21/17 11:15 77 113/74 100 Mechanical Ventilator 100 05/21/17 11:10 80 16 109/72 94 Mechanical Ventilator 100 05/21/17 11:00 80 16 93 Mechanical Ventilator 100 05/21/17 10:00 83 20 147/85 (105) 100 Mechanical Ventilator 35 Laboratory Results: Last 24 Hours Test 05/21/17 12:05 05/21/17 16:20 05/21/17 18:03 05/21/17 20:28 Bedside Glucose 176 mg/dl 289 mg/dl 283 mg/dl White Blood Count 16.45 K/uL Red Blood Count 3.28 M/uL Hemoglobin 11.1 g/dL Hematocrit 34.4 % Mean Corpuscular Volume 104.9 fL Mean Corpuscular Hemoglobin 33.8 pg Mean Corpuscular Hemoglobin Concent 32.3 g/dl Platelet Count 222 K/uL Mean Platelet Volume 10.2 fL Neutrophils (%) (Auto) 93.3 % Lymphocytes (%) (Auto) 2.6 % Monocytes (%) (Auto) 3.6 % Eosinophils (%) (Auto) 0.0 % Basophils (%) (Auto) 0.1 % Neutrophils # (Auto) 15.35 K/uL Lymphocytes # (Auto) 0.43 K/uL Monocytes # (Auto) 0.59 K/uL Eosinophils # (Auto) 0.00 K/uL Basophils # (Auto) 0.01 K/uL RDW Standard Deviation 56.5 fL RDW Coefficient of Variation 14.7 % Immature Granulocyte % (Auto) 0.4 % Immature Granulocyte # (Auto) 0.07 K/uL Sodium Level 134 mmol/L Potassium Level 5.2 mmol/L Chloride Level 99 mmol/L Carbon Dioxide Level 22 mmol/L Anion Gap 13.0 mmol/L Blood Urea Nitrogen 44 mg/dl Creatinine 6.86 mg/dl Est Creatinine Clear Calc Drug Dose 14.4 ml/min Estimated GFR () 9.8 Estimated GFR (Non- 8.5 BUN/Creatinine Ratio 6.4 Random Glucose 317 mg/dl Calcium Level 7.9 mg/dl Troponin I 3.960 ng/ml Beta-Hydroxybutyric Acid 16.89 mg/dL Test 05/22/17 00:36 05/22/17 04:25 05/22/17 05:25 05/22/17 08:13 Bedside Glucose 210 mg/dl 230 mg/dl 181 mg/dl White Blood Count 9.15 K/uL Red Blood Count 2.90 M/uL Hemoglobin 9.7 g/dL Hematocrit 29.8 % Mean Corpuscular Volume 102.8 fL Mean Corpuscular Hemoglobin 33.4 pg Mean Corpuscular Hemoglobin Concent 32.6 g/dl Platelet Count 167 K/uL Mean Platelet Volume 10.2 fL Neutrophils (%) (Auto) 88.8 % Lymphocytes (%) (Auto) 4.8 % Monocytes (%) (Auto) 5.9 % Eosinophils (%) (Auto) 0.0 % Basophils (%) (Auto) 0.1 % Neutrophils # (Auto) 8.12 K/uL Lymphocytes # (Auto) 0.44 K/uL Monocytes # (Auto) 0.54 K/uL Eosinophils # (Auto) 0.00 K/uL Basophils # (Auto) 0.01 K/uL RDW Standard Deviation 55.0 fL RDW Coefficient of Variation 14.7 % Immature Granulocyte % (Auto) 0.4 % Immature Granulocyte # (Auto) 0.04 K/uL Nucleated RBC Absolute Count (auto) 0.02 K/uL Nucleated Red Blood Cells % 0.2 % Activated Partial Thromboplast Time 35.9 SECONDS Partial Thromboplastin Ratio 1.4 Sodium Level 135 mmol/L Potassium Level 4.9 mmol/L Chloride Level 100 mmol/L Carbon Dioxide Level 25 mmol/L Anion Gap 10.0 mmol/L Blood Urea Nitrogen 56 mg/dl Creatinine 7.46 mg/dl Est Creatinine Clear Calc Drug Dose 13.2 ml/min Estimated GFR () 8.9 Estimated GFR (Non- 7.6 BUN/Creatinine Ratio 7.4 Random Glucose 191 mg/dl Calcium Level 8.3 mg/dl Total Bilirubin 0.5 mg/dl Direct Bilirubin 0.2 mg/dl Aspartate Amino Transf (AST/SGOT) 30 U/L Alanine Aminotransferase (ALT/SGPT) 30 U/L Alkaline Phosphatase 139 U/L Total Protein 6.2 gm/dl Albumin 2.3 gm/dl
--- NOTE | 2017-05-22 11:54 | Nephrology Progress Note ---
Nephrology Progress Note Date of Service May 22, 2017. Chief Complaint Follow-up for end-stage renal disease hemodialysis. Anthony Christian was seen and examined in his room this morning with his Dad at bedside. Had tracheostomy yesterday, tolerated the procedure. Overall feeling better , denies any symptoms, no overnight events, no fever or chills. Electrolyte and volume status acceptable. Blood pressure well controlled. Review of Systems A complete review of systems was performed. Pertinent positives are noted above. All other systems are negative. Vital Signs Last 8 Hrs Date Time Temp Pulse Resp B/P (MAP) Pulse Ox O2 Delivery O2 Flow Rate FiO2 05/22/17 08:07 35 05/22/17 08:00 35 05/22/17 08:00 97 Trach Collar 35 05/22/17 08:00 36.9 96 18 121/76 (91) 97 Trach Collar 35 05/22/17 07:45 40 05/22/17 05:01 89 18 122/82 (95) 98 Mechanical Ventilator 05/22/17 04:23 40 05/22/17 04:01 36.6 88 13 122/81 (95) 99 Mechanical Ventilator 05/22/17 04:00 40 05/22/17 04:00 98 Mechanical Ventilator 40 05/22/17 03:01 97 18 121/89 (100) 96 Mechanical Ventilator Last Recorded Weight Weight (Kilograms): 88.700 Physical Exam GENERAL: Middle-aged male, AAA x 3, ill-appearing, not in any distress. NECK: Supple, no JVD. trach collar in place RESPIRATORY: Coarse crackles bilaterally CARDIOVASCULAR: S1, S2 normal, rate rhythm regular. EXTREMITY: No lower extremity edema NEURO: moves all extremities PSYCHIATRY: Normal mood and judgment Family History FH: heart disease Negative for CKD / ESRD Social History Smoking Status: Current every day smoker Drug Use: none Marital Status: Housing Status: lives with family Occupation: disabled . Medically disabled. Former smoker (Quit 2013) Laboratory Results Past 24 Hours 05/21/17 18:03 Red Blood Count 3.28, Mean Corpuscular Volume 104.9, Mean Corpuscular Hemoglobin 33.8, Mean Corpuscular Hemoglobin Concent 32.3, Mean Platelet Volume 10.2, Neutrophils (%) (Auto) 93.3, Lymphocytes (%) (Auto) 2.6, Monocytes (%) ( Auto) 3.6, Eosinophils (%) (Auto) 0.0, Basophils (%) (Auto) 0.1, Neutrophils # ( Auto) 15.35, Lymphocytes # (Auto) 0.43, Monocytes # (Auto) 0.59, Eosinophils # ( Auto) 0.00, Basophils # (Auto) 0.01 05/22/17 05:25 Red Blood Count 2.90, Mean Corpuscular Volume 102.8, Mean Corpuscular Hemoglobin 33.4, Mean Corpuscular Hemoglobin Concent 32.6, Mean Platelet Volume 10.2, Neutrophils (%) (Auto) 88.8, Lymphocytes (%) (Auto) 4.8, Monocytes (%) ( Auto) 5.9, Eosinophils (%) (Auto) 0.0, Basophils (%) (Auto) 0.1, Neutrophils # ( Auto) 8.12, Lymphocytes # (Auto) 0.44, Monocytes # (Auto) 0.54, Eosinophils # ( Auto) 0.00, Basophils # (Auto) 0.01 05/21/17 18:03 05/22/17 05:25 Test 05/21/17 12:05 05/21/17 16:20 05/21/17 18:03 05/21/17 20:28 Bedside Glucose 176 mg/dl (70-99) 289 mg/dl (70-99) 283 mg/dl (70-99) White Blood Count 16.45 K/uL (4.8-10.8) Red Blood Count 3.28 M/uL (4.7-6.1) Hemoglobin 11.1 g/dL (14.0-18.0) Hematocrit 34.4 % (42-52) Mean Corpuscular Volume 104.9 fL (80-100) Mean Corpuscular Hemoglobin 33.8 pg (25-34) Mean Corpuscular Hemoglobin Concent 32.3 g/dl (32-36) Platelet Count 222 K/uL (130-400) Mean Platelet Volume 10.2 fL (7.4-10.4) Neutrophils (%) (Auto) 93.3 % Lymphocytes (%) (Auto) 2.6 % Monocytes (%) (Auto) 3.6 % Eosinophils (%) (Auto) 0.0 % Basophils (%) (Auto) 0.1 % Neutrophils # (Auto) 15.35 K/uL (1.4-6.5) Lymphocytes # (Auto) 0.43 K/uL (1.2-3.4) Monocytes # (Auto) 0.59 K/uL (0.11-0.59) Eosinophils # (Auto) 0.00 K/uL (0-0.5) Basophils # (Auto) 0.01 K/uL (0-0.2) RDW Standard Deviation 56.5 fL (36.4-46.3) RDW Coefficient of Variation 14.7 % (11.5-14.5) Immature Granulocyte % (Auto) 0.4 % Immature Granulocyte # (Auto) 0.07 K/uL (0.00-0.02) Anion Gap 13.0 mmol/L (3-11) Est Creatinine Clear Calc Drug Dose 14.4 ml/min Estimated GFR () 9.8 Estimated GFR (Non- 8.5 BUN/Creatinine Ratio 6.4 (10-20) Calcium Level 7.9 mg/dl (8.5-10.1) Troponin I 3.960 ng/ml (0-0.045) Beta-Hydroxybutyric Acid 16.89 mg/dL (0.2-2.81) Test 05/22/17 00:36 05/22/17 04:25 05/22/17 05:25 05/22/17 08:13 Bedside Glucose 210 mg/dl (70-99) 230 mg/dl (70-99) 181 mg/dl (70-99) White Blood Count 9.15 K/uL (4.8-10.8) Red Blood Count 2.90 M/uL (4.7-6.1) Hemoglobin 9.7 g/dL (14.0-18.0) Hematocrit 29.8 % (42-52) Mean Corpuscular Volume 102.8 fL (80-100) Mean Corpuscular Hemoglobin 33.4 pg (25-34) Mean Corpuscular Hemoglobin Concent 32.6 g/dl (32-36) Platelet Count 167 K/uL (130-400) Mean Platelet Volume 10.2 fL (7.4-10.4) Neutrophils (%) (Auto) 88.8 % Lymphocytes (%) (Auto) 4.8 % Monocytes (%) (Auto) 5.9 % Eosinophils (%) (Auto) 0.0 % Basophils (%) (Auto) 0.1 % Neutrophils # (Auto) 8.12 K/uL (1.4-6.5) Lymphocytes # (Auto) 0.44 K/uL (1.2-3.4) Monocytes # (Auto) 0.54 K/uL (0.11-0.59) Eosinophils # (Auto) 0.00 K/uL (0-0.5) Basophils # (Auto) 0.01 K/uL (0-0.2) RDW Standard Deviation 55.0 fL (36.4-46.3) RDW Coefficient of Variation 14.7 % (11.5-14.5) Immature Granulocyte % (Auto) 0.4 % Immature Granulocyte # (Auto) 0.04 K/uL (0.00-0.02) Nucleated RBC Absolute Count (auto) 0.02 K/uL (0-0) Nucleated Red Blood Cells % 0.2 % Activated Partial Thromboplast Time 35.9 SECONDS (21.0-31.0) Partial Thromboplastin Ratio 1.4 Anion Gap 10.0 mmol/L (3-11) Est Creatinine Clear Calc Drug Dose 13.2 ml/min Estimated GFR () 8.9 Estimated GFR (Non- 7.6 BUN/Creatinine Ratio 7.4 (10-20) Calcium Level 8.3 mg/dl (8.5-10.1) Total Bilirubin 0.5 mg/dl (0.2-1) Direct Bilirubin 0.2 mg/dl (0-0.2) Aspartate Amino Transf (AST/SGOT) 30 U/L (15-37) Alanine Aminotransferase (ALT/SGPT) 30 U/L (12-78) Alkaline Phosphatase 139 U/L (45-117) Total Protein 6.2 gm/dl (6.4-8.2) Albumin 2.3 gm/dl (3.4-5.0) Allergies Coded Allergies: Codeine (Verified Allergy, Intermediate, NAUSEA AND VOMITING, 05/07/17) QUESTIONABLE ALLERGY, STILL QUESTIONABLE BUT MD Villafuerte/David SHONDA WITH COD 02/20/17 Tigecycline (Verified Allergy, Mild, ?RASH, 05/07/17) Clindamycin (Verified Allergy, Unknown, Unknown, 05/07/17) Penicillins (Verified Allergy, Unknown, PT HAS HAD MEFOXIN W/OUT A PROBLEM , 05/07/17) HAD MEFOXIN W/O PROBLEM Ciprofloxacin (Verified Adverse Reaction, Intermediate, nausea,vomiting, generalized weakness, 05/07/17) Morphine (Verified Adverse Reaction, Intermediate, TREMBLING,NAUSEA AND VOMITING, 05/07/17) Opioid Analgesics (Verified Adverse Reaction, Intermediate, "ALL RX PAIN MEDS CAUSE SEVERE NAUSEA", 05/07/17) Levofloxacin (Verified Adverse Reaction, Mild, Cipro/Levaquin (IV & po) = N & V, 05/07/17) Oxycodone (Verified Adverse Reaction, Unknown, N/V/D, 05/07/17) SPOKE WITH PATIENT ON 07/29/15, DOES NOT REMEMBER ANY DIFFICULTY BREATHING JUST HIT HIM HARD. Medications Current Inpatient Medications Medications (Trade) Dose Ordered Sig/Etta Route Start Time Stop Time Status Last Admin Dose Admin Atorvastatin Calcium (Lipitor Tab) 40 mg HS PO 05/17/17 21:00 06/16/17 20:59 05/21/17 20:53 40 MG Bupropion HCl (Wellbutrin-Sr Tab) 200 mg QPM PO 05/17/17 21:00 06/16/17 20:59 05/21/17 20:54 200 MG Clopidogrel Bisulfate (plAVix TAB) 75 mg Q2D@0900 PO 05/18/17 09:00 06/17/17 08:59 05/22/17 08:16 75 MG Gabapentin (Neurontin Cap) 100 mg BID PO 05/17/17 21:00 06/16/17 20:59 05/22/17 08:16 100 MG Albuterol/ Ipratropium (Duoneb) 3 ml QID PRN INH 05/17/17 20:15 06/16/17 20:14 05/19/17 04:00 3 ML Levothyroxine Sodium (Synthroid Tab) 112 mcg DAILYBB PO 05/18/17 06:00 06/17/17 05:59 05/22/17 05:43 112 MCG Miscellaneous Information (Order Awaiting Action) 1 ea QS N/A 05/18/17 00:00 06/17/17 00:00 Sevelamer HCl (Renagel Tab) 1,600 mg TIDM PO 05/18/17 07:15 06/17/17 07:14 05/18/17 15:56 1,600 MG Lactobacillus Acidophilus (Floranex Tab) 4 tab TIDM PO 05/18/17 07:15 06/17/17 07:59 05/22/17 08:15 4 TAB Acetaminophen (Tylenol Tab) 650 mg Q4H PRN PO 05/17/17 20:15 06/16/17 20:14 Glucose (Glucose 40% Gel) 15-30 GRAMS 15 GRAMS... UD PRN PO 05/17/17 20:15 06/16/17 20:14 Glucose (Glucose Chew Tab) 4-8 Tablets 4 Tabl... UD PRN PO 05/17/17 20:15 06/16/17 20:14 Dextrose (Dextrose 50% 50ML Syringe) 25-50ML OF 50% DW IV FOR... UD PRN IV 05/17/17 20:15 06/16/17 20:14 05/19/17 01:05 25 ML Glucagon (Glucagon Inj) 1 mg UD PRN SQ 05/17/17 20:15 06/16/17 20:14 Miscellaneous Information (Consult Glycemic Management Pharmacy) 1 ea UD PRN N/A 05/17/17 20:52 06/16/17 20:51 Levofloxacin 500 mg/Prmx 100 ml @ 100 mls/hr Q48H IV 05/19/17 20:00 05/24/17 19:59 05/21/17 20:51 100 MLS/HR Midazolam HCl (Versed Inj) 2 mg Q2H PRN IV 05/19/17 07:15 06/18/17 07:14 05/22/17 04:58 2 MG Fentanyl Citrate (Fentanyl Inj) 50 mcg Q2H PRN IV 05/19/17 07:15 06/02/17 07:14 05/22/17 09:29 50 MCG Ioversol (Optiray 320) 100 ml UD PRN IV 05/19/17 08:15 05/23/17 08:14 Thiamine HCl 200 mg/Sodium Chloride 52 ml @ 210 mls/hr Q12@1000,2200 IV 05/19/17 11:00 05/22/17 22:15 05/22/17 09:32 210 MLS/HR Ascorbic Acid 1500 mg/Sodium Chloride 103 ml @ 206 mls/hr Q6 IV 05/19/17 12:00 05/23/17 06:29 05/22/17 05:44 206 MLS/HR Levalbuterol (Xopenex Hfa Inhaler) 4 puffs Q8R INH 05/19/17 16:00 06/18/17 15:59 05/22/17 07:30 4 PUFFS Heparin Sodium (Porcine) (Heparin Sq 5000 Unit/0.5ml) 5,000 unit BID SC 05/20/17 21:00 06/19/17 20:59 05/22/17 08:16 5,000 UNIT Methylprednisolone Sodium Succinate 40 mg/Syringe 0.64 ml @ 1.5 mls/min Q12H IV 05/21/17 18:00 05/23/17 13:59 05/22/17 05:43 1.5 MLS/MIN Enteral Nutritional Formula (Novasource Renal) 1,000 ml UD PRN PO 05/22/17 09:00 06/21/17 08:59 05/21/17 14:16 1,000 ML Buspirone HCl (Buspar Tab) 5 mg BID PO 05/21/17 21:00 06/20/17 20:59 05/22/17 08:15 5 MG Insulin Aspart (novoLOG ASPART) SLIDING SCALE If CARB RA... Q4H SC 05/21/17 16:00 06/20/17 15:59 05/22/17 08:19 4 UNITS Nitroglycerin (Nitroglycerin 2% Oint) 0.5 inch Q6H EXT 05/21/17 18:00 06/20/17 17:59 05/22/17 06:00 0.5 INCH Insulin Glargine (Lantus Solostar Pen) 25 units DAILY SC 05/23/17 09:00 06/22/17 08:59 Impression (1) End-stage renal disease on hemodialysis (2) Bronchitis (3) Tracheomalacia (4) Diabetes mellitus (5) Anemia Patient admitted to the hospital w/ recurrent bronchitis. He has a history of severe tracheal malacia with chronic bronchiectasis. He tested negative for Influenza. He is now on broad spectrum antibiotics. Blood cultures and Mycoplasma testing are pending. CXR is negative for infiltrates. PMH - ESRD due to diabetic nephropathy on IHD since 12/25 (HD TTS at [facility] - 4 hrs 2K 2Ca F180NR Qb 450 cc/min HCO3 34 EDW 83 kg), IDDM, HTN , PVD s/p R femoral artery bypass, anemia, hypothyroidism, hypercholesterolemia , bipolar disorder, COPD w/ severe tracheomalacia and chronic bronchiectasis ( quit smoking ~ 2013). Recommendations -- HD had hemodialysis On Tuesday, currently electrolyte and volume status stable. No need for dialysis today, will monitor over the weekend. -- limit IV fluid -- Imipenem, Levaquin and Caspofungin doses are appropriate for ESRD -- had tracheostomy yesterday --will assess need for dialysis tomorrow Will follow.
--- NOTE | 2017-05-22 14:59 | Pharmacy Progress Note ---
Pharmacy Glycemic Short Note 2 Date of Service May 22, 2017. OUTPATIENT ANTIDIABETIC REGIMEN: * NovoLog insulin pump * Basal = 14.4 units/day * CF = 20mg/dl/unit * CR = 1 unit for every 12g CHO consumes * Follows with Dr Sumner at [facility] Endocrinology * A1c = 6.6% on 05/18/17 ASSESSMENT: * 51yo Type 1 diabetic male well known to pharmacy from previous admissions/ glycemic consults. Most recently during his 04/30/17 admission. * Pt was initiated on IV insulin infusion for both admissions. Successful transition last admission with Lantus 25 units Q24hrs while on Solumedrol 20mg IV Q8hrs and then tapered to prednisone 40mg PO daily. * Pt was transitioned from IV to SQ basal bolus insulin 05/21/17. Unfortunately, pt with rebound hyperglycemia despite aggressive SQ insulin dosing. * CF tightened by weight shifter pharmacist & next basal insulin dose given ~ 4 hrs early * Sustained moderate hyperglycemia now resolved * IV steroids d/c today --> should yield an improvement in BSGs and decrease in insulin dosing warranted. * Pt is currently receiving 25 units of basal insulin for steroid induced hyperglycemia. Outpatient basal insulin dosing is ~ 15 units/day. Will start to taper basal insulin back towards outpatient dosing based on BSG trends * Pt continues on continuous tube feedings with Novosource Renal @ 30ml/hr. Will continue NovoLog Q4hr with CHO count, may need to loosen CR after solumedrol wears off PLAN FOR INPATIENT GLYCEMIC CONTROL: * Basal insulin * Decrease basal insulin since steroids d/c (current dosing is ~2x outpatient dosing) * Lantus 15-25 units SQ daily in AM based on BSG 05/23/17 * BSG below 140mg/dl --> 15 units (outpatient dosing) * BSG 140-180mg/dl --> 20 units * BSG above 180mg/dl --> 25 units * Bolus insulin {stressed outpatient CR dosing for steroid induced hyperglycemia } * NovoLog per scale Q4hrs * Goal Range: Low 120 mg/dL - High 150 mg/dL * Correction Factor: 20 mg/dL/unit * Nutritional / Prandial insulin per carb ratio of 1 unit per 9 grams CHO consumed * Carb ratio is to cover Novosource renal @ 30ml/hr which provides 21g CHO over 4 hrs.
--- NOTE | 2017-05-22 17:17 | PULMONARY PROGRESS NOTE ---
DATE: 05/22/2017 TIME: 4:55 p.m. SUBJECTIVE: The events have been reviewed. Case was discussed yesterday with Dr. Gutierrez. I have no specific suggestions at present. Care has been managed by the sider mechanic. I think at this point in time the patient would not be a candidate for outpatient pulmonary rehabilitation. I agree with Dr. Gutierrez that he would be a better candidate for an LTAC or some inpatient therapy someplace. Pulmonary will sign off at this point. Dr. Ojeda is away who is his primary pc technician. TOMMY
[2017-05-22] MEDS: ATORVASTATIN 40 MG TAB PO SCH (20:11)
[2017-05-22] MEDS: METOPROLOL TARTRATE 25 MG TAB PO SCH (20:12)
[2017-05-22] MEDS: BuPROPion SR 100 MG TABCR PO SCH (20:13)
--- NOTE | 2017-05-22 22:07 | Progress Note ---
Subjective Date of Service: May 22, 2017. Subjective Pt evaluation today including: conversation w/ patient, physical exam, chart review, lab review, review of inpatient medication list Pain: mild neck discomfort PO Intake: tolerating diet events of last evening noted he broke from a. flutter to NSR and has remained in such since he was weaned from the vent today; now on trach collar speech provided him with passy lizz valve and doing well w/ such during my visit today he was awake, alert, answering questions reported he uses tramadol sparingly at home for chronic pain Problem List Medical Problems: (1) Bronchitis Status: Acute (2) Change in mental status Status: Acute (3) Contusion of head Status: Acute (4) End stage renal disease Status: Acute (5) ESRD (end stage renal disease) on dialysis Status: Acute (6) Fall Status: Acute (7) HCAP (healthcare-associated pneumonia) Status: Acute (8) Heart murmur Status: Acute (9) Hypoglycemia Status: Acute (10) Hypoglycemia Status: Acute (11) Hypoglycemia Status: Acute (12) Hypoglycemia Status: Acute (13) Hypoglycemia Status: Acute (14) Hypoglycemia Status: Acute (15) Hypoglycemia Status: Acute (16) Hypoglycemia Status: Acute (17) Hypoglycemia Status: Acute (18) Hypoglycemia Status: Acute (19) Hypoglycemia Status: Acute (20) Hypoglycemia Status: Acute (21) Hypoglycemia Status: Acute (22) Hypoglycemia Status: Acute (23) Hypokalemia Status: Acute (24) Hypotension Status: Acute (25) Hypoxemia Status: Acute (26) Hypoxia Status: Acute (27) NSTEMI (non-ST elevated myocardial infarction) Status: Acute (28) Right lower lobe pneumonia Status: Acute (29) Right middle lobe pneumonia Status: Acute (30) Sepsis Status: Acute (31) Sepsis Status: Acute (32) SOB (shortness of breath) Status: Acute (33) SOB (shortness of breath) Status: Acute (34) Syncope Status: Acute (35) Traumatic hematoma of forehead Status: Acute Surgical Problems: (1) Hypoglycemia Status: Acute Review of Systems Constitutional: No fever Respiratory: No dyspnea at rest Cardiac: No chest pain Abdomen: No pain Objective Vital Signs Date Time Temp Pulse Resp B/P (MAP) Pulse Ox O2 Delivery O2 Flow Rate FiO2 05/22/17 21:06 35 3/4/18 20:00 97 Trach Collar 10.0 35 3//18 18:00 102 18 153/93 (113) 98 Trach Collar 35 3/18 16:00 35 3//18 16:00 98 Trach Collar 35 3//18 16:00 36.8 100 16 109/80 (90) 98 Trach Collar 35 3//18 15:23 92 20 97 Trach Collar 10.0 35 3/18 14:00 94 18 119/85 (96) 91 Trach Collar 35 18 12:00 36.7 97 20 107/76 (86) 98 Trach Collar 35 18 12:00 35 3//18 12:00 98 Trach Collar 35 18 10:00 92 18 111/81 (91) 95 Trach Collar 35 18 08:07 35 3/18 08:00 35 3//18 08:00 97 Trach Collar 35 18 08:00 36.9 96 18 121/76 (91) 97 Trach Collar 35 18 07:45 40 18 05:01 89 18 122/82 (95) 98 Mechanical Ventilator 05/22/17 04:23 40 18 04:01 36.6 88 13 122/81 (95) 99 Mechanical Ventilator 05/22/17 04:00 40 05/22/17 04:00 98 Mechanical Ventilator 40 18 03:01 97 18 121/89 (100) 96 Mechanical Ventilator 05/22/17 02:01 85 15 123/86 (98) 99 Mechanical Ventilator 05/22/17 01:27 40 18 01:01 83 10 109/72 (84) 99 Mechanical Ventilator 18 00:01 36.4 82 13 111/76 (88) 99 Mechanical Ventilator 05/21/17 23:59 40 18 23:59 98 Mechanical Ventilator 40 05/21/17 23:11 85 21 99 Mechanical Ventilator 40 05/21/17 23:01 82 15 101/71 (81) 99 Mechanical Ventilator 05/21/17 22:09 40 18 22:01 98 17 119/84 (96) 100 Mechanical Ventilator Physical Exam General Appearance: no apparent distress, + pertinent finding (looks much better than yesterday) ENT: pharynx normal (MMM) Neck: no JVD, + pertinent finding (triple IJ CVC clean; trach site clean) Respiratory/Chest: no respiratory distress, no accessory muscle use, + pertinent finding (course BS b/l but good airation; minimal wheeze b/l) Cardiovascular: regular rate, rhythm, no gallop Abdomen: normal bowel sounds, non tender, no organomegaly, + distended Extremities: no pedal edema Neurologic/Psychiatric: alert Laboratory Results Last 24 Hours Test 05/22/17 00:36 05/22/17 04:25 05/22/17 05:25 05/22/17 08:13 Bedside Glucose 210 mg/dl 230 mg/dl 181 mg/dl White Blood Count 9.15 K/uL Red Blood Count 2.90 M/uL Hemoglobin 9.7 g/dL Hematocrit 29.8 % Mean Corpuscular Volume 102.8 fL Mean Corpuscular Hemoglobin 33.4 pg Mean Corpuscular Hemoglobin Concent 32.6 g/dl Platelet Count 167 K/uL Mean Platelet Volume 10.2 fL Neutrophils (%) (Auto) 88.8 % Lymphocytes (%) (Auto) 4.8 % Monocytes (%) (Auto) 5.9 % Eosinophils (%) (Auto) 0.0 % Basophils (%) (Auto) 0.1 % Neutrophils # (Auto) 8.12 K/uL Lymphocytes # (Auto) 0.44 K/uL Monocytes # (Auto) 0.54 K/uL Eosinophils # (Auto) 0.00 K/uL Basophils # (Auto) 0.01 K/uL RDW Standard Deviation 55.0 fL RDW Coefficient of Variation 14.7 % Immature Granulocyte % (Auto) 0.4 % Immature Granulocyte # (Auto) 0.04 K/uL Nucleated RBC Absolute Count (auto) 0.02 K/uL Nucleated Red Blood Cells % 0.2 % Activated Partial Thromboplast Time 35.9 SECONDS Partial Thromboplastin Ratio 1.4 Sodium Level 135 mmol/L Potassium Level 4.9 mmol/L Chloride Level 100 mmol/L Carbon Dioxide Level 25 mmol/L Anion Gap 10.0 mmol/L Blood Urea Nitrogen 56 mg/dl Creatinine 7.46 mg/dl Est Creatinine Clear Calc Drug Dose 13.2 ml/min Estimated GFR () 8.9 Estimated GFR (Non- 7.6 BUN/Creatinine Ratio 7.4 Random Glucose 191 mg/dl Calcium Level 8.3 mg/dl Total Bilirubin 0.5 mg/dl Direct Bilirubin 0.2 mg/dl Aspartate Amino Transf (AST/SGOT) 30 U/L Alanine Aminotransferase (ALT/SGPT) 30 U/L Alkaline Phosphatase 139 U/L Total Protein 6.2 gm/dl Albumin 2.3 gm/dl Test 05/22/17 11:17 05/22/17 16:13 05/22/17 20:06 Bedside Glucose 159 mg/dl 122 mg/dl 107 mg/dl Assessment and Plan 51yo male with numerous medical problems - T1DM on pump, tracheomalacia/ bronchiectasis/COPD, PAD, chronic diastolic CHF - recnet hospital admission for HCAP. Readmitted for acute/chronic hypoxic/hypercarbic respiratory failure and septic shock 2nd to LLL pneumonia. After weaning of pressors he was transferred to the tele floor on 05/18/17. Unfortunately he had worsening respiratory status shortly after transfer to the floor, requiring intubation and transfer back to the ICU. 1. acute/chronic hypercarbic/hypoxic respiratory failure - 2nd to LLL pneumonia , presumably gram negative etiology, as well as COPD exacerbation/ bronchiectasis exacerbation - improved. POD #1 s/p tracheostomy placement and now off the vent. Trach placement due to severe tracheomalacia. He was receiving broad-spectrum IV abx including levaquin, Imipenem, and Caspofungin - latter 2 d/c, now only on levaquin - defer management to critical care. All cultures to date are w/o a specific pathogen. Steroids stopped today by critical care attending. 2. T1DM - cont basal/bolus insulin regimen; reasonable control at this time. Should improve even more now that steroids have been d/c. 3. NSTEMI - unclear if type 1 or type 2 LA. Given his PAD, ESRD, etc he likely does have underlying CAD. He continues with inferior wall T wave inversions. Echo with grossly normal LV function. Completed 48 hours of heparin infusion. Remains on plavix, statin. Beta piedad has been resumed. Last evening troponin was rechecked and was 3, considerably lower than previously. d/c nitropaste. 4. ESRD on HD //Tue - appreciate nephrology assistance with HD needs. 5. chronic diastolic CHF - cxr and clinically he is w/o decompensation. 6. HTN - improved today. 7. PAD - noted - plavix, statin, BB. 8. hypothyroidism - compensated; normal TSH; cont synthroid. 9. DVT proph - heparin BID. 10. diabetic peripheral neuropathy - gabapentin low-dose. 11. depression - resume wellbutrin. 12. tachycardia 05/21/17 - EKG - suspect 2:1 a. flutter. Resolved. Cont tele monitoring. 13. recent septic shock - resolved. 14. protein calorie malnutrition - likely at least moderate - diet resumed by ICU today. will cont to follow Continued [facility] stay due to: inadequate po fluid intake, ambulation difficulties , multiple IV medications needed, other (s/p trach placement) Discharge planning: other (L-TACH)
[2017-05-23] VITALS (16 sets, daily range): BP systolic 123–161; BP diastolic 82–109; PULSE 72–96; TEMP 36.5; O2SAT 90–100
[2017-05-23] MEDS: MIDAZOLAM HCL 1 MG/ML 2ML VIAL IV PRN (00:15)
[2017-05-23] MEDS: GLUCOSE 40% GEL 15 GM TUBE PO PRN ×2 (00:51→16:11)
[2017-05-23] MEDS: DEXTROSE 50% 50 ML SYR IV PRN ×3 (01:31→23:14)
[2017-05-23] MEDS: INSULIN ASPART 100 UNITS/ML 3 ML PEN SC SCH ×7 (04:00→23:41)
[2017-05-23] MEDS: LEVOTHYROXINE 112 MCG TAB PO SCH (05:45)
[2017-05-23 06:00] LABS: PTT PATIENT 32.8 SECONDS (21.0-31.0)
[2017-05-23 06:37] LABS: CALCIUM 8.5 mg/dl (8.5-10.1); CREATININE 8.94 mg/dl (0.60-1.40); POTASSIUM 4.8 mmol/L (3.5-5.1)
[2017-05-23] MEDS: LEValbuterol HFA 15GM INHALER INH SCH ×3 (07:34→23:18)
[2017-05-23] MEDS ORDERED: EPOETIN ALFA 10,000 UNITS/ML VIAL IV SCH (08:30)
[2017-05-23] MEDS ORDERED: INSULIN GLARGINE SOLOSTAR 100 UNITS/ML 3 ML PEN SC SCH ×2 (09:00)
[2017-05-23] MEDS: SEVELAMER HYDROCH 800 MG TAB PO SCH ×3 (09:13→16:32)
[2017-05-23] MEDS: GABAPENTIN 100 MG CAP PO SCH ×2 (09:13→19:55)
[2017-05-23] MEDS: LACTOBACILLUS ACIDOPHILUS (FLORANEX) TAB PO SCH ×3 (09:13→16:32)
[2017-05-23] MEDS: HEPARIN SOD 5000 UNIT/0.5 ML CARP SC SCH ×2 (09:14→20:08)
[2017-05-23] MEDS: METOPROLOL TARTRATE 25 MG TAB PO SCH ×2 (09:14→19:53)
[2017-05-23] MEDS ORDERED: HYDROmorphone INJ 0.5 MG/0.5 ML SYR IV PRN (09:15)
[2017-05-23] MEDS ORDERED: LORAZEPAM INJ 1 MG in SYRINGE 0.5 ML IV PRN (09:15)
[2017-05-23] MEDS: BREO ELLIPTA: ORDER AWAITING ACTION SCH ×4 (09:25→23:41)
[2017-05-23] MEDS ORDERED: BISACODYL 10 MG SUPP PR PRN (09:45)
--- NOTE | 2017-05-23 09:50 | Progress Note ---
Subjective Date of Service: May 23, 2017. Subjective Pt evaluation today including: conversation w/ patient, conversation w/ family (father at bedside), physical exam, chart review, lab review, conversation w/ industrial methods consultant (social work), review of inpatient medication list Pain: neck PO Intake: tolerating diet tele stable overnight; no dysrhythmia only complaint is neck pain using passy lizz valve for phonation w/o difficulty NG tube has been d/c tolerated vent overnight, now on trach collar he is aware of L-TACH referral and wants to transfer there Problem List Medical Problems: (1) Bronchitis Status: Acute (2) Change in mental status Status: Acute (3) Contusion of head Status: Acute (4) End stage renal disease Status: Acute (5) ESRD (end stage renal disease) on dialysis Status: Acute (6) Fall Status: Acute (7) HCAP (healthcare-associated pneumonia) Status: Acute (8) Heart murmur Status: Acute (9) Hypoglycemia Status: Acute (10) Hypoglycemia Status: Acute (11) Hypoglycemia Status: Acute (12) Hypoglycemia Status: Acute (13) Hypoglycemia Status: Acute (14) Hypoglycemia Status: Acute (15) Hypoglycemia Status: Acute (16) Hypoglycemia Status: Acute (17) Hypoglycemia Status: Acute (18) Hypoglycemia Status: Acute (19) Hypoglycemia Status: Acute (20) Hypoglycemia Status: Acute (21) Hypoglycemia Status: Acute (22) Hypoglycemia Status: Acute (23) Hypokalemia Status: Acute (24) Hypotension Status: Acute (25) Hypoxemia Status: Acute (26) Hypoxia Status: Acute (27) NSTEMI (non-ST elevated myocardial infarction) Status: Acute (28) Right lower lobe pneumonia Status: Acute (29) Right middle lobe pneumonia Status: Acute (30) Sepsis Status: Acute (31) Sepsis Status: Acute (32) SOB (shortness of breath) Status: Acute (33) SOB (shortness of breath) Status: Acute (34) Syncope Status: Acute (35) Traumatic hematoma of forehead Status: Acute Surgical Problems: (1) Hypoglycemia Status: Acute Review of Systems Respiratory: No shortness of breath Cardiac: No chest pain Abdomen: + constipation, No pain Objective Vital Signs Date Time Temp Pulse Resp B/P (MAP) Pulse Ox O2 Delivery O2 Flow Rate FiO2 05/23/17 06:02 75 7 123/82 (96) 97 CPAP 35 3/5/18 05:27 35 3/5/18 05:01 84 10 158/102 (120) 100 CPAP 35 3/5/18 04:01 78 10 137/96 (110) 100 CPAP 35 3/5/18 04:00 99 CPAP 35 3/5/18 04:00 35 3/5/18 03:17 35 3/5/18 03:02 72 8 134/93 (107) 100 CPAP 35 3/5/18 02:01 84 2 149/96 (113) 100 CPAP 35 3/5/18 01:02 85 11 132/106 (115) 99 CPAP 35 3/5/18 00:25 35 3/5/18 00:02 91 12 156/107 (123) 96 CPAP 35 3/5/18 00:00 35 3/4/18 23:59 99 CPAP 35 3/4/18 23:23 77 12 97 Mechanical Ventilator 35 3//18 23:01 76 14 116/80 (92) CPAP 35 3/4/18 22:02 82 9 129/94 (106) 98 CPAP 35 3/4/18 21:06 35 3/4/18 21:02 96 144/97 (113) 98 Trach Collar 35 3/4/18 20:01 36.8 102 152/86 (108) 95 Trach Collar 35 3/4/18 20:00 97 Trach Collar 10.0 35 3/4/18 18:00 102 18 153/93 (113) 98 Trach Collar 35 3/4/18 16:00 35 3/4/18 16:00 98 Trach Collar 35 3/4/18 16:00 36.8 100 16 109/80 (90) 98 Trach Collar 35 3/4/18 15:23 92 20 97 Trach Collar 10.0 35 3/4/18 14:00 94 18 119/85 (96) 91 Trach Collar 35 3/4/18 12:00 36.7 97 20 107/76 (86) 98 Trach Collar 35 3/4/18 12:00 35 3/4/18 12:00 98 Trach Collar 35 3/4/18 10:00 92 18 111/81 (91) 95 Trach Collar 35 Physical Exam General Appearance: no apparent distress, + pertinent finding (looks good, speech fluent and clear, a/o x 3, NAD) ENT: pharynx normal (MMM, no thrush) Neck: no JVD, + pertinent finding (trach in place, clean/no hematoma; right IJ CVC clean) Respiratory/Chest: no respiratory distress, no accessory muscle use, + rales ( scant - bases), + wheezing (minimal end-exp) Cardiovascular: regular rate, rhythm, no gallop, + systolic murmur (2/6 holosystolic RUSB/LSB) Abdomen: normal bowel sounds, non tender, no organomegaly, + distended Extremities: no pedal edema, + pertinent finding (TMA left foot, great toe on right absent; no edema; pulses 1+ b/l at best) Neurologic/Psychiatric: alert, oriented x 3 Laboratory Results Last 24 Hours Test 05/22/17 11:17 05/22/17 16:13 05/22/17 20:06 05/23/17 00:19 Bedside Glucose 159 mg/dl 122 mg/dl 107 mg/dl 60 mg/dl Test 05/23/17 00:43 05/23/17 01:50 05/23/17 04:00 05/23/17 05:31 Bedside Glucose 58 mg/dl 109 mg/dl 117 mg/dl Activated Partial Thromboplast Time 32.8 SECONDS Partial Thromboplastin Ratio 1.3 Sodium Level 137 mmol/L Potassium Level 4.8 mmol/L Chloride Level 101 mmol/L Carbon Dioxide Level 23 mmol/L Anion Gap 13.0 mmol/L Blood Urea Nitrogen 69 mg/dl Creatinine 8.94 mg/dl Est Creatinine Clear Calc Drug Dose 11.0 ml/min Estimated GFR () 7.1 Estimated GFR (Non- 6.1 BUN/Creatinine Ratio 7.7 Random Glucose 83 mg/dl Calcium Level 8.5 mg/dl Assessment and Plan 51yo male with numerous medical problems - T1DM on pump, tracheomalacia/ bronchiectasis/COPD, PAD, chronic diastolic CHF - recnet hospital admission for HCAP. Readmitted for acute/chronic hypoxic/hypercarbic respiratory failure and septic shock 2nd to LLL pneumonia. After weaning of pressors he was transferred to the tele floor on 05/18/17. Unfortunately he had worsening respiratory status shortly after transfer to the floor, requiring intubation and transfer back to the ICU. 1. acute/chronic hypercarbic/hypoxic respiratory failure - 2nd to LLL pneumonia , presumably gram negative etiology, as well as COPD exacerbation/ bronchiectasis exacerbation - improved/resolving. POD #2 s/p tracheostomy placement and now off the vent during the day but he is being vented at night. Trach placement due to severe tracheomalacia. He was receiving broad-spectrum IV abx including levaquin, Imipenem, and Caspofungin - latter 2 d/c, now only on levaquin; finish course of levaquin. Day #09/27. All cultures to date are w/o a specific pathogen. Steroids have been d/c. 2. T1DM - cont basal/bolus insulin regimen; reasonable control at this time but did have hypoglycemia overnight. Pharmacy adjusting insulins. 3. NSTEMI - unclear if type 1 or type 2 CA. Given his PAD, ESRD, etc he likely does have underlying CAD. He continues with inferior wall T wave inversions. Echo with grossly normal LV function. Completed 48 hours of heparin infusion. Remains on plavix, statin. Beta piedad has been resumed. Consider adding 81mg aspirin daily. 4. ESRD on HD //Tue - appreciate nephrology assistance with HD needs. He may get HD today. 5. chronic diastolic CHF - cxr and clinically he is w/o decompensation. 6. HTN - acceptable control. 7. PAD - noted - plavix, statin, BB. 8. hypothyroidism - compensated; normal TSH; cont synthroid. 9. DVT proph - heparin BID. 10. diabetic peripheral neuropathy - gabapentin low-dose. 11. depression - resumed wellbutrin. 12. tachycardia 3/06/05 - EKG - suspected 2:1 a. flutter. Resolved. Cont tele monitoring. 13. recent septic shock - resolved. 14. protein calorie malnutrition - likely at least moderate - diet resumed 15. constipation - senna, miralax + dulcolax suppos prn transfer to tele L-tach referral in process father updated Continued [facility] stay due to: ambulation difficulties, multiple IV medications needed, other (s/p trach placement) Discharge planning: other (L-TACH)
--- NOTE | 2017-05-23 10:08 | Nephrology Progress Note ---
Nephrology Progress Note Date of Service May 23, 2017. Chief Complaint Follow-up for end-stage renal disease hemodialysis. Anthony Christian was seen and examined in his room in ICU, with his dad at bedside. Could not sleep well last night but otherwise doing well, off of ventilator now on trach collar. Denies shortness of breath or chest pain. Blood pressure stable. Electrolyte and volume status acceptable. Review of Systems A complete review of systems was performed. Pertinent positives are noted above. All other systems are negative. Vital Signs Last 8 Hrs Date Time Temp Pulse Resp B/P (MAP) Pulse Ox O2 Delivery O2 Flow Rate FiO2 05/23/17 06:02 75 7 123/82 (96) 97 CPAP 35 05/23/17 05:27 35 05/23/17 05:01 84 10 158/102 (120) 100 CPAP 35 05/23/17 04:01 78 10 137/96 (110) 100 CPAP 35 05/23/17 04:00 99 CPAP 35 05/23/17 04:00 35 05/23/17 03:17 35 05/23/17 03:02 72 8 134/93 (107) 100 CPAP 35 05/23/17 02:01 84 2 149/96 (113) 100 CPAP 35 05/23/17 01:02 85 11 132/106 (115) 99 CPAP 35 Last Recorded Weight Weight (Kilograms): 89.800 Physical Exam GENERAL: Middle-aged male, AAA x 3,not in any distress. NECK: Supple, no JVD. trach collar in place RESPIRATORY: Coarse crackles bilaterally CARDIOVASCULAR: S1, S2 normal, rate rhythm regular. EXTREMITY: No lower extremity edema NEURO: moves all extremities PSYCHIATRY: Normal mood and judgment Family History FH: heart disease Negative for CKD / ESRD Social History Smoking Status: Current every day smoker Drug Use: none Marital Status: Housing Status: lives with family Occupation: disabled . Medically disabled. Former smoker (Quit 2013) Laboratory Results Past 24 Hours 05/23/17 05:31 Test 05/22/17 11:17 05/22/17 16:13 05/22/17 20:06 05/23/17 00:19 Bedside Glucose 159 mg/dl (70-99) 122 mg/dl (70-99) 107 mg/dl (70-99) 60 mg/dl (70-99) Test 05/23/17 00:43 05/23/17 01:50 05/23/17 04:00 05/23/17 05:31 Bedside Glucose 58 mg/dl (70-99) 109 mg/dl (70-99) 117 mg/dl (70-99) Activated Partial Thromboplast Time 32.8 SECONDS (21.0-31.0) Partial Thromboplastin Ratio 1.3 Anion Gap 13.0 mmol/L (3-11) Est Creatinine Clear Calc Drug Dose 11.0 ml/min Estimated GFR () 7.1 Estimated GFR (Non- 6.1 BUN/Creatinine Ratio 7.7 (10-20) Calcium Level 8.5 mg/dl (8.5-10.1) Allergies Coded Allergies: Codeine (Verified Allergy, Intermediate, NAUSEA AND VOMITING, 05/07/17) QUESTIONABLE ALLERGY, STILL QUESTIONABLE BUT D/C SHONDA WITH COD 02/20/17 Tigecycline (Verified Allergy, Mild, ?RASH, 05/07/17) Clindamycin (Verified Allergy, Unknown, Unknown, 05/07/17) Penicillins (Verified Allergy, Unknown, PT HAS HAD MEFOXIN W/OUT A PROBLEM , 05/07/17) HAD MEFOXIN W/O PROBLEM Ciprofloxacin (Verified Adverse Reaction, Intermediate, nausea,vomiting, generalized weakness, 05/07/17) Morphine (Verified Adverse Reaction, Intermediate, TREMBLING,NAUSEA AND VOMITING, 05/07/17) Opioid Analgesics (Verified Adverse Reaction, Intermediate, "ALL RX PAIN MEDS CAUSE SEVERE NAUSEA", 05/07/17) Levofloxacin (Verified Adverse Reaction, Mild, Cipro/Levaquin (IV & po) = N & V, 05/07/17) Oxycodone (Verified Adverse Reaction, Unknown, N/V/D, 05/07/17) SPOKE WITH PATIENT ON 07/29/15, DOES NOT REMEMBER ANY DIFFICULTY BREATHING JUST HIT HIM HARD. Medications Current Inpatient Medications Medications (Trade) Dose Ordered Sig/Etta Route Start Time Stop Time Status Last Admin Dose Admin Atorvastatin Calcium (Lipitor Tab) 40 mg HS PO 05/17/17 21:00 06/16/17 20:59 05/22/17 20:11 40 MG Bupropion HCl (Wellbutrin-Sr Tab) 200 mg QPM PO 05/17/17 21:00 06/16/17 20:59 05/22/17 20:13 200 MG Clopidogrel Bisulfate (plAVix TAB) 75 mg Q2D@0900 PO 05/18/17 09:00 06/17/17 08:59 05/22/17 08:16 75 MG Gabapentin (Neurontin Cap) 100 mg BID PO 05/17/17 21:00 06/16/17 20:59 05/22/17 20:13 100 MG Albuterol/ Ipratropium (Duoneb) 3 ml QID PRN INH 05/17/17 20:15 06/16/17 20:14 05/19/17 04:00 3 ML Levothyroxine Sodium (Synthroid Tab) 112 mcg DAILYBB PO 05/18/17 06:00 06/17/17 05:59 05/23/17 05:45 112 MCG Miscellaneous Information (Order Awaiting Action) 1 ea QS N/A 05/18/17 00:00 06/17/17 00:00 Sevelamer HCl (Renagel Tab) 1,600 mg TIDM PO 05/18/17 07:15 06/17/17 07:14 05/18/17 15:56 1,600 MG Lactobacillus Acidophilus (Floranex Tab) 4 tab TIDM PO 05/18/17 07:15 06/17/17 07:59 05/22/17 16:16 4 TAB Acetaminophen (Tylenol Tab) 650 mg Q4H PRN PO 05/17/17 20:15 06/16/17 20:14 Glucose (Glucose 40% Gel) 15-30 GRAMS 15 GRAMS... UD PRN PO 05/17/17 20:15 06/16/17 20:14 05/23/17 00:51 30 GM Glucose (Glucose Chew Tab) 4-8 Tablets 4 Tabl... UD PRN PO 05/17/17 20:15 06/16/17 20:14 Dextrose (Dextrose 50% 50ML Syringe) 25-50ML OF 50% DW IV FOR... UD PRN IV 05/17/17 20:15 06/16/17 20:14 05/23/17 01:31 25 ML Glucagon (Glucagon Inj) 1 mg UD PRN SQ 05/17/17 20:15 06/16/17 20:14 Miscellaneous Information (Consult Glycemic Management Pharmacy) 1 ea UD PRN N/A 05/17/17 20:52 06/16/17 20:51 Levofloxacin 500 mg/Prmx 100 ml @ 100 mls/hr Q48H IV 05/19/17 20:00 05/25/17 19:59 05/21/17 20:51 100 MLS/HR Midazolam HCl (Versed Inj) 2 mg Q2H PRN IV 05/19/17 07:15 06/18/17 07:14 05/23/17 00:15 2 MG Fentanyl Citrate (Fentanyl Inj) 50 mcg Q2H PRN IV 05/19/17 07:15 06/02/17 07:14 05/22/17 23:38 50 MCG Levalbuterol (Xopenex Hfa Inhaler) 4 puffs Q8R INH 05/19/17 16:00 06/18/17 15:59 05/23/17 07:34 4 PUFFS Heparin Sodium (Porcine) (Heparin Sq 5000 Unit/0.5ml) 5,000 unit BID SC 05/20/17 21:00 06/19/17 20:59 05/22/17 20:14 5,000 UNIT Enteral Nutritional Formula (Novasource Renal) 1,000 ml UD PRN PO 05/22/17 09:00 06/21/17 08:59 05/21/17 14:16 1,000 ML Buspirone HCl (Buspar Tab) 5 mg BID PO 05/21/17 21:00 06/20/17 20:59 05/22/17 20:10 5 MG Insulin Aspart (novoLOG ASPART) SLIDING SCALE If CARB RA... Q4H SC 05/21/17 16:00 06/20/17 15:59 05/22/17 11:19 3 UNITS Metoprolol Tartrate (Lopressor Tab) 75 mg BID PO 05/22/17 21:00 06/21/17 20:59 05/22/17 20:12 75 MG Insulin Glargine (Lantus Solostar Pen) see protocol text DAILY SC 05/23/17 09:00 06/22/17 08:59 Bupropion HCl (Wellbutrin Tab) 75 mg BID PO 05/23/17 09:00 06/22/17 08:59 Epoetin Diaz (Procrit Inj) 10,000 units UD IV 05/24/17 08:30 4/5/18 08:29 UNV Impression (1) End-stage renal disease on hemodialysis (2) Bronchitis (3) Tracheomalacia (4) Diabetes mellitus (5) Anemia Patient admitted to the hospital w/ recurrent bronchitis. He has a history of severe tracheal malacia with chronic bronchiectasis. He tested negative for Influenza. He is now on broad spectrum antibiotics. Blood cultures and Mycoplasma testing are pending. CXR is negative for infiltrates. PMH - ESRD due to diabetic nephropathy on IHD since 12/25 (HD TTS at [facility] - 4 hrs 2K 2Ca F180NR Qb 450 cc/min HCO3 34 EDW 83 kg), IDDM, HTN , PVD s/p R femoral artery bypass, anemia, hypothyroidism, hypercholesterolemia , bipolar disorder, COPD w/ severe tracheomalacia and chronic bronchiectasis ( quit smoking ~ 2013). Recommendations -- HD had hemodialysis On Tuesday, currently electrolyte and volume status stable. No need for dialysis today, will keep him on schedule for tomorrow as his regular day -- avoid IV fluid -- on Levaquin, dose appropriate for ESRD -- Epogen [id number] units with hemodialysis tomorrow Will follow.
[2017-05-23] MEDS: SENNA 8.6 MG TAB PO SCH (11:59)
[2017-05-23] MEDS: POLYETHYLENE (MIRALAX) 17 GM PACK PO SCH (11:59)
--- NOTE | 2017-05-23 13:21 | Pharmacy Progress Note ---
Glycemic Control Progress Note Date of Service May 23, 2017. Scope Glycemic Pharmacist consulted for glycemic control to write orders per [facility] inpatient glycemic control protocol. Objective Accuchecks BSG (last 24hrs): Test 05/22/17 16:13 05/22/17 20:06 05/23/17 00:19 05/23/17 00:43 Bedside Glucose 122 mg/dl (70-99) 107 mg/dl (70-99) 60 mg/dl (70-99) 58 mg/dl (70-99) Test 05/23/17 01:50 05/23/17 04:00 05/23/17 05:31 05/23/17 09:11 Bedside Glucose 109 mg/dl (70-99) 117 mg/dl (70-99) 109 mg/dl (70-99) Random Glucose 83 mg/dl (70-99) HbA1c: Test 05/18/17 04:10 Hemoglobin A1c 6.6 % (4.5-5.6) H Recent Pertinent Medications The patient is currently receiving: * Basal insulin: Lantus SQ Q AM: 15unit if BSG less than 140, 20 units if BSG 140-180 25units units if BSG greater than 180 * Correctional Insulin: Novolog Correction per scale Q 4 hours Goal Range: Low 120 mg/dL - High 150 mg/dL Correction Factor: 20 mg/dL/unit * Prandial insulin: Per carb ratio of 1 unit per 9 grams CHO consumed Outpatient Anti-Diabetic Meds * NovoLog insulin pump * Basal = 14.4 units/day * CF = 20mg/dl/unit * CR = 1 unit for every 12g CHO consumes * Follows with Dr Sumner at [facility] Endocrinology * A1c = 6.6% on 05/18/17 Assessment & Plan ASSESSMENT: 05/23/17 * BSGs have ranged 58-159 over the last 24 hours * Solu-Medrol IV discontinued yesterday afternoon * Continuous tube feeds discontinued this AM and patient is now tolerating a PO diet * Mild hypoglycemia noted last night, likely due to excess basal insulin on board while steroid effects began to dissipate * Will continue with SQ basal bolus regimen today, however reduce the Lantus dose to more closely match his out-pt basal needs * Will continue Q 4 hrs BSG checks as he does tend to be brittle. Once his BSGs begin to stabilize on a routine SQ regimen we can lessen the frequency * Will also reduce his prandial insulin doses now that steroids are discontinued * Of note, he is reported to have frequent low's in the outpatient setting. We may ultimately end up titrating back his insulin doses further during this admission if hypoglycemia recurs PLAN FOR INPATIENT GLYCEMIC CONTROL: * Decreasing Lantus to 15 units SQ Q AM * Continuing correction factor of 20 mg/dl/unit * Continuing carb ratio of 1 unit per 12 grams CHO consumed * Continuing goal range of Low 120 mg/dL - High 150 mg/dL * Continue Q 4 hr BSG checks * Please note that the plan above was derived based on current level of insulin resistance and hospital stress. These recommendations are appropriate for inpatient admission only. Plan of care upon discharge will need to be reassessed to avoid potential outpatient hypo/hyperglycemia. Thank you.
--- NOTE | 2017-05-23 17:56 | Critical Care Progress Note ---
Critical Care Progress Note Date of Service May 23, 2017. Attending Dr. Bragg Subjective On trach collar most of the day. Was on vent for about an hour, now again on trach collar. Still making the "snoring" sounds, during expiratory phase Comfortable otherwise Hypoglycemic today, required D50 ampulle Objective Laboratory Data - as noted Physical Exam: General -no obvious distress Eyes - EOMI No icterus, ENT -tracheostomy tube present Lungs - No paradoxical chest wall movement, very coarse with rhonchi throughout , no wheezes or rales. Loud expiratory "snoring" sound Heart - Reg rate and rhythm, Murmur present without rubs, clicks, or gallops appreciated Abdomen -soft nondistended Extremities - multiple missing toes, skin warm with normal peripheral perfusion Neuro - Alert, following complex commands Assessment & Plan Chronic respiratory failure Tracheomalacia Pneumonia Resolved septic shock ESRD on HD DM-1 Hypothyroidism Plan: Vent support at night, trach collar during the day [place] valve Passed swallow evaluation OOB to chair Continue Abx, on Levaquin HD as scheduled Lantus dose decreased to 15 units Psych evaluation regarding capacity to make decisions, especially advanced directives DNR per father DVT prophylaxis: Heparin sc Critical care time spent greater than 25 minutes May be transferred to floor Consults & Procedures Consultants: Cardiology: Marv Mental Health: Tian Pulmonology: Suzy Nephrology: Ruslan Procedures: Tracheostomy on 05/21/17 Data Medications: Current Inpatient Medications Medications (Trade) Dose Ordered Sig/Etta Route Start Time Stop Time Status Last Admin Dose Admin Atorvastatin Calcium (Lipitor Tab) 40 mg HS PO 05/17/17 21:00 06/16/17 20:59 05/22/17 20:11 40 MG Bupropion HCl (Wellbutrin-Sr Tab) 200 mg QPM PO 05/17/17 21:00 06/16/17 20:59 05/22/17 20:13 200 MG Clopidogrel Bisulfate (plAVix TAB) 75 mg Q2D@0900 PO 05/18/17 09:00 06/17/17 08:59 05/22/17 08:16 75 MG Gabapentin (Neurontin Cap) 100 mg BID PO 05/17/17 21:00 06/16/17 20:59 05/23/17 09:13 100 MG Albuterol/ Ipratropium (Duoneb) 3 ml QID PRN INH 05/17/17 20:15 06/16/17 20:14 05/19/17 04:00 3 ML Levothyroxine Sodium (Synthroid Tab) 112 mcg DAILYBB PO 05/18/17 06:00 06/17/17 05:59 05/23/17 05:45 112 MCG Miscellaneous Information (Order Awaiting Action) 1 ea QS N/A 05/18/17 00:00 06/17/17 00:00 Sevelamer HCl (Renagel Tab) 1,600 mg TIDM PO 05/18/17 07:15 06/17/17 07:14 05/23/17 16:32 1,600 MG Lactobacillus Acidophilus (Floranex Tab) 4 tab TIDM PO 05/18/17 07:15 06/17/17 07:59 05/23/17 16:32 4 TAB Acetaminophen (Tylenol Tab) 650 mg Q4H PRN PO 05/17/17 20:15 06/16/17 20:14 Glucose (Glucose 40% Gel) 15-30 GRAMS 15 GRAMS... UD PRN PO 05/17/17 20:15 06/16/17 20:14 05/23/17 16:11 15 GM Glucose (Glucose Chew Tab) 4-8 Tablets 4 Tabl... UD PRN PO 05/17/17 20:15 06/16/17 20:14 Dextrose (Dextrose 50% 50ML Syringe) 25-50ML OF 50% DW IV FOR... UD PRN IV 05/17/17 20:15 06/16/17 20:14 05/23/17 16:32 50 ML Glucagon (Glucagon Inj) 1 mg UD PRN SQ 05/17/17 20:15 06/16/17 20:14 Miscellaneous Information (Consult Glycemic Management Pharmacy) 1 ea UD PRN N/A 05/17/17 20:52 06/16/17 20:51 Levofloxacin 500 mg/Prmx 100 ml @ 100 mls/hr Q48H IV 05/19/17 20:00 05/25/17 19:59 05/21/17 20:51 100 MLS/HR Levalbuterol (Xopenex Hfa Inhaler) 4 puffs Q8R INH 05/19/17 16:00 06/18/17 15:59 05/23/17 14:48 4 PUFFS Heparin Sodium (Porcine) (Heparin Sq 5000 Unit/0.5ml) 5,000 unit BID SC 05/20/17 21:00 06/19/17 20:59 05/23/17 09:14 5,000 UNIT Buspirone HCl (Buspar Tab) 5 mg BID PO 05/21/17 21:00 06/20/17 20:59 05/23/17 09:13 5 MG Metoprolol Tartrate (Lopressor Tab) 75 mg BID PO 05/22/17 21:00 06/21/17 20:59 05/23/17 09:14 75 MG Epoetin Diaz (Procrit Inj) 10,000 units ONE IV 05/23/17 08:30 05/23/17 18:00 Hydromorphone HCl (Dilaudid Inj) 0.5 mg Q3H PRN IV 05/23/17 09:15 06/06/17 09:14 Lorazepam 1 mg/ Syringe 1 ml @ 1 mls/min Q6H PRN IV 05/23/17 09:15 06/22/17 09:14 Lorazepam (Ativan Inj) 1 mg Q6H PRN IV 05/23/17 09:30 06/22/17 09:29 Senna (Senokot Tab) 17.2 mg QAM PO 05/23/17 09:45 06/22/17 09:44 05/23/17 11:59 17.2 MG Polyethylene (Miralax Powder Packet) 17 gm DAILY PO 05/23/17 09:45 06/22/17 09:44 05/23/17 11:59 17 GM Bisacodyl (Dulcolax Supp) 10 mg Q12H PRN MD 05/23/17 09:45 06/22/17 09:44 Insulin Aspart (novoLOG ASPART) SLIDING SCALE If CARB RA... Q4H SC 05/23/17 12:00 06/22/17 11:59 05/23/17 12:02 3 UNITS Insulin Glargine (Lantus Solostar Pen) 15 units DAILY SC 05/24/17 09:00 06/23/17 08:59 I & O: 24-Hour Column 05/24/17 08:00 Intake Total 300 ml Balance 300 ml Vital Signs: Date Time Temp Pulse Resp B/P (MAP) Pulse Ox O2 Delivery O2 Flow Rate FiO2 05/23/17 16:00 Trach Collar 35 05/23/17 16:00 81 16 152/95 (114) 90 Trach Collar 35 05/23/17 16:00 35 05/23/17 12:00 35 18 12:00 Trach Collar 35 05/23/17 12:00 82 16 147/97 (114) 96 Trach Collar 35 05/23/17 08:00 35 05/23/17 08:00 76 16 152/98 (116) 94 Trach Collar 35 05/23/17 08:00 Trach Collar 35 05/23/17 08:00 CPAP 35 Trach Collar 05/23/17 06:02 75 7 123/82 (96) 97 CPAP 35 05/23/17 05:27 35 05/23/17 05:01 84 10 158/102 (120) 100 CPAP 35 05/23/17 04:01 78 10 137/96 (110) 100 CPAP 35 05/23/17 04:00 99 CPAP 35 05/23/17 04:00 35 05/23/17 03:17 35 05/23/17 03:02 72 8 134/93 (107) 100 CPAP 35 05/23/17 02:01 84 2 149/96 (113) 100 CPAP 35 05/23/17 01:02 85 11 132/106 (115) 99 CPAP 35 05/23/17 00:25 35 05/23/17 00:02 91 12 156/107 (123) 96 CPAP 35 05/23/17 00:00 35 05/22/17 23:59 99 CPAP 35 05/22/17 23:23 77 12 97 Mechanical Ventilator 35 05/22/17 23:01 76 14 116/80 (92) CPAP 35 05/22/17 22:02 82 9 129/94 (106) 98 CPAP 35 05/22/17 21:06 35 05/22/17 21:02 96 144/97 (113) 98 Trach Collar 35 05/22/17 20:01 36.8 102 152/86 (108) 95 Trach Collar 35 05/22/17 20:00 97 Trach Collar 10.0 35 05/22/17 18:00 102 18 153/93 (113) 98 Trach Collar 35 Laboratory Results: Last 24 Hours Test 05/22/17 20:06 05/23/17 00:19 3/5/18 00:43 05/23/17 01:05 Bedside Glucose 107 mg/dl 60 mg/dl 58 mg/dl 68 mg/dl Test 05/23/17 01:25 05/23/17 01:50 05/23/17 04:00 05/23/17 05:31 Bedside Glucose 69 mg/dl 109 mg/dl 117 mg/dl Activated Partial Thromboplast Time 32.8 SECONDS Partial Thromboplastin Ratio 1.3 Sodium Level 137 mmol/L Potassium Level 4.8 mmol/L Chloride Level 101 mmol/L Carbon Dioxide Level 23 mmol/L Anion Gap 13.0 mmol/L Blood Urea Nitrogen 69 mg/dl Creatinine 8.94 mg/dl Est Creatinine Clear Calc Drug Dose 11.0 ml/min Estimated GFR () 7.1 Estimated GFR (Non- 6.1 BUN/Creatinine Ratio 7.7 Random Glucose 83 mg/dl Calcium Level 8.5 mg/dl Test 05/23/17 09:11 05/23/17 11:25 Bedside Glucose 109 mg/dl 96 mg/dl
[2017-05-23] MEDS: LEVOFLOXACIN / D5W 500 MG in PREMIXED IN D5W 100 ML IV SCH (19:52)
[2017-05-23] MEDS: BuPROPion SR 100 MG TABCR PO SCH (19:53)
[2017-05-23] MEDS: ATORVASTATIN 40 MG TAB PO SCH (19:53)
[2017-05-23] MEDS: LORAZEPAM 2 MG/ML 1 ML VIAL IV PRN (20:58)
[2017-05-24] VITALS (25 sets, daily range): BP systolic 113–160; BP diastolic 75–88; PULSE 68–96; TEMP 36.5–36.8; O2SAT 93–100
[2017-05-24] MEDS: DEXTROSE 50% 50 ML SYR IV PRN (03:31)
[2017-05-24] MEDS: INSULIN ASPART 100 UNITS/ML 3 ML PEN SC SCH ×4 (03:32→17:03)
[2017-05-24] MEDS: LEVOTHYROXINE 112 MCG TAB PO SCH (05:00)
[2017-05-24] MEDS: LORAZEPAM 2 MG/ML 1 ML VIAL IV PRN (05:00)
[2017-05-24 05:49] LABS: BASO % 0.1 %; BASO ABS # 0.01 K/uL (0-0.2); EOS % 0.7 %; EOS ABS # 0.06 K/uL (0-0.5); HEMATOCRIT 29.5 % (42-52); HEMOGLOBIN 9.6 g/dL (14.0-18.0); IG# 0.03 K/uL (0.00-0.02); LYMPH % 11.8 %; MEAN CELL VOLUME 102.4 fL (80-100); MEAN CORPUSCULAR HEMOGLOBIN 33.3 pg (25-34); MEAN CORPUSCULAR HGB CONC 32.5 g/dl (32-36); MEAN PLATELET VOLUME 10.1 fL (7.4-10.4); MONO % 8.9 %; MONO ABS # 0.75 K/uL (0.11-0.59); NEUT % 78.1 %; NEUT ABS # 6.59 K/uL (1.4-6.5); PLATELET COUNT 165 K/uL (130-400); RED CELL DISTRIBUTION WIDTH CV 14.5 % (11.5-14.5); RED CELL DISTRIBUTION WIDTH SD 54.3 fL (36.4-46.3); WHITE BLOOD COUNT 8.44 K/uL (4.8-10.8)
[2017-05-24 06:39] LABS: CALCIUM 8.2 mg/dl (8.5-10.1); CREATININE 10.6 mg/dl (0.60-1.40); PHOSPHORUS 6.1 mg/dl (2.5-4.9); POTASSIUM 4.7 mmol/L (3.5-5.1)
[2017-05-24] MEDS: LEValbuterol HFA 15GM INHALER INH SCH ×2 (07:37→15:04)
[2017-05-24] MEDS: BREO ELLIPTA: ORDER AWAITING ACTION SCH ×2 (08:00→16:00)
[2017-05-24] MEDS: CLOPIDOGREL BISULFATE 75 MG TAB PO SCH (08:31)
[2017-05-24] MEDS: SEVELAMER HYDROCH 800 MG TAB PO SCH ×3 (08:31→16:30)
[2017-05-24] MEDS: GABAPENTIN 100 MG CAP PO SCH (08:32)
[2017-05-24] MEDS: SENNA 8.6 MG TAB PO SCH (08:32)
[2017-05-24] MEDS: LACTOBACILLUS ACIDOPHILUS (FLORANEX) TAB PO SCH ×3 (08:32→16:30)
[2017-05-24] MEDS ORDERED: INSULIN GLARGINE SOLOSTAR 100 UNITS/ML 3 ML PEN SQ SCH (09:00)
[2017-05-24] MEDS ORDERED: INSULIN GLARGINE SOLOSTAR 100 UNITS/ML 3 ML PEN SC SCH ×2 (09:00)
[2017-05-24] MEDS ORDERED: BSP5 PO (09:10)
[2017-05-24] MEDS ORDERED: Levalbuterol INH (09:10)
[2017-05-24] MEDS ORDERED: LORA-741 PO (09:10)
[2017-05-24] MEDS ORDERED: MRLP17 PO (09:10)
[2017-05-24] MEDS ORDERED: METO50TA16 PO (09:10)
[2017-05-24] MEDS ORDERED: NVLGIPEN SC (09:10)
[2017-05-24] MEDS ORDERED: LEVO500T19 PO (09:10)
[2017-05-24] MEDS ORDERED: INSDGIPEN SQ ×2 (09:10→10:27)
[2017-05-24] MEDS ORDERED: ACET-1047 PO (09:10)
[2017-05-24] MEDS ORDERED: SENN-61 PO (09:10)
[2017-05-24] MEDS ORDERED: HPRIS5M SC (09:10)
--- NOTE | 2017-05-24 09:27 | Discharge Instructions ---
Discharge Instructions Date of Service May 24, 2017. Admission Reason for Admission: Septic Shock Discharge Discharge Diagnosis / Problem: septic shock, respiratory failure, s/p tracheostomy placement Discharge Goals Goal(s): Improve disease control, Learn about illness, Diagnostic testing, Therapeutic intervention Activity Recommendations Activity Level: Assistance Required Therapies: Physical Therapy, Occupational Therapy, Speech Therapy . Additional Information Patient informed of condition: Yes Advance Directives: No DNR: Yes Level of Care: Other (L-TACH) Communicable Disease: No Prognosis: Stable Oxygen at (LPM): 40% FIO2 via trach collar Griffin Catheter: No Instructions / Follow-Up Instructions / Follow-Up After discharge from [facility] - 1. follow-up with [facility] Cardiology - Dr. Casper Ontiveros or one of his partners - within 1-2 weeks 2. follow-up with [facility] Pulmonary - Dr. Reilly Almonte or Dr. Shadi Ojeda - within 1 week 3. follow-up with [facility] Nephrology within 2 days of discharge Patient typically manages his T1DM with an insulin pump. His pump has been off while hospitalized at [facility] and he has been managed with either an insulin infusion or basal/bolus SC insulin. Current Hospital Diet Patient's current hospital diet: Renal Diet, Diabetes Type 1 Diet Discharge Diet Recommended Diet: Diabetes Type 1 Diet, Renal Diet Fluid Restriction: 1500 ml (6 cups) Diet Texture: Mechanical Soft (ground) Procedures Procedures Performed: CAT scan of the lungs echocardiogram tracheostomy placement right IJ CVC mechanical ventilation bronchoscopy Pending Studies Studies pending at discharge: yes List of pending studies: bronchoscopy cultures Physician Orders On Transfer Special Precautions: aspiration precautions Dressing Changes: right IJ CVC dressing/care per routine IV Therapy: none Vital Signs: per [facility] routine Weigh: daily Additional Orders: 1. hemodialysis schedule is typically Tuesday//Tuesday; however, he DID receive hemodialysis AM of 05/24/17. 2. BSG's ac/hs and 0200 3. Nocturnal ventilator settings at [facility] - PSV, 10/, 40% FiO2 * FiO2 40% via trach collar during the day POLST Discussion: without POLST completion Laboratory Results Hemoglobin A1c Test 05/18/17 04:10 Range/Units Estimated Average Glucose 143 mg/dl Hemoglobin A1c 6.6 H 4.5-5.6 % Medical Emergencies . Who to Call and When: Medical Emergencies: If at any time you feel your situation is an emergency, please call 911 immediately. . Non-Emergent Contact Non-Emergency issues call your: Primary Care Provider, Sleeping Car Service Attendant Call Non-Emergent contact if: temperature is above 100.5, your pain is not controlled, your pain is worsening, your pain is unusual for you, your pain is concerning you, you have any medication questions . . "Provider Documentation" section prepared by Kameron Cheney. . Core Measure Problem Core Measures: None
--- NOTE | 2017-05-24 10:06 | Discharge Summary ---
Discharge Summary Date of Service May 24, 2017. Discharge Summary Admission Date: May 17, 2017 at 20:31 Discharge Date: May 24, 2017 Discharge Disposition: Acute care facility ([facility] - [place], [place]) Principal Diagnosis: acute/chronic hypercarbic/hypoxic respiratory failure Problems/Secondary Diagnoses: 1. LLL pneumonia, likely gram negative etiology - clinically resolved 2. septic shock 2nd to LLL pneumonia - resolved 3. COPD with exacerbation - resolved 4. bronchiectasis with exacerbation - resolved 5. severe tracheomalacia - s/p tracheostomy placement 6. long-standing T1DM on insulin pump previously 7. ESRD, 2nd to diabetic nephropathy, on HD (historically //Tue) 8. hyperlipidemia 9. type 2 SC / myocardial demand ischemia (although cannot fully r/o ACS/type 1 SC) 10. HTN 11. paroxysmal atrial flutter - resolved 12. anxiety disorder 13. hypothyroidism 14. hyperlipidemia 15. PAD 16. TMA of left foot 17. multiple toe resections, right foot 18. question of cognitive impairment/early dementia 19. history of prior tobacco dependence - quit 2013 20. depression 21. past psychiatric consultation notes mention possible personality disorder 22. anemia of chronic disease 23. moderate aortic stenosis 24. chronic diastolic CHF 25. moderate protein calorie malnutrition 26. suspected paroxysmal atrial flutter - resolved, in NSR Immunizations: Have You Had Influenza Vaccine: Yes Influenza Vaccine Date: Dec 19, 2014 History of Tetanus Vaccine?: Yes Tetanus Immunization Date: Apr 02, 2013 History of Pneumococcal: 2008 and 2013 Pneumococcal Date: Mar 21, 2008 History of Hepatitis B Vaccine: Unknown Hepatitis Immunization Date: Feb 15, 2007 Procedures: 1. CT head - Bilateral maxillary sinus air-fluid levels which may be related to intubation or reflect acute sinusitis. No ICH or acute stroke. 2. CTA chest - IMPRESSION: 1. Study is negative for pulmonary embolus. 2. Extensive bilateral consolidative infiltrative change. 3. Small bilateral pleural effusions. 4. Endotracheal tube 6 cm above the bj. 5. Nasogastric tube within the stomach. 6. Bony changes previously described is suggestive of metabolic bone disease or renal osteodystrophy. 3. echocardiogram - * -- Conclusions -- * Limited views were obtained. * The left ventricular ejection fraction is grossly normal. * Regional wall motion abnormalities cannot be excluded due to limited visualization. * Moderate valvular aortic stenosis. 4. right IJ CVC placement 5. intubation with mechanical ventilation 6. tracheostomy placement - Srikanth Gutierrez DO 7. limited bedside ultrasound of lungs - Srikanth Gutierrez DO 8. hemodialysis 9. numerous chest x-rays Consultations: pulmonary critical care infectious disease nephrology cardiology PT, OT, speech pharmacy for glycemic management social work psychiatry to assist with capacity evaluation Medication Reconciliation New Medications: Levofloxacin (Levaquin) 500 Mg Tab 1 TAB PO DIRECTED, #1 TAB give on 05/25/17 then stop. Lorazepam (Ativan) 0.5 Mg Tab 0.5-1 MG PO Q6H PRN for anxiety, #30 TAB 0 Refills Acetaminophen (Mapap) 325 Mg Tab 650 MG PO Q4H PRN for mild pain / fever, #30 TAB 0 Refills Buspirone HCl (Buspirone HCl) 5 Mg Tab 5 MG PO BID, #60 TAB 0 Refills Heparin Sod (Porcine) (Heparin Sodium) 5,000 Unit/0.5 Ml Inj 5000 UNIT SC BID, #60 SYR 1 Refill Insulin Aspart (Novolog Flexpen) 100 Units/Ml Inj 0 UNITS SC Q4H, #1 PEN 2 Refills goal range blood sugars: 120-150 correction factor: 25 mg/DL/unit carb ratio: 1 unit per 16 grams of carbohydrate consumed Insulin Glargine (Lantus Solostar) 100 Unit/Ml Inj 6 UNITS SQ BID, #1 SYR 1 Refill Polyethylene (Miralax) 17 Gm Pow 17 GM PO DAILY, #1 BTL 2 Refills Senna (Senokot) 8.6 Mg Tab 17.2 MG PO QAM, #60 TAB 2 Refills [Levalbuterol] () INH 4 PUFFS INH Q8H, #1 INHALER 5 Refills Changed Medications: Metoprolol Tartrate (Lopressor) (Lopressor) 50 Mg Tab 75 MG PO BID, #90 TABS 5 Refills (Changed from: 50 MG; Refills: ) Continued Medications: Atorvastatin (Lipitor) 40 Mg Tab 40 MG PO HS Bupropion Hcl (Wellbutrin Sr) 200 Mg Tabcr 200 MG PO QPM Cinacalcet (Sensipar) 30 Mg Tab 30 MG PO DAILY, TAB Clopidogrel Bisulfate (Clopidogrel) 75 Mg Tab 75 MG PO Q2D Fluticasone Furoate-Vilanterol (Breo Ellipta 200-25 Mcg/INH) 1 Inh Inh 1 PUFF INH DAILY Gabapentin (Gabapentin) 100 Mg Cap 100 MG PO BID Ipratropium-Albuterol (Duoneb) 3 Ml Nebu 3 ML INH QID PRN for SOB/Wheezing for 10 Days, #40 VIAL Levothyroxine Sodium (Levothyroxine Sodium) 112 Mcg Tab 112 MCG PO DAILY Sevelamer Carbonate (Renvela) 800 Mg Tab 1600 MG PO TID Umeclidinium Ulen (Incruse Ellipta) 62.5 Mcg/Inh Inh 1 PUFF INH DAILY Discontinued Medications: Amlodipine Besylate (Norvasc) 2.5 Mg Tab 2.5 MG PO 4XWK TAKE THIS MEDICATION ON NON DIALYSIS DAYS, EVERY TUESDAY,TUESDAY, TUESDAY AND TUESDAY Furosemide (Furosemide) 80 Mg Tab 80 MG PO BID Insulin Aspart (novoLOG INSULIN PUMP ) 1 Ea Inj 1 EA N/A UD, EA Prednisone (Prednisone) 10 Mg Tab 10 MG PO DIRECTED for 8 Days, #15 TAB 3 tablets daily x 2 days, 2 tablets daily x 3 days, 1 tablet daily x 3 days Discharge Exam Physical Exam: General Appearance: no apparent distress ENT: pharynx normal (MMM, no lesions, no thrush) Neck: no JVD, + pertinent finding (right IJ CVC in place, no tenderness/ erythema/drainage; tracheostomy intact, no significant swelling, no drainage, no secretions) Respiratory/Chest: no respiratory distress, no accessory muscle use, + rales (fine, faint - bases, worse on left), + wheezing (end-exp wheeze; course BS b/l ) Cardiovascular: regular rate, rhythm, no gallop, + systolic murmur (2/6 holosystolic RUSB/LLSB) Abdomen / GI: normal bowel sounds, non tender, no organomegaly, + distended (mild) Extremities: no pedal edema, + pertinent finding (pulses at best 1+ b/l; TMA - left foot; multiple toe amputations right foot; left arm fistula with + bruit & thrill ) Neurologic/Psychiatric: alert, oriented x 3 Skin: no rash Hospital Course HISTORY OF PRESENT ILLNESS: Complicated 51yo male with past medical history of Type 1 diabetes mellitus with neuropathy (on insulin pump), PAD, COPD, HTN, diastolic CHF, hypothyroidism , mood disorder, dyslipidemia, chronic respiratory failure on home O2 3-4L, tracheomalacia/bronchiectasis, and ESRD on HD //Tue - just recently discharged from the hospital 10 days ago after being treated for HCAP (received Zyvox and meropenem 5 days then was discharged on doxycycline and tapering dose of prednisone). He presented with complaints of not feeling well since his recent hospital discharge. He reported worsening O2 requirements at home, fatigue, lethargy, and worsening dyspnea. He received hemodialysis the morning of admission and after getting home felt very tired and his breathing was severely labored. He was brought to the ED and was found to have hypotension and significant scattered rhonchi. BP on arrival was 60/40 improving to 90/50 after 2 saline boluses. Denied any diarrhea or blood in the stool. He is anuric due to his ESRD. Denied any chest pain but admitted to worsening shortness of breath. He reported that he recently finished his tapering dose of prednisone. Last hospital admission at [facility] he had a CT angiogram of the chest (April 30) that showed no pulmonary embolism but demonstrated bilateral infiltrates. Last admission patient had a bronchoscopy; cultures showed Haemophilus influenza beta-lactamase negative and yeast penicillium species. HOSPITAL COURSE: 1. septic shock - the patient was admitted to the ICU and required pressors for his shock that was due to LLL pneumonia. Blood cultures remained negative during his stay. Pressors were weaned off within about 24 hours of admission. He was treated with broad-spectrum IV antibiotics and these were ultimately weaned after 5-6 days. At that time he was continued on IV levaquin only for his LLL pneumonia. At time of transfer to [facility] he will only need 1 more day of levaquin on 05/25/2017 to complete a 10-day course of IV/PO antibiotics. Bronchoscopy cultures did not grow any bacterial pathogen; fungal culture grew adair only. 2. acute/chronic hypercarbic/hypoxic respiratory failure - 2nd to LLL pneumonia , presumably gram negative etiology, as well as COPD exacerbation/ bronchiectasis exacerbation. This is in the setting of severe tracheomalacia. After the patient was transferred from the ICU to the telemetry unit on 05/18/17 he unfortunately got worse from a pulmonary standpoint. His respiratory status deteriorated quickly, requiring transfer back to the ICU. At that time he was intubated and placed on the vent. Due to his severe tracheomalacia and dynamic airway collapse multiple discussions were held with the patient's father regarding tracheostomy placement. His father ultimately gave consent for such and on 05/21/17 he underwent bedside tracheostomy placement by Dr. Srikanth Gutierrez. On 05/22/17 the patient was taken off the ventilator and placed on FiO2 via trach collar. He was fitted with a passy lizz valve at that time. Since his tracheostomy placement he has been vented at night with vent settings - PSV 10/5, 40% FiO2. During the day he is on trach collar with FiO2 of 40%. Again his COPD exacerbation/LLL pneumonia was treated with IV steroids and broad -spectrum IV antibiotics. Steroids have been discontinued, and his antibiotics have been weaned to levaquin only. He has 1 day left of levaquin on 05/25/17. 3. T1DM - he was managed by our pharmacy glycemic team, initially with insulin infusion, then basal/bolus SC insulin regimen. He had been receiving about 14 units of basal insulin via his pump at home. He had several lows while in the ICU. At discharge our pharmacy team has recommended lantus 6 units BID along with novolog for meals/hs. 4. NSTEMI - unclear if this was a type 1 or type 2 SC as he had no ischemic symptoms. He has chronic inferior lead T wave inversions but these were not any worse than previous. Given his PAD, ESRD, etc he likely does have underlying CAD but again difficult to say if this was a type 1 or type 2 SC. Peak troponin was 19. Last troponin on 05/21/17 was 3. He was seen in consult by cardiology for this issue. They treated him with 48 hours of heparin. He will remain on beta piedad, plavix, and statin. Echo with grossly normal LV function. Consider adding 81mg aspirin daily. He will need cardiology follow-up. 5. ESRD on HD Tues/Thurs/Sat - he received HD on the AM of 05/24/17. Typically follows a Tues/Thurs/Sat schedule, however. 6. chronic diastolic CHF - clinically compensated while here. 7. hypothyroidism - compensated; normal TSH on 04/29/17; cont synthroid at current dose. 8. DVT proph - heparin BID. 9. diabetic peripheral neuropathy - gabapentin low-dose. 10. depression/anxiety - wellbutrin, ativan prn, buspar BID. His father reports that they are not sure if he has capacity and they have been concerned for some time about his ability to care for himself. Of note - the patient's suddenly about 2 weeks ago. The patient has a 17yo son in the [place] area. Past psych consultations in the EMR suggest he may have a personality disorder. There has also been concern about cognitive impairment/early dementia. 11. tachycardia - following his tracheostomy placement on 05/21/17 it appeared he developed a 2:1 rapid atrial flutter. He was treated with beta blockers and converted back to NSR several hours later. He had no further dysrhythmia. Systemic anticoagulation was not pursued. 12. protein calorie malnutrition - likely at least moderate - diet resumed prior to transfer. This will need to be addressed at [facility]. 13. constipation - senna, miralax + dulcolax suppos prn. At time of transport the patient has a right IJ CVC. Dialysis is completed via LUE AV fistula. 05/21/17 18:03 Red Blood Count 3.28, Mean Corpuscular Volume 104.9, Mean Corpuscular Hemoglobin 33.8, Mean Corpuscular Hemoglobin Concent 32.3, Mean Platelet Volume 10.2, Neutrophils (%) (Auto) 93.3, Lymphocytes (%) (Auto) 2.6, Monocytes (%) ( Auto) 3.6, Eosinophils (%) (Auto) 0.0, Basophils (%) (Auto) 0.1, Neutrophils # ( Auto) 15.35, Lymphocytes # (Auto) 0.43, Monocytes # (Auto) 0.59, Eosinophils # ( Auto) 0.00, Basophils # (Auto) 0.01 05/22/17 05:25 Red Blood Count 2.90, Mean Corpuscular Volume 102.8, Mean Corpuscular Hemoglobin 33.4, Mean Corpuscular Hemoglobin Concent 32.6, Mean Platelet Volume 10.2, Neutrophils (%) (Auto) 88.8, Lymphocytes (%) (Auto) 4.8, Monocytes (%) ( Auto) 5.9, Eosinophils (%) (Auto) 0.0, Basophils (%) (Auto) 0.1, Neutrophils # ( Auto) 8.12, Lymphocytes # (Auto) 0.44, Monocytes # (Auto) 0.54, Eosinophils # ( Auto) 0.00, Basophils # (Auto) 0.01 05/24/17 05:25 Red Blood Count 2.88, Mean Corpuscular Volume 102.4, Mean Corpuscular Hemoglobin 33.3, Mean Corpuscular Hemoglobin Concent 32.5, Mean Platelet Volume 10.1, Neutrophils (%) (Auto) 78.1, Lymphocytes (%) (Auto) 11.8, Monocytes (%) ( Auto) 8.9, Eosinophils (%) (Auto) 0.7, Basophils (%) (Auto) 0.1, Neutrophils # ( Auto) 6.59, Lymphocytes # (Auto) 1.00, Monocytes # (Auto) 0.75, Eosinophils # ( Auto) 0.06, Basophils # (Auto) 0.01 05/21/17 18:03 05/22/17 05:25 05/23/17 05:31 05/24/17 05:25 Test 05/21/17 12:05 05/21/17 16:20 05/21/17 18:03 05/21/17 20:28 Bedside Glucose 176 mg/dl (70-99) 289 mg/dl (70-99) 283 mg/dl (70-99) White Blood Count 16.45 K/uL (4.8-10.8) Red Blood Count 3.28 M/uL (4.7-6.1) Hemoglobin 11.1 g/dL (14.0-18.0) Hematocrit 34.4 % (42-52) Mean Corpuscular Volume 104.9 fL (80-100) Mean Corpuscular Hemoglobin 33.8 pg (25-34) Mean Corpuscular Hemoglobin Concent 32.3 g/dl (32-36) Platelet Count 222 K/uL (130-400) Mean Platelet Volume 10.2 fL (7.4-10.4) Neutrophils (%) (Auto) 93.3 % Lymphocytes (%) (Auto) 2.6 % Monocytes (%) (Auto) 3.6 % Eosinophils (%) (Auto) 0.0 % Basophils (%) (Auto) 0.1 % Neutrophils # (Auto) 15.35 K/uL (1.4-6.5) Lymphocytes # (Auto) 0.43 K/uL (1.2-3.4) Monocytes # (Auto) 0.59 K/uL (0.11-0.59) Eosinophils # (Auto) 0.00 K/uL (0-0.5) Basophils # (Auto) 0.01 K/uL (0-0.2) RDW Standard Deviation 56.5 fL (36.4-46.3) RDW Coefficient of Variation 14.7 % (11.5-14.5) Immature Granulocyte % (Auto) 0.4 % Immature Granulocyte # (Auto) 0.07 K/uL (0.00-0.02) Anion Gap 13.0 mmol/L (3-11) Est Creatinine Clear Calc Drug Dose 14.4 ml/min Estimated GFR () 9.8 Estimated GFR (Non- 8.5 BUN/Creatinine Ratio 6.4 (10-20) Calcium Level 7.9 mg/dl (8.5-10.1) Troponin I 3.960 ng/ml (0-0.045) Beta-Hydroxybutyric Acid 16.89 mg/dL (0.2-2.81) Test 05/22/17 00:36 05/22/17 04:25 05/22/17 05:25 05/22/17 08:13 Bedside Glucose 210 mg/dl (70-99) 230 mg/dl (70-99) 181 mg/dl (70-99) White Blood Count 9.15 K/uL (4.8-10.8) Red Blood Count 2.90 M/uL (4.7-6.1) Hemoglobin 9.7 g/dL (14.0-18.0) Hematocrit 29.8 % (42-52) Mean Corpuscular Volume 102.8 fL (80-100) Mean Corpuscular Hemoglobin 33.4 pg (25-34) Mean Corpuscular Hemoglobin Concent 32.6 g/dl (32-36) Platelet Count 167 K/uL (130-400) Mean Platelet Volume 10.2 fL (7.4-10.4) Neutrophils (%) (Auto) 88.8 % Lymphocytes (%) (Auto) 4.8 % Monocytes (%) (Auto) 5.9 % Eosinophils (%) (Auto) 0.0 % Basophils (%) (Auto) 0.1 % Neutrophils # (Auto) 8.12 K/uL (1.4-6.5) Lymphocytes # (Auto) 0.44 K/uL (1.2-3.4) Monocytes # (Auto) 0.54 K/uL (0.11-0.59) Eosinophils # (Auto) 0.00 K/uL (0-0.5) Basophils # (Auto) 0.01 K/uL (0-0.2) RDW Standard Deviation 55.0 fL (36.4-46.3) RDW Coefficient of Variation 14.7 % (11.5-14.5) Immature Granulocyte % (Auto) 0.4 % Immature Granulocyte # (Auto) 0.04 K/uL (0.00-0.02) Nucleated RBC Absolute Count (auto) 0.02 K/uL (0-0) Nucleated Red Blood Cells % 0.2 % Activated Partial Thromboplast Time 35.9 SECONDS (21.0-31.0) Partial Thromboplastin Ratio 1.4 Anion Gap 10.0 mmol/L (3-11) Est Creatinine Clear Calc Drug Dose 13.2 ml/min Estimated GFR () 8.9 Estimated GFR (Non- 7.6 BUN/Creatinine Ratio 7.4 (10-20) Calcium Level 8.3 mg/dl (8.5-10.1) Total Bilirubin 0.5 mg/dl (0.2-1) Direct Bilirubin 0.2 mg/dl (0-0.2) Aspartate Amino Transf (AST/SGOT) 30 U/L (15-37) Alanine Aminotransferase (ALT/SGPT) 30 U/L (12-78) Alkaline Phosphatase 139 U/L (45-117) Total Protein 6.2 gm/dl (6.4-8.2) Albumin 2.3 gm/dl (3.4-5.0) Test 05/22/17 11:17 05/22/17 16:13 05/22/17 20:06 05/23/17 00:19 Bedside Glucose 159 mg/dl (70-99) 122 mg/dl (70-99) 107 mg/dl (70-99) 60 mg/dl (70-99) Test 05/23/17 00:43 05/23/17 01:05 05/23/17 01:25 05/23/17 01:50 Bedside Glucose 58 mg/dl (70-99) 68 mg/dl (70-99) 69 mg/dl (70-99) 109 mg/dl (70-99) Test 05/23/17 04:00 05/23/17 05:31 05/23/17 09:11 05/23/17 11:25 Bedside Glucose 117 mg/dl (70-99) 109 mg/dl (70-99) 96 mg/dl (70-99) Activated Partial Thromboplast Time 32.8 SECONDS (21.0-31.0) Partial Thromboplastin Ratio 1.3 Anion Gap 13.0 mmol/L (3-11) Est Creatinine Clear Calc Drug Dose 11.0 ml/min Estimated GFR () 7.1 Estimated GFR (Non- 6.1 BUN/Creatinine Ratio 7.7 (10-20) Calcium Level 8.5 mg/dl (8.5-10.1) Test 05/23/17 16:04 05/23/17 16:25 05/23/17 16:46 05/23/17 20:03 Bedside Glucose 65 mg/dl (70-99) 57 mg/dl (70-99) 152 mg/dl (70-99) 80 mg/dl (70-99) Test 05/23/17 23:11 05/23/17 23:33 05/24/17 03:25 05/24/17 03:51 Bedside Glucose 60 mg/dl (70-99) 138 mg/dl (70-99) 63 mg/dl (70-99) 167 mg/dl (70-99) Test 05/24/17 05:25 05/24/17 09:21 White Blood Count 8.44 K/uL (4.8-10.8) Red Blood Count 2.88 M/uL (4.7-6.1) Hemoglobin 9.6 g/dL (14.0-18.0) Hematocrit 29.5 % (42-52) Mean Corpuscular Volume 102.4 fL (80-100) Mean Corpuscular Hemoglobin 33.3 pg (25-34) Mean Corpuscular Hemoglobin Concent 32.5 g/dl (32-36) Platelet Count 165 K/uL (130-400) Mean Platelet Volume 10.1 fL (7.4-10.4) Neutrophils (%) (Auto) 78.1 % Lymphocytes (%) (Auto) 11.8 % Monocytes (%) (Auto) 8.9 % Eosinophils (%) (Auto) 0.7 % Basophils (%) (Auto) 0.1 % Neutrophils # (Auto) 6.59 K/uL (1.4-6.5) Lymphocytes # (Auto) 1.00 K/uL (1.2-3.4) Monocytes # (Auto) 0.75 K/uL (0.11-0.59) Eosinophils # (Auto) 0.06 K/uL (0-0.5) Basophils # (Auto) 0.01 K/uL (0-0.2) RDW Standard Deviation 54.3 fL (36.4-46.3) RDW Coefficient of Variation 14.5 % (11.5-14.5) Immature Granulocyte % (Auto) 0.4 % Immature Granulocyte # (Auto) 0.03 K/uL (0.00-0.02) Anion Gap 13.0 mmol/L (3-11) Est Creatinine Clear Calc Drug Dose 9.4 ml/min Estimated GFR () 5.8 Estimated GFR (Non- 5.0 BUN/Creatinine Ratio 7.7 (10-20) Calcium Level 8.2 mg/dl (8.5-10.1) Phosphorus Level 6.1 mg/dl (2.5-4.9) Magnesium Level 2.4 mg/dl (1.8-2.4) Venous Blood pH 7.28 (7.36-7.41) Venous Blood Partial Pressure CO2 54 mmHg (38.0-50.0) Venous Blood Partial Pressure O2 39 mmHg Venous Blood HCO3 25 mmol/L Venous Blood Oxygen Saturation 63.3 % Venous Blood Base Excess -2.5 mEq/L I would like to thank the physicians & staff of [facility] in [place], [place] for accepting this patient in transfer for ongoing care. Kameron Cheney MD Total Time Spent: Greater than 30 minutes This includes examination of the patient, discharge planning, medication reconciliation, and communication with other providers. Discharge Instructions Please refer to the electronic Patient Visit Report (Discharge Instructions) for additional information. Follow-Up to be arranged at [facility] Mr. Clark will need f/u with [facility], Pulmonary, and Nephrology upon transfer back to the [facility] after his stay at [facility] Additional Copies To Reilly Almonte DO; Casper Ontiveros M.D.; Denny Mercer D.O.; Srikanth Gutierrez D.O.
[2017-05-24] MEDS ORDERED: EPOETIN ALFA 10,000 UNITS/ML VIAL IV SCH (10:30)
--- NOTE | 2017-05-24 11:34 | Dialysis Progress Note ---
Hemodialysis Note Date of Service May 24, 2017. Chief Complaint Follow-up for end-stage renal disease hemodialysis. Subjective Gino was seen and examined during dialysis this morning. Has been tolerating dialysis well, tolerating UF, blood pressure acceptable. He has 4 kg above his dry weight and will aim for 4 liters UF if blood pressure tolerates. Review of Systems A complete review of systems was performed. Pertinent positives are noted above. All other systems are negative. Vital Signs Last 8 Hrs Date Time Temp Pulse Resp B/P (MAP) Pulse Ox O2 Delivery O2 Flow Rate FiO2 05/24/17 11:15 81 122/82 05/24/17 11:00 80 134/79 05/24/17 10:45 78 145/80 05/24/17 10:30 79 135/75 05/24/17 10:15 77 129/80 05/24/17 10:00 79 143/84 05/24/17 09:45 81 138/86 05/24/17 09:30 78 130/80 05/24/17 09:16 77 119/77 05/24/17 09:07 36.5 68 130/83 (99) 05/24/17 08:20 36.8 76 12 132/86 (101) 93 Trach Collar 40 05/24/17 07:38 73 14 98 Mechanical Ventilator 40 05/24/17 05:49 40 05/24/17 04:00 40 05/24/17 04:00 94 CPAP 40 Last Recorded Weight Weight (Kilograms): 91.300 Physical Exam GENERAL: Middle-aged male, AAA x 3,not in any distress. NECK: Supple, no JVD. trach collar in place RESPIRATORY: Coarse crackles bilaterally CARDIOVASCULAR: S1, S2 normal, rate rhythm regular. EXTREMITY: No lower extremity edema NEURO: moves all extremities PSYCHIATRY: Normal mood and judgment Family History Negative for CKD / ESRD Social History Smoking Status: Current every day smoker Drug Use: none Marital Status: Housing Status: lives with family Occupation: disabled . Medically disabled. Former smoker (Quit 2013) Laboratory Results Past 24 Hours 05/24/17 05:25 Red Blood Count 2.88, Mean Corpuscular Volume 102.4, Mean Corpuscular Hemoglobin 33.3, Mean Corpuscular Hemoglobin Concent 32.5, Mean Platelet Volume 10.1, Neutrophils (%) (Auto) 78.1, Lymphocytes (%) (Auto) 11.8, Monocytes (%) ( Auto) 8.9, Eosinophils (%) (Auto) 0.7, Basophils (%) (Auto) 0.1, Neutrophils # ( Auto) 6.59, Lymphocytes # (Auto) 1.00, Monocytes # (Auto) 0.75, Eosinophils # ( Auto) 0.06, Basophils # (Auto) 0.01 05/24/17 05:25 Test 05/23/17 16:04 05/23/17 16:25 05/23/17 16:46 05/23/17 20:03 Bedside Glucose 65 mg/dl (70-99) 57 mg/dl (70-99) 152 mg/dl (70-99) 80 mg/dl (70-99) Test 05/23/17 23:11 05/23/17 23:33 05/24/17 03:25 05/24/17 03:51 Bedside Glucose 60 mg/dl (70-99) 138 mg/dl (70-99) 63 mg/dl (70-99) 167 mg/dl (70-99) Test 05/24/17 05:25 05/24/17 09:21 White Blood Count 8.44 K/uL (4.8-10.8) Red Blood Count 2.88 M/uL (4.7-6.1) Hemoglobin 9.6 g/dL (14.0-18.0) Hematocrit 29.5 % (42-52) Mean Corpuscular Volume 102.4 fL (80-100) Mean Corpuscular Hemoglobin 33.3 pg (25-34) Mean Corpuscular Hemoglobin Concent 32.5 g/dl (32-36) Platelet Count 165 K/uL (130-400) Mean Platelet Volume 10.1 fL (7.4-10.4) Neutrophils (%) (Auto) 78.1 % Lymphocytes (%) (Auto) 11.8 % Monocytes (%) (Auto) 8.9 % Eosinophils (%) (Auto) 0.7 % Basophils (%) (Auto) 0.1 % Neutrophils # (Auto) 6.59 K/uL (1.4-6.5) Lymphocytes # (Auto) 1.00 K/uL (1.2-3.4) Monocytes # (Auto) 0.75 K/uL (0.11-0.59) Eosinophils # (Auto) 0.06 K/uL (0-0.5) Basophils # (Auto) 0.01 K/uL (0-0.2) RDW Standard Deviation 54.3 fL (36.4-46.3) RDW Coefficient of Variation 14.5 % (11.5-14.5) Immature Granulocyte % (Auto) 0.4 % Immature Granulocyte # (Auto) 0.03 K/uL (0.00-0.02) Anion Gap 13.0 mmol/L (3-11) Est Creatinine Clear Calc Drug Dose 9.4 ml/min Estimated GFR () 5.8 Estimated GFR (Non- 5.0 BUN/Creatinine Ratio 7.7 (10-20) Calcium Level 8.2 mg/dl (8.5-10.1) Phosphorus Level 6.1 mg/dl (2.5-4.9) Magnesium Level 2.4 mg/dl (1.8-2.4) Venous Blood pH 7.28 (7.36-7.41) Venous Blood Partial Pressure CO2 54 mmHg (38.0-50.0) Venous Blood Partial Pressure O2 39 mmHg Venous Blood HCO3 25 mmol/L Venous Blood Oxygen Saturation 63.3 % Venous Blood Base Excess -2.5 mEq/L Allergies Coded Allergies: Codeine (Verified Allergy, Intermediate, NAUSEA AND VOMITING, 05/07/17) QUESTIONABLE ALLERGY, STILL QUESTIONABLE BUT D/C SHONDA WITH COD 02/20/17 Tigecycline (Verified Allergy, Mild, ?RASH, 05/07/17) Clindamycin (Verified Allergy, Unknown, Unknown, 05/07/17) Penicillins (Verified Allergy, Unknown, PT HAS HAD MEFOXIN W/OUT A PROBLEM , 05/07/17) HAD MEFOXIN W/O PROBLEM Ciprofloxacin (Verified Adverse Reaction, Intermediate, nausea,vomiting, generalized weakness, 05/07/17) Morphine (Verified Adverse Reaction, Intermediate, TREMBLING,NAUSEA AND VOMITING, 05/07/17) Opioid Analgesics (Verified Adverse Reaction, Intermediate, "ALL RX PAIN MEDS CAUSE SEVERE NAUSEA", 05/07/17) Levofloxacin (Verified Adverse Reaction, Mild, Cipro/Levaquin (IV & po) = N & V, 05/07/17) Oxycodone (Verified Adverse Reaction, Unknown, N/V/D, 05/07/17) SPOKE WITH PATIENT ON 07/29/15, DOES NOT REMEMBER ANY DIFFICULTY BREATHING JUST HIT HIM HARD. Medications Current Inpatient Medications Medications (Trade) Dose Ordered Sig/Etta Route Start Time Stop Time Status Last Admin Dose Admin Atorvastatin Calcium (Lipitor Tab) 40 mg HS PO 05/17/17 21:00 06/16/17 20:59 05/23/17 19:53 40 MG Bupropion HCl (Wellbutrin-Sr Tab) 200 mg QPM PO 05/17/17 21:00 06/16/17 20:59 05/23/17 19:53 200 MG Clopidogrel Bisulfate (plAVix TAB) 75 mg Q2D@0900 PO 05/18/17 09:00 06/17/17 08:59 05/24/17 08:31 75 MG Gabapentin (Neurontin Cap) 100 mg BID PO 05/17/17 21:00 06/16/17 20:59 05/24/17 08:32 100 MG Albuterol/ Ipratropium (Duoneb) 3 ml QID PRN INH 05/17/17 20:15 06/16/17 20:14 05/19/17 04:00 3 ML Levothyroxine Sodium (Synthroid Tab) 112 mcg DAILYBB PO 05/18/17 06:00 06/17/17 05:59 05/24/17 05:00 112 MCG Miscellaneous Information (Order Awaiting Action) 1 ea QS N/A 05/18/17 00:00 06/17/17 00:00 Sevelamer HCl (Renagel Tab) 1,600 mg TIDM PO 05/18/17 07:15 06/17/17 07:14 05/24/17 08:31 1,600 MG Lactobacillus Acidophilus (Floranex Tab) 4 tab TIDM PO 05/18/17 07:15 06/17/17 07:59 05/24/17 08:32 4 TAB Acetaminophen (Tylenol Tab) 650 mg Q4H PRN PO 05/17/17 20:15 06/16/17 20:14 Glucose (Glucose 40% Gel) 15-30 GRAMS 15 GRAMS... UD PRN PO 05/17/17 20:15 06/16/17 20:14 05/23/17 16:11 15 GM Glucose (Glucose Chew Tab) 4-8 Tablets 4 Tabl... UD PRN PO 05/17/17 20:15 06/16/17 20:14 Dextrose (Dextrose 50% 50ML Syringe) 25-50ML OF 50% DW IV FOR... UD PRN IV 05/17/17 20:15 06/16/17 20:14 05/24/17 03:31 25 ML Glucagon (Glucagon Inj) 1 mg UD PRN SQ 05/17/17 20:15 06/16/17 20:14 Miscellaneous Information (Consult Glycemic Management Pharmacy) 1 ea UD PRN N/A 05/17/17 20:52 06/16/17 20:51 Levofloxacin 500 mg/Prmx 100 ml @ 100 mls/hr Q48H IV 05/19/17 20:00 05/25/17 19:59 05/23/17 19:52 100 MLS/HR Levalbuterol (Xopenex Hfa Inhaler) 4 puffs Q8R INH 05/19/17 16:00 06/18/17 15:59 05/24/17 07:37 4 PUFFS Heparin Sodium (Porcine) (Heparin Sq 5000 Unit/0.5ml) 5,000 unit BID SC 05/20/17 21:00 06/19/17 20:59 05/23/17 20:08 5,000 UNIT Buspirone HCl (Buspar Tab) 5 mg BID PO 05/21/17 21:00 06/20/17 20:59 05/24/17 08:31 5 MG Metoprolol Tartrate (Lopressor Tab) 75 mg BID PO 05/22/17 21:00 06/21/17 20:59 05/23/17 19:53 75 MG Hydromorphone HCl (Dilaudid Inj) 0.5 mg Q3H PRN IV 05/23/17 09:15 06/06/17 09:14 05/23/17 21:42 0.5 MG Lorazepam 1 mg/ Syringe 1 ml @ 1 mls/min Q6H PRN IV 05/23/17 09:15 06/22/17 09:14 Lorazepam (Ativan Inj) 1 mg Q6H PRN IV 05/23/17 09:30 06/22/17 09:29 05/24/17 05:00 1 MG Senna (Senokot Tab) 17.2 mg QAM PO 05/23/17 09:45 06/22/17 09:44 05/24/17 08:32 17.2 MG Polyethylene (Miralax Powder Packet) 17 gm DAILY PO 05/23/17 09:45 06/22/17 09:44 05/23/17 11:59 17 GM Bisacodyl (Dulcolax Supp) 10 mg Q12H PRN UT 05/23/17 09:45 06/22/17 09:44 Insulin Aspart (novoLOG ASPART) SLIDING SCALE If CARB RA... Q4H SC 05/23/17 12:00 06/22/17 11:59 05/23/17 12:02 3 UNITS Insulin Glargine (Lantus Solostar Pen) 11 units DAILY SQ 05/24/17 09:00 06/23/17 08:59 Epoetin Diaz (Procrit Inj) 10,000 units TODAY@1030 IV 05/24/17 10:30 05/24/17 13:59 Impression (1) End-stage renal disease on hemodialysis (2) Bronchitis (3) Tracheomalacia (4) Diabetes mellitus (5) Anemia Patient admitted to the hospital w/ recurrent bronchitis. He has a history of severe tracheal malacia with chronic bronchiectasis. He tested negative for Influenza. He is now on broad spectrum antibiotics. Blood cultures and Mycoplasma testing are pending. CXR is negative for infiltrates. PMH - ESRD due to diabetic nephropathy on IHD since 12/25 (HD TTS at [facility] - 4 hrs 2K 2Ca F180NR Qb 450 cc/min HCO3 34 EDW 83 kg), IDDM, HTN , PVD s/p R femoral artery bypass, anemia, hypothyroidism, hypercholesterolemia , bipolar disorder, COPD w/ severe tracheomalacia and chronic bronchiectasis ( quit smoking ~ 2013). Recommendations -- currently getting hemodialysis as his regular schedule, aim for 4 liters here UF to reach his estimated dry weight, so far tolerating well, blood pressure stable. -- avoid IV fluid -- on Levaquin, dose appropriate for ESRD -- Epogen 44716 units with hemodialysis today -- tentative plan to discharge to LTAC this afternoon Will be available for any question concern during dialysis.
[2017-05-24] MEDS ORDERED: DEXTROSE 10% 1,000 ML IV SCH (11:45)
[2017-05-24] MEDS: HEPARIN SOD 5000 UNIT/0.5 ML CARP SC SCH (11:53)
[2017-05-24] MEDS: POLYETHYLENE (MIRALAX) 17 GM PACK PO SCH (11:54)
--- NOTE | 2017-05-24 12:37 | Pharmacy Progress Note ---
Glycemic Control Progress Note Date of Service May 24, 2017. Scope Glycemic Pharmacist consulted for glycemic control to write orders per [facility] inpatient glycemic control protocol. Objective Accuchecks BSG (last 24hrs): Test 05/23/17 16:04 05/23/17 16:25 05/23/17 16:46 05/23/17 20:03 Bedside Glucose 65 mg/dl (70-99) 57 mg/dl (70-99) 152 mg/dl (70-99) 80 mg/dl (70-99) Test 05/23/17 23:11 05/23/17 23:33 05/24/17 03:25 05/24/17 03:51 Bedside Glucose 60 mg/dl (70-99) 138 mg/dl (70-99) 63 mg/dl (70-99) 167 mg/dl (70-99) Test 05/24/17 05:25 Random Glucose 84 mg/dl (70-99) HbA1c: Test 05/18/17 04:10 Hemoglobin A1c 6.6 % (4.5-5.6) H Recent Pertinent Medications The patient is currently receiving: * Basal insulin: Lantus 15 units SQ Q AM * Correctional Insulin: Novolog Correction per scale Q 4 hours Goal Range: Low 120 mg/dL - High 150 mg/dL Correction Factor: 25 mg/dL/unit * Prandial insulin: Per carb ratio of 1 unit per -- grams CHO consumed Outpatient Anti-Diabetic Meds * NovoLog insulin pump * Basal = 14.4 units/day * CF = 20mg/dl/unit * CR = 1 unit for every 12g CHO consumes * Follows with Dr Sumner at [facility] – [place], [place] Endocrinology * A1c = 6.6% on 05/18/17 Assessment & Plan ASSESSMENT: 05/23/17 * BSGs have ranged 58-159 over the last 24 hours * Solu-Medrol IV discontinued yesterday afternoon * Continuous tube feeds discontinued this AM and patient is now tolerating a PO diet * Mild hypoglycemia noted last night, likely due to excess basal insulin on board while steroid effects began to dissipate * Will continue with SQ basal bolus regimen today, however reduce the Lantus dose to more closely match his out-pt basal needs * Will continue Q 4 hrs BSG checks as he does tend to be brittle. Once his BSGs begin to stabilize on a routine SQ regimen we can lessen the frequency * Will also reduce his prandial insulin doses now that steroids are discontinued * Of note, he is reported to have frequent low's in the outpatient setting. We may ultimately end up titrating back his insulin doses further during this admission if hypoglycemia recurs 05/24/17 * Multiple episodes of mild hypoglycemia noted over the last 24 hours * Patient had received 15 units of Lantus yesterday AM - this dose is excessive for him given his current poor PO intake * I had originally planned on restarting Lantus at 11 units Q AM today (20% reduction in out-pt basal dose), however his BSG was only 80 and he had only consumed 5 bites of his cereal today. He was also scheduled to have HD today. Thus I advised to hold the Lantus until the lunchtime BSG was assessed. * Pre-lunch BSG was only 70 and pt is not permitted to eat with HD. * Contacted hospitalist to start D10W at [facility] given poor PO intake and repeat episodes of hypoglycemia and need for some basal insulin given type 1 hx * Would like to give some basal insulin prior to transfer but only if pt not hypoglycemic. * He will ultimately require BID Lantus on transfer as his basal needs are not quite evident at this time. PLAN FOR INPATIENT GLYCEMIC CONTROL: * Hold AM Lantus, give 4 units prior to transfer as long as pt not hypoglycemic. Resume Lantus at reduced dose of 6 units BID * Continuing correction factor of 25 mg/dl/unit * Changing carb ratio to 1 unit per 16 grams CHO consumed * Continuing goal range of Low 120 mg/dL - High 150 mg/dL * Continue Q 4 hr BSG checks * Continue D10W at O unit BSGs stabilized, no longer hypoglycemic while receiving basal insulin and tolerating a diet. * Please note that the plan above was derived based on current level of insulin resistance and hospital stress. These recommendations are appropriate for inpatient admission only. Plan of care upon discharge will need to be reassessed to avoid potential outpatient hypo/hyperglycemia. Thank you.
[2017-05-24] MEDS ORDERED: INSULIN GLARGINE SOLOSTAR 100 UNITS/ML 3 ML PEN SQ ONE (13:15)
[2017-05-24] MEDS: METOPROLOL TARTRATE 25 MG TAB PO SCH (13:41)
== END 2017-05-24 18:16 | DRG 4 ==
LOC: EDBD 16:21 → C.EDB 16:22 → C.MSICU 20:31 → ENRESERV 20:40 → EDBEDREQ 20:44 → ENRESERV 05-18 18:34 → C.2E 05-18 19:34 → C.MSICU 05-19 06:56
PROVIDERS: ADMIT Internal Medicine; ATTEND Internal Medicine
PROC: 05HM33Z Insertion of Infusion Device into Right Internal Jugular Vein, Percutaneous Approach (ICD-10-PCS; principal; 2017-05-17)
PROC: 0B9J8ZX Drainage of Left Lower Lung Lobe, Via Natural or Artificial Opening Endoscopic, Diagnostic (ICD-10-PCS; 2017-05-19)
PROC: 0B9F8ZX Drainage of Right Lower Lung Lobe, Via Natural or Artificial Opening Endoscopic, Diagnostic (ICD-10-PCS; 2017-05-19)
PROC: 0BH18EZ Insertion of Endotracheal Airway into Trachea, Via Natural or Artificial Opening Endoscopic (ICD-10-PCS; 2017-05-19)
PROC: 5A1945Z Respiratory Ventilation, 24-96 Consecutive Hours (ICD-10-PCS; 2017-05-19)
PROC: 0B114F4 Bypass Trachea to Cutaneous with Tracheostomy Device, Percutaneous Endoscopic Approach (ICD-10-PCS; 2017-05-21)
PROC: 0BC38ZZ Extirpation of Matter from Right Main Bronchus, Via Natural or Artificial Opening Endoscopic (ICD-10-PCS; 2017-05-21)
DX: A41.9 Sepsis, unspecified organism (principal); R65.21 Severe sepsis with septic shock; J96.21 Acute and chronic respiratory failure with hypoxia; J18.9 Pneumonia, unspecified organism; I13.2 Hypertensive heart and chronic kidney disease with heart failure and with stage 5 chronic kidney disease, or end stage renal disease; I50.33 Acute on chronic diastolic (congestive) heart failure; E10.22 Type 1 diabetes mellitus with diabetic chronic kidney disease; N18.6 End stage renal disease; I21.4 Non-ST elevation (NSTEMI) myocardial infarction; E44.0 Moderate protein-calorie malnutrition; J39.8 Other specified diseases of upper respiratory tract; E10.40 Type 1 diabetes mellitus with diabetic neuropathy, unspecified; E10.51 Type 1 diabetes mellitus with diabetic peripheral angiopathy without gangrene; E10.65 Type 1 diabetes mellitus with hyperglycemia; E03.9 Hypothyroidism, unspecified; E78.5 Hyperlipidemia, unspecified; F31.9 Bipolar disorder, unspecified; K59.00 Constipation, unspecified; F39 Unspecified mood [affective] disorder; Z79.02 Long term (current) use of antithrombotics/antiplatelets; Z79.4 Long term (current) use of insulin; Z79.52 Long term (current) use of systemic steroids; Z79.899 Other long term (current) drug therapy; Z87.891 Personal history of nicotine dependence; Z99.2 Dependence on renal dialysis; Z88.0 Allergy status to penicillin; Z88.1 Allergy status to other antibiotic agents; Z88.5 Allergy status to narcotic agent; Z89.432 Acquired absence of left foot; Z96.41 Presence of insulin pump (external) (internal)